=== PATIENT | female | born 1950 | race Caucasian/White ===

== ENCOUNTER 2020-02-12 11:54 | Outpatient (REF) | payer OTHER, SELFPAY ==
--- NOTE | 2020-02-12 12:09 | MM_ITS ---
EXAMINATION: MM SCREENING DIGITAL BREAST TOMOSYNTHESIS, BILATERAL CLINICAL INFORMATION: Screening. Asymptomatic. The lifetime risk of breast cancer based on the Tyrer-Cuzick Model is 5%. COMPARISON: Mammography: 10/12/2018, 05/28/2017 TECHNIQUE: Digital breast tomosynthesis is performed in both the craniocaudal and mediolateral oblique views along with computer-aided detection (CAD). Synthesized 2D images are generated from the tomosynthesis. FINDINGS: There are scattered areas of fibroglandular density (ACR BI-RADS breast composition Category b). There are no significant masses, abnormal calcifications, or other abnormalities. There are bilateral vascular calcifications again. There are some prominent veins again seen, greater on right. MM/MM tomosynthesis screening BI IMPRESSION: No significant changes from prior studies. ASSESSMENT: BI-RADS 2: Benign RECOMMENDATION: Routine annual mammography screening. This patient's information was entered into a reminder system with a target due date for their next mammogram.
== END 2020-02-12 11:55 | disposition home or self-care (01) ==
LOC: HO.MAMMO 11:54
PROVIDERS: Visit Provider Internal Medicine
DX: Z12.31 Encounter for screening mammogram for malignant neoplasm of breast (principal)
CPT/HCPCS: 77063; 77067

== ENCOUNTER → 2020-03-30 09:59 | Outpatient (BNVA) | payer OTHER, SELFPAY | PROVIDERS: PCP Internal Medicine; Referring Provider Internal Medicine; Visit Provider Internal Medicine Endocrinology, Diabetes & Metabolism | DX: Z13.89 Encounter for screening for other disorder (principal) | CPT/HCPCS: Q3014 ==

== ENCOUNTER 2020-05-28 10:36 | Outpatient (REF) | payer OTHER, SELFPAY ==
[2020-05-28 14:26] LABS: Alanine Aminotransferase 25 U/L (0-31); Albumin Level 4.2 g/dL (3.5-5.0); Alkaline Phosphatase 50 U/L (39-117); Anion Gap 16 (12-20); Aspartate Amino Transferase 24 U/L (5-31); Bilirubin Total 0.4 mg/dL (0.0-1.0); Blood Urea Nitrogen 31 mg/dL (9-16); Calcium 10.1 mg/dL (8.4-10.2); Carbon Dioxide 23 mmol/L (22-29); Chloride 105 mmol/L (96-108); Estimated Glomerular Filt Rate 44; Glucose Fasting 184 mg/dL (60-99); Potassium 4.7 mmol/L (3.3-5.1); Sodium 139 mmol/L (135-145); Total Protein 7.2 g/dL (6.5-8.0)
[2020-05-28 14:29] LABS: Estimated Average Glucose 180 mg/dL; Hemoglobin A1c % 7.9 %
[2020-06-02 07:22] LABS: N-Telopeptide 8 (see note); NTXCreaRU 59 mg/dL (20-275)
== END 2020-05-28 10:37 | disposition home or self-care (01) ==
LOC: HO.10HDL 10:36
PROVIDERS: Visit Provider Internal Medicine Endocrinology, Diabetes & Metabolism
DX: M81.0 Age-related osteoporosis without current pathological fracture (principal); E11.65 Type 2 diabetes mellitus with hyperglycemia
CPT/HCPCS: 36415; 80053; 82523; 83036

== ENCOUNTER → 2020-06-21 07:56 | Outpatient (BNVA) | payer OTHER, SELFPAY | PROVIDERS: PCP Internal Medicine; Visit Provider Internal Medicine Endocrinology, Diabetes & Metabolism | DX: E11.65 Type 2 diabetes mellitus with hyperglycemia (principal); E11.21 Type 2 diabetes mellitus with diabetic nephropathy; E11.319 Type 2 diabetes mellitus with unspecified diabetic retinopathy without macular edema; Z79.4 Long term (current) use of insulin; E78.5 Hyperlipidemia, unspecified; I10 Essential (primary) hypertension; M81.0 Age-related osteoporosis without current pathological fracture | CPT/HCPCS: 82947; 96402; 99212; J0897 ==

== ENCOUNTER 2020-07-22 10:28 | Outpatient (REF) | payer OTHER, SELFPAY ==
--- NOTE | ~2020-07-22 | XR_ITS ---
EXAMINATION: XR THORACIC SPINE CLINICAL INFORMATION: Pain COMPARISON: Previous thoracic spine x-ray July 2016 TECHNIQUE: 3 views of the thoracic spine were obtained. FINDINGS: There is mild curvature of the lower thoracic spine to the right. Bone alignment is otherwise normal. No fracture or dislocation is seen. There is multilevel degenerative spondylosis and degenerative disc disease of the mid and lower thoracic spine. Paraspinal soft tissues are unremarkable. XR/XR thoracic spine 3V IMPRESSION: Mild scoliosis and degenerative changes.
[2020-07-22 12:45] LABS: Albumin Level 4.1 g/dL (3.5-5.0); Calcium 10.2 mg/dL (8.4-10.2)
== END 2020-07-22 10:29 | disposition home or self-care (01) ==
LOC: HO.XRAY 10:28
PROVIDERS: Absent Provider Internal Medicine; PCP Internal Medicine; Visit Provider Internal Medicine Endocrinology, Diabetes & Metabolism
DX: M54.9 Dorsalgia, unspecified (principal); M81.0 Age-related osteoporosis without current pathological fracture
CPT/HCPCS: 36415; 72072; 82040; 82310

== ENCOUNTER → 2020-10-01 09:23 | Outpatient (BNVA) | payer OTHER, SELFPAY | PROVIDERS: PCP Internal Medicine; Visit Provider Internal Medicine Endocrinology, Diabetes & Metabolism | DX: E11.65 Type 2 diabetes mellitus with hyperglycemia (principal); E11.21 Type 2 diabetes mellitus with diabetic nephropathy; E11.319 Type 2 diabetes mellitus with unspecified diabetic retinopathy without macular edema; E78.5 Hyperlipidemia, unspecified; I10 Essential (primary) hypertension; M81.0 Age-related osteoporosis without current pathological fracture; Z79.4 Long term (current) use of insulin | CPT/HCPCS: 82947; 99212 ==

== ENCOUNTER 2020-12-22 08:51 | Outpatient (REF) | payer OTHER, SELFPAY ==
[2020-12-22 10:26] LABS: Albumin Level 4.4 g/dL (3.5-5.0); Calcium 10.5 mg/dL (8.4-10.2)
[2020-12-22 10:53] LABS: Vitamin D 25-OH Total 25.5 ng/mL (>30)
[2020-12-27 16:41] LABS: N-Telopeptide 16 (see note); NTXCreaRU 89 mg/dL (20-275)
== END 2020-12-22 08:52 | disposition home or self-care (01) ==
LOC: HO.LAB 08:51
PROVIDERS: PCP Internal Medicine; Visit Provider Internal Medicine Endocrinology, Diabetes & Metabolism
DX: M81.0 Age-related osteoporosis without current pathological fracture (principal)
CPT/HCPCS: 36415; 82040; 82306; 82310; 82523

== ENCOUNTER 2021-01-17 10:17 | Outpatient (REF) | payer OTHER, SELFPAY ==
[2021-01-17 11:09] LABS: Alanine Aminotransferase 23 U/L (0-31); Albumin Level 4.2 g/dL (3.5-5.0); Alkaline Phosphatase 67 U/L (39-117); Anion Gap 12 (12-20); Aspartate Amino Transferase 26 U/L (5-31); Bilirubin Total 0.4 mg/dL (0.0-1.0); Blood Urea Nitrogen 33 mg/dL (9-16); Calcium 10.2 mg/dL (8.4-10.2); Carbon Dioxide 28 mmol/L (22-29); Chloride 103 mmol/L (96-108); Estimated Glomerular Filt Rate 37; Glucose Random 120 mg/dL (60-115); Phosphorus 3.1 mg/dL (2.7-4.5); Potassium 4.3 mmol/L (3.3-5.1); Sodium 139 mmol/L (135-145); Total Protein 7.4 g/dL (6.5-8.0)
[2021-01-17 11:38] LABS: Vitamin D 25-OH Total 26.2 ng/mL (>30)
[2021-01-18 14:31] LABS: Calcium (PTHI) 9.9 mg/dL (8.6-10.4); PTHI 158 pg/mL (14-64)
== END 2021-01-17 10:18 | disposition home or self-care (01) ==
LOC: HO.LAB 10:17
PROVIDERS: PCP Internal Medicine; Visit Provider Internal Medicine
DX: E55.9 Vitamin D deficiency, unspecified (principal); M81.0 Age-related osteoporosis without current pathological fracture
CPT/HCPCS: 36415; 80053; 82306; 83970; 84100

== ENCOUNTER 2021-01-21 10:39 | Outpatient (REF) | payer OTHER, SELFPAY ==
[2021-01-21 13:46] LABS: Anion Gap 12 (12-20); Blood Urea Nitrogen 35 mg/dL (9-16); Calcium 9.8 mg/dL (8.4-10.2); Carbon Dioxide 26 mmol/L (22-29); Chloride 104 mmol/L (96-108); Estimated Glomerular Filt Rate 39; Glucose Random 222 mg/dL (60-115); Potassium 5.1 mmol/L (3.3-5.1); Sodium 137 mmol/L (135-145)
== END 2021-01-21 10:40 | disposition home or self-care (01) ==
LOC: HO.10HDL 10:39
PROVIDERS: Visit Provider Internal Medicine
DX: M81.0 Age-related osteoporosis without current pathological fracture (principal)
CPT/HCPCS: 36415; 80048

== ENCOUNTER 2021-12-01 14:23 | Outpatient (REF) | payer OTHER, SELFPAY ==
--- NOTE | ~2021-12-01 | MM_ITS ---
EXAMINATION: BONE DENSITOMETRY CLINICAL INDICATION: Age-related osteoporosis without current pathological fracture. COMPARISON: Previous BD dated 10/07/2019 and baseline BD dated 10/02/2017. TECHNIQUE: Using a [employer] DXA System (software version: 13.1) manufactured by [employer], dual-energy x-ray absorptiometry was performed of the lumbar spine and left hip. The images are of good technical quality. Summary results are attached. FINDINGS: AP SPINE L1-L4: Current: BMD 0.821 g/cm2, Z-score -0.8, T-score -3.0, osteoporosis, 6.8% decrease from previous, 9.2% increase from baseline (<5% change is not significant). Prior: BMD 0.881 g/cm2. Baseline: BMD 0.752 g/cm2. LEFT FEMUR, NECK: Current: BMD 0.557 g/cm2, Z-score -1.4, T-score -3.5, osteoporosis. Prior: BMD 0.650 g/cm2. Baseline: BMD 0.619 g/cm2. LEFT FEMUR, TOTAL: Current: BMD 0.591 g/cm2, Z-score -1.4, T-score -3.3, osteoporosis, 12.6% decrease from previous, 10.6% decrease from baseline (<5% change is not significant). Prior: BMD 0.676 g/cm2. Baseline: BMD 0.661 g/cm2. IDENTIFIED RISK FACTORS: Renal, history of fracture (adult), osteoporosis, anticonvulsant. Early menopause, secondary osteoporosis, glucocorticoids (chronic). HISTORY OF FRACTURE: Ankle. MEDICATIONS: Vitamin D. MM/XR DEXA axial skeleton IMPRESSION: 1. DIAGNOSIS: Osteoporosis based on the lowest T-score value of -3.5 in the femoral neck applying World Health Organization criteria. 2. 10-YEAR FRACTURE RISK PREDICTION, FRAX: According to the guidelines, FRAX calculation should only be performed on patients in the osteopenia bone density category. Therefore, FRAX was not performed on this patient. 3. Treatment Recommendations: NOF guidelines recommend consideration for treatment in postmenopausal women and men age 50 and older presenting with the following: -A hip or vertebral (clinical or morphometric) fracture. -T-score less than or equal to -2.5 at the femoral neck or spine after appropriate evaluation to exclude secondary causes. -Low bone mass at the hip or spine and a 10-year fracture probability by FRAX of greater than or equal to 3% for hip fracture or greater than or equal to 20% for major osteoporotic fracture based on the [place] adapted WHO algorithm. 4. Other Recommendations: All treatment decisions require clinical judgment and consideration of individual patient factors, including patient preferences, comorbidities, previous drug use, risk factors not captured in the FRAX model (e.g. frailty, falls, vitamin D deficiency, increased bone turnover, interval significant decline in bone density) and possible under or overestimation of fracture risk by FRAX. Additional medical evaluation for secondary cause of low bone mineral density may be appropriate. FUTURE SCAN RECOMMENDATION: People with diagnosed cases of osteoporosis or at high risk for fracture should have regular bone mineral density tests. For patients eligible for Medicare, routine testing is allowed once every 2 years. The testing frequency can be increased to one year for patients who have rapidly progressing disease, those who are receiving or discontinuing medical therapy to restore bone mass, or have additional risk factors.
== END 2021-12-01 14:24 | disposition home or self-care (01) ==
LOC: HO.MAMMO 14:23
PROVIDERS: PCP Internal Medicine; Visit Provider Internal Medicine Endocrinology, Diabetes & Metabolism
DX: Z13.820 Encounter for screening for osteoporosis (principal); M81.0 Age-related osteoporosis without current pathological fracture; Z78.0 Asymptomatic menopausal state
CPT/HCPCS: 77080

== ENCOUNTER 2021-12-05 10:47 | Outpatient (REF) | payer OTHER, SELFPAY ==
[2021-12-05 15:55] LABS: Albumin Level 4.1 g/dL (3.5-5.0)
[2021-12-07 13:33] LABS: Calcium (PTHI) 10.4 mg/dL (8.6-10.4); PTHI 111 pg/mL (16-77)
== END 2021-12-05 10:48 | disposition home or self-care (01) ==
LOC: HO.10HDL 10:47
PROVIDERS: Visit Provider Internal Medicine Endocrinology, Diabetes & Metabolism
DX: E55.9 Vitamin D deficiency, unspecified (principal)
CPT/HCPCS: 36415; 82040; 82306; 83970

== ENCOUNTER → 2021-12-07 12:47 | Outpatient (BNVA) | payer OTHER, SELFPAY | PROVIDERS: PCP Internal Medicine; Visit Provider Internal Medicine Endocrinology, Diabetes & Metabolism | DX: M81.0 Age-related osteoporosis without current pathological fracture (principal); E11.65 Type 2 diabetes mellitus with hyperglycemia; E55.9 Vitamin D deficiency, unspecified; E11.319 Type 2 diabetes mellitus with unspecified diabetic retinopathy without macular edema; E11.22 Type 2 diabetes mellitus with diabetic chronic kidney disease; I12.0 Hypertensive chronic kidney disease with stage 5 chronic kidney disease or end stage renal disease; N18.6 End stage renal disease; Z79.4 Long term (current) use of insulin; Z94.0 Kidney transplant status | CPT/HCPCS: 82947; 83036; 96372; 99212; J0897 ==

== ENCOUNTER → 2021-12-30 10:51 | Outpatient (BNVA) | payer OTHER, SELFPAY | PROVIDERS: PCP Internal Medicine; Visit Provider Registered Nurse Diabetes Educator | DX: E11.319 Type 2 diabetes mellitus with unspecified diabetic retinopathy without macular edema (principal) | CPT/HCPCS: 99211; 99212 ==

== ENCOUNTER 2022-01-13 13:46 | Outpatient (REF) | payer OTHER, SELFPAY ==
[2022-01-13 14:58] LABS: Anion Gap 17 (12-20); Blood Urea Nitrogen 31 mg/dL (9-16); Calcium 10.1 mg/dL (8.4-10.2); Carbon Dioxide 24 mmol/L (22-29); Chloride 101 mmol/L (96-108); Cholesterol 160 mg/dL; Estimated Glomerular Filt Rate 49; Glucose Random 193 mg/dL (60-115); HDL Cholesterol 68 mg/dL; LDL Cholesterol Calculated 68 mg/dl; Potassium 4.5 mmol/L (3.3-5.1); Sodium 137 mmol/L (135-145); Triglycerides 122 mg/dL
[2022-01-13 15:16] LABS: Creatinine Urine 53.16 mg/dL; Microalbum/Creatinine Ratio Ur 82.7 ug/mg cr
[2022-01-13 15:20] LABS: Vitamin D 25-OH Total 24.7 ng/mL (>30)
== END 2022-01-13 13:47 | disposition home or self-care (01) ==
LOC: HO.LAB 13:46
PROVIDERS: PCP Internal Medicine; Visit Provider Internal Medicine Endocrinology, Diabetes & Metabolism
DX: E11.65 Type 2 diabetes mellitus with hyperglycemia (principal); E55.9 Vitamin D deficiency, unspecified
CPT/HCPCS: 36415; 80048; 80061; 82043; 82306; 99211

== ENCOUNTER → 2022-01-24 11:07 | Outpatient (BNVA) | payer OTHER, SELFPAY | PROVIDERS: PCP Internal Medicine; Visit Provider Dietitian, Registered | DX: E11.65 Type 2 diabetes mellitus with hyperglycemia (principal) | CPT/HCPCS: 97802 ==

== ENCOUNTER 2022-04-13 11:49 | Outpatient (REF) | payer OTHER, SELFPAY ==
[2022-04-13 14:07] LABS: Vitamin D 25-OH Total 31.6 ng/mL (>30)
== END 2022-04-13 11:50 | disposition home or self-care (01) ==
LOC: HO.LAB 11:49
PROVIDERS: PCP Internal Medicine; Visit Provider Internal Medicine Endocrinology, Diabetes & Metabolism
DX: E55.9 Vitamin D deficiency, unspecified (principal)
CPT/HCPCS: 36415; 82306

== ENCOUNTER → 2022-04-19 13:46 | Outpatient (BNVA) | payer OTHER, SELFPAY | PROVIDERS: PCP Internal Medicine; Visit Provider Internal Medicine Endocrinology, Diabetes & Metabolism | DX: E11.65 Type 2 diabetes mellitus with hyperglycemia (principal); M81.0 Age-related osteoporosis without current pathological fracture | CPT/HCPCS: 82947; 83036; 99212 ==

== ENCOUNTER → 2022-06-13 09:47 | Outpatient (BNVA) | payer OTHER, SELFPAY | PROVIDERS: PCP Internal Medicine; Visit Provider Internal Medicine Endocrinology, Diabetes & Metabolism | DX: M81.0 Age-related osteoporosis without current pathological fracture (principal); Z79.620 Long term (current) use of immunosuppressive biologic | CPT/HCPCS: 96372; J0897 ==

== ENCOUNTER → 2022-09-01 12:44 | Outpatient (BNVA) | payer OTHER, SELFPAY | PROVIDERS: PCP Internal Medicine; Visit Provider Internal Medicine | DX: Z01.818 Encounter for other preprocedural examination (principal); Z86.010 Personal history of colon polyps | CPT/HCPCS: 99202 ==

== ENCOUNTER 2022-10-24 09:59 | Outpatient (REF) | payer OTHER, SELFPAY ==
[2022-10-24 11:18] LABS: MANUAL DIFF FLAG NO
[2022-10-24 11:36] LABS: Basophils Absolute Auto 0.1 X10*3/uL (0.0-0.2); Basophils Percent Auto 0.5 % (0-2); Eosinophils Absolute Auto 0.5 X10*3/uL (0.0-0.4); Eosinophils Percent Auto 4.2 % (0-4); Hematocrit 36.7 % (37.0-47.0); Hemoglobin 11.7 g/dl (12.0-16.0); Imm Gran Abs Auto 0.06 X10*3/uL (0.00-0.03); Imm Gran Pct Auto 0.5 % (0.0-0.4); Lymphocytes Absolute Auto 2.4 X10*3/uL (1.2-4.9); Mean Corpuscular HGB Conc 31.9 g/dl (31.0-35.0); Mean Corpuscular Hemoglobin 30.2 pg (27.0-33.0); Mean Corpuscular Volume 94.8 fL (80.0-98.0); Mean Platelet Volume 12.3 fL (9.4-12.3); Monocytes Absolute Auto 0.8 X10*3/uL (0.1-1.2); Monocytes Percent Auto 6.5 % (2-11); Neutrophils Absolute Auto 7.8 x10*3/uL (2.0-8.3); Neutrophils Percent Auto 67.3 % (45-73); Platelet Count 294 X10*3/uL (160-400); Red Blood Count 3.87 X10*6/uL (4.20-5.50); Red Cell Distribution Width 18.2 % (11.0-16.0); White Blood Count 11.6 X10*3/uL (4.8-10.8)
[2022-10-24 12:58] LABS: Anion Gap 16 (12-20); Blood Urea Nitrogen 38 mg/dL (9-16); Calcium 9.7 mg/dL (8.4-10.2); Carbon Dioxide 17 mmol/L (22-29); Chloride 114 mmol/L (96-108); Cholesterol 125 mg/dL; Estimated Glomerular Filt Rate 50; HDL Cholesterol 47 mg/dL; Iron 156 mcg/dL (30-160); LDL Cholesterol Calculated 45 mg/dl; Percent Iron Saturation 56 % (15-50); Potassium 4.8 mmol/L (3.3-5.1); Sodium 142 mmol/L (135-145); Total Iron Binding Capacity 277 mcg/dL (228-428); Triglycerides 168 mg/dL; Unsaturated Iron Binding 121 ug/dL; Vitamin D 25-OH Total 33.4 ng/mL (>30)
[2022-10-24 13:23] LABS: Glucose Random 55 mg/dL (60-115)
== END 2022-10-24 10:00 | disposition home or self-care (01) ==
LOC: HO.HHCL 09:59
PROVIDERS: Visit Provider Internal Medicine
DX: E11.22 Type 2 diabetes mellitus with diabetic chronic kidney disease (principal); N18.30 Chronic kidney disease, stage 3 unspecified; R19.7 Diarrhea, unspecified; D50.0 Iron deficiency anemia secondary to blood loss (chronic); Z79.4 Long term (current) use of insulin
CPT/HCPCS: 36415; 80048; 80061; 82306; 83540; 85025

== ENCOUNTER 2022-10-25 14:26 | Outpatient (REF) | payer OTHER, SELFPAY ==
[2022-10-25 17:57] LABS: Leukocytes Stool Qualitative NEGATIVE (NEGATIVE)
[2022-10-26 07:25] LABS: Adenovirus F 40/41 Not Detected (Not Detect.); Astrovirus Not Detected (Not Detect.); Campylobacter Not Detected (Not Detect.); Cryptosporidium Not Detected (Not Detect.); Cyclospora cayetanensis Not Detected (Not Detect.); E. coli EAEC Not Detected (Not Detect.); E. coli EPEC Not Detected (Not Detect.); E. coli ETEC Not Detected (Not Detect.); E. coli STEC Not Detected (Not Detect.); Entamoeba histolytica Not Detected (Not Detect.); Giardia lamblia Not Detected (Not Detect.); Norovirus GI/GII Not Detected (Not Detect.); Plesiomonas shigelloides Not Detected (Not Detect.); Rotavirus A Not Detected (Not Detect.); Salmonella Not Detected (Not Detect.); Sapovirus Not Detected (Not Detect.); Shigella sp./EIEC Not Detected (Not Detect.); Vibrio Not Detected (Not Detect.); Vibrio Cholerae Not Detected (Not Detect.); Yersinia enterocolitica Not Detected (Not Detect.)
[2022-11-01 08:19] LABS: Fecal Fat Qualitative Abnormal (Normal)
== END 2022-10-25 14:27 | disposition home or self-care (01) ==
LOC: HO.HHCLNP 14:26
PROVIDERS: Internal Medicine Geriatric Medicine; Visit Provider Internal Medicine
DX: R19.7 Diarrhea, unspecified (principal)
CPT/HCPCS: 82705; 87329; 87493; 87507; 89055

== ENCOUNTER 2022-11-01 12:21 | Outpatient (AMB) | payer OTHER, SELFPAY ==
--- NOTE | 2022-11-01 12:29 | MHC.OFFVIS ---
Intake Vital Signs 11/01/22 12:33 Height 4 ft 9 in Weight 108 lb 7.479 oz BMI 23.5 BP 118/46 L Blood Pressure Location Rt brachial Position Sitting Pulse 82 Pulse Source Pulse Oximeter Intake Visit Reasons: Osteoporosis and DM Intake Note: Patient present today to follow up on Type 2 Diabetes Mellitus and Osteoporosis. Last Diabetic Eye exam: 04/2022 Last Podiatry Visit: None Random Glucose:79 mg/dl at 12:43 pm 104 mg/dl 1:14 pm HgA1C: 7.0% Property Management Coordinator Required: Yes Property Management Coordinator Language: Citizen Of [place] Accompanied by: Daughter Allergies diphenhydramine [From Benadryl] Adverse Reaction (Verified 11/01/22 12:37) Anxiety HPI HPI Comments History of Present Illness Details 71 yo female today for fup visit, she was seen for diabetes and osteoporosis management She is feeling well. She had the last Prolia shot on 06/13/2022. Her Prolia was withheld by previous provider She is currently on Lantus 10 units , Humalog 2-5 units premeals SGlucometerhe do shows she is checking wnloa her point cares twice a day. Ranges 84 to 50 with average 169 79% range with 21% hyperglycemia and no hypoglycemia 169 reports that no hypoglycemia . She has history of and left ankle fracture after falling in the bathroom 3 years ago treated with surgery. She was on alendronate while she was living on [place] for few years she does not remember how many. Risk factors for osteoporosis is chronic use of PPI. She does not have hyperthyroidism. Had history of secondary hyperparathyroidism due to CKD end-stage renal disease. She has DM type 2 diagnosed 1984. She has other PMH of ESRD s/p kidney transplant on 2011, on prednisone 5 mg daily, Sees Dr. Page of nephrology she had GERD, HTN, dyslipidemia. Osteoporosis. She has retinopathy s/p laser last time 1 year ago. Diabetic nephropathy, neuropathy. no Macrovascular disease. Last ophthalmology evaluation: 04/2022 , she has retinopathy. She has nocturia 1 time only, denies polydipsia, polyuria, + numbness, tingling. denies blurred vision. 10/08/2019 DEXA scan AP SPINE L1-L4: Current: BMD 0.881 g/cm2, Z-score -0.7, T-score -2.5, osteoporosis, 17.2% increase from baseline (<5% change is not significant). Baseline: BMD 0.752 g/cm2. LEFT FEMUR, NECK: Current: BMD 0.650 g/cm2, Z-score -1.0, T-score -2.8, osteoporosis. Baseline: BMD 0.619 g/cm2. LEFT FEMUR, TOTAL: Current: BMD 0.676 g/cm2, Z-score -1.1, T-score -2.6, osteoporosis, 2.3% increase from baseline (<5% change is not significant). Baseline: BMD 0.661 g/cm2. Laboratory Tests 05/15/19 05/15/19 05/20/19 12:00 12:00 09:00 Sodium Potassium Creatinine Estimated GFR Hemoglobin A1c % Calcium AST ALT Alkaline Phosphata se N-Telopeptide X-li nked 25-OH Vitamin D To brendon 54.7 Ur Random Microalb umin Ur 24 Hour Volume 2825 Ur Calcium 24 Hr 31 L Calcium/Creat 24 H r 37 Bone Specific Alk Phos 6.0 08/13/19 05/28/20 05/28/20 11:20 10:45 10:48 Sodium 139 Potassium 4.7 Creatinine 1.22 Estimated GFR 44 Hemoglobin A1c % Calcium AST 24 ALT 25 Alkaline Phosphata se 50 N-Telopeptide X-li nked 8 25-OH Vitamin D To brendon Ur Random Microalb umin 6.0 Ur 24 Hour Volume Ur Calcium 24 Hr Calcium/Creat 24 H r Bone Specific Alk Phos 05/28/20 07/22/20 10:48 11:41 Sodium Potassium Creatinine Estimated GFR Hemoglobin A1c % 7.9 Calcium 10.2 AST ALT Alkaline Phosphata se N-Telopeptide X-li nked 25-OH Vitamin D To brendon Ur Random Microalb umin Ur 24 Hour Volume Ur Calcium 24 Hr Calcium/Creat 24 H r Bone Specific Alk Phos Laboratory Tests 05/15/19 05/20/19 08/13/19 12:00 09:00 11:20 Sodium Potassium Creatinine Estimated GFR Fasting Glucose Hgb A1c Fingerstic k Hemoglobin A1c % Calcium AST ALT Albumin N-Telopeptide X-li nked 25-OH Vitamin D To brendon 54.7 Ur Creatinine 24 H our 0.84 Microalb/Creat Rat io 4.7 12/15/19 05/28/20 05/28/20 10:57 10:45 10:48 Sodium 139 Potassium 4.7 Creatinine 1.22 Estimated GFR 44 Fasting Glucose 184 H Hgb A1c Fingerstic k 8.2 Hemoglobin A1c % Calcium 10.1 AST 24 ALT 25 Albumin 4.2 N-Telopeptide X-li nked 8 25-OH Vitamin D To brendon Ur Creatinine 24 H our Microalb/Creat Rat io 05/28/20 10:48 Sodium Potassium Creatinine Estimated GFR Fasting Glucose Hgb A1c Fingerstic k Hemoglobin A1c % 7.9 Calcium AST ALT Albumin N-Telopeptide X-li nked 25-OH Vitamin D To brendon Ur Creatinine 24 H our Microalb/Creat Rat io [facility] Medical History (Updated 09/01/22 @ 13:15 by Leny Juarez MD) Diabetes type 2, uncontrolled Diabetic nephropathy associated with type 2 diabetes mellitus Diabetic retinopathy associated with type 2 diabetes mellitus Dyslipidemia Hypertension FCI (current) use of insulin Osteoporosis Vitamin D deficiency Surgical History History of esophagogastroduodenoscopy (EGD) History of renal transplant Hx of arteriovenostomy for renal dialysis Hx of section Hx of colonoscopy Hx of tonsillectomy Family History Father No problems noted. Mother No problems noted. Sister Breast cancer Diabetes Maternal Aunt Cancer Maternal Uncle Cancer Social History Household Members: Spouse Alcohol intake: never Patient Tobacco Use Status: Never used Tobacco service: No Current occupational status: retired Gender identity: Female Physical Exam Vital Signs: Last Vital Signs Pulse 82 11/01/22 12:33 BP 118/46 L 11/01/22 12:33 BMI result Body Mass Index 23.5 Absence of Cushingoid features. Absence of acromegalic features. Neck exam reveals nl size thyroid about 15 gms. No thyroid nodules palpable. No carotid bruits present. Lungs CTA. Heart S1 S2, Reg R/R. No M/R/ G. Skin exam reveals absence of vitiligo or acanthosis nigricans. Abdominal exam reveals Soft NT/ND with NA BS. No organomegaly present. Neck Other: . Extrem Other: Visual exam of foot performed. No ulcerations or open lesions. No onchomycosis, no callouses.Pulses 2 + distally Sensation intact to monofilament exam. Vibratory sensation sensed is decreased with 128 Hz tuning fork Results AMB Hemoglobin A1c AMB Hemoglobin A1c 7.0 % Last Edit by Angle Bowens on 11/01/22 13:03 Results Reviewed Results Reviewed: 11/01/22 12:43 Glucose, Whole Blood Routine 11/01/22 13:12 Glucose, Whole Blood Routine Laboratory Last Values Glucose (Clinic) 104 mg/dL (60-115) 11/01/22 13:12 Hgb A1c (Clinic) 7.0 % (4.0-6.0) H 11/01/22 12:51 Assessment & Plan Assessment & Plan (1) Diabetes type 2, uncontrolled: Code(s): E11.65 - Type 2 diabetes mellitus with hyperglycemia Plan: This 71-year-old female with a history of type 2 diabetes being treated with basal- bolus insulin with excellent glycemic control with microvascular complications of status post renal transplant with CKD stage 3 and diabetic retinopathy Plan is check her point cares pre and post meals. Will arrange for patient to get a Dexcom G7 to rule out any occult hypoglycemia. plan is to continue the current regimen. For now. (2) Osteoporosis: Code(s): M81.0 - Age-related osteoporosis without current pathological fracture Plan: Patient has severe osteoporosis as a very high risk for fracture. She has CKD-bone mineral disease. She was receiving Prolia but this was held for unknown reasons. Secondary workup was negative. The plan is that the patient follow-up with Nephrology for treatment of the CKD-bone mineral disease to be optimized. Otherwise, we will reinitiate Prolia. A dose of Prolia will be given today Orders: Orders AMB Hemoglobin A1c Today E11.65 - Type 2 diabetes mellitus with hyperglycemia Coding Level of Care Code Est Pt Level 4 (74552) Diagnoses Diabetes type 2, uncontrolled E11.65 Osteoporosis M81.0
[2022-11-01 12:33] VITALS: BP 118/46; PULSE 82; BMI 23.5
[2022-11-01 12:47] LABS: Glucose, Whole Blood 79 mg/dL (60-115)
[2022-11-01 13:16] LABS: Glucose, Whole Blood 104 mg/dL (60-115)
== END 2022-11-01 14:31 | disposition home or self-care (01) ==
PROVIDERS: PCP Internal Medicine; Referring Provider Internal Medicine; Visit Provider Internal Medicine Endocrinology, Diabetes & Metabolism
DX: E11.65 Type 2 diabetes mellitus with hyperglycemia (principal); M81.0 Age-related osteoporosis without current pathological fracture
CPT/HCPCS: 99214

== ENCOUNTER → 2022-11-01 12:21 | Outpatient (BNVA) | payer OTHER, SELFPAY | PROVIDERS: Visit Provider Internal Medicine Endocrinology, Diabetes & Metabolism | DX: M81.0 Age-related osteoporosis without current pathological fracture (principal); E11.65 Type 2 diabetes mellitus with hyperglycemia | CPT/HCPCS: 82947; 83036; 99212 ==

== ENCOUNTER 2022-12-19 10:17 | Outpatient (AMB) | payer OTHER, SELFPAY ==
--- NOTE | 2022-12-19 10:23 | AM.OFFVISNUR ---
Intake Intake Visit Reasons: Prolia Allergies diphenhydramine [From Benadryl] Adverse Reaction (Verified 11/01/22 12:37) Anxiety Office Meds Prolia 60 mg/mL subcutaneous syringe Performing Provider: Julius Pelletier MD [place] [facility] Administered by: Sanjay Bright RN on 12/19/22 10:23 Dose Route Admin Location Dispensed Lot Number Expiration Date [place] [employer] 60 mg subcut R arm 1 mL [id number] 11/23/24 [facility] Comments: Patient has a left sided fistula. Left arm contraindicated. Coding Assessment & Plan Assessment & Plan Orders: Orders AMB Denosumab Injection Practice Supplied Today M81.0 - Age-related osteoporosis without current pathological fracture
== END 2022-12-19 10:37 | disposition home or self-care (01) ==
PROVIDERS: PCP Internal Medicine; Visit Provider Internal Medicine Endocrinology, Diabetes & Metabolism
DX: M81.0 Age-related osteoporosis without current pathological fracture (principal)

== ENCOUNTER → 2022-12-19 10:17 | Outpatient (BNVA) | payer OTHER, SELFPAY | PROVIDERS: PCP Internal Medicine; Visit Provider Internal Medicine Endocrinology, Diabetes & Metabolism | DX: M81.0 Age-related osteoporosis without current pathological fracture (principal); Z79.620 Long term (current) use of immunosuppressive biologic | CPT/HCPCS: 96372; J0897 ==

== ENCOUNTER 2023-05-29 09:23 | Outpatient (AMB) | payer OTHER, SELFPAY ==
[2023-05-29 09:29] VITALS: BP 154/64; PULSE 68; BMI 22.9
--- NOTE | 2023-05-29 09:29 | A.OFFVIS_ITS ---
Intake Vital Signs 05/29/23 09:29 Height 4 ft 9 in Weight 106 lb 0.677 oz BMI 22.9 BP 154/64 H Blood Pressure Location Rt brachial Position Sitting Pulse 68 Pulse Source Pulse Oximeter Intake Visit Reasons: DM-confirmed Intake Note: Patient present today to follow up on Type 2 Diabetes Mellitus. Last Diabetic Eye exam: 06/2022 Last Podiatry Visit: Patient doesn't have one. Random Glucose: 82 mg/dl HgA1C: 7.6% Lookback Coordinator Required: Yes Lookback Coordinator Language: Single Spindle Screw Machine Operator Name: Emelina medical staff Information Interpreted: non-clinical & clinical Accompanied by: Daughter Allergies diphenhydramine [From Benadryl] Adverse Reaction (Verified 05/29/23 09:36) Anxiety Medication List - Last Reconciled 05/29/23 by Julius Pelletier MD acetaminophen 500 mg PO NEEDED PRN apixaban (Eliquis) 5 mg PO DAILY ascorbic acid (vitamin C) (Vitamin C) 500 mg PO QAM atorvastatin 80 mg PO BEDTIME blood sugar diagnostic (Segetis Verio test strips) 4 times in day blood-glucose meter (ShopmiumTouch Verio Flex Meter) As directed cholecalciferol (vitamin D3) (Vitamin D3) 50 mcg (2 x 25 mcg (1,000 unit)) PO QAM docusate sodium 100 mg PO BID empagliflozin (Jardiance) 25 mg PO QAM ferrous sulfate 325 mg PO BID fluticasone propionate 50 mcg/actuation 1 - 2 sprays intranasal DAILY PRN gabapentin 100 mg PO DAILY insulin glargine (Lantus Solostar U-100 Insulin) 10 units (0.1 mL) subcut QPM insulin lispro (Humalog KwikPen (U-100) Insulin) 2 - 5 units (0.02 - 0.05 mL) subcut TID insulin NPH and regular human 100 unit/mL (70-30) (Humulin 70/30 U-100 KwikPen) 10 units with breakfast and 5 units with dinner subcut daily; 30 days lancets (Pikanoteuch Delica Plus Lancet) TEST BLOOD SUGAR 4 TIMES A DAY lisinopril 2.5 mg PO QAM melatonin 5 mg PO BEDTIME mycophenolate sodium 180 mg PO BID pantoprazole 40 mg PO DAILY pen needle, diabetic (BD Florencia 2nd Gen Pen Needle) twice a day prednisone 5 mg PO DAILY tacrolimus 3 mg PO BID trazodone 200 mg PO BEDTIME PRN HPI HPI Comments 2 History of Present Illness Details 72 yo female today for fup visit, she was seen for diabetes and osteoporosis management She is feeling well. She had the last Prolia shot on 06/13/2022. Her Prolia was withheld by previous provider She is currently on Lantus 10 units , Humalog 2-5 units premeals SGlucometerhe do shows she is checking wnloa her point cares 3X a day. Ranges 53 to 321with average 173 55% range with 40% hyperglycemia and 5% hypoglycemia reports that no hypoglycemia . Very rare hypoglycemia She has history of and left ankle fracture after falling in the bathroom 3 years ago treated with surgery. She was on alendronate while she was living on [place] for few years she does not remember how many. Risk factors for osteoporosis is chronic use of PPI. She does not have hyperthyroidism. Had history of secondary hyperparathyroidism due to CKD end- stage renal disease. She has DM type 2 diagnosed 1984. She has other PMH of ESRD s/p kidney transplant on 2011, on prednisone 5 mg daily, Sees Dr. Page of nephrology she had GERD, HTN, dyslipidemia. Osteoporosis. She has retinopathy s/p laser last time 1 year ago. Diabetic nephropathy, neuropathy. no Macrovascular disease. Last ophthalmology evaluation: 06/2022 , she has retinopathy. She has nocturia 1 time only, denies polydipsia, polyuria, + numbness, tingling. denies blurred vision. 10/08/2019 DEXA scan AP SPINE L1-L4: Current: BMD 0.881 g/cm2, Z-score -0.7, T-score -2.5, osteoporosis, 17.2% increase from baseline (<5% change is not significant). Baseline: BMD 0.752 g/cm2. LEFT FEMUR, NECK: Current: BMD 0.650 g/cm2, Z-score -1.0, T-score -2.8, osteoporosis. Baseline: BMD 0.619 g/cm2. LEFT FEMUR, TOTAL: Current: BMD 0.676 g/cm2, Z-score -1.1, T-score -2.6, osteoporosis, 2.3% increase from baseline (<5% change is not significant). Baseline: BMD 0.661 g/cm2. Laboratory Tests 05/15/19 05/15/19 05/20/19 12:00 12:00 09:00 Sodium Potassium Creatinine Estimated GFR Hemoglobin A1c % Calcium AST ALT Alkaline Phosphata se N-Telopeptide X-li nked 25-OH Vitamin D To brendon 54.7 Ur Random Microalb umin Ur 24 Hour Volume 2825 Ur Calcium 24 Hr 31 L Calcium/Creat 24 H r 37 Bone Specific Alk Phos 6.0 08/13/19 05/28/20 05/28/20 11:20 10:45 10:48 Sodium 139 Potassium 4.7 Creatinine 1.22 Estimated GFR 44 Hemoglobin A1c % Calcium AST 24 ALT 25 Alkaline Phosphata se 50 N-Telopeptide X-li nked 8 25-OH Vitamin D To brendon Ur Random Microalb umin 6.0 Ur 24 Hour Volume Ur Calcium 24 Hr Calcium/Creat 24 H r Bone Specific Alk Phos 05/28/20 07/22/20 10:48 11:41 Sodium Potassium Creatinine Estimated GFR Hemoglobin A1c % 7.9 Calcium 10.2 AST ALT Alkaline Phosphata se N-Telopeptide X-li nked 25-OH Vitamin D To brendon Ur Random Microalb umin Ur 24 Hour Volume Ur Calcium 24 Hr Calcium/Creat 24 H r Bone Specific Alk Phos Laboratory Tests 05/15/19 05/20/19 08/13/19 12:00 09:00 11:20 Sodium Potassium Creatinine Estimated GFR Fasting Glucose Hgb A1c Fingerstic k Hemoglobin A1c % Calcium AST ALT Albumin N-Telopeptide X-li nked 25-OH Vitamin D To brendon 54.7 Ur Creatinine 24 H our 0.84 Microalb/Creat Rat io 4.7 12/15/19 05/28/20 05/28/20 10:57 10:45 10:48 Sodium 139 Potassium 4.7 Creatinine 1.22 Estimated GFR 44 Fasting Glucose 184 H Hgb A1c Fingerstic k 8.2 Hemoglobin A1c % Calcium 10.1 AST 24 ALT 25 Albumin 4.2 N-Telopeptide X-li nked 8 25-OH Vitamin D To brenodn Ur Creatinine 24 H our Microalb/Creat Rat io 05/28/20 10:48 Sodium Potassium Creatinine Estimated GFR Fasting Glucose Hgb A1c Fingerstic k Hemoglobin A1c % 7.9 Calcium AST ALT Albumin N-Telopeptide X-li nked 25-OH Vitamin D To brendon Ur Creatinine 24 H our Microalb/Creat Rat io on Prolia 60 mg q.6 months. 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 Mother No problems noted. Sister Breast cancer Diabetes Maternal Aunt Cancer Maternal Uncle Cancer Social History Household Members: Spouse Alcohol intake: never Patient Tobacco Use Status: Never used Tobacco service: No Current occupational status: retired Gender identity: Female Physical Exam Vital Signs: Last Vital Signs Pulse 68 05/29/23 09:29 BP 154/64 H 05/29/23 09:29 BMI result Body Mass Index 22.9 Absence of Cushingoid features. Absence of acromegalic features. Neck exam reveals nl size thyroid about 15 gms. No thyroid nodules palpable. No carotid bruits present. Lungs CTA. Heart S1 S2, Reg R/R. No M/R/ G. Skin exam reveals absence of vitiligo or acanthosis nigricans. Abdominal exam reveals Soft NT/ND with NA BS. No organomegaly present. Neck Other: . Extrem Other: Visual exam of foot performed. No ulcerations or open lesions. No onchomycosis, no callouses.Pulses 2 + distally Sensation intact to monofilament exam. Vibratory sensation sensed is decreased with 128 Hz tuning fork Results AMB Hemoglobin A1c AMB Hemoglobin A1c 7.6 % Last Edit by ARTI Lawler on 05/29/23 09:49 Results Reviewed Results Reviewed: Laboratory Last Values Glucose (Clinic) 82 mg/dL (60-115) 05/29/23 09:39 Hgb A1c (Clinic) 7.6 % (4.0-6.0) H 05/29/23 09:48 Assessment & Plan Assessment & Plan (1) Diabetes type 2, uncontrolled: Code(s): E11.65 - Type 2 diabetes mellitus with hyperglycemia Plan: This 71-year-old female with a history of type 2 diabetes being treated with basal- bolus insulin with excellent glycemic control with microvascular complications of status post renal transplant with CKD stage 3 and diabetic retinopathy Plan is check her point cares pre and post meals. Difficult to adjust regimen based on limited data. Will arrange for patient to get a Dexcom G7 to rule out any occult hypoglycemia. plan is to continue the current regimen. For now. (2) Osteoporosis: Code(s): M81.0 - Age-related osteoporosis without current pathological fracture Plan: Patient has severe osteoporosis as a very high risk for fracture. She has CKD- bone mineral disease. She was receiving Prolia but this was held for unknown reasons. Secondary workup was negative. The plan is that the patient follow-up with Nephrology for treatment of the CKD- bone mineral disease to be optimized. A dose of Prolia will be given a few weeks. Will check basic metabolic panel and calcium prior Orders: Orders Albumin Level 2 Weeks M81.0 - Age-related osteoporosis without current pathological fracture Basic Metabolic Panel 2 Weeks M81.0 - Age-related osteoporosis without current pathological fracture AMB Hemoglobin A1c Today E11.65 - Type 2 diabetes mellitus with hyperglycemia, Z13.9 - Encounter for screening, unspecified Calcium 2 Weeks M81.0 - Age-related osteoporosis without current pathological fracture Coding Level of Care Code Est Pt Level 4 (05541) Diagnoses Diabetes type 2, uncontrolled E11.65 Osteoporosis M81.0
[2023-05-29 09:43] LABS: Glucose, Whole Blood 82 mg/dL (60-115)
== END 2023-05-29 09:55 | disposition home or self-care (01) ==
PROVIDERS: PCP Internal Medicine; Visit Provider Internal Medicine Endocrinology, Diabetes & Metabolism
DX: Z13.9 Encounter for screening, unspecified (principal); E11.65 Type 2 diabetes mellitus with hyperglycemia; M81.0 Age-related osteoporosis without current pathological fracture
CPT/HCPCS: 99214

== ENCOUNTER → 2023-05-29 09:23 | Outpatient (BNVA) | payer OTHER, SELFPAY | PROVIDERS: PCP Internal Medicine; Visit Provider Internal Medicine Endocrinology, Diabetes & Metabolism | DX: E11.65 Type 2 diabetes mellitus with hyperglycemia (principal); M81.0 Age-related osteoporosis without current pathological fracture; Z79.4 Long term (current) use of insulin | CPT/HCPCS: 82947; 83036; 99211; 99212 ==

== ENCOUNTER 2023-05-29 09:55 | Outpatient (AMB) | payer OTHER, SELFPAY ==
--- NOTE | 2023-05-29 10:39 | A.OFFVIS_ITS ---
Intake Intake Visit Reasons: dm Legal Receptionist Required: Yes Legal Receptionist Language: Javascript Engineer Name: Serafin [facility] [place] Information Interpreted: non-clinical & clinical Accompanied by: Daughter Allergies diphenhydramine [From Benadryl] Adverse Reaction (Verified 05/29/23 09:36) Anxiety HPI Comprehensive Diabetes Asmnt Most Recent Diabetes Results: Cholesterol 125 mg/dL 10/24/22 HDL Cholesterol 47 mg/dL 10/24/22 Triglycerides 168 mg/dL 10/24/22 Creatinine 1.07 mg/dL (0.5-1.4) 10/24/22 Blood Urea Nitrogen 38 mg/dL (9-16) H 10/24/22 Sodium 142 mmol/L (135-145) 10/24/22 Potassium 4.8 mmol/L (3.3-5.1) 10/24/22 Chloride 114 mmol/L (96-108) H 10/24/22 Carbon Dioxide 17 mmol/L (22-29) L 10/24/22 Calcium 9.7 mg/dL (8.4-10.2) 10/24/22 AST 20 U/L (5-31) 07/31/22 ALT 19 U/L (0-31) 07/31/22 Total Protein 7.5 g/dL (6.5-8.0) 07/31/22 Albumin 4.3 g/dL (3.5-5.0) 07/31/22 [facility] Medical History (Updated 12/05/22 @ 11:23 by [employer]) Vitamin D deficiency Hypertension Osteoporosis Diabetic retinopathy associated with type 2 diabetes mellitus Diabetic nephropathy associated with type 2 diabetes mellitus USP (current) use of insulin Dyslipidemia Diabetes type 2, uncontrolled Surgical History History of esophagogastroduodenoscopy (EGD) History of renal transplant Hx of arteriovenostomy for renal dialysis Hx of section Hx of colonoscopy Hx of tonsillectomy Family History Father No problems noted. Mother No problems noted. 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 Patient's daughter stated she knows how to set up Dexcom G7 sensor DIABETES PROBLEMS HOMECARE INSTRUCTIONS Hypo instructions ? When first signs of insulin reaction occur, immediately drink orange juice or cola, or suck on a sugar cube, but only if the person is conscious. ? Person with diabetes should continue taking insulin when ill, unless he/she is not able to eat.? Regularly check blood sugar or urine for sugar and acetone during illness. ? Exercise regularly. ? Pay special attention to the feet.? Avoid cuts, sores, blisters, ill-fitting shoes, or going barefoot.? Promptly treat injuries to the feet. ? Take medications as directed by physician. ? Drink extra water or noncaffeinated, nonsugared drinks to prevented hydration. Signs and symptoms of low blood sugar (happen quickly) Each person's reaction to low blood sugar is different. Learn your own signs and symptoms of when your blood sugar is low. Taking time to write these symptoms down may help you learn your own symptoms of when your blood sugar is low. From milder, more common indicators to most severe, signs and symptoms of low blood sugar include: Feeling shaky Being nervous or anxious Sweating, chills and clamminess Irritability or impatience Confusion Fast heartbeat Feeling lightheaded or dizzy Hunger Nausea Color draining from the skin (pallor) Feeling Sleepy Feeling weak or having no energy Blurred/impaired vision Tingling or numbness in the lips, tongue, or cheeks Headaches Coordination problems, clumsiness Hypoglycemia or blood glucose under 73 use the rule of 15's: If you have your blood glucose meter test your blood glucose, if you do not have your meter still follow below instruction: Keep quick-sugar foods with you at all times.? Take 15 grams of fast acting carbohydrates. Examples are 4 ounces of fruit juice or regular soda pop, 8 ounces fat-free milk, 1 tablespoon of table sugar, honey or corn syrup, jam, one miniature box of raisins, 7-8 gumdrops or Life Savers candy, 4 glucose tablets, and glucose gel.? Retest blood glucose in 15 minutes, if blood glucose is still under 80,repeat rule of 15's. If blood glucose is under 50, take 30 grams of fast acting carbohydrates If you are having hypoglycemia, or insulin reaction, more that a few times a week, call MD or inclusion special educator F/U BG check Patient Instructions: Al paciente se le entreg? addie muestra del sensor Dexcom G7 El paciente reiniciar? el sensor Dexcom G7 en casa El paciente utilizar? la mildred de 15 para tratar cualquier evento de hipoglucemia por debajo de 73 mg/dL. El paciente diana? un seguimiento con un educador en diabetes en 10 d?as. Coding Level of Care Code Est Pt Level 1 (07577) Diagnoses Diabetes type 2, uncontrolled E11.65 Results AMB Hemoglobin A1c AMB Hemoglobin A1c 7.6 % Last Edit by ARTI Lawler on 05/29/23 09:49
== END 2023-05-29 10:58 | disposition home or self-care (01) ==
PROVIDERS: PCP Internal Medicine; Visit Provider Registered Nurse Diabetes Educator
DX: E11.65 Type 2 diabetes mellitus with hyperglycemia (principal)

== ENCOUNTER 2023-06-01 10:11 | Outpatient (REF) | payer OTHER, SELFPAY ==
[2023-06-01 12:37] LABS: Albumin Level 4.1 g/dL (3.5-5.0); Anion Gap 14 (12-20); Blood Urea Nitrogen 39 mg/dL (9-16); Calcium 9.5 mg/dL (8.4-10.2); Carbon Dioxide 26 mmol/L (22-29); Chloride 107 mmol/L (96-108); Estimated Glomerular Filt Rate 49; Glucose Random 148 mg/dL (60-115); Potassium 4.5 mmol/L (3.3-5.1); Sodium 142 mmol/L (135-145)
== END 2023-06-01 10:12 | disposition home or self-care (01) ==
LOC: HO.HHCL 10:11
PROVIDERS: Visit Provider Internal Medicine Endocrinology, Diabetes & Metabolism
DX: M81.0 Age-related osteoporosis without current pathological fracture (principal)
CPT/HCPCS: 36415; 80048; 82040

== ENCOUNTER 2023-06-12 10:16 | Outpatient (AMB) | payer OTHER, SELFPAY ==
--- NOTE | 2023-06-12 11:10 | A.OFFVIS_ITS ---
Intake Intake Visit Reasons: DM Asphalt Plant Operator Required: Yes Asphalt Plant Operator Language: Technical Cable Jointer Name: Ty Mitchell Information Interpreted: non-clinical & clinical Accompanied by: Daughter Allergies diphenhydramine [From Benadryl] Adverse Reaction (Verified 05/29/23 09:36) Anxiety HPI Comprehensive Diabetes Asmnt Most Recent Diabetes Results: Cholesterol 125 mg/dL 10/24/22 HDL Cholesterol 47 mg/dL 10/24/22 Triglycerides 168 mg/dL 10/24/22 Creatinine 1.10 mg/dL (0.5-1.4) 06/01/23 Blood Urea Nitrogen 39 mg/dL (9-16) H 06/01/23 Sodium 142 mmol/L (135-145) 06/01/23 Potassium 4.5 mmol/L (3.3-5.1) 06/01/23 Chloride 107 mmol/L (96-108) 06/01/23 Carbon Dioxide 26 mmol/L (22-29) 06/01/23 Calcium 9.5 mg/dL (8.4-10.2) 06/01/23 Albumin 4.1 g/dL (3.5-5.0) 06/01/23 [facility] Medical History (Updated 12/05/22 @ 11:23 by [employer] [place]) Vitamin D deficiency Hypertension Osteoporosis Diabetic retinopathy associated with type 2 diabetes mellitus Diabetic nephropathy associated with type 2 diabetes mellitus [facility] (current) use of insulin Dyslipidemia Diabetes type 2, uncontrolled Surgical History History of esophagogastroduodenoscopy (EGD) History of renal transplant Hx of arteriovenostomy for renal dialysis Hx of section Hx of colonoscopy Hx of tonsillectomy Family History Father No problems noted. Mother No problems noted. Sister Breast cancer Diabetes Maternal Aunt Cancer Maternal Uncle Cancer Social History Household Members: Spouse Alcohol intake: never Patient Tobacco Use Status: Never used Tobacco service: No Current occupational status: retired Gender identity: Female Assessment & Plan Assessment & Plan (1) Diabetic retinopathy associated with type 2 diabetes mellitus: Code(s): E11.319 - Type 2 diabetes mellitus with unspecified diabetic retinopathy without macular edema Plan: Personal Continuous Glucose Monitor: Patients CGM information reviewed Reviewed patient's sensor data: Hypoglycemia: ? 35% Hyperglycemia:? 64% Time in Range:? 1% Average glucose for the last 2 weeks? 166 mg/dL Patient is having some postprandial hypoglycemia Reports taking 5-7 units of Humalog before each meal Recommended to patient to reduce Humalog to 4 units before meals, unless it is a large high carbohydrate meal then take 5 units Showed patient and her daughter how to calibrate Dexcom G7 if fingerstick and sensor are more than 60 points apart with steady arrow Reviewed how to interpret trend arrows Reminded patient that to check finger sticks if symptoms do not match sensor reading. Discussed lag time between finger stick and sensor data.? Patient able to insert sensor independently at home without issue.? Patient Instructions: Lantus 10 unidades diarias Humalog 4 unidades antes de las comidas Para comidas copiosas ronen Humalog 5 shannan unidades Seguimiento en 1 mes Coding Level of Care Code Est Pt Level 1 (52764) Diagnoses Diabetic retinopathy associated with type 2 diabetes mellitus E11.319
== END 2023-06-12 11:13 | disposition home or self-care (01) ==
PROVIDERS: PCP Internal Medicine; Visit Provider Registered Nurse Diabetes Educator
DX: E11.319 Type 2 diabetes mellitus with unspecified diabetic retinopathy without macular edema (principal)

== ENCOUNTER → 2023-06-12 10:16 | Outpatient (BNVA) | payer OTHER, SELFPAY | PROVIDERS: PCP Internal Medicine; Visit Provider Registered Nurse Diabetes Educator | DX: E11.319 Type 2 diabetes mellitus with unspecified diabetic retinopathy without macular edema (principal); E11.21 Type 2 diabetes mellitus with diabetic nephropathy; Z79.4 Long term (current) use of insulin | CPT/HCPCS: 99211 ==

== ENCOUNTER 2023-06-19 09:49 | Outpatient (AMB) | payer OTHER, SELFPAY ==
--- NOTE | 2023-06-19 10:16 | AM.OFFVISNUR ---
Intake Intake Visit Reasons: Prolia inj Allergies diphenhydramine [From Benadryl] Adverse Reaction (Verified 05/29/23 09:36) Anxiety Office Meds Prolia 60 mg/mL subcutaneous syringe Performing Provider: Julius Pelletier MD Performing Location: [facility] [place] Endocrinology Administered by: Emelina Levy LPN on 06/19/23 10:16 Dose Route Admin Location Dispensed Lot Number Expiration Date NDC Flatwork Feeder 60 mg subcut Right upper arm 1 mL [id number] 08/23/25 [facility] Coding Assessment & Plan Assessment & Plan Orders: Orders AMB Denosumab Injection Practice Supplied Today M81.0 - Age-related osteoporosis without current pathological fracture
== END 2023-06-19 10:14 | disposition home or self-care (01) ==
PROVIDERS: PCP Internal Medicine
DX: M81.0 Age-related osteoporosis without current pathological fracture (principal)

== ENCOUNTER → 2023-06-19 09:49 | Outpatient (BNVA) | payer OTHER, SELFPAY | PROVIDERS: PCP Internal Medicine | DX: M81.0 Age-related osteoporosis without current pathological fracture (principal) | CPT/HCPCS: 96372; J0897 ==

== ENCOUNTER 2023-07-12 10:01 | Outpatient (AMB) | payer OTHER, SELFPAY ==
--- NOTE | 2023-07-12 10:31 | A.OFFVIS_ITS ---
Intake Intake Visit Reasons: DM 30 min Counselor At Law Required: Yes Counselor At Law Language: Lodge Sales Associate Name: [facility] [place] Accompanied by: Daughter Allergies diphenhydramine [From Benadryl] Adverse Reaction (Verified 05/29/23 09:36) Anxiety HPI Comprehensive Diabetes Asmnt Most Recent Diabetes Results: Microalb/Creat Ratio 82.7 ug/mg cr 01/13/22 Cholesterol 125 mg/dL 10/24/22 HDL Cholesterol 47 mg/dL 10/24/22 Triglycerides 168 mg/dL 10/24/22 Creatinine 1.10 mg/dL (0.5-1.4) 06/01/23 Blood Urea Nitrogen 39 mg/dL (9-16) H 06/01/23 Sodium 142 mmol/L (135-145) 06/01/23 Potassium 4.5 mmol/L (3.3-5.1) 06/01/23 Chloride 107 mmol/L (96-108) 06/01/23 Carbon Dioxide 26 mmol/L (22-29) 06/01/23 Calcium 9.5 mg/dL (8.4-10.2) 06/01/23 AST 20 U/L (5-31) 07/31/22 ALT 19 U/L (0-31) 07/31/22 Total Protein 7.5 g/dL (6.5-8.0) 07/31/22 Albumin 4.1 g/dL (3.5-5.0) 06/01/23 [facility] Medical History (Updated 12/05/22 @ 11:23 by [employer] [place]) Vitamin D deficiency Hypertension Osteoporosis Diabetic retinopathy associated with type 2 diabetes mellitus Diabetic nephropathy associated with type 2 diabetes mellitus halfway (current) use of insulin Dyslipidemia Diabetes type 2, uncontrolled Surgical History History of esophagogastroduodenoscopy (EGD) History of renal transplant Hx of arteriovenostomy for renal dialysis Hx of section Hx of colonoscopy Hx of tonsillectomy Family History Father No problems noted. Mother No problems noted. Sister Breast cancer Diabetes Maternal Aunt Cancer Maternal Uncle Cancer Social History Household Members: Spouse Alcohol intake: never Patient Tobacco Use Status: Never used Tobacco service: No Current occupational status: retired Gender identity: Female Assessment & Plan Assessment & Plan (1) Diabetic nephropathy associated with type 2 diabetes mellitus: Code(s): E11.21 - Type 2 diabetes mellitus with diabetic nephropathy Plan: Learning objectives: The patient was provided with verbal and written education on the following topics as outlined below. The patient met all learning objectives and was able to verbalize understanding and provide teach back of education topics discussed . The patient was provided with the opportunity to ask questions and all questions were answered. Patient Assessment Assess patient education level/literacy/barriers Patient questions/concerns, Patient having some morning hypoglycemia due to downward trend overnight. Reduce Lantus from 10 units to 8 units while patient at visit glucose level was 67 mg/dL trending downward, patient was given 4 oz regular yunier darrian, waited 15 minutes patient left visit with glucose at 76 mg/dL with arrow trending to the side. Instructed patient how to use rule of 15 to treat any hypoglycemic events, instructed patient that she should have meal or snack after treating low blood sugar at today's visit What is Diabetes? Pathophysiology How the body produces and uses insulin Identify type of DM Risk factors Signs of Diabetes Brief overview of Diabetes Management Monitoring blood sugar Following a meal plan Regular exercise Maintaining a healthy weight Taking medication as needed Members of the care team (PCP, RN, MA, RD, CDE, wire steward) Blood glucose monitoring When/how often to test Target blood sugar ranges Patient uses freestyle Nory 2 Patient's average glucose for the past 14 days 168 mg/dL Patient above target 36% Patient at target 63% Patient below target 1% Introduction to Nutrition Importance of healthy diet in managing DM Diet is personalized to individual preference Review patient?s regular diet/food preferences Who prepares meals/does food shopping/ Dining out?/ Barriers? How diet effects glucose Eating 3 balanced meals a day with small, healthy snacks between meals Review food groups Carbohydrates: What is a carbohydrate/Which food/food groups are considered carbohydrates Effect of carbohydrates on blood glucose Portion sizes Reading food labels Basic carb counting (if applicable per nursing assessment) Plate method Meal planning Recommendations: Follow plate method, consistent carbs and read nutritional labels. Smart Goal: Patient will treat episodes of hypoglycemia with rule of 15s Educational Materials: The patient was provided with the following written educational materials: Planning Healthy Meals, rule of 15s Handouts in Setsw[place] Patient Response to instructions: Comprehension of Instructions: Fair Readiness to make changes: Contemplation How confident they feel about making changes: Positive Patient Instructions: Lantus 8 unidades diarias Humalog 4 unidades antes de las comidas Para comidas copiosas ronen Humalog 5 shannan unidades Seguimiento en 3 mes Coding Level of Care Code Est Pt Level 1 (29367) Diagnoses Diabetic nephropathy associated with type 2 diabetes mellitus E11.21
== END 2023-07-12 10:44 | disposition home or self-care (01) ==
PROVIDERS: PCP Internal Medicine; Visit Provider Registered Nurse Diabetes Educator
DX: E11.21 Type 2 diabetes mellitus with diabetic nephropathy (principal)

== ENCOUNTER → 2023-07-12 10:01 | Outpatient (BNVA) | payer OTHER, SELFPAY | PROVIDERS: PCP Internal Medicine; Visit Provider Registered Nurse Diabetes Educator | DX: E11.21 Type 2 diabetes mellitus with diabetic nephropathy (principal); Z79.4 Long term (current) use of insulin | CPT/HCPCS: 99211 ==

== ENCOUNTER 2023-08-23 10:36 | Outpatient (REF) | payer OTHER, SELFPAY ==
--- NOTE | ~2023-08-23 | MM_ITS ---
EXAMINATION: MM SCREENING DIGITAL BREAST TOMOSYNTHESIS, BILATERAL CLINICAL INFORMATION: Screening. Asymptomatic. COMPARISON: Mammography: This study is compared with prior exams dating back to 2019. TECHNIQUE: Digital breast tomosynthesis is performed in both the craniocaudal and mediolateral oblique views along with computer-aided detection (CAD). Synthesized 2D images are generated from the tomosynthesis. FINDINGS: There are scattered areas of fibroglandular density (ACR BI-RADS breast composition Category b). There are no significant masses, abnormal calcifications, or other abnormalities. There are bilateral, benign calcifications. MM/MM tomosynthesis screening BI IMPRESSION: No mammographic evidence of malignancy. ASSESSMENT: BI-RADS BI-RADS 2 - Benign Findings RECOMMENDATION: Routine annual mammography screening. 1 year F/U This examination should not preclude the clinical evaluation of a suspicious palpable abnormality. This patient's information was entered into a reminder system with a target due date for their next mammogram.
== END 2023-08-23 10:37 | disposition home or self-care (01) ==
LOC: HO.MAMMO 10:36
PROVIDERS: PCP Internal Medicine; Visit Provider Internal Medicine
DX: Z12.31 Encounter for screening mammogram for malignant neoplasm of breast (principal)
CPT/HCPCS: 77063; 77067

== ENCOUNTER → 2023-08-23 11:00 | Outpatient (BNV) | payer OTHER, SELFPAY | PROVIDERS: PCP Internal Medicine; Visit Provider Radiology Diagnostic Radiology | DX: Z12.31 Encounter for screening mammogram for malignant neoplasm of breast (principal) | CPT/HCPCS: 77063; 77067 ==

== ENCOUNTER 2023-10-01 10:03 | Outpatient (AMB) | payer OTHER, SELFPAY ==
[2023-10-01 10:06] VITALS: BP 136/76; PULSE 72; BMI 23.7
--- NOTE | 2023-10-01 10:06 | MHC.OFFVIS ---
Vital Signs 10/01/23 10:06 Height 4 ft 9 in Weight 109 lb 5.588 oz BMI 23.7 BP 136/76 Blood Pressure Location Rt brachial Position Sitting Pulse 72 Pulse Source Pulse Oximeter Intake Visit Reasons: f/u Type 2 DM/osteoporosis Intake Note: Patient presents today to follow up on D2MT and Osteoporosis. Last Diabetic Eye exam: 06/2022 Last Podiatry Visit: Doesn't have one Random Glucose: 180 mg/dl HgA1c: 7.8% Quality Rn Required: Yes Quality Rn Language: Supervisor [employer] Name: Sun Information Interpreted: non-clinical & clinical Accompanied by: Daughter Allergies diphenhydramine [From Benadryl] Adverse Reaction (Verified 10/01/23 10:12) Anxiety Medication List - Last Reconciled 10/01/23 by Julius Pelletier MD acetaminophen 500 mg PO NEEDED PRN apixaban (Eliquis) 5 mg PO DAILY ascorbic acid (vitamin C) (Vitamin C) 500 mg PO QAM atorvastatin 80 mg PO BEDTIME blood sugar diagnostic ([employer] Verio test strips) 4 times in day blood-glucose meter (VeridTouch Verio Flex Meter) As directed cholecalciferol (vitamin D3) (Vitamin D3) 50 mcg (2 x 25 mcg (1,000 unit)) PO QAM docusate sodium 100 mg PO BID empagliflozin (Jardiance) 25 mg PO QAM ferrous sulfate 325 mg PO BID fluticasone propionate 50 mcg/actuation 1 - 2 sprays intranasal DAILY PRN gabapentin 100 mg PO DAILY insulin glargine (Lantus Solostar U-100 Insulin) 10 units (0.1 mL) subcut QPM insulin lispro (Humalog KwikPen (U-100) Insulin) 2 - 5 units (0.02 - 0.05 mL) subcut TID insulin NPH and regular human 100 unit/mL (70-30) (Humulin 70/30 U-100 KwikPen) 10 units with breakfast and 5 units with dinner subcut daily; 30 days lancets ([employer] Delica Plus Lancet) TEST BLOOD SUGAR 4 TIMES A DAY lisinopril 2.5 mg PO QAM melatonin 5 mg PO BEDTIME mycophenolate sodium 180 mg PO BID pantoprazole 40 mg PO DAILY pen needle, diabetic (BD Florencia 2nd Gen Pen Needle) twice a day prednisone 5 mg PO DAILY tacrolimus 3 mg PO BID trazodone 200 mg PO BEDTIME PRN HPI Comments Details: 73 yo female today for fup visit, she was seen for diabetes and osteoporosis management She is feeling well. She had the last Prolia shot on 06/13/2022. Her Prolia was withheld by previous provider She is currently on Lantus 10 units , Humalog 2-5 units premeals, Jardiance 25 mg QD Dexcom download shows average glucose to be 194 with standard deviation of 70. 49% range with 50% hyperglycemia and less than 1% hypoglycemic. Pen shows hypoglycemia occurring after breakfast and continuing throughout the day Eating animal crackers with [place] for breakfast Very rare hypoglycemia recently She has history of and left ankle fracture after falling in the bathroom 3 years ago treated with surgery. She was on alendronate while she was living on [place] for few years she does not remember how many. Risk factors for osteoporosis is chronic use of PPI. She does not have hyperthyroidism. Had history of secondary hyperparathyroidism due to CKD end-stage renal disease. She has DM type 2 diagnosed 1984. She has other PMH of ESRD s/p kidney transplant on 2011, on prednisone 5 mg daily, Sees Dr. Page of nephrology she had GERD, HTN, dyslipidemia. Osteoporosis. She has retinopathy s/p laser last time 1 year ago. Diabetic nephropathy, neuropathy. no Macrovascular disease. Last ophthalmology evaluation: 06/2022 . needs to make appt , she has retinopathy. She has nocturia 1 time only, denies polydipsia, polyuria, + numbness, tingling. denies blurred vision. 10/08/2019 DEXA scan AP SPINE L1-L4: Current: BMD 0.881 g/cm2, Z-score -0.7, T-score -2.5, osteoporosis, 17.2% increase from baseline (<5% change is not significant). Baseline: BMD 0.752 g/cm2. LEFT FEMUR, NECK: Current: BMD 0.650 g/cm2, Z-score -1.0, T-score -2.8, osteoporosis. Baseline: BMD 0.619 g/cm2. LEFT FEMUR, TOTAL: Current: BMD 0.676 g/cm2, Z-score -1.1, T-score -2.6, osteoporosis, 2.3% increase from baseline (<5% change is not significant). Baseline: BMD 0.661 g/cm2. Laboratory Tests 05/15/19 05/15/19 05/20/19 12:00 12:00 09:00 Sodium Potassium Creatinine Estimated GFR Hemoglobin A1c % Calcium AST ALT Alkaline Phosphatase N-Telopeptide X-linked 25-OH Vitamin D Total 54.7 Ur Random Microalbumin Ur 24 Hour Volume 2825 Ur Calcium 24 Hr 31 L Calcium/Creat 24 Hr 37 Bone Specific Alk Phos 6.0 08/13/19 05/28/20 05/28/20 11:20 10:45 10:48 Sodium 139 Potassium 4.7 Creatinine 1.22 Estimated GFR 44 Hemoglobin A1c % Calcium AST 24 ALT 25 Alkaline Phosphatase 50 N-Telopeptide X-linked 8 25-OH Vitamin D Total Ur Random Microalbumin 6.0 Ur 24 Hour Volume Ur Calcium 24 Hr Calcium/Creat 24 Hr Bone Specific Alk Phos 05/28/20 07/22/20 10:48 11:41 Sodium Potassium Creatinine Estimated GFR Hemoglobin A1c % 7.9 Calcium 10.2 AST ALT Alkaline Phosphatase N-Telopeptide X-linked 25-OH Vitamin D Total Ur Random Microalbumin Ur 24 Hour Volume Ur Calcium 24 Hr Calcium/Creat 24 Hr Bone Specific Alk Phos Laboratory Tests 05/15/19 05/20/19 08/13/19 12:00 09:00 11:20 Sodium Potassium Creatinine Estimated GFR Fasting Glucose Hgb A1c Fingerstick Hemoglobin A1c % Calcium AST ALT Albumin N-Telopeptide X-linked 25-OH Vitamin D Total 54.7 Ur Creatinine 24 Hour 0.84 Microalb/Creat Ratio 4.7 12/15/19 05/28/20 05/28/20 10:57 10:45 10:48 Sodium 139 Potassium 4.7 Creatinine 1.22 Estimated GFR 44 Fasting Glucose 184 H Hgb A1c Fingerstick 8.2 Hemoglobin A1c % Calcium 10.1 AST 24 ALT 25 Albumin 4.2 N-Telopeptide X-linked 8 25-OH Vitamin D Total Ur Creatinine 24 Hour Microalb/Creat Ratio 05/28/20 10:48 Sodium Potassium Creatinine Estimated GFR Fasting Glucose Hgb A1c Fingerstick Hemoglobin A1c % 7.9 Calcium AST ALT Albumin N-Telopeptide X-linked 25-OH Vitamin D Total Ur Creatinine 24 Hour Microalb/Creat Ratio on Prolia 60 mg q.6 months. Had Prolia injection 05/2023. Went to ER for toe infection. Tolerating Prolia well. No fx since last visit [facility] Medical History (Updated 12/05/22 @ 11:23 by [employer] [place]) Vitamin D deficiency Hypertension Osteoporosis Diabetic retinopathy associated with type 2 diabetes mellitus Diabetic nephropathy associated with type 2 diabetes mellitus correction (current) use of insulin Dyslipidemia Diabetes type 2, uncontrolled Surgical History History of esophagogastroduodenoscopy (EGD) History of renal transplant Hx of arteriovenostomy for renal dialysis Hx of section Hx of colonoscopy Hx of tonsillectomy Family History Father No problems noted. Mother No problems noted. Sister Breast cancer Diabetes Maternal Aunt Cancer Maternal Uncle Cancer Social History Household Members: Spouse Alcohol intake: never Patient Tobacco Use Status: Never used Tobacco service: No Current occupational status: retired Gender identity: Female Physical Exam Vital Signs: Last Vital Signs Pulse 72 10/01/23 10:06 BP 136/76 10/01/23 10:06 BMI result Body Mass Index 23.7 Absence of Cushingoid features. Absence of acromegalic features. Neck exam reveals nl size thyroid about 15 gms. No thyroid nodules palpable. No carotid bruits present. Lungs CTA. Heart S1 S2, Reg R/R. No M/R/ G. Skin exam reveals absence of vitiligo or acanthosis nigricans. Abdominal exam reveals Soft NT/ND with NA BS. No organomegaly present. Neck Other: . Extrem Other: Visual exam of foot performed. No ulcerations or open lesions.Right first toenail with healing infection No onchomycosis, no callouses.Pulses 2 + distally Sensation intact to monofilament exam. Vibratory sensation sensed is decreased with 128 Hz tuning fork Results AMB Hemoglobin A1c AMB Hemoglobin A1c 7.8 % Last Edit by ARTI Lawler on 10/01/23 10:24 Results Reviewed Results Reviewed: Laboratory Last Values Hgb A1c (Clinic) 7.8 % (4.0-6.0) H 10/01/23 10:18 Assessment & Plan Assessment & Plan (1) Diabetes type 2, uncontrolled: Code(s): E11.65 - Type 2 diabetes mellitus with hyperglycemia Category: Medical Plan: This 71-year-old female with a history of type 2 diabetes being treated with basal- bolus insulin with fair glycemic control with microvascular complications of status post renal transplant with CKD stage 3 and diabetic retinopathy Plan is modify the carbohydrates and breakfast. If she still continues to experience a post-breakfast hyperglycemia, she will increase the Humalog before breakfast to 4-6 units and by 2 to increments to stop post-prandial hyperglycemia. She will follow up with the primary care diabetes team here. I also referred her to aerospace medicine physician to follow-up her nail bed infection (2) Osteoporosis: Code(s): M81.0 - Age-related osteoporosis without current pathological fracture Category: Medical Plan: Patient has severe osteoporosis as a very high risk for fracture. She has CKD-bone mineral disease. She was receiving Prolia but this was held for unknown reasons. Secondary workup was negative. The plan is continue the Prolia. Patient will follow-up with Nephrology for treatment of the CKD-bone mineral disease to be optimized. Orders: Orders AMB Hemoglobin A1c Today E11.65 - Type 2 diabetes mellitus with hyperglycemia, Z13.9 - Encounter for screening, unspecified Referrals Podiatry Referral E11.65 - Type 2 diabetes mellitus with hyperglycemia Medications: Discontinued insulin NPH and regular human 100 unit/mL (70-30) (Humulin 70/30 U-100 KwikPen) Discontinued Reason: Doctor's Order 10 units with breakfast and 5 units with dinner subcut daily; 30 days 15 mL 6RF E11.65 - Type 2 diabetes mellitus with hyperglycemia Coding Level of Care Code Est Pt Level 4 (96396) Complex EM visit Add On G2211 Diagnoses Diabetes type 2, uncontrolled E11.65 Osteoporosis M81.0
[2023-10-01 10:54] LABS: Glucose, Whole Blood 180 mg/dL (60-115)
== END 2023-10-01 10:44 | disposition home or self-care (01) ==
PROVIDERS: PCP Internal Medicine; Visit Provider Internal Medicine Endocrinology, Diabetes & Metabolism
DX: Z13.9 Encounter for screening, unspecified (principal); E11.65 Type 2 diabetes mellitus with hyperglycemia; M81.0 Age-related osteoporosis without current pathological fracture
CPT/HCPCS: 99214; G2211

== ENCOUNTER → 2023-10-01 10:03 | Outpatient (BNVA) | payer OTHER, SELFPAY | PROVIDERS: PCP Internal Medicine; Visit Provider Internal Medicine Endocrinology, Diabetes & Metabolism | DX: E11.65 Type 2 diabetes mellitus with hyperglycemia (principal); E11.22 Type 2 diabetes mellitus with diabetic chronic kidney disease; N18.30 Chronic kidney disease, stage 3 unspecified; E11.319 Type 2 diabetes mellitus with unspecified diabetic retinopathy without macular edema; M81.0 Age-related osteoporosis without current pathological fracture; Z79.4 Long term (current) use of insulin; Z94.0 Kidney transplant status | CPT/HCPCS: 82947; 83036; 99212 ==

== ENCOUNTER 2023-10-11 10:27 | Outpatient (AMB) | payer OTHER, SELFPAY ==
--- NOTE | 2023-10-11 10:52 | MHC.AMDMED ---
Intake Intake Visit Reasons: DM Geospatial Program Management Officer Required: Yes Geospatial Program Management Officer Language: Railway Traction Line Worker Name: Ralph [facility] Pharmaceutical Worker: Pharmaceutical Worker offered & declined Accompanied by: Daughter Allergies diphenhydramine [From Benadryl] Adverse Reaction (Verified 10/01/23 10:12) Anxiety HPI Comprehensive Diabetes Asmnt Most Recent Diabetes Results: Creatinine 1.10 mg/dL (0.5-1.4) 06/01/23 Blood Urea Nitrogen 39 mg/dL (9-16) H 06/01/23 Sodium 142 mmol/L (135-145) 06/01/23 Potassium 4.5 mmol/L (3.3-5.1) 06/01/23 Chloride 107 mmol/L (96-108) 06/01/23 Carbon Dioxide 26 mmol/L (22-29) 06/01/23 Calcium 9.5 mg/dL (8.4-10.2) 06/01/23 Albumin 4.1 g/dL (3.5-5.0) 06/01/23 [facility] Medical History (Updated 12/05/22 @ 11:23 by [employer]) Vitamin D deficiency Hypertension Osteoporosis Diabetic retinopathy associated with type 2 diabetes mellitus Diabetic nephropathy associated with type 2 diabetes mellitus FPC (current) use of insulin Dyslipidemia Diabetes type 2, uncontrolled Surgical History History of esophagogastroduodenoscopy (EGD) Hx of colonoscopy Hx of section Hx of tonsillectomy Hx of arteriovenostomy for renal dialysis History of renal transplant Family History Father No problems noted. Mother No problems noted. Sister Breast cancer Diabetes Maternal Aunt Cancer Maternal Uncle Cancer Social History Household Members: Spouse Alcohol intake: never Patient Tobacco Use Status: Never used Tobacco service: No Current occupational status: retired Gender identity: Female Assessment & Plan Assessment & Plan (1) Diabetic nephropathy associated with type 2 diabetes mellitus: Code(s): E11.21 - Type 2 diabetes mellitus with diabetic nephropathy Plan: Patient at visit for follow-up blood glucose check, and diabetes education Patient has not received sensors from [employer], message sent to [place] to see status of patient's PA Instructed patient's daughter if she receives call from [employer] she must return the call in order for sensors to be delivered Patient checking glucose 2 to 3 times a day pre meals with glucometer Fasting numbers slightly above target range, numbers before lunch and supper tend to be above target Patient is taking Humalog 5 units before meals Lantus 10 units once a day Patient's last A1c on 10/01/2023 7.8% Patient reports blood sugars below: Date Breakfast/Fasting Pre-Lunch Pre-Supper Bedtime Notes 10/04 174 222 10/05 146 249 156 10/06 159 311 10/07 172 358 122 10/08 168 208 226 10/09 133 199 163 10/10 215 Patient instructed to increase Humalog to 6 units 15 minutes prior to meal Reviewed with patient how to treat low blood glucose with rule of 15s Instructed patient if hypoglycemic events happen post meal to return to Humalog 5 units prior to meals Contact certified adapted physical educator with questions or concerns Portions of this note were created using voice recognition software, please excuse any words or phrases that may have been misinterpreted. Patient Instructions: Humalog 6 unidades antes de las comidas Trate cualquier nivel de glucosa por debajo de 80 mg/dL con 4 oz de jugo o refresco regular. seguimiento con enfermera de educaci?n sobre diabetes en 1 mes Coding Level of Care Code Est Pt Level 1 (53858) Diagnoses Diabetic nephropathy associated with type 2 diabetes mellitus E11.21
== END 2023-10-11 11:08 | disposition home or self-care (01) ==
PROVIDERS: PCP Internal Medicine; Visit Provider Registered Nurse Diabetes Educator
DX: E11.21 Type 2 diabetes mellitus with diabetic nephropathy (principal)

== ENCOUNTER → 2023-10-11 10:27 | Outpatient (BNVA) | payer OTHER, SELFPAY | PROVIDERS: PCP Internal Medicine; Visit Provider Registered Nurse Diabetes Educator | DX: E11.21 Type 2 diabetes mellitus with diabetic nephropathy (principal) | CPT/HCPCS: 99211 ==

== ENCOUNTER → 2023-12-18 10:00 | Outpatient (BNVA) | payer OTHER, SELFPAY | PROVIDERS: PCP Internal Medicine | DX: Z13.89 Encounter for screening for other disorder (principal) ==

== ENCOUNTER 2023-12-24 10:46 | Outpatient (REF) | payer OTHER, SELFPAY ==
[2023-12-24 12:39] LABS: Calcium 9.9 mg/dL (8.4-10.2)
== END 2023-12-24 10:47 | disposition home or self-care (01) ==
LOC: HO.LAB 10:46
PROVIDERS: Internal Medicine Endocrinology, Diabetes & Metabolism; PCP Internal Medicine; Visit Provider Student in an Organized Health Care Education/Training Program
DX: M81.0 Age-related osteoporosis without current pathological fracture (principal)
CPT/HCPCS: 36415; 82310

== ENCOUNTER 2024-01-01 10:36 | Outpatient (REF) | payer OTHER, SELFPAY ==
[2024-01-01 11:36] LABS: MANUAL DIFF FLAG NO
[2024-01-01 11:45] LABS: Basophils Absolute Auto 0.1 X10*3/uL (0.0-0.2); Basophils Percent Auto 0.6 % (0-2); Eosinophils Absolute Auto 0.1 X10*3/uL (0.0-0.4); Eosinophils Percent Auto 1.2 % (0-4); Hematocrit 42.1 % (37.0-47.0); Hemoglobin 13.8 g/dl (12.0-16.0); Imm Gran Abs Auto 0.03 X10*3/uL (0.00-0.03); Imm Gran Pct Auto 0.4 % (0.0-0.4); Lymphocytes Absolute Auto 2.1 X10*3/uL (1.2-4.9); Mean Corpuscular HGB Conc 32.8 g/dl (31.0-35.0); Mean Corpuscular Hemoglobin 30.9 pg (27.0-33.0); Mean Corpuscular Volume 94.4 fL (80.0-98.0); Monocytes Percent Auto 11.8 % (2-11); Neutrophils Absolute Auto 5.2 x10*3/uL (2.0-8.3); Platelet Count 220 X10*3/uL (160-400); Red Blood Count 4.46 X10*6/uL (4.20-5.50); White Blood Count 8.6 X10*3/uL (4.8-10.8)
[2024-01-01 12:09] LABS: Anion Gap 12 (12-20); Blood Urea Nitrogen 35 mg/dL (9-16); Calcium 9.5 mg/dL (8.4-10.2); Carbon Dioxide 26 mmol/L (22-29); Chloride 106 mmol/L (96-108); Cholesterol 138 mg/dL (<200); Estimated Glomerular Filt Rate 50; Glucose Random 156 mg/dL (60-115); HDL Cholesterol 58 mg/dL (>40); LDL Cholesterol Calculated 61 mg/dL (<100); Potassium 4.6 mmol/L (3.3-5.1); Sodium 139 mmol/L (135-145); Triglycerides 97 mg/dL (<150)
[2024-01-01 12:29] LABS: Ferritin 188 ng/mL (10-250); Vitamin D 25-OH Total 37.7 ng/mL (>30)
[2024-01-01 13:37] LABS: Reflex LDLD? No
== END 2024-01-01 10:37 | disposition home or self-care (01) ==
LOC: HO.HHCL 10:36
PROVIDERS: Visit Provider Internal Medicine
DX: E11.22 Type 2 diabetes mellitus with diabetic chronic kidney disease (principal); N18.30 Chronic kidney disease, stage 3 unspecified; Z79.4 Long term (current) use of insulin; K55.9 Vascular disorder of intestine, unspecified; M81.0 Age-related osteoporosis without current pathological fracture
CPT/HCPCS: 36415; 80048; 80061; 82306; 82728; 85025

== ENCOUNTER 2024-01-02 10:53 | Outpatient (AMB) | payer OTHER, SELFPAY ==
[2024-01-02 10:54] VITALS: BP 140/50; PULSE 77; BMI 23.2
--- NOTE | 2024-01-02 10:54 | A.OFFVIS_ITS ---
Vital Signs 01/02/24 10:54 Height 4 ft 9 in Weight 107 lb 2.314 oz BMI 23.2 BP 140/50 H Blood Pressure Location Rt brachial Position Sitting Pulse 77 Pulse Source Pulse Oximeter Intake Visit Reasons: f/u Type 2 DM/osteoporosis/prolia injection Intake Note: Patient presents today for D2MT and Osteoporosis/Prolia injection. Last Diabetic Eye exam: 06/2022 Last Podiatry Visit: Doesn't have one Random Glucose: 119 mg/dl HgA1c: 7.2% Rhic Systems Safety Engineer Required: Yes Rhic Systems Safety Engineer Language: Analyst [employer] Intelligence Name: colin [email or web address] Accompanied by: Daughter Allergies diphenhydramine [From Benadryl] Adverse Reaction (Verified 01/02/24 11:01) Anxiety HPI Comments Details: 73 yo female today for fup visit, she was seen for diabetes and osteoporosis management She is feeling well. She had the last Prolia shot on 06/19/2023. She is due for a shot today She is currently on Lantus 10 units , Humalog 2-5 units premeals, Jardiance 25 mg QD Dexcom download shows average glucose to be 186 with standard deviation of 65. 52% range with 48% hyperglycemia and less than 1% hypoglycemic. Pattern shows hyperglycemia occurring after lunch and continuing throughout the day Eating animal crackers with [place] for breakfast No hypoglycemia recently She has history of and left ankle fracture after falling in the bathroom 3 years ago treated with surgery. She was on alendronate while she was living on [place] for few years she does not remember how many. Risk factors for osteoporosis is chronic use of PPI. She does not have hyperthyroidism. Had history of secondary hyperparathyroidism due to CKD end- stage renal disease. She has DM type 2 diagnosed 1984. She has other PMH of ESRD s/p kidney transplant on 2011, on prednisone 5 mg daily, Sees Dr. Page of nephrology she had GERD, HTN, dyslipidemia. Osteoporosis. She has retinopathy s/p laser last time 1 year ago. Diabetic nephropathy, neuropathy. no Macrovascular disease. Last ophthalmology evaluation: 06/2022 - needs to make appt , she has retinopathy. She has nocturia 1 time only, denies polydipsia, polyuria, + numbness, tingling. denies blurred vision. 10/08/2019 DEXA scan AP SPINE L1-L4: Current: BMD 0.881 g/cm2, Z-score -0.7, T-score -2.5, osteoporosis, 17.2% increase from baseline (<5% change is not significant). Baseline: BMD 0.752 g/cm2. LEFT FEMUR, NECK: Current: BMD 0.650 g/cm2, Z-score -1.0, T-score -2.8, osteoporosis. Baseline: BMD 0.619 g/cm2. LEFT FEMUR, TOTAL: Current: BMD 0.676 g/cm2, Z-score -1.1, T-score -2.6, osteoporosis, 2.3% increase from baseline (<5% change is not significant). Baseline: BMD 0.661 g/cm2. Laboratory Tests 05/15/19 05/15/19 05/20/19 12:00 12:00 09:00 Sodium Potassium Creatinine Estimated GFR Hemoglobin A1c % Calcium AST ALT Alkaline Phosphatase N-Telopeptide X-linked 25-OH Vitamin D Total 54.7 Ur Random Microalbumin Ur 24 Hour Volume 2825 Ur Calcium 24 Hr 31 L Calcium/Creat 24 Hr 37 Bone Specific Alk Phos 6.0 08/13/19 05/28/20 05/28/20 11:20 10:45 10:48 Sodium 139 Potassium 4.7 Creatinine 1.22 Estimated GFR 44 Hemoglobin A1c % Calcium AST 24 ALT 25 Alkaline Phosphatase 50 N-Telopeptide X-linked 8 25-OH Vitamin D Total Ur Random Microalbumin 6.0 Ur 24 Hour Volume Ur Calcium 24 Hr Calcium/Creat 24 Hr Bone Specific Alk Phos 05/28/20 07/22/20 10:48 11:41 Sodium Potassium Creatinine Estimated GFR Hemoglobin A1c % 7.9 Calcium 10.2 AST ALT Alkaline Phosphatase N-Telopeptide X-linked 25-OH Vitamin D Total Ur Random Microalbumin Ur 24 Hour Volume Ur Calcium 24 Hr Calcium/Creat 24 Hr Bone Specific Alk Phos Laboratory Tests 05/15/19 05/20/19 08/13/19 12:00 09:00 11:20 Sodium Potassium Creatinine Estimated GFR Fasting Glucose Hgb A1c Fingerstick Hemoglobin A1c % Calcium AST ALT Albumin N-Telopeptide X-linked 25-OH Vitamin D Total 54.7 Ur Creatinine 24 Hour 0.84 Microalb/Creat Ratio 4.7 09/21/20 03/05/21 03/05/21 10:57 10:45 10:48 Sodium 139 Potassium 4.7 Creatinine 1.22 Estimated GFR 44 Fasting Glucose 184 H Hgb A1c Fingerstick 8.2 Hemoglobin A1c % Calcium 10.1 AST 24 ALT 25 Albumin 4.2 N-Telopeptide X-linked 8 25-OH Vitamin D Total Ur Creatinine 24 Hour Microalb/Creat Ratio 05/28/20 10:48 Sodium Potassium Creatinine Estimated GFR Fasting Glucose Hgb A1c Fingerstick Hemoglobin A1c % 7.9 Calcium AST ALT Albumin N-Telopeptide X-linked 25-OH Vitamin D Total Ur Creatinine 24 Hour Microalb/Creat Ratio on Prolia 60 mg q.6 months. . Tolerating Prolia well. No fx since last visit. To receive Prolia injection today. Not on calcium supplementation [facility] Medical History (Updated 12/05/22 @ 11:23 by [employer] [place]) Vitamin D deficiency Hypertension Osteoporosis Diabetic retinopathy associated with type 2 diabetes mellitus Diabetic nephropathy associated with type 2 diabetes mellitus watermaster (current) use of insulin Dyslipidemia Diabetes type 2, uncontrolled Surgical History History of esophagogastroduodenoscopy (EGD) Hx of colonoscopy Hx of section Hx of tonsillectomy Hx of arteriovenostomy for renal dialysis History of renal transplant Family History Father No problems noted. Mother No problems noted. Sister Breast cancer Diabetes Maternal Aunt Cancer Maternal Uncle Cancer Social History Household Members: Spouse Alcohol intake: never Patient Tobacco Use Status: Never used Tobacco service: No Current occupational status: retired Gender identity: Female Physical Exam Vital Signs: Last Vital Signs Pulse 77 01/02/24 10:54 BP 140/50 H 01/02/24 10:54 BMI result Body Mass Index 23.2 Absence of Cushingoid features. Absence of acromegalic features. Neck exam reveals nl size thyroid about 15 gms. No thyroid nodules palpable. No carotid bruits present. Lungs CTA. Heart S1 S2, Reg R/R. No M/R/ G. Skin exam reveals absence of vitiligo or acanthosis nigricans. Abdominal exam reveals Soft NT/ND with NA BS. No organomegaly present. Neck Other: . Extrem Other: Visual exam of foot performed. No ulcerations or open lesions.Right first toenail with healing infection No onchomycosis, no callouses.Pulses 2 + distally Sensation intact to monofilament exam. Vibratory sensation sensed is decreased with 128 Hz tuning fork Results AMB Hemoglobin A1c AMB Hemoglobin A1c 7.2 % Last Edit by ARTI Lawler on 01/02/24 11:20 Results Reviewed Results Reviewed: Laboratory Last Values Glucose (Clinic) 119 mg/dL (60-115) H 01/02/24 11:08 Hgb A1c (Clinic) 7.2 % (4.0-6.0) H 01/02/24 11:19 Assessment & Plan Assessment & Plan (1) Diabetes type 2, uncontrolled: Code(s): E11.65 - Type 2 diabetes mellitus with hyperglycemia Category: Medical Plan: This 73-year-old female with a history of type 2 diabetes being treated with basal- bolus insulin and Jardiance with fair glycemic control with microvascular complications of status post renal transplant with CKD stage 3 and diabetic retinopathy Plan is increase the Humalog before lunch to 4-8 units and by 2 to increments to stop post-prandial hyperglycemia. She will follow up with the primary care diabetes team here. (2) Osteoporosis: Code(s): M81.0 - Age-related osteoporosis without current pathological fracture Category: Medical Plan: Patient has severe osteoporosis as a very high risk for fracture. She has CKD- bone mineral disease. Secondary workup was negative. In the past, 24 hour urine for calcium was low The plan is continue the Prolia. Patient will follow-up with Nephrology for treatment of the CKD-bone mineral disease to be optimized. Patient will get a Prolia injection today. Will recheck 24 hour urine for calcium and creatinine as well as PTH, calcium, 25 hydroxy vitamin-D adjust calcium supplementation according Orders: Orders Calcium, 24 Hr Ur Today M81.0 - Age-related osteoporosis without current pathological fracture Creatinine, 24 Hr Group Today M81.0 - Age-related osteoporosis without current pathological fracture AMB Hemoglobin A1c Today E11.65 - Type 2 diabetes mellitus with hyperglycemia, Z13.9 - Encounter for screening, unspecified Vitamin D 25-OH Total Today M81.0 - Age-related osteoporosis without current pathological fracture Parathyroid Hormone Intact Today M81.0 - Age-related osteoporosis without current pathological fracture Coding Level of Care Code Est Pt Level 3 (04203) Diagnoses Diabetes type 2, uncontrolled E11.65 Osteoporosis M81.0
[2024-01-02 11:13] LABS: Glucose, Whole Blood 119 mg/dL (60-115)
== END 2024-01-02 11:44 | disposition home or self-care (01) ==
PROVIDERS: PCP Internal Medicine; Visit Provider Internal Medicine Endocrinology, Diabetes & Metabolism
DX: Z13.9 Encounter for screening, unspecified (principal); E11.65 Type 2 diabetes mellitus with hyperglycemia; M81.0 Age-related osteoporosis without current pathological fracture
CPT/HCPCS: 99213

== ENCOUNTER → 2024-01-02 10:53 | Outpatient (BNVA) | payer OTHER, SELFPAY | PROVIDERS: PCP Internal Medicine; Visit Provider Internal Medicine Endocrinology, Diabetes & Metabolism | DX: E11.65 Type 2 diabetes mellitus with hyperglycemia (principal); M81.0 Age-related osteoporosis without current pathological fracture; Z51.81 Encounter for therapeutic drug level monitoring; Z91.81 History of falling; Z79.899 Other long term (current) drug therapy | CPT/HCPCS: 82947; 83036; 96372; 99212; J0897 ==

== ENCOUNTER 2024-01-10 10:25 | Outpatient (REF) | payer OTHER, SELFPAY ==
--- NOTE | ~2024-01-10 | XR_ITS ---
EXAMINATION: XR FOOT, LEFT CLINICAL INFORMATION: Left heel pain. Underlying osteoporosis. History of left ankle fracture with hardware fixation in 2017 COMPARISON: None available. TECHNIQUE: AP, lateral, and oblique views of the left foot. FINDINGS: Degenerative changes are seen at the interphalangeal joints. There is been healing of the previously seen fracture through the base of the proximal phalanx of the fifth digit the distal aspect of the fibular plate and screw is seen along with a smaller plate overlying the distal tibia posteriorly. No acute fractures are seen. Extensive vascular calcification is noted. XR/XR foot LT min 3V IMPRESSION: No acute finding. Degenerative changes as described above. Electronically signed by: Lucas Shi MD 01/10/2024 12:06 PM EDT
== END 2024-01-10 10:26 | disposition home or self-care (01) ==
LOC: HO.HHCX 10:25
PROVIDERS: Visit Provider Family Medicine
DX: M79.672 Pain in left foot (principal)
CPT/HCPCS: 73630

== ENCOUNTER 2024-01-12 15:09 | Outpatient (REF) | payer OTHER, SELFPAY | END 2024-01-12 15:10 | disposition home or self-care (01) | LOC: HO.LNP 15:09 | PROVIDERS: Visit Provider Family Medicine | DX: L03.012 Cellulitis of left finger (principal) | CPT/HCPCS: 87070; 87077; 87186; 87205 ==

== ENCOUNTER 2024-02-01 10:47 | Outpatient (AMB) | payer OTHER, SELFPAY ==
[2024-02-01 10:49] VITALS: BP 152/58; PULSE 78; BMI 23.3
--- NOTE | 2024-02-01 10:49 | MHC.OFFVIS ---
Vital Signs 02/01/24 10:49 Height 4 ft 9 in Weight 107 lb 12.897 oz BMI 23.3 BP 152/58 H Blood Pressure Location Rt brachial Position Sitting Pulse 78 Pulse Source Pulse Oximeter Intake Visit Reasons: T2DM/CONFIRMED Intake Note: Patient presents today for [facility] follow up visit. Last Diabetic Eye exam: Over 1 year ago Last Podiatry Visit: Doesn't have one Random Glucose: 140 mg/dl HgA1c: 7.2% 13/12/23 Welding Production Supervisor Required: Yes Welding Production Supervisor Language: Supervisor Water Softener Service Services: Welding Production Supervisor Present Welding Production Supervisor Name: aJvon Information Interpreted: non-clinical & clinical Accompanied by: Daughter Allergies diphenhydramine [From Benadryl] Adverse Reaction (Verified 02/01/24 10:55) Anxiety Medication List - Last Reconciled 02/01/24 by Bela Jackson PA-C acetaminophen 500 mg PO NEEDED PRN apixaban (Eliquis) 5 mg PO DAILY ascorbic acid (vitamin C) (Vitamin C) 500 mg PO QAM atorvastatin 80 mg PO BEDTIME blood sugar diagnostic (Aspect[employer] Verio test strips) 4 times in day blood-glucose meter ([email or web address] Verio Flex Meter) As directed cholecalciferol (vitamin D3) (Vitamin D3) 50 mcg (2 x 25 mcg (1,000 unit)) PO QAM docusate sodium 100 mg PO BID empagliflozin (Jardiance) 25 mg PO QAM ferrous sulfate 325 mg PO BID fluticasone propionate 50 mcg/actuation 1 - 2 sprays intranasal DAILY PRN gabapentin 100 mg PO DAILY insulin glargine (Lantus Solostar U-100 Insulin) 12 units subcut QPM insulin lispro (Humalog KwikPen (U-100) Insulin) 2 - 5 units (0.02 - 0.05 mL) subcut TID lancets ([email or web address] Delica Plus Lancet) TEST BLOOD SUGAR 4 TIMES A DAY lisinopril 2.5 mg PO QAM melatonin 5 mg PO BEDTIME molnupiravir (Lagevrio) mg PO mycophenolate sodium 180 mg PO BID pantoprazole 40 mg PO DAILY pen needle, diabetic (BD Florencia 2nd Gen Pen Needle) twice a day prednisone 5 mg PO DAILY tacrolimus 3 mg PO BID trazodone 200 mg PO BEDTIME PRN HPI HPI T2DM/CONFIRMED: Details: Patient is a 73-year-old female with a significant past medical history of diabetes, history of end-stage renal disease, s/p renal transplant, hypertension, hyperlipidemia, chronic anticoagulation, osteoporosis presenting today for a follow up regarding her diabetes. Epic Radiant Analyst from hospital present today to help with translation. Patient is also accompanied by her daughter who is a caregiver. Dm-She was seen last month by Dr. Pelletier. Her last A1c was 7.2. She is currently on Jardiance 25 mg daily, Lantus 12 units nightly, Humalog 4-5 units 3 times a day cgm-Dexcom download shows usage 86%. Over the last 14 days 12% very hyperglycemic, hyperglycemic 24%, in range 62%, hypoglycemic 2%, very hypoglycemic 1%. -improved from her visit last month Hypoglycemia seems to be occurring around 3 AM. She believes this happens on days that she does not eat much food at dinner. She will still give herself the Humalog with meals even if she barely eats. Correct low blood sugars with orange juice or glucose tabs. Her appetite has been somewhat reduced in the last month because her just got diagnosed with stage IV lung cancer. This came as a shock to the family as he has never smoked before. Hyperglycemia seems to be occurring around late afternoon and in the evening around 18:00-21:00. Requests a referral to Podiatry. At times gets left heel pain and did see urgent care who thought she maybe had plantar fasciitis. 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 On an GEORGETTE inhibitor Nephro: History of end-stage renal disease, s/p renal transplant 2011. Follows with Dr. Parr. CV: Blood pressure today in the office is 152/58. She is on lisinopril 2.5 mg. Cholesterol controlled with 80 mg of atorvastatin. 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 Mother No problems noted. Sister Breast cancer Diabetes Maternal Aunt Cancer Maternal Uncle Cancer Social History Household Members: Spouse Alcohol intake: never Patient Tobacco Use Status: Never used Tobacco service: No Current occupational status: retired Gender identity: Female Results Reviewed Results Reviewed: Laboratory Tests 01/01/24 01/02/24 02/01/24 10:37 11:19 10:57 Glucose (Clinic) 140 H Hgb A1c (Clinic) 7.2 H Triglycerides 97 Cholesterol 138 LDL Cholesterol, Calc 61 HDL Cholesterol 58 Assessment & Plan Assessment & Plan (1) Diabetic retinopathy associated with type 2 diabetes mellitus: Code(s): E11.319 - Type 2 diabetes mellitus with unspecified diabetic retinopathy without macular edema Category: Medical Plan: We reviewed a Humalog sliding scale and advised to avoid giving herself insulin if she is not eating the meal. We also reviewed eating a small snack prior to bed to see if that helps. She will try this. We reviewed rule of 15. They will let me know if she still continues with any episodes of hypoglycemia. We discussed the importance of trying to eat regularly while on these medications. Continue Lantus 12 units Continue Jardiance Follow up in 3 months. Labs prior to appointment. Patient understands and agrees with this plan. (2) Hypertension: Code(s): I10 - Essential (primary) hypertension Category: Medical Plan: States blood pressures are. We will check and let us or nephrology or PCP know. Orders: Orders Hemoglobin A1c Today E11.319 - Type 2 diabetes mellitus with unspecified diabetic retinopathy without macular edema, I10 - Essential (primary) hypertension Referrals Podiatry Referral E11.319 - Type 2 diabetes mellitus with unspecified diabetic retinopathy without macular edema, M79.672 - Pain in left foot Coding Level of Care Code Est Pt Level 4 (86261) Diagnoses Diabetic retinopathy associated with type 2 diabetes mellitus E11.319 Hypertension I10
[2024-02-01 11:01] LABS: Glucose, Whole Blood 140 mg/dL (60-115)
== END 2024-02-01 11:28 | disposition home or self-care (01) ==
PROVIDERS: PCP Internal Medicine; Visit Provider Physician Assistant
DX: E11.319 Type 2 diabetes mellitus with unspecified diabetic retinopathy without macular edema (principal); I10 Essential (primary) hypertension

== ENCOUNTER → 2024-02-01 10:47 | Outpatient (BNVA) | payer OTHER, SELFPAY | PROVIDERS: PCP Internal Medicine; Visit Provider Physician Assistant | DX: E11.319 Type 2 diabetes mellitus with unspecified diabetic retinopathy without macular edema (principal); I10 Essential (primary) hypertension | CPT/HCPCS: 82947; 99212 ==

== ENCOUNTER 2024-04-02 10:54 | Outpatient (REF) | payer OTHER, SELFPAY ==
--- OUTSIDE RECORDS SUMMARY | 2024-04-02 11:16 | XMS_ITS ---
Author Name [facility] Organization Unknown Problems Problem Status Onset Date Problem Type Date of Resoluti on Source Complication of transplanted kidney, unspecified complication active EncounterDiagnosisAct [facility]
[2024-04-02 11:53] LABS: Estimated Average Glucose 169 mg/dL; Hemoglobin A1c % 7.5 % (<6.0)
[2024-04-02 12:10] LABS: Anion Gap 12 (12-20); Blood Urea Nitrogen 27 mg/dL (9-16); Calcium 9.5 mg/dL (8.4-10.2); Carbon Dioxide 28 mmol/L (22-29); Chloride 105 mmol/L (96-108); Estimated Glomerular Filt Rate 57; Glucose Random 119 mg/dL (60-115); Potassium 4.7 mmol/L (3.3-5.1); Sodium 140 mmol/L (135-145)
[2024-04-02 12:13] LABS: Parathyroid Hormone Intact 137.5 pg/mL (8.7-77.1)
[2024-04-02 12:27] LABS: Vitamin D 25-OH Total 36.8 ng/mL (>30)
== END 2024-04-02 10:55 | disposition home or self-care (01) ==
LOC: HO.LAB 10:54
PROVIDERS: Absent Provider Physician Assistant; PCP Internal Medicine; Visit Provider Internal Medicine Endocrinology, Diabetes & Metabolism
DX: M81.0 Age-related osteoporosis without current pathological fracture (principal); E11.319 Type 2 diabetes mellitus with unspecified diabetic retinopathy without macular edema; I10 Essential (primary) hypertension
CPT/HCPCS: 36415; 80048; 82306; 83036; 83970

== ENCOUNTER 2024-04-04 14:03 | Outpatient (REF) | payer OTHER, SELFPAY ==
[2024-04-04 14:36] LABS: Creatinine, mg/dL 25.25
[2024-04-04 14:39] LABS: Creatinine, 24Hr Urine 0.7 G/Day (1.0-2.0); Total Volume 24 Hour Urine 2900 mL
[2024-04-05 18:03] LABS: Calcium, 24 Hr Urine 23 mg/24 h; Calcium/Creatinine Ratio 30 mg/g creat (30-275); Creatinine 24Hr Urine 0.78 g/24 h (0.50-2.15)
== END 2024-04-04 14:04 | disposition home or self-care (01) ==
LOC: HO.LNP 14:03
PROVIDERS: Visit Provider Internal Medicine Endocrinology, Diabetes & Metabolism
DX: M81.0 Age-related osteoporosis without current pathological fracture (principal)
CPT/HCPCS: 82340; 82570

== ENCOUNTER 2024-04-10 11:16 | Outpatient (AMB) | payer OTHER, SELFPAY ==
--- NOTE | 2024-04-10 11:25 | MHC.OFFVIS ---
Vital Signs 04/10/24 11:28 Height 4 ft 9.44 in Weight 110 lb 3.698 oz BMI 23.5 BP 156/60 H Blood Pressure Location Rt brachial Position Sitting Pulse 71 Pulse Source Pulse Oximeter Intake Visit Reasons: Osteoporosis Intake Note: Patient present today for Osteoporosis follow up. Developmental Services Worker Required: Yes Developmental Services Worker Language: Metal Cut Off Saw Tender Services: Developmental Services Worker Present Developmental Services Worker Name: Ijeoma JACKSON Information Interpreted: non-clinical & clinical Accompanied by: Daughter Allergies diphenhydramine [From Benadryl] Adverse Reaction (Verified 04/10/24 11:29) Anxiety HPI Comments Details: 73 yo female today for fup visit, she was seen for diabetes and osteoporosis management She is feeling well. She had the last Prolia shot on 06/19/2023. She is due for a shot today She is currently on Lantus 10 units , Humalog 2-5 units premeals, Jardiance 25 mg QD Dexcom download shows average glucose to be 186 with standard deviation of 65. 52% range with 48% hyperglycemia and less than 1% hypoglycemic. Pattern shows hyperglycemia occurring after lunch and continuing throughout the day Eating animal crackers with [place] for breakfast No hypoglycemia recently She has history of and left ankle fracture after falling in the bathroom 3 years ago treated with surgery. She was on alendronate while she was living on [place] for few years she does not remember how many. Risk factors for osteoporosis is chronic use of PPI. She does not have hyperthyroidism. Had history of secondary hyperparathyroidism due to CKD end-stage renal disease. She has DM type 2 diagnosed 1984. She has other PMH of ESRD s/p kidney transplant on 2011, on prednisone 5 mg daily, Sees Dr. Page of nephrology she had GERD, HTN, dyslipidemia. Osteoporosis. She has retinopathy s/p laser last time 1 year ago. Diabetic nephropathy, neuropathy. no Macrovascular disease. Last ophthalmology evaluation: 06/2022 - needs to make appt , she has retinopathy. She has nocturia 1 time only, denies polydipsia, polyuria, + numbness, tingling. denies blurred vision. 10/08/2019 DEXA scan AP SPINE L1-L4: Current: BMD 0.881 g/cm2, Z-score -0.7, T-score -2.5, osteoporosis, 17.2% increase from baseline (<5% change is not significant). Baseline: BMD 0.752 g/cm2. LEFT FEMUR, NECK: Current: BMD 0.650 g/cm2, Z-score -1.0, T-score -2.8, osteoporosis. Baseline: BMD 0.619 g/cm2. LEFT FEMUR, TOTAL: Current: BMD 0.676 g/cm2, Z-score -1.1, T-score -2.6, osteoporosis, 2.3% increase from baseline (<5% change is not significant). Baseline: BMD 0.661 g/cm2. Laboratory Tests 05/15/19 05/15/19 05/20/19 12:00 12:00 09:00 Sodium Potassium Creatinine Estimated GFR Hemoglobin A1c % Calcium AST ALT Alkaline Phosphatase N-Telopeptide X-linked 25-OH Vitamin D Total 54.7 Ur Random Microalbumin Ur 24 Hour Volume 2825 Ur Calcium 24 Hr 31 L Calcium/Creat 24 Hr 37 Bone Specific Alk Phos 6.0 08/13/19 05/28/20 05/28/20 11:20 10:45 10:48 Sodium 139 Potassium 4.7 Creatinine 1.22 Estimated GFR 44 Hemoglobin A1c % Calcium AST 24 ALT 25 Alkaline Phosphatase 50 N-Telopeptide X-linked 8 25-OH Vitamin D Total Ur Random Microalbumin 6.0 Ur 24 Hour Volume Ur Calcium 24 Hr Calcium/Creat 24 Hr Bone Specific Alk Phos 05/28/20 07/22/20 10:48 11:41 Sodium Potassium Creatinine Estimated GFR Hemoglobin A1c % 7.9 Calcium 10.2 AST ALT Alkaline Phosphatase N-Telopeptide X-linked 25-OH Vitamin D Total Ur Random Microalbumin Ur 24 Hour Volume Ur Calcium 24 Hr Calcium/Creat 24 Hr Bone Specific Alk Phos Laboratory Tests 05/15/19 05/20/19 08/13/19 12:00 09:00 11:20 Sodium Potassium Creatinine Estimated GFR Fasting Glucose Hgb A1c Fingerstick Hemoglobin A1c % Calcium AST ALT Albumin N-Telopeptide X-linked 25-OH Vitamin D Total 54.7 Ur Creatinine 24 Hour 0.84 Microalb/Creat Ratio 4.7 12/15/19 05/28/20 05/28/20 10:57 10:45 10:48 Sodium 139 Potassium 4.7 Creatinine 1.22 Estimated GFR 44 Fasting Glucose 184 H Hgb A1c Fingerstick 8.2 Hemoglobin A1c % Calcium 10.1 AST 24 ALT 25 Albumin 4.2 N-Telopeptide X-linked 8 25-OH Vitamin D Total Ur Creatinine 24 Hour Microalb/Creat Ratio 05/28/20 10:48 Sodium Potassium Creatinine Estimated GFR Fasting Glucose Hgb A1c Fingerstick Hemoglobin A1c % 7.9 Calcium AST ALT Albumin N-Telopeptide X-linked 25-OH Vitamin D Total Ur Creatinine 24 Hour Microalb/Creat Ratio on Prolia 60 mg q.6 months. . Tolerating Prolia well. No fx since last visit. To receive Prolia injection today. Not on calcium supplementation . 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 Mother No problems noted. Sister Breast cancer Diabetes Maternal Aunt Cancer Maternal Uncle Cancer Social History Household Members: Spouse Alcohol intake: never Patient Tobacco Use Status: Never used Tobacco service: No Current occupational status: retired Gender identity: Female Physical Exam Vital Signs: BMI result Body Mass Index 23.5 Assessment & Plan Assessment & Plan (1) Osteoporosis: Code(s): M81.0 - Age-related osteoporosis without current pathological fracture Category: Medical Plan: Patient has severe osteoporosis as a very high risk for fracture. She has CKD-bone mineral disease. Secondary workup was negative. In the past, 24 hour urine for calcium was low The plan is continue the Prolia. Patient will follow-up with Nephrology for treatment of the CKD-bone mineral disease to be optimized. Patient will get a Prolia injection today. Will have patient start sugar free calcium citrate in the form of Viactiv 500 mg t.i.d. Will recheck 24 hour urine for calcium and creatinine as well as PTH, calcium, 25 hydroxy vitamin-D in 2 months and adjust calcium supplementation according Orders: Orders Vitamin D 25-OH Total 8 Weeks M81.0 - Age-related osteoporosis without current pathological fracture Parathyroid Hormone Intact 8 Weeks M81.0 - Age-related osteoporosis without current pathological fracture Albumin Level 8 Weeks M81.0 - Age-related osteoporosis without current pathological fracture Calcium, 24 Hr Ur 8 Weeks M81.0 - Age-related osteoporosis without current pathological fracture Creatinine, 24 Hr Group 8 Weeks M81.0 - Age-related osteoporosis without current pathological fracture Calcium 8 Weeks M81.0 - Age-related osteoporosis without current pathological fracture Coding Level of Care Code Est Pt Level 3 (21646) Diagnoses Osteoporosis M81.0
[2024-04-10 11:28] VITALS: BP 156/60; PULSE 71; BMI 23.5
== END 2024-04-10 11:46 | disposition home or self-care (01) ==
PROVIDERS: PCP Internal Medicine; Visit Provider Internal Medicine Endocrinology, Diabetes & Metabolism
DX: M81.0 Age-related osteoporosis without current pathological fracture (principal)
CPT/HCPCS: 99213

== ENCOUNTER → 2024-04-10 11:16 | Outpatient (BNVA) | payer OTHER, SELFPAY | PROVIDERS: PCP Internal Medicine; Visit Provider Internal Medicine Endocrinology, Diabetes & Metabolism | DX: M81.0 Age-related osteoporosis without current pathological fracture (principal) | CPT/HCPCS: 99212 ==

== ENCOUNTER 2024-04-23 13:58 | Outpatient (REF) | payer OTHER, SELFPAY ==
[2024-04-23 14:32] LABS: Creatinine, mg/dL 32.51
[2024-04-23 14:41] LABS: Creatinine, 24Hr Urine 0.7 G/Day (1.0-2.0); Total Volume 24 Hour Urine 2300 mL
--- OUTSIDE RECORDS SUMMARY | 2024-04-23 16:19 | XMS_ITS | Clinical Summary ---
Author Organization [facility] Address [address] [place] [phone] Phone Care Team Providers Care Manager Transition Name Role Phone Ana María Bryan MD Primary Care Provider [phone] Allergies Active Allergy Reactions Criticality Noted Date Comments Diphenhydramine Other (see comments) 05/11/2020 Medications atorvastatin (LIPITOR) 80 MG tablet Take 80 mg by mouth at bed time 04/13/2020 Active HumuLIN 70/30 KWIKPEN (70-30) 100 UNIT/ML injection Inject 5 units 04/26/2020 Active Melatonin 5 MG tablet Take 1 tablet by mouth at bed time 04/13/2020 Active pantoprazole (PROTONIX) 40 MG EC tablet Take 1 tablet by mouth 1 (one) time each day Active OneTouch Ultra test strip TEST BLOOD SUGAR FIVE TIMES DAILY 07/28/2020 Active UltiGuard SafePack Pen Needle 32G X 4 MM misc 10/19/2020 Active Lancets (OneTouch Delica Plus [id number]) misc TEST BLOOD SUGAR 4 TIMES A DAY 08/25/2020 Active Vitamin D High Potency 25 MCG (1000 UT) capsule 2 capsules a day 01/14/2021 Active Acetaminophen Extra Strength 500 MG tablet TAKE 1 TO 2 TABLETS BY MOUTH EVERY MORNING THEN TAKE 1 TABLET BY MOUTH EVERY 8 HOURS NEEDED FOR PAIN OR FOR FEVER 08/26/2021 Active Ascorbic Acid (vitamin C) 500 MG tablet Take 500 mg by mouth 2022 Active fluticasone (FLONASE) 50 MCG/ACT nasal spray USE 1-2 SPRAYS IN EACH NOSTRIL EVERY DAY NEEDED 02/13/2023 Active Docusate Sodium (DSS) 100 MG capsule Take 1 capsule by mouth 2 (two) times a day if needed 02/24/2022 Active gabapentin (NEURONTIN) 100 MG capsule Take 1 capsule by mouth at bed time 06/22/2017 Active traZODone (DESYREL) 100 MG tablet 03/12/2023 Active apixaban (ELIQUIS) 5 MG tablet Take 5 mg by mouth 1 (one) time 1 tab in the morning 1 tab in the evening 03/17/2022 Active predniSONE 5 MG tablet Take 1 tablet (5 mg total) by mouth 1 (one) time each day 30 tablet 11 07/08/2023 Active Empagliflozin (Jardiance) 25 MG tabletIndicatio ns:Proteinuria, not otherwise specified Take 25 mg by mouth 1 (one) time each day in the morning 90 tablet 3 07/12/2023 07/12/19 25 Active ferrous sulfate 325 (65 Fe) MG EC tabletIndicatio ns:Iron deficiency anemia, not otherwise specified Take 1 tablet (325 mg total) by mouth in the morning and 1 tablet (325 mg total) in the evening. Do not crush, chew, or split.. 180 tablet 3 10/01/2023 09/26/19 25 Active mycophenolate (MYFORTIC) 180 MG EC tablet Take 1 tablet (180 mg total) by mouth every morning and evening 60 tablet 11 10/22/2023 Active amLODIPine (Norvasc) 2.5 MG tablet Take 1 tablet (2.5 mg total) by mouth at bed time 30 tablet 11 02/28/2024 02/28/20 25 Active lisinopril 2.5 MG tablet Take 2.5 mg by mouth 1 (one) time each day Active tacrolimus (PROGRAF) 1 MG capsuleIndicati ons:Kidney replaced by transplant Take 3 capsules (3 mg total) by mouth 1 (one) time each day in the morning AND 2 capsules (2 mg total) 1 (one) time each day in the evening. 150 capsule 11 03/11/2024 03/11/20 25 Active Active Problems Problem Noted Date Diagnosed Date Pyuria 03/14/2023 Gastrointestinal hemorrhage 04/19/2022 Chronic iron deficiency anemia secondary to bloo d loss 03/24/2022 Overview (12/21/2023): Last Assessment & Plan: s/p ischemic colitis 02/2022 continue iron supplementation for now order labs and fu with me in 2 weeks. Bacterial urinary infection 03/24/2022 Overview (12/21/2023): Last Assessment & Plan: Resolved with Bactrim Reconsult prn Anemia 03/24/2022 Overview (12/21/2023): Last Assessment & Plan: Significantly improving with iron supplementation, doesn't seem to have recurrent GI bleeding Continue iron supplementation to complete 3 months (next month). Refer to GI to Dr. Cohen, information given to pt to fu with them. Chronic kidney disease stage 3 03/17/2022 Overview (12/21/2023): Last Assessment & Plan: History of renal transplant Creatinine is at baseline, avoid nephrotoxic medications, BUN is slightly elevated Continue patient's tacrolimus and prednisone Mycophenolate was not listed last admission but patient and her family tell me she is taking this twice a day, this has been added to her med list and ordered Last Assessment & Plan: History of renal transplant Creatinine is at baseline, avoid nephrotoxic medications, BUN is slightly elevated Continue patient's tacrolimus and prednisone Mycophenolate was not listed last admission but patient and her family tell me she is taking this twice a day, this has been added to her med list and ordered Last Assessment & Plan: Sp renal transplant, doing well on meds. It seems to be stable sp IVF and UTI rx Continue off lisinopril until BP iis a bit higher Check K prior to next appt w me FU with renal Continue meds for renal transplant. Diabetes mellitus 03/13/2022 Overview (12/21/2023): Last Assessment & Plan: Patient normally takes a home regimen with combination oral agents and insulin. At home uses Humalog 3 times daily, 6 units before meals. Also takes Lantus at bedtime 8 units. In addition she takes Jardiance 25 mg daily. Jardiance held at admission. -Monitor [id number] glucose with meals and nightly, and every 6 hours when n.p.o. -Insulin sliding scale with meals and nightly -Lantus given just 5 units at bedtime -Uptitrate insulin after diet is advanced Last Assessment & Plan: Controlled. A1c is at goal. Continue on Lantus 10 units she will lower to 8 units only if she has persistent blood sugar below 70. Counseled re more frequent low calorie/carb meals. Check fgstk 3x daily Encouraged physical activity as tolerated. FU in 3 months. F/u with roller stainer Type 2 diabetes mellitus without complication Overview (12/21/2023): Last Assessment & Plan: Continue insulin, will be n.p.o. after midnight we will give conservative dose along with sliding scale Renal failure syndrome 03/13/2022 Overview (12/21/2023): Last Assessment & Plan: History of transplant, well-functioning transplant in the right lower quadrant. Immunosuppressants continued, steroids continued. Weight loss 09/19/2021 Osteoporosis 07/18/2021 Essential hypertension 05/11/2020 Kidney transplant status 05/11/2020 Hyperkalemia 05/11/2020 Renal disorder due to type 2 diabetes mellitus 0 05/11/2020 Resolved Problems Problem Noted Date Diagnosed Date Resolved Date Long-term drug therapy 04/20/202104/19 Osteoporosis 05/11/2020 07/12/2021 Hypertensive heart and renal disease with (congestive) heart failure 05/11/2020 07/12/2021 Encounters Date Type Department Care Team Description 03/21/2024 Orders Only [facility] [address] [phone] Bruce Galarza MD Kidney transplant status; Essential hypertension 03/11/2024 2:45 PM EST Office Visit [facility] [address] [phone] Bruce Galarza MD Kidney replaced by transplant 03/04/2024 Orders [facility] [address] [phone] Bruce Galarza MD 02/28/2024 Refill [facility] [address] [phone] Sloane Bonner MA from Last 3 Months Immunizations Name Administration Dates Next Due Hepatitis B 04/04/2022 Influenza Split High Dose Pr eservative Free IM 02/27/2019,02/23/2018,12/21/2017 Influenza, Quadrivalent, With Preservative 01/17 Pfizer SARS-COV-2 12/24/2020,06/07/2020,05/17/19 21 Pneumococcal Conjugate 13-Valent 05/07/2018 Pneumococcal Polysaccharide 03/09/2017 Shingrix 07/15/2018,05/07/2018 Tdap 03/09/2017 Family History Medical History Relation Comments Hypertension Mother Diabetes Sibling sister Relation Status Comments Father Mother Sibling Social History Tobacco Use Types Packs/Day Years Used Date Smoking Tobacco: Never Smokeless Tobacco: Never Tobacco Cessation:Counseling Given: Not Answered Alcohol Use Standard Drinks/Week Comments No 0 (1 standard drink = 0.6 oz pur e alcohol) Comments Unknown Sex and Gender Information Value Date Recorded Sex Assigned at Not on file Legal Sex Female 4:49 PM EST Gender Identity Not on file Sexual Orientation Not on file Last Filed Vital Signs Vital Sign Reading Time Taken Comments Blood Pressure 139/65 03/11/2024 2:34 PM EST Pulse 65 03/11/2024 2:34 PM EST Temperature - - Respiratory Rate 16 12/13/2022 11:32 AM EDT Oxygen Saturation 96% 03/11/2024 2:34 PM EST Inhaled Oxygen Concentration - - Weight 47.9 kg (105 lb 9.6 oz) 03/11/2024 2:34 P M EST Height 144.8 cm (4' 9 ) 08/29/2022 10:15 AM EDT Body Mass Index 22.85 08/29/2022 10:15 AM EDT Plan of Treatment Upcoming Encounters Date Type Department Care Team (Late st Contact Info) Description 06/20/2024 10:45 AM EDT Office Visit [facility] [address] [phone] Bruce Galarza MD [address] [phone] Health Maintenance Due Date Last Done Comments Breast Cancer Screening 1950 Diabetes: Ophthalmology Exam 04/26/2020 Diabetes: Pedal Pulse Checked 04/26/2020 Diabetes: Sensory Foot Exam 04/26/2020 Diabetes: Visual Foot Exam 04/26/2020 Colonoscopy (Post-Transplant Patient) 05/11/2020 Mammogram (Post-Transplant Patient) 05/11/2020 Pelvic Exam (Post-Transplant Patient) 05/11/2020 Diabetes: Hemoglobin A1C 11/15/2023 024, 10/23/2022, 07/11/2022, Additional history exists Influenza Vaccine (#1) 2023 9, 02/23/2018, 12/21/2017, Additional history exists Pneumococcal Vaccine: 65+ Years Completed 05/07/2018, 03/09/2017 Hepatitis B Vaccine Aged Out 04/04/2022 No longe r eligible based on patient's age to complete this topic Procedures Procedure Name Priority Date/Time Associated Diagnosis Comments TACROLIMUS, HIGHLY SENSITIVE, LC/MS/MS Routine 03/04/2024 10:25 AM EST CBC Routine 03/04/2024 10:18 AM EST RENAL FUNCTION PANEL Routine 03/04/2024 10:18 AM EST HEMOGLOBIN A1C Routine 05/31/2022 10:19 AM EST 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) Iron deficiency anemia, not otherwise specified from Last 3 Months or Most Recently Relevant to Health Maintenance Results * (ABNORMAL) Tacrolimus, Highly Sensitive, LC/MS/MS (03/04/2024 10:25 AM EST) Tacrolimus by Immunoassay 3.8(L) 5 - 20 NG/ML [facility] Comment: Tacrolimus Renal transplant patients (C0-trough level*): 0 - 3 months, 10 - 15 ng/mL: >3 - 12 months, 5 - 15 ng/mL: >12 months: 5 - 10 ng/mL (assuming no induction, mTOR inhibitor or IL-2 receptor antibody therapy) *Disclaimer: The target therapeutic ranges given here are a general guide and exact ranges may differ according to therapeutic indication. Please refer appropriate professional body guidance documents and references cited below. Da T, Alfredo C, Torey N, et al Randomized trial of tacrolimus + mycophenolate mofetil or azathioprine versus cyclosporine + mycophenolate mofetil after cadaveric kidney transplantation: Results at three years Transplantation. 2003,75:2048-53. Nehal Y, van Nay ELKE, Lex ELKE, et al Minimization of immunosuppressive therapy after renal transplantation: Results of a randomized controlled trial Am J Transplant. 2005,5:87-95. Musa FG, Helga H, Gilberto ELKE, et al. Comparison of low versus high tacrolimus levels in kidney transplantation: Assessment of efficacy by protocol biopsies Transplantation. 2007,83:411-6. Margarette P, Mila VW, John M, et al Opportunities to optimize tacrolimus therapy in solid organ transplantation: Report of the consensus conference Ther Drug Monit. 2009,31:139-52. Love Leiva, Jeronimo Leiva., Abbie, T.L.H. et al. Higher tacrolimus trough levels and time in the therapeutic range are associated with the risk of acute rejection in the first month after renal transplantation. [facility] Nephrol 2022,24, 131. 03/04/2024 10:2 5 AM EST 03/04/2024 us Bruce Galarza MD LAB BLOOD ORDERABLES Final Re sult [facility] [address] [place] [phone] * CBC (03/04/2024 10:18 AM EST) WBC 6.9 3.4 - 10.8 x10E3/uL [facility] RBC 4.73 3.77 - 5.28 x10E6/uL [facility] Hemoglobin 14.5 11.1 - 15.9 g/dL [facility] Hematocrit 46.0 34.0 - 46.6 % [facility] MCV 97 79 - 97 fL [facility] MCH 30.7 26.6 - 33.0 pg [facility] MCHC 31.5 31.5 - 35.7 g/dL [facility] RDW 14.5 11.7 - 15.4 % [facility] Platelets 237 150 - 450 x10E3/uL [facility] 03/04/2024 10:1 8 AM EST 03/04/2024 us Bruce Galarza MD LAB BLOOD ORDERABLES Final Re sult [facility] [address] [place] [phone] * (ABNORMAL) Renal Function Panel (03/04/2024 10:18 AM EST) Glucose 148(H) 70 - 99 mg/dL [facility] BUN 26 8 - 27 mg/dL [facility] Creatinine 1.06(H) 0.57 - 1.00 mg/dL [facility] eGFR CKD-EPI CR 2020 55(L) >59 mL/min/1.7 3 [facility] BUN/Creatinine Ratio 25 12 - 28 [facility] Sodium 138 134 - 144 mmol/L [facility] Potassium 4.7 3.5 - 5.2 mmol/L [facility] Chloride 101 96 - 106 mmol/L [facility] Bicarbonate (CO2) 21 20 - 29 mmol/L [facility] Calcium 9.5 8.7 - 10.3 mg/dL [facility] Albumin 4.0 3.8 - 4.8 g/dL [facility] Phosphorus 3.3 3.0 - 4.3 mg/dL [facility] 03/04/2024 10:1 8 AM EST 03/04/2024 us Bruce Galarza MD LAB BLOOD ORDERABLES Final Re sult [facility] [address] [place] [phone] * (ABNORMAL) Hemoglobin A1c (05/31/2022 10:19 AM EST) Hemoglobin A1C 6.8(H) (4.0-5.6) % [facility] Comment: MONITORING: In known diabetic patients, hemoglobin A1c targets should be discussed with health care provider. DIAGNOSTIC USE: ??The [place] Diabetes Association (ADA) and the World Health Organization (WHO) recommend the use of HbA1c to diagnose diabetes using a threshold of 6.5%. Patients who have an HbA1c between 5.7% and 6.4% are considered at increased risk for developing diabetes in the future. CAUTION: Falsely low HbA1c results may be observed in patients with hemolytic anemia, homozygous forms of abnormal hemoglobin (e.g. SS, CC, SC), , recent blood loss or hemoglobin F greater than 7%. Fructosamine may be used as an alternate test in these cases. REFERENCE: ADA: Standards of Medical Care in Diabetes 2020, The Journal of Clinical and Applied Research and Education Volume 43, Supplement 1 Testing performed or reported by [facility], a Service of [facility], [address] [place] [id number] Carlene Prasad MD, Paper Control Clerk [facility]# [id number] Blood (Blood, Venous) 05/31/2022 10:19 AM EST 05/31/2022 10:20 AM EST us Olivia Trujillo MD LAB BLOOD ORDERABLES Final Resu lt [facility] from Last 3 Months or Most Recently Relevant to Health Maintenance Insurance [employer] ([id number]) ALEJANDRA ALVAREZ [id number] [place] [employer] ([id number]) Care Teams Manager Transition Relationship Specialty Start Date End Date Ana María Bryan MD [address] [place] [phone] PCP - General 04/05/20
--- OUTSIDE RECORDS SUMMARY | 2024-04-23 16:19 | XMS_ITS | Encounter Summary ---
Author Organization [facility] Address [address] [phone] Phone Care Team Providers Care Vice President Global Digital Marketing Name Role Phone Ana María Bryan MD Primary Care Provider Encounter Details Date Type Department Care Team (Late Contact Info) Description 03/21/2024 Orders Only [facility] [address] [place] [phone] Bruce Galarza MD [facility] [phone] Kidney transplant status; Essential hypertension Social History Tobacco Use Types Packs/Day Years Used Date Smoking Tobacco: Never Smokeless Tobacco: Never Alcohol Use Standard Drinks/Week Comments No 0 (1 standard drink = 0.6 oz pur e alcohol) Comments Unknown Sex and Gender Information Value Date Recorded Sex Assigned at Not on file Legal Sex Female 4:49 PM EST Gender Identity Not on file Sexual Orientation Not on file documented as of this encounter Plan of Treatment Upcoming Encounters Date Type Department Care Team (Late st Contact Info) Description 06/20/2024 10:45 AM EDT Office Visit [facility] [address] [phone] Bruce Galarza MD [address] [phone] documented as of this encounter Procedures Procedure Name Priority Date/Time Associated Diagnosis Comments CBC Routine 03/04/2024 10:18 AM EST RENAL FUNCTION PANEL Routine 03/04/2024 10:18 AM EST documented in this encounter Results * CBC (03/04/2024 10:18 AM EST) WBC 6.9 3.4 - 10.8 x10E3/uL [facility] RBC 4.73 3.77 - 5.28 x10E6/uL [facility] Hemoglobin 14.5 11.1 - 15.9 g/dL [facility] Hematocrit 46.0 34.0 - 46.6 % [facility] MCV 97 79 - 97 fL [facility] MCH 30.7 26.6 - 33.0 pg [facility] MCHC 31.5 31.5 - 35.7 g/dL [facility] RDW 14.5 11.7 - 15.4 % [facility] Platelets 237 150 - 450 x10E3/uL [facility] 03/04/2024 10:1 8 AM EST 03/04/2024 us Bruce Galarza MD LAB BLOOD ORDERABLES Final Re sult [facility] [address] [place] [phone] * (ABNORMAL) Renal Function Panel (03/04/2024 10:18 AM EST) Glucose 148(H) 70 - 99 mg/dL [facility] BUN 26 8 - 27 mg/dL [facility] Creatinine 1.06(H) 0.57 - 1.00 mg/dL [facility] eGFR CKD-EPI CR 2020 55(L) >59 mL/min/1.7 3 [facility] BUN/Creatinine Ratio 25 12 - 28 [facility] Sodium 138 134 - 144 mmol/L [facility] Potassium 4.7 3.5 - 5.2 mmol/L [facility] Chloride 101 96 - 106 mmol/L [facility] Bicarbonate (CO2) 21 20 - 29 mmol/L [facility] Calcium 9.5 8.7 - 10.3 mg/dL [facility] Albumin 4.0 3.8 - 4.8 g/dL [facility] Phosphorus 3.3 3.0 - 4.3 mg/dL [facility] 03/04/2024 10:1 8 AM EST 03/04/2024 us Bruce Galarza MD LAB BLOOD ORDERABLES Final Re sult [facility] [address] [place] [phone] documented in this encounter Visit Diagnoses Diagnosis Kidney transplant status Essential hypertension documented in this encounter Care Teams Vice President Global Digital Marketing Relationship Specialty Start Date End Date Ana María Bryan MD [address] [place] [phone] PCP - General 04/05/20 documented as of this encounter
--- OUTSIDE RECORDS SUMMARY | 2024-04-23 16:19 | XMS_ITS | Clinical Summary ---
Author Organization [employer] Address [address] [facility] [address] [place] [address] Care Team Providers Care Plate Shear Operator Name Role Phone Ana María Bryan MD Primary Care Provider + Allergies Active Allergy Reactions Criticality Noted Date Comments Diphenhydramine Unknown 08/18/2016 Other reaction(s): Other (see comments) feeling of panic Medications Acetaminophen Extra Strength 500 MG tablet TAKE 1 TO 2 TABLETS BY MOUTH EVERY MORNING THEN TAKE 1 TABLET BY MOUTH EVERY 8 HOURS NEEDED FOR PAIN OR FOR FEVER Active Aspirin Low Dose 81 MG EC tablet TAKE 1 TABLET BY MOUTH EVERY MORNING Active Blood Glucose Monitoring Suppl (ONE TOUCH ULTRA 2) w/Device kit USE DIRECTED Active Vitamin D High Potency 25 MCG (1000 UT) capsule TAKE 2 CAPSULES BY MOUTH ONCE DAILY IN THE MORNING Active denosumab (Prolia) 60 MG/ML solution prefilled syringe inject 1 milliliter by subcutaneous route every 6 months in the upper arm, upper thigh or abdomen Active Jardiance 25 MG TAKE 1 TABLET BY MOUTH EVERY MORNING Active Lantus SoloStar 100 UNIT/ML pen INJECT 10 UNITS SUBCUTANEOUSLY EVERY EVENING Active HumaLOG KWIKPEN 100 UNIT/ML injection INJECT 2-5 UNITS SUBCUTANEOUSLY THREE TIMES DAILY BEFORE MEALS DIRECTED Active Lancets (OneTouch Delica Plus [id number]) [facility] [place] B[place] 4 TIMES A DAY 12/02/2 022 Active mycophenolate (Myfortic) 180 MG EC tablet TAKE 1 TABLET BY MOUTH TWICE DAILY IN THE MORNING AND IN THE EVENING Active Veltassa 8.4 g pack MIX 1 PACKAGE IN WATER AND TAKE DAILY DIRECTED Active predniSONE (Deltasone) 5 MG tablet TAKE 1 TABLET BY MOUTH EVERY MORNING Active tacrolimus (Prograf) 1 MG capsule TAKE 2 CAPSULES BY MOUTH TWICE DAILY IN THE MORNING AND EVENING Active polyethylene glycol, PEG, 3350 (MiraLax Mix-In [place]) 17 g packetIndications: Slow transit constipation Take 1 packet by mouth every day mixed with 8 oz water, juice, soda, coffee, or tea. 30 packet 023 Active glucose (Glutose) 40 % gel oral gelIndications:Typ e 2 diabetes mellitus with stage 3 chronic kidney disease, with long-term current use of insulin, unspecified whether stage 3a or 3b CKD (CMS/[facility]) TAKE 1/2 TUBE BY MOUTH NEEDED HYPOGLYCEMIA DIRECTED 30 g 5 023 Active lisinopril 2.5 MG tablet TAKE 1 TABLET BY MOUTH EVERY MORNING 90 tablet 1 023 Active fluticasone (Flonase) 50 MCG/ACT nasal sprayIndications:S easonal allergic rhinitis due to other allergic trigger USE 1-2 SPRAYS IN EACH NOSTRIL EVERY DAY NEEDED 48 g 023 Active OneTouch Ultra Test test stripIndications:T ype 2 diabetes mellitus with stage 3 chronic kidney disease, with long-term current use of insulin, unspecified whether stage 3a or 3b CKD ([facility]/HCC) TEST BLOOD SUGAR FOUR TIMES DAILY 100 strip 11 024 Active Molnupiravir 200 MG capsule Take 800 mg by mouth 2 times daily. Take 4 tabs (800 mg) po bid for 5 days. Upper Sorbian label 40 capsule Active gabapentin (Neurontin) 100 MG capsule TAKE 1 CAPSULE BY MOUTH AT BEDTIME 90 capsule 1 024 Active pantoprazole (ProtoNix) 40 MG EC tabletIndications: Upper gastrointestinal bleeding TAKE 1 TABLET BY MOUTH TWICE DAILY IN THE MORNING AND IN THE EVENING 180 tablet 024 Active pantoprazole (ProtoNix) 40 MG EC tabletIndications: Upper gastrointestinal bleeding Take 1 tablet (40 mg) by mouth before breakfast. Do not crush, chew, or split. 180 tablet Active docusate sodium (Colace) 100 MG capsule TAKE 1 CAPSULE BY MOUTH TWICE DAILY NEEDED 180 capsule 1 Active atorvastatin (Lipitor) 80 MG tabletIndications: Hyperlipidemia, unspecified hyperlipidemia type TAKE 1 TABLET BY MOUTH EVERY EVENING 90 tablet 1 Active Ascorbic Acid (vitamin C) 500 MG tabletIndications: Iron deficiency anemia due to chronic blood loss TAKE 1 TABLET BY MOUTH EVERY MORNING 90 tablet 1 024 Active Pentips Generic Pen Graettinger 32G X 4 MM misc USE FOUR TIMES DAILY DIRECTED 100 each 5 Active traZODone (Desyrel) 100 MG tablet TAKE 1 TABLET BY MOUTH TWICE DAILY IN THE MORNING AND AT BEDTIME AFTER MEALS 60 tablet 3 Active melatonin 5 MG tabletIndications: Primary insomnia TAKE 1 TABLET BY MOUTH AT BEDTIME 90 tablet 025 Active traZODone (Desyrel) 100 MG tablet TAKE 1 TABLET BY MOUTH TWICE DAILY IN THE MORNING AND AT BEDTIME AFTER MEALS 60 tablet 3 024 04/23 Discontinued melatonin 5 MG tabletIndications: Primary insomnia TAKE 1 TABLET BY MOUTH AT BEDTIME 90 tablet 024 04/23 Discontinued Active Problems Problem Noted Date Diagnosed Date COVID-19 12/04/2023 Assessment & Plan (12/04/2023 4:58 PM EDT): -COVID-19 positive, symptoms mild to moderate -no evidence of respiratory distress -currently day 4 of symptoms. Pt is on Tacrolimus which has significant reaction with Paxlovid and IV remdisivir. After discussion with nephrology and ID, will prescribe molnupiravir. Spoke with multiple pharmacies in the area -supportive care with fluids, rest and OTC analgesics -isolation discussed -seek medical attention for worsening symptoms Postprandial abdominal pain in left upper quadra nt 11/06/2022 Diarrhea 10/23/2022 Assessment & Plan (10/23/2022 5:09 PM EDT): Most likely food intolerance, she has history of ischemic colitis. counseled regarding propr hydartion, avoid complex carbohydrates and proteinloaded meals order labs GI note appreciated, next colonoscopy on 2027 Epigastric pain 05/18/2022 Assessment & Plan (05/18/2022 11:04 AM EST): Most likely related to iron pills vs gastroparesis. r/o PUD. Refer to GI, [facility] does not accept patient's insurance. Will refer to [facility]. Counseled to drink herbal tea prior to taking medications in the morning. FU with me in 2 months. Iron deficiency anemia due to chronic blood loss 03/24/2022 Assessment & Plan (10/23/2022 5:08 PM EDT): s/p ischemic colitis 02/2022 continue iron supplementation for now order labs and fu with me in 2 weeks. Assessment & Plan (05/18/2022 11:03 AM EST): Significantly improving, last hemoglobin 05/12/22 was 11. Continue iron + vitamin C once per day to complete 3 months (May 2022) Assessment & Plan (03/24/2022 2:54 PM EST): Worsening, likely related to persistent bleeding, on the setting of anticoagulation. Patient sent to ED, see HPI above. Fu w me upon discharge. Ischemic colitis 03/24/2022 Assessment & Plan (08/15/2023 1:01 PM EDT): -resolved, she does not need further f/u by Gral surgery - colonoscopy due 2024 Assessment & Plan (08/04/2022 12:13 PM EDT): Seems to have completely recovered, hemoglobin is back to normal and she does not have abdominal pain. Appointemnt with GI on September 02 discussed with pt regarding warning signs of GI bleeding, diet as tolerated. Assessment & Plan (07/11/2022 10:07 AM EDT): Resolved, tolerated PO properly and hemoglobin is stable FU with GI for now Attempt tighter control of htn and DM Assessment & Plan (05/18/2022 11:01 AM EST): Improved, no evidence of GI bleeding at this time and pt tolerates PO. s/p colonoscopy 03/13/22 with TAs. Reconsult PRN. Assessment & Plan (03/24/2022 2:50 PM EST): It seems to be resolved, patient's abd pain is improved and tolerates PO. Will discuss with cardiology re need for further fu once patient is released form ED. Continue Off BP meds, encouraged PO fluids Hyperplastic colonic polyp 03/24/2022 Overview (08/15/2023): Colonoscopy at [facility] on 03/15/22 (admitted due to rectal bleeding/ischemic colitis) Assessment & Plan (03/24/2022 2:50 PM EST): Resected. FU colonoscopy in 10y UTI (urinary tract infection), bacterial 022 Assessment & Plan (03/24/2022 2:52 PM EST): Resolved with Bactrim Reconsult prn Deep vein thrombosis (DVT) o f brachial vein of right upper extremity 03/24/2022 Overview (12/04/2023): On Eliquis 5mg bid. Patient sent to ED today due to GIB/anemia. Will fu upon discharge to determine if she's to continue on anticoagulation. Last Assessment & Plan: Recently diagnosed with right upper extremity DVT, brachial. Placed on Eliquis and also takes aspirin and Plavix which were given to her post transplant. We will hold Eliquis as above defer to GI Patient has not taken Eliquis since yesterday morning Assessment & Plan (08/04/2022 12:14 PM EDT): Seems to be doing fine and she is ambulatory now. Continue eliquis at least until august and FU with meter maintenance person. We discussed avoid prolonged rest, ambulation with cane if needed and warning signs of bleeding including black stools, abdominal pain, gum bleeding. Assessment & Plan (05/18/2022 11:02 AM EST): Currently on Eliquis 5 mg BID, tolerates well/no bleeding. Complete anticoagulation until June 2022. FU with hematology to complete hypercoagulability workup. Assessment & Plan (04/13/2022 10:56 AM EST): Continue Eliquis and FU in 3 months, consider DC'ing meds. -Hematology referral pending. Symptomatic anemia 03/24/2022 Assessment & Plan (07/11/2022 10:08 AM EDT): Significantly improving with iron supplementation, doesn't seem to have recurrent GI bleeding Continue iron supplementation to complete 3 months (next month). Refer to GI to Dr. Cohen, information given to pt to fu with them. Assessment & Plan (04/13/2022 10:56 AM EST): Hemoglobin has been stable s/p RBC transfusion 3 weeks ago. -Restart iron supplementation once per day with vitamin C. -FU hemoglobin in 4-5 weeks with me. -Needs to follow up with GI for further evaluation for intestinal ischemia. Assessment & Plan (04/11/2022 3:58 PM EST): -Check labs -Difficulty given recent GI bleeding as well as DVT -Referral to Heme/Onc for further assistance with management -Referral to GI for follow up -POC Hbg today 9.4, which is improved/stable compared to post transfusion in ED -May restart aspirin -Reviewed ED precautions Follow up with PCP in 3 weeks, sooner as needed. Acute thoracic back pain 03/17/2022 Chronic kidney disease (CKD) stage G3a/A2, moderately decreased glomerular filtration rate (GFR) between 45-59 mL/min/1.73 square meter and albuminuria creatinine ratio between 30-299 mg/g 03/17/2022 Overview (12/04/2023): Last Assessment & Plan: History of renal transplant Creatinine is at baseline, avoid nephrotoxic medications, BUN is slightly elevated Continue patient's tacrolimus and prednisone Mycophenolate was not listed last admission but patient and her family tell me she is taking this twice a day, this has been added to her med list and ordered Assessment & Plan (03/24/2022 2:52 PM EST): Sp renal transplant, doing well on meds. It seems to be stable sp IVF and UTI rx Continue off lisinopril until BP iis a bit higher Check K prior to next appt w me FU with renal Continue meds for renal transplant. Foot pain 03/17/2022 Multiple nodules of lung 03/17/2022 Neck pain 03/17/2022 Tubular adenoma of colon 03/17/2022 Gastrointestinal hemorrhage 03/17/2022 Diabetes mellitus 03/13/2022 Overview (03/17/2022): Last Assessment & Plan: Patient normally takes a home regimen with combination oral agents and insulin. At home uses Humalog 3 times daily, 6 units before meals. Also takes Lantus at bedtime 8 units. In addition she takes Jardiance 25 mg daily. Jardiance held at admission. -Monitor rgmns-lb-dghd glucose with meals and nightly, and every 6 hours when n.p.o. -Insulin sliding scale with meals and nightly -Lantus given just 5 units at bedtime -Uptitrate insulin after diet is advanced Assessment & Plan (08/15/2023 11:55 AM EDT): Controlled. A1c is at goal. Continue on Lantus 10 units she will lower to 8 units only if she has persistent blood sugar below 70. Counseled re more frequent low calorie/carb meals. Check fgstk 3x daily Encouraged physical activity as tolerated. FU in 3 months. F/u with agricultural researcher Assessment & Plan (10/23/2022 5:09 PM EDT): A1C slightly high, will fu with labs in 2 weeks. Assessment & Plan (08/04/2022 12:15 PM EDT): It seems to be slowly improving, I will not make any medication changes at this time encouraged pt to have small in fraction low-calorie meals continue lantus 10 units + jardiance 25 + humalog BID AC meals and FU with me in 4 weeks. Assessment & Plan (04/13/2022 10:51 AM EST): A1C is at goal. -She has follow up with [employer] next month. -Continue humalog sliding scale + jardiance 25 mg + lantus 10 units qhs -influenza and Covid iz are up to date. High cholesterol 03/13/2022 Neuropathy 03/13/2022 Overview (03/17/2022): Last Assessment & Plan: Gabapentin continued nightly. 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 Pelletier for a prescription for CGM receptors Prescription for DM shoes Assessment & Plan (03/24/2022 2:53 PM EST): BS seems to have stabilized. Continue Jardiance and Humalog tid ac meals FU with endcorinology And with me in 2m Essential hypertension 05/11/2020 Overview (03/17/2022): Last Assessment & Plan: Patient relatively hypotensive, with soft blood pressures prior to endoscopy. -Antihypertensives held including carvedilol, amlodipine and lisinopril. -Lisinopril also held due to hyperkalemia. -Monitor vital signs closely per unit protocol Assessment & Plan (07/11/2022 10:06 AM EDT): Overall uncontrolled. 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 Start Valtasa Counseled re low salt diet/increase moderate physical activity. Check home BP BIW and prn CP/TRAVIS/TALAMANTES Non smoking patient. Assessment & Plan (04/13/2022 10:52 AM EST): BP is at goal. -Continue off Lisinopril for now and fu in 1 month. -Encouraged to increase physical activity and limit sodium intake. Kidney transplant status 05/11/2020 Overview (12/04/2023): Last Assessment & Plan: Patient takes tacrolimus and mycophenolate, confirm these doses with me and these meds will continue She also states that she was put on Plavix at the time of her transplant, she states she has never had an [place]/stents or stroke and has never had any type of vascular procedures, she does have a left upper extremity shunt I will hold aspirin and Plavix for the present time, defer to GI when to restart Cough 04/29/2018 Primary insomnia 12/21/2017 Osteoporosis 09/21/2017 Backache 07/31/2017 Hyperkalemia 07/06/2017 Overview (12/04/2023): Last Assessment & Plan: Potassium 6.0 on arrival. ED management included insulin and IV fluids, with subsequent potassium down to 4.9 prior to admission. Lisinopril discontinued. Since 03/14, hyperkalemia resolved. Potassium now stable 4.5-4.6. Will monitor closely with Bactrim use. Herpes labialis 03/09/2017 Herpesvirus infection 02/08/2017 Encounters Date Type Department Care Team Description 04/23/2024 Refill [facility] [address] [place] [address] Ana María Bryan MD Primary insomnia 04/02/2024 Orders Only GENERIC EXTERNAL DATA DEPARTMENT Provider, Generic External Data 02/18/2024 Refill [facility] [address] [place] [address] Ana María Bryan MD 02/14/2024 Refill [facility] [address] [place] [address] Dary Nuno MD Hyperlipidemia, unspecified hyperlipidemia type; Iron deficiency anemia due to chronic blood loss 02/01/2024 Orders Only GENERIC EXTERNAL DATA DEPARTMENT Provider, Generic External Data 01/31/2024 Refill [facility] [address] [place] [address] Dary Nuno MD Primary insomnia from Last 3 Months Immunizations Name Administration Dates Next Due Hep B, adult 04/04/2022 Influenza High-dose Quadriva lent Preservative Free 12/15/2022,12/23/2021,01/28/2021,02/02 Influenza injectable quadriv alent IIV4 with preservative 01/17/2017 Influenza, High Dose Seasona l, Preservative Free 02/27/2019,02/23/2018,12/21/2017 Pfizer Covid-19 Vaccine 12+ 12/29/2022,1 ,06/07/2020,05/17 Pfizer Covid-19 Vaccine 12+ Bivalent 01/03/2022 Pfizer Covid-19 Vaccine 12+ ingrid-sucrose (Diaz Cap) 07/07/2021 Pneumococcal Conjugate PCV 13 05/07/2018 Pneumococcal Polysaccharide PPSV23 03/09/2017 Tdap 03/09/2017 Zoster, Recombinant 07/15/2018,05/07/2018 Social History Tobacco Use Types Packs/Day Years Used Date Smoking Tobacco: Never Passive Smoke Exposure: Never Smokeless Tobacco: Never Tobacco Cessation:Counseling Given: Not Answered Alcohol Use Standard Drinks/Week Comments Never 0 (1 standard drink = 0.6 oz pur e alcohol) Depression Answer Date Recorded Patient Health Questionnaire-9 Score 1 04/13/2022 Housing Stability Answer Date Recorded What is your housing situation today? I have dominick wilkerson 08/06/[address] you li ve. Do you have problems with any of the following? None of the above 08/06/2023 Food Insecurity Answer Date Recorded Within the past 12 months, y ou worried that your food would run out before you got money to buy more: Never True 08/06/2023 Within the past 12 months,th e food you bought just didn't last and you didn't have enough money to get more: Never True Transportation Answer Date Recorded In the past 12 months, has l ack of transportation kept you from medical appts, meetings, work or from getting things needed for daily living? No 08/06/2023 Utilities Answer Date Recorded In the past 12 months, has t he electric, gas, oil or water company threatened to shut off services in your home? No 08/06/2023 Depression Answer Date Recorded Patient Health Questionnaire-2 Score 0 08/15/2023 Comments No Sex and Gender Information Value Date Recorded Sex Assigned at Female 01/23/2022 10:31 AM EDT Legal Sex Female 10:31 AM EDT Gender Identity Female 01/23/2022 10:31 AM EDT Sexual Orientation Straight 05/24/2022 11 :08 AM EST Last Filed Vital Signs Vital Sign Reading Time Taken Comments Blood Pressure 164/74 01/12/2024 11:02 AM EDT Pulse 79 01/12/2024 11:02 AM EDT Temperature 36.4 ??C (97.6 ??F) 01/12/2024 11:02 AM E DT Respiratory Rate 19 01/12/2024 11:02 AM EDT Oxygen Saturation 96% 01/10/2024 9:56 AM EDT Inhaled Oxygen Concentration - - Weight 47.9 kg (105 lb 8 oz) 01/12/2024 11:02 AM EDT Height 144.8 cm (4' 9 ) 01/12/2024 11:02 AM EDT Body Mass Index 22.83 01/12/2024 11:02 AM EDT Plan of Treatment Health Maintenance Due Date Last Done Comments CT Colonography 1949 FIT DNA/Cologuard 1949 FIT 1949 FOBT 1950 Sigmoidoscopy 1949 Alcohol/Substance Use Screening 1961 Hepatitis C Screening 06/28/1967 RSV Patients and Patients Aged 60 years or older (1 - Risk 60-74 years 1-dose series) 2009 Hepatitis B Vaccines (2 of 3 - 19+ 3-dose series) 05/02/2022 04/04/2022 Eye Exam 06/23/2022 06/23/2021 Colonoscopy 09/15/2022 09/16/2019 Colorectal Cancer Screening 09/15/2022 COVID-19 Vaccine ( season) 2023 12/29/2022, 01/03/2022, 07/07/2021, Additional history exists Influenza Vaccine (#1) 2023 3, 12/23/2021, 01/28/2021, Additional history exists Diabetes: Hemoglobin A1C 07/01/2024 025, 08/15/2023, 10/23/2022, Additional history exists SDOH Screening 08/05/2024 08/06/2023 Depression Screening 08/14/2024 08/15/2023, 04/13/19 23 Diabetes: Foot Exam 08/14/2024 08/15/2023, 08/15/2023, 08/15/2023, Additional history exists Mammogram 08/22/2024 08/23/2023, 01/24, 02/12/2020, Additional history exists Lipid Panel 12/31/2024 01/01/2024, 10/24/2022 Tobacco Screening 01/09/2025 01/10/2024 DTaP/Tdap/Td Vaccines (2 - Td or Tdap) 03/09/2027 03/09/2017 Pneumococcal Vaccine: 50+ Years Completed 05/07/2018, 03/09/2017 Zoster Vaccines Completed 07/15/2018, 05/07/2018 HIB Vaccines Aged Out No longer eligi ble based on patient's age to complete this topic HPV Vaccines Aged Out No longer eligi ble based on patient's age to complete this topic Hepatitis A Vaccines Aged Out No long er eligible based on patient's age to complete this topic IPV Vaccines Aged Out No longer eligi ble based on patient's age to complete this topic Meningococcal Vaccine Aged Out No johann adan eligible based on patient's age to complete this topic RSV under 20 months Aged Out No longe r eligible based on patient's age to complete this topic Rotavirus Vaccines Aged Out No longer eligible based on patient's age to complete this topic Procedures Procedure Name Priority Date/Time Associated Diagnosis Comments VITAMIN D,25-OH,TOTAL,IA Routine 04/02/2024 11:35 AM EST PTH, INTACT WITHOUT CALCIUM Routine 04/02/2024 11:35 AM EST BASIC METABOLIC PANEL Routine 04/02/2024 11:35 AM EST HEMOGLOBIN A1C Routine 04/02/2024 11:35 AM EST GLUCOSE, WHOLE BLOOD Routine 02/01/2024 10:57 AM EST LIPID PANEL WITH REFLEX TO DIRECT LDL Routine 01/01/2024 10:37 AM EDT Type 2 diabetes mellitus with stage 3 chronic kidney disease, with long-term current use of insulin, unspecified whether stage 3a or 3b CKD (CMS/HCC) BI MAMMOGRAM SCREENING TOMOSYNTHESIS BILATERAL Routine 08/23/2023 11:08 AM EDT Screening mammogram for breast cancer HM COLONOSCOPY Routine 09/16/2019 3:11 PM EDT from Last 3 Months or Most Recently Relevant to Health Maintenance Results * Vitamin D, 25-Hydroxy, Total, Immunoassay (04/02/2024 11:35 AM EST) Vitamin D 25-OH Total 36.8 >30 ng/mL [facility] Comment:Health Based Referen ce Values*< 20 ng/mL Bnvtgodih80-10 ng/mL Insufficient> 30 ng/mL Sufficient*Carlos Manuel BERRY. N Engl J Med. 2007;357:266-280Care must be taken in interpreting Vitamin D results fromdifferent laboratories and methodologies. Published datademonstrated that results from patients undergoinghemodialysis may show a negative bias when tested withvarious automated 25-OH vitamin D assays when compared toLC-MS/MS.When testing samples from patients whose predominant form ofVitamin D is Vitamin D2, such as patients receiving VitaminD2 supplementation, results that are subtherapeutic shouldbe confirmed with another method such as LC-MS/MS. 04/02/2024 11:3 5 AM EST 04/02/2024 11:35 AM EST us Generic External Data Provider LAB BLOOD ORDERAB LES Final Result Performing Organization Address [facility] Co de Phone Number [facility] [address] [place] [phone] * (ABNORMAL) PTH, Intact Without Calcium (04/02/2024 11:35 AM EST) Parathyroid Hormone, Intact 137.5(H) 8.7 - 77.1 pg/mL [facility] 04/02/2024 11:3 5 AM EST 04/02/2024 11:35 AM EST us Generic External Data Provider LAB BLOOD ORDERAB LES Final Result Performing Organization Address [facility] Number [facility] [address] [place] [phone] * (ABNORMAL) Hemoglobin A1c (04/02/2024 11:35 AM EST) Hemoglobin A1c 7.5(H) <6.0 % [facility] Comment:Hemoglobin A1C Refer ence Range Adults: 4.8 - 6.0 % Non diabetic: < 6.0 % Goal: < 7.0 %Additional Action Suggested: > 8.0 %Note: Hemoglobin A1c results are invalid for patients with abnormal amounts of HbF. Blood transfusions may impact the HbA1c concentration in the patient sample. Estimated Average Glucose 169 mg/dL [facility] Comment:eAG = Estimated ave rage glucose which is %A1C expressed asaverage glucose, using the formula of the X0O-FiwscyyEbdmjdn Glucose study (ADAG), Diabetes Care, Vol.31,#8,2007 04/02/2024 11:3 5 AM EST 04/02/2024 11:35 AM EST Generic External Data Provider LAB BLOOD ORDERAB LES Final Result Performing Organization Address [facility] Co de Phone Number [facility] [address] [place] [phone] * (ABNORMAL) Basic Metabolic Panel (04/02/2024 11:35 AM EST) Sodium 140 135 - 145 mmol/L [facility] Potassium 4.7 3.3 - 5.1 mmol/L [facility] Chloride 105 96 - 108 mmol/L [facility] [facility] Carbon Dioxide 28 22 - 29 mmol/L [facility] Anion Gap 12 12 - 20 [facility] Urea Nitrogen (BUN) 27(H) 9 - 16 mg/dL [facility] Creatinine, Serum 0.96 0.5 - 1.4 mg/dL [facility] Estimated Glomerular Filt Rate 57 [facility] Comment:Chronic Kidney Disea se: Estimated GFR < 60 mL/min/1.14o3Twuztz Kidney Disease: Estimated GFR < 15 mL/min/1.73m2 Glucose 119(H) 60 - 115 mg/dL [facility] Calcium 9.5 8.4 - 10.2 mg/dL [facility] 04/02/2024 11:3 5 AM EST 04/02/2024 11:35 AM EST us Generic External Data Provider LAB BLOOD ORDERAB LES Final Result Performing Organization Address [facility] Co de Phone Number [facility] [address] [place] [phone] * (ABNORMAL) Glucose, Whole Blood (02/01/2024 10:57 AM EST) Glucose, Whole Blood 140(H) 60 - 115 mg/dL [facility] Comment:METER #: [id number] Testing performed in the Endocrinology Department [address] , [address], [facility]. 02/01/2024 10:5 7 AM EST 02/01/2024 11:00 AM EST us Generic External Data Provider LAB BLOOD ORDERAB LES Final Result [facility] [address] [place] [address] [phone] * Lipid Panel with Reflex to Direct LDL (01/01/2024 10:37 AM EDT) Triglycerides 97 <150 mg/dL [facility] Comment:Desirable Triglyceri de: less than 150 mg/dLBorderline High Triglyceride 150-199 mg/dLHigh Triglyceride: 200-499 mg/dLVery High Triglyceride: greater than or equal to 5OO mg/dL Cholesterol 138 <200 mg/dL [facility] Comment:Desirable Cholestero l: less than 200 mg/dLBorderline High Cholesterol: 200-239 mg/dLHigh Cholesterol: greater than 239 mg/dL LDL Cholesterol Calculated 61 <100 mg/dL [facility] Comment:Desirable LDL: less than 100 mg/dLNear Optimal/Above Optimal LDL: 110- 129 mg/dLBorderline High LDL: 130-159 mg/dLHigh LDL: 160-189 mg/dLVery High LDL: greater than or equal to 190 mg/dL HDL Cholesterol 58 >40 mg/dL [facility] Comment:Desirable HDL: great er than 40 mg/dL Note: This HDL assay may give artificially low results in patients with liver disease. Blood 01/01/2024 10:3 7 AM EDT 01/01/2024 11:26 AM EDT Ana María Bryan MD LAB BLOOD ORDERABLES Fin al Result [facility] [address] [place] [address] [phone] * BI Mammogram Screening Tomosynthesis Bilateral (08/23/2023 11:08 AM EDT) Anatomical Region Laterality Modality Breast Bilateral Mammography 08/23/2023 11:0 8 AM EDT Narrative 09/17/2023 3:58 AM EDT ? [facility] ? [address] ?[place] [address] ? Mammography Report ? Signed ? Patient: Jose Gallegos,Sofiya N ?MR#: [id number] ?? [id number] ? : 1950 ?Acct:[id number] ? Age/Sex: 73 / F ?ADM Date: 08/23/23 ? Loc: HO.MAMMO ? Attending Dr: Ana María Bryan MD ? Ordering Physician: Ana María Bryan MD ?Results: 2Be ?? nign Findings ? Date of Service: 08/23/23 ?Follow Up: 1 Year From Orig ?? inal Mammogram ? Procedure(s): MM tomosynthesis screening BI ?? Accession Number(s): [id number] ? cc: Ana María Bryan MD ? EXAMINATION: ?? MM SCREENING DIGITAL BREAST TOMOSYNTHESIS, BILATERAL ? CLINICAL INFORMATION: ? Screening. Asymptomatic. ? COMPARISON: ?? Mammography: This study is compared with prior exams dating back to ?? 2020. ? TECHNIQUE: ?? Digital breast tomosynthesis is performed in both the craniocaudal and ?? mediolateral oblique views along with computer-aided detection (CAD). ?? Synthesized 2D images are generated from the tomosynthesis. ? FINDINGS: ?? There are scattered areas of fibroglandular density (ACR BI-RADS breast ?? composition Category b). ? There are no significant masses, abnormal calcifications, or other ?? abnormalities. ? There are bilateral, benign calcifications. ? MM/MM tomosynthesis screening BI ?? IMPRESSION: ?? No mammographic evidence of malignancy. ? ASSESSMENT: ? BI-RADS BI-RADS 2 - Benign Findings ? RECOMMENDATION: ?? Routine annual mammography screening. ? 1 year F/U ? This examination should not preclude the clinical evaluation of a ?? suspicious palpable abnormality. ? This patient's information was entered into a reminder system with a ?? target due date for their next mammogram. ? Dictated By: ?Jerrica Noyola MD ? Signed By: ?<Electronically signed by Jerrica Noyola MD in OV> ? 09/17/23 0354 ? DD/ 1108 ? TD/TT: ? Plastic Surgery Coordinator: ? Procedure Note Bassemtrealfonsodevon, Image - 09/17/2023 [facility] [address] [place] [address] Mammography Report Signed Patient: Sofiya Julian NMR#: [id number] : 1950Acct:[id number] Age/Sex: 73 / FADM Date: 08/23/23 Loc: HO.MAMMO Attending Dr: Ana María Bryan MD Ordering Physician: Ana María Bryan MDResults: 2Be nign Findings Date of Service: 08/23/23Follow Up: 1 Year From Orig inal Mammogram Procedure(s): MM tomosynthesis screening BI Accession Number(s): [id number] cc: Ana María Bryan MD EXAMINATION: MM SCREENING DIGITAL BREAST TOMOSYNTHESIS, BILATERAL CLINICAL INFORMATION: Screening. Asymptomatic. COMPARISON: Mammography: This study is compared with prior exams dating back to 2019. TECHNIQUE: Digital breast tomosynthesis is performed in both the craniocaudal and mediolateral oblique views along with computer-aided detection (CAD). Synthesized 2D images are generated from the tomosynthesis. FINDINGS: There are scattered areas of fibroglandular density (ACR BI-RADS breast composition Category b). There are no significant masses, abnormal calcifications, or other abnormalities. There are bilateral, benign calcifications. MM/MM tomosynthesis screening BI IMPRESSION: No mammographic evidence of malignancy. ASSESSMENT: BI-RADS BI-RADS 2 - Benign Findings RECOMMENDATION: Routine annual mammography screening. 1 year F/U This examination should not preclude the clinical evaluation of a suspicious palpable abnormality. This patient's information was entered into a reminder system with a target due date for their next mammogram. Dictated By: Jerrica Noyola MD Signed By: <Electronically signed by Jerrica Noyola MD in OV> 09/17/23 0354 DD/ 1108 TD/TT: Plastic Surgery Coordinator: Ana María Bryan MD IMG BI PROCEDURES Final Result * Hm Colonoscopy (09/16/2019 3:11 PM EDT) Colonoscopy Normal Normal Narrative Bea Mix - 09/16/2019 3:11 PM EDT Recommended 3 year follow up Historical Provider HEALTH MAINTENANCE Edited Result - Final from Last 3 Months or Most Recently Relevant to Health Maintenance Insurance [facility] Care Teams Plate Shear Operator Relationship Specialty Start Date End Date Ana María Bryan MD [address] [place] [phone] PCP - General Family Medicine 03/26/18
--- OUTSIDE RECORDS SUMMARY | 2024-04-23 16:19 | XMS_ITS | Encounter Summary ---
Author Organization [employer] Address [address] [facility] 7t [place] [address] Care Team Providers Care Hyster Driver Name Role Phone Ana María Bryan MD Primary Care Provider + Reason for Visit * Reason Comments Med Refill Encounter Details Date Type Department Care Team ([facility] st Contact Info) Description 10/29/2023 Refill [facility] MED & PEDS [address] [place] [address] Ana María Bryan MD [address] [place] [address] Primary insomnia Social History Tobacco Use Types Packs/Day Years Used Date Smoking Tobacco: Never Passive Smoke Exposure: Never Smokeless Tobacco: Never Alcohol Use Standard Drinks/Week Comments Never 0 (1 standard drink = 0.6 oz pur e alcohol) Depression Answer Date Recorded Patient Health Questionnaire-9 Score 1 04/13/2022 Housing Stability Answer Date Recorded What is your housing situation today? I have dominickbashir wilkerson 08/06/[address] you [...] Orientation Straight 05/24/2022 11 :08 AM EST documented as of this encounter Plan of Treatment Not on file documented as of this encounter Visit Diagnoses Diagnosis Primary insomnia Persistent disorder of initiating or maintaining sleep documented in this encounter Additional Health Concerns Assessment Noted Time PHQ-9 Depression Total Score: 1 04/13/19 23 10:26 AM EST documented as of this encounter Care Teams Hyster Driver Relationship Specialty Start Date End Date Ana María Bryan MD [address] [place] [address] PCP - General Family Medicine 03/26/18 documented as of this encounter
--- OUTSIDE RECORDS SUMMARY | 2024-04-23 16:19 | XMS_ITS | Encounter Summary ---
Author Organization [employer] Address [address] [facility] 7t [place] [address] Care Team Providers Care Tire Regrooving Machine Operator Name Role Phone Ana María Bryan MD Primary Care Provider + Encounter Details Date Type Department Care Team (Latest Contact Info) Description 05/25/2021 Abstract [facility] Dental, Provider, DDS Social History Tobacco Use Types Packs/Day Years Used Date Smoking Tobacco: Never Assessed Comments Unknown Sex and Gender Information Value Date Recorded Sex Assigned at Female 01/23/2022 10:31 AM EDT Legal Sex Female 10:31 AM EDT Gender Identity Female 01/23/2022 10:31 AM EDT Sexual Orientation Straight 05/24/2022 11 :08 AM EST documented as of this encounter Plan of Treatment Not on file documented as of this encounter Visit Diagnoses Not on filedocumented in this encounter Care Teams Tire Regrooving Machine Operator Relationship Specialty Start Date End Date Ana María Bryan MD [address] [place] [address] PCP - General Family Medicine 03/26/18 documented as of this encounter
--- OUTSIDE RECORDS SUMMARY | 2024-04-23 16:19 | XMS_ITS | Encounter Summary ---
Author Organization [employer] Address [address] [facility] 7t [place] [address] Care Team Providers Care Impregnator And Drier Name Role Phone Ana María Bryan MD Primary Care Provider + Encounter Details Date Type Department Care Team (Latest Contact Info) Description 01/29/2019 Abstract [facility] Dental, Provider, DDS Social History Tobacco [...] on filedocumented in this encounter Care Teams Impregnator And Drier Relationship Specialty Start Date End Date Ana María Bryan MD [address] [place] [address] PCP - General Family Medicine 03/26/18 documented as of this encounter
--- OUTSIDE RECORDS SUMMARY | 2024-04-23 16:19 | XMS_ITS | Encounter Summary ---
Author Organization [employer] Address [address] [facility] 7t [place] [address] Care Team Providers Care Urban Planner Name Role Phone Ana María Bryan MD Primary Care Provider + Reason for Visit * Reason Comments Med Refill Encounter Details Date Type Department Care Team ([facility] st Contact Info) Description 11/18/2023 Refill [facility] [address] [place] [address] Ana María Bryan MD [address] [place], [place] [phone] Acute deep vein thrombosis (DVT) of proximal vein of right lower extremity (CMS/HCC) Social History Tobacco Use Types Packs/Day Years Used Date Smoking Tobacco: Never Passive Smoke Exposure: Never Smokeless Tobacco: Never Alcohol Use Standard Drinks/Week Comments Never 0 (1 standard drink = 0.6 oz pur e alcohol) Depression Answer Date Recorded Patient Health Questionnaire-9 Score 1 04/13/2022 Housing Stability Answer Date Recorded What is your housing situation today? I have dominick rock 08/06/[address] you li [...] as of this encounter Visit Diagnoses Diagnosis Acute deep vein thrombosis (DVT) of proximal vein of right lower extremity (CMS/HCC) documented in this encounter Additional Health Concerns Assessment Noted Time PHQ-9 Depression Total Score: 1 04/13/19 23 10:26 AM EST documented as of this encounter Care Teams Urban Planner Relationship Specialty Start Date End Date Ana María Bryan MD [address] [place] [phone] PCP - General Family Medicine 03/26/18 documented as of this encounter
--- OUTSIDE RECORDS SUMMARY | 2024-04-23 16:20 | XMS_ITS | Clinical Summary ---
Author Organization [facility] Address [address] [place] [address] Care Team Providers Care Entry Level Civil Engineer Name Role Phone Pcp, No Primary Care Provider Unavailabl e Social History Tobacco Use Types Packs/Day Years Used Date Smoking Tobacco: Never Assessed Sex and Gender Information Value Date Recorded Sex Assigned at Not on file Gender Identity Not on file Sexual Orientation Not on file Plan of Treatment Health Maintenance Due Date Last Done Comments Hepatitis C Virus Screening 1950 DTaP/Tdap/Td Vaccines (1 - Tdap) 1968 Mammogram 1989 Colonoscopy 1994 Pneumococcal Vaccines 50+ (1 of 1 - PCV) 06/28/1999 Zoster (Shingles) Vaccine (1 of 2) 06/28/1999 DXA Bone Density (Females,Ag es 65 and older) 2014 Influenza Vaccine 10/25/2023 COVID-19 Vaccine ( - 2023-2 5 season) 2023 RSV Vaccine 60 years and old er and Patients (1 - 1-dose 75+ series) 2024 Hepatitis B Vaccines Aged Out No long er eligible based on patient's age to complete this topic Care Teams Entry Level Civil Engineer Relationship Specialty Start Date End Date Pcp, No [address] [place] [address] PCP - General 12/17/19
--- OUTSIDE RECORDS SUMMARY | 2024-04-23 16:20 | XMS_ITS | Clinical Summary ---
Author Organization [address] [facility] Address [address] [place] [address] Phone Care Team Providers Care Disposition Clerk Name Role Phone Ana María Bryan MD Primary Care Provider Social History Tobacco Use Types Packs/Day Years Used Date Smoking Tobacco: Never Assessed Sex and Gender Information Value Date Recorded Sex Assigned at Not on file Gender Identity Not on file Sexual Orientation Not on file Plan of Treatment Upcoming Encounters Date Type Department Care Team ([facility] st Contact Info) Description 05/20/2024 10:30 AM EST Office Visit Orthopedic Surgery - [place] [phone] [phone] Chris Urrutia, DPDanika [address] [address] Health Maintenance Due Date Last Done Comments Breast Cancer Screening 1950 DTaP,Tdap,and Td Vaccines (1 - Tdap) 1968 Zoster Vaccines (1 of 2) 06/28/1999 Pneumococcal Vaccine: 65+ Ye ars (1 of 1 - PCV) 2014 COVID-19 Vaccine ( - 2023-2 5 season) 2023 Influenza Vaccine (#1) 2023 Colorectal Cancer Screening: Colonoscopy 02/06/2024 Depression Screening 02/06/2024 Falls Risk Assessment 02/06/2024 Hepatitis C Screening 02/06/2024 Medicare Annual Wellness Visit 02/06/2024 Osteoporosis Screening (Bone Density Screening) 02/06/2024 Social Influencers of Health Screening 02/06/2024 RSV Immunization Patients 60 + Years Old (1 - 1-dose 75+ series) 2024 HIB Vaccines Aged Out No longer eligi ble based on patient's age to complete this topic HPV Vaccines Aged Out No longer eligi ble based on patient's age to complete this topic Hepatitis A Vaccines Aged Out No long er eligible based on patient's age to complete this topic Hepatitis B Vaccines Aged Out No long er eligible based on patient's age to complete this topic IPV Vaccines Aged Out No longer eligi ble based on patient's age to complete this topic MMR Vaccines Aged Out No longer eligi ble based on patient's age to complete this topic Meningococcal ACWY Vaccine Aged Out N o longer eligible based on patient's age to complete this topic RSV Immunization Patients Un paula 20 months Aged Out No longer eligible b ased on patient's age to complete this topic Varicella Vaccines Aged Out No longer eligible based on patient's age to complete this topic Care Teams Disposition Clerk Relationship Specialty Start Date End Date Ana María Bryan MD [address] [place] [phone] PCP - General Internal Medicine 02/06/24
--- OUTSIDE RECORDS SUMMARY | 2024-04-23 16:20 | XMS_ITS | Encounter Summary ---
Author Organization [employer] Address [address] [facility] 7t [place] [address] Care Team Providers Care Football Coach Name Role Phone Ana María Bryan MD Primary Care Provider + Encounter Details Date Type Department Care Team ([facility] st Contact Info) Description 05/08/2022 [facility] Information Management [address] [place] [address] Ana María Bryan MD [address] [place] [address] Social History Tobacco Use Types Packs/Day Years Used Date Smoking Tobacco: Never Smokeless Tobacco: Never Alcohol Use Standard Drinks/Week Comments Never 0 (1 standard drink = 0.6 oz pur e alcohol) Depression Answer Date Recorded Patient Health Questionnaire-9 Score 1 04/13/2022 Comments No Sex and Gender Information Value Date Recorded Sex Assigned at Female 01/23/2022 10:31 AM EDT Legal Sex Female 10:31 AM EDT Gender Identity Female 01/23/2022 10:31 AM EDT Sexual Orientation Straight 05/24/2022 11 :08 AM EST COVID-19 Exposure Response Date Recorded In the last 10 days, have yo u been in contact with someone who was confirmed or suspected to have Coronavirus/COVID-19? No / Unsure 04/13/2022 10:03 AM EST documented as of this encounter Plan of Treatment Not on file documented as of this encounter Visit Diagnoses Not on filedocumented in this encounter Additional Health Concerns Assessment Noted Time PHQ-9 Depression Total Score: 1 04/13/19 23 10:26 AM EST documented as of this encounter Care Teams Football Coach Relationship Specialty Start Date End Date Ana María Bryan MD [address] [place] [phone] PCP - General Family Medicine 03/26/18 documented as of this encounter
--- OUTSIDE RECORDS SUMMARY | 2024-04-23 16:20 | XMS_ITS | Encounter Summary ---
Author Organization [employer] Address [address] [facility] 7t [place] [address] Care Team Providers Care Radio Announcer Name Role Phone Ana María Bryan MD Primary Care Provider + Encounter Details Date Type Department Care Team (Late st Contact Info) Description 03/17/2022 Orders Only [facility] MEDICINE [address] [place] [address] Dary Nuno MD [address] [place] [address] Acute deep vein thrombosis (DVT) of proximal vein of right lower extremity (CMS/HCC) (Primary Dx) Social History Tobacco Use Types Packs/Day Years [...] of proximal vein of right lower extremity (CMS/HCC)- Primary documented in this encounter Care Teams Radio Announcer Relationship Specialty Start Date End Date Ana María Bryan MD [address] [place] [address] PCP - General Family Medicine 03/26/18 documented as of this encounter
--- OUTSIDE RECORDS SUMMARY | 2024-04-23 16:20 | XMS_ITS | Encounter Summary ---
Author Organization [employer] Address [address] [facility] 7t [place] [address] Care Team Providers Care Barrel Filler Name Role Phone Ana María Bryan MD Primary Care Provider + Encounter Details Date Type Department Care Team (Late st Contact Info) Description 09/12/2022 Abstract [facility]INE [address] [place] [address] Ana María Bryan MD [address] [place] [address] Social History Tobacco Use Types Packs/Day Years Used Date Smoking Tobacco: Never Smokeless Tobacco: Never Alcohol Use Standard Drinks/Week Comments Never 0 (1 standard drink = 0.6 oz pur e alcohol) Depression Answer Date Recorded Patient Health Questionnaire-9 Score 1 04/13/2022 Depression Answer Date Recorded Patient Health Questionnaire-2 Score 0 05/18/2022 Comments No Sex and Gender Information Value Date Recorded Sex Assigned at Female 01/23/2022 10:31 AM EDT Legal Sex Female 10:31 AM EDT Gender Identity Female 01/23/2022 10:31 AM EDT Sexual Orientation Straight 05/24/2022 11 :08 AM EST documented as of this encounter Plan of Treatment Not on file documented as of this encounter Procedures Procedure Name Priority Date/Time Associated Diagnosis Comments COLONOSCOPY Routine 09/16/2019 3:11 PM EDT documented in this encounter Results * Hm Colonoscopy (09/16/2019 3:11 PM EDT) Colonoscopy Normal Normal Narrative Bea Mix - 09/16/2019 3:11 PM EDT Recommended 3 year follow up us Historical Provider HEALTH MAINTENANCE Edited Result - Final documented in this encounter Visit Diagnoses Not on filedocumented in this encounter Additional Health Concerns Assessment Noted Time PHQ-9 Depression Total Score: 1 04/13/19 23 10:26 AM EST documented as of this encounter Care Teams Barrel Filler Relationship Specialty Start Date End Date Ana María Bryan MD [address] [place] [address] PCP - General Family Medicine 03/26/18 documented as of this encounter
--- OUTSIDE RECORDS SUMMARY | 2024-04-23 16:20 | XMS_ITS | Encounter Summary ---
Author Organization [employer] Address [address] [facility] 7t [place] [address] Care Team Providers Care Sack Department Supervisor Name Role Phone Ana María Bryan MD Primary Care Provider + Reason for Visit * Reason Comments Med Refill Encounter Details Date Type Department Care Team ([facility] st Contact Info) Description 04/23/2024 Refill [facility] MEDICINE [address] [place], [place] [phone] Ana María Bryan MD [address] [place], [place] [phone] Primary insomnia Social History Tobacco Use Types [...] enough money to get more: Never True 05/ Transportation Answer Date Recorded In the past [...] documented as of this encounter Care Teams Sack Department Supervisor Relationship Specialty Start Date End Date Ana María Bryan MD [address] [place] [address] PCP - General Family Medicine 03/26/18 documented as of this encounter
--- OUTSIDE RECORDS SUMMARY | 2024-04-23 16:20 | XMS_ITS | Encounter Summary ---
Author Organization [employer] Address [address] [facility] 7t [place] [address] Care Team Providers Care Polymer Specialist Name Role Phone Ana María Bryan MD Primary Care Provider + Reason for Visit * Reason Comments Med Refill Encounter Details Date Type Department Care Team ([facility] st Contact Info) Description 11/21/2022 Refill [facility] MEDICINE [address] [place], [place] [phone] Ana María Bryan MD [address] [place], [place] [phone] Type 2 diabetes mellitus with stage 3 chronic kidney disease, with long-term current use of insulin, unspecified whether stage 3a or 3b CKD (CMS/HCC) Social History Tobacco Use Types Packs/Day [...] as of this encounter Visit Diagnoses Diagnosis Type 2 diabetes mellitus with stage 3 chronic kidney disease, with long-term current use of insulin, unspecified whether stage 3a or 3b CKD (CMS/HCC) documented in this encounter Additional Health Concerns Assessment Noted Time PHQ-9 Depression Total Score: 1 04/13/19 23 10:26 AM EST documented as of this encounter Care Teams Polymer Specialist Relationship Specialty Start Date End Date Ana María Bryan MD [address] [place] [phone] PCP - General Family Medicine 03/26/18 documented as of this encounter
--- OUTSIDE RECORDS SUMMARY | 2024-04-23 16:20 | XMS_ITS | Encounter Summary ---
Author Organization [employer] Address [address] [facility] [address]t [place] [address] Care Team Providers Care Client Experience Manager Name Role Phone Ana María Bryan MD Primary Care Provider + Encounter Details Date Type Department Care Team (Late st Contact Info) Description 04/02/2024 Orders Only GENERIC EXTERNAL DATA DEPARTMENT Provider, Generic External Data Social History Tobacco Use Types Packs/Day Years [...] t he electric, gas, oil or water [employer] threatened to shut off services in your [...] WITHOUT CALCIUM Routine 04/02/2024 11:35 AM EST HEMOGLOBIN A1C Routine 04/02/2024 11:35 AM EST BASIC METABOLIC PANEL Routine 04/02/2024 11:35 AM EST documented in this encounter Results * Vitamin D, 25-Hydroxy, Total, Immunoassay (04/02/2024 11:35 AM EST) Vitamin D 25-OH Total 36.8 >30 ng/mL [facility] Comment:Health Based Referen ce Values*< 20 ng/mL Vbqnlxhei10-23 ng/mL Insufficient> 30 ng/mL Sufficient*Carlos Manuel BERRY. [...] ORDERAB LES Final Result Performing Organization Address City/[facility] Co de Phone Number [facility] [address] [place] [phone] * (ABNORMAL) PTH, Intact Without Calcium (04/02/2024 11:35 AM EST) Parathyroid Hormone, Intact 137.5(H) 8.7 - 77.1 pg/mL [facility] 04/02/2024 11:3 5 AM EST 04/02/2024 11:35 AM EST Generic External Data Provider LAB BLOOD ORDERAB LES Final Result Performing Organization Address [facility] Co de Phone Number [facility] [address] [place] [phone] * (ABNORMAL) Basic Metabolic Panel (04/02/2024 11:35 AM EST) Sodium 140 135 - 145 mmol/L [facility] Potassium 4.7 3.3 - 5.1 mmol/L [facility] Chloride 105 96 - 108 mmol/L [facility] Carbon Dioxide 28 22 - 29 mmol/L [facility] Anion Gap 12 12 - 20 [facility] Urea Nitrogen (BUN) 27(H) 9 - 16 mg/dL [facility] Creatinine, Serum 0.96 0.5 - 1.4 mg/dL [facility] Estimated Glomerular Filt Rate 57 [facility] Comment:Chronic Kidney Disea se: Estimated GFR < 60 mL/min/1.71a3Cqxosy Kidney Disease: Estimated GFR < 15 mL/min/1.73m2 Glucose 119(H) 60 - 115 mg/dL [facility] Calcium 9.5 8.4 - 10.2 mg/dL [facility] 04/02/2024 11:3 5 AM EST 04/02/2024 11:35 AM EST Generic External Data Provider LAB BLOOD ORDERAB LES Final Result Performing Organization Address [facility] Co de Phone Number [facility] [address] [place] [phone] * (ABNORMAL) Hemoglobin A1c (04/02/2024 11:35 AM EST) Hemoglobin A1c 7.5(H) <6.0 % [facility] Comment:Hemoglobin A1C Refer ence Range Adults: 4.8 - 6.0 % Non diabetic: < 6.0 % Goal: < 7.0 %Additional Action Suggested: > 8.0 %Note: Hemoglobin A1c results are invalid for patients with abnormal amounts of HbF. Blood transfusions may impact the HbA1c concentration in the patient sample. Estimated Average Glucose 169 mg/dL [facility] Comment:eAG = Estimated ave rage glucose which is %A1C expressed asaverage glucose, using the formula of the E3U-VwxqhyxZxubmrd Glucose study (ADAG), Diabetes Care, Vol.31,#8,Oct. 2007 04/02/2024 11:3 5 AM EST 04/02/2024 11:35 AM EST us Generic External Data Provider LAB BLOOD ORDERAB LES Final Result Performing Organization Address [facility] Co de Phone Number [facility] [address] [place] [phone] documented in this encounter Visit Diagnoses Not on filedocumented in this encounter Additional Health Concerns Assessment Noted Time PHQ-9 Depression Total Score: 1 04/13/19 23 10:26 AM EST documented as of this encounter Care Teams Client Experience Manager Relationship Specialty Start Date End Date Ana María Bryan MD [address] [place] [phone] PCP - General Family Medicine 03/26/18 documented as of this encounter
--- OUTSIDE RECORDS SUMMARY | 2024-04-23 16:20 | XMS_ITS | Encounter Summary ---
Author Organization [employer] Address [address] [facility] 7t [place] [address] Care Team Providers Care Biomedical Equipment Tech Name Role Phone Ana María Bryan MD Primary Care Provider + Encounter Details Date Type Department Care Team (Late st Contact Info) Description 05/11/2022 Orders Only [facility] [address] [place] [address] Vandana Ledesma DO [address] [place], [place] [phone] Social History Tobacco Use Types Packs/Day Years [...] documented as of this encounter Care Teams Biomedical Equipment Tech Relationship Specialty Start Date End Date Ana María Bryan MD [address] [place] [phone] PCP - General Family Medicine 03/26/18 documented as of this encounter
[2024-04-24 15:43] LABS: Calcium, 24 Hr Urine 37 mg/24 h; Calcium/Creatinine Ratio 52 mg/g creat (30-275); Creatinine 24Hr Urine 0.71 g/24 h (0.50-2.15)
== END 2024-04-23 13:59 | disposition home or self-care (01) ==
LOC: HO.LNP 13:58
PROVIDERS: Visit Provider Internal Medicine Endocrinology, Diabetes & Metabolism
DX: M81.0 Age-related osteoporosis without current pathological fracture (principal)
CPT/HCPCS: 82340; 82570

== ENCOUNTER → 2024-05-02 10:10 | Outpatient (BNVA) | payer OTHER, SELFPAY | PROVIDERS: PCP Internal Medicine; Visit Provider Physician Assistant | DX: E11.65 Type 2 diabetes mellitus with hyperglycemia (principal); E11.21 Type 2 diabetes mellitus with diabetic nephropathy | CPT/HCPCS: 82947; 99212 ==

== ENCOUNTER → 2024-05-02 10:10 | Outpatient (AMB) | payer OTHER, SELFPAY ==
[2024-05-02 10:26] LABS: Glucose, Whole Blood 138 mg/dL (60-115)
== END | disposition home or self-care (01) ==
PROVIDERS: PCP Internal Medicine; Visit Provider Physician Assistant

== ENCOUNTER 2024-06-30 13:09 | Outpatient (AMB) | payer OTHER, SELFPAY ==
--- NOTE | 2024-06-30 13:30 | A.OFFVIS_ITS ---
Vital Signs 06/30/24 13:31 Height 4 ft 9 in Weight 105 lb 13.15 oz BMI 22.9 BP 134/62 Blood Pressure Location Rt brachial Position Sitting Pulse 76 Pulse Source Pulse Oximeter Pulse Oximetry (%) 98 Oxygen Delivery Method Room Air Intake Visit Reasons: T2DM Intake Note: Patient presents today for a follow-up on Type 2 Diabetes Mellitus: Last Diabetic eye exam was on: June 2023 Last Podiatry exam was on: Patient does not see a Material Mover Most recent HbA1c: 8.2%, 06/30/2024 Random Glucose- 97 mg/dL, Today Top Lift Compresser Required: Yes Top Lift Compresser Language: Fountain Brush Assembler Name: ARTI Grimaldo/LYNNE CHAHAL Information Interpreted: non-clinical & clinical Accompanied by: Daughter Allergies diphenhydramine [From Benadryl] Adverse Reaction (Verified 06/30/24 13:34) Anxiety Medication List - Last Reconciled 06/30/24 by Bela Jackson PA-C acetaminophen 500 mg PO NEEDED PRN apixaban (Eliquis) 5 mg PO DAILY ascorbic acid (vitamin C) (Vitamin C) 500 mg PO QAM atorvastatin 80 mg PO BEDTIME blood sugar diagnostic (OneTouch Verio test strips) 4 times in day blood-glucose meter (OneTouch Verio Flex Meter) As directed blood-glucose sensor (DexTixie ([employer] G7 Sensor device) Use daily As directed to monitor glucose. change q 10 days cholecalciferol (vitamin D3) (Vitamin D3) 50 mcg (2 x 25 mcg (1,000 unit)) PO QAM docusate sodium 100 mg PO BID ferrous sulfate 325 mg PO BID fluticasone propionate 50 mcg/actuation 1 - 2 sprays intranasal DAILY PRN gabapentin 100 mg PO DAILY insulin glargine (Lantus Solostar U-100 Insulin) 15 units (0.15 mL) subcut QPM insulin lispro (Humalog KwikPen (U-100) Insulin) 2 - 5 units (0.02 - 0.05 mL) subcut TID lancets (OneTouch Delica Plus Lancet) TEST BLOOD SUGAR 4 TIMES A DAY lisinopril 2.5 mg PO QAM melatonin 5 mg PO BEDTIME molnupiravir (Lagevrio) mg PO mycophenolate sodium 180 mg PO BID pantoprazole 40 mg PO DAILY pen needle, diabetic (BD Florencia 2nd Gen Pen Needle) twice a day prednisone 5 mg PO DAILY tacrolimus 3 mg PO BID trazodone 200 mg PO BEDTIME PRN HPI HPI T2DM: Details: Patient is a 73-year-old female with a significant past medical history of diabetes, history of end-stage renal disease, s/p renal transplant, hypertension, hyperlipidemia, chronic anticoagulation, osteoporosis presenting today for a follow up regarding her diabetes. Fitness Worker Sangita. Patient is also accompanied by her daughter who is a caregiver. Dm-She was seen recently by myself and provided it Dexcom. Her A1c today is 8.2. She is currently on Lantus 15 units nightly, Humalog 4-5 units 3 times a day -She was getting utis with the jardiance and this was recently d/c'd by her head counselor. cgm-has been unable to get this. Needs it to go through reliable. She states that she is rarely ever hypoglycemic and this only ever happens if she does not eat something because of the stress. She has not had any hypoglycemia in the last week. On an GEORGETTE inhibitor Nephro: History of end-stage renal disease, s/p renal transplant 2011. Follows with Dr. Parr. CV: Blood pressure today in the office is 134/62. She is on lisinopril 2.5 mg. Cholesterol controlled with 80 mg of atorvastatin. 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 Mother No problems noted. Sister Breast cancer Diabetes Maternal Aunt Cancer Maternal Uncle Cancer Social History Household Members: Spouse Alcohol intake: never Patient Tobacco Use Status: Never used Tobacco service: No Current occupational status: retired Gender identity: Female Physical Exam Vital Signs: Last Vital Signs Pulse 76 06/30/24 13:31 BP 134/62 06/30/24 13:31 Pulse Ox 98 06/30/24 13:31 Oxygen Delivery Method Room Air 06/30/24 13:31 BMI result Body Mass Index 22.9 Const Orientation/consciousness: patient oriented x3 HEENT Ears: hearing grossly normal bilaterally Neck Thyroid: Thyroid normal Lymphatic: no lymphadenopathy noted Resp Auscultation: clear to auscultation bilaterally Cardio Rate: regular rate Rhythm: regular rhythm Heart sounds: S1 normal heart sound present and S2 normal heart sound present Skin General skin exam: no rashes or lesions noted Neuro General: patient oriented x3, gait normal and no focal motor deficits Results AMB Hemoglobin A1c AMB Hemoglobin A1c 8.2 % Last Edit by ARTI Grimaldo on 06/30/24 13:55 Results Reviewed Results Reviewed: Laboratory Last Values Glucose (Clinic) 97 mg/dL (60-115) 06/30/24 13:37 Laboratory Tests 04/02/24 05/02/24 11:35 10:22 Creatinine 0.96 Estimated GFR 57 Glucose (Clinic) 138 H Random Glucose 119 H Hemoglobin A1c % 7.5 H Assessment & Plan Assessment & Plan (1) Diabetic nephropathy associated with type 2 diabetes mellitus: Code(s): E11.21 - Type 2 diabetes mellitus with diabetic nephropathy Category: Medical Plan: Continue with the Lantus 15 units and Humalog 2-5 units t.i.d.. Advised to stay off of the Jardiance. So far blood sugars appear to be controlled with just the insulin. She has been checking her blood sugars 4 times a day with a fingerstick. Two sensors were provided today and I did reorder the Dexcom sensors. We will do a follow up in 4-6 weeks to make sure that her blood sugars are adequately controlled with just see insulin regimen. (2) Hypertension: Code(s): I10 - Essential (primary) hypertension Category: Medical Plan: WNL. Continue current regimen Medications: Refilled blood-glucose sensor (Dexcom G7 Sensor device) Use daily As directed to monitor glucose. change q 10 days 3 ea 5RF E11.65 - Type 2 diabetes mellitus with hyperglycemia, Z79.4 - radio mechanic helper (current) use of insulin blood-glucose sensor (Dexcom G7 Sensor device) Use daily As directed to monitor glucose. change q 10 days 3 ea 5RF E11.65 - Type 2 diabetes mellitus with hyperglycemia, Z79.4 - radio mechanic helper (current) use of insulin Coding Level of Care Code Est Pt Level 4 (35433) Complex EM visit Add On G2211 Diagnoses Diabetic nephropathy associated with type 2 diabetes mellitus E11.21 Hypertension I10
[2024-06-30 13:31] VITALS: BP 134/62; PULSE 76; O2SAT 98; BMI 22.9
[2024-06-30 13:40] LABS: Glucose, Whole Blood 97 mg/dL (60-115)
--- OUTSIDE RECORDS SUMMARY | 2024-06-30 15:40 | XMS_ITS | Encounter Summary ---
Author Organization [employer] Address [address] [facility] 7t [place] [address] Care Team Providers Care Head Chef Name Role Phone Ana María Brayn MD Primary Care Provider + Encounter Details Date Type Department Care Team (Late st Contact Info) Description 03/17/2022 Orders Only [facility] [address] [place] [phone] Dary Nuno MD [address] [place] [phone] Acute deep vein thrombosis (DVT) of proximal [...] Care Team (Late st Contact Info) Description 07/04/2024 11:30 AM EDT Office Visit [facility] [address] [place] [phone] Ana María Bryan MD [address] [place] [address] documented as of this encounter Visit Diagnoses Diagnosis Acute deep vein thrombosis (DVT) of proximal vein of right lower extremity (CMS/HCC)- Primary documented in this encounter Care Teams Head Chef Relationship Specialty Start Date End Date Ana María Bryan MD [address] [place] [phone] PCP - General Family Medicine 03/26/18 documented as of this encounter
--- OUTSIDE RECORDS SUMMARY | 2024-06-30 15:40 | XMS_ITS | Encounter Summary ---
Author Organization [employer] Address [address] [facility] 7t [place] [address] Care Team Providers Care Reel Blade Bender Furnace Tender Name Role Phone Ana María Bryan MD Primary Care Provider + Reason for Visit * Reason Comments Med Refill Encounter Details Date Type Department Care Team ([facility] st Contact Info) Description 11/18/2023 Refill [facility] [address] [place] [address] Ana María Bryan MD [address] [place], [place] [phone] Acute deep vein thrombosis (DVT) of proximal [...] Description 07/04/2024 11:30 AM EDT Office Visit [facility] [address] [place] [address] Ana María Bryan MD [address] [place] [address] documented as of this encounter Visit Diagnoses Diagnosis Acute deep vein thrombosis (DVT) of proximal vein of right lower extremity (CMS/HCC) documented in this encounter Additional Health Concerns Assessment Noted Time PHQ-9 Depression Total Score: 1 04/13/19 23 10:26 AM EST documented as of this encounter Care Teams Reel Blade Bender Furnace Tender Relationship Specialty Start Date End Date Ana María Bryan MD [address] [place] [address] PCP - General Family Medicine 03/26/18 documented as of this encounter
--- OUTSIDE RECORDS SUMMARY | 2024-06-30 15:40 | XMS_ITS | Encounter Summary ---
Author Organization [employer] Address [address] [facility] [address] [place] [address] Care Team Providers Care Retail Parts Professional Name Role Phone Ana María Bryan MD Primary Care Provider + Reason for Visit * Reason Comments Med Refill Encounter Details Date Type Department Care Team ([facility] st Contact Info) Description 10/29/2023 Refill [facility] [address] [place] [address] Ana María Bryan MD [address] [place] [address] Primary insomnia Social History Tobacco Use Types [...] Description 07/04/2024 11:30 AM EDT Office Visit [facility] [address] [place] [address] Ana María Bryan MD [address] [place] [address] documented as of this encounter Visit Diagnoses Diagnosis Primary insomnia Persistent disorder of initiating or maintaining sleep documented in this encounter Additional Health Concerns Assessment Noted Time PHQ-9 Depression Total Score: 1 04/13/19 23 10:26 AM EST documented as of this encounter Care Teams Retail Parts Professional Relationship Specialty Start Date End Date Ana María Bryan MD [address] [place] [phone] PCP - General Family Medicine 03/26/18 documented as of this encounter
--- OUTSIDE RECORDS SUMMARY | 2024-06-30 15:40 | XMS_ITS | Clinical Summary ---
Author Organization [employer] Address [address] [facility] 7t [place] [address] Care Team Providers Care Eye Surgeon Name Role Phone Ana María Bryan MD [...] MEALS DIRECTED Active Lancets (OneTouch Delica Plus [id number]) [facility] [place] BLOOD SUGAR 4 TIMES A DAY [...] Active polyethylene glycol, PEG, 3350 (MiraLax Mix-In [place]) 17 g packetIndications: Slow transit constipation Take 1 packet by mouth every day mixed with 8 oz water, juice, soda, coffee, or tea. 30 packet 023 Active glucose (Glutose) 40 % gel oral gelIndications:Typ e 2 diabetes mellitus with stage 3 chronic kidney disease, with long-term current use of insulin, unspecified whether stage 3a or 3b CKD (CMS/FORMERLY [facility]) TAKE 1/2 TUBE BY MOUTH NEEDED HYPOGLYCEMIA [...] unspecified whether stage 3a or 3b CKD ([facility]/HCC) TEST BLOOD SUGAR FOUR TIMES DAILY 100 strip 11 024 Active Molnupiravir 200 MG capsule Take 800 mg by mouth 2 times daily. Take 4 tabs (800 mg) po bid for 5 days. Citizen Of [place] label 40 capsule Active docusate sodium (Colace) 100 MG capsule TAKE 1 CAPSULE BY MOUTH TWICE DAILY NEEDED 180 capsule 1 024 Active atorvastatin (Lipitor) 80 MG tabletIndications: Hyperlipidemia, unspecified hyperlipidemia type TAKE 1 TABLET BY MOUTH EVERY EVENING 90 tablet 1 024 Active Ascorbic Acid (vitamin C) 500 MG tabletIndications: Iron deficiency anemia due to chronic blood loss TAKE 1 TABLET BY MOUTH EVERY MORNING 90 tablet 1 Active Pentips Generic Pen [place] 32G X 4 MM misc USE FOUR TIMES DAILY DIRECTED 100 each 5 Active traZODone (Desyrel) 100 MG tablet TAKE 1 TABLET BY MOUTH TWICE DAILY IN THE MORNING AND AT BEDTIME AFTER MEALS 60 tablet 3 Active melatonin 5 MG tabletIndications: Primary insomnia TAKE 1 TABLET BY MOUTH AT BEDTIME 90 tablet Active gabapentin (Neurontin) 100 MG capsule TAKE 1 CAPSULE BY MOUTH AT BEDTIME 90 capsule 1 Active pantoprazole (ProtoNix) 40 MG EC tabletIndications: Upper gastrointestinal bleeding TAKE 1 TABLET BY MOUTH TWICE DAILY IN THE MORNING AND IN THE EVENING 180 tablet Active gabapentin (Neurontin) 100 MG capsule TAKE 1 CAPSULE BY MOUTH AT BEDTIME 90 capsule 1 024 06/23 Discontinued pantoprazole (ProtoNix) 40 MG EC tabletIndications: Upper gastrointestinal bleeding TAKE 1 TABLET BY MOUTH TWICE DAILY IN THE MORNING AND IN THE EVENING 180 tablet 06/23 Discontinued pantoprazole (ProtoNix) 40 MG EC tabletIndications: Upper gastrointestinal bleeding Take 1 tablet (40 mg) by mouth before breakfast. Do not crush, chew, or split. 180 tablet 024 06/23 Discontinued( Duplicate order (will not trigger notification to Pharmacy)) Active Problems Problem Noted Date Diagnosed Date [...] vs gastroparesis. r/o PUD. Refer to GI, [facility] does not accept patient's insurance. Will refer to [facility]. Counseled to drink herbal tea prior to [...] colonic polyp 03/24/2022 Overview (08/15/2023): Colonoscopy at [facility] on 03/15/22 (admitted due to rectal bleeding/ischemic [...] at least until august and FU with production control clerk. We discussed avoid prolonged rest, ambulation with [...] mg daily. Jardiance held at admission. -Monitor biwgn-pm-hvmg glucose with meals and nightly, and every [...] tolerated. FU in 3 months. F/u with contract coordinator Assessment & Plan (10/23/2022 5:09 PM EDT): [...] at goal. -She has follow up with Director Asset next month. 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 [...] she states she has never had an PR/stents or stroke and has never had any [...] Encounters Date Type Department Care Team Description 06/30/2024 Orders Only GENERIC EXTERNAL DATA DEPARTMENT Provider, Generic External Data 06/25/2024 Patient Outreach [facility] MED[facility]INE [address] [place] [phone] Ijeoma Kaiser Pre-visit Planning 06/22/[address] [facility] [address] [place] [address] Ana María Bryan MD Upper gastrointestinal bleeding 05/02/2024 Orders Only GENERIC EXTERNAL DATA DEPARTMENT Provider, Generic External Data 04/23/[address] [facility] [address] [facility] [place] [address] Ana María Bryan MD Primary insomnia 04/02/2024 Orders Only GENERIC EXTERNAL DATA DEPARTMENT Provider, Generic External Data from Last 3 Months Immunizations Name Administration [...] Recorded Patient Health Questionnaire-2 Score 0 08/15/2023 Internet Access Answer Date Recorded Internet Access Q1 Yes 06/25/2024 Internet Access Q2 Not on file 06/25/2024 Comments No Sex and Gender Information Value [...] 01/12/2024 11:02 AM EDT Plan of Treatment Upcoming Encounters Date Type Department Care Team (Late st Contact Info) Description 07/04/2024 11:30 AM EDT Office Visit [facility] MED[facility]INE [address] [place] [address] Ana María Bryan MD [address] [place] [address] Health Maintenance Due Date Last Done Comments CT Colonography 1949 FIT DNA/Cologuard 1949 FIT 1949 FOBT 1950 Sigmoidoscopy 1949 Alcohol/Substance Use Screening 1961 Hepatitis C Screening 06/28/1967 Hepatitis B Vaccines (2 of 3 - 19+ 3-dose series) 05/02/2022 04/04/2022 Eye Exam 06/23/2022 06/23/2021 Colonoscopy 09/15/2022 09/16/2019 Colorectal Cancer Screening 09/15/2022 COVID-19 Vaccine ( season) 2023 12/29/2022, 01/03/2022, 07/07/2021, Additional history exists Influenza Vaccine (#1) 2023 , 12/23/2021, 01/28/2021, Additional history exists RSV Patients and Patients Aged 60 years or older (1 - 1-dose 75+ series) 2024 Diabetes: Hemoglobin A1C 07/01/2024 025, 08/15/2023, 10/23/2022, Additional history exists Depression Screening 08/14/2024 08/15/2023, 04/13/19 Diabetes: Foot Exam 08/14/2024 08/15/2023, 08/15/2023, 08/15/2023, Additional history exists Lipid Panel 12/31/2024 01/01/2024, 10/24/2022 Tobacco Screening 01/09/2025 01/10/2024 SDOH Screening 06/25/2025 06/25/2024 DTaP/Tdap/Td Vaccines (2 - Td or Tdap) [...] Procedure Name Priority Date/Time Associated Diagnosis Comments GLUCOSE, WHOLE BLOOD Routine 06/30/2024 1:37 PM EDT GLUCOSE, WHOLE BLOOD Routine 05/02/2024 10:22 AM EST VITAMIN D,25-OH,TOTAL,IA Routine 04/02/2024 11:35 AM EST PTH, INTACT WITHOUT CALCIUM Routine 04/02/2024 11:35 AM EST BASIC METABOLIC PANEL Routine 04/02/2024 11:35 AM EST HEMOGLOBIN A1C Routine 04/02/2024 11:35 AM EST LIPID PANEL WITH REFLEX TO DIRECT LDL Routine 01/01/2024 10:37 AM EDT Type 2 diabetes mellitus with stage 3 chronic kidney disease, with long-term current use of insulin, unspecified whether stage 3a or 3b CKD (CMS/[facility]) HM COLONOSCOPY Routine 09/16/2019 3:11 PM EDT from Last 3 Months or Most Recently Relevant to Health Maintenance Results * Glucose, Whole Blood (06/30/2024 1:37 PM EDT) Only the most recent of2 resultswithin the time period is included. Glucose, Whole Blood 97 60 - 115 mg/dL [facility] Comment:METER #: [id number] Testing performed in the Endocrinology Department [address] , [address], [place]. 06/30/2024 1:37 PM EDT 06/30/2024 1:40 PM EDT us Generic External Data Provider LAB BLOOD ORDERAB LES Final Result [facility] [address] [place] [phone] * Vitamin D, 25-Hydroxy, Total, Immunoassay (04/02/2024 11:35 AM EST) Vitamin D 25-OH Total 36.8 >30 ng/mL [facility] Comment:Health Based Referen ce Values*< 20 ng/mL [id number] ng/mL Insufficient> 30 ng/mL Sufficient*Carlos Manuel BERRY. [...] ORDERAB LES Final Result Performing Organization Address City/[facility]/ZIP Co de Phone Number [facility] [address] [place] [phone] * (ABNORMAL) PTH, Intact Without Calcium (04/02/2024 11:35 AM EST) Parathyroid Hormone, Intact 137.5(H) 8.7 - 77.1 pg/mL [facility] 04/02/2024 11:3 5 AM EST 04/02/2024 11:35 AM EST us Generic External Data Provider LAB BLOOD ORDERAB LES Final Result [facility] [address] [place] [phone] * (ABNORMAL) Hemoglobin A1c (04/02/2024 11:35 AM EST) Hemoglobin A1c 7.5(H) <6.0 % [facility] Comment:Hemoglobin A1C Refer ence Range Adults: 4.8 - 6.0 % Non diabetic: < 6.0 % Goal: < 7.0 %Additional Action Suggested: > 8.0 %Note: Hemoglobin A1c results are invalid for patients with abnormal amounts of HbF. Blood transfusions may impact the HbA1c concentration in the patient sample. Estimated Average Glucose 169 mg/dL [facility] Comment:eAG = Estimated ave rage glucose which is %A1C expressed asaverage glucose, using the formula of the C7O-KyynfqeHfjouib Glucose study (ADAG), Diabetes Care, Vol.31,#8,2007 04/02/2024 11:3 5 AM EST 04/02/2024 11:35 AM EST us Generic External Data Provider LAB BLOOD ORDERAB LES Final Result Performing Organization Address City/State/[facility] Co de Phone Number [facility] [address] [place] [phone] * (ABNORMAL) Basic Metabolic Panel (04/02/2024 11:35 AM EST) Sodium 140 135 - 145 mmol/L [facility] Potassium 4.7 3.3 - 5.1 mmol/L [facility] Chloride 105 96 - 108 mmol/L [facility] Carbon Dioxide 28 22 - 29 mmol/L [facility] Anion Gap 12 12 - 20 [facility] Urea Nitrogen (BUN) 27(H) 9 - 16 mg/dL [facility] Creatinine, Serum 0.96 0.5 - 1.4 mg/dL [facility] Estimated Glomerular Filt Rate 57 [facility] Comment:Chronic Kidney Disea se: Estimated GFR < 60 mL/min/1.42q0Feyhxm Kidney Disease: Estimated GFR < 15 mL/min/1.73m2 Glucose 119(H) 60 - 115 mg/dL [facility] Calcium 9.5 8.4 - 10.2 mg/dL [facility] 04/02/2024 11:3 5 AM EST 04/02/2024 11:35 AM EST us Generic External Data Provider LAB BLOOD ORDERAB LES Final Result Performing Organization Address [facility] Co de Phone Number [facility] [address] [place] [phone] * Lipid Panel with Reflex to Direct LDL (01/01/2024 10:37 AM EDT) Triglycerides 97 <150 mg/dL [facility] Comment:Desirable Triglyceri de: less than 150 mg/dLBorderline High Triglyceride 150-199 mg/dLHigh Triglyceride: 200-499 mg/dLVery High Triglyceride: greater than or equal to 5OO mg/dL Cholesterol 138 <200 mg/dL [facility] Comment:Desirable Cholestero l: less than 200 mg/dLBorderline High Cholesterol: 200-239 mg/dLHigh Cholesterol: greater than 239 mg/dL LDL Cholesterol Calculated 61 <100 mg/dL [facility] Comment:Desirable LDL: less than 100 mg/dLNear Optimal/Above Optimal LDL: 110- 129 mg/dLBorderline High LDL: 130-159 mg/dLHigh LDL: 160-189 mg/dLVery High LDL: greater than or equal to 190 mg/dL HDL Cholesterol 58 >40 mg/dL [facility] Comment:Desirable HDL: great er than 40 mg/dL Note: This HDL assay may give artificially low results in patients with liver disease. Blood 01/01/2024 10:3 7 AM EDT 01/01/2024 11:26 AM EDT us Ana María Bryan MD LAB BLOOD ORDERABLES Fin al Result Performing Organization Address [facility]/ZIP Co de Phone Number [facility] [address] [place] [phone] * Hm Colonoscopy (09/16/2019 3:11 PM EDT) Colonoscopy Normal Normal Narrative Bea Mix - 09/16/2019 3:11 PM EDT Recommended 3 year follow up us Historical Provider HEALTH MAINTENANCE Edited Result - Final from Last 3 Months or Most Recently Relevant to Health Maintenance Insurance [facility] C3 Member Subscriber Plan / Payer (Ef fective 2022-Present) Name:Jose GallegosSofiya Relation to Subscriber:Self Name:Jose Gallegos Sofiya Payer ID:Not on file Group ID:Not on file Type:Medicaid [address] Care Teams Eye Surgeon Relationship Specialty Start Date End Date Ana María Bryan MD [address] [place] [address], [place] [address] PCP - General Family Medicine 03/26/18
--- OUTSIDE RECORDS SUMMARY | 2024-06-30 15:40 | XMS_ITS | Encounter Summary ---
Author Organization [employer] Address [address] [facility] 7t [place] [address] Care Team Providers Care Stiff Leg Derrick Operator Name Role Phone Ana María Bryan MD Primary Care Provider + Reason for Visit * Reason Comments Pre-visit Planning Encounter Details Date Type Department Care Team ([facility] st Contact Info) Description 06/25/2024 Patient Outreach [facility]INE [address] [place] [address] Ijeoma Kaiser Pre-visit Planning Social History Tobacco Use Types Packs/Day Years [...] AM EST documented as of this encounter Progress Notes * Ijeoma Awilda - 06/25/2024 10:21 AM EDT CC Ijeoma placed successful outbound call to patient for pre-visit planning. Patient name and confirmed. Patient confirms appt date and time, and has transportation. Biggest concern for appointment at this time is none Patient advised to bring to appointment a photo id and insurance card. Appropriate screenings completed in anticipation of appointment. documented in this encounter Plan of Treatment Upcoming Encounters Date Type Department Care Team (Late st Contact Info) Description 07/04/2024 11:30 AM EDT Office Visit [facility] MEDICINE [address] [place] [phone] Ana María Bryan MD [address] [place] [phone] documented as of this encounter Visit Diagnoses Not on filedocumented in this encounter Additional Health Concerns Assessment Noted Time PHQ-9 Depression Total Score: 1 04/13/19 23 10:26 AM EST documented as of this encounter Care Teams Stiff Leg Derrick Operator Relationship Specialty Start Date End Date Ana María Bryan MD [address] [place] [phone] PCP - General Family Medicine 03/26/18 documented as of this encounter
--- OUTSIDE RECORDS SUMMARY | 2024-06-30 15:40 | XMS_ITS | Clinical Summary ---
Author Organization [facility] Address [address] [place] [address] Care Team Providers Care Advertising Strategist Name Role Phone Pcp, No Primary Care [...] age to complete this topic Care Teams Advertising Strategist Relationship Specialty Start Date End Date Pcp, No [address] [place] [address] PCP - General 12/17/19
--- OUTSIDE RECORDS SUMMARY | 2024-06-30 15:40 | XMS_ITS | Encounter Summary ---
Author Organization [employer] Address [address] [facility] [address]t [place] [address] Care Team Providers Care Rail Signal Mechanic Name Role Phone Ana María Bryan MD Primary Care Provider + Encounter Details Date Type Department Care Team (Late st Contact Info) Description 06/30/2024 Orders Only GENERIC EXTERNAL DATA [...] t he electric, gas, oil or water Parental Health threatened to shut off services in your [...] Description 07/04/2024 11:30 AM EDT Office Visit [facility] MEDICINE [address] [place] [address] Ana María Bryan MD [address] [place] [address] documented as of this encounter Procedures Procedure Name Priority Date/Time Associated Diagnosis Comments GLUCOSE, WHOLE BLOOD Routine 06/30/2024 1:37 PM EDT documented in this encounter Results * Glucose, Whole Blood (06/30/2024 1:37 PM EDT) Glucose, Whole Blood 97 60 - 115 mg/dL [facility] Comment:METER #: [id number] Testing performed in the Endocrinology Department [address] , [address], [facility]. 06/30/2024 1:37 PM EDT 06/30/2024 1:40 PM EDT us Generic External Data Provider LAB BLOOD ORDERAB LES Final Result [facility] [address] [place] [phone] documented in this encounter Visit Diagnoses Not on filedocumented in this encounter Additional Health Concerns Assessment Noted Time PHQ-9 Depression Total Score: 1 04/13/19 23 10:26 AM EST documented as of this encounter Care Teams Rail Signal Mechanic Relationship Specialty Start Date End Date Ana María Bryan MD [address] [place] [address] PCP - General Family Medicine 03/26/18 documented as of this encounter
--- OUTSIDE RECORDS SUMMARY | 2024-06-30 15:40 | XMS_ITS | Encounter Summary ---
Author Organization [employer] Address [address] [facility] 7t [place] [address] Care Team Providers Care Trapeze Artist Name Role Phone Ana María Bryan MD Primary Care Provider + Encounter Details Date Type Department Care Team (Late st Contact Info) Description 05/11/2022 Orders Only [facility] [address] [place] [address] Vandana Ledemsa DO [address] [place], [place] [phone] Social History Tobacco Use Types Packs/Day Years [...] Description 07/04/2024 11:30 AM EDT Office Visit [facility] [address] [place] [address] Ana María Bryan MD [address] [place] [address] documented as of this encounter Visit Diagnoses Not on filedocumented in this encounter Additional Health Concerns Assessment Noted Time PHQ-9 Depression Total Score: 1 04/13/19 23 10:26 AM EST documented as of this encounter Care Teams Trapeze Artist Relationship Specialty Start Date End Date Ana María Bryan MD [address] [place] [address] PCP - General Family Medicine 03/26/18 documented as of this encounter
--- OUTSIDE RECORDS SUMMARY | 2024-06-30 15:40 | XMS_ITS | Encounter Summary ---
Author Organization [employer] Address [address] [facility] 7t [place] [address] Care Team Providers Care Audiovisual Technician Name Role Phone Ana María Bryan MD Primary Care Provider + Encounter Details Date Type Department Care Team (Late Contact Info) Description 09/12/2022 Abstract [facility] MEDICINE [address] [place] [phone] Ana María Bryan MD [address] [place] [address] Social History Tobacco Use Types Packs/Day Years [...] Encounters Date Type Department Care Team (Late Contact Info) Description 07/04/2024 11:30 AM EDT Office Visit [facility] MEDICINE [address] [place] [phone] Ana María Bryan MD [address] [place] [address] documented as of this encounter Procedures Procedure Name Priority Date/Time Associated Diagnosis Comments HM COLONOSCOPY Routine 09/16/2019 3:11 PM EDT documented [...] documented as of this encounter Care Teams Audiovisual Technician Relationship Specialty Start Date End Date Ana María Bryan MD [address] [place] [address] PCP - General Family Medicine 03/26/18 documented as of this encounter
--- OUTSIDE RECORDS SUMMARY | 2024-06-30 15:40 | XMS_ITS | Clinical Summary ---
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); Arthritis of both feet; Left foot pain; Hammertoes of both feet; Dermatophytosis, nail from Last 3 Months Social History Tobacco Use Types Packs/Day Years Used Date Smoking Tobacco: Never Assessed Comments Unknown Sex and Gender Information Value Date Recorded Sex Assigned at Not on file Legal Sex Female 2:31 PM EST Gender Identity Not on file Sexual Orientation Not on file Plan of Treatment Upcoming Encounters Date Type Department Care Team ([facility] st Contact Info) Description 07/22/2024 10:15 AM EDT Office Visit Orthopedic [facility] [address] [phone] Chris Urrutia DPM [address] [address] Health Maintenance Due Date Last Done Comments Breast Cancer Screening 1950 Diabetes: Annual Foot Exam 06/28/1959 Diabetes: Annual Retina Eye Exam 06/28/1959 RSV Immunization Adult Patients (1 - Risk 60-74 years 1-dose series) 2009 Hepatitis B Vaccines (2 of 3 - 19+ 3-dose series) 05/02/2022 04/04/2022 COVID-19 Vaccine ( season) 2023 12/29/2022, 01/03/2022, 07/07/2021, Additional history exists Influenza Vaccine (#1) 2023 , 12/23/2021, 01/28/2021, Additional history exists Cholesterol Screening (Lipid Panel) 02/06/2024 Colorectal Cancer Screening: Colonoscopy 02/06/2024 Depression Screening 02/06/2024 04/13/2022 Falls Risk Assessment 02/06/2024 Hepatitis C Screening 02/06/2024 Medicare Annual Wellness Visit 02/06/2024 Osteoporosis Screening (Bone Density Screening) 02/06/2024 Social Influencers of Health Screening 02/06/2024 Diabetes: Annual Urine Albumin-Creatinine Ratio (uACR) 05/20/2024 Diabetes: Blood Sugar Control Test (HGBA1C) 09/30/2024 04/02/2024, 05/31/2022 Diabetes: Annual GFR (Glomerular Filtration Rate) 04/02/2025 04/02/2024, 03/25/2022 Hypertension/CHF/CAD Annual BMP Blood Test 04/02/2025 04/02/2024, 03/25/2022 DTaP,Tdap,and Td Vaccines (2 - Td or Tdap) 03/09/2027 [...] patient's age to complete this topic Meningococcal B Vaccine Aged Out No l onger eligible based on patient's age to complete this topic RSV Immunization Patients Under 20 months Aged Out No longer eligible based on patient's age to complete this topic Varicella Vaccines Aged Out No longer eligible based on patient's age to complete this topic Procedures Procedure Name Priority Date/Time Associated Diagnosis Comments XR FOOT 3+ VIEWS LEFT Routine 05/20/2024 10:42 AM EST Left foot pain from Last 3 Months Results * XR Foot 3+ Views Left (05/20/2024 10:42 AM EST) Anatomical Region Laterality Modality Lower Extremities, Foot Left Computed Radiography Narrative 06/02/2024 6:14 PM EDT Left foot 3 views weightbearing: Osteopenia throughout the foot. ??Previous hardware from ankle fracture of the fibula with syndesmotic tight rope construction. ??Severe calcifications throughout the vessels of the left foot. ??No fractures or dislocations. ??Rectus alignment of the forefoot with joint space narrowing to the tarsal and metatarsal midfoot joints us Chris Urrutia DPM IMG XR PROCEDURES Final Res ult from Last 3 Months Insurance [address] [place] [address] [facility] [employer] Care Teams Veterinary Practice Manager Relationship Specialty Start Date End Date Ana María Bryan MD [address] [place] [phone] PCP - General Internal Medicine 02/06/24
--- OUTSIDE RECORDS SUMMARY | 2024-06-30 15:40 | XMS_ITS | Encounter Summary ---
Author Organization [employer] Address [address] [facility] 7t [place] [address] Care Team Providers Care Victims Advocate Clerk/Specialist Name Role Phone Ana María Bryan MD Primary Care Provider + Encounter Details Date Type Department Care Team (Latest Contact Info) Description 01/29/2019 Abstract [facility] Dental, Provider, DDS Social History Tobacco [...] Upcoming Encounters Date Type Department Care Team ( st Contact Info) Description 07/04/2024 11:30 AM EDT Office Visit [facility] [address] [place] [address] Ana María Bryan MD [address] [place] [address] documented as of this encounter Visit Diagnoses Not on filedocumented in this encounter Care Teams Victims Advocate Clerk/Specialist Relationship Specialty Start Date End Date Ana María Bryan MD [address] [place] [address] PCP - General Family Medicine 03/26/18 documented as of this encounter
--- OUTSIDE RECORDS SUMMARY | 2024-06-30 15:40 | XMS_ITS | Clinical Summary ---
Author Organization [facility] Address [address] [place] [phone] Phone Care Team Providers Care Research Methods Instructor Name Role Phone Ana María Bryan MD Primary Care Provider [phone] Allergies Active Allergy Reactions Criticality Noted Date Comments Diphenhydramine Other (see comments) 05/11/2020 Medications atorvastatin (LIPITOR) 80 MG tablet Take 80 mg by mouth at bed time 1 Active HumuLIN 70/30 KWIKPEN (70-30) 100 UNIT/ML injection Inject 5 units 1 Active Melatonin 5 MG tablet Take 1 tablet by mouth at bed time 1 Active pantoprazole (PROTONIX) 40 MG EC tablet Take 1 tablet by mouth 1 (one) time each day Active OneTouch Ultra test strip TEST BLOOD SUGAR FIVE TIMES DAILY 1 Active UltiGuard SafePack Pen Needle 32G X 4 MM misc 1 Active Lancets (OneTouch Delica Plus [id number]) misc TEST BLOOD SUGAR 4 TIMES A DAY 1 Active Vitamin D High Potency 25 MCG (1000 UT) capsule 2 capsules a day 1 Active Acetaminophen Extra Strength 500 MG tablet TAKE 1 TO 2 TABLETS BY MOUTH EVERY MORNING THEN TAKE 1 TABLET BY MOUTH EVERY 8 HOURS NEEDED FOR PAIN OR FOR FEVER 2 Active Ascorbic Acid (vitamin C) 500 MG tablet Take 500 mg by mouth 3 Active fluticasone (FLONASE) 50 MCG/ACT nasal spray USE 1-2 SPRAYS IN EACH NOSTRIL EVERY DAY NEEDED 3 Active Docusate Sodium (DSS) 100 MG capsule Take 1 capsule by mouth 2 (two) times a day if needed 2 Active gabapentin (NEURONTIN) 100 MG capsule Take 1 capsule by mouth at bed time 8 Active traZODone (DESYREL) 100 MG tablet 3 Active apixaban (ELIQUIS) 5 MG tablet Take 5 mg by mouth 1 (one) time 1 tab in the morning 1 tab in the evening 2 Active predniSONE 5 MG tablet Take 1 tablet (5 mg total) by mouth 1 (one) time each day 30 tablet 11 4 Active ferrous sulfate 325 (65 Fe) MG EC tabletIndicatio ns:Iron deficiency anemia, not otherwise specified Take 1 tablet (325 mg total) by mouth in the morning and 1 tablet (325 mg total) in the evening. Do not crush, chew, or split.. 180 tablet 3 4 09/26/19 25 Active mycophenolate (MYFORTIC) 180 MG EC tablet Take 1 tablet (180 mg total) by mouth every morning and evening 60 tablet 11 4 Active amLODIPine (Norvasc) 2.5 MG tablet Take 1 tablet (2.5 mg total) by mouth at bed time 30 tablet 11 4 02/28/20 25 Active lisinopril 2.5 MG tablet Take 2.5 mg by mouth 1 (one) time each day Active tacrolimus (PROGRAF) 1 MG capsuleIndicati ons:Kidney replaced by transplant Take 3 capsules (3 mg total) by mouth 1 (one) time each day in the morning AND 2 capsules (2 mg total) 1 (one) time each day in the evening. 150 capsule 11 4 03/11/20 25 Active Empagliflozin (Jardiance) 25 MG tabletIndicatio ns:Proteinuria, not otherwise specified Take 25 mg by mouth 1 (one) time each day in the morning 90 tablet 3 5 06/24/19 26 Active Empagliflozin (Jardiance) 25 MG tabletIndicatio ns:Proteinuria, not otherwise specified Take 25 mg by mouth 1 (one) time each day in the morning 90 tablet 3 4 06/24/19 25 Discontinu ed(Reorder (does not appear on AVS)) Active Problems Problem Noted Date Diagnosed Date [...] mg daily. Jardiance held at admission. -Monitor nnvug-vm-[id number] glucose with meals and nightly, and every [...] tolerated. FU in 3 months. 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 Type 2 diabetes mellitus without complication Overview [...] Encounters Date Type Department Care Team Description 06/24/2024 Orders Only [facility] [address] [facility] [address] [place] [phone] Bruce Galarza MD Kidney transplant status; Renal disorder due to type 2 diabetes mellitus <Other diabetic kidney complication> (HCC) 06/23/2024 Refill [facility] [address] [place] [phone] Sloane Bonner [place] Proteinuria, not otherwise specified 06/20/2024 10:45 AM EDT Office Visit [facility] [place] [phone] [phone] Bruce Galarza MD Kidney transplant status (Primary Dx); Renal disorder due to type 2 diabetes mellitus <Other diabetic kidney complication> (HCC) from Last 3 Months Immunizations Name Administration [...] Sign Reading Time Taken Comments Blood Pressure 124/60 06/20/2024 10:37 AM EDT Pulse 66 06/20/2024 10:37 AM EDT Temperature - - Respiratory Rate 16 12/13/2022 11:32 AM EDT Oxygen Saturation 98% 06/20/2024 10:37 AM EDT Inhaled Oxygen Concentration - - Weight 48.8 kg (107 lb 9.6 oz) 06/20/2024 10:37 AM EDT Height 144.8 cm (4' 9 ) 08/29/2022 10:15 AM EDT Body Mass Index 23.28 08/29/2022 10:15 AM EDT Plan of Treatment Upcoming Encounters Date Type Department Care Team (Late st Contact Info) Description 09/16/2024 2:30 PM EDT Office Visit [facility] [address] [phone] Bruce Galarza MD [address] [phone] Health Maintenance Due Date Last Done Comments Breast Cancer Screening 1950 Diabetes: Ophthalmology Exam 04/26/2020 Diabetes: Pedal Pulse Checked 04/26/2020 Diabetes: Sensory Foot Exam 04/26/2020 Diabetes: Visual Foot Exam 04/26/2020 Colonoscopy (Post-Transplant Patient) 05/11/2020 Mammogram (Post-Transplant Patient) 05/11/2020 Pelvic Exam (Post-Transplant Patient) 05/11/2020 Diabetes: Hemoglobin A1C 07/01/2024 025, 08/15/2023, 10/23/2022, Additional history exists Influenza Vaccine (Season Ended) 2024 02/27/2019, 02/23/2018, 12/21/2017, Additional history exists Pneumococcal Vaccine: 65+ Years Completed 05/07/2018, 03/09/2017 Hepatitis B Vaccine Aged Out 04/04/2022 No longe r eligible based on patient's age to complete this topic Procedures Procedure Name Priority Date/Time Associated Diagnosis Comments TACROLIMUS LEVEL Routine 06/10/2024 10:4 5 AM EDT URINE ALBUMIN / CREATININE RATIO Routine 06/10/2024 10:45 AM EDT PROTEIN / CREATININE RATIO, URINE Routine 06/10/2024 10:45 AM EDT RENAL FUNCTION PANEL Routine 06/10/2024 10:45 AM EDT URINALYSIS WITH MICROSCOPIC Routine 06/10/2024 10:45 AM EDT MICROSCOPIC EXAMINATION - DO NOT USE Routine 06/10/2024 10:45 AM EDT HEMOGLOBIN A1C Routine 05/31/2022 10:19 AM EST 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) Iron deficiency anemia, not otherwise specified from Last 3 Months or Most Recently Relevant to Health Maintenance Results * (ABNORMAL) Microscopic Examination (06/10/2024 10:45 AM EDT) WBC, Urine >30(A) 0 - 5 /hpf [facility] RBC, Urine None seen 0 - 2 /hpf [facility] Squamous Epithelial, Urine 0-10 0 - 10 /hpf [facility] Casts None seen None seen /lpf [facility] Bacteria, Urine Many(A) None seen/Few [facility] 06/10/2024 10:4 5 AM EDT 06/10/2024 us Bruce Galarza MD LAB MICROBIOLOGY - GENERAL OR DERABLES Final Result [facility] [address] [place] [address] * Tacrolimus level (06/10/2024 10:45 AM EDT) Tacrolimus Lvl 7.3 5.0 - 20.0 ng/mL [facility] Comment: Target steady state trough concentration for Tacrolimus varies based on type of organ transplant immunosuppressive protocol and other patient specific factors. ??Tacrolimus trough concentrations should be interpreted in conjunction with clinical assessments of rejection and tolerability. ??Values obtained with different assay methods cannot be used interchangeably due to differences in assay methods and cross-reactivty with metabolites, nor should correction factors be applied. ??Therefore, consistent use of one assay for individual patients is recommended. Detection Limit = 0.5 ng/mL Performed by LC-MS/MS technology ?Please note reference interval change 06/10/2024 10:4 5 AM EDT 06/10/2024 Narrative [facility] - 06/12/2024 7:05 PM EDT Test(s) [id number] ([id number]), Blood was developed and its performance characteristics determined by [facility]. It has not been cleared or approved by the Food and Drug Administration. Bruce Galarza MD LAB BLOOD ORDERABLES Final Re sult Performing Organization Address City/[facility]/ZIP Co de Phone Number [facility] [address] [place] [address] * (ABNORMAL) Protein, Total, Random Urine w/Creatinine (Protein/Creat Ratio) (06/10/2024 10:45 AM EDT) Creatinine, Ur 73.9 Not Estab. mg/dL [facility] Protein, Ur 17.6 Not Estab. mg/dL [facility] U[facility] Protein/Creati nine Ratio 238(H) 0 - 200 mg/g creat [facility] 06/10/2024 10:4 5 AM EDT 06/10/2024 Bruce Galarza MD LAB URINE ORDERABLES Final Re sult Performing Organization Address City/[facility]/ZIP Co de Phone Number [facility] [address] [place] [address] * (ABNORMAL) Urine Albumin / Creatinine Ratio (06/10/2024 10:45 AM EDT) Pathologist [facility] Albumin, Urine 35.6 Not Estab. ug/mL [facility] Albumin/Creatin ine Ratio 48(H) 0 - 29 mg/g creat [facility] Comment: ? Normal: ?0 - ??29 ? Moderately increased: 30 - 300 ? Severely increased: ? >300 06/10/2024 10:4 5 AM EDT 06/10/2024 us Bruce Galarza MD LAB URINE ORDERABLES Final Re sult [facility] [address] [place] [address] * (ABNORMAL) Urinalysis with microscopic (06/10/2024 10:45 AM EDT) Pathologist [facility] Specific [place], Urine 1.023 1.005 - 1.030 [facility] pH Urine 5.5 5.0 - 7.5 [facility] Color, Urine Yellow Yellow [facility] Appearance Urine Clear Clear [facility] WBC Esterase Urine 2+(A) Negative [facility] Protein, Ur Trace Negative/Tr mindy [facility] Glucose, Ur 3+(A) Negative [facility] [phone] Ketones, Urine Negative Negative [facility] [phone] Blood Urine Negative Negative [facility] Bilirubin Urine Negative Negative [facility] Urobilinogen Urine 0.2 0.2 - 1.0 mg/dL [facility] Nitrite, Urine Positive(A) Negative [facility] Microscopic Examination See below: [facility] Comment:Microscopic was rachell cated and was performed. 06/10/2024 10:4 5 AM EDT 06/10/2024 us Bruce Galarza MD LAB URINE ORDERABLES Final Re sult [facility] [address] [place] [address] * (ABNORMAL) Renal Function Panel (06/10/2024 10:45 AM EDT) Glucose 95 70 - 99 mg/dL [facility] BUN 40(H) 8 - 27 mg/dL [facility] Creatinine 1.20(H) 0.57 - 1.00 mg/dL [facility] eGFR CKD-EPI CR 2020 47(L) >59 mL/min/1.7 3 [facility] BUN/Creatinine Ratio 33(H) 12 - 28 [facility] Sodium 142 134 - 144 mmol/L [facility] Potassium 4.4 3.5 - 5.2 mmol/L [facility] Chloride 102 96 - 106 mmol/L [facility] Bicarbonate (CO2) 24 20 - 29 mmol/L [facility] Calcium 10.3 8.7 - 10.3 mg/dL [facility] Albumin 4.3 3.8 - 4.8 g/dL [facility] Phosphorus 4.2 3.0 - 4.3 mg/dL [facility] 06/10/2024 10:4 5 AM EDT 06/10/2024 Bruce Galarza MD LAB BLOOD ORDERABLES Final Re sult Performing Organization Address City/[facility]/ZIP Co de Phone Number [facility] [address] [place] [address] * (ABNORMAL) Hemoglobin A1c (05/31/2022 10:19 AM EST) Hemoglobin A1C 6.8(H) (4.0-5.6) % [facility] Comment: MONITORING: In known diabetic patients, hemoglobin A1c targets should be discussed with health care provider. DIAGNOSTIC USE: ??The [place] Diabetes Association (ADA) and the World Health [...] Supplement 1 Testing performed or reported by [facility], a Service of [facility], [address] [place] [id number] Carlene Prasad MD, Harmonica Maker [facility]# [id number] Blood (Blood, Venous) 05/31/2022 10:19 AM EST 05/31/2022 10:20 AM EST Olivia Trujillo MD LAB BLOOD ORDERABLES Final Resu lt Performing Organization Address City/[facility]/ZIP Co de Phone Number [facility] from Last 3 Months or Most Recently Relevant to Health Maintenance Insurance DUAL MCR/PAUL ([id number]) SPOUT SPRING DUAL MCR/PAUL ([id number]) Care Teams Research Methods Instructor Relationship Specialty Start Date End Date Ana María Bryan MD [address] [place] [phone] PCP - General 04/05/20
--- OUTSIDE RECORDS SUMMARY | 2024-06-30 15:40 | XMS_ITS | Encounter Summary ---
Author Organization [employer] Address [address] 7t [place] [address] Care Team Providers Care Expeller Operator Name Role Phone Ana María Bryan MD Primary Care Provider + Encounter Details Date Type Department Care Team (Late Contact Info) Description 05/08/2022 [facility] Information Management [address] [place] [address] Ana María Bryan MD [address] [place] [address] Social History Tobacco Use Types Packs/Day Years [...] Description 07/04/2024 11:30 AM EDT Office Visit [facility] MEDICINE [address] [place] [address] Ana María Bryan MD [address] [place] [address] documented as of this encounter Visit Diagnoses Not on filedocumented in this encounter Additional Health Concerns Assessment Noted Time PHQ-9 Depression Total Score: 1 04/13/19 23 10:26 AM EST documented as of this encounter Care Teams Expeller Operator Relationship Specialty Start Date End Date Ana María Bryan MD [address] [place] [address] PCP - General Family Medicine 03/26/18 documented as of this encounter
--- OUTSIDE RECORDS SUMMARY | 2024-06-30 15:40 | XMS_ITS | Encounter Summary ---
Author Organization [employer] Address [address] [facility] 7t [place] [address] Care Team Providers Care Patcher Wood Welder Name Role Phone Ana María Bryan MD Primary Care Provider + Encounter Details Date Type Department Care Team (Latest Contact Info) Description 05/25/[address] [facility] CONVERSIONS Dental, Provider, DDS Social History Tobacco [...] AM EDT Office Visit [facility] MEDICINE [address] [place] [address] Ana María Bryan MD [address] [place] [address] documented as of this encounter Visit Diagnoses Not on filedocumented in this encounter Care Teams Patcher Wood Welder Relationship Specialty Start Date End Date Ana María Bryan MD [address] [place] [address] PCP - General Family Medicine 03/26/18 documented as of this encounter
--- OUTSIDE RECORDS SUMMARY | 2024-06-30 15:41 | XMS_ITS | Encounter Summary ---
Author Organization [employer] Address [address] [facility] 7t [place] [address] Care Team Providers Care Dining Services Director Name Role Phone Ana María Bryan MD Primary Care Provider + Reason for Visit * Reason Comments Med Refill Encounter Details Date Type Department Care Team (Late st Contact Info) Description 11/21/2022 Refill [facility] MEDICINE [address] [place] [address] Ana María Bryan MD [address] [place], [place] [phone] Type 2 diabetes mellitus with stage 3 [...] Description 07/04/2024 11:30 AM EDT Office Visit [facility] MEDICINE [address] [place] [address] Ana María Bryan MD [address] [place] [address] documented as of this encounter Visit Diagnoses Diagnosis Type 2 diabetes 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
--- OUTSIDE RECORDS SUMMARY | 2024-06-30 15:41 | XMS_ITS | Encounter Summary ---
Author Organization [facility] Address [address] [phone] Phone Care Team Providers Care Rice Drier Operator Name Role Phone Ana María Bryan MD Primary Care Provider Encounter Details Date Type Department Care Team (Late Contact Info) Description 06/24/2024 Orders Only [facility] [address] [phone] Bruce Galarza MD [facility] [phone] Kidney transplant status; Renal disorder due to type 2 diabetes mellitus <Other diabetic kidney complication> (HCC) Social History Tobacco Use Types Packs/Day Years [...] Office Visit [facility] [address] [phone] Bruce Galarza MD [address] [phone] documented as of this encounter Visit Diagnoses Diagnosis Kidney transplant status Renal disorder due to type 2 diabetes mellitus <Other diabetic kidney complication> (HCC) documented in this encounter Care Teams Rice Drier Operator Relationship Specialty Start Date End Date Ana María Bryan MD [address] [place] [phone] PCP - General 04/05/20 documented as of this encounter
== END 2024-06-30 13:56 | disposition home or self-care (01) ==
LOC: HO.ENCR 13:10
PROVIDERS: PCP Internal Medicine; Visit Provider Physician Assistant
DX: E11.21 Type 2 diabetes mellitus with diabetic nephropathy (principal); I10 Essential (primary) hypertension

== ENCOUNTER → 2024-06-30 13:09 | Outpatient (BNVA) | payer OTHER, SELFPAY | PROVIDERS: PCP Internal Medicine; Visit Provider Physician Assistant | DX: E11.21 Type 2 diabetes mellitus with diabetic nephropathy (principal); E11.65 Type 2 diabetes mellitus with hyperglycemia; I10 Essential (primary) hypertension; E78.5 Hyperlipidemia, unspecified; Z79.01 Long term (current) use of anticoagulants; Z94.0 Kidney transplant status | CPT/HCPCS: 82947; 83036; 99212 ==

== ENCOUNTER 2024-07-02 09:35 | Outpatient (REF) | payer OTHER, SELFPAY ==
--- OUTSIDE RECORDS SUMMARY | 2024-07-02 10:24 | XMS_ITS | Encounter Summary ---
Author Organization [employer] Address [address] [facility] 7t [place] [address] Care Team Providers Care Public Address Technician Name Role Phone Ana María Bryan MD Primary Care Provider + Reason for Visit * Reason Comments Med Refill Encounter Details Date Type Department Care Team ([facility] st Contact Info) Description 10/29/2023 Refill [facility] MED & PEDS [address] [place] [address] Ana María Bryan MD [address] [place] [address] Primary insomnia Social History Tobacco Use Types [...] Description 07/04/2024 11:30 AM EDT Office Visit [facility] MEDICINE [address] [place] [address] Ana María Bryan MD [address] [place] [address] documented as of this encounter Visit Diagnoses Diagnosis Primary insomnia Persistent disorder of initiating or maintaining sleep documented in this encounter Additional Health Concerns Assessment Noted Time PHQ-9 Depression Total Score: 1 04/13/19 23 10:26 AM EST documented as of this encounter Care Teams Public Address Technician Relationship Specialty Start Date End Date Ana María Bryan MD [address] [place] [phone] PCP - General Family Medicine 03/26/18 documented as of this encounter
--- OUTSIDE RECORDS SUMMARY | 2024-07-02 10:24 | XMS_ITS | Encounter Summary ---
Author Organization [employer] Address [address] [facility] 7t [place] [address] Care Team Providers Care Brush Painter Name Role Phone Ana María Bryan MD Primary Care Provider + Reason for Visit * Reason Comments Med Refill Encounter Details Date Type Department Care Team ([facility] st Contact Info) Description 11/18/2023 Refill [facility] MEDICINE [address] [place] [address] Ana María Bryan MD [address] [place], [place] [phone] Acute deep vein thrombosis (DVT) of proximal [...] Description 07/04/2024 11:30 AM EDT Office Visit [facility] MEDICINE [address] [place] [address] Ana María Bryan MD [address] [place] [address] documented as of this encounter Visit Diagnoses Diagnosis Acute deep vein thrombosis (DVT) of proximal vein of right lower extremity (CMS/HCC) documented in this encounter Additional Health Concerns Assessment Noted Time PHQ-9 Depression Total Score: 1 04/13/19 23 10:26 AM EST documented as of this encounter Care Teams Brush Painter Relationship Specialty Start Date End Date Ana María Bryan MD [address] [place] [address] PCP - General Family Medicine 03/26/18 documented as of this encounter
--- OUTSIDE RECORDS SUMMARY | 2024-07-02 10:25 | XMS_ITS | Encounter Summary ---
Author Organization [email or web address] Address [address] [facility] 7t [place] [address] Care Team Providers Care Wedding Consultant Name Role Phone Ana María Bryan MD Primary Care Provider + Encounter Details Date Type Department Care Team (Latest Contact Info) Description 05/25/2021 Abstract [facility] CONVERSIONS Dental, Provider, DDS Social History [...] Description 07/04/2024 11:30 AM EDT Office Visit [facility] MEDICINE [address] [place] [address] Ana María Bryan MD [address] [place] [address] documented as of this encounter Visit Diagnoses Not on filedocumented in this encounter Care Teams Wedding Consultant Relationship Specialty Start Date End Date Ana María Bryan MD [address] [place] [address] PCP - General Family Medicine 03/26/18 documented as of this encounter
--- OUTSIDE RECORDS SUMMARY | 2024-07-02 10:25 | XMS_ITS | Clinical Summary ---
Author Organization [address] [facility] [place] Address [address] [place] [address] Phone Care Team Providers Care Multimedia Manager Name Role Phone Ana María Bryan MD Primary Care Provider [phone] Encounters Date Type Department Care Team Description 05/20/2024 10:30 AM EST Office Visit [facility] [place] [phone] [phone] Chris Urrutia DPM Controlled type 2 diabetes [...] Upcoming Encounters Date Type Department Care Team ([facility] st Contact Info) Description 07/22/2024 10:15 AM EDT Office Visit [facility] [place] [address] [phone] Chris Urrutia DPM [address] [address] Health Maintenance Due Date Last Done Comments Diabetes: Annual Foot Exam 06/28/1960 Diabetes: Annual Retina Eye Exam 06/28/1960 Hepatitis B Vaccines (2 of 3 - 19+ 3-dose series) 05/02/2022 04/04/2022 COVID-19 Vaccine ( season) 2023 12/29/2022, 01/03/2022, 07/07/2021, Additional history exists Cholesterol Screening (Lipid Panel) 02/06/2024 Colorectal Cancer Screening: Colonoscopy 02/06/2024 Depression Screening 02/06/2024 04/13/2022 Falls Risk Assessment 02/06/2024 Hepatitis C Screening 02/06/2024 Medicare Annual Wellness Visit 02/06/2024 Osteoporosis Screening (Bone Density Screening) 02/06/2024 Social Influencers of Health Screening 02/06/2024 Diabetes: Annual Urine Albumin-Creatinine Ratio (uACR) 05/20/2024 RSV Immunization Adult Patients (1 - 1-dose 75+ series) 2024 Diabetes: Blood Sugar Control Test (HGBA1C) 09/30/2024 04/02/2024, 05/31/2022 Influenza Vaccine (Season Ended) 2024 12/15/2022, 12/23/2021, 01/28/2021, Additional history exists Diabetes: Annual GFR (Glomerular Filtration Rate) 04/02/2025 [...] Res ult from Last 3 Months Insurance [employer] Care Teams Multimedia Manager Relationship Specialty Start Date End Date Ana María Bryan MD [address] [place] [phone] PCP - General Internal Medicine 02/06/24
--- OUTSIDE RECORDS SUMMARY | 2024-07-02 10:25 | XMS_ITS | Encounter Summary ---
Author Organization [employer] Address [address] [facility] 7t [place] [address] Care Team Providers Care Distribution Estimator Name Role Phone Ana María Bryan MD Primary Care Provider + Encounter Details Date Type Department Care Team (Latest Contact Info) Description 01/29/2019 Abstract [facility] CONVERSIONS Dental, Provider, DDS Social History [...] Description 07/04/2024 11:30 AM EDT Office Visit [facility] MEDICINE [address] [place] [address] Ana María Bryan MD [address] [place] [address] documented as of this encounter Visit Diagnoses Not on filedocumented in this encounter Care Teams Distribution Estimator Relationship Specialty Start Date End Date Ana María Bryan MD [address] [place] [address] PCP - General Family Medicine 03/26/18 documented as of this encounter
--- OUTSIDE RECORDS SUMMARY | 2024-07-02 10:25 | XMS_ITS | Encounter Summary ---
Author Organization [employer] Address 75 [facility] 7t [place] [address] Care Team Providers Care Fitness Professional Name Role Phone Ana María Bryan MD Primary Care Provider + Encounter Details Date Type Department Care Team (Late st Contact Info) Description 03/17/2022 Orders Only [facility] [address] [place] [address] Dary Nuno MD [address] [place] [address] Acute deep vein thrombosis (DVT) of proximal [...] Description 07/04/2024 11:30 AM EDT Office Visit [facility] [address] [place] [address] Ana María Bryan MD [address] [place] [address] documented as of this encounter Visit Diagnoses Diagnosis Acute deep vein thrombosis (DVT) of proximal vein of right lower extremity (CMS/HCC)- Primary documented in this encounter Care Teams Fitness Professional Relationship Specialty Start Date End Date Ana María Bryan MD [address] [place] [address] PCP - General Family Medicine 03/26/18 documented as of this encounter
--- OUTSIDE RECORDS SUMMARY | 2024-07-02 10:25 | XMS_ITS | Clinical Summary ---
Author Organization [employer] Address [address] [facility] 7t [place] [address] Care Team Providers Care Air Defence Officer Name Role Phone Ana María Bryan MD [...] MEALS DIRECTED Active Lancets (OneTouch Delica Plus Geazef16K) [facility] TEST BLOOD SUGAR 4 TIMES A DAY [...] Active polyethylene glycol, PEG, 3350 (MiraLax Mix-In Bon Wier) 17 g packetIndications: Slow transit constipation Take 1 packet by mouth every day mixed with 8 oz water, juice, soda, coffee, or tea. 30 packet 023 Active glucose (Glutose) 40 % gel oral gelIndications:Typ e 2 diabetes mellitus with stage 3 chronic kidney disease, with long-term current use of insulin, unspecified whether stage 3a or 3b CKD (CMS/[facility]) TAKE 1/2 TUBE BY MOUTH NEEDED [...] unspecified whether stage 3a or 3b CKD ([facility]/HCC) TEST BLOOD SUGAR FOUR TIMES DAILY 100 strip 11 024 Active Molnupiravir 200 MG capsule Take 800 mg by mouth 2 times daily. Take 4 tabs (800 mg) po bid for 5 days. Kosovan label 40 capsule Active docusate sodium (Colace) [...] 90 tablet 1 Active Pentips Generic Pen [place] 32G X 4 MM misc USE FOUR [...] vs gastroparesis. r/o PUD. Refer to GI, [facility] does not accept patient's insurance. Will refer to [facility]. Counseled to drink herbal tea prior to [...] colonic polyp 03/24/2022 Overview (08/15/2023): Colonoscopy at [facility] on 03/15/22 (admitted due to rectal [...] at least until august and FU with poured concrete wall technician. We discussed avoid prolonged rest, ambulation with [...] mg daily. Jardiance held at admission. -Monitor tlxlr-yz-lwgx glucose with meals and nightly, and every [...] tolerated. FU in 3 months. F/u with lollypop machine operator Assessment & Plan (10/23/2022 5:09 PM EDT): [...] at goal. -She has follow up with Head Of Research & Insights next month. -Continue humalog sliding scale + [...] status post renal transplant - fu with azure architect - continue on Prograf + Mycophenolate Assessment [...] low dose lisinopril and fu with me solid waste facility supervisor in 3 weeks Check potassium next week. [...] she states she has never had an TX/stents or stroke and has never had any [...] Provider, Generic External Data 06/25/2024 Patient Outreach [facility] [address] [place] [address] Ijeoma Kaiser Pre-visit Planning 06/22/2024 Refill [facility] [address] [facility] [place] [address] Ana María Bryan MD Upper gastrointestinal bleeding 05/02/2024 Orders Only GENERIC EXTERNAL DATA DEPARTMENT Provider, Generic External Data 04/23/2024 Refill [facility] [address] [facility] [place] [address] Ana María Bryan MD Primary insomnia from Last 3 Months [...] your housing situation today? I have dominick sing 08/06/[address] you li [...] Description 07/04/2024 11:30 AM EDT Office Visit [facility] [address] [place] [address] Ana María Bryan MD [address] [place] [address] Health Maintenance Due Date Last Done Comments [...] WHOLE BLOOD Routine 05/02/2024 10:22 AM EST HEMOGLOBIN A1C Routine 04/02/2024 11:35 AM EST LIPID PANEL WITH REFLEX TO DIRECT LDL Routine 01/01/2024 10:37 AM EDT Type 2 diabetes mellitus with stage 3 chronic kidney disease, with long-term current use of insulin, unspecified whether stage 3a or 3b CKD ([facility]) HM COLONOSCOPY Routine 09/16/2019 3:11 PM EDT from Last 3 Months or Most Recently Relevant to Health Maintenance Results * Glucose, Whole Blood (06/30/2024 1:37 PM EDT) Only the most recent of2 resultswithin the time period is included. Glucose, Whole Blood 97 60 - 115 mg/dL [facility] Comment:METER #: [id number] Testing performed in the Endocrinology Department [address] , [address], [facility]. 06/30/2024 1:37 PM EDT 06/30/2024 1:40 PM EDT us Generic External Data Provider LAB BLOOD ORDERAB LES Final Result [facility] [address] [place], [place] [phone] * (ABNORMAL) Hemoglobin A1c (04/02/2024 11:35 AM EST) Hemoglobin A1c 7.5(H) <6.0 % [facility] Comment:Hemoglobin A1C Refer ence Range Adults: 4.8 - 6.0 % Non diabetic: < 6.0 % Goal: < 7.0 %Additional Action Suggested: > 8.0 %Note: Hemoglobin A1c results are invalid for patients with abnormal amounts of HbF. Blood transfusions may impact the HbA1c concentration in the patient sample. Estimated Average Glucose 169 mg/dL [facility] Comment:eAG = Estimated ave rage glucose which is %A1C expressed asaverage glucose, using the formula of the X7E-MclgvajXluahfo Glucose study (ADAG), Diabetes Care, Vol.31,#8,Oct. 2007 04/02/2024 11:3 5 AM EST 04/02/2024 11:35 AM EST us Generic External Data Provider LAB BLOOD ORDERAB LES Final Result [facility] [address] [place] [phone] * Lipid Panel with Reflex to Direct LDL (01/01/2024 10:37 AM EDT) Triglycerides 97 <150 mg/dL [facility] Comment:Desirable Triglyceri de: less than 150 mg/dLBorderline High Triglyceride 150-199 mg/dLHigh Triglyceride: 200-499 mg/dLVery High Triglyceride: greater than or equal to 5OO mg/dL Cholesterol 138 <200 mg/dL [facility] Comment:Desirable Cholestero l: less than 200 mg/dLBorderline High Cholesterol: 200-239 mg/dLHigh Cholesterol: greater than 239 mg/dL LDL Cholesterol Calculated 61 <100 mg/dL [facility] Comment:Desirable LDL: less than 100 mg/dLNear Optimal/Above Optimal LDL: 110- 129 mg/dLBorderline High LDL: 130-159 mg/dLHigh LDL: 160-189 mg/dLVery High LDL: greater than or equal to 190 mg/dL HDL Cholesterol 58 >40 mg/dL [facility] Comment:Desirable HDL: great er than 40 mg/dL Note: This HDL assay may give artificially low results in patients with liver disease. Blood 01/01/2024 10:3 7 AM EDT 01/01/2024 11:26 AM EDT Ana María Bryan MD LAB BLOOD ORDERABLES Fin al Result [facility] [address] [place] [phone] [phone] * Hm Colonoscopy (09/16/2019 3:11 PM EDT) Colonoscopy Normal Normal Narrative Bea Mix - 09/16/2019 3:11 PM EDT Recommended 3 year follow up Historical Provider HEALTH MAINTENANCE Edited Result - Final from Last 3 Months or Most Recently Relevant to Health Maintenance Insurance [facility] C3 Member Subscriber Plan / Payer (Ef fective 2022-Present) Name:Sofiya Julian Relation to Subscriber:Self Name:Sofiya Julian Payer ID:Not on file Group ID:Not on file Type:Medicaid Address: [facility] [id number] [place] [id number] [place], [place] [address] Care Teams Air Defence Officer Relationship Specialty Start Date End Date Ana María Bryan MD [address] [place] [address] PCP - General Family Medicine 03/26/18
--- OUTSIDE RECORDS SUMMARY | 2024-07-02 10:25 | XMS_ITS | Encounter Summary ---
Author Organization [employer] Address 75 [facility] 7t [place] [address] Care Team Providers Care Medical Detail Representative Name Role Phone Ana María Bryan MD Primary Care Provider + Encounter Details Date Type Department Care Team (Late Contact Info) Description 09/12/2022 Abstract [facility] MEDICINE [address] [place] [phone] Ana María Bryan MD [address] [place] [address] Social History Tobacco Use Types Packs/Day Years [...] Description 07/04/2024 11:30 AM EDT Office Visit [facility] [address] [place] [address] Ana María Bryan MD [address] [place] [address] documented as of this encounter Procedures Procedure [...] documented as of this encounter Care Teams Medical Detail Representative Relationship Specialty Start Date End Date Ana María Bryan MD [address] [place] [address] PCP - General Family Medicine 03/26/18 documented as of this encounter
--- OUTSIDE RECORDS SUMMARY | 2024-07-02 10:25 | XMS_ITS | Encounter Summary ---
Author Organization [employer] Address 75 [facility] 7t [place] [address] Care Team Providers Care Station Master Name Role Phone Ana María Bryan MD Primary Care Provider + Reason for Visit * Reason Comments Med Refill Encounter Details Date Type Department Care Team (Late st Contact Info) Description 11/21/2022 Refill [facility] [address] [place] [address] Ana María Bryan MD [address] [place], [place] [phone] Type 2 diabetes mellitus with stage 3 [...] Description 07/04/2024 11:30 AM EDT Office Visit [facility] [address] [place] [address] Ana María Bryan MD [address] [place] [address] documented as of this encounter Visit Diagnoses Diagnosis Type 2 diabetes mellitus with stage 3 chronic kidney disease, with long-term current use of insulin, unspecified whether stage 3a or 3b CKD (CMS/HCC) documented in this encounter Additional Health Concerns Assessment Noted Time PHQ-9 Depression Total Score: 1 04/13/19 23 10:26 AM EST documented as of this encounter Care Teams Station Master Relationship Specialty Start Date End Date Ana María Bryan MD [address] [place] [address] PCP - General Family Medicine 03/26/18 documented as of this encounter
--- OUTSIDE RECORDS SUMMARY | 2024-07-02 10:25 | XMS_ITS | Encounter Summary ---
Author Organization [facility] Address [address] [address] Phone Care Team Providers Care Center Hole Reamer Name Role Phone Ana María Bryan MD Primary Care Provider Encounter Details Date Type Department Care Team (Late Contact Info) Description 06/24/2024 Orders Only [facility] [address] [phone] Bruce Galarza MD [facility] [address] Kidney transplant status; Renal disorder [...] Office Visit [facility] [address] [address] Bruce Galarza MD [address] [address] documented as of this encounter Visit Diagnoses Diagnosis Kidney transplant status Renal disorder due to type 2 diabetes mellitus <Other diabetic kidney complication> (HCC) documented in this encounter Care Teams Center Hole Reamer Relationship Specialty Start Date End Date Ana María Bryan MD [address] [place] [phone] PCP - General 04/05/20 documented as of this encounter
--- OUTSIDE RECORDS SUMMARY | 2024-07-02 10:25 | XMS_ITS | Clinical Summary ---
Author Organization [facility] Address [address] [place] [phone] Phone Care Team Providers Care Sales Activity Manager Name Role Phone Ana María Bryan MD Primary Care Provider [phone] Allergies Active Allergy Reactions Criticality Noted Date [...] misc 1 Active Lancets (OneTouch Delica Plus [id number]) misc TEST BLOOD SUGAR 4 TIMES A [...] mg daily. Jardiance held at admission. -Monitor xocwq-ug-rcae glucose with meals and nightly, and every [...] tolerated. FU in 3 months. F/u with oxygen tank filler Type 2 diabetes mellitus without complication Overview [...] 06/24/2024 Orders Only [facility] [address] [facility] [address] [place] [phone] Bruce Galarza MD Kidney transplant status; Renal disorder due to type 2 diabetes mellitus <Other diabetic kidney complication> (HCC) 06/23/2024 Refill [facility] [address] [place] [phone] Sloane Bonner [place] Proteinuria, not otherwise specified 06/20/2024 10:45 AM EDT Office Visit [facility] [place] [phone] [phone] Bruce Galarza MD Kidney transplant status (Primary [...] Office Visit [facility] [address]. [address] [address] Bruce Galarza MD [address] [address] Health Maintenance Due Date Last [...] Urine >30(A) 0 - 5 /hpf [facility] RBC, Urine None seen 0 - 2 /hpf [facility] Squamous Epithelial, Urine 0-10 0 - 10 /hpf [facility] Casts None seen None seen /lpf [facility] Bacteria, Urine Many(A) None seen/Few [facility] 06/10/2024 10:4 5 AM EDT 06/10/2024 us Bruce Galarza MD LAB MICROBIOLOGY - GENERAL OR DERABLES Final Result [facility] [address] [place] [address] * Tacrolimus level (06/10/2024 10:45 AM EDT) Tacrolimus Lvl 7.3 5.0 - 20.0 ng/mL [facility] Comment: Target steady state trough concentration for [...] [facility] - 06/12/2024 7:05 PM EDT Test(s) 771594-[id number] (FK506), Blood was developed and its performance characteristics determined by [employer]. It has not been cleared or approved by the Food and Drug Administration. Bruce Galarza MD LAB BLOOD ORDERABLES Final Re sult Performing Organization Address City/[facility]/ZIP Co de Phone Number [facility] [address] [place] [address] * (ABNORMAL) Protein, Total, Random Urine w/Creatinine (Protein/Creat Ratio) (06/10/2024 10:45 AM EDT) Creatinine, Ur 73.9 Not Estab. mg/dL [facility] Protein, Ur 17.6 Not Estab. mg/dL [facility] Protein/Creati nine Ratio 238(H) 0 - 200 mg/g creat [facility] 06/10/2024 10:4 5 AM EDT 06/10/2024 Bruce Galarza MD LAB URINE ORDERABLES Final Re sult Performing Organization Address City/[facility]/ZIP Co de Phone Number [facility] [address] [place] [address] * (ABNORMAL) Urine Albumin / Creatinine Ratio (06/10/2024 10:45 AM EDT) Pathologist [facility] Albumin, Urine 35.6 Not Estab. ug/mL [facility] Albumin/Creatin ine Ratio 48(H) 0 - 29 mg/g creat [facility] Comment: ? Normal: ?0 - ??29 ? Moderately increased: 30 - 300 ? Severely increased: ? >300 06/10/2024 10:4 5 AM EDT 06/10/2024 us Bruce Galarza MD LAB URINE ORDERABLES Final Re sult [facility] [address] [place] [address] * (ABNORMAL) Urinalysis with microscopic (06/10/2024 10:45 AM EDT) Pathologist [facility] Specific [place], Urine 1.023 1.005 - 1.030 [facility] pH Urine 5.5 5.0 - 7.5 [facility] Color, Urine Yellow Yellow [facility] Appearance Urine Clear Clear [facility] WBC Esterase Urine 2+(A) Negative [facility] Protein, Ur Trace Negative/Tr mindy [facility] [phone] Glucose, Ur 3+(A) Negative [facility] Ketones, Urine Negative Negative [facility] [phone] Blood Urine Negative Negative [facility] Bilirubin Urine Negative Negative [facility] Urobilinogen Urine 0.2 0.2 - 1.0 mg/dL [facility] Nitrite, Urine Positive(A) Negative [facility] Microscopic Examination See below: [facility] [phone] Comment:Microscopic was rachell cated and was performed. 06/10/2024 10:4 5 AM EDT 06/10/2024 us Bruce Galarza MD LAB URINE ORDERABLES Final Re sult [facility] [address] [place] [address] * (ABNORMAL) Renal Function Panel (06/10/2024 10:45 AM EDT) Glucose 95 70 - 99 mg/dL [facility] BUN 40(H) 8 - 27 mg/dL [facility] Creatinine 1.20(H) 0.57 - 1.00 mg/dL [facility] eGFR CKD-EPI CR 2020 47(L) >59 mL/min/1.7 3 [facility] BUN/Creatinine Ratio 33(H) 12 - 28 [facility] Sodium 142 134 - 144 mmol/L [facility] Potassium 4.4 3.5 - 5.2 mmol/L [facility] Chloride 102 96 - 106 mmol/L [facility] Bicarbonate (CO2) 24 20 - 29 mmol/L [facility] Calcium 10.3 8.7 - 10.3 mg/dL [facility] Albumin 4.3 3.8 - 4.8 g/dL [facility] Phosphorus 4.2 3.0 - 4.3 mg/dL [facility] 06/10/2024 10:4 5 AM EDT 06/10/2024 Bruce Galarza MD LAB BLOOD ORDERABLES Final Re sult Performing Organization Address City/[facility]/ZIP Co de Phone Number [facility] [address] [place] [address] * (ABNORMAL) Hemoglobin A1c (05/31/2022 10:19 AM EST) Hemoglobin A1C 6.8(H) (4.0-5.6) % [facility] Comment: MONITORING: In known diabetic patients, hemoglobin A1c targets should be discussed with health care provider. DIAGNOSTIC USE: ??The [place] Diabetes Association (ADA) and the World Health [...] Supplement 1 Testing performed or reported by [facility], a Service of [facility], [address] [place] [address] Carlene Prasad MD, Education Adviser [facility]# [id number] Blood (Blood, Venous) 05/31/2022 10:19 AM EST 05/31/2022 10:20 AM EST Olivia Trujillo MD LAB BLOOD ORDERABLES Final Resu lt Performing Organization Address City/[facility]/ZIP Co de Phone Number [facility] from Last 3 Months or Most Recently Relevant to Health Maintenance Insurance DUAL MCR/PAUL ([id number]) [place] DUAL MCR/PAUL ([id number]) Care Teams Sales Activity Manager Relationship Specialty Start Date End Date Ana María Bryan MD [address] [place] [address] PCP - General 04/05/20
--- OUTSIDE RECORDS SUMMARY | 2024-07-02 10:25 | XMS_ITS | Clinical Summary ---
Author Organization [facility] Address [address] [place] [address] Care Team Providers Care Admission Discharge Rn Name Role Phone Pcp, No Primary Care [...] age to complete this topic Care Teams Admission Discharge Rn Relationship Specialty Start Date End Date Pcp, No [address] [place] [address] PCP - General 12/17/19
--- OUTSIDE RECORDS SUMMARY | 2024-07-02 10:25 | XMS_ITS | Encounter Summary ---
Author Organization [employer] Address 75 [facility] 7t [place] [address] Care Team Providers Care Search Advertising Strategist Name Role Phone Ana María Bryan MD [...] t he electric, gas, oil or water [employer] threatened to shut off services in your [...] Description 07/04/2024 11:30 AM EDT Office Visit [facility] [address] [place] [address] Ana María Bryan MD [address] [place] [address] documented as of this encounter Procedures Procedure Name Priority Date/Time Associated Diagnosis Comments GLUCOSE, WHOLE BLOOD Routine 06/30/2024 1:37 PM EDT documented in this encounter Results * Glucose, Whole Blood (06/30/2024 1:37 PM EDT) Glucose, Whole Blood 97 60 - 115 mg/dL [facility] Comment:METER #: [id number] Testing performed in the Endocrinology Department [address] , [address], [facility]. 06/30/2024 1:37 PM EDT 06/30/2024 1:40 PM EDT us Generic External Data Provider LAB BLOOD ORDERAB LES Final Result [facility] [address] [place] [address] [phone] documented in this encounter Visit Diagnoses Not on filedocumented in this encounter Additional Health Concerns Assessment Noted Time PHQ-9 Depression Total Score: 1 04/13/19 23 10:26 AM EST documented as of this encounter Care Teams Search Advertising Strategist Relationship Specialty Start Date End Date Ana María Bryan MD [address] [place] [address] PCP - General Family Medicine 03/26/18 documented as of this encounter
--- OUTSIDE RECORDS SUMMARY | 2024-07-02 10:25 | XMS_ITS | Encounter Summary ---
Author Organization [employer] Address 75 [facility] 7t [place] [address] Care Team Providers Care Cable Tester Name Role Phone Ana María Bryan MD Primary Care Provider + Encounter Details Date Type Department Care Team (Late Contact Info) Description 05/08/2022 [facility] Management [address] [place] [address] Ana María Bryan MD [address] [place] [address] Social History Tobacco Use Types Packs/Day Years [...] Description 07/04/2024 11:30 [address] EDT [address] [facility] [address] [place] [address] Ana María Bryan MD [address] [place] [address] documented as of this encounter Visit Diagnoses Not on filedocumented in this encounter Additional Health Concerns Assessment Noted Time PHQ-9 Depression Total Score: 1 04/13/19 23 10:26 AM EST documented as of this encounter Care Teams Cable Tester Relationship Specialty Start Date End Date Ana María [place] MD [address] [place] [address] PCP - General Family Medicine 03/26/18 documented as of this encounter
--- OUTSIDE RECORDS SUMMARY | 2024-07-02 10:25 | XMS_ITS | Encounter Summary ---
Author Organization [employer] Address [address] [facility] 7t [place] [address] Care Team Providers Care Pin Attacher Name Role Phone Ana María Bryan MD Primary Care Provider + Encounter Details Date Type Department Care Team (Late st Contact Info) Description 05/11/2022 Orders Only [facility] [address] [place] [address] Vandana Ledesma DO [address] [place], [place] [phone] Social History Tobacco Use Types Packs/Day Years [...] Description 07/04/2024 11:30 AM EDT Office Visit [facility] [address] [place] [address] Ana María Bryan MD [address] [place] [address] documented as of this encounter Visit Diagnoses Not on filedocumented in this encounter Additional Health Concerns Assessment Noted Time PHQ-9 Depression Total Score: 1 04/13/19 23 10:26 AM EST documented as of this encounter Care Teams Pin Attacher Relationship Specialty Start Date End Date Ana María Bryan MD [address] [place] [address] PCP - General Family Medicine 03/26/18 documented as of this encounter
[2024-07-02 10:52] LABS: Estimated Average Glucose 177 mg/dL; Hemoglobin A1C 241.4499 umol/L; Hemoglobin A1c % 7.8 % (<6.0); Total Hemoglobin (HGBA1C) 3937.8023 umol/L
[2024-07-02 11:18] LABS: Parathyroid Hormone Intact 176.6 pg/mL (8.7-77.1)
[2024-07-02 11:19] LABS: Anion Gap 14 (12-20); Blood Urea Nitrogen 33 mg/dL (9-16); Calcium 9.7 mg/dL (8.4-10.2); Carbon Dioxide 24 mmol/L (22-29); Chloride 106 mmol/L (96-108); Estimated Glomerular Filt Rate 55; Glucose Random 77 mg/dL (60-115); Potassium 4.1 mmol/L (3.3-5.1); Sodium 140 mmol/L (135-145)
[2024-07-02 11:39] LABS: Vitamin D 25-OH Total 44.8 ng/mL (>30)
== END 2024-07-02 09:36 | disposition home or self-care (01) ==
LOC: HO.LAB 09:35
PROVIDERS: Internal Medicine Endocrinology, Diabetes & Metabolism; PCP Internal Medicine; Visit Provider Physician Assistant
DX: M81.0 Age-related osteoporosis without current pathological fracture (principal); R73.01 Impaired fasting glucose; E11.65 Type 2 diabetes mellitus with hyperglycemia; E11.21 Type 2 diabetes mellitus with diabetic nephropathy
CPT/HCPCS: 36415; 80048; 82040; 82306; 83036; 83970

== ENCOUNTER 2024-07-04 11:29 | Outpatient (REF) | payer OTHER, SELFPAY ==
[2024-07-04 11:54] LABS: Total Volume 24 Hour Urine 2425 mL
[2024-07-04 12:23] LABS: Creatinine, 24Hr Urine 0.7 G/Day (1.0-2.0); Creatinine, mg/dL 30.49
--- OUTSIDE RECORDS SUMMARY | 2024-07-04 12:31 | XMS_ITS | Encounter Summary ---
Author Organization [employer] Address 75 [facility] 7t [place] [address] Care Team Providers Care Assembler Plastic Boat Name Role Phone Ana María Bryan MD Primary Care Provider + Encounter Details Date Type Department Care Team (Latest Contact Info) Description 05/25/2021 Abstract [facility] CONVERSIONS Dental, Provider, DDS Social History Tobacco [...] on filedocumented in this encounter Care Teams Assembler Plastic Boat Relationship Specialty Start Date End Date Ana María Bryan MD [address] [place] [address] PCP - General Family Medicine 03/26/18 documented as of this encounter
--- OUTSIDE RECORDS SUMMARY | 2024-07-04 12:31 | XMS_ITS | Clinical Summary ---
Author Organization [facility] Address [address] [place] [phone] Phone Care Team Providers Care Thermoforming Machine Operator Name Role Phone Ana María Bryan MD Primary Care Provider Allergies Active Allergy Reactions Criticality Noted Date [...] misc 1 Active Lancets (OneTouch Delica Plus [id number]) misc TEST BLOOD SUGAR 4 TIMES A [...] mg daily. Jardiance held at admission. -Monitor gbwxx-md-cmui glucose with meals and nightly, and every [...] tolerated. FU in 3 months. 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) 06/23/2024 Refill [facility] [address] [place] [phone] Sloane Bonner MA Proteinuria, not otherwise specified 06/20/2024 10:45 AM EDT Office Visit [facility] [place] [phone] [phone] Bruce Galarza MD Kidney transplant status (Primary Dx); 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 [address] [phone] Bruce Galarza MD [address] [phone] Health Maintenance Due Date Last [...] 02/23/2018, 12/21/2017, Additional history exists Pneumococcal Vaccine: 50+ Years Completed 05/07/2018, 03/09/2017 Hepatitis B Vaccine [...] Urine >30(A) 0 - 5 /hpf [facility] RBC, Urine None seen 0 - 2 /hpf [facility] Squamous Epithelial, Urine 0-10 0 - 10 /hpf [facility] Casts None seen None seen /lpf [facility] Bacteria, Urine Many(A) None seen/Few [facility] 06/10/2024 10:4 5 AM EDT 06/10/2024 us Bruce Galarza MD LAB MICROBIOLOGY - GENERAL OR DERABLES Final Result [facility] [address] [place] [phone] * Tacrolimus level (06/10/2024 10:45 AM EDT) Tacrolimus Lvl 7.3 5.0 - 20.0 ng/mL [facility] Comment: Target steady state trough concentration for [...] [facility] - 06/12/2024 7:05 PM EDT Test(s) [id number] (FK506), Blood was developed and its performance characteristics determined by [employer]. It has not been cleared or approved by the Food and Drug Administration. Bruce Galarza MD LAB BLOOD ORDERABLES Final Re sult Performing Organization Address City/[facility]/ZIP Co de Phone Number [facility] [address] [place] [address] * (ABNORMAL) Protein, Total, Random Urine w/Creatinine (Protein/Creat Ratio) (06/10/2024 10:45 AM EDT) Creatinine, Ur 73.9 Not Estab. mg/dL [facility] Protein, Ur 17.6 Not Estab. mg/dL [facility] U[facility] Protein/Creati nine Ratio 238(H) 0 - 200 mg/g creat [facility] [place] 06/10/2024 10:4 5 AM EDT 06/10/2024 Bruce Galarza MD LAB URINE ORDERABLES Final Re sult Performing Organization Address City/[facility]/ZIP Co de Phone Number [facility] [address] [place] [address] * (ABNORMAL) Urine Albumin / Creatinine Ratio (06/10/2024 10:45 AM EDT) Pathologist [facility] Albumin, Urine 35.6 Not Estab. ug/mL [facility] Albumin/Creatin ine Ratio 48(H) 0 - 29 mg/g creat [facility] Comment: ? Normal: ?0 - ??29 ? Moderately increased: 30 - 300 ? Severely increased: ? >300 06/10/2024 10:4 5 AM EDT 06/10/2024 us Bruce Galarza MD LAB URINE ORDERABLES Final Re sult [facility] [address] [place] [address] * (ABNORMAL) Urinalysis with microscopic (06/10/2024 10:45 AM EDT) Pathologist [facility] Specific [place], Urine 1.023 1.005 - 1.030 [facility] [phone] pH Urine 5.5 5.0 - 7.5 [facility] Color, Urine Yellow Yellow [facility] Appearance Urine Clear Clear [facility] [place] WBC Esterase Urine 2+(A) Negative [facility] Protein, Ur Trace Negative/Tr mindy [facility] Glucose, Ur 3+(A) Negative [facility] Ketones, Urine Negative Negative [facility] [place] [phone] Blood Urine Negative Negative [facility] [phone] Bilirubin Urine Negative Negative [facility] [place] Urobilinogen Urine 0.2 0.2 - 1.0 mg/dL [facility] Nitrite, Urine Positive(A) Negative [facility] [place] Microscopic Examination See below: [facility] [phone] Comment:Microscopic was rachell cated and was performed. 06/10/2024 10:4 5 AM EDT 06/10/2024 us Bruce Galarza MD LAB URINE ORDERABLES Final Re sult [facility] [address] [place] [address] * (ABNORMAL) Renal Function Panel (06/10/2024 10:45 AM EDT) Glucose 95 70 - 99 mg/dL [facility] BUN 40(H) 8 - 27 mg/dL [facility] Creatinine 1.20(H) 0.57 - 1.00 mg/dL [facility] eGFR CKD-EPI CR 2020 47(L) >59 mL/min/1.7 3 [facility] BUN/Creatinine Ratio 33(H) 12 - 28 [facility] Sodium 142 134 - 144 mmol/L [facility] Potassium 4.4 3.5 - 5.2 mmol/L [facility] Chloride 102 96 - 106 mmol/L [facility] Bicarbonate (CO2) 24 20 - 29 mmol/L [facility] Calcium 10.3 8.7 - 10.3 mg/dL [facility] Albumin 4.3 3.8 - 4.8 g/dL [facility] Phosphorus 4.2 3.0 - 4.3 mg/dL [facility] 06/10/2024 10:4 5 AM EDT 06/10/2024 Bruce Galarza MD LAB BLOOD ORDERABLES Final Re sult Performing Organization Address City/[facility]/ZIP Co de Phone Number [facility] [address] [place] [phone] * (ABNORMAL) Hemoglobin A1c (05/31/2022 10:19 AM EST) Hemoglobin A1C 6.8(H) (4.0-5.6) % [facility] Comment: MONITORING: In known diabetic patients, hemoglobin A1c targets should be discussed with health care provider. DIAGNOSTIC USE: ??The [place] Diabetes Association (ADA) and the World Health [...] Supplement 1 Testing performed or reported by [facility], a Service of [facility], [address] [place] [address] Carlene Prasad MD, Urgent Care Technician [facility]# [id number] Blood (Blood, Venous) 05/31/2022 10:19 AM EST 05/31/2022 10:20 AM EST Olivia Trujillo MD LAB BLOOD ORDERABLES Final Resu lt Performing Organization Address City/[facility]/ZIP Co de Phone Number [facility] from Last 3 Months or Most Recently Relevant to Health Maintenance Insurance Dual MCR/PAUL ([id number]) [employer] Dual MCR/PAUL ([id number]) Care Teams Thermoforming Machine Operator Relationship Specialty Start Date End Date Ana María Bryan MD [address] [place] [phone] PCP - General 04/05/20
--- OUTSIDE RECORDS SUMMARY | 2024-07-04 12:31 | XMS_ITS | Encounter Summary ---
Author Organization [employer] Address [address] [facility] [address]t [place] [address] Care Team Providers Care Director Of Outpatient Services Name Role Phone Ana María Bryan MD [...] t he electric, gas, oil or water [employer] threatened to shut off services in your [...] Whole Blood 97 60 - 115 mg/dL [facility] Comment:METER #: [id number] Testing performed in the Endocrinology Department [address], [address], [facility]. 06/30/2024 1:37 PM EDT 06/30/2024 1:40 PM EDT us Generic External Data Provider LAB BLOOD ORDERAB LES Final Result [facility] [address] [place] [phone] documented in this encounter Visit Diagnoses Not on filedocumented in this encounter Additional Health Concerns Assessment Noted Time PHQ-9 Depression Total Score: 1 04/13/19 23 10:26 AM EST documented as of this encounter Care Teams Director Of Outpatient Services Relationship Specialty Start Date End Date Ana María Bryan MD [address] [place] [phone] PCP - General Family Medicine 03/26/18 documented as of this encounter
--- OUTSIDE RECORDS SUMMARY | 2024-07-04 12:31 | XMS_ITS | Encounter Summary ---
Author Organization [employer] Address [address] [facility] [address]t [place] [address] Care Team Providers Care Building Principal Name Role Phone Ana María Bryan MD Primary Care Provider + Encounter Details Date Type Department Care Team (Latest Contact Info) Description 01/29/2019 Abstract [facility] CONVERSIONS Dental, Provider, DDS Social History [...] on filedocumented in this encounter Care Teams Building Principal Relationship Specialty Start Date End Date Ana María Bryan MD [address] [place] [address] PCP - General Family Medicine 03/26/18 documented as of this encounter
--- OUTSIDE RECORDS SUMMARY | 2024-07-04 12:31 | XMS_ITS | Encounter Summary ---
Author Organization [employer] Address [address] [facility] [address]t [place] [address] Care Team Providers Care Veneer Jointer Returner Name Role Phone Ana María Bryan MD Primary Care Provider + Reason for Visit * Reason Onset Date Comments Chart prep 07/02/2024 Encounter Details Date Type Department Care Team ([facility] st Contact Info) Description 07/02/2024 Telephone [facility] [address] [place] [address] Ana María Bryan MD [address] [place] [address] Chart prep Social History Tobacco Use Types Packs/Day Years [...] AM EST documented as of this encounter Miscellaneous Notes * Telephone Encounter - Bisi Nelson MA - 07/02/2024 10:57 AM EDT Chart Prep Labs: done Images: done Vaccines due: yes Referrals: appointment pending Screenings: colonoscopy Overdue care gaps: Glucose documented in this encounter Plan of Treatment Not on file documented as of this encounter Visit Diagnoses Not on filedocumented in this encounter Additional Health Concerns Assessment Noted Time PHQ-9 Depression Total Score: 1 04/13/19 23 10:26 AM EST documented as of this encounter Care Teams Veneer Jointer Returner Relationship Specialty Start Date End Date Ana María Bryan MD [address] [place] [phone] PCP - General Family Medicine 03/26/18 documented as of this encounter
--- OUTSIDE RECORDS SUMMARY | 2024-07-04 12:31 | XMS_ITS | Clinical Summary ---
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, CMS/HCC V28) (Primary Dx); Arthritis of both feet; Left [...] Care Team (Late st Contact Info) Description 07/22/2024 10:15 AM EDT Office Visit Orthopedic [place] [phone] [phone] Chris Urrutia DPM [address] [phone] Health Maintenance Due Date Last Done Comments [...] to the tarsal and metatarsal midfoot joints Chris Urrutia DPM IMG XR PROCEDURES Final Res ult from Last 3 Months Insurance [address] [place] [address] [facility] Care Teams Nickel Operator Relationship Specialty Start Date End Date Ana María Bryan MD [address] [place] [phone] PCP - General Internal Medicine 02/06/24
--- OUTSIDE RECORDS SUMMARY | 2024-07-04 12:31 | XMS_ITS | Encounter Summary ---
Author Organization [employer] Address [address] [facility] [address] [place] [address] Care Team Providers Care Sanitizer Name Role Phone Ana María Bryan MD Primary Care Provider + Reason for Visit * Reason Comments Med Refill Encounter Details Date Type Department Care Team ([facility] st Contact Info) Description 11/21/2022 Refill [facility] [address] [place], [place] [phone] Ana María Bryan MD [address] [place], [place] [phone] Type 2 diabetes mellitus with stage 3 [...] documented as of this encounter Care Teams Sanitizer Relationship Specialty Start Date End Date Ana María Bryan MD [address] [place] [phone] PCP - General Family Medicine 03/26/18 documented as of this encounter
--- OUTSIDE RECORDS SUMMARY | 2024-07-04 12:31 | XMS_ITS | Clinical Summary ---
Author Organization [employer] Address [address] [facility] 7t [place] [address] Care Team Providers Care Secondary Special Education Teacher Name Role Phone Ana María Bryan MD Primary Care Provider + Allergies Active Allergy Reactions Criticality Noted Date Comments Diphenhydramine Unknown 08/18/2016 Other reaction(s): Other (see comments) feeling of panic Medications Aspirin Low Dose 81 MG EC tablet [...] upper arm, upper thigh or abdomen Active Lantus SoloStar 100 UNIT/ML pen INJECT 10 UNITS SUBCUTANEOUSLY EVERY EVENING Active HumaLOG KWIKPEN 100 UNIT/ML injection INJECT 2-5 UNITS SUBCUTANEOUSLY THREE TIMES DAILY BEFORE MEALS DIRECTED Active Lancets (OneTouch Delica Plus [id number]) [facility] TEST BLOOD SUGAR 4 TIMES A DAY Active mycophenolate (Myfortic) 180 MG EC tablet [...] Active polyethylene glycol, PEG, 3350 (MiraLax Mix-In [place]) 17 g packetIndications: Slow transit constipation Take 1 packet by mouth every day mixed with 8 oz water, juice, soda, coffee, or tea. 30 packet 023 Active glucose (Glutose) 40 % gel oral gelIndications:Typ e 2 diabetes mellitus with stage 3 chronic kidney disease, with long-term current use of insulin, unspecified whether stage 3a or 3b CKD (CMS/[facility]) TAKE 1/2 TUBE BY MOUTH NEEDED HYPOGLYCEMIA DIRECTED 30 g 5 023 Active lisinopril 2.5 MG tablet TAKE 1 TABLET BY MOUTH EVERY MORNING 90 tablet 1 023 Active OneTouch Ultra Test test stripIndications:T ype 2 diabetes mellitus with stage 3 chronic kidney disease, with long-term current use of insulin, unspecified whether stage 3a or 3b CKD (CMS/[facility]) TEST BLOOD SUGAR FOUR TIMES DAILY 100 strip 11 024 Active Molnupiravir 200 MG capsule Take 800 mg by mouth 2 times daily. Take 4 tabs (800 mg) po bid for 5 days. Bengali label 40 capsule 024 Active docusate sodium (Colace) 100 MG capsule [...] tablet 1 024 Active Pentips Generic Pen [place] 32G X 4 MM misc USE FOUR TIMES DAILY DIRECTED 100 each 5 024 Active traZODone (Desyrel) 100 MG tablet TAKE 1 TABLET BY MOUTH TWICE DAILY IN THE MORNING AND AT BEDTIME AFTER MEALS 60 tablet 3 025 Active melatonin 5 MG tabletIndications: Primary insomnia TAKE 1 TABLET BY MOUTH AT BEDTIME 90 tablet 025 Active gabapentin (Neurontin) 100 MG capsule TAKE 1 CAPSULE BY MOUTH AT BEDTIME 90 capsule 1 025 Active pantoprazole (ProtoNix) 40 MG EC tabletIndications: Upper gastrointestinal bleeding TAKE 1 TABLET BY MOUTH TWICE DAILY IN THE MORNING AND IN THE EVENING 180 tablet 025 Active Acetaminophen Extra Strength 500 MG tablet 1 tab po tid prn pain/fever/TRAVIS 60 tablet 025 Active fluticasone (Flonase) 50 MCG/ACT nasal sprayIndications:S easonal allergic rhinitis due to other allergic trigger Use 1-2 sprays in each nostril every day as needed 48 g 025 Active Acetaminophen Extra Strength 500 MG tablet TAKE 1 TO 2 TABLETS BY MOUTH EVERY MORNING THEN TAKE 1 TABLET BY MOUTH EVERY 8 HOURS NEEDED FOR PAIN OR FOR FEVER 022 07/04 Discontinued( Reorder (will not trigger notification to Pharmacy)) Jardiance 25 MG TAKE 1 TABLET BY MOUTH EVERY MORNING 022 07/04 Discontinued( Side effects) fluticasone (Flonase) 50 MCG/ACT nasal sprayIndications:S easonal allergic rhinitis due to other allergic trigger USE 1-2 SPRAYS IN EACH NOSTRIL EVERY DAY NEEDED 48 g 023 07/04 Discontinued( Reorder (will not trigger notification to Pharmacy)) gabapentin (Neurontin) 100 MG capsule TAKE 1 CAPSULE BY MOUTH AT BEDTIME 90 capsule 1 024 06/23 Discontinued pantoprazole (ProtoNix) 40 MG EC tabletIndications: Upper gastrointestinal bleeding TAKE 1 TABLET BY MOUTH TWICE DAILY IN THE MORNING AND IN THE EVENING 180 tablet 024 06/23 Discontinued pantoprazole (ProtoNix) 40 MG [...] vs gastroparesis. r/o PUD. Refer to GI, [facility] does not accept patient's insurance. Will refer to [facility]. Counseled to drink herbal tea prior to [...] colonic polyp 03/24/2022 Overview (08/15/2023): Colonoscopy at 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 We discussed avoid prolonged rest, ambulation with [...] mg daily. Jardiance held at admission. -Monitor [id number] glucose with meals and nightly, and every [...] tolerated. FU in 3 months. 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 -She has follow up with Assistant Administrator next month. 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 [...] she states she has never had an PA/stents or stroke and has never had any [...] Encounters Date Type Department Care Team Description 07/04/2024 11:30 AM EDT Office Visit [facility] MEDICINE [address] [place] [phone] Ana María Bryan MD Type 2 diabetes mellitus with stage 3 chronic kidney disease, with long-term current use of insulin, unspecified whether stage 3a or 3b CKD ([facility]); Flu-like symptoms; Seasonal allergic rhinitis due to other allergic trigger 07/04/2024 Travel 07/02/[address] [address] Ana María Bryan MD Chart prep 07/02/2024 Orders Only GENERIC EXTERNAL DATA DEPARTMENT Provider, Generic External Data 06/30/2024 Orders Only GENERIC EXTERNAL DATA DEPARTMENT Provider, Generic External Data 06/25/2024 Patient Outreach [address] [address] Ijeoma Kaiser Pre-visit Planning 06/22/[address] [address] Ana María Bryan MD Upper gastrointestinal bleeding 05/02/2024 Orders Only GENERIC EXTERNAL DATA DEPARTMENT Provider, Generic External Data 04/23/[address] [address] Ana María Bryan MD Primary insomnia from [...] Sign Reading Time Taken Comments Blood Pressure 140/80 07/04/2024 11:41 AM EDT Pulse 77 07/04/2024 11:12 AM EDT Temperature 37 ??C (98.6 ??F) 07/04/2024 11:12 AM EDT Respiratory Rate 18 07/04/2024 11:12 AM EDT Oxygen Saturation 96% 01/10/2024 9:56 AM EDT Inhaled Oxygen Concentration - - Weight 48 kg (105 lb 12.8 oz) 07/04/2024 11:12 A M EDT Height 144.8 cm (4' 9 ) 07/04/2024 11:12 AM EDT Body Mass Index 22.89 07/04/2024 11:12 AM EDT Plan of Treatment Health Maintenance [...] older (1 - 1-dose 75+ series) 2024 Depression Screening 08/14/2024 08/15/2023, 04/13/19 23 Diabetes: Foot Exam 08/14/2024 08/15/2023, 08/15/2023, 08/15/2023, Additional history exists Diabetes: Hemoglobin A1C 10/01/2024 025, 04/02/2024, 08/15/2023, Additional history exists Lipid Panel 12/31/2024 01/01/2024, 10/24/2022 SDOH Screening 06/25/2025 06/25/2024 Tobacco Screening 07/04/2025 07/04/2024 DTaP/Tdap/Td Vaccines (2 - Td or Tdap) [...] Procedure Name Priority Date/Time Associated Diagnosis Comments POCT RAPID COVID ANTIGEN Routine 07/04/2024 11:35 AM EDT Flu-like symptoms POCT INFLUENZA B Routine 07/04/2024 11:3 5 AM EDT Flu-like symptoms POCT INFLUENZA A Routine 07/04/2024 11:3 5 AM EDT Flu-like symptoms POCT GLUCOSE Routine 07/04/2024 11:13 AM EDT Type 2 diabetes mellitus with stage 3 chronic kidney disease, with long-term current use of insulin, unspecified whether stage 3a or 3b CKD ([facility]) VITAMIN D,25-OH,TOTAL,IA Routine 07/02/2024 9:45 AM EDT ALBUMIN Routine 07/02/2024 9:45 AM EDT BASIC METABOLIC PANEL Routine 07/02/2024 9:45 AM EDT PTH, INTACT WITHOUT CALCIUM Routine 07/02/2024 9:45 AM EDT HEMOGLOBIN A1C Routine 07/02/2024 9:45 AM EDT GLUCOSE, WHOLE BLOOD Routine 06/30/2024 1:37 PM EDT GLUCOSE, WHOLE BLOOD Routine 05/02/2024 10:22 AM EST LIPID PANEL WITH REFLEX TO DIRECT LDL Routine 01/01/2024 10:37 AM EDT Type 2 diabetes mellitus with stage 3 chronic kidney disease, with long-term current use of insulin, unspecified whether stage 3a or 3b CKD (CMS/[facility]) HM COLONOSCOPY Routine 09/16/2019 3:11 PM EDT from Last 3 Months or Most Recently Relevant to Health Maintenance Results * POCT Rapid Covid-19 BinaxNOW (07/04/2024 11:35 AM EDT) [facility] Rapid COVID Ag Negative QC Media Lot # [id number] Lot# Expiration Date 63,026 Swab 07/04/2024 11:3 5 AM EDT Ana María Bryan MD POINT OF CARE TEST ENTER /EDIT ORDERABLES Final Result * POCT Rapid Influenza B OSOM (07/04/2024 11:35 AM EDT) [facility] Rapid Influenza B Ag Negative Negative, Indeterminate QC Media Lot # [id number] Lot# Expiration Date 53,125 Swab 07/04/2024 11:3 5 AM EDT Ana María Bryan MD POINT OF CARE TEST ENTER /EDIT ORDERABLES Final Result * POCT Rapid Influenza A OSOM (07/04/2024 11:35 AM EDT) [facility] Rapid Influenza A Ag Negative Negative, Indeterminate QC Media Lot # [id number] Lot# Expiration Date 53,125 Swab Nasopharyngeal structure / Unknown 07/04/2024 11:35 AM EDT Ana María Bryan MD POINT OF CARE TEST ENTER /EDIT ORDERABLES Final Result * POCT Glucose (07/04/2024 11:13 AM EDT) Glucose Blood, POC 96 60 - 200 mg/dL QC Media Lot # [id number] Lot# Expiration Date Blood Capillary blood specimen / Unknown 07/04/2024 11:13 AM EDT Ana María Bryan MD POINT OF CARE TEST ENTER /EDIT ORDERABLES Final Result * Vitamin D, 25-Hydroxy, Total, Immunoassay (07/02/2024 9:45 AM EDT) Vitamin D 25-OH Total 44.8 >30 ng/mL [facility] Comment: Health Based Reference Values*< 20 ??ng/mL ??Fcjhichqo49-24 ng/mL ??Insufficient> 30 ??ng/mL ??Sufficient*Carlos Manuel BERRY. N Engl J Med. 2007;357:266-280There is no well-established upper level of normal vitamin Dlevels. Some laboratories use 50 ng/mL as an upper limit ofnormal. However, toxicity is patient-dependent and may occurat any level. Careful correlation with the patient'spresentation is necessary and, if there is concern forvitamin D toxicity, treatment should be consideredirrespective of the serum level.Care must be taken in interpreting Vitamin D results fromdifferent laboratories and methodologies. ??Published datademonstrated that results from patients undergoinghemodialysis may show a negative bias when tested withvarious automated 25-OH vitamin D assays when compared toLC- MS/MS.When testing samples from patients whose predominant form ofVitamin D is Vitamin D2, such as patients receiving VitaminD2 supplementation, results that are subtherapeutic shouldbe confirmed with another method such as LC-MS/MS. 07/02/2024 9:45 AM EDT 07/02/2024 9:45 AM EDT us Generic External Data Provider LAB BLOOD ORDERAB LES Final Result Performing Organization Address [facility]/ZIP Co de Phone Number [facility] [address] [place] [phone] * (ABNORMAL) PTH, Intact Without Calcium (07/02/2024 9:45 AM EDT) Parathyroid Hormone, Intact 176.6(H) 8.7 - 77.1 pg/mL [facility] 07/02/2024 9:45 AM EDT 07/02/2024 9:45 AM EDT us Generic External Data Provider LAB BLOOD ORDERAB LES Final Result Performing Organization Address [facility] de Phone Number [facility] [address] [place] [phone] * (ABNORMAL) Hemoglobin A1c (07/02/2024 9:45 AM EDT) Hemoglobin A1c 7.8(H) <6.0 % [facility] Comment:Hemoglobin A1C Refer ence Range Adults: 4.8 - 6.0 % Non diabetic: < 6.0 % Goal: < 7.0 %Additional Action Suggested: > 8.0 %Note: Hemoglobin A1c results are invalid for patients with abnormal amounts of HbF. Blood transfusions may impact the HbA1c concentration in the patient sample. Estimated Average Glucose 177 mg/dL [facility] Comment:eAG = Estimated ave rage glucose which is %A1C expressed asaverage glucose, using the formula of the B2E-FeazkiaZnvptmi Glucose study (ADAG), Diabetes Care, Vol.31,#8,2007 07/02/2024 9:45 AM EDT 07/02/2024 9:45 AM EDT Generic External Data Provider LAB BLOOD ORDERAB LES Final Result Performing Organization Address [facility]/ZIP Co de Phone Number [facility] [address] [place] [phone] * Albumin (07/02/2024 9:45 AM EDT) Albumin Level 4.0 3.5 - 5.0 g/dL [facility] 07/02/2024 9:4 5 AM EDT 07/02/2024 9:45 AM EDT Generic External Data Provider LAB BLOOD ORDERAB LES Final Result Performing Organization Address [facility] de Phone Number [facility] [address] [place] [phone] [phone] * (ABNORMAL) Basic Metabolic Panel (07/02/2024 9:45 AM EDT) Sodium 140 135 - 145 mmol/L [facility] Potassium 4.1 3.3 - 5.1 mmol/L [facility] Chloride 106 96 - 108 mmol/L [facility] Carbon Dioxide 24 22 - 29 mmol/L [facility] Anion Gap 14 12 - 20 [facility] Urea Nitrogen (BUN) 33(H) 9 - 16 mg/dL [facility] Creatinine, Serum 0.99 0.5 - 1.4 mg/dL [facility] Estimated Glomerular Filt Rate 55 [facility] Comment:Chronic Kidney Disea se: Estimated GFR < 60 mL/min/1.49o0Gxsorr Kidney Disease: Estimated GFR < 15 mL/min/1.73m2 Glucose 77 60 - 115 mg/dL [facility] Calcium 9.7 8.4 - 10.2 mg/dL [facility] 07/02/2024 9:45 AM EDT 07/02/2024 9:45 AM EDT us Generic External Data Provider LAB BLOOD ORDERAB LES Final Result Performing Organization Address [facility] de Phone Number [facility] [address] [place] [phone] [phone] * Glucose, Whole Blood (06/30/2024 1:37 PM EDT) Only the most recent of2 resultswithin the time period is included. Glucose, Whole Blood 97 60 - 115 mg/dL [facility] Comment:METER #: [id number] Testing performed in the Endocrinology Department [address] , [address], [facility]. 06/30/2024 1:37 PM EDT 06/30/2024 1:40 PM EDT us Generic External Data Provider LAB BLOOD ORDERAB LES Final Result Performing Organization Address [facility]/State/ZIP Co de Phone Number [facility] [address] [place], [place] [phone] * Lipid Panel with Reflex to Direct LDL (01/01/2024 10:37 AM EDT) Triglycerides 97 <150 mg/dL [facility] Comment:Desirable Triglyceri de: less than 150 mg/dLBorderline High Triglyceride 150-199 mg/dLHigh Triglyceride: 200-499 mg/dLVery High Triglyceride: greater than or equal to 5OO mg/dL Cholesterol 138 <200 mg/dL [facility] Comment:Desirable Cholestero l: less than 200 mg/dLBorderline High Cholesterol: 200-239 mg/dLHigh Cholesterol: greater than 239 mg/dL LDL Cholesterol Calculated 61 <100 mg/dL [facility] Comment:Desirable LDL: less than 100 mg/dLNear Optimal/Above Optimal LDL: 110- 129 mg/dLBorderline High LDL: 130-159 mg/dLHigh LDL: 160-189 mg/dLVery High LDL: greater than or equal to 190 mg/dL HDL Cholesterol 58 >40 mg/dL [facility] Comment:Desirable HDL: great er than 40 mg/dL Note: This HDL assay may give artificially low results in patients with liver disease. Blood 01/01/2024 10:3 7 AM EDT 01/01/2024 11:26 AM EDT us Ana María Bryan MD LAB BLOOD ORDERABLES Fin al Result [facility] [address] [place] [phone] [phone] * Hm Colonoscopy (09/16/2019 3:11 PM EDT) Colonoscopy Normal Normal Narrative Bea Mix - 09/16/2019 3:11 PM EDT Recommended 3 year follow up us Historical Provider HEALTH MAINTENANCE Edited Result - Final from Last 3 Months or Most Recently Relevant to Health Maintenance Insurance [employer] C3 Member Subscriber Plan / Payer (Ef fective 2022-Present) Name:Sofiya Julian Relation to Subscriber:Self Name:Sofiya Julian Payer ID:Not on file Group ID:Not on file Type:Medicaid Address: [facility] [id number] [place] [id number] [place] [address] Care Teams Secondary Special Education Teacher Relationship Specialty Start Date End Date Ana María Bryan MD [address] [place] [phone] PCP - General Family Medicine 03/26/18
--- OUTSIDE RECORDS SUMMARY | 2024-07-04 12:31 | XMS_ITS | Encounter Summary ---
Author Organization [employer] Address [address] [facility] 7t [place] [address] Care Team Providers Care Hair Boiler Operator Name Role Phone Ana María Bryan MD Primary Care Provider + Reason for Referral * Consultation (Routine) - Pending Review Specialty Diagnoses / Procedures Referred By Caro teran Referred To Contact Ophthalmology Diagnoses Type 2 diabetes mellitus with stage 3 chronic kidney disease, with long-term current use of insulin, unspecified whether stage 3a or 3b CKD (CMS/HCC) Ana María Bryan MD [address] [place] [phone] Phone: tel: fax: Referral ID Status Reason Start Date Expiration Date Visits Requested Visits Authorized [id number] Pending Review Specialty Services Required 07/04/2024 07/04/2025 1 1 Encounter Details Date Type Department Care Team (Late st Contact Info) Description 07/04/2024 11:30 AM EDT Office Visit [facility] MEDICINE [address] [place] [phone] Ana María Bryan MD [address] [place], [place] [phone] Type 2 diabetes mellitus with stage 3 chronic kidney disease, with long-term current use of insulin, unspecified whether stage 3a or 3b CKD (CMS/HCC); Flu-like symptoms; Seasonal allergic rhinitis due to other allergic trigger Social History Tobacco Use Types Packs/Day Years [...] AM EST documented as of this encounter Last Filed Vital Signs Vital Sign Reading Time Taken Comments Blood Pressure 140/80 07/04/2024 11:41 AM EDT Pulse 77 07/04/2024 11:12 AM EDT Temperature 37 ??C (98.6 ??F) 07/04/2024 11:12 AM EDT Respiratory Rate 18 07/04/2024 11:12 AM EDT Oxygen Saturation - - Inhaled Oxygen Concentration - - Weight 48 kg (105 lb 12.8 oz) 07/04/2024 11:12 A M EDT Height 144.8 cm (4' 9 ) 07/04/2024 11:12 AM EDT Body Mass Index 22.89 07/04/2024 11:12 AM EDT documented in this encounter Plan of Treatment Scheduled Referrals Name Type Priority Associated Diagnoses Order Schedule Referral to Ophthalmology Outpatient Referral Routine Type 2 diabetes mellitus with stage 3 chronic kidney disease, with long-term current use of insulin, unspecified whether stage 3a or 3b CKD (CMS/HCC) Expected: 07/04/2024 (Approximate), Expires: 07/04/2025 documented as of this encounter Procedures Procedure [...] 3b CKD (CMS/HCC) documented in this encounter Results * POCT Rapid Covid-19 BinaxNOW (07/04/2024 11:35 AM EDT) Rapid COVID Ag Negative QC Media Lot # [id number] Lot# Expiration Date 63,026 Swab 07/04/2024 11:3 5 AM EDT Ana María Bryan MD POINT OF CARE TEST ENTER /EDIT ORDERABLES Final Result * POCT Rapid Influenza B OSOM (07/04/2024 11:35 AM EDT) Rapid Influenza B Ag Negative Negative, Indeterminate QC Media Lot # [id number] Lot# Expiration Date 53,125 Swab 07/04/2024 11:3 5 AM EDT Ana María Bryan MD POINT OF CARE TEST ENTER /EDIT ORDERABLES Final Result * POCT Rapid Influenza A OSOM (07/04/2024 11:35 AM EDT) Rapid Influenza A Ag Negative Negative, Indeterminate [...] CARE TEST ENTER /EDIT ORDERABLES Final Result documented in this encounter Visit Diagnoses Diagnosis Type 2 diabetes mellitus with stage 3 chronic kidney disease, with long-term current use of insulin, unspecified whether stage 3a or 3b CKD ([facility]) Flu-like symptoms Seasonal allergic rhinitis due to other allergic trigger documented in this encounter Additional Health Concerns Assessment Noted Time PHQ-9 Depression Total Score: 1 04/13/19 23 10:26 AM EST documented as of this encounter Care Teams Hair Boiler Operator Relationship Specialty Start Date End Date Ana María Bryan MD [address] [place] [phone] PCP - General Family Medicine 03/26/18 documented as of this encounter
--- OUTSIDE RECORDS SUMMARY | 2024-07-04 12:31 | XMS_ITS | Clinical Summary ---
Author Organization [facility] Address [address] [place] [address] Care Team Providers Care Coffee Supervisor Name Role Phone Pcp, No Primary Care [...] age to complete this topic Care Teams Coffee Supervisor Relationship Specialty Start Date End Date Pcp, No [address] [place] [address] PCP - General 12/17/19
--- OUTSIDE RECORDS SUMMARY | 2024-07-04 12:31 | XMS_ITS | Encounter Summary ---
Author Organization [employer] Address [address] [facility] 7[address] [place] [address] Care Team Providers Care Overhead Crane Inspector Name Role Phone Ana María Bryan MD Primary Care Provider + Encounter Details Date Type Department Care Team (Late st Contact Info) Description 03/17/2022 Orders Only [facility] MEDICINE [address] [place] [address] Dary Nuno MD [address] [place] [address] Acute deep vein thrombosis (DVT) of proximal [...] Primary documented in this encounter Care Teams Overhead Crane Inspector Relationship Specialty Start Date End Date Ana María Bryan MD [address] [place] [phone] PCP - General Family Medicine 03/26/18 documented as of this encounter
--- OUTSIDE RECORDS SUMMARY | 2024-07-04 12:31 | XMS_ITS | Encounter Summary ---
Author Organization [employer] Address [address] [facility] 7t [place] [address] Care Team Providers Care Diamond Sawer Name Role Phone Ana María Bryan MD Primary Care Provider + Reason for Visit * Reason Comments Med Refill Encounter Details Date Type Department Care Team ([facility] st Contact Info) Description 11/18/2023 Refill [facility] [address] [place] [address] Ana María Bryan MD [address] [place], [place] [phone] Acute deep vein thrombosis (DVT) of proximal [...] your housing situation today? I have dominick rokc 08/06/[address] you li [...] documented as of this encounter Care Teams Diamond Sawer Relationship Specialty Start Date End Date Ana María Bryan MD [address] [place] [phone] PCP - General Family Medicine 03/26/18 documented as of this encounter
--- OUTSIDE RECORDS SUMMARY | 2024-07-04 12:31 | XMS_ITS | Encounter Summary ---
Author Organization [employer] Address [address] [facility] 7t [place] [address] Care Team Providers Care Child Day Care Center Worker Name Role Phone Ana María Bryan MD Primary Care Provider + Reason for Visit * Reason Comments Med Refill Encounter Details Date Type Department Care Team ([facility] st Contact Info) Description 10/29/2023 Refill [facility] [address] [place] [address] Ana María Bryan MD [address] [place] [address] Primary insomnia Social History Tobacco Use Types [...] documented as of this encounter Care Teams Child Day Care Center Worker Relationship Specialty Start Date End Date Ana María Bryan MD [address] [place] [address] PCP - General Family Medicine 03/26/18 documented as of this encounter
--- OUTSIDE RECORDS SUMMARY | 2024-07-04 12:31 | XMS_ITS | Encounter Summary ---
Author Organization [employer] Address [address] [facility] 7t [place] [address] Care Team Providers Care Marketing Professional Name Role Phone Ana María Bryan MD Primary Care Provider + Encounter Details Date Type Department Care Team (Latest Contact Info) Description 07/04/2024 Travel Social History Tobacco Use Types Packs/Day Years [...] documented as of this encounter Care Teams Marketing Professional Relationship Specialty Start Date End Date Ana María Bryan MD [address] [place] [phone] PCP - General Family Medicine 03/26/18 documented as of this encounter
--- OUTSIDE RECORDS SUMMARY | 2024-07-04 12:31 | XMS_ITS | Encounter Summary ---
Author Organization [employer] Address 75 [facility] 7t [place] [address] Care Team Providers Care Head Refrigerating Engineer Name Role Phone Ana María Bryan MD Primary Care Provider + Encounter Details Date Type Department Care Team (Late st Contact Info) Description 09/12/2022 Abstract [facility] MEDICINE [address] [place] [address] Ana María Bryan MD [address] [place] [address] Social History Tobacco Use Types Packs/Day Years [...] documented as of this encounter Care Teams Head Refrigerating Engineer Relationship Specialty Start Date End Date Ana María Bryan MD [address] [place] [address] PCP - General Family Medicine 03/26/18 documented as of this encounter
--- OUTSIDE RECORDS SUMMARY | 2024-07-04 12:31 | XMS_ITS | Encounter Summary ---
Author Organization [employer] Address 75 [facility] 7t [place] [address] Care Team Providers Care Prison Librarian Name Role Phone Ana María Bryan MD Primary Care Provider + Encounter Details Date Type Department Care Team ([facility] st Contact Info) Description 05/08/2022 [facility] Information Management [address] [place] [address] Ana María Bryan MD [address] [place] [address] Social History Tobacco Use Types Packs/Day Years [...] documented as of this encounter Care Teams Prison Librarian Relationship Specialty Start Date End Date Ana María Bryan MD [address] [place] [phone] PCP - General Family Medicine 03/26/18 documented as of this encounter
--- OUTSIDE RECORDS SUMMARY | 2024-07-04 12:31 | XMS_ITS | Encounter Summary ---
Author Organization [employer] Address [address] [facility] 7t [place] [address] Care Team Providers Care Assembler Name Role Phone Ana María Bryan MD Primary Care Provider + Encounter Details Date Type Department Care Team (Late st Contact Info) Description 05/11/2022 Orders Only [facility] MEDICINE [address] [place] [address] Vandana Ledesma DO [address] [place], [place] [phone] Social History Tobacco Use Types Packs/Day Years [...] documented as of this encounter Care Teams Assembler Relationship Specialty Start Date End Date Ana María Bryan MD [address] [place] [phone] PCP - General Family Medicine 03/26/18 documented as of this encounter
--- OUTSIDE RECORDS SUMMARY | 2024-07-04 12:31 | XMS_ITS | Encounter Summary ---
Author Organization [employer] Address [address] [facility] 7t [place] [address] Care Team Providers Care Sign Maintenance Name Role Phone Ana María Bryan MD Primary Care Provider + Encounter Details Date Type Department Care Team (Late st Contact Info) Description 07/02/2024 Orders Only GENERIC EXTERNAL DATA DEPARTMENT [...] t he electric, gas, oil or water [employer] threatened to shut off services in your [...] Date/Time Associated Diagnosis Comments VITAMIN D,25-OH,TOTAL,IA Routine 07/02/2024 9:45 AM EDT PTH, INTACT WITHOUT CALCIUM Routine 07/02/2024 9:45 AM EDT HEMOGLOBIN A1C Routine 07/02/2024 9:45 AM EDT ALBUMIN Routine 07/02/2024 9:45 AM EDT BASIC METABOLIC PANEL Routine 07/02/2024 9:45 AM EDT documented in this encounter Results * Vitamin D, 25-Hydroxy, Total, Immunoassay (07/02/2024 9:45 AM EDT) Vitamin D 25-OH Total 44.8 >30 ng/mL [facility] Comment: Health Based Reference Values*< 20 ??ng/mL ??Sxzjwluxp25-13 ng/mL ??Insufficient> 30 ??ng/mL ??Sufficient*Carlos Manuel BERRY. [...] ORDERAB LES Final Result Performing Organization Address [facility]/ZIP Co de Phone Number [facility] [address] [place] [phone] * Albumin (07/02/2024 9:45 AM EDT) Albumin Level 4.0 3.5 - 5.0 g/dL [facility] 07/02/2024 9:45 AM EDT 07/02/2024 9:45 AM EDT Generic External Data Provider LAB BLOOD ORDERAB LES Final Result Performing Organization Address [facility]/ZIP Co de Phone Number [facility] [address] [place] [phone] * (ABNORMAL) Basic Metabolic Panel (07/02/2024 9:45 AM EDT) Sodium 140 135 - 145 mmol/L [facility] Potassium 4.1 3.3 - 5.1 mmol/L [facility] Chloride 106 96 - 108 mmol/L [facility] Carbon Dioxide 24 22 - 29 mmol/L [facility] Anion Gap 14 12 - 20 [facility] Urea Nitrogen (BUN) 33(H) 9 - 16 mg/dL [facility] Creatinine, Serum 0.99 0.5 - 1.4 mg/dL [facility] Estimated Glomerular Filt Rate 55 [facility] Comment:Chronic Kidney Disea se: Estimated GFR < 60 mL/min/[id number] Kidney Disease: Estimated GFR < 15 mL/min/1.73m2 Glucose 77 60 - 115 mg/dL [facility] Calcium 9.7 8.4 - 10.2 mg/dL [facility] 07/02/2024 9:45 AM EDT 07/02/2024 9:45 AM EDT Generic External Data Provider LAB BLOOD ORDERAB LES Final Result Performing Organization Address City/[facility]/ZIP Co de Phone Number [facility] [address] [place] [phone] * (ABNORMAL) PTH, Intact Without Calcium (07/02/2024 9:45 AM EDT) Parathyroid Hormone, Intact 176.6(H) 8.7 - 77.1 pg/mL [facility] 07/02/2024 9:45 AM EDT 07/02/2024 9:45 AM EDT Generic External Data Provider LAB BLOOD ORDERAB LES Final Result Performing Organization Address City/[facility]/ZIP Co de Phone Number [facility] [address] [place] [phone] * (ABNORMAL) Hemoglobin A1c (07/02/2024 9:45 AM EDT) Hemoglobin A1c 7.8(H) <6.0 % [facility] Comment:Hemoglobin A1C Refer ence Range Adults: 4.8 - 6.0 % Non diabetic: < 6.0 % Goal: < 7.0 %Additional Action Suggested: > 8.0 %Note: Hemoglobin A1c results are invalid for patients with abnormal amounts of HbF. Blood transfusions may impact the HbA1c concentration in the patient sample. Estimated Average Glucose 177 mg/dL [facility] Comment:eAG = Estimated ave rage glucose which is %A1C expressed asaverage glucose, using the formula of the [id number] Glucose study (ADAG), Diabetes Care, Vol.31,#8,2007 07/02/2024 9:45 AM EDT 07/02/2024 9:45 AM EDT us Generic External Data Provider LAB BLOOD ORDERAB LES Final Result [facility] [address] [place] [phone] documented in this encounter Visit Diagnoses Not on filedocumented in this encounter Additional Health Concerns Assessment Noted Time PHQ-9 Depression Total Score: 1 04/13/19 23 10:26 AM EST documented as of this encounter Care Teams Sign Maintenance Relationship Specialty Start Date End Date Ana María Bryan MD [address] [place] [phone] PCP - General Family Medicine 03/26/18 documented as of this encounter
[2024-07-06 22:13] LABS: Calcium, 24 Hr Urine 12 mg/24 h; Calcium/Creatinine Ratio 16 mg/g creat (30-275); Creatinine 24Hr Urine 0.75 g/24 h (0.50-2.15)
== END 2024-07-04 11:30 | disposition home or self-care (01) ==
LOC: HO.LNP 11:29
PROVIDERS: Visit Provider Internal Medicine Endocrinology, Diabetes & Metabolism
DX: M81.0 Age-related osteoporosis without current pathological fracture (principal)
CPT/HCPCS: 82340; 82570

== ENCOUNTER 2024-07-06 19:36 | Emergency (ER) | payer OTHER, SELFPAY ==
--- NOTE | ~2024-07-06 | XR_ITS ---
CLINICAL HISTORY: right upper posterior rib pain after hitting in BR 4 view, chest and bilateral ribs Comparison: None Findings: Deformities of the right posterior 6th 7th 8th 9th and 10th ribs likely represent age indeterminate fractures some of which demonstrate features of chronic non healed fractures. The lungs are unremarkable. IMPRESSION: Deformities of the right posterior 6th 7th 8th 9th and 10th ribs likely represent age indeterminate fractures (Likely chronic). This document has been electronically signed by: Jalil Rivers MD on 07/06/2024 20:41:08
--- NOTE | ~2024-07-06 | CT_ITS ---
CLINICAL HISTORY: r lower rib pain CT chest without contrast Comparison: CR - XR RIBS BI MIN 4V W CXR1V - 07/06/24 20:20 EDT Findings: The heart is normal size. Moderate atherosclerotic disease of the aortic arch, origins of the great vessels, and thoracic aorta. Severe atherosclerotic calcification of the coronary arteries. The visualized thyroid and mediastinum are unremarkable. Moderate-sized hiatal hernia. Lobulated partially calcified lesion within the left upper lobe measuring 1.9 cm adjacent to a lung cyst. The visualized upper abdomen is unremarkable. 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 No evidence of acute fractures. IMPRESSION: 1. 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 No evidence of acute fractures. 2. Left upper lobe 1.9 cm partially calcified lobulated lesion adjacent to a lung cyst may represent a hematoma or granulomatosis. 3. Moderate sized hiatal hernia. 4. Moderate atherosclerotic disease of the aortic arch, origins of the great vessels and thoracic aorta and severe atherosclerotic calcification of the coronary arteries. This document has been electronically signed by: Jalil Rivers MD on 07/06/2024 22:24:59
--- NOTE | 2024-07-06 19:58 | ED_ITS ---
HPI - General Adult General Chief complaint: Back Pain/Injury Stated complaint: lower back pain Time Seen by Provider: 07/06/24 21:16 Source: patient and family Mode of arrival: ambulatory Limitations: no limitations History of Present Illness ED Provider: HPI narrative: Patient's history of right lower ribs fracture about 8 9 years ago comes here as felt dizzy 3 days ago and fell on the grab bar in the bathroom complaining of pain in the right lower ribs which increases on deep breaths no shortness a breath no nausea no vomiting no other injuries patient denies any urinary co mplaints no fever no chills Related Data Home Medications ?Medication ?Instructions ?Recorded ?Confirmed docusate sodium 100 mg capsule 100 mg PO BID 03/30/20 06/30/24 mycophenolate sodium 180 mg 180 mg PO BID 03/30/20 06/30/24 tablet,delayed release pantoprazole 40 mg tablet,delayed 40 mg PO DAILY 03/30/20 06/30/24 release prednisone 5 mg tablet 5 mg PO DAILY 03/30/20 06/30/24 tacrolimus 1 mg capsule, 3 mg PO BID 03/30/20 06/30/24 immediate-release gabapentin 100 mg capsule 100 mg PO DAILY 06/21/20 06/30/24 acetaminophen 500 mg tablet 500 mg PO NEEDED PRN Pain 10/01/20 06/30/24 fluticasone propionate 50 1 - 2 spray intranasal DAILY PRN 12/07/21 06/30/24 mcg/actuation nasal Allergy Symptoms spray,suspension apixaban 5 mg tablet (Eliquis) 5 mg PO DAILY 04/19/22 06/30/24 ascorbic acid (vitamin C) 500 mg 500 mg PO QAM 04/19/22 06/30/24 tablet (Vitamin C) lisinopril 2.5 mg tablet 2.5 mg PO QAM 07/31/22 06/30/24 ferrous sulfate 325 mg (65 mg 325 mg PO BID 09/01/22 06/30/24 iron) tablet,delayed release melatonin 5 mg tablet 5 mg PO BEDTIME 09/01/22 06/30/24 trazodone 100 mg tablet 200 mg PO BEDTIME PRN 09/01/22 06/30/24 molnupiravir 200 mg capsule (EUA) mg PO 01/02/24 06/30/24 (Lagevrio) Previous Rx's ?Medication ?Instructions ?Recorded blood sugar diagnostic (OneTouch #150 ea 10/01/20 Verio test strips) pen needle, diabetic 32 gauge x #100 ea 10/01/20 (BD Florencia 2nd Gen Pen Needle) atorvastatin 80 mg tablet 80 mg PO BEDTIME #90 tabs 12/10/20 blood-glucose meter (OneTouch #1 ea 12/07/21 Verio Flex Meter) lancets 33 gauge (OneTouch Delica ##100 07/12/22 Plus Lancet) cholecalciferol (vitamin D3) 25 50 mcg (2 x 25 mcg (1,000 unit)) 11/19/23 mcg (1,000 unit) capsule (Vitamin PO QAM #60 caps D3) insulin lispro 100 unit/mL 2 - 5 unit (0.02 - 0.05 mL) subcut 03/31/24 subcutaneous pen (Humalog KwikPen TID #15 mL (U-100) Insulin) insulin glargine 100 unit/mL (3 15 unit (0.15 mL) subcut QPM #15 mL 05/02/24 mL) subcutaneous pen (Lantus Solostar U-100 Insulin) blood-glucose sensor (Dexcom G7 #3 ea 06/30/24 Sensor device) cefuroxime axetil 500 mg tablet 500 mg PO BID 7 days #14 tabs 07/06/24 oxycodone 5 mg tablet 5 mg PO Q6H PRN pain #20 tabs 07/06/24 Allergies Allergy/AdvReac Type Severity Reaction Status Date / Time diphenhydramine AdvReac Anxiety Verified 07/06/24 20:01 [From Benadryl] Review of Systems Review of Systems: Yes all other systems are reviewed and are negative [facility] Past Medical History Medical History Vitamin D deficiency Hypertension Osteoporosis Diabetic retinopathy associated with type 2 diabetes mellitus Diabetic nephropathy associated with type 2 diabetes mellitus jail (current) use of insulin Dyslipidemia Diabetes type 2, uncontrolled Surgical History History of esophagogastroduodenoscopy (EGD) Hx of colonoscopy Hx of section Hx of tonsillectomy Hx of arteriovenostomy for renal dialysis History of renal transplant Family History Family History Father No problems noted. Mother No problems noted. Sister Breast cancer Diabetes Maternal Aunt Cancer Maternal Uncle Cancer Social History Social History Household Members: Spouse Alcohol intake: never Patient Tobacco Use Status: Never used Tobacco Smoked in Last 30 Days: No Use of substances other than those prescribed or required for medical reasons: No Advance Directives: No Advance Directives Information Provided: No Do you have a plan to hurt others: No Plan service: No Current occupational status: retired Gender identity: Female Physical Exam ED Vital Signs: Vital Signs - 24 hr 07/06/24 20:00 07/06/24 23:14 07/06/24 23:20 Temperature 97.9 F 97.7 F 97.7 F Pulse Rate 74 75 75 Respiratory Rate 18 14 14 Blood Pressure 106/78 175/75 H 175/75 H Pulse Oximetry 98 94 94 Oxygen Delivery Method Room Air Room Air Room Air BMI result Body Mass Index 22.0 Appearance: Alert. Oriented X3. No acute distress. Eyes: No pallor or icterus ENT: Pharynx normal. Oral Mucosa moist Neck: Normal inspection. Neck supple. CVS: Normal heart rate and rhythm. Pulses normal. Respiratory: No respiratory distress. Equal air entry bilateral, no wheezing/rales/rhonchi Abdomen: Soft and nontender. Bowel sounds are present, no mass palpable, tenderness right lower ribs no crepitation Skin: Skin warm and dry. Normal skin color. Normal skin turgor. Extremities: No lower extremity edema. No calf tenderness Neuro: Oriented X 3. No motor deficit. No sensory deficit.No cerebellar signs , cranial nerves II-XII intact Course Course Course Narrative: This is a rapid medical exam performed by Liberty Connelly NP: Additional HPI, ROS, PE not included below will be deferred to primary provider. Patient is a 74-year-old [place] speaking female with history of renal transplant, T2DM, diabetic nephropathy, dyslipidemia, HTN presenting to the ED with complaint of right sided back pain. States she was in the bathroom, became dizzy, and hit her back against the grab bar in the bathroom 2-3 days ago. Did not fall to floor or strike head. Difficulty sleeping due to pain. Did not notify family of symptoms until today. Tenderness to palpation of right upper posterior ribs. Plan: Rib xray Medications Administered Discontinued Medications Generic Name Dose Route Start Last Admin Trade Name Siomara PRN Reason Stop Dose Admin Cefuroxime Axetil 500 mg 07/06/24 23:08 07/06/24 23:16 Cefuroxime Axetil 500 Mg Tablet PO 07/06/24 23:09 500 mg ONCE ONE Administration Oxycodone HCl 5 mg 07/06/24 21:43 07/06/24 21:59 Oxycodone Hcl Immed Release 5 Mg Tablet PO 07/06/24 21:44 5 mg ONCE ONE Administration Medical Decision Making Medical Decision Making [facility] Narrative: Patient with right lower rib pain after mild injury with history old rib fracture about [address] scan same no new fracture seen no lung damage or any organ damage. Will discharge patient home on oxycodone Differential Diagnosis Differential Diagnoses: The differential diagnosis associated with the presentation includes Lab Data MDM Lab Attestation statement: I reviewed the patient's lab results. Labs: Lab Results 07/06/24 Range/Units 21:13 Urine Color Yellow Urine Appearance Turbid Urine pH 5.5 (5.0-9.0) Ur Specific [place] 1.010 (1.005-1.025) Urine Protein Trace (Neg-Trace) mg/dL Urine Glucose (UA) >=1000 H (Negative) mg/dL Urine Ketones Negative (Negative) mg/dL Urine Blood Small (1+) H (Negative) Urine Nitrite Negative (Negative) Ur Leukocyte Esterase Large (3+) H (Negative) Urine RBC 3-5 H (0-2) /HPF Urine WBC >50 H (0-5) /HPF Urine WBC Clumps Present Ur Squamous Epith Cells 3-5 (0-2) /HPF Urine Bacteria 3+ (None Seen) Hyaline Casts 0-2 (0-2) /LPF Independent Interpretation I performed an independent interpretation of an: CT Scan Radiology Impression Discussion of test interpretation with radiology: I have reviewed the radiologist's reading. Radiologist Impression: IMPRESSION: 1. 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 No evidence of acute fractures. 2. Left upper lobe 1.9 cm partially calcified lobulated lesion adjacent to a lung cyst may represent a hematoma or granulomatosis. 3. Moderate sized hiatal hernia. 4. Moderate atherosclerotic disease of the aortic arch, origins of the great vessels and thoracic aorta and severe atherosclerotic calcification of the coronary arteries. This document has been electronically signed by: Jalil Rivers MD on 07/06/2024 22:24:59 Discharge Plan Discharge Clinical Impression: Ribs, multiple fractures, Infected skin lesion, UTI (urinary tract infection) Patient Disposition: Home, Self-Care Instructions: Urinary Tract Infection in Women (DC), Rib Fracture (ED), Acute Wounds (ED) Additional Instructions: Your pain in the right upper back is from the old rib fracture Take pain medication as prescribed Report to the ER if worsening of the pain Take antibiotic as prescribed Drink plenty of fluids Prescriptions: New oxycodone 5 mg tablet 5 mg PO Q6H PRN (Reason: pain) Qty: 20 0RF Rx Instructions: Partial Fill upon patient request. cefuroxime axetil 500 mg tablet 500 mg PO BID 7 Days Qty: 14 0RF No Action atorvastatin 80 mg tablet 80 mg PO BEDTIME Qty: 90 1RF (DME) lancets [OneTouch Delica Plus Lancet] 33 gauge misc See Rx Instructions .ROUTE .COMPLEX Qty: 100 8RF Dose Instruction: TEST BLOOD SUGAR 4 TIMES A DAY Rx Instructions: TEST BLOOD SUGAR 4 TIMES A DAY cholecalciferol (vitamin D3) [Vitamin D3] 25 mcg (1,000 unit) capsule 50 mcg PO QAM Qty: 60 11RF insulin lispro [Humalog KwikPen Insulin] 100 unit/mL insulin pen 2 - 5 unit subcut TID Qty: 15 5RF lisinopril 2.5 mg tablet 2.5 mg PO QAM mycophenolate sodium 180 mg tablet,delayed release (DR/EC) 180 mg PO BID tacrolimus 1 mg capsule 3 mg PO BID docusate sodium 100 mg capsule 100 mg PO BID pantoprazole 40 mg tablet,delayed release (DR/EC) 40 mg PO DAILY prednisone 5 mg tablet 5 mg PO DAILY gabapentin 100 mg capsule 100 mg PO DAILY acetaminophen 500 mg tablet 500 mg PO NEEDED PRN (Reason: Pain) (DME) OneTouch Verio test strips Strip See Rx Instructions .MEDSUPPLY Qty: 150 4RF Rx Instructions: 4 times in day (DME) pen needle, diabetic [BD Florencia 2nd Gen Pen Needle] 32 gauge x 5/32 needle See Rx Instructions .MEDSUPPLY Qty: 100 4RF Rx Instructions: twice a day fluticasone propionate 50 mcg/actuation spray,suspension 1 - 2 spray intranasal DAILY PRN (Reason: Allergy Symptoms) (DME) blood-glucose meter [OneTouch Verio Flex meter] [facility] See Rx Instructions .Route Qty: 1 0RF Rx Instructions: As directed Eliquis 5 mg tablet 5 mg PO DAILY ascorbic acid (vitamin C) [Vitamin C] 500 mg tablet 500 mg PO QAM Lagevrio (EUA) 200 mg capsule PO insulin glargine [Lantus Solostar U-100 Insulin] 100 unit/mL (3 mL) insulin pen 15 unit subcut QPM Qty: 15 5RF ferrous sulfate 325 mg (65 mg iron) tablet,delayed release (DR/EC) 325 mg PO BID melatonin 5 mg tablet 5 mg PO BEDTIME trazodone 100 mg tablet 200 mg PO BEDTIME PRN (DME) Dexcom G7 Sensor Device See Rx Instructions .ROUTE .MEDSUPPLY Qty: 3 5RF Rx Instructions: Use daily As directed to monitor glucose. change q 10 days Interventions: ED Discharge Assessment Last Done: 07/06/24 23:20 Discharge Date/Time: 07/06/24 23:21 Print Language: [place]
[2024-07-06 20:00] VITALS: BP 106/78; PULSE 74; RESP 18; TEMP 36.6; O2SAT 98; BMI 22.0
--- OUTSIDE RECORDS SUMMARY | 2024-07-06 21:11 | XMS_ITS | Encounter Summary ---
Author Organization [employer] Address 75 [facility] 7t [place] [address] Care Team Providers Care Advisory Application Developer Name Role Phone Ana María Bryan MD Primary Care Provider + Reason for Visit * Reason Comments Med Refill Encounter Details Date Type Department Care Team ([facility] st Contact Info) Description 10/29/2023 Refill [facility] [address] [place] [address] Ana María Bryan MD [address] [place] [address] Primary insomnia Social History Tobacco Use Types Packs/Day Years Used Date Smoking Tobacco: Never Passive Smoke Exposure: Never Smokeless Tobacco: Never Alcohol Use Standard Drinks/Week Comments Never 0 (1 standard drink = 0.6 oz pur e alcohol) Depression Answer Date Recorded Patient Health Questionnaire-9 Score 1 04/13/2022 Housing Stability Answer Date Recorded What is your housing situation today? I have odminickbashir wilkerson 08/06/[address] you [...] Care Team (Late st Contact Info) Description 10/03/2024 11:30 AM EDT Office Visit [facility] MEDICINE [address] [place] [address] Ana María Bryan MD [address] [place] [address] documented as of this encounter Visit Diagnoses Diagnosis Primary insomnia Persistent disorder of initiating or maintaining sleep documented in this encounter Additional Health Concerns Assessment Noted Time PHQ-9 Depression Total Score: 1 04/13/19 23 10:26 AM EST documented as of this encounter Care Teams Advisory Application Developer Relationship Specialty Start Date End Date Ana María Bryan MD [address] [place] [phone] PCP - General Family Medicine 03/26/18 documented as of this encounter
--- OUTSIDE RECORDS SUMMARY | 2024-07-06 21:11 | XMS_ITS | Encounter Summary ---
Author Organization [employer] Address 75 [facility] 7t [place] [address] Care Team Providers Care Pocket Flap Creasing Machine Operator Name Role Phone Ana María Bryan MD Primary Care Provider + Reason for Visit * Reason Comments Med Refill Encounter Details Date Type Department Care Team ([facility] st Contact Info) Description 11/18/2023 Refill [facility] MED[facility] [address] [place] [address] Ana María Bryan MD [address] [place], [place] [phone] Acute deep vein thrombosis (DVT) of proximal [...] Description 10/03/2024 11:30 AM EDT Office Visit [facility] [address] [place] [address] Ana María Bryan MD [address] [place] [address] documented as of this encounter Visit Diagnoses Diagnosis Acute deep vein thrombosis (DVT) of proximal vein of right lower extremity (CMS/HCC) documented in this encounter Additional Health Concerns Assessment Noted Time PHQ-9 Depression Total Score: 1 04/13/19 23 10:26 AM EST documented as of this encounter Care Teams Pocket Flap Creasing Machine Operator Relationship Specialty Start Date End Date Ana María Bryan MD [address] [place] [address] PCP - General Family Medicine 03/26/18 documented as of this encounter
--- OUTSIDE RECORDS SUMMARY | 2024-07-06 21:12 | XMS_ITS | Encounter Summary ---
Author Organization [employer] Address 75 [facility] 7t [place] [address] Care Team Providers Care Electrolysis Operator Name Role Phone Ana María Bryan MD Primary Care Provider + Encounter Details Date Type Department Care Team (Latest Contact Info) Description 05/25/2021 Abstract [facility] CONVERSIONS Dental, Provider, DDS Social History [...] Care Team ( st Contact Info) Description 10/03/2024 11:30 AM EDT Office Visit [facility] MEDICINE [address] [place] [address] Ana María Bryan MD [address] [place] [address] documented as of this encounter Visit Diagnoses Not on filedocumented in this encounter Care Teams Electrolysis Operator Relationship Specialty Start Date End Date Ana María Bryan MD [address] [place] [address] PCP - General Family Medicine 03/26/18 documented as of this encounter
--- OUTSIDE RECORDS SUMMARY | 2024-07-06 21:12 | XMS_ITS | Clinical Summary ---
Author Organization [facility] Address [address] [place] [address] Care Team Providers Care Uniform Cap Operator Name Role Phone Pcp, No Primary Care [...] age to complete this topic Care Teams Uniform Cap Operator Relationship Specialty Start Date End Date Pcp, No [address] [place] [address] PCP - General 12/17/19
--- OUTSIDE RECORDS SUMMARY | 2024-07-06 21:12 | XMS_ITS | Encounter Summary ---
Author Organization [employer] Address [address] [facility] 7t [place] [address] Care Team Providers Care Multilith Operator Name Role Phone Ana María Bryan MD Primary Care Provider + Reason for Visit * Reason Comments Med Refill Encounter Details Date Type Department Care Team (Late st Contact Info) Description 11/21/[address] [facility] MEDICINE [address] [place] [address] Ana María Bryan MD [address] [place], [place] [phone] Type 2 diabetes mellitus with stage 3 [...] Description 10/03/2024 11:30 AM EDT Office Visit [facility] MEDICINE [address] [place] [address] Ana María Bryan MD [address] [place] [address] documented as of this encounter Visit Diagnoses Diagnosis Type 2 diabetes mellitus with stage 3 chronic kidney disease, with long-term current use of insulin, unspecified whether stage 3a or 3b CKD (CMS/HCC) documented in this encounter Additional Health Concerns Assessment Noted Time PHQ-9 Depression Total Score: 1 04/13/19 23 10:26 AM EST documented as of this encounter Care Teams Multilith Operator Relationship Specialty Start Date End Date Ana María Bryan MD [address] [place] [address] PCP - General Family Medicine 03/26/18 documented as of this encounter
--- OUTSIDE RECORDS SUMMARY | 2024-07-06 21:12 | XMS_ITS | Encounter Summary ---
Author Organization [employer] Address [address] [facility] 7t [place] [address] Care Team Providers Care Global Marketing Intern Name Role Phone Ana María Bryan MD Primary Care Provider + Encounter Details Date Type Department Care Team (Late Contact Info) Description 09/12/2022 Abstract [facility] MEDICINE [address] [place] [id number] Ana María Bryan MD [address] [place] [address] Social History Tobacco Use Types Packs/Day Years [...] Department Care Team (Late Contact Info) Description 10/03/2024 11:30 AM EDT Office Visit [facility] [address] [place] [phone] Ana María Bryan MD [address] [place] [address] documented as of this encounter Procedures Procedure [...] documented as of this encounter Care Teams Global Marketing Intern Relationship Specialty Start Date End Date Ana María Bryan MD [address] [place] [address] PCP - General Family Medicine 03/26/18 documented as of this encounter
--- OUTSIDE RECORDS SUMMARY | 2024-07-06 21:12 | XMS_ITS | Encounter Summary ---
Author Organization [employer] Address [address] [facility] 7[address] [place] [address] Care Team Providers Care Lime Burner Name Role Phone Ana María Bryan MD Primary Care Provider + Reason for Referral * Consultation (Routine) - Pending Review Specialty Diagnoses / Procedures Referred By Caro teran Referred To Contact Ophthalmology Diagnoses Type 2 diabetes mellitus with stage 3 chronic kidney disease, with long-term current use of insulin, unspecified whether stage 3a or 3b CKD (CMS/HCC) Ana María Bryan MD [address] [place] [phone] Phone: tel: fax: Referral ID Status Reason Start Date Expiration Date Visits Requested Visits Authorized [id number] Pending Review Specialty Services Required 07/04/2024 07/04/2025 1 1 Encounter Details Date Type Department Care Team (Late st Contact Info) Description 07/04/2024 11:30 AM EDT Office Visit [facility] MED[facility]INE [address] [place] [address] [phone] Ana María Bryan MD [address] [place], [place] [phone] Type 2 diabetes mellitus with stage 3 [...] 11:12 AM EDT documented in this encounter Progress Notes * Ana María Bryan MD - 07/04/2024 11:30 AM EDT SUBJECTIVE: Sofiya Gallegos is a 74 y.o. year old female who presents for follow up DM. Denies recent illness,injury, or hospitalization. Labs on 07/02/2024 showed an A1c of 7.8, hyperparathyroidism with normal calcium and phosphorus and aGFR of 55, her vitamin D levels were within normal limits. Last lipids on 01/13/2024 were within normal limits. Her blood sugar at home averages 183 over the past month, going anywhere between 70 and 400, mostlyhypoglycemia about 200s after lunchtime. She is off Jardiance due to recurrent UTIs. She is taking Lantus 12 units plus Humalog 3 times daily AC meals, but she is not very consistent with mealtime and portions, mainly due to high demand from her who is sick with a terminal condition she often cannot have meals at specific times. Acute Concerns: She has nasal congestion and sore throat on and off for approximately 2 to 3 weeks. She does not have any fever ,chills, headache or shortness of breath Social History Social History Narrative Not on file Patient Active Problem List Diagnosis Acute thoracic back pain Backache Chronic kidney disease (CKD) stage G3a/A2, moderately decreased glomerular filtration rate (GFR) between 45-59 mL/min/1.73 square meter and albuminuria creatinine ratio between 30-299 mg/g (CMS/HCC) Cough Diabetes mellitus (CMS/HCC) Diabetic nephropathy associated with type 2 diabetes mellitus (CMS/HCC) Essential hypertension Foot pain Herpes labialis Herpesvirus infection High cholesterol Hyperkalemia Multiple nodules of lung Neck pain Neuropathy Osteoporosis Primary insomnia Tubular adenoma of colon Gastrointestinal hemorrhage Iron deficiency anemia due to chronic blood loss Ischemic colitis (CMS/HCC) Hyperplastic colonic polyp UTI (urinary tract infection), bacterial Deep vein thrombosis (DVT) of brachial vein of right upper extremity (CMS/HCC) Symptomatic anemia Epigastric pain Diarrhea Postprandial abdominal pain in left upper quadrant Kidney transplant status COVID-19 Flu-like symptoms No family history on file. Review of Systems Constitutional: Negative for chills, fatigue and fever. HENT: Positive for congestion, rhinorrhea and sore throat. Negative for ear pain, nosebleeds, sinuspressure and trouble swallowing. Eyes: Negative for pain and discharge. Respiratory: Negative for cough, chest tightness and shortness of breath. Cardiovascular: Negative for chest pain, palpitations and leg swelling. Gastrointestinal: Negative for abdominal pain, blood in stool, constipation, diarrhea and nausea. Endocrine: Negative for polydipsia and polyuria. Genitourinary: Negative for dysuria, frequency, genital sores, pelvic pain and vaginal discharge. Musculoskeletal: Negative for back pain and neck pain. Skin: Negative for rash. Allergic/Immunologic: Negative for environmental allergies. Neurological: Negative for dizziness, seizures, weakness, light-headedness and headaches. Hematological: Negative for adenopathy. Psychiatric/Behavioral: Negative for agitation, behavioral problems, self-injury and suicidal ideas. OBJECTIVE: Vitals: 07/04/24 1112 07/04/24 1141 BP: (!) 174/81 (!) 140/80 BP Location: Left arm Right arm Patient Position: Sitting BP Cuff Size: Adult Pulse: 77 Resp: 18 Temp: 98.6 ??F (37 ??C) TempSrc: Oral Weight: 105 lb 12.8 oz (48 kg) Height: 4' 9 (1.448 m) Physical Exam HENT: Right Ear: Tympanic membrane and ear canal normal. Left Ear: Tympanic membrane and ear canal normal. Nose: Mucosal edema, congestion and rhinorrhea present. Rhinorrhea is clear. Right Turbinates: Swollen. Left Turbinates: Swollen. Mouth/Throat: Mouth: Mucous membranes are moist. Pharynx: Posterior oropharyngeal erythema present. No oropharyngeal exudate. Eyes: Pupils: Pupils are equal, round, and reactive to light. Cardiovascular: Rate and Rhythm: Regular rhythm. Pulses: Normal pulses. Heart sounds: Normal heart sounds. No murmur heard. Pulmonary: Breath sounds: Normal breath sounds. Abdominal: General: Bowel sounds are normal. Palpations: Abdomen is soft. Tenderness: There is no abdominal tenderness. Musculoskeletal: General: Normal range of motion. Cervical back: Neck supple. Skin: General: Skin is warm. Neurological: General: No focal deficit present. Mental Status: She is alert and oriented to person, place, and time. Psychiatric: Mood and Affect: Mood normal. Behavior: Behavior normal. Office Visit on 07/04/2024 Component Date Value Ref Range Status Glucose Blood, POC 07/04/2024 96 60 - 200 mg/dL Final QC Media Lot # 07/04/2024 [id number] Final Lot# Expiration Date 07/04/2024 10,[id number] Final Rapid Influenza A Ag 07/04/2024 Negative Negative, Indeterminate Final QC Media Lot # 07/04/2024 [id number] Final Lot# Expiration Date 07/04/2024 53,125 Final Rapid Influenza B Ag 07/04/2024 Negative Negative, Indeterminate Final QC Media Lot # 07/04/2024 [id number] Final Lot# Expiration Date 07/04/2024 53,125 Final Rapid COVID Ag 07/04/2024 Negative Final QC Media Lot # 07/04/2024 [id number] Final Lot# Expiration Date 07/04/2024 63,026 Final Problem List Items Addressed This Visit Diabetes mellitus (CMS/HCC) Uncontrolled, likely needs Humalog adjusted for carb load. Continue Lantus 12 units and follow-up with quotation clerk, she is off Jardiance due to side effects. Discussed importance of having small and fractioned meals I will follow-up in 3 to 4 months Referral to ophthalmology to [place] [facility] ([facility]) She has been referred to slate cutter operator for toenail trimming Relevant Orders POCT Glucose (Completed) Referral to Ophthalmology Flu-like symptoms Rapid viral test are negative today Take Tylenol as needed for sore throat and Flonase for nasal congestion + nasal saline. Take herbal teas and gargles as needed for sore throat Relevant Orders POCT Rapid Influenza A OSOM (Completed) POCT Rapid Influenza B OSOM (Completed) POCT Rapid Covid-19 BinaxNOW (Completed) Other Visit Diagnoses Seasonal allergic rhinitis due to other allergic trigger Relevant Medications fluticasone (Flonase) 50 MCG/ACT nasal spray Follow Up: Current Outpatient Medications on File Prior to Visit Medication Sig Dispense Refill Ascorbic Acid (vitamin C) 500 MG tablet TAKE 1 TABLET BY MOUTH EVERY MORNING 90 tablet 1 Aspirin Low Dose 81 MG EC tablet TAKE 1 TABLET BY MOUTH EVERY MORNING atorvastatin (Lipitor) 80 MG tablet TAKE 1 TABLET BY MOUTH EVERY EVENING 90 tablet 1 Blood Glucose Monitoring Suppl (ONE TOUCH ULTRA 2) w/Device kit USE DIRECTED denosumab (Prolia) 60 MG/ML solution prefilled syringe inject 1 milliliter by subcutaneous route every 6 months in the upper arm, upper thigh or abdomen docusate sodium (Colace) 100 MG capsule TAKE 1 CAPSULE BY MOUTH TWICE DAILY NEEDED 180 capsule 1 gabapentin (Neurontin) 100 MG capsule TAKE 1 CAPSULE BY MOUTH AT BEDTIME 90 capsule 1 glucose (Glutose) 40 % gel oral gel TAKE 1/2 TUBE BY MOUTH NEEDED HYPOGLYCEMIA DIRECTED 30 g 5 HumaLOG KWIKPEN 100 UNIT/ML injection INJECT 2-5 UNITS SUBCUTANEOUSLY THREE TIMES DAILY BEFORE MEALS DIRECTED Lancets (OneTouch Delica Plus [id number]) misc TEST BLOOD SUGAR 4 TIMES A DAY Lantus SoloStar 100 UNIT/ML pen INJECT 10 UNITS SUBCUTANEOUSLY EVERY EVENING lisinopril 2.5 MG tablet TAKE 1 TABLET BY MOUTH EVERY MORNING 90 tablet 1 melatonin 5 MG tablet TAKE 1 TABLET BY MOUTH AT BEDTIME 90 tablet 0 Molnupiravir 200 MG capsule Take 800 mg by mouth 2 times daily. Take 4 tabs (800 mg) po bid for 5 days. Nauruan label 40 capsule 0 mycophenolate (Myfortic) 180 MG EC tablet TAKE 1 TABLET BY MOUTH TWICE DAILY IN THE MORNING AND IN THE EVENING OneTouch Ultra Test test strip TEST BLOOD SUGAR FOUR TIMES DAILY 100 strip 11 pantoprazole (ProtoNix) 40 MG EC tablet TAKE 1 TABLET BY MOUTH TWICE DAILY IN THE MORNING AND IN THE EVENING 180 tablet 0 Pentips Generic Pen [place] 32G X 4 MM misc USE FOUR TIMES DAILY DIRECTED 100 each 5 polyethylene glycol, PEG, 3350 (MiraLax Mix-In [place]) 17 g packet Take 1 packet by mouth every day mixed with 8 oz water, juice, soda, coffee, or tea. 30 packet 0 predniSONE (Deltasone) 5 MG tablet TAKE 1 TABLET BY MOUTH EVERY MORNING tacrolimus (Prograf) 1 MG capsule TAKE 2 CAPSULES BY MOUTH TWICE DAILY IN THE MORNING AND EVENING traZODone (Desyrel) 100 MG tablet TAKE 1 TABLET BY MOUTH TWICE DAILY IN THE MORNING AND AT BEDTIME AFTER MEALS 60 tablet 3 Veltassa 8.4 g pack MIX 1 PACKAGE IN WATER AND TAKE DAILY DIRECTED Vitamin D High Potency 25 MCG (1000 UT) capsule TAKE 2 CAPSULES BY MOUTH ONCE DAILY IN THE MORNING [DISCONTINUED] Acetaminophen Extra Strength 500 MG tablet TAKE 1 TO 2 TABLETS BY MOUTH EVERY MORNING THEN TAKE 1 TABLET BY MOUTH EVERY 8 HOURS NEEDED FOR PAIN OR FOR FEVER [DISCONTINUED] fluticasone (Flonase) 50 MCG/ACT nasal spray USE 1-2 SPRAYS IN EACH NOSTRIL EVERY DAY NEEDED 48 g 0 [DISCONTINUED] Jardiance 25 MG TAKE 1 TABLET BY MOUTH EVERY MORNING No current facility-administered medications on file prior to visit. documented in this encounter Miscellaneous Notes * Assessment & Plan Note - Ana María Bryan MD - 07/04/2024 3:50 PM EDT Associated Problem(s): Flu-like symptoms Rapid viral test are negative today Take Tylenol as needed for sore throat and Flonase for nasal congestion + nasal saline. Take herbal teas and gargles as needed for sore throat * Assessment & Plan Note - Ana María Bryan MD - 07/04/2024 3:48 PM EDT Associated Problem(s): Diabetes mellitus ([facility]) Uncontrolled, likely needs Humalog adjusted for carb load. Continue Lantus 12 units and follow-up with quotation clerk, she is off Jardiance due to side effects. Discussed importance of having small and fractioned meals I will follow-up in 3 to 4 months Referral to ophthalmology to [place] [facility] ([facility]) She has been referred to slate cutter operator for toenail trimming documented in this encounter Plan of Treatment Upcoming Encounters Date Type Department Care Team (Late st Contact Info) Description 10/03/2024 11:30 AM EDT Office Visit [facility] [address] [place] [address] Ana María Bryan MD [address] [place] [address] Scheduled Referrals Name Type Priority Associated Diagnoses [...] unspecified whether stage 3a or 3b CKD (CMS/[facility]) documented in this encounter Results * POCT Rapid Covid-19 BinaxNOW (07/04/2024 11:35 AM EDT) Rapid COVID Ag Negative QC Media Lot # [id number] Lot# Expiration Date 63,026 Swab 07/04/2024 11:3 [...] Media Lot # [id number] Lot# Expiration Date ,025 Blood Capillary blood specimen / Unknown 07/04/2024 11:13 AM EDT Ana María Bryan MD POINT OF CARE TEST ENTER /EDIT ORDERABLES Final Result documented in this encounter Visit Diagnoses Diagnosis Type 2 diabetes mellitus with stage 3 chronic kidney disease, with long-term current use of insulin, unspecified whether stage 3a or 3b CKD (CMS/[facility]) Flu-like symptoms Seasonal allergic rhinitis due to other allergic trigger documented in this encounter Additional Health Concerns Assessment Noted Time PHQ-9 Depression Total Score: 1 04/13/19 23 10:26 AM EST documented as of this encounter Care Teams Lime Burner Relationship Specialty Start Date End Date Ana María Bryan MD [address] [place] [phone] PCP - General Family Medicine 03/26/18 documented as of this encounter
--- OUTSIDE RECORDS SUMMARY | 2024-07-06 21:12 | XMS_ITS | Encounter Summary ---
Author Organization [employer] Address [address] [facility] 7[address] [place] [address] Care Team Providers Care Assistant Merchandiser Name Role Phone Ana María Bryan MD Primary Care Provider + Encounter Details Date Type Department Care Team (Late Contact Info) Description 05/08/2022 [facility] [employer] [address] [place] [address] Ana María Bryan MD [address] [place] [address] Social History Tobacco Use Types Packs/Day Years [...] Description 10/03/2024 11:30 AM EDT Office Visit [facility] MEDICINE [address] [place] [address] Ana María Bryan MD [address] [place] [address] documented as of this encounter Visit Diagnoses Not on filedocumented in this encounter Additional Health Concerns Assessment Noted Time PHQ-9 Depression Total Score: 1 04/13/19 23 10:26 AM EST documented as of this encounter Care Teams Assistant Merchandiser Relationship Specialty Start Date End Date Ana María Bryan MD [address] [place] [address] PCP - General Family Medicine 03/26/18 documented as of this encounter
--- OUTSIDE RECORDS SUMMARY | 2024-07-06 21:12 | XMS_ITS | Encounter Summary ---
Author Organization [employer] Address [address] [facility] 7t [place] [address] Care Team Providers Care Behavioral Health Worker Name Role Phone Ana María Bryan [...] AM EDT Office Visit [facility] MEDICINE [address] [place] [address] Ana María Bryan MD [address] [place] [phone] documented as of this encounter Visit Diagnoses Not on filedocumented in this encounter Additional Health Concerns Assessment Noted Time PHQ-9 Depression Total Score: 1 04/13/19 23 10:26 AM EST documented as of this encounter Care Teams Behavioral Health Worker Relationship Specialty Start Date End Date Ana María Bryan MD [address] [place] [phone] PCP - General Family Medicine 03/26/18 documented as of this encounter
--- OUTSIDE RECORDS SUMMARY | 2024-07-06 21:12 | XMS_ITS | Encounter Summary ---
Author Organization [employer] Address [address] [facility] [address] [place] [address] Care Team Providers Care Principal Statistical Scientist Name Role Phone Ana María Bryan MD Primary Care Provider + Encounter Details Date Type Department Care Team (Latest Contact Info) Description 01/29/2019 Abstract [facility] CONVERSIONS Dental, Provider, DDS Social History Tobacco [...] Description 10/03/2024 11:30 AM EDT Office Visit [facility] MEDICINE [address] [place] [address] Ana María Bryan MD [address] [place] [address] documented as of this encounter Visit Diagnoses Not on filedocumented in this encounter Care Teams Principal Statistical Scientist Relationship Specialty Start Date End Date Ana María Bryan MD [address] [place] [address] PCP - General Family Medicine 03/26/18 documented as of this encounter
--- OUTSIDE RECORDS SUMMARY | 2024-07-06 21:12 | XMS_ITS | Clinical Summary ---
Author Organization [employer] Address [address] [facility] 7t [place] [address] Care Team Providers Care Transportation Program Director Name Role Phone Ana María Bryan [...] MEALS DIRECTED Active Lancets (OneTouch Delica Plus [id number]) [facility] TEST BLOOD SUGAR 4 TIMES A DAY [...] Active polyethylene glycol, PEG, 3350 (MiraLax Mix-In Newcomb) 17 g packetIndications: Slow transit constipation Take 1 packet by mouth every day mixed with 8 oz water, juice, soda, coffee, or tea. 30 packet 023 Active glucose (Glutose) 40 % gel oral gelIndications:Typ e 2 diabetes mellitus with stage 3 chronic kidney disease, with long-term current use of insulin, unspecified whether stage 3a or 3b CKD (CMS/[facility]) TAKE 1/2 TUBE BY MOUTH NEEDED HYPOGLYCEMIA DIRECTED 30 g 5 023 Active lisinopril 2.5 MG tablet TAKE 1 TABLET BY MOUTH EVERY MORNING 90 tablet 1 023 Active OneTouch Ultra Test test stripIndications:T ype 2 diabetes mellitus with stage 3 chronic kidney disease, with long-term current use of insulin, unspecified whether stage 3a or 3b CKD (CMS/[facility]) TEST BLOOD SUGAR FOUR TIMES DAILY 100 strip 11 024 Active Molnupiravir 200 MG capsule Take 800 mg by mouth 2 times daily. Take 4 tabs (800 mg) po bid for 5 days. Thai label 40 capsule 024 Active docusate sodium [...] tablet 1 024 Active Pentips Generic Pen [place] 32G X 4 MM misc USE FOUR [...] Active Problems Problem Noted Date Diagnosed Date Flu-like symptoms 07/04/2024 Assessment & Plan (07/04/2024 3:50 PM EDT): Rapid viral test are negative today Take Tylenol as needed for sore throat and Flonase for nasal congestion + nasal saline. Take herbal teas and gargles as needed for sore throat COVID-19 12/04/2023 Assessment & Plan (12/04/2023 4:58 [...] vs gastroparesis. r/o PUD. Refer to GI, [facility] does not accept patient's insurance. Will refer to [facility]. Counseled to drink herbal tea prior to [...] colonic polyp 03/24/2022 Overview (08/15/2023): Colonoscopy at [facility] on 03/15/22 (admitted due to rectal bleeding/ischemic [...] at least until august and FU with human resources coordinator. We discussed avoid prolonged rest, ambulation with [...] mg daily. Jardiance held at admission. -Monitor [id number] glucose with meals and nightly, and every 6 hours when n.p.o. -Insulin sliding scale with meals and nightly -Lantus given just 5 units at bedtime -Uptitrate insulin after diet is advanced Assessment & Plan (07/04/2024 3:48 PM EDT): Uncontrolled, likely needs Humalog adjusted for carb load. Continue Lantus 12 units and follow-up with b2b sales consultant, she is off Jardiance due to side effects. Discussed importance of having small and fractioned meals I will follow-up in 3 to 4 months Referral to ophthalmology to [facility] ([facility]) She has been referred to email production specialist for toenail trimming Assessment & Plan (08/15/2023 11:55 AM EDT): Controlled. A1c is at goal. Continue on Lantus 10 units she will lower to 8 units only if she has persistent blood sugar below 70. Counseled re more frequent low calorie/carb meals. Check fgstk 3x daily Encouraged physical activity as tolerated. FU in 3 months. F/u with b2b sales consultant Assessment & Plan (10/23/2022 5:09 PM EDT): [...] at goal. -She has follow up with Clinic Mgr next month. -Continue humalog sliding scale + [...] status post renal transplant - fu with hematology specialist - continue on Prograf + Mycophenolate Assessment [...] low dose lisinopril and fu with me traffic workforce representative in 3 weeks Check potassium next week. [...] she states she has never had an ND/stents or stroke and has never had any [...] Encounters Date Type Department Care Team Description 07/06/2024 Orders Only [facility] External Provider, [facility] 07/04/2024 11:30 AM EDT Office Visit [facility] [address] [place] [phone] Ana María Bryan MD Type 2 diabetes mellitus with stage 3 chronic kidney disease, with long-term current use of insulin, unspecified whether stage 3a or 3b CKD ([facility]); Flu-like symptoms; Seasonal allergic rhinitis due to other allergic trigger 07/04/2024 Abstract [facility] [address] [place] [address] Ana María Bryan MD 07/04/[address] [address] Ana María Bryan MD Results 07/04/2024 Travel 07/02/[address] [address] Ana María Bryan MD Chart prep 07/02/2024 Orders Only GENERIC EXTERNAL DATA DEPARTMENT Provider, Generic External Data 06/30/2024 Orders Only GENERIC EXTERNAL DATA DEPARTMENT Provider, Generic External Data 06/25/2024 Patient Outreach [facility] [address] [place] [address] Awilda Ijeoma Pre-visit Planning 06/22/2024 Refill [facility] [address] [place] [address] Ana María Bryan MD Upper gastrointestinal bleeding 05/02/2024 Orders Only GENERIC EXTERNAL DATA DEPARTMENT Provider, Generic External Data 04/23/2024 Refill [facility] [address] [place] [address] Ana María Bryan MD Primary insomnia from [...] 07/04/2024 11:12 AM EDT Plan of Treatment Upcoming Encounters Date Type Department Care Team (Late st Contact Info) Description 10/03/2024 11:30 AM EDT Office Visit [facility] [address] [place] [address] Ana María Bryan MD [address] [place] [address] Health Maintenance Due Date Last Done Comments CT Colonography 1950 FIT DNA/Cologuard 1950 FIT 1950 FOBT 1950 Sigmoidoscopy 1950 Alcohol/Substance Use Screening 1961 Hepatitis C Screening 06/28/1967 Hepatitis B Vaccines (2 of 3 - 19+ 3-dose series) 05/02/2022 04/04/2022 Eye Exam 06/23/2022 06/23/2021 COVID-19 Vaccine ( season) 2023 12/29/2022, 01/03/2022, [...] (2 - Td or Tdap) 03/09/2027 03/09/2017 Colonoscopy 03/15/2027 03/15/2022, 09/16/2019 Colorectal Cancer Screening 03/15/2027 Pneumococcal Vaccine: 50+ Years Completed 05/07/2018, 03/09/2017 [...] Name Priority Date/Time Associated Diagnosis Comments XR RIBS BILATERAL 4+ VW W PA CHEST Routine 07/06/2024 8:41 PM EDT POCT RAPID COVID ANTIGEN Routine 07/04/2024 11:35 AM EDT Flu-like symptoms POCT INFLUENZA B Routine 07/04/2024 11:3 5 AM EDT Flu-like symptoms POCT INFLUENZA A Routine 07/04/2024 11:3 5 AM EDT Flu-like symptoms POCT GLUCOSE Routine 07/04/2024 11:13 AM EDT Type 2 diabetes mellitus with stage 3 chronic kidney disease, with long-term current use of insulin, unspecified whether stage 3a or 3b CKD ([facility]) VITAMIN D,25-OH,TOTAL,IA Routine 07/02/2024 9:45 AM EDT [...] whether stage 3a or 3b CKD (CMS/HCC) HM COLONOSCOPY Routine 03/15/2022 from Last 3 Months or Most Recently Relevant to Health Maintenance Results * XR RIBS BILATERAL 4+ VW W PA CHEST (07/06/2024 8:41 PM EDT) Anatomical Region Laterality Modality Rib, Abdomen Bilateral Radiographic Madison ging 07/06/2024 8:41 PM EDT Narrative 07/06/2024 8:43 PM EDT ? [facility] ?[address] ?[place] [address] ?XRay Report ? Signed ? Patient: Sofiya Julian ?MR#: [id number] ?? [id number] ? : 1950 ?Acct:[id number] ? Age/Sex: 74 / F ?ADM Date: 07/06/24 ? Loc: HO.ED ? Attending Dr: ? Ordering Physician: Trini Connelly NP ?? Date of Service: 07/06/24 ?? Procedure(s): XR ribs BI min 4V w CXR1V ?? Accession Number(s): [id number] ? cc: Ana María Bryan MD; Trini Connelly NP ? CLINICAL HISTORY: right upper posterior rib pain after hitting in BR ? 4 view, chest and bilateral ribs ? Comparison: None ? Findings: ?? Deformities of the right posterior 6th 7th 8th 9th and 10th ribs likely ?? represent age indeterminate fractures some of which demonstrate features ?? of chronic non healed fractures. ?? The lungs are unremarkable. ? IMPRESSION: ?? Deformities of the right posterior 6th 7th 8th 9th and 10th ribs likely ?? represent age indeterminate fractures (Likely chronic). ? This document has been electronically signed by: Jalil Rivers MD on ?? 07/06/2024 20:41:08 ? Dictated By: ?Jalil Rivers MD ? Signed By: ?<Electronically signed by Jalil Rivers MD in OV> ?07/06/242041 ? DD/ 40 ? TD/TT: 07/06/242040 ? Mental Retardation Aide: ? Procedure Note Donotuseinterpreter, Image - 07/06/[address] [address] XRay Report Signed Patient: Sofiya Julian NMR#: [id number] : 1950Acct:[id number] Age/Sex: 74 / FADM Date: 07/06/24 Loc: HO.ED Attending Dr: Ordering Physician: Trini Connelly NP Date of Service: 07/06/24 Procedure(s): XR ribs BI min 4V w CXR1V Accession Number(s): [id number] cc: Ana María Bryan MD; Trini Connelly GUEST RELATIONS AGENT CLINICAL HISTORY: right upper posterior rib pain after hitting in BR 4 view, chest and bilateral ribs Comparison: None Findings: Deformities of the right posterior 6th 7th 8th 9th and 10th ribs likely represent age indeterminate fractures some of which demonstrate features of chronic non healed fractures. The lungs are unremarkable. IMPRESSION: Deformities of the right posterior 6th 7th 8th 9th and 10th ribs likely represent age indeterminate fractures (Likely chronic). This document has been electronically signed by: Jalil Rivers MD on 07/06/2024 20:41:08 Dictated By: Jalil Rivers MD Signed By: <Electronically signed by Jalil Rivers MD in OV> 07/06/242041 DD/ 40 TD/TT: 07/06/242040 Mental Retardation Aide: [facility] External Provider IMG XR PROCEDURES Edited Result - Final * POCT Rapid Covid-19 BinaxNOW (07/04/2024 11:35 AM EDT) Rapid COVID Ag Negative QC Media Lot # [id number] Lot# Expiration Date 63,026 Swab 07/04/2024 11:3 [...] * POCT Glucose (07/04/2024 11:13 AM EDT) Pathologist [facility] Glucose Blood, POC 96 60 - 200 mg/dL QC Media Lot # [id number] Lot# Expiration Date Blood Capillary blood specimen / Unknown 07/04/2024 11:13 AM EDT Ana María Bryan MD POINT OF CARE TEST ENTER /EDIT ORDERABLES Final Result * Vitamin D, 25-Hydroxy, Total, Immunoassay (07/02/2024 9:45 AM EDT) Pathologist [facility] Vitamin D 25-OH Total 44.8 >30 ng/mL [facility] Comment: Health Based Reference Values*< 20 ??ng/mL ??Pdxoctcec84-10 ng/mL ??Insufficient> 30 ??ng/mL ??Sufficient*Carlos Manuel BERRY. [...] ORDERAB LES Final Result Performing Organization Address City/[facility]/ZIP Co de Phone Number [facility] [address] [place] [phone] * (ABNORMAL) PTH, Intact Without Calcium (07/02/2024 9:45 AM EDT) Parathyroid Hormone, Intact 176.6(H) 8.7 - 77.1 pg/mL [facility] 07/02/2024 9:45 AM EDT 07/02/2024 9:45 AM EDT Generic External Data Provider LAB BLOOD ORDERAB LES Final Result Performing Organization Address City/[facility]/ZIP Co de Phone Number [facility] [address] [place] [phone] * (ABNORMAL) Hemoglobin A1c (07/02/2024 9:45 AM EDT) Hemoglobin A1c 7.8(H) <6.0 % [facility] Comment:Hemoglobin A1C Refer ence Range Adults: 4.8 - 6.0 % Non diabetic: < 6.0 % Goal: < 7.0 %Additional Action Suggested: > 8.0 %Note: Hemoglobin A1c results are invalid for patients with abnormal amounts of HbF. Blood transfusions may impact the HbA1c concentration in the patient sample. Estimated Average Glucose 177 mg/dL [facility] Comment:eAG = Estimated ave rage glucose which is %A1C expressed asaverage glucose, using the formula of the W0G-XkruwjhUjajwpq Glucose study (ADAG), Diabetes Care, Vol.31,#8,Oct. 2007 07/02/2024 9:45 AM EDT 07/02/2024 9:45 AM EDT Generic External Data Provider LAB BLOOD ORDERAB LES Final Result Performing Organization Address [facility]/ZIP Co de Phone Number [facility] [address] [place] [phone] * Albumin (07/02/2024 9:45 AM EDT) Albumin Level 4.0 3.5 - 5.0 g/dL [facility] 07/02/2024 9:45 AM EDT 07/02/2024 9:45 AM EDT Generic External Data Provider LAB BLOOD ORDERAB LES Final Result Performing Organization Address [facility] Co de Phone Number [facility] [address] [place] [phone] * (ABNORMAL) Basic Metabolic Panel (07/02/2024 9:45 AM EDT) Sodium 140 135 - 145 mmol/L [facility] Potassium 4.1 3.3 - 5.1 mmol/L [facility] Chloride 106 96 - 108 mmol/L [facility] Carbon Dioxide 24 22 - 29 mmol/L [facility] Anion Gap 14 12 - 20 [facility] Urea Nitrogen (BUN) 33(H) 9 - 16 mg/dL [facility] Creatinine, Serum 0.99 0.5 - 1.4 mg/dL [facility] Estimated Glomerular Filt Rate 55 [facility] Comment:Chronic Kidney Disea se: Estimated GFR < 60 mL/min/1.41a8Ojuejs Kidney Disease: Estimated GFR < 15 mL/min/1.73m2 Glucose 77 60 - 115 mg/dL [facility] Calcium 9.7 8.4 - 10.2 mg/dL [facility] 07/02/2024 9:45 AM EDT 07/02/2024 9:45 AM EDT us Generic External Data Provider LAB BLOOD ORDERAB LES Final Result Performing Organization Address City/[facility]/ZIP Co de Phone Number [facility] [address] [place] [phone] * Glucose, Whole Blood (06/30/2024 1:37 PM EDT) Only the most recent of2 resultswithin the time period is included. Glucose, Whole Blood 97 60 - 115 mg/dL [facility] Comment:METER #: [id number] Testing performed in the Endocrinology Department [address] , [address], [facility]. 06/30/2024 1:37 PM EDT 06/30/2024 1:40 PM EDT Generic External Data Provider LAB BLOOD ORDERAB LES Final Result Performing Organization Address City/[facility]/ZIP Co de Phone Number [facility] [address] [place] [phone] * Lipid Panel with Reflex to Direct LDL (01/01/2024 10:37 AM EDT) Triglycerides 97 <150 mg/dL [facility] Comment:Desirable Triglyceri de: less than 150 mg/dLBorderline High Triglyceride 150-199 mg/dLHigh Triglyceride: 200-499 mg/dLVery High Triglyceride: greater than or equal to 5OO mg/dL Cholesterol 138 <200 mg/dL [facility] Comment:Desirable Cholestero l: less than 200 mg/dLBorderline High Cholesterol: 200-239 mg/dLHigh Cholesterol: greater than 239 mg/dL LDL Cholesterol Calculated 61 <100 mg/dL [facility] Comment:Desirable LDL: less than 100 mg/dLNear Optimal/Above Optimal LDL: 110- 129 mg/dLBorderline High LDL: 130-159 mg/dLHigh LDL: 160-189 mg/dLVery High LDL: greater than or equal to 190 mg/dL HDL Cholesterol 58 >40 mg/dL [facility] Comment:Desirable HDL: great er than 40 mg/dL Note: This HDL assay may give artificially low results in patients with liver disease. Blood 01/01/2024 10:3 7 AM EDT 01/01/2024 11:26 AM EDT us Ana María Bryan MD LAB BLOOD ORDERABLES Fin al Result [facility] [address] [place] [phone] * Colonoscopy (03/15/2022) Colonoscopy Normal Normal us Ana María Bryan MD HEALTH MAINTENANCE Final Result from Last 3 Months or Most Recently Relevant to Health Maintenance Insurance [facility] Care Teams Transportation Program Director Relationship Specialty Start Date End Date Ana María Bryan MD [address] [place] [phone] PCP - General Family Medicine 03/26/18
--- OUTSIDE RECORDS SUMMARY | 2024-07-06 21:12 | XMS_ITS | Encounter Summary ---
Author Organization [employer] Address [address] [facility] 7t [place] [address] Care Team Providers Care Xerox Machine Assembler Name Role Phone Ana María Bryan MD Primary Care Provider + Encounter Details Date Type Department Care Team (Late st Contact Info) Description 07/06/2024 Orders Only [place] [facility] External Provider, [facility] Social History Tobacco Use Types Packs/Day Years [...] Description 10/03/2024 11:30 AM EDT Office Visit [facility] [address] [place] [address] Ana María Bryan MD [address] [place] [address] documented as of this encounter Procedures Procedure Name Priority Date/Time Associated Diagnosis Comments XR RIBS BILATERAL 4+ VW W PA CHEST Routine 07/06/2024 8:41 PM EDT documented in this encounter Results * XR RIBS BILATERAL 4+ VW W PA CHEST (07/06/2024 8:41 PM EDT) Anatomical Region Laterality Modality Rib, Abdomen Bilateral Radiographic Madison ging 07/06/2024 8:41 PM EDT Narrative 07/06/2024 8:43 PM EDT ? [facility] ?[address] ?[place] [address] ?XRay Report ? Signed ? Patient: Jose Gallegos,Sofiya N ?MR#: [id number] ?? [id number] ? : 1950 ?Acct:[id number] ? Age/Sex: 74 / F ?ADM Date: 04/13/25 ? Loc: HO.ED ? Attending Dr: ? Ordering Physician: Trini Connelly NP ?? Date of Service: 07/06/24 ?? Procedure(s): XR ribs BI min 4V w CXR1V ?? Accession Number(s): [id number] ? cc: Ana María Bryan MD; Trini [...] ? DD/ 40 ? TD/TT: 07/06/242040 ? Louver Mortiser Operator: ? Procedure Note Suad Newsome - 07/06/[address] [address] XRay Report Signed Patient: Sofiya Julian NMR#: [id number] : 1950Acct:[id number] Age/Sex: 74 / FADM Date: 07/06/24 Loc: HO.ED Attending Dr: Ordering Physician: Trini Connelly NP Date of Service: 07/06/24 Procedure(s): XR ribs BI min 4V w CXR1V Accession Number(s): [id number] cc: Ana María Bryan MD; Trini Connelly NP CLINICAL HISTORY: right upper posterior rib pain [...] in OV> 07/06/242041 DD/ 40 TD/TT: 07/06/242040 Louver Mortiser Operator: [facility] External Provider IMG XR PROCEDURES Edited Result - Final documented in this encounter Visit Diagnoses Not on filedocumented in this encounter Additional Health Concerns Assessment Noted Time PHQ-9 Depression Total Score: 1 04/13/19 23 10:26 AM EST documented as of this encounter Care Teams Xerox Machine Assembler Relationship Specialty Start Date End Date Ana María Bryan MD [address] [place] [phone] PCP - General Family Medicine 03/26/18 documented as of this encounter
--- OUTSIDE RECORDS SUMMARY | 2024-07-06 21:12 | XMS_ITS | Clinical Summary ---
Author Organization [facility] Address [address] [place] [phone] Phone Care Team Providers Care State Epidemiologist Name Role Phone Ana María Bryan MD Primary Care Provider [phone] Allergies Active Allergy Reactions Criticality Noted Date [...] misc 1 Active Lancets (OneTouch Delica Plus Kpvnqk30C) misc TEST BLOOD SUGAR 4 TIMES A [...] mg daily. Jardiance held at admission. -Monitor syait-wf-twib glucose with meals and nightly, and every [...] tolerated. FU in 3 months. F/u with mess cook Type 2 diabetes mellitus without complication Overview [...] 06/24/2024 Orders Only [facility] [address] [phone] Bruce Galarza MD Kidney transplant status; Renal disorder due to type 2 diabetes mellitus <Other diabetic kidney complication> (HCC) 06/23/2024 Refill [facility] [address] [place] [phone] Sloane Bonner MA Proteinuria, not otherwise specified 06/20/2024 10:45 AM EDT Office Visit [facility] [place] [id number] [phone] Bruce Galarza MD Kidney transplant status (Primary [...] Office Visit [facility] [address] [phone] Bruce Galarza MD [address] [phone] Health Maintenance Due Date Last [...] Pneumococcal Vaccine: 50+ Years Completed 05/07/2018, 03/09/2017 Pneumococcal Vaccine: Peds (0 to 5 Years) and At-Risk Patients (6 to 49 Years) Discontinued 05/07/2018, 03/09/2017 Hepatitis B Vaccine Aged Out [...] Urine >30(A) 0 - 5 /hpf [facility] RBC, Urine None seen 0 - 2 /hpf [facility] Squamous Epithelial, Urine 0-10 0 - 10 /hpf [facility] Casts None seen None seen /lpf [facility] Bacteria, Urine Many(A) None seen/Few [facility] 06/10/2024 10:4 5 AM EDT 06/10/2024 us Bruce Galarza MD LAB MICROBIOLOGY - GENERAL OR DERABLES Final Result [facility] [address] [place] [phone] * Tacrolimus level (06/10/2024 10:45 AM EDT) Tacrolimus Lvl 7.3 5.0 - 20.0 ng/mL [facility] Comment: Target steady state trough concentration for [...] 06/10/2024 10:4 5 AM EDT 06/10/2024 Narrative [facility] - 06/12/2024 7:05 PM EDT Test(s) [id number] (FK506), Blood was developed and its performance characteristics determined by [employer]. It has not been cleared or approved by the Food and Drug Administration. Bruce Galarza MD LAB BLOOD ORDERABLES Final Re sult Performing Organization Address City/[facility]/ZIP Co de Phone Number [facility] [place] [address] * (ABNORMAL) Protein, Total, Random Urine w/Creatinine (Protein/Creat Ratio) (06/10/2024 10:45 AM EDT) Creatinine, Ur 73.9 Not Estab. mg/dL [facility] Protein, Ur 17.6 Not Estab. mg/dL [facility] Urine Protein/Creati nine Ratio 238(H) 0 - 200 mg/g creat [facility] 06/10/2024 10:4 5 AM EDT 06/10/2024 Bruce Galarza MD LAB URINE ORDERABLES Final Re sult Performing Organization Address City/[facility]/ZIP Co de Phone Number [facility] [address] [place] [address] * (ABNORMAL) Urine Albumin / Creatinine Ratio (06/10/2024 10:45 AM EDT) [facility] Albumin, Urine 35.6 Not Estab. ug/mL [facility] Albumin/Creatin ine Ratio 48(H) 0 - 29 mg/g creat [facility] Comment: ? Normal: ?0 - ??29 ? Moderately increased: 30 - 300 ? Severely increased: ? >300 06/10/2024 10:4 5 AM EDT 06/10/2024 us Bruce Galarza MD LAB URINE ORDERABLES Final Re sult [facility] [address] [place] [phone] * (ABNORMAL) Urinalysis with microscopic (06/10/2024 10:45 AM EDT) [facility] Specific [place], Urine 1.023 1.005 - 1.030 [facility] pH Urine 5.5 5.0 - 7.5 [facility] [phone] Color, Urine Yellow Yellow [facility] Appearance Urine Clear Clear [facility] [place] WBC Esterase Urine 2+(A) Negative [facility] Protein, Ur Trace Negative/Tr mindy [facility] Glucose, Ur 3+(A) Negative [facility] Ketones, Urine Negative Negative [facility] [place] Blood Urine Negative Negative [facility] Bilirubin Urine Negative Negative [facility] [place] [phone] Urobilinogen Urine 0.2 0.2 - 1.0 mg/dL [facility] Nitrite, Urine Positive(A) Negative [facility] [place] [phone] Microscopic Examination See below: [facility] Comment:Microscopic was rachell cated and was performed. 06/10/2024 10:4 5 AM EDT 06/10/2024 us Bruce Galarza MD LAB URINE ORDERABLES Final Re sult [facility] [address] [place] [address] * (ABNORMAL) Renal Function Panel (06/10/2024 10:45 AM EDT) Glucose 95 70 - 99 mg/dL [facility] BUN 40(H) 8 - 27 mg/dL [facility] Creatinine 1.20(H) 0.57 - 1.00 mg/dL [facility] eGFR CKD-EPI CR 2020 47(L) >59 mL/min/1.7 3 [facility] BUN/Creatinine Ratio 33(H) 12 - 28 [facility] Sodium 142 134 - 144 mmol/L [facility] Potassium 4.4 3.5 - 5.2 mmol/L [facility] Chloride 102 96 - 106 mmol/L [facility] Bicarbonate (CO2) 24 20 - 29 mmol/L [facility] Calcium 10.3 8.7 - 10.3 mg/dL [facility] Albumin 4.3 3.8 - 4.8 g/dL [facility] Phosphorus 4.2 3.0 - 4.3 mg/dL [facility] 06/10/2024 10:4 5 AM EDT 06/10/2024 Bruce Galarza MD LAB BLOOD ORDERABLES Final Re sult [facility] [address] [place] [address] * (ABNORMAL) Hemoglobin A1c (05/31/2022 10:19 AM EST) Hemoglobin A1C 6.8(H) (4.0-5.6) % [facility] Comment: MONITORING: In known diabetic patients, hemoglobin A1c targets should be discussed with health care provider. DIAGNOSTIC USE: ??The [place] Diabetes Association (ADA) and the World Health [...] Supplement 1 Testing performed or reported by [facility], a Service of [facility], [address] [place] [address] Carlene Prasad MD, Recycle Worker [facility]# [id number] Blood (Blood, Venous) 05/31/2022 10:19 AM EST 05/31/2022 10:20 AM EST Olivia Trujillo MD LAB BLOOD ORDERABLES Final Resu lt [facility] from Last 3 Months or Most Recently Relevant to Health Maintenance Insurance [employer] Dual MCR/PAUL ([id number]) [employer] Dual MCR/PAUL ([id number]) Care Teams State Epidemiologist Relationship Specialty Start Date End Date Ana María Bryan MD [address] [place] [phone] PCP - General 04/05/20
--- OUTSIDE RECORDS SUMMARY | 2024-07-06 21:12 | XMS_ITS | Encounter Summary ---
Author Organization [employer] Address [address] [facility] 7t [place] [address] Care Team Providers Care Welding Process Engineer Name Role Phone Ana María Bryan MD Primary Care Provider + Encounter Details Date Type Department Care Team (Late st Contact Info) Description 03/17/2022 Orders Only [facility] MEDICINE [address] [place] [phone] Dary Nuno MD [address] [place] [address] Acute deep vein thrombosis (DVT) of proximal [...] 10/03/2024 11:30 AM EDT Office Visit [facility] [address] [place] [phone] Ana María Bryan MD [address] [place] [address] documented as of this encounter Visit Diagnoses Diagnosis Acute deep vein thrombosis (DVT) of proximal vein of right lower extremity (CMS/HCC)- Primary documented in this encounter Care Teams Welding Process Engineer Relationship Specialty Start Date End Date Ana María Bryan MD [address] [place] [phone] PCP - General Family Medicine 03/26/18 documented as of this encounter
--- OUTSIDE RECORDS SUMMARY | 2024-07-06 21:12 | XMS_ITS | Encounter Summary ---
Author Organization [employer] Address 75 [facility] 7t [place] [address] Care Team Providers Care Turning Sander Tender Name Role Phone Ana María Bryan MD Primary Care Provider + Reason for Visit * Reason Onset Date Comments Results 07/04/2024 Encounter Details Date Type Department Care Team ([facility] st Contact Info) Description 07/04/2024 Telephone [facility] MEDICINE [address] [place] [address] Ana María Bryan MD [address] [place] [address] Results Social History Tobacco Use Types Packs/Day Years [...] Telephone Encounter - Bisi Nelson MA - 07/04/2024 4:18 PM EDT [employer] updated. * Telephone Encounter - Bisi Nelson MA - 07/04/2024 4:15 PM EDT ----- Message from Ana María Bryan MD sent at 07/04/2024 3:45 PM EDT ----- Please update 03/15/2022 colonoscopy at [facility] next 1 due on 02/2027 documented in this encounter Plan of Treatment Upcoming Encounters Date Type Department Care Team (Late st Contact Info) Description 10/03/2024 11:30 AM EDT Office Visit [facility] [address] [place] [address] Ana María Bryan MD [address] [place] [address] documented as of this encounter Visit Diagnoses Not on filedocumented in this encounter Additional Health Concerns Assessment Noted Time PHQ-9 Depression Total Score: 1 04/13/19 23 10:26 AM EST documented as of this encounter Care Teams Turning Sander Tender Relationship Specialty Start Date End Date Ana María Bryan MD [address] [place] [address] PCP - General Family Medicine 03/26/18 documented as of this encounter
--- OUTSIDE RECORDS SUMMARY | 2024-07-06 21:12 | XMS_ITS | Encounter Summary ---
Author Organization [employer] Address 75 [facility] 7t [place] [address] Care Team Providers Care Manager Program Name Role Phone Ana María Bryan MD Primary Care Provider + Encounter Details Date Type Department Care Team (Late st Contact Info) Description 07/04/[address] [facility] MEDICINE [address] [place] [address] Ana María Bryan MD [address] [place] [address] Social History Tobacco Use Types Packs/Day Years [...] [facility] MEDICINE [address] [place] [phone] Ana María Bryan MD [address] [place] [address] documented as of this encounter Procedures Procedure Name Priority Date/Time Associated Diagnosis Comments COLONOSCOPY Routine 03/15/2022 documented in this encounter Results * Colonoscopy (03/15/2022) Colonoscopy Normal Normal Ana María Bryan MD HEALTH MAINTENANCE Final Result documented in this encounter Visit Diagnoses Not on filedocumented in this encounter Additional Health Concerns Assessment Noted Time PHQ-9 Depression Total Score: 1 04/13/19 23 10:26 AM EST documented as of this encounter Care Teams Manager Program Relationship Specialty Start Date End Date Ana María Bryan MD [address] [place] [phone] PCP - General Family Medicine 03/26/18 documented as of this encounter
--- OUTSIDE RECORDS SUMMARY | 2024-07-06 21:12 | XMS_ITS | Encounter Summary ---
Author Organization [employer] Address 75 [facility] 7t [place] [address] Care Team Providers Care Mouthpiece Maker Name Role Phone Ana María Bryan MD Primary Care Provider + Reason for Visit * Reason Onset Date Comments Chart prep 07/02/2024 Encounter Details Date Type Department Care Team ([facility] st Contact Info) Description 07/02/2024 Telephone [facility] [address] [place] [address] Ana María Bryan MD [address] [place] [address] Chart prep Social History Tobacco Use Types [...] Description 10/03/2024 11:30 AM EDT Office Visit [facility] [address] [place] [address] Ana María Bryan MD [address] [place] [address] documented as of this encounter Visit Diagnoses Not on filedocumented in this encounter Additional Health Concerns Assessment Noted Time PHQ-9 Depression Total Score: 1 04/13/19 23 10:26 AM EST documented as of this encounter Care Teams Mouthpiece Maker Relationship Specialty Start Date End Date Ana María Bryan MD [address] [place] [phone] PCP - General Family Medicine 03/26/18 documented as of this encounter
--- OUTSIDE RECORDS SUMMARY | 2024-07-06 21:12 | XMS_ITS | Encounter Summary ---
Author Organization [employer] Address 75 [facility] 7t [place] [address] Care Team Providers Care Legal Aid Name Role Phone Ana María Bryan MD Primary Care Provider + Encounter Details Date Type Department Care Team (Late st Contact Info) Description 05/11/2022 Orders Only [facility] MEDICINE [address] [place] [address] Vandana Ledesma DO [address] [place], [place] [phone] Social History Tobacco Use Types Packs/Day Years [...] Description 10/03/2024 11:30 AM EDT Office Visit [facility] MED[facility] [address] [place] [address] Ana María Bryan MD [address] [place] [address] documented as of this encounter Visit Diagnoses Not on filedocumented in this encounter Additional Health Concerns Assessment Noted Time PHQ-9 Depression Total Score: 1 04/13/19 23 10:26 AM EST documented as of this encounter Care Teams Legal Aid Relationship Specialty Start Date End Date Ana María Bryan MD [address] [place] [address] PCP - General Family Medicine 03/26/18 documented as of this encounter
--- OUTSIDE RECORDS SUMMARY | 2024-07-06 21:12 | XMS_ITS | Encounter Summary ---
Author Organization [employer] Address 75 [facility] 7t [place] [address] Care Team Providers Care Professor Of Violin Name Role Phone Ana María Bryan MD [...] t he electric, gas, oil or water [employer] threatened to shut off services in your [...] 11:30 AM EDT Office Visit [facility] MEDICINE [address] [place], [place] [phone] Ana María Bryan MD [address] [place] [address] documented as of this encounter Procedures Procedure [...] Vitamin D 25-OH Total 44.8 >30 ng/mL [facility] Comment: Health Based Reference Values*< 20 ??ng/mL ??Nyidcrtgm19-58 ng/mL ??Insufficient> 30 ??ng/mL ??Sufficient*Carlos Manuel BERRY. [...] ORDERAB LES Final Result Performing Organization Address [facility]/ZIP Co de Phone Number [facility] [address] [place] [phone] * Albumin (07/02/2024 9:45 AM EDT) Albumin Level 4.0 3.5 - 5.0 g/dL [facility] 07/02/2024 9:45 AM EDT 07/02/2024 9:45 AM EDT us Generic External Data Provider LAB BLOOD ORDERAB LES Final Result Performing Organization Address [facility]/ZIP Co de Phone Number [facility] [address] [place] [phone] * (ABNORMAL) Basic Metabolic Panel (07/02/2024 9:45 AM EDT) Sodium 140 135 - 145 mmol/L [facility] Potassium 4.1 3.3 - 5.1 mmol/L [facility] Chloride 106 96 - 108 mmol/L [facility] Carbon Dioxide 24 22 - 29 mmol/L [facility] Anion Gap 14 12 - 20 [facility] Urea Nitrogen (BUN) 33(H) 9 - 16 mg/dL [facility] Creatinine, Serum 0.99 0.5 - 1.4 mg/dL [facility] Estimated Glomerular Filt Rate 55 [facility] Comment:Chronic Kidney Disea se: Estimated GFR < 60 mL/min/1.23b8Vnjlqk Kidney Disease: Estimated GFR < 15 mL/min/1.73m2 Glucose 77 60 - 115 mg/dL [facility] Calcium 9.7 8.4 - 10.2 mg/dL [facility] 07/02/2024 9:45 AM EDT 07/02/2024 9:45 AM EDT Generic External Data Provider LAB BLOOD ORDERAB LES Final Result Performing Organization Address City/[facility]/ZIP Co de Phone Number [facility] [address] [place] [phone] * (ABNORMAL) PTH, Intact Without Calcium (07/02/2024 9:45 AM EDT) Parathyroid Hormone, Intact 176.6(H) 8.7 - 77.1 pg/mL [facility] 07/02/2024 9:45 AM EDT 07/02/2024 9:45 AM EDT us Generic External Data Provider LAB BLOOD ORDERAB LES Final Result Performing Organization Address City/[facility]/ZIP Co de Phone Number [facility] [address] [place] [phone] * (ABNORMAL) Hemoglobin A1c (07/02/2024 9:45 AM EDT) Hemoglobin A1c 7.8(H) <6.0 % [facility] Comment:Hemoglobin A1C Refer ence Range Adults: 4.8 - 6.0 % Non diabetic: < 6.0 % Goal: < 7.0 %Additional Action Suggested: > 8.0 %Note: Hemoglobin A1c results are invalid for patients with abnormal amounts of HbF. Blood transfusions may impact the HbA1c concentration in the patient sample. Estimated Average Glucose 177 mg/dL [facility] Comment:eAG = Estimated ave rage glucose which is %A1C expressed asaverage glucose, using the formula of the K3L-AvkxtxoJfwrnlq Glucose study (ADAG), Diabetes Care, Vol.31,#8,Oct. 2007 07/02/2024 9:45 AM EDT 07/02/2024 9:45 AM EDT us Generic External Data Provider LAB BLOOD ORDERAB LES Final Result [facility] [address] [place] [phone] documented in this encounter Visit Diagnoses Not on filedocumented in this encounter Additional Health Concerns Assessment Noted Time PHQ-9 Depression Total Score: 1 04/13/19 23 10:26 AM EST documented as of this encounter Care Teams Professor Of Violin Relationship Specialty Start Date End Date Ana María Bryan MD [address] [place] [phone] PCP - General Family Medicine 03/26/18 documented as of this encounter
--- OUTSIDE RECORDS SUMMARY | 2024-07-06 21:12 | XMS_ITS | Clinical Summary ---
Author Organization [address] [facility] Address [address] [place] [address] Phone Care Team Providers Care Occupational Health Manager Name Role Phone Ana María Bryan MD Primary Care Provider [phone] Encounters Date Type Department Care Team Description 05/20/2024 10:30 AM EST Office Visit [facility] [place] [phone] [phone] Chris Urrutia DPM Controlled type 2 diabetes [...] 07/22/2024 10:15 AM EDT Office Visit Orthopedic [place] [phone] [phone] Chris Urrutia DPM [address] [address] Health Maintenance Due Date Last Done Comments [...] from Last 3 Months Insurance [address] [place] [address] [employer] Care Teams Occupational Health Manager Relationship Specialty Start Date End Date Ana María Bryan MD [address] [place] [phone] PCP - General Internal Medicine 02/06/24
[2024-07-06 21:42] LABS: Appearance Urine Turbid; Color Urine Yellow; Glucose Urine UA >=1000 mg/dL (Negative); Leukocyte Esterase Urine Large (3+) (Negative); Nitrite Urine Negative (Negative); PH 5.5 (5.0-9.0); UMIC TRIGGER UACC YES; Urine Blood Small (1+) (Negative); Urine Ketones Negative (Negative); Urine Protein Trace mg/dL (Neg-Trace)
[2024-07-06 21:58] LABS: Bacteria Urine 3+ (None Seen); Hyaline Casts Urine 0-2 /LPF (0-2); UACC Culture Trigger YES; WBC Clumps Urine Present; WBC Urine >50 /HPF (0-5)
[2024-07-06] MEDS: oxyCODONE HCl Immed Release 5 MG TABLET PO (21:59)
[2024-07-06 23:14] VITALS: BP 175/75; PULSE 75; RESP 14; TEMP 36.5; O2SAT 94
[2024-07-06] MEDS: cefuroxime axetiL 500 MG TABLET PO (23:16)
[2024-07-06 23:20] VITALS: BP 175/75; PULSE 75; RESP 14; TEMP 36.5; O2SAT 94
== END 2024-07-06 23:21 | disposition home or self-care (01) ==
PROVIDERS: Emergency Provider Internal Medicine; PCP Internal Medicine
DX: N39.0 Urinary tract infection, site not specified (principal); L08.9 Local infection of the skin and subcutaneous tissue, unspecified; M84.48XA Pathological fracture, other site, initial encounter for fracture; R42 Dizziness and giddiness; R07.81 Pleurodynia; I10 Essential (primary) hypertension; E11.9 Type 2 diabetes mellitus without complications; M54.9 Dorsalgia, unspecified; Z79.4 Long term (current) use of insulin; Z79.899 Other long term (current) drug therapy
CPT/HCPCS: 71111; 71250; 81001; 87086; 87088; 87186; 99284

== ENCOUNTER → 2024-07-06 20:06 | Outpatient (BNV) | payer OTHER, SELFPAY | PROVIDERS: PCP Internal Medicine; Visit Provider Student in an Organized Health Care Education/Training Program | DX: S22.41XA Multiple fractures of ribs, right side, initial encounter for closed fracture (principal); R91.1 Solitary pulmonary nodule; K44.9 Diaphragmatic hernia without obstruction or gangrene; I70.0 Atherosclerosis of aorta | CPT/HCPCS: 71111; 71250 ==

== ENCOUNTER 2024-07-08 10:16 | Outpatient (AMB) | payer OTHER, SELFPAY ==
--- NOTE | 2024-07-08 10:17 | MHC.OFFVIS ---
Vital Signs 07/08/24 10:19 Height 4 ft 9.36 in Weight 106 lb 7.732 oz BMI 22.8 BP 132/50 L Blood Pressure Location Rt brachial Position Sitting Pulse 77 Pulse Source Pulse Oximeter Pulse Oximetry (%) 98 Oxygen Delivery Method Room Air Intake Visit Reasons: Osteoporosis/prolia injection Intake Note: Patient present today for Osteoporosis follow up. Surveillance System Monitor Name: [id number] rhett Information Interpreted: non-clinical & clinical Accompanied by: Daughter tony Clark diphenhydramine [From Benadryl] Adverse Reaction (Verified 07/08/24 10:23) Anxiety Medication List - Last Reconciled 07/08/24 by Julius Pelletier MD acetaminophen 500 mg PO NEEDED PRN apixaban (Eliquis) 5 mg PO DAILY ascorbic acid (vitamin C) (Vitamin C) 500 mg PO QAM atorvastatin 80 mg PO BEDTIME blood sugar diagnostic ([employer] Verio test strips) 4 times in day blood-glucose meter ([employer] Verio Flex Meter) As directed blood-glucose sensor ([employer] G7 Sensor device) Use daily As directed to monitor glucose. change q 10 days cefuroxime axetil 500 mg PO BID 7 days cholecalciferol (vitamin D3) (Vitamin D3) 50 mcg (2 x 25 mcg (1,000 unit)) PO QAM docusate sodium 100 mg PO BID ferrous sulfate 325 mg PO BID fluticasone propionate 50 mcg/actuation 1 - 2 sprays intranasal DAILY PRN gabapentin 100 mg PO DAILY insulin glargine (Lantus Solostar U-100 Insulin) 15 units (0.15 mL) subcut QPM insulin lispro (Humalog KwikPen (U-100) Insulin) 2 - 5 units (0.02 - 0.05 mL) subcut TID lancets (Microinoxuch Delica Plus Lancet) TEST BLOOD SUGAR 4 TIMES A DAY lisinopril 2.5 mg PO QAM melatonin 5 mg PO BEDTIME molnupiravir (Lagevrio) mg PO mycophenolate sodium 180 mg PO BID oxycodone 5 mg PO Q6H PRN pantoprazole 40 mg PO DAILY pen needle, diabetic (BD Florencia 2nd Gen Pen Needle) twice a day prednisone 5 mg PO DAILY tacrolimus 3 mg PO BID trazodone 200 mg PO BEDTIME PRN HPI Comments Details: 74 yo female today for fup visit, she was seen for diabetes and osteoporosis management She is feeling well. She had the last Prolia shot on 06/19/2023. She is due for a shot today She has other PMH of ESRD s/p kidney transplant on 2011, on prednisone 5 mg daily, Sees Dr. Page of nephrology she had GERD, HTN, dyslipidemia. Osteoporosis. She has retinopathy s/p laser last time 1 year ago. Diabetic nephropathy, neuropathy. no Macrovascular disease. Last ophthalmology evaluation: 06/2022 - needs to make appt , she has retinopathy. She has nocturia 1 time only, denies polydipsia, polyuria, + numbness, tingling. denies blurred vision. 10/08/2019 DEXA scan AP SPINE L1-L4: Current: BMD 0.881 g/cm2, Z-score -0.7, T-score -2.5, osteoporosis, 17.2% increase from baseline (<5% change is not significant). Baseline: BMD 0.752 g/cm2. LEFT FEMUR, NECK: Current: BMD 0.650 g/cm2, Z-score -1.0, T-score -2.8, osteoporosis. Baseline: BMD 0.619 g/cm2. LEFT FEMUR, TOTAL: Current: BMD 0.676 g/cm2, Z-score -1.1, T-score -2.6, osteoporosis, 2.3% increase from baseline (<5% change is not significant). Baseline: BMD 0.661 g/cm2. Laboratory Tests 05/15/19 05/15/19 05/20/19 12:00 12:00 09:00 Sodium Potassium Creatinine Estimated GFR Hemoglobin A1c % Calcium AST ALT Alkaline Phosphatase N-Telopeptide X-linked 25-OH Vitamin D Total 54.7 Ur Random Microalbumin Ur 24 Hour Volume 2825 Ur Calcium 24 Hr 31 L Calcium/Creat 24 Hr 37 Bone Specific Alk Phos 6.0 08/13/19 05/28/20 05/28/20 11:20 10:45 10:48 Sodium 139 Potassium 4.7 Creatinine 1.22 Estimated GFR 44 Hemoglobin A1c % Calcium AST 24 ALT 25 Alkaline Phosphatase 50 N-Telopeptide X-linked 8 25-OH Vitamin D Total Ur Random Microalbumin 6.0 Ur 24 Hour Volume Ur Calcium 24 Hr Calcium/Creat 24 Hr Bone Specific Alk Phos 05/28/20 07/22/20 10:48 11:41 Sodium Potassium Creatinine Estimated GFR Hemoglobin A1c % 7.9 Calcium 10.2 AST ALT Alkaline Phosphatase N-Telopeptide X-linked 25-OH Vitamin D Total Ur Random Microalbumin Ur 24 Hour Volume Ur Calcium 24 Hr Calcium/Creat 24 Hr Bone Specific Alk Phos Laboratory Tests 05/15/19 05/20/19 08/13/19 12:00 09:00 11:20 Sodium Potassium Creatinine Estimated GFR Fasting Glucose Hgb A1c Fingerstick Hemoglobin A1c % Calcium AST ALT Albumin N-Telopeptide X-linked 25-OH Vitamin D Total 54.7 Ur Creatinine 24 Hour 0.84 Microalb/Creat Ratio 4.7 12/15/19 05/28/20 05/28/20 10:57 10:45 10:48 Sodium 139 Potassium 4.7 Creatinine 1.22 Estimated GFR 44 Fasting Glucose 184 H Hgb A1c Fingerstick 8.2 Hemoglobin A1c % Calcium 10.1 AST 24 ALT 25 Albumin 4.2 N-Telopeptide X-linked 8 25-OH Vitamin D Total Ur Creatinine 24 Hour Microalb/Creat Ratio 05/28/20 10:48 Sodium Potassium Creatinine Estimated GFR Fasting Glucose Hgb A1c Fingerstick Hemoglobin A1c % 7.9 Calcium AST ALT Albumin N-Telopeptide X-linked 25-OH Vitamin D Total Ur Creatinine 24 Hour Microalb/Creat Ratio on Prolia 60 mg q.6 months. . Tolerating Prolia well. No fx since last visit. To receive Prolia injection today. on calcium supplementation [id number] in AM 650 mg with lunch and 650 mg in dinner . 24 hour urine calcium was low with elevated PTH The patient is a 74-year-old female presenting with follow-up concerns regarding both osteoporosis and type 2 diabetes mellitus. She has experienced hypocalciuria and has been prescribed calcium supplementation using Viactive. The dosing has been variable, with possible inconsistencies in daily intake, leading to concerns about insufficient calcium for optimal bone health. Her osteoporosis management needs to be reassessed, considering the introduced regimen might not be entirely followed. Moreover, she has stopped using Jardiance for her diabetes following a lawnmower repair mechanic?s recommendation, which necessitated significant modifications to her diabetes management plan. She continues taking insulin yet struggles with stable glucose levels as evidenced by rising sugars and resulted in a urinary tract infection recently treated with antibiotics. The need for a harmonious approach to her diabetes controls, such as monitoring glucose fluctuations and adjusting insulin regimens, stands crucial in light of the recent developments. [facility] Medical History Vitamin D deficiency Hypertension Osteoporosis Diabetic retinopathy associated with type 2 diabetes mellitus Diabetic nephropathy associated with type 2 diabetes mellitus USP (current) use of insulin Dyslipidemia Diabetes type 2, uncontrolled Surgical History History of esophagogastroduodenoscopy (EGD) Hx of colonoscopy Hx of section Hx of tonsillectomy Hx of arteriovenostomy for renal dialysis History of renal transplant Family History Father No problems noted. Mother No problems noted. Sister Breast cancer Diabetes Maternal Aunt Cancer Maternal Uncle Cancer Social History Household Members: Spouse Alcohol intake: never Patient Tobacco Use Status: Never used Tobacco service: No Current occupational status: retired Gender identity: Female Physical Exam Vital Signs: Last Vital Signs Pulse 77 07/08/24 10:19 BP 132/50 L 07/08/24 10:19 Pulse Ox 98 07/08/24 10:19 Oxygen Delivery Method Room Air 07/08/24 10:19 BMI result Body Mass Index 22.8 Assessment & Plan Assessment & Plan (1) Osteoporosis: Code(s): M81.0 - Age-related osteoporosis without current pathological fracture Category: Medical Plan: Patient has severe osteoporosis as a very high risk for fracture. She has CKD-bone mineral disease. Secondary workup was negative. , 24 hour urine for calcium was low suggesting insufficient calcium intake and secondary hyperparathyroidism component The plan is continue the Prolia. Patient will follow-up with Nephrology for treatment of the CKD-bone mineral disease to be optimized. Patient will get a Prolia injection today. Will have patient start sugar free calcium citrate in the form of Viactiv 1300 mg in AM and lunch and 650 mg in PM . Will recheck 24 hour urine for calcium and creatinine as well as PTH, calcium, 25 hydroxy vitamin-D in 3 months and adjust calcium supplementation according Orders: Orders XR DEXA axial skeleton Today M81.0 - Age-related osteoporosis without current pathological fracture Creatinine, 24 Hr Group 3 Months M81.0 - Age-related osteoporosis without current pathological fracture Calcium, 24 Hr Ur 3 Months M81.0 - Age-related osteoporosis without current pathological fracture Calcium 3 Months M81.0 - Age-related osteoporosis without current pathological fracture Vitamin D 25-OH Total Today M81.0 - Age-related osteoporosis without current pathological fracture Parathyroid Hormone Intact Today M81.0 - Age-related osteoporosis without current pathological fracture Coding Level of Care Code Est Pt Level 3 (09198) Diagnoses Osteoporosis M81.0
[2024-07-08 10:19] VITALS: BP 132/50; PULSE 77; O2SAT 98; BMI 22.8
--- OUTSIDE RECORDS SUMMARY | 2024-07-08 12:12 | XMS_ITS | Clinical Summary ---
Author Organization [facility] Address [address] [place] [phone] Phone Care Team Providers Care Assistant Professor Of Criminal Justice Name Role Phone Ana María Bryan MD Primary Care Provider [phone] Allergies Active Allergy Reactions Criticality Noted Date [...] misc 1 Active Lancets (OneTouch Delica Plus [id number]) misc TEST BLOOD SUGAR 4 TIMES A [...] mg daily. Jardiance held at admission. -Monitor [id number] glucose with meals and nightly, and every [...] tolerated. FU in 3 months. 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 [address] [phone] Bruce Galarza MD [address] [phone] Health Maintenance Due Date Last Done Comments Breast Cancer Screening 1950 Diabetes: Ophthalmology Exam 04/26/2020 Diabetes: Pedal Pulse Checked 04/26/2020 Diabetes: Sensory Foot Exam 04/26/2020 Diabetes: Visual Foot Exam 04/26/2020 Colonoscopy (Post-Transplant Patient) 05/11/2020 Mammogram (Post-Transplant Patient) 05/11/2020 Pelvic Exam (Post-Transplant Patient) 05/11/2020 Diabetes: Hemoglobin A1C 07/01/2024 025, 04/02/2024, 08/15/2023, Additional history exists Influenza Vaccine (Season Ended) [...] Urine >30(A) 0 - 5 /hpf [facility] RBC, Urine None seen 0 - 2 /hpf [facility] Squamous Epithelial, Urine 0-10 0 - 10 /hpf [facility] Casts None seen None seen /lpf [facility] Bacteria, Urine Many(A) None seen/Few [facility] 06/10/2024 10:4 5 AM EDT 06/10/2024 us Bruce Galarza MD LAB MICROBIOLOGY - GENERAL OR DERABLES Final Result [facility] [address] [place] [phone] * Tacrolimus level (06/10/2024 10:45 AM EDT) Tacrolimus Lvl 7.3 5.0 - 20.0 ng/mL [facility] Comment: Target steady state trough concentration for [...] [facility] - 06/12/2024 7:05 PM EDT Test(s) [id number] (FK506), Blood was developed and its performance characteristics determined by [facility]. It has not been cleared or approved by the Food and Drug Administration. Bruce Galarza MD LAB BLOOD ORDERABLES Final Re sult [facility] [place] [address] * (ABNORMAL) Protein, Total, Random Urine w/Creatinine (Protein/Creat Ratio) (06/10/2024 10:45 AM EDT) Creatinine, Ur 73.9 Not Estab. mg/dL [facility] Protein, Ur 17.6 Not Estab. mg/dL [facility] Urine Protein/Creati nine Ratio 238(H) 0 - 200 mg/g creat [facility] [place] 06/10/2024 10:4 5 AM EDT 06/10/2024 Bruce Galarza MD LAB URINE ORDERABLES Final Re sult Performing Organization Address [facility] Co de Phone Number [facility] [address] [place] [phone] * (ABNORMAL) Urine Albumin / Creatinine Ratio (06/10/2024 10:45 AM EDT) Albumin, Urine 35.6 Not Estab. ug/mL [facility] Albumin/Creatin ine Ratio 48(H) 0 - 29 mg/g creat [facility] Comment: ? Normal: ?0 - ??29 ? Moderately increased: 30 - 300 ? Severely increased: ? >300 06/10/2024 10:4 5 AM EDT 06/10/2024 Bruce Galarza MD LAB URINE ORDERABLES Final Re sult Performing Organization Address [facility] de Phone Number [facility] [address] [place] [phone] * (ABNORMAL) Urinalysis with microscopic (06/10/2024 10:45 AM EDT) Specific [place], Urine 1.023 1.005 - 1.030 [facility] pH Urine 5.5 5.0 - 7.5 [facility] [phone] Color, Urine Yellow Yellow [facility] Appearance Urine Clear Clear [facility] [place] WBC Esterase Urine 2+(A) Negative [facility] Protein, Ur Trace Negative/Tr mindy [facility] Glucose, Ur 3+(A) Negative [facility] Ketones, Urine Negative Negative [facility] [place] Blood Urine Negative Negative [facility] Bilirubin Urine Negative Negative [facility] [place] Urobilinogen Urine 0.2 0.2 - 1.0 mg/dL [facility] Nitrite, Urine Positive(A) Negative [facility] [place] Microscopic Examination See below: [facility] [phone] Comment:Microscopic was rachell cated and was performed. 06/10/2024 10:4 5 AM EDT 06/10/2024 us Bruce Galarza MD LAB URINE ORDERABLES Final Re sult [facility] [address] [place] [phone] * (ABNORMAL) Renal Function Panel (06/10/2024 10:45 AM EDT) Glucose 95 70 - 99 mg/dL [facility] BUN 40(H) 8 - 27 mg/dL [facility] Creatinine 1.20(H) 0.57 - 1.00 mg/dL [facility] eGFR CKD-EPI CR 2020 47(L) >59 mL/min/1.7 3 [facility] BUN/Creatinine Ratio 33(H) 12 - 28 [facility] Sodium 142 134 - 144 mmol/L [facility] Potassium 4.4 3.5 - 5.2 mmol/L [facility] Chloride 102 96 - 106 mmol/L [facility] Bicarbonate (CO2) 24 20 - 29 mmol/L [facility] Calcium 10.3 8.7 - 10.3 mg/dL [facility] Albumin 4.3 3.8 - 4.8 g/dL [facility] Phosphorus 4.2 3.0 - 4.3 mg/dL [facility] 06/10/2024 10:4 5 AM EDT 06/10/2024 us Bruce Galarza MD LAB BLOOD ORDERABLES Final Re sult [facility] [place] [address] [place] [phone] * (ABNORMAL) Hemoglobin A1c (05/31/2022 10:19 AM EST) Hemoglobin A1C 6.8(H) (4.0-5.6) % [facility] Comment: MONITORING: In known diabetic patients, hemoglobin A1c targets should be discussed with health care provider. DIAGNOSTIC USE: ??The [place] Diabetes Association (ADA) and the World Health [...] Supplement 1 Testing performed or reported by [facility], a Service of [facility], [address] [place] [id number] Carlene Prasad MD, Putty And Patch Worker [facility]# [id number] Blood (Blood, Venous) 05/31/2022 10:19 AM EST 05/31/2022 10:20 AM EST us Olivia Trujillo MD LAB BLOOD ORDERABLES Final Resu lt KALIE from Last 3 Months or Most Recently Relevant to Health Maintenance [place] [address] FlexScore MCR/PAUL ([id number]) Joyce FlexScore MCR/PAUL (SX072) Care Teams Assistant Professor Of Criminal Justice Relationship Specialty Start Date End Date Ana María Bryan MD [address] [place] [address] [phone] PCP - General 04/05/20
--- OUTSIDE RECORDS SUMMARY | 2024-07-08 12:12 | XMS_ITS | Encounter Summary ---
Author Organization [facility] Address [address] [facility] [address] [place] [phone] Phone Care Team Providers Care Concrete Mason Name Role Phone Ana María Bryan MD Primary Care Provider Reason for Visit * Reason Onset Date Comments Med Refill 07/07/2024 Encounter Details Date Type Department Care Team (Late Contact Info) Description 07/07/2024 Refill [facility] [address] [facility] [address] [place] [phone] [place] [address] [place] [phone] Social History Tobacco Use Types Packs/Day Years [...] Department Care Team (Late Contact Info) Description 09/16/2024 2:30 PM EDT Office Visit [facility] [address] [facility] [address] [place] [phone] Bruce Galarza MD [address] [facility] [address] [place] [phone] documented as of this encounter Visit Diagnoses Not on filedocumented in this encounter Care Teams Concrete Mason Relationship Specialty Start Date End Date Ana María Bryan MD [address] [place] [phone] PCP - General 04/05/20 documented as of this encounter
--- OUTSIDE RECORDS SUMMARY | 2024-07-08 12:12 | XMS_ITS | Encounter Summary ---
Author Organization [employer] Address [address] [facility] 7t [place] [address] Care Team Providers Care Rubber Boots And Shoes Repairer Name Role Phone Ana María Bryan MD Primary Care Provider + Reason for Visit * Reason Comments Med Refill Encounter Details Date Type Department Care Team ([facility] st Contact Info) Description 10/29/2023 Refill [facility] [address] [place] [address] Ana María Bryan MD [address] [place] [address] Primary insomnia Social History Tobacco Use Types [...] Description 10/03/2024 11:30 AM EDT Office Visit [facility] [address] [place] [address] Ana María Bryan MD [address] [place] [address] documented as of this encounter Visit Diagnoses Diagnosis Primary insomnia Persistent disorder of initiating or maintaining sleep documented in this encounter Additional Health Concerns Assessment Noted Time PHQ-9 Depression Total Score: 1 04/13/19 23 10:26 AM EST documented as of this encounter Care Teams Rubber Boots And Shoes Repairer Relationship Specialty Start Date End Date Ana María Bryan MD [address] [place] [phone] PCP - General Family Medicine 03/26/18 documented as of this encounter
--- OUTSIDE RECORDS SUMMARY | 2024-07-08 12:12 | XMS_ITS | Encounter Summary ---
Author Organization [employer] Address [address] [facility] 7t [place] [address] Care Team Providers Care Garage Construction Equipment Mechanic Name Role Phone Ana María Bryan MD Primary Care Provider + Reason for Visit * Reason Comments Med Refill Encounter Details Date Type Department Care Team ([facility] st Contact Info) Description 11/18/2023 Refill [facility] [address] [place] [address] Ana María Bryan MD [address] [place], [place] [phone] Acute deep vein thrombosis (DVT) of proximal [...] is your housing situation today? I have [place] rock 08/06/[address] you [...] Description 10/03/2024 11:30 AM EDT Office Visit [facility] [address] [place] [address] Ana María Bryan MD [address] [place] [address] documented as of this encounter Visit Diagnoses Diagnosis Acute deep vein thrombosis (DVT) of proximal vein of right lower extremity (CMS/HCC) documented in this encounter Additional Health Concerns Assessment Noted Time PHQ-9 Depression Total Score: 1 04/13/19 23 10:26 AM EST documented as of this encounter Care Teams Garage Construction Equipment Mechanic Relationship Specialty Start Date End Date Ana María Bryan MD [address] [place] [address] PCP - General Family Medicine 03/26/18 documented as of this encounter
--- OUTSIDE RECORDS SUMMARY | 2024-07-08 12:13 | XMS_ITS | Encounter Summary ---
Author Organization [email or web address] Address [address] [facility] 7t [place] [address] Care Team Providers Care Dope Firer Name Role Phone Ana María Bryan MD Primary Care Provider + Encounter Details Date Type Department Care Team (Late st Contact Info) Description 07/04/2024 Abstract [facility] [address] [place] [address] Ana María Bryan MD [address] [place] [address] Social History Tobacco Use Types Packs/Day Years [...] Description 10/03/2024 11:30 AM EDT Office Visit [facility] [address] [place] [phone] Ana María Bryan MD [address] [place] [address] documented as of this encounter Procedures Procedure [...] documented as of this encounter Care Teams Dope Firer Relationship Specialty Start Date End Date Ana María Bryan MD [address] [place] [phone] PCP - General Family Medicine 03/26/18 documented as of this encounter
--- OUTSIDE RECORDS SUMMARY | 2024-07-08 12:13 | XMS_ITS | Encounter Summary ---
Author Organization [employer] Address [address] [facility] 7t [place] [address] Care Team Providers Care Manager Software Name Role Phone Ana María Bryan MD Primary Care Provider + Encounter Details Date Type Department Care Team (Late st Contact Info) Description 05/11/2022 Orders Only [facility] [address] [place] [address] Vandana Ledesma DO [address] [place], [place] [phone] Social History Tobacco Use Types Packs/Day Years [...] Description 10/03/2024 11:30 AM EDT Office Visit [facility] [address] [place] [address] Ana María Bryan MD [address] [place] [address] documented as of this encounter Visit Diagnoses Not on filedocumented in this encounter Additional Health Concerns Assessment Noted Time PHQ-9 Depression Total Score: 1 04/13/19 23 10:26 AM EST documented as of this encounter Care Teams Manager Software Relationship Specialty Start Date End Date Ana María Bryan MD [address] [place] [address] PCP - General Family Medicine 03/26/18 documented as of this encounter
--- OUTSIDE RECORDS SUMMARY | 2024-07-08 12:13 | XMS_ITS | Clinical Summary ---
Author Organization [employer] Address [address] [facility] [address] [place] [address] Care Team Providers Care Ice Resurfacing Machine Operators Name Role Phone Ana María Bryan MD [...] MEALS DIRECTED Active Lancets (OneTouch Delica Plus [id number]) [facility] [place] TEST BLOOD SUGAR 4 TIMES A DAY [...] Active polyethylene glycol, PEG, 3350 (MiraLax Mix-In [place]) 17 g packetIndications: Slow transit constipation Take 1 packet by mouth every day mixed with 8 oz water, juice, soda, coffee, or tea. 30 packet 023 Active glucose (Glutose) 40 % gel oral gelIndications:Typ e 2 diabetes mellitus with stage 3 chronic kidney disease, with long-term current use of insulin, unspecified whether stage 3a or 3b CKD (CMS/[facility]) TAKE 1/2 TUBE BY MOUTH NEEDED HYPOGLYCEMIA DIRECTED 30 g 5 023 Active lisinopril 2.5 MG tablet TAKE 1 TABLET BY MOUTH EVERY MORNING 90 tablet 1 023 Active OneTouch Ultra Test test stripIndications:T ype 2 diabetes mellitus with stage 3 chronic kidney disease, with long-term current use of insulin, unspecified whether stage 3a or 3b CKD (CMS/[facility]) TEST BLOOD SUGAR FOUR TIMES DAILY 100 strip 11 024 Active Molnupiravir 200 MG capsule Take 800 mg by mouth 2 times daily. Take 4 tabs (800 mg) po bid for 5 days. Khmer label 40 capsule 024 Active docusate sodium [...] tablet 1 024 Active Pentips Generic Pen [place] 32G X 4 MM misc USE FOUR [...] vs gastroparesis. r/o PUD. Refer to GI, [facility] does not accept patient's insurance. [place] [facility] Counseled to drink herbal tea prior [...] colonic polyp 03/24/2022 Overview (08/15/2023): Colonoscopy at [facility] on 03/15/22 (admitted due to [...] at least until august and FU with hand shaper. We discussed avoid prolonged rest, ambulation with [...] mg daily. Jardiance held at admission. -Monitor [id number] glucose with meals and nightly, and every 6 hours when n.p.o. -Insulin sliding scale with meals and nightly -Lantus given just 5 units at bedtime -Uptitrate insulin after diet is advanced Assessment & Plan (07/04/2024 3:48 PM EDT): Uncontrolled, likely needs Humalog adjusted for carb load. Continue Lantus 12 units and follow-up with industrial accountant, she is off Jardiance due to side effects. Discussed importance of having small and fractioned meals I will follow-up in 3 to 4 months Referral to [facility] to [facility] ([facility]) She has been referred to child care center administrator for toenail trimming Assessment & Plan (08/15/2023 11:55 AM EDT): Controlled. A1c is at goal. Continue on Lantus 10 units she will lower to 8 units only if she has persistent blood sugar below 70. Counseled re more frequent low calorie/carb meals. Check fgstk 3x daily Encouraged physical activity as tolerated. FU in 3 months. F/u with industrial accountant Assessment & Plan (10/23/2022 5:09 PM EDT): [...] at goal. -She has follow up with Behavioral Therapist next month. -Continue humalog sliding scale + [...] status post renal transplant - fu with material mover - continue on Prograf + Mycophenolate Assessment [...] low dose lisinopril and fu with me boots and shoes supervisor in 3 weeks Check potassium next [...] she states she has never had an ID/stents or stroke and has never had any [...] Department Care Team Description 07/06/2024 Orders Only [facility] External Provider, [facility] 07/04/2024 11:30 AM EDT Office Visit [facility] [address] [place] [phone] Ana María Bryan MD Type 2 diabetes mellitus with stage 3 chronic kidney disease, with long-term current use of insulin, unspecified whether stage 3a or 3b CKD ([facility]); Flu-like symptoms; Seasonal allergic rhinitis due to other allergic trigger 07/04/2024 Abstract [facility] [address] [place] [address] Ana María Bryan MD 07/04/[address] [address] Ana María Bryan MD Results 07/04/2024 Travel 07/02/[address] [address] Ana María Bryan MD Chart prep 07/02/2024 Orders Only GENERIC EXTERNAL DATA DEPARTMENT Provider, Generic External Data 06/30/2024 Orders Only GENERIC EXTERNAL DATA DEPARTMENT Provider, Generic External Data 06/25/2024 Patient Outreach [facility] [address] [place] [address] Awilda Ijeoma Pre-visit Planning 06/22/2024 Refill [facility] [address] [place] [address] Ana María Bryan MD Upper gastrointestinal bleeding 05/02/2024 Orders Only GENERIC EXTERNAL DATA DEPARTMENT Provider, Generic External Data 04/23/2024 Refill [facility] [address] [place] [address] Ana María Bryan MD Primary insomnia from [...] Description 10/03/2024 11:30 AM EDT Office Visit [facility] [address] [place] [address] Ana María Bryan MD [address] [place] [address] Health Maintenance Due Date Last Done Comments [...] Procedure Name Priority Date/Time Associated Diagnosis Comments CT CHEST WO CONTRAST Routine 07/06/2024 10:24 PM EDT CULTURE, URINE, ROUTINE Routine 07/06/2024 10:00 PM EDT URINALYSIS, COMPLETE, WITH REFLEX TO CULTURE Routine 07/06/2024 9:13 PM EDT XR RIBS BILATERAL 4+ VW W PA [...] unspecified whether stage 3a or 3b CKD ([facility]) VITAMIN D,25-OH,TOTAL,IA Routine 07/02/2024 9:45 AM EDT [...] Recently Relevant to Health Maintenance Results * CT Chest w/o Contrast (07/06/2024 10:24 PM EDT) Anatomical Region Laterality Modality Body, Chest Computed Tomogra phy 07/06/2024 10:2 4 PM EDT Narrative 07/06/2024 10:27 PM EDT ? [facility] ?[address] ?[place] [address] ? CT Scan Report ? Signed ? Patient: Sofiya Julian ?MR#: [id number] ?? [id number] ? : 1950 ?Acct:[id number] ? Age/Sex: 74 / F ?ADM Date: 07/06/24 ? Loc: HO.ED ? Attending Dr: ? Ordering Physician: Kunal Gan MD ?? Date of Service: 07/06/24 ?? Procedure(s): CT chest wo IV con ?? Accession Number(s): [id number] ? cc: Ana María Bryan MD; Kunal Gan MD ? Report Number: ?? [id number]: Total DLP = ??162.00 mGy-cm ? CLINICAL HISTORY: r lower rib pain ? CT chest without contrast ? Comparison: CR - XR RIBS BI MIN 4V W CXR1V - 07/06/24 20:20 EDT ? Findings: ?? The heart is normal size. ?? Moderate atherosclerotic disease of the aortic arch, origins of the great ?? vessels, and thoracic aorta. Severe atherosclerotic calcification of the ?? coronary arteries. ?? The visualized thyroid and mediastinum are unremarkable. ? Moderate-sized hiatal hernia. Lobulated partially calcified lesion within ?? the left upper lobe measuring 1.9 cm adjacent to a lung cyst. ? The visualized upper abdomen is unremarkable. ?? 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 No evidence of acute fractures. ? IMPRESSION: ?? 1. 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 No evidence of acute fractures. ?? 2. Left upper lobe 1.9 cm partially calcified lobulated lesion adjacent to ?? a lung cyst may represent a hematoma or granulomatosis. ?? 3. Moderate sized hiatal hernia. ?? 4. Moderate atherosclerotic disease of the aortic arch, origins of the ?? great vessels and thoracic aorta and severe atherosclerotic calcification ?? of the coronary arteries. ? This document has been electronically signed by: Jalil Rivers MD on ?? 07/06/2024 22:24:59 ? Dictated By: ?Jalil Rivers MD ? Signed By: ?<Electronically signed by Jalil Rivers MD in OV> ?07/06/246 ? DD/ 23 ? TD/TT: 07/06/242223 ? [employer] Sales Representative: ? Procedure Note Suad Newsome - 07/06/[address] [place] [address] [address] Scan Report Signed Patient: Sofiya Jluian [facility]#: [id number] : 1950Acct:[id number] Age/Sex: 74 / FADM Date: 07/06/24 Loc: HO.ED Attending Dr: Ordering Physician: Kunal Gan MD Date of Service: 07/06/24 Procedure(s): CT chest wo IV con Accession Number(s): [id number] cc: Ana María Bryan MD; Kunal Gan MD Report Number: [id number]: Total DLP = 162.00 mGy-cm CLINICAL HISTORY: r lower rib pain CT chest without contrast Comparison: CR - XR RIBS BI MIN 4V W CXR1V - 07/06/24 20:20 EDT Findings: The heart is normal size. Moderate atherosclerotic disease of the aortic arch, origins of the great vessels, and thoracic aorta. Severe atherosclerotic calcification of the coronary arteries. The visualized thyroid and mediastinum are unremarkable. Moderate-sized hiatal hernia. Lobulated partially calcified lesion within the left upper lobe measuring 1.9 cm adjacent to a lung cyst. The visualized upper abdomen is unremarkable. 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 No evidence of acute fractures. IMPRESSION: 1. 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 No evidence of acute fractures. 2. Left upper lobe 1.9 cm partially calcified lobulated lesion adjacent to a lung cyst may represent a hematoma or granulomatosis. 3. Moderate sized hiatal hernia. 4. Moderate atherosclerotic disease of the aortic arch, origins of the great vessels and thoracic aorta and severe atherosclerotic calcification of the coronary arteries. This document has been electronically signed by: Jalil Rivers MD on 07/06/2024 22:24:59 Dictated By: Jalil Rivers MD Signed By: <Electronically signed by Jalil Rivers MD in OV> 07/06/242225 DD/ 23 TD/TT: 07/06/242223 [employer] Sales Representative: [facility] External Provider IMG CT PROCEDURES Edited Result - Final * (ABNORMAL) Urinalysis, Complete, with Reflex to Culture (07/06/2024 9:13 PM EDT) Color Urine Yellow [facility] Appearance Urine Turbid [facility] PH 5.5 5.0 - 9.0 [facility] Glucose Urine UA >=1000(A) Negative mg/dL [facility] Urine Blood Small (1+)(A) Negative [facility] Specific [place] - Urine 1.010 1.005 - 1.025 [facility] Urine Protein Trace Neg-Trace mg/dL [facility] Urine Ketones Negative Negative mg/dL [facility] Nitrite Urine Negative Negative [facility] Leukocyte Esterase Urine Large (3+)(A) Negative [facility] RBC Urine 3-5(A) 0 - 2 /HPF [facility] Urine WBC >50(A) 0 - 5 /HPF [facility] WBC CLUMPS, UR Present [facility] Urine Squamous Epithelial Cell 3-5 0 - 2 /HPF [facility] Urine Bacteria 3+ None Seen [facility] Hyaline Casts, Urine 0-2 0 - 2 /LPF [facility] 07/06/2024 9:13 PM EDT 07/06/2024 9:26 PM EDT Narrative [facility] - 07/06/2024 9:59 PM EDT Urine, Clean Catch us Generic External Data Provider LAB URINE ORDERAB LES Final Result [facility] [address] [place] [phone] * XR RIBS BILATERAL 4+ VW W PA CHEST (07/06/2024 8:41 PM EDT) Anatomical Region Laterality Modality Rib, Abdomen Bilateral Radiographic [place] ging 07/06/2024 8:41 PM EDT Narrative 07/06/2024 8:43 PM EDT ? [facility] ?[address] ?[place] [address] ?XRay Report ? Signed ? Patient: Sofiya Julian ?MR#: [id number] ?? [id number] ? : 1950 ?Acct:[id number] ? Age/Sex: 74 / F ?ADM Date: 04/13/25 ? Loc: HO.ED ? Attending Dr: ? Ordering Physician: Trini Connelly NP ?? Date of Service: 07/06/24 ?? Procedure(s): XR ribs BI min 4V w CXR1V ?? Accession Number(s): [id number] ? cc: Ana María Bryan MD; Trini [...] ? DD/ 40 ? TD/TT: 07/06/242040 ? [employer] Sales Representative: ? Procedure Note Suad Newsome - 07/06/[address] [address] XRay Report Signed Patient: Sofiya Julian [facility]#: [id number] : 1950Acct:[id number] Age/Sex: 74 / FADM Date: 07/06/24 Loc: HO.ED Attending Dr: Ordering Physician: Trini Connelly NP Date of Service: 07/06/24 Procedure(s): XR ribs BI min 4V w CXR1V Accession Number(s): [id number] cc: Ana María Bryan MD; Trini Connelly [...] MD in OV> 07/06/242041 DD/ 40 TD/TT: 04/13/25 2041 [employer] Sales Representative: Result [facility] External Provider IMG XR PROCEDURES Edited Result - Final * POCT Rapid Covid-19 BinaxNOW (07/04/2024 11:35 AM EDT) [facility] Rapid COVID Ag Negative QC Media Lot # [id number] Lot# Expiration Date 63,026 Swab 07/04/2024 11:3 5 AM EDT Result [facility] Ana María Bryan MD POINT OF CARE TEST ENTER /EDIT ORDERABLES Final Result * POCT Rapid Influenza B OSOM (07/04/2024 11:35 AM EDT) [facility] Rapid Influenza B Ag Negative Negative, Indeterminate QC Media Lot # [id number] Lot# Expiration Date 53,125 Swab 07/04/2024 11:3 5 AM EDT Result [facility] Ana María Bryan MD POINT OF CARE TEST ENTER /EDIT ORDERABLES Final Result * POCT Rapid Influenza A OSOM (07/04/2024 11:35 AM EDT) [facility] Rapid Influenza A Ag Negative Negative, Indeterminate QC Media Lot # [id number] Lot# Expiration Date 53,125 Swab Nasopharyngeal structure / Unknown 07/04/2024 11:35 AM EDT Result [facility] Ana María Bryan MD POINT OF CARE TEST ENTER /EDIT ORDERABLES Final Result * POCT Glucose (07/04/2024 11:13 AM EDT) [facility] Glucose Blood, POC 96 60 - 200 mg/dL QC Media Lot # [id number] Lot# Expiration Date Blood Capillary blood specimen / Unknown 07/04/2024 11:13 AM EDT Result [facility] Ana María Bryan MD POINT OF CARE TEST ENTER /EDIT ORDERABLES Final Result * Vitamin D, 25-Hydroxy, Total, Immunoassay (07/02/2024 9:45 AM EDT) Vitamin D 25-OH Total 44.8 >30 ng/mL [facility] Comment: Health Based Reference Values*< 20 ??ng/mL ??[id number] ng/mL ??Insufficient> 30 ??ng/mL ??Sufficient*Carlos Manuel BERRY. [...] Provider LAB BLOOD ORDERAB LES Final Result [facility] [address] [place] [phone] * (ABNORMAL) PTH, Intact Without Calcium (07/02/2024 9:45 AM EDT) Parathyroid Hormone, Intact 176.6(H) 8.7 - 77.1 pg/mL [facility] 07/02/2024 9:45 AM EDT 07/02/2024 9:45 AM EDT us Generic External Data Provider LAB BLOOD ORDERAB LES Final Result Performing Organization Address [facility] Co de Phone Number [facility] [address] [place] [phone] * (ABNORMAL) Hemoglobin A1c (07/02/2024 9:45 AM EDT) Hemoglobin A1c 7.8(H) <6.0 % [facility] Comment:Hemoglobin A1C Refer ence Range Adults: 4.8 - 6.0 % Non diabetic: < 6.0 % Goal: < 7.0 %Additional Action Suggested: > 8.0 %Note: Hemoglobin A1c results are invalid for patients with abnormal amounts of HbF. Blood transfusions may impact the HbA1c concentration in the patient sample. Estimated Average Glucose 177 mg/dL [facility] Comment:eAG = Estimated ave rage glucose which is %A1C expressed asaverage glucose, using the formula of the R8H-CorgzbdNqrjbxz Glucose study (ADAG), Diabetes Care, Vol.31,#8,Oct. 2007 07/02/2024 9:45 AM EDT 07/02/2024 9:45 AM EDT us Generic External Data Provider LAB BLOOD ORDERAB LES Final Result Performing Organization Address [facility] de Phone Number [facility] [address] [place] [phone] * Albumin (07/02/2024 9:45 AM EDT) Albumin Level 4.0 3.5 - 5.0 g/dL [facility] 07/02/2024 9:45 AM EDT 07/02/2024 9:45 AM EDT us Generic External Data Provider LAB BLOOD ORDERAB LES Final Result Performing Organization Address [facility] Co de Phone Number [facility] [address] [place] [phone] * (ABNORMAL) Basic Metabolic Panel (07/02/2024 9:45 AM EDT) Sodium 140 135 - 145 mmol/L [facility] Potassium 4.1 3.3 - 5.1 mmol/L [facility] Chloride 106 96 - 108 mmol/L [facility] Carbon Dioxide 24 22 - 29 mmol/L [facility] Anion Gap 14 12 - 20 [facility] Urea Nitrogen (BUN) 33(H) 9 - 16 mg/dL [facility] Creatinine, Serum 0.99 0.5 - 1.4 mg/dL [facility] Estimated Glomerular Filt Rate 55 [facility] Comment:Chronic Kidney Disea se: Estimated GFR < 60 mL/min/1.59d0Xnpnuy Kidney Disease: Estimated GFR < 15 mL/min/1.73m2 Glucose 77 60 - 115 mg/dL [facility] Calcium 9.7 8.4 - 10.2 mg/dL [facility] 07/02/2024 9:45 AM EDT 07/02/2024 9:45 AM EDT us Generic External Data Provider LAB BLOOD ORDERAB LES Final Result Performing Organization Address City/[facility]/ZIP Co de Phone Number [facility] [address] [place] [phone] * Glucose, Whole Blood (06/30/2024 1:37 PM EDT) Only the most recent of2 resultswithin the time period is included. Glucose, Whole Blood 97 60 - 115 mg/dL [facility] Comment:METER #: [id number] Testing performed in the Endocrinology Department [facility], [address] [place] [address] , [address], [facility]. 06/30/2024 1:37 PM EDT 06/30/2024 1:40 PM EDT us Generic External Data Provider LAB BLOOD ORDERAB LES Final Result Performing Organization Address City/[facility]/ZIP Co de Phone Number [facility] [address] [place] [phone] [phone] * Lipid Panel with Reflex to Direct LDL (01/01/2024 10:37 AM EDT) Triglycerides 97 <150 mg/dL [facility] Comment:Desirable Triglyceri de: less than 150 mg/dLBorderline High Triglyceride 150-199 mg/dLHigh Triglyceride: 200-499 mg/dLVery High Triglyceride: greater than or equal to 5OO mg/dL Cholesterol 138 <200 mg/dL [facility] Comment:Desirable Cholestero l: less than 200 mg/dLBorderline High Cholesterol: 200-239 mg/dLHigh Cholesterol: greater than 239 mg/dL LDL Cholesterol Calculated 61 <100 mg/dL [facility] Comment:Desirable LDL: less than 100 mg/dLNear Optimal/Above Optimal LDL: 110- 129 mg/dLBorderline High LDL: 130-159 mg/dLHigh LDL: 160-189 mg/dLVery High LDL: greater than or equal to 190 mg/dL HDL Cholesterol 58 >40 mg/dL [facility] Comment:Desirable HDL: great er than 40 mg/dL Note: This HDL assay may give artificially low results in patients with liver disease. Blood 01/01/2024 10:3 7 AM EDT 01/01/2024 11:26 AM EDT us Ana María Bryan MD LAB BLOOD ORDERABLES Fin al Result [facility] [address] [place] [phone] * Hm Colonoscopy (03/15/2022) Colonoscopy Normal Normal us Ana María Bryan MD HEALTH MAINTENANCE Final Result from Last 3 Months or Most Recently Relevant to Health Maintenance [facility] [employer] Care Teams Ice Resurfacing Machine Operators Relationship Specialty Start Date End Date Ana María Bryan MD [address] [place] [phone] PCP - General Family Medicine 03/26/18
--- OUTSIDE RECORDS SUMMARY | 2024-07-08 12:13 | XMS_ITS | Encounter Summary ---
Author Organization [employer] Address [address] [facility] 7t [place] [address] Care Team Providers Care Portrait Consultant Name Role Phone Ana María Bryan MD Primary Care Provider + Encounter Details Date Type Department Care Team (Late st Contact Info) Description 07/06/2024 Orders Only [facility] External Provider, [facility] Social History Tobacco Use Types Packs/Day [...] 11:30 AM EDT Office Visit [facility] [address] [place], [place] [phone] Ana María Bryan MD [address] [place], [place] [phone] Pending Results Name Type Priority Associated Diagnoses Date /Time Culture, Urine, Routine Microbiology Routine 07/06/2024 10:00 PM EDT documented as of this encounter Procedures Procedure Name Priority Date/Time Associated Diagnosis Comments CT CHEST WO CONTRAST Routine 07/06/2024 10:24 PM EDT CULTURE, URINE, ROUTINE Routine 07/06/2024 10:00 PM EDT URINALYSIS, COMPLETE, WITH REFLEX TO CULTURE Routine 07/06/2024 9:13 PM EDT XR RIBS BILATERAL 4+ VW W PA CHEST Routine 07/06/2024 8:41 PM EDT documented in this encounter Results * CT Chest w/o Contrast (07/06/2024 10:24 PM EDT) Anatomical Region Laterality Modality Body, Chest Computed Tomogra phy 07/06/2024 10:2 4 PM EDT Narrative 07/06/2024 10:27 PM EDT ? [facility] ?[address] ?[place] [address] ? CT Scan Report ? Signed ? Patient: Jose Gallegos,Sofiya N ?MR#: [id number] ?? [id number] ? : 1950 ?Acct:[id number] ? Age/Sex: 74 / F ?ADM Date: 07/06/24 ? Loc: HO.ED ? Attending Dr: ? Ordering Physician: Kunal Gan MD ?? Date of Service: 07/06/24 ?? Procedure(s): CT chest wo IV con ?? Accession Number(s): [id number] ? cc: Ana María Bryan MD; Kunal Gan MD ? Report Number: ?? [id number]: Total DLP = ??162.00 mGy-cm ? CLINICAL [...] MD ? Signed By: ?<Electronically signed by aJlil Rivers MD in OV> ?07/06/242225 ? DD/ 23 ? TD/TT: 07/06/242223 ? Assistant Clinical Director: ? Procedure Note Donotuseinterpreter, Image - 07/06/[address] [address] [address] Scan Report Signed Patient: Sofiya Julian [facility]#: [id number] : 1950Acct:[id number] Age/Sex: 74 / FADM Date: 07/06/24 Loc: HO.ED Attending Dr: Ordering Physician: Kunal Gan MD Date of Service: 07/06/24 Procedure(s): CT chest wo IV con Accession Number(s): [id number] cc: Ana María Bryan MD; Kunal Gan MD Report Number: [id number]: Total DLP = 162.00 mGy-cm CLINICAL HISTORY: [...] in OV> 07/06/242225 DD/ 23 TD/TT: 07/06/242223 Assistant Clinical Director: us [facility] External Provider IMG CT PROCEDURES Edited Result - Final * (ABNORMAL) Urinalysis, Complete, with Reflex to Culture (07/06/2024 9:13 PM EDT) Color Urine Yellow [facility] Appearance Urine Turbid [facility] PH 5.5 5.0 - 9.0 [facility] Glucose Urine UA >=1000(A) Negative mg/dL [facility] Urine Blood Small (1+)(A) Negative [facility] Specific Hayes - Urine 1.010 1.005 - 1.025 [facility] Urine Protein Trace Neg-Trace mg/dL [facility] Urine Ketones Negative Negative mg/dL [facility] Nitrite Urine Negative Negative [facility] Leukocyte Esterase Urine Large (3+)(A) Negative [facility] RBC Urine 3-5(A) 0 - 2 /HPF [facility] Urine WBC >50(A) 0 - 5 /HPF [facility] WBC CLUMPS, UR Present [facility] Urine Squamous Epithelial Cell 3-5 0 - 2 /HPF [facility] Urine Bacteria 3+ None Seen [facility] Hyaline Casts, Urine 0-2 0 - 2 /LPF [facility] 07/06/2024 9:13 PM EDT 07/06/2024 9:26 PM EDT Narrative [facility] - 07/06/2024 9:59 PM EDT Urine, Clean Catch Generic External Data Provider LAB URINE ORDERAB LES Final Result [facility] [address] [place], [place] [phone] * XR RIBS BILATERAL 4+ VW W PA CHEST (07/06/2024 8:41 PM EDT) Anatomical Region Laterality Modality Rib, Abdomen Bilateral Radiographic Madison ging 07/06/2024 8:41 PM EDT Narrative 07/06/2024 8:43 PM EDT ? [facility] ?[address] ?[place] [address] ?XRay Report ? Signed ? Patient: Jose Gallegos,Sofiya N ?MR#: [id number] ?? [id number] ? : 1950 ?Acct:[id number] ? Age/Sex: 74 / F ?ADM Date: 07/06/24 ? Loc: HO.ED ? Attending Dr: ? Ordering Physician: Trini Connelly NP ?? Date of Service: 07/06/24 ?? Procedure(s): XR ribs BI min 4V w CXR1V ?? Accession Number(s): [id number] ? cc: Ana María Bryan MD; Trini [...] ? DD/ 40 ? TD/TT: 07/06/242040 ? Assistant Clinical Director: ? Procedure Note Mercedez, Image - 07/06/[address] [address] XRay Report Signed Patient: Sofiya Julian [facility]#: [id number] : 1950Acct:[id number] Age/Sex: 74 / FADM Date: 07/06/24 Loc: HO.ED Attending Dr: Ordering Physician: Trini Connelly NP Date of Service: 07/06/24 Procedure(s): XR ribs BI min 4V w CXR1V Accession Number(s): [id number] cc: Ana María Bryan MD; Trini Connelly [...] in OV> 07/06/242041 DD/ 40 TD/TT: 07/06/242040 Assistant Clinical Director: [facility] External Provider IMG XR PROCEDURES Edited Result - Final documented in this encounter Visit Diagnoses Not on filedocumented in this encounter Additional Health Concerns Assessment Noted Time PHQ-9 Depression Total Score: 1 04/13/19 23 10:26 AM EST documented as of this encounter Care Teams Portrait Consultant Relationship Specialty Start Date End Date Ana María Bryan MD [address] [place] [address] PCP - General Family Medicine 03/26/18 documented as of this encounter
--- OUTSIDE RECORDS SUMMARY | 2024-07-08 12:13 | XMS_ITS | Clinical Summary ---
Author Organization [address] [facility] Address [address] [place] [address] Phone Care Team Providers Care Freelance Director Name Role Phone Ana María Bryan MD Primary Care Provider [phone] Encounters Date Type Department Care Team Description 05/20/2024 10:30 AM EST Office Visit Orthopedic [facility] [place] [address] [phone] Chris Urrutia DPM Controlled type 2 diabetes [...] 07/22/2024 10:15 AM EDT Office Visit Orthopedic [place] [address] [phone] Chris Urrutia DPM [address] [address] Health Maintenance Due Date Last Done Comments [...] from Last 3 Months Insurance [address] [place] [address] [employer] [facility] Care Teams Freelance Director Relationship Specialty Start Date End Date Ana María Bryan MD [address] [place] [phone] PCP - General Internal Medicine 02/06/24
--- OUTSIDE RECORDS SUMMARY | 2024-07-08 12:13 | XMS_ITS | Encounter Summary ---
Author Organization [employer] Address 75 [facility] 7t [place] [address] Care Team Providers Care Retail Field Supervisor Name Role Phone Ana María Bryan MD Primary Care Provider + Reason for Visit * Reason Onset Date Comments Results 07/04/2024 Encounter Details Date Type Department Care Team ([facility] st Contact Info) Description 07/04/2024 Telephone [facility] [address] [place] [address] Ana María Bryan MD [address] [place] [address] Results Social History Tobacco Use Types Packs/Day [...] EDT ----- Please update 03/15/2022 colonoscopy at [facility] next 1 due on 02/2027 documented in this encounter Plan of Treatment Upcoming Encounters Date Type Department Care Team (Late st Contact Info) Description 10/03/2024 11:30 AM EDT Office Visit [facility] [address] [place] [address] Ana María Bryan MD [address] [place] [address] documented as of this encounter Visit Diagnoses Not on filedocumented in this encounter Additional Health Concerns Assessment Noted Time PHQ-9 Depression Total Score: 1 04/13/19 23 10:26 AM EST documented as of this encounter Care Teams Retail Field Supervisor Relationship Specialty Start Date End Date Ana María Bryan MD [address] [place] [address] PCP - General Family Medicine 03/26/18 documented as of this encounter
--- OUTSIDE RECORDS SUMMARY | 2024-07-08 12:13 | XMS_ITS | Encounter Summary ---
Author Organization [employer] Address [address] [facility] 7t [place] [address] Care Team Providers Care Lokie Engineer Name Role Phone Ana María Bryan MD Primary Care Provider + Encounter Details Date Type Department Care Team (Latest Contact Info) Description 05/25/2021 Abstract [facility] CONVERSIONS Dental, Provider, DDS Social History [...] Description 10/03/2024 11:30 AM EDT Office Visit [facility] [address] [place] [address] Ana María Bryan MD [address] [place] [address] documented as of this encounter Visit Diagnoses Not on filedocumented in this encounter Care Teams Lokie Engineer Relationship Specialty Start Date End Date Ana María Bryan MD [address] [place] [address] PCP - General Family Medicine 03/26/18 documented as of this encounter
--- OUTSIDE RECORDS SUMMARY | 2024-07-08 12:13 | XMS_ITS | Encounter Summary ---
Author Organization [employer] Address [address] [facility] 7t [place] [address] Care Team Providers Care Account Management Specialist Name Role Phone Ana María Bryan [...] your housing situation today? I have doimnick wilkerson 08/06/[address] you [...] 10/03/2024 11:30 AM EDT Office Visit [facility] [address] [place] [address] Ana María Bryan MD [address] [place] [address] documented as of this encounter Visit Diagnoses Not on filedocumented in this encounter Additional Health Concerns Assessment Noted Time PHQ-9 Depression Total Score: 1 04/13/19 23 10:26 AM EST documented as of this encounter Care Teams Account Management Specialist Relationship Specialty Start Date End Date Ana María Bryan MD [address] [place] [address] PCP - General Family Medicine 03/26/18 documented as of this encounter
--- OUTSIDE RECORDS SUMMARY | 2024-07-08 12:13 | XMS_ITS | Encounter Summary ---
Author Organization [employer] Address [address] [facility] 7t [place] [address] Care Team Providers Care Banana Room Cutter Name Role Phone Ana María Bryan MD Primary Care Provider + Reason for Referral * Consultation (Routine) - Authorized Specialty Diagnoses / Procedures Referred By Caro teran Referred To Contact Ophthalmology Diagnoses Type 2 diabetes mellitus with stage 3 chronic kidney disease, with long-term current use of insulin, unspecified whether stage 3a or 3b CKD ([facility]) Ana María Bryan MD [address] [place] [address] Phone: tel: fax: [facility] - [address] [place] [address] Phone: tel: fax: Referral ID Status Reason Start Date Expiration Date Visits Requested Visits Authorized [id number] Authorized Specialty Services Required 07/04/2024 07/04/2025 1 1 Encounter Details Date Type Department Care Team ([facility] st Contact Info) Description 07/04/2024 11:30 AM EDT Office Visit [facility] [address] [place] [address] Ana María Bryan MD [address] [place] [address] Type 2 diabetes mellitus with stage 3 [...] Negative Final QC Media Lot # 07/04/2024 [id number] Final Lot# Expiration Date 07/04/2024 63,026 Final Problem List Items Addressed This Visit Diabetes mellitus (CMS/HCC) Uncontrolled, likely needs Humalog adjusted for carb load. Continue Lantus 12 units and follow-up with coagulating bath operator, she is off Jardiance due to side effects. Discussed importance of having small and fractioned meals I will follow-up in 3 to 4 months Referral to ophthalmology to [facility] ([facility]) She has been referred to neckties painter for toenail trimming Relevant Orders POCT Glucose [...] BEFORE MEALS DIRECTED Lancets (OneTouch Delica Plus Himtox11R) misc TEST BLOOD SUGAR 4 TIMES A [...] (800 mg) po bid for 5 days. Togolese label 40 capsule 0 mycophenolate (Myfortic) 180 [...] EVENING 180 tablet 0 Pentips Generic Pen Wesley 32G X 4 MM misc USE FOUR TIMES DAILY DIRECTED 100 each 5 polyethylene glycol, PEG, 3350 (MiraLax Mix-In [place]) 17 g packet Take 1 packet by [...] 3:48 PM EDT Associated Problem(s): Diabetes mellitus ([facility]) Uncontrolled, likely needs Humalog adjusted for carb load. Continue Lantus 12 units and follow-up with coagulating bath operator, she is off Jardiance due to side effects. Discussed importance of having small and fractioned meals I will follow-up in 3 to 4 months Referral to ophthalmology to [facility] ([facility]) She has been referred to neckties painter for toenail trimming documented in this encounter Plan of Treatment Upcoming Encounters Date Type Department Care Team (Late st Contact Info) Description 10/03/2024 11:30 AM EDT Office Visit [facility] [address] [place] [address] Ana María Bryan MD [address] [place] [address] Scheduled Referrals Name Type Priority Associated Diagnoses [...] COVID Ag Negative QC Media Lot # [id number] Lot# Expiration Date 63,026 Swab 07/04/2024 11:3 [...] whether stage 3a or 3b CKD (CMS/HCC) Flu-like symptoms Seasonal allergic rhinitis due to other allergic trigger documented in this encounter Additional Health Concerns Assessment Noted Time PHQ-9 Depression Total Score: 1 04/13/19 23 10:26 AM EST documented as of this encounter Care Teams Banana Room Cutter Relationship Specialty Start Date End Date Ana María Bryan MD [address] [place] [address] PCP - General Family Medicine 03/26/18 documented as of this encounter
--- OUTSIDE RECORDS SUMMARY | 2024-07-08 12:13 | XMS_ITS | Clinical Summary ---
Author Organization [facility] Address [address] [place] [address] Care Team Providers Care Phlebotomy Specialist Name Role Phone Pcp, No Primary Care [...] age to complete this topic Care Teams Phlebotomy Specialist Relationship Specialty Start Date End Date Pcp, No [address] [place] [address] PCP - General 12/17/19
--- OUTSIDE RECORDS SUMMARY | 2024-07-08 12:13 | XMS_ITS | Encounter Summary ---
Author Organization [employer] Address [address] [facility] 7t [place] [address] Care Team Providers Care Supervisor Carbon Electrodes Name Role Phone Ana María Bryan MD Primary Care Provider + Reason for Visit * Reason Comments Med Refill Encounter Details Date Type Department Care Team (Late st Contact Info) Description 11/21/2022 Refill [facility] [address] [place] [address] Ana María Bryan MD [address] [place], [place] [phone] Type 2 diabetes mellitus with stage 3 [...] Description 10/03/2024 11:30 AM EDT Office Visit [facility] [address] [place] [address] Ana María Bryan MD [address] [place] [address] documented as of this encounter Visit Diagnoses Diagnosis Type 2 diabetes mellitus with stage 3 chronic kidney disease, with long-term current use of insulin, unspecified whether stage 3a or 3b CKD (CMS/HCC) documented in this encounter Additional Health Concerns Assessment Noted Time PHQ-9 Depression Total Score: 1 04/13/19 23 10:26 AM EST documented as of this encounter Care Teams Supervisor Carbon Electrodes Relationship Specialty Start Date End Date Ana María Bryan MD [address] [place] [address] PCP - General Family Medicine 03/26/18 documented as of this encounter
--- OUTSIDE RECORDS SUMMARY | 2024-07-08 12:13 | XMS_ITS | Encounter Summary ---
Author Organization [employer] Address 75 [facility] 7t [place] [address] Care Team Providers Care Csr Name Role Phone Ana María Bryan MD Primary Care Provider + Encounter Details Date Type Department Care Team (Latest Contact Info) Description 01/29/2019 Abstract [facility] CONVERSIONS Dental, Provider, DDS Social [...] Description 10/03/2024 11:30 AM EDT Office Visit [facility] MEDICINE [address] [place] [address] Ana María Bryan MD [address] [place] [address] documented as of this encounter Visit Diagnoses Not on filedocumented in this encounter Care Teams Csr Relationship Specialty Start Date End Date Ana María Bryan MD [address] [place] [address] PCP - General Family Medicine 03/26/18 documented as of this encounter
--- OUTSIDE RECORDS SUMMARY | 2024-07-08 12:13 | XMS_ITS | Encounter Summary ---
Author Organization [employer] Address [address] [facility] 7t [place] [address] Care Team Providers Care Shell Maker Lockstitch Name Role Phone Ana María Bryan MD Primary Care Provider + Encounter Details Date Type Department Care Team (Late st Contact Info) Description 03/17/2022 Orders Only [facility] MED[facility]INE [address] [place] [address] Dary Nuno MD [address] [place] [address] Acute deep vein thrombosis (DVT) of proximal [...] 11:30 AM EDT Office Visit [facility] [address] [place] [address] Ana María Bryan MD [address] [place] [address] documented as of this encounter Visit Diagnoses Diagnosis Acute deep vein thrombosis (DVT) of proximal vein of right lower extremity (CMS/HCC)- Primary documented in this encounter Care Teams Shell Maker Lockstitch Relationship Specialty Start Date End Date Ana María Bryan MD [address] [place] [address] PCP - General Family Medicine 03/26/18 documented as of this encounter
--- OUTSIDE RECORDS SUMMARY | 2024-07-08 12:13 | XMS_ITS | Encounter Summary ---
Author Organization [employer] Address 75 [facility] 7t [place] [address] Care Team Providers Care Service Center Coordinator Name Role Phone Ana María Bryan MD Primary Care Provider + Encounter Details Date Type Department Care Team (Late Contact Info) Description 05/08/2022 [facility] [employer] [address] [place] [address] Ana María Bryan MD [address] [place] [address] Social History Tobacco Use Types Packs/Day Years [...] Description 10/03/2024 11:30 AM EDT Office Visit [facility] [address] [place] [address] Ana María Bryan MD [address] [place] [address] documented as of this encounter Visit Diagnoses Not on filedocumented in this encounter Additional Health Concerns Assessment Noted Time PHQ-9 Depression Total Score: 1 04/13/19 23 10:26 AM EST documented as of this encounter Care Teams Service Center Coordinator Relationship Specialty Start Date End Date Ana María Bryan MD [address] [place] [address] PCP - General Family Medicine 03/26/18 documented as of this encounter
--- OUTSIDE RECORDS SUMMARY | 2024-07-08 12:13 | XMS_ITS | Encounter Summary ---
Author Organization [employer] Address [address] [facility] 7t [place] [address] Care Team Providers Care Burlap Man Name Role Phone Ana María Bryan MD Primary Care Provider + Encounter Details Date Type Department Care Team (Late Contact Info) Description 09/12/2022 Abstract [facility] MEDICINE [address] [place] [address] Ana María Bryan MD [address] [place] [address] Social History Tobacco Use Types Packs/Day Years [...] 11:30 AM EDT Office Visit [facility] [address] [place] [address] Ana María Bryan MD [address] [place] [address] documented as of this encounter Procedures Procedure [...] documented as of this encounter Care Teams Burlap Man Relationship Specialty Start Date End Date Ana María Bryan MD [address] [place] [address] PCP - General Family Medicine 03/26/18 documented as of this encounter
== END 2024-07-08 10:53 | disposition home or self-care (01) ==
LOC: HO.ENCR 10:16
PROVIDERS: PCP Internal Medicine; Visit Provider Internal Medicine Endocrinology, Diabetes & Metabolism
DX: M81.0 Age-related osteoporosis without current pathological fracture (principal)
CPT/HCPCS: 99213

== ENCOUNTER → 2024-07-08 10:16 | Outpatient (BNVA) | payer OTHER, SELFPAY | PROVIDERS: PCP Internal Medicine; Visit Provider Internal Medicine Endocrinology, Diabetes & Metabolism | DX: M81.0 Age-related osteoporosis without current pathological fracture (principal) | CPT/HCPCS: 96372; 99212; J0897 ==

== ENCOUNTER 2024-08-04 10:02 | Outpatient (AMB) | payer OTHER, SELFPAY ==
[2024-08-04 10:08] VITALS: BP 160/68; PULSE 71; O2SAT 96; BMI 22.9
--- NOTE | 2024-08-04 10:08 | MHC.OFFVIS ---
Vital Signs 08/04/24 10:08 Height 4 ft 9.36 in Weight 107 lb 2.314 oz BMI 22.9 BP 160/68 H Blood Pressure Location Rt brachial Position Sitting Pulse 71 Pulse Source Pulse Oximeter Pulse Oximetry (%) 96 Oxygen Delivery Method Room Air Intake Visit Reasons: T2DM Intake Note: Patient present today for Type 2 Diabetes Mellitus Last Diabetic eye exam: Over a year ago Last Podiatry Visit: 05/2024 Random Glucose: 136 mg/dl HgA1C: 7.8% 07/02/24 Signs And Displays Sales Representative Required: Yes Signs And Displays Sales Representative Language: Human Services Worker Services: Signs And Displays Sales Representative Present Signs And Displays Sales Representative Name: Mya [id number] Information Interpreted: non-clinical & clinical Accompanied by: Daughter Allergies diphenhydramine [From Benadryl] Adverse Reaction (Verified 08/04/24 10:13) Anxiety Medication List - Last Reconciled 08/04/24 by Bela Jackson PA-C acetaminophen 500 mg PO NEEDED PRN apixaban (Eliquis) 5 mg PO DAILY ascorbic acid (vitamin C) (Vitamin C) 500 mg PO QAM atorvastatin 80 mg PO BEDTIME blood sugar diagnostic (StormWind Verio test strips) 4 times in day blood-glucose meter (StormWind Verio Flex Meter) As directed blood-glucose sensor (Tapdaq G7 Sensor device) Use daily As directed to monitor glucose. change q 10 days cefuroxime axetil 500 mg PO BID 7 days cholecalciferol (vitamin D3) (Vitamin D3) 50 mcg (2 x 25 mcg (1,000 unit)) PO QAM docusate sodium 100 mg PO BID ferrous sulfate 325 mg PO BID fluticasone propionate 50 mcg/actuation 1 - 2 sprays intranasal DAILY PRN gabapentin 100 mg PO DAILY insulin glargine (Lantus Solostar U-100 Insulin) 15 units (0.15 mL) subcut QPM insulin lispro (Humalog KwikPen (U-100) Insulin) 2 - 5 units (0.02 - 0.05 mL) subcut TID lancets (Solus BiosystemsTouch Delica Plus Lancet) TEST BLOOD SUGAR 4 TIMES A DAY lisinopril 2.5 mg PO QAM melatonin 5 mg PO BEDTIME molnupiravir (Lagevrio) mg PO mycophenolate sodium 180 mg PO BID oxycodone 5 mg PO Q6H PRN pantoprazole 40 mg PO DAILY pen needle, diabetic (BD Florencia 2nd Gen Pen Needle) twice a day prednisone 5 mg PO DAILY tacrolimus 3 mg PO BID trazodone 200 mg PO BEDTIME PRN HPI HPI T2DM: Details: Patient is a 74-year-old female with a significant past medical history of diabetes, history of end-stage renal disease, s/p renal transplant, hypertension, hyperlipidemia, chronic anticoagulation, osteoporosis presenting today for a follow up regarding her diabetes. Sports Broadcaster Mya. Patient is also accompanied by her daughter who is a caregiver. Dm-She was seen recently by myself and provided a Dexcom. She has not yet gotten them from the pharmacy. Her A1c was 7.8. She is currently on Lantus 12 units nightly, Humalog 4-8 units 3 times a day She reports having 3 low blood sugars in the late afternoon/barrel and receiver aligner. -She was getting utis with the jardiance and this was recently d/c'd by her bulk sealer operator. cgm-has been unable to get this. Needs it to go through [facility]. She states that she is rarely ever hypoglycemic and this only ever happens if she does not eat something because of the stress. She has not had any hypoglycemia in the last week. On an GEORGETTE inhibitor Nephro: History of end-stage renal disease, s/p renal transplant 2011. Follows with Dr. Parr. CV: Blood pressure today in the office is 132/50. She is on lisinopril 2.5 mg. Cholesterol controlled with 80 mg of atorvastatin. 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 Mother No problems noted. Sister Breast cancer Diabetes Maternal Aunt Cancer Maternal Uncle Cancer Social History Household Members: Spouse Alcohol intake: never Patient Tobacco Use Status: Never used Tobacco service: No Current occupational status: retired Gender identity: Female Physical Exam Vital Signs: Last Vital Signs Pulse 71 08/04/24 10:08 BP 160/68 H 08/04/24 10:08 Pulse Ox 96 08/04/24 10:08 Oxygen Delivery Method Room Air 08/04/24 10:08 BMI result Body Mass Index 22.9 Const Orientation/consciousness: patient oriented x3 HEENT Ears: hearing grossly normal bilaterally Neck Neck: Yes no lymphadenopathy Thyroid: Thyroid normal Carotids: no bruits Lymphatic: no lymphadenopathy noted Resp Auscultation: clear to auscultation bilaterally Cardio Rate: regular rate Rhythm: regular rhythm Heart sounds: S1 normal heart sound present and S2 normal heart sound present Peripheral pulses: dorsalis pedis present Skin General skin exam: no rashes or lesions noted Neuro General: patient oriented x3, gait normal and no focal motor deficits Extrem Other: Monofilament sensation intact bilaterally. Vibratory sensation intact bilaterally. Skin intact. General: Yes normal to inspection Results Reviewed Results Reviewed: Laboratory Tests 01/01/24 07/02/24 10:37 09:45 Sodium 140 Potassium 4.1 Chloride 106 Carbon Dioxide 24 Anion Gap 14 BUN 33 H Creatinine 0.99 Estimated GFR 55 Hemoglobin A1c % 7.8 H Triglycerides 97 Cholesterol 138 LDL Cholesterol, Calc 61 HDL Cholesterol 58 Assessment & Plan Assessment & Plan (1) Diabetic nephropathy associated with type 2 diabetes mellitus: Code(s): E11.21 - Type 2 diabetes mellitus with diabetic nephropathy Category: Medical Plan: reduce lantus to 10 units and sliding scale for humalog to 2-6 units sensors sent to [facility]. will let me know if any issues with this. Renal function stable. Follows closely with Nephrology. (2) Hypertension: Code(s): I10 - Essential (primary) hypertension Category: Medical Plan: WNL. Continue current regimen. (3) Dyslipidemia: Code(s): E78.5 - Hyperlipidemia, unspecified Category: Medical Plan: well-controlled with the atorvastatin last LDL 67 Medications: New glucose (Dex4 Glucose) until symptoms of low blood sugar are controlled 16 grams (4 x 4 gram) PO Q15M PRN 100 tabs 0RF hypoglycemia glucose (Dex4 Glucose) until symptoms of low blood sugar are controlled 16 grams (4 x 4 gram) PO Q15M PRN 100 tabs 0RF hypoglycemia Changed From insulin glargine (Lantus Solostar U-100 Insulin) 15 units (0.15 mL) subcut QPM 15 mL 5RF E11.65 - Type 2 diabetes mellitus with hyperglycemia To insulin glargine (Lantus Solostar U-100 Insulin) 10 units (0.1 mL) subcut QPM 15 mL 5RF E11.65 - Type 2 diabetes mellitus with hyperglycemia From insulin lispro (Humalog KwikPen (U-100) Insulin) 2 - 5 units (0.02 - 0.05 mL) subcut TID 15 mL 5RF E11.65 - Type 2 diabetes mellitus with hyperglycemia To insulin lispro (Humalog KwikPen (U-100) Insulin) 2 - 6 units (0.02 - 0.06 mL) subcut TID 15 mL 5RF E11.65 - Type 2 diabetes mellitus with hyperglycemia Refilled blood-glucose sensor (Tapdaq G7 Sensor device) Use daily As directed to monitor glucose. 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
[2024-08-04 10:19] LABS: Glucose, Whole Blood 136 mg/dL (60-115)
--- OUTSIDE RECORDS SUMMARY | 2024-08-04 10:27 | XMS_ITS | Encounter Summary ---
Author Organization [employer] Address [address] [facility] [address] [place] [address] Care Team Providers Care Physical Integration Practitioner Name Role Phone Ana María Bryan MD Primary Care Provider + Reason for Visit * Reason Comments Med Refill Encounter Details Date Type Department Care Team (Late st Contact Info) Description 11/18/2023 Refill [facility] [address] [place] [address] Ana María Bryan MD [address] [place] [address] Acute deep vein thrombosis (DVT) of proximal [...] 10/03/2024 11:30 AM EDT Office Visit [facility] [address] [place] [address] Ana María Bryan MD [address] [place] [address] documented as of this encounter Visit Diagnoses Diagnosis Acute deep vein thrombosis (DVT) of proximal vein of right lower extremity (CMS/HCC) documented in this encounter Additional Health Concerns Assessment Noted Time PHQ-9 Depression Total Score: 1 04/13/19 23 10:26 AM EST documented as of this encounter Care Teams Physical Integration Practitioner Relationship Specialty Start Date End Date Ana María Bryan MD [address] [place] [address] PCP - General Family Medicine 03/26/18 documented as of this encounter
--- OUTSIDE RECORDS SUMMARY | 2024-08-04 10:27 | XMS_ITS | Encounter Summary ---
Author Organization [employer] Address [address] [facility] [address] [place] [address] Care Team Providers Care Director Of Database Marketing Name Role Phone Ana María Bryan MD Primary Care Provider + Reason for Visit * Reason Comments Med Refill Encounter Details Date Type Department Care Team ([facility] st Contact Info) Description 10/29/2023 Refill [facility] [address] [place] [address] Ana María Bryan MD [address] [place] [address] Primary insomnia Social History Tobacco Use Types [...] Description 10/03/2024 11:30 AM EDT Office Visit [facility] [address] [place] [address] Ana María Bryan MD [address] [place] [address] documented as of this encounter Visit Diagnoses Diagnosis Primary insomnia Persistent disorder of initiating or maintaining sleep documented in this encounter Additional Health Concerns Assessment Noted Time PHQ-9 Depression Total Score: 1 04/13/19 23 10:26 AM EST documented as of this encounter Care Teams Director Of Database Marketing Relationship Specialty Start Date End Date Ana María Bryan MD [address] [place] [id number] PCP - General Family Medicine 03/26/18 documented as of this encounter
--- OUTSIDE RECORDS SUMMARY | 2024-08-04 10:28 | XMS_ITS | Encounter Summary ---
Author Organization [employer] Address [address] [facility] 7t [place] [address] Care Team Providers Care Kosher Butcher Name Role Phone Ana María Bryan MD Primary Care Provider + Encounter Details Date Type Department Care Team (Late st Contact Info) Description 09/12/2022 Abstract [facility] MEDICINE [address] [place] [id number] Ana María Bryan MD [address] [place] [address] Social History Tobacco Use Types Packs/Day Years [...] Description 10/03/2024 11:30 AM EDT Office Visit [facility] [address] [place] [address] Ana María Bryan MD [address] [place] [address] documented as of this encounter Procedures Procedure [...] documented as of this encounter Care Teams Kosher Butcher Relationship Specialty Start Date End Date Ana María Bryan MD [address] [place] [address] PCP - General Family Medicine 03/26/18 documented as of this encounter
--- OUTSIDE RECORDS SUMMARY | 2024-08-04 10:28 | XMS_ITS | Encounter Summary ---
Author Organization [employer] Address [address] [facility] [address]t [place] [address] Care Team Providers Care Wood Processing Worker Name Role Phone Ana María Bryan MD Primary Care Provider + Encounter Details Date Type Department Care Team (Late st Contact Info) Description 05/08/2022 [facility] [employer] [address] [place] [address] Ana María Bryan MD [address] [place] [address] Social History Tobacco Use Types Packs/Day Years [...] Description 10/03/2024 11:30 AM EDT Office Visit [facility] MEDICINE [address] [place] [address] Ana María Bryan MD [address] [place] [address] documented as of this encounter Visit Diagnoses Not on filedocumented in this encounter Additional Health Concerns Assessment Noted Time PHQ-9 Depression Total Score: 1 04/13/19 23 10:26 AM EST documented as of this encounter Care Teams Wood Processing Worker Relationship Specialty Start Date End Date Ana María Bryan MD [address] [place] [address] PCP - General Family Medicine 03/26/18 documented as of this encounter
--- OUTSIDE RECORDS SUMMARY | 2024-08-04 10:28 | XMS_ITS | Encounter Summary ---
Author Organization [employer] Address [address] [facility] 7t [place] [address] Care Team Providers Care Tread Tuber Machine Operator Name Role Phone Ana María Bryan MD Primary Care Provider + Encounter Details Date Type Department Care Team (Latest Contact Info) Description 01/29/2019 Abstract [facility] CONVERSIONS Dental, Provider, DDS Social [...] [facility] MEDICINE [address] [place] [address] Ana María Bryan MD [address] [place] [address] documented as of this encounter Visit Diagnoses Not on filedocumented in this encounter Care Teams Tread Tuber Machine Operator Relationship Specialty Start Date End Date Ana María Bryan MD [address] [place] [address] PCP - General Family Medicine 1/1/19 documented as of this encounter
--- OUTSIDE RECORDS SUMMARY | 2024-08-04 10:28 | XMS_ITS | Encounter Summary ---
Author Organization [employer] Address [address] [facility] [address] [place] [address] Care Team Providers Care Mooner Name Role Phone Ana María Bryan MD Primary Care Provider + Encounter Details Date Type Department Care Team (Late st Contact Info) Description 05/11/2022 Orders Only [facility] MEDICINE [address] [place] [address] Vandana Ledesma DO [address] [place] [address] Social History Tobacco Use Types Packs/Day Years [...] [facility] MEDICINE [address] [place] [address] Ana María Bryan MD [address] [place] [address] documented as of this encounter Visit Diagnoses Not on filedocumented in this encounter Additional Health Concerns Assessment Noted Time PHQ-9 Depression Total Score: 1 04/13/19 23 10:26 AM EST documented as of this encounter Care Teams Mooner Relationship Specialty Start Date End Date Ana María Bryan MD [address] [place] [address] PCP - General Family Medicine 03/26/18 documented as of this encounter
--- OUTSIDE RECORDS SUMMARY | 2024-08-04 10:28 | XMS_ITS | Clinical Summary ---
Author Organization [facility] Address [address] [place] [address] Care Team Providers Care Elevator Technician Name Role Phone Pcp, No Primary Care Provider Unavailabl e Social History Tobacco Use Types Packs/Day Years Used Date Smoking Tobacco: Never Assessed Comments Unknown Sex and Gender Information Value Date Recorded Sex Assigned at Not on file Legal Sex Female 11:48 AM EDT Gender Identity Not on file Sexual Orientation Not on file Plan of Treatment Health Maintenance Due Date Last Done Comments Hepatitis C Virus Screening 1950 DTaP/Tdap/Td Vaccines (1 - Tdap) 1968 Mammogram 1989 Colonoscopy 1994 Pneumococcal Vaccines 50+ (1 of 1 - PCV) 06/28/1999 Zoster (Shingles) Vaccine (1 of 2) 06/28/1999 DXA Bone Density (Females,Ag es 65 and older) 2014 COVID-19 Vaccine ( - 2023-2 5 season) 2023 RSV Vaccine 60 years and old er and Patients (1 - 1-dose 75+ series) 2024 Influenza Vaccine 10/24/2024 Hepatitis B Vaccines Aged Out No long er eligible based on patient's age to complete this topic Insurance [facility] MEDICARE MEDICAID OUT OF STATE [facility] Care Teams Elevator Technician Relationship Specialty Start Date End Date Pcp, No [address] [place] [address] PCP - General 12/17/19
--- OUTSIDE RECORDS SUMMARY | 2024-08-04 10:28 | XMS_ITS | Clinical Summary ---
Author Organization [employer] Address [address] [facility] [address] [place] [address] Care Team Providers Care Service Inspector Name Role Phone Ana María Bryan MD Primary Care Provider + Allergies Active Allergy Reactions Criticality Noted Date Comments Diphenhydramine Unknown 08/18/2016 Other reaction(s): Other (see comments) feeling of panic Medications Aspirin Low Dose 81 MG EC tablet TAKE 1 TABLET BY MOUTH EVERY MORNING 02/25/20 22 Active Blood Glucose Monitoring Suppl (ONE TOUCH ULTRA 2) w/Device kit USE DIRECTED 12/08/19 22 Active Vitamin D High Potency 25 MCG (1000 UT) capsule TAKE 2 CAPSULES BY MOUTH ONCE DAILY IN THE MORNING 02/25/20 22 Active denosumab (Prolia) 60 MG/ML solution prefilled syringe inject 1 milliliter by subcutaneous route every 6 months in the upper arm, upper thigh or abdomen Active Lantus SoloStar 100 UNIT/ML pen INJECT 10 UNITS SUBCUTANEOUSLY EVERY EVENING 12/31/19 22 Active HumaLOG KWIKPEN 100 UNIT/ML injection INJECT 2-5 UNITS SUBCUTANEOUSLY THREE TIMES DAILY BEFORE MEALS DIRECTED 12/31/19 22 Active Lancets (OneTouch Delica Plus [id number]) [facility] TEST BLOOD SUGAR 4 TIMES A DAY 02/25/20 22 Active mycophenolate (Myfortic) 180 MG EC tablet TAKE 1 TABLET BY MOUTH TWICE DAILY IN THE MORNING AND IN THE EVENING 02/25/20 22 Active Veltassa 8.4 g pack MIX 1 PACKAGE IN WATER AND TAKE DAILY DIRECTED 02/25/20 22 Active predniSONE (Deltasone) 5 MG tablet TAKE 1 TABLET BY MOUTH EVERY MORNING 02/25/20 22 Active tacrolimus (Prograf) 1 MG capsule TAKE 2 CAPSULES BY MOUTH TWICE DAILY IN THE MORNING AND EVENING 02/25/20 22 Active polyethylene glycol, PEG, 3350 (MiraLax Mix-In Sayner) 17 g packetIndications:S low transit constipation Take 1 packet by mouth every day mixed with 8 oz water, juice, soda, coffee, or tea. 30 packet 04/04/19 23 Active glucose (Glutose) 40 % gel oral gelIndications:Type 2 diabetes mellitus with stage 3 chronic kidney disease, with long-term current use of insulin, unspecified whether stage 3a or 3b CKD (CMS/HCC) TAKE 1/2 TUBE BY MOUTH NEEDED HYPOGLYCEMIA DIRECTED 30 g 5 11/22/19 23 Active lisinopril 2.5 MG tablet TAKE 1 TABLET BY MOUTH EVERY MORNING 90 tablet 1 02/10/20 23 Active OneTouch Ultra Test test stripIndications:Ty pe 2 diabetes mellitus with stage 3 chronic kidney disease, with long-term current use of insulin, unspecified whether stage 3a or 3b CKD (CMS/HCC) TEST BLOOD SUGAR FOUR TIMES DAILY 100 strip 11 09/28/19 24 Active Molnupiravir 200 MG capsule Take 800 mg by mouth 2 times daily. Take 4 tabs (800 mg) po bid for 5 days. 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 TAKE 1 TABLET BY MOUTH EVERY MORNING 90 tablet 1 02/14/20 24 Active Pentips Generic Pen [place] 32G X 4 MM misc USE FOUR TIMES DAILY DIRECTED 100 each 5 02/18/20 24 Active traZODone (Desyrel) 100 MG tablet TAKE 1 TABLET BY MOUTH TWICE DAILY IN THE MORNING AND AT BEDTIME AFTER MEALS 60 tablet 3 04/23/19 25 Active melatonin 5 MG tabletIndications:P rimary insomnia TAKE 1 TABLET BY MOUTH AT BEDTIME 90 tablet 04/23/19 25 Active gabapentin (Neurontin) 100 MG capsule TAKE 1 CAPSULE BY MOUTH AT BEDTIME 90 capsule 1 06/24/19 25 Active pantoprazole (ProtoNix) 40 MG EC tabletIndications:U pper gastrointestinal bleeding TAKE 1 TABLET BY MOUTH TWICE DAILY IN THE MORNING AND IN THE EVENING 180 tablet 06/24/19 25 Active Acetaminophen Extra Strength 500 MG tablet 1 tab po tid prn pain/fever/TRAVIS 60 tablet 07/05/19 25 Active fluticasone (Flonase) 50 MCG/ACT nasal sprayIndications:Se asonal allergic rhinitis due to other allergic trigger Use 1-2 sprays in each nostril every day as needed 48 g 07/05/19 25 Active Active Problems Problem Noted Date [...] vs gastroparesis. r/o PUD. Refer to GI, [facility] does not accept patient's insurance. Will refer to [facility]. Counseled to drink herbal tea prior to [...] colonic polyp 03/24/2022 Overview (08/15/2023): Colonoscopy at [facility] on 03/15/22 (admitted due to [...] at least until august and FU with profiling machine set up operator tool. We discussed avoid prolonged rest, ambulation with [...] mg daily. Jardiance held at admission. -Monitor jyazz-ec-nzty glucose with meals and nightly, and every 6 hours when n.p.o. -Insulin sliding scale with meals and nightly -Lantus given just 5 units at bedtime -Uptitrate insulin after diet is advanced Assessment & Plan (07/04/2024 3:48 PM EDT): Uncontrolled, likely needs Humalog adjusted for carb load. Continue Lantus 12 units and follow-up with air intercept controller, she is off Jardiance due to side effects. Discussed importance of having small and fractioned meals I will follow-up in 3 to 4 months Referral to [facility]mology [facility] ([facility]) She has been referred to religious leader for toenail trimming Assessment & Plan (08/15/2023 11:55 AM EDT): Controlled. A1c is at goal. Continue on Lantus 10 units she will lower to 8 units only if she has persistent blood sugar below 70. Counseled re more frequent low calorie/carb meals. Check fgstk 3x daily Encouraged physical activity as tolerated. FU in 3 months. F/u with air intercept controller Assessment & Plan (10/23/2022 5:09 PM EDT): [...] at goal. -She has follow up with Financial Reporting Analyst next month. -Continue humalog sliding scale + [...] status post renal transplant - fu with medical insurance collector - continue on Prograf + Mycophenolate Assessment [...] low dose lisinopril and fu with me board liner operator in 3 weeks Check potassium next week. [...] Encounters Date Type Department Care Team Description 08/04/2024 Orders Only GENERIC EXTERNAL DATA DEPARTMENT Provider, Generic External Data 07/06/2024 Orders Only [facility] 07/04/2024 11:30 AM EDT Office Visit [facility] MED[facility]INE [address] [place] [phone] Ana María Bryan MD Type 2 diabetes mellitus with stage 3 chronic kidney disease, with long-term current use of insulin, unspecified whether stage 3a or 3b CKD ([facility]); Flu-like symptoms; Seasonal allergic rhinitis due to other allergic trigger 07/04/2024 Abstract [facility] [address] [place] [phone] Ana María Bryan MD 07/04/[address] [address] Ana María Bryan MD Results 07/04/2024 Travel 07/02/[address] [address] Ana María Bryan MD Chart prep 07/02/2024 Orders Only GENERIC EXTERNAL DATA DEPARTMENT Provider, Generic External Data 06/30/2024 Orders Only GENERIC EXTERNAL DATA DEPARTMENT Provider, Generic External Data 06/25/2024 Patient Outreach [address] [address] Ijeoma Kaiser Pre-visit Planning 06/22/[address] [address] Ana María Bryan MD Upper gastrointestinal bleeding from Last 3 Months Immunizations Name Administration [...] Description 10/03/2024 11:30 AM EDT Office Visit [facility]ICINE [address] [place] [address] Ana María Bryan MD [address] [place] [address] Health Maintenance Due Date Last Done Comments [...] Associated Diagnosis Comments GLUCOSE, WHOLE BLOOD Routine 08/04/2024 10:[address] CHEST WO CONTRAST Routine 07/06/2024 10:24 [...] 3b CKD ([facility]) VITAMIN D,25-OH,TOTAL,IA Routine 07/02/2024 9:45 AM EDT ALBUMIN Routine 07/02/2024 9:45 AM EDT BASIC METABOLIC PANEL Routine 07/02/2024 9:45 AM EDT PTH, INTACT WITHOUT CALCIUM Routine 07/02/2024 9:45 AM EDT HEMOGLOBIN A1C Routine 07/02/2024 9:45 AM EDT GLUCOSE, WHOLE BLOOD Routine 06/30/2024 1:37 PM EDT LIPID PANEL WITH REFLEX TO DIRECT LDL Routine 01/01/2024 10:37 AM EDT Type 2 diabetes mellitus with stage 3 chronic kidney disease, with long-term current use of insulin, unspecified whether stage 3a or 3b CKD ([facility]) HM COLONOSCOPY Routine 03/15/2022 from Last 3 Months or Most Recently Relevant to Health Maintenance Results * (ABNORMAL) Glucose, Whole Blood (08/04/2024 10:15 AM EDT) Only the most recent of2 resultswithin the time period is included. Glucose, Whole Blood 136(H) 60 - 115 mg/dL [facility] Comment:METER #: [id number] Testing performed in the Endocrinology Department [address] , [address], [facility]. 08/04/2024 10:1 5 AM EDT 08/04/2024 10:19 AM EDT us Generic External Data Provider LAB BLOOD ORDERAB LES Final Result [facility] [address] [place] [phone] * CT Chest w/o Contrast (07/06/2024 10:24 PM EDT) Anatomical Region Laterality Modality Body, Chest Computed Tomogra phy 07/06/2024 10:2 4 PM EDT Narrative 07/06/2024 10:27 PM EDT ? [facility] ?[address] ?[place] [address] ? CT Scan Report ? Signed ? Patient: Sofiya Julian ?MR#: [id number] ?? [id number] ? : 1950 ?Acct:[id number] ? Age/Sex: 74 / F ?ADM Date: 07/06/24 ? Loc: HO.ED ? Attending Dr: ? Ordering Physician: Kunal Gan MD ?? Date of Service: 07/06/24 ?? Procedure(s): CT chest wo IV con ?? Accession Number(s): [id number] ? cc: Ana María Bryan MD; Kunal Gan MD ? Report Number: ?? [id number]: Total DLP = ??162.00 mGy-cm ? CLINICAL [...] ? DD/ 23 ? TD/TT: 07/06/242223 ? Bookkeeping Machine Operator: ? Procedure Note Lonnieter, Image - 07/06/[address] [place] [address] [address] Scan Report Signed Patient: Sofiya Julian [facility]#: [id number] : 1950Acct:[id number] Age/Sex: 74 / FADM Date: 07/06/24 Loc: HO.ED Attending Dr: Ordering Physician: Kunal Gan MD Date of Service: 07/06/24 Procedure(s): CT chest wo IV con Accession Number(s): [id number] cc: Ana María Bryan MD; Kunal Gan MD Report Number: [id number]: Total DLP = 162.00 mGy-cm CLINICAL HISTORY: [...] in OV> 07/06/242225 DD/ 23 TD/TT: 07/06/242223 Bookkeeping Machine Operator: [facility] External Provider IMG CT PROCEDURES Edited Result - Final * Culture, Urine, Routine (07/06/2024 10:00 PM EDT) Urine Urine specimen obtained by clean catch procedure / Unknown 07/06/2024 10:00 PM EDT 07/06/2024 10:00 PM EDT Comment:[facility] - 07/09/2024 7:51 AM EDT Citrobacter species Quant > 100,000 cfu/mL Citrobacter species: Cefazolin >=32(R) Citrobacter species: Cefepime <=0.12(S) Citrobacter species: Ceftriaxone 0.5(S) Citrobacter species: Ciprofloxacin 0.12(S) Citrobacter species: Gentamicin <=1(S) Citrobacter species: Nitrofurantoin 32(S) Citrobacter species: Trimethoprim/Sulfamethoxazole <=20(S) Specimen Source: Urine clean catch Generic External Data Provider LAB MICROBIOLOGY - GENERAL ORDERABLES Final Result [facility] [address] [place] [phone] * (ABNORMAL) Urinalysis, Complete, with Reflex to Culture (07/06/2024 9:13 PM EDT) Color Urine Yellow [facility] Appearance Urine Turbid [facility] PH 5.5 5.0 - 9.0 [facility] Glucose Urine UA >=1000(A) Negative mg/dL [facility] Urine Blood Small (1+)(A) Negative [facility] Specific [place] - Urine 1.010 1.005 - 1.025 [facility] Urine Protein Trace Neg-Trace mg/dL [facility] Urine Ketones Negative Negative mg/dL [facility] Nitrite Urine Negative Negative [facility] Leukocyte Esterase Urine Large (3+)(A) Negative [facility] RBC Urine 3-5(A) 0 - 2 /HPF [facility] Urine WBC >50(A) 0 - 5 /HPF [facility] WBC CLUMPS, UR Present [facility] Urine Squamous Epithelial Cell 3-5 0 - 2 /HPF [facility] Urine Bacteria 3+ None Seen [facility] Hyaline Casts, Urine 0-2 0 - 2 /LPF [facility] 07/06/2024 9:13 PM EDT 07/06/2024 9:26 PM EDT Narrative [facility] - 07/06/2024 9:59 PM EDT Urine, Clean Catch us Generic External Data Provider LAB URINE ORDERAB LES Final Result Performing Organization Address City/State/[facility] [[email or web address]] Co de Phone Number [facility] [address] [place] [address] [phone] * XR RIBS BILATERAL 4+ VW W PA CHEST (07/06/2024 8:41 PM EDT) Anatomical Region Laterality Modality Rib, Abdomen Bilateral Radiographic [place] ging 07/06/2024 8:41 PM EDT Narrative 07/06/2024 8:43 PM EDT ? [facility] ?[address] ?[place] [address] ?XRay Report ? Signed ? Patient: Jose Gallegos,Sofiya N ?MR#: [id number] ?? [id number] ? : 1950 ?Acct:[id number] ? Age/Sex: 74 / F ?ADM Date: 07/06/24 ? Loc: HO.ED ? Attending Dr: ? Ordering Physician: Trini Connelly NP ?? Date of Service: 07/06/24 ?? Procedure(s): XR ribs BI min 4V w CXR1V ?? Accession Number(s): [id number] ? cc: Ana María Bryan MD; Trini [...] ? DD/ 40 ? TD/TT: 07/06/242040 ? Bookkeeping Machine Operator: ? Procedure Note Suad Newsome - 07/06/2024 [place] [address] XRay Report Signed Patient: Sofiya Julian [facility]#: [id number] : 1950Acct:[id number] Age/Sex: 74 / FADM Date: 07/06/24 Loc: HO.ED Attending Dr: Ordering Physician: Trini Connelly NP Date of Service: 07/06/24 Procedure(s): XR ribs BI min 4V w CXR1V Accession Number(s): [id number] cc: Ana María Bryan MD; Trini Connelly [...] in OV> 07/06/242041 DD/ 40 TD/TT: 07/06/242040 Bookkeeping Machine Operator: Result [facility] External Provider IMG XR PROCEDURES Edited Result - Final * POCT Rapid Covid-19 BinaxNOW (07/04/2024 11:35 AM EDT) [facility] Rapid COVID Ag Negative QC Media Lot # [id number] Lot# Expiration Date 63,026 Swab 07/04/2024 11:3 5 AM EDT Result [facility] Ana María Bryan MD POINT OF CARE TEST ENTER /EDIT ORDERABLES Final Result * POCT Rapid Influenza B OSOM (07/04/2024 11:35 AM EDT) [facility] Rapid Influenza B Ag Negative Negative, Indeterminate QC Media Lot # [id number] Lot# Expiration Date 53,125 Swab 07/04/2024 11:3 5 AM EDT Result [facility] Ana María Bryan MD POINT OF CARE TEST ENTER /EDIT ORDERABLES Final Result * POCT Rapid Influenza A OSOM (07/04/2024 11:35 AM EDT) [facility] Rapid Influenza A Ag Negative Negative, Indeterminate QC Media Lot # [id number] Lot# Expiration Date 53,125 Swab Nasopharyngeal structure / Unknown 07/04/2024 11:35 AM EDT Result [facility] Ana María Bryan MD POINT OF [...] Total, Immunoassay (07/02/2024 9:45 AM EDT) Pathologist [facility] Vitamin D 25-OH Total 44.8 >30 ng/mL [facility] Comment: Health Based Reference Values*< 20 ??ng/mL ??Rcxqycyol56-88 ng/mL ??Insufficient> 30 ??ng/mL ??Sufficient*Carlos Manuel BERRY. [...] Provider LAB BLOOD ORDERAB LES Final Result [facility] [address] [place] [phone] * (ABNORMAL) PTH, Intact Without Calcium (07/02/2024 9:45 AM EDT) Parathyroid Hormone, Intact 176.6(H) 8.7 - 77.1 pg/mL [facility] 07/02/2024 9:45 AM EDT 07/02/2024 9:45 AM EDT Generic External Data Provider LAB BLOOD ORDERAB LES Final Result Performing Organization Address [facility] [[email or web address]] Co de Phone Number [facility] [address] [place] [phone] * (ABNORMAL) Hemoglobin A1c (07/02/2024 9:45 AM EDT) Hemoglobin A1c 7.8(H) <6.0 % [facility] Comment:Hemoglobin A1C Refer ence Range Adults: 4.8 - 6.0 % Non diabetic: < 6.0 % Goal: < 7.0 %Additional Action Suggested: > 8.0 %Note: Hemoglobin A1c results are invalid for patients with abnormal amounts of HbF. Blood transfusions may impact the HbA1c concentration in the patient sample. Estimated Average Glucose 177 mg/dL [facility] Comment:eAG = Estimated ave rage glucose which is %A1C expressed asaverage glucose, using the formula of the B4O-OagkoenItnkilz Glucose study (ADAG), Diabetes Care, Vol.31,#8,Oct. 2007 07/02/2024 9:45 AM EDT 07/02/2024 9:45 AM EDT Generic External Data Provider LAB BLOOD ORDERAB LES Final Result Performing Organization Address [facility] [[email or web address]] Co de Phone Number [facility] [address] [place] [address] [phone] * Albumin (07/02/2024 9:45 AM EDT) Albumin Level 4.0 3.5 - 5.0 g/dL [facility] 07/02/2024 9:45 AM EDT 07/02/2024 9:45 AM EDT us Generic External Data Provider LAB BLOOD ORDERAB LES Final Result Performing Organization Address [facility]/ZIP Co de Phone Number [facility] [address] [place] [phone] * (ABNORMAL) Basic Metabolic Panel (07/02/2024 9:45 AM EDT) Pathologist [facility] Sodium 140 135 - 145 mmol/L [facility] Potassium 4.1 3.3 - 5.1 mmol/L [facility] Chloride 106 96 - 108 mmol/L [facility] Carbon Dioxide 24 22 - 29 mmol/L [facility] Anion Gap 14 12 - 20 [facility] Urea Nitrogen (BUN) 33(H) 9 - 16 mg/dL [facility] Creatinine, Serum 0.99 0.5 - 1.4 mg/dL [facility] Estimated Glomerular Filt Rate 55 [facility] Comment:Chronic Kidney Disea se: Estimated GFR < 60 mL/min/1.34f7Pntoum Kidney Disease: Estimated GFR < 15 mL/min/1.73m2 Glucose 77 60 - 115 mg/dL [facility] Calcium 9.7 8.4 - 10.2 mg/dL [facility] 07/02/2024 9:45 AM EDT 07/02/2024 9:45 AM EDT us Generic External Data Provider LAB BLOOD ORDERAB LES Final Result Performing Organization Address [facility]/ZIP Co de Phone Number [facility] [address] [place] [phone] * Lipid Panel with Reflex to Direct LDL (01/01/2024 10:37 AM EDT) Triglycerides 97 <150 mg/dL [facility] Comment:Desirable Triglyceri de: less than 150 mg/dLBorderline High Triglyceride 150-199 mg/dLHigh Triglyceride: 200-499 mg/dLVery High Triglyceride: greater than or equal to 5OO mg/dL Cholesterol 138 <200 mg/dL [facility] Comment:Desirable Cholestero l: less than 200 mg/dLBorderline High Cholesterol: 200-239 mg/dLHigh Cholesterol: greater than 239 mg/dL LDL Cholesterol Calculated 61 <100 mg/dL [facility] Comment:Desirable LDL: less than 100 mg/dLNear Optimal/Above Optimal LDL: 110- 129 mg/dLBorderline High LDL: 130-159 mg/dLHigh LDL: 160-189 mg/dLVery High LDL: greater than or equal to 190 mg/dL HDL Cholesterol 58 >40 mg/dL [facility] Comment:Desirable HDL: great er than 40 mg/dL Note: This HDL assay may give artificially low results in patients with liver disease. Blood 01/01/2024 10:3 7 AM EDT 01/01/2024 11:26 AM EDT us Ana María Bryan MD LAB BLOOD ORDERABLES Fin al Result [facility] [address] [place] [phone] * Hm Colonoscopy (03/15/2022) Colonoscopy Normal Normal Ana María Bryan MD HEALTH MAINTENANCE Final Result from Last 3 Months or Most Recently Relevant to Health Maintenance Insurance [employer] Care Teams Service Inspector Relationship Specialty Start Date End Date Ana María Bryan MD [address] [place] [phone] PCP - General Family Medicine 03/26/18
--- OUTSIDE RECORDS SUMMARY | 2024-08-04 10:28 | XMS_ITS | Encounter Summary ---
Author Organization [employer] Address [address] [facility] [address] [place] [address] Care Team Providers Care Licensed Customs Broker Name Role Phone Ana María Bryan MD Primary Care Provider + Encounter Details Date Type Department Care Team (Late st Contact Info) Description 08/04/2024 Orders Only GENERIC EXTERNAL DATA [...] Description 10/03/2024 11:30 AM EDT Office Visit [facility]ICINE [address] [place] [address] Ana María Bryan MD [address] [place] [address] documented as of this encounter Procedures Procedure Name Priority Date/Time Associated Diagnosis Comments GLUCOSE, WHOLE BLOOD Routine 08/04/2024 10:15 AM EDT documented in this encounter Results * (ABNORMAL) Glucose, Whole Blood (08/04/2024 10:15 AM EDT) Glucose, Whole Blood 136(H) 60 - 115 mg/dL [facility] Comment:METER #: [id number] Testing performed in the Endocrinology Department [address] , [address], [facility]. 08/04/2024 10:1 5 AM EDT 08/04/2024 10:19 AM EDT us Generic External Data Provider LAB BLOOD ORDERAB LES Final Result [facility] [address] [place] [phone] [phone] documented in this encounter Visit Diagnoses Not on filedocumented in this encounter Additional Health Concerns Assessment Noted Time PHQ-9 Depression Total Score: 1 04/13/19 23 10:26 AM EST documented as of this encounter Care Teams Licensed Customs Broker Relationship Specialty Start Date End Date Ana María Bryan MD [address] [place] [phone] PCP - General Family Medicine 03/26/18 documented as of this encounter
--- OUTSIDE RECORDS SUMMARY | 2024-08-04 10:28 | XMS_ITS | Clinical Summary ---
Author Organization [facility] Address [address] [place] [phone] Phone Care Team Providers Care Medical Insurance Coding Specialist Name Role Phone Ana María Bryan [...] misc 1 Active Lancets (OneTouch Delica Plus [id number]) misc TEST BLOOD SUGAR 4 TIMES A [...] 1 tab in the evening 2 Active ferrous sulfate 325 (65 Fe) MG [...] 90 tablet 3 5 06/24/19 26 Active predniSONE 5 MG tablet Take 1 tablet (5 mg total) by mouth 1 (one) time each day 30 tablet 11 5 Active predniSONE 5 MG tablet Take 1 tablet (5 mg total) by mouth 1 (one) time each day 30 tablet 11 4 07/08/19 25 Discontinu ed(Reorder (does not appear on [...] mg daily. Jardiance held at admission. -Monitor ebkhm-rq-smug glucose with meals and nightly, and every [...] tolerated. FU in 3 months. F/u with features reporter Type 2 diabetes mellitus without complication Overview [...] Description 07/07/2024 Refill [facility] [address] [address] Sloane Bonner [place] 06/24/2024 Orders Only [facility] [address] [phone] Bruce Galarza MD Kidney transplant status; Renal disorder due to type 2 diabetes mellitus <Other diabetic kidney complication> (HCC) 06/23/2024 Refill [facility] [address] [address] Sloane Bon[place] Proteinuria, not otherwise specified 06/20/2024 10:45 AM EDT Office Visit [facility] [address] [address] Bruce Galarza MD Kidney transplant status (Primary [...] Office Visit [facility] [address] [phone] Bruce Galarza MD [address] [phone] Health Maintenance Due Date Last Done Comments Breast Cancer Screening 1950 Diabetes: Ophthalmology Exam 04/26/2020 Diabetes: Pedal Pulse Checked 04/26/2020 Diabetes: Sensory Foot Exam 04/26/2020 Diabetes: Visual Foot Exam 04/26/2020 Colonoscopy (Post-Transplant Patient) 05/11/2020 Mammogram (Post-Transplant Patient) 05/11/2020 Pelvic Exam (Post-Transplant Patient) 05/11/2020 Diabetes: Hemoglobin A1C 10/01/2024 04 025, 04/02/2024, 08/15/2023, Additional history exists Influenza [...] Urine >30(A) 0 - 5 /hpf [facility] RBC, Urine None seen 0 - 2 /hpf [facility] Squamous Epithelial, Urine 0-10 0 - 10 /hpf [facility] Casts None seen None seen /lpf [facility] Bacteria, Urine Many(A) None seen/Few [facility] 06/10/2024 10:4 5 AM EDT 06/10/2024 us Bruce Galarza MD LAB MICROBIOLOGY - GENERAL OR DERABLES Final Result [facility] [address] [place] [address] * Tacrolimus level (06/10/2024 10:45 AM EDT) Pathologist [facility] Tacrolimus Lvl 7.3 5.0 - 20.0 ng/mL [facility] Comment: Target steady state trough concentration for [...] HOSPITAL - 06/12/2024 7:05 PM EDT Test(s) 653012-[id number] (FK506), Blood was developed and its performance characteristics determined by [employer]. It has not been cleared or approved by the Food and Drug Administration. Bruce Galarza MD LAB BLOOD ORDERABLES Final Re sult [facility] [place] [address] * (ABNORMAL) Protein, Total, Random Urine w/Creatinine (Protein/Creat Ratio) (06/10/2024 10:45 AM EDT) Pathologist [facility] Creatinine, Ur 73.9 Not Estab. mg/dL [facility] Protein, Ur 17.6 Not Estab. mg/dL [facility] Urine Protein/Creati nine Ratio 238(H) 0 - 200 mg/g creat [facility] 06/10/2024 10:4 5 AM EDT 06/10/2024 Bruce Galarza MD LAB URINE ORDERABLES Final Re sult Performing Organization Address [facility] de Phone Number [employer] [facility] [address] [place] [address] * (ABNORMAL) Urine Albumin / Creatinine Ratio (06/10/2024 10:45 AM EDT) Pathologist [facility] Albumin, Urine 35.6 Not Estab. ug/mL [facility] Albumin/Creatin ine Ratio 48(H) 0 - 29 mg/g creat [facility] Comment: ? Normal: ?0 - ??29 ? Moderately increased: 30 - 300 ? Severely increased: ? >300 06/10/2024 10:4 5 AM EDT 06/10/2024 Bruce Galarza MD LAB URINE ORDERABLES Final Re sult Performing Organization Address [facility] de Phone Number [facility] [address] [place] [address] * (ABNORMAL) Urinalysis with microscopic (06/10/2024 10:45 AM EDT) Pathologist [facility] Specific [place], Urine 1.023 1.005 - 1.030 [facility] [phone] pH Urine 5.5 5.0 - 7.5 [facility] Color, Urine Yellow Yellow [facility] Appearance Urine Clear Clear [facility] [phone] WBC Esterase Urine 2+(A) Negative [facility] Protein, Ur Trace Negative/Tr mindy [facility] Glucose, Ur 3+(A) Negative [facility] Ketones, Urine Negative Negative [facility] Blood Urine Negative Negative [facility] Bilirubin Urine Negative Negative [facility] Urobilinogen Urine 0.2 0.2 - 1.0 mg/dL [facility] Nitrite, Urine Positive(A) Negative [facility] Microscopic Examination See below: [facility] Comment:Microscopic was rachell cated and was performed. 06/10/2024 10:4 5 AM EDT 06/10/2024 us Bruce Galarza MD LAB URINE ORDERABLES Final Re sult [facility] [address] [place] [address] * (ABNORMAL) Renal Function Panel (06/10/2024 10:45 AM EDT) Glucose 95 70 - 99 mg/dL [facility] BUN 40(H) 8 - 27 mg/dL [facility] Creatinine 1.20(H) 0.57 - 1.00 mg/dL [facility] eGFR CKD-EPI CR 2020 47(L) >59 mL/min/1.7 3 [facility] BUN/Creatinine Ratio 33(H) 12 - 28 [facility] Sodium 142 134 - 144 mmol/L [facility] Potassium 4.4 3.5 - 5.2 mmol/L [facility] Chloride 102 96 - 106 mmol/L [facility] Bicarbonate (CO2) 24 20 - 29 mmol/L [facility] Calcium 10.3 8.7 - 10.3 mg/dL [facility] Albumin 4.3 3.8 - 4.8 g/dL [facility] Phosphorus 4.2 3.0 - 4.3 mg/dL [facility] 06/10/2024 10:4 5 AM EDT 06/10/2024 us Bruce Galarza MD LAB BLOOD ORDERABLES Final Re sult [facility] [address] [place] [address] * (ABNORMAL) Hemoglobin A1c (05/31/2022 10:19 AM EST) Hemoglobin A1C 6.8(H) (4.0-5.6) % [facility] Comment: MONITORING: In known diabetic patients, hemoglobin A1c targets should be discussed with health care provider. DIAGNOSTIC USE: ??The [place] Diabetes Association (ADA) and the World Health [...] Supplement 1 Testing performed or reported by [facility], a Service of [facility], [address] [place] [id number] Carlene Prasad MD, Labor Relations Representative [facility]# [id number] Blood (Blood, Venous) 05/31/2022 10:19 AM EST 05/31/2022 10:20 AM EST us Olivia Trujillo MD LAB BLOOD ORDERABLES Final Resu lt [facility] from Last 3 Months or Most Recently Relevant to Health Maintenance Insurance Joyce Dual MCR/PAUL ([id number]) [place] Danger MCR/PAUL ([id number]) Care Teams Medical Insurance Coding Specialist Relationship Specialty Start Date End Date Ana María Bryan MD [address] [place] [address] PCP - General 04/05/20
--- OUTSIDE RECORDS SUMMARY | 2024-08-04 10:28 | XMS_ITS | Clinical Summary ---
Author Organization [facility] Address [address] [place] [address] Phone Care Team Providers Care Rrts Name Role Phone Ana María Bryan MD Primary Care Provider [phone] Medications ascorbic acid (VITAMIN C) 500 mg tablet Take 1 tablet (500 mg total) by mouth 1 (one) time each day in the morning. 4 Active melatonin 5 mg tablet Take 1 tablet (5 mg total) by mouth. 5 Active lisinopriL (PRINIVIL,ZEST RIL) 2.5 mg tablet Take 1 tablet (2.5 mg total) by mouth 1 (one) time each day. Active insulin lispro 100 unit/mL injection Inject 6 Units under the skin. Active Lantus Solostar U-100 Insulin 100 unit/mL (3 mL) injection pen INJECT 12 UNITS SUBCUTANEOUSLY EVERY EVENING 4 Active gabapentin (NEURONTIN) 100 mg capsule Take 1 capsule (100 mg total) by mouth. at bedtime Active fluticasone propionate (FLONASE) 50 mcg/actuation nasal spray Administer 1 spray into affected nostril(s). Active ferrous sulfate 325 mg (65 mg iron) EC tablet TAKE 1 TABLET BY MOUTH TWICE DAILY IN THE MORNING AND IN THE EVENING Active Jardiance 25 mg tablet Take 1 tablet (25 mg total) by mouth 1 (one) time each day in the morning. Active docusate sodium (COLACE) 100 mg capsule Take 1 capsule (100 mg total) by mouth 2 (two) times a day if needed. Active doxycycline hyclate (VIBRA-TABS) 100 mg tablet TAKE 1 TABLET BY MOUTH TWICE DAILY FOR 7 DAYS WITH A FULL GLASS OF WATER. Do not lie down for 30 minutes after taking. 4 Active diclofenac (VOLTAREN) 1 % topical gel APPLY 2 GRAM TOPICALLY TO AFFECTED AREA(S) (tacn) 4 TIMES A DAY IN THE MORNING, AT NOON, IN THE EVENING, AND AT BEDTIME FOR UP TO 10 DAYS 4 Active denosumab (Prolia) 60 mg/mL syringe syringe inject 1 milliliter by subcutaneous route every 6 months in the upper arm, upper thigh or abdomen Active Vitamin D3 25 mcg (1,000 unit) capsule Take 2 capsules (2,000 Units total) by mouth 1 (one) time each day in the morning. 5 Active cephalexin (KEFLEX) 500 mg capsule Take 1 capsule (500 mg total) by mouth 2 (two) times a day. for 7 days 4 Active OneTouch Ultra Test test strip 4 (four) times a day. 5 Active Active Problems Problem Noted Date Diagnosed Date COVID-19 12/04/2023 Postprandial abdominal pain in left upper quadra nt 11/06/2022 Diarrhea 10/23/2022 Epigastric pain 05/18/2022 Anemia 03/24/2022 Overview (07/21/2024): Last Assessment & Plan: Significantly improving with iron supplementation, doesn't seem to have recurrent GI bleeding Continue iron supplementation to complete 3 months (next month). Refer to GI to Dr. Cohen, information given to pt to fu with them. Deep vein thrombosis (DVT) o f brachial vein of right upper extremity ([facility] V24, CMS/[facility] V28) 03/24/2022 Overview (07/21/2024): On Eliquis 5mg bid. Patient sent to [...] has not taken Eliquis since yesterday morning Acute thoracic back pain 03/17/2022 Chronic kidney disease (CKD) stage G3a/A2, moderately decreased glomerular filtration rate (GFR) between 45-59 mL/min/1.73 square meter and albuminuria creatinine ratio bet* ([facility] V24, [facility] V28) 03/17/2022 Chronic kidney disease (CKD) stage G3a/A2, moderately decreased glomerular filtration rate (GFR) between 45-59 mL/min/1.73 square meter and albuminuria creatinine ratio bet* ([facility] V24, [facility] V28) 03/17/2022 Overview (07/21/2024): Last Assessment & Plan: History of renal transplant Creatinine is at baseline, avoid nephrotoxic medications, BUN is slightly elevated Continue patient's tacrolimus and prednisone Mycophenolate was not listed last admission but patient and her family tell me she is taking this twice a day, this has been added to her med list and ordered Stage 3 chronic kidney disease ([facility] V24, [facility] V28) 03/17/2022 Overview (07/21/2024): Last Assessment & Plan: History of renal [...] meds for renal transplant. Foot pain 03/17/2022 Gastrointestinal hemorrhage 03/17/2022 Diabetes mellitus ([facility] V24, [facility] V28) Overview (07/21/2024): Last Assessment & Plan: Patient normally takes a home regimen with combination oral agents and insulin. At home uses Humalog 3 times daily, 6 units before meals. Also takes Lantus at bedtime 8 units. In addition she takes Jardiance 25 mg daily. Jardiance held at admission. -Monitor nflyw-ov-zhcz glucose with meals and nightly, and every [...] tolerated. FU in 3 months. F/u with director web Type 2 diabetes mellitus wit hout complication ([facility] V24, [facility] V28) 03/13/2022 Overview (07/21/2024): Last Assessment & Plan: Continue insulin, will be n.p.o. 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 ([facility] V24, [facility] V28) 05/11/2020 Essential hypertension 05/11/2020 History of kidney transplant 05/11/2020 Overview (07/21/2024): Last Assessment & Plan: Patient takes tacrolimus [...] to GI when to restart Cough 04/29/2018 Backache 07/31/2017 Herpes labialis 03/09/2017 Herpesvirus infection 02/08/2017 Resolved Problems Problem Noted Date Diagnosed Date Resolved Date Essential hypertension 05/11/202007/21 Overview (07/21/2024): Last Assessment & Plan: Patient relatively hypotensive, with soft blood pressures prior to endoscopy. -Antihypertensives held including carvedilol, amlodipine and lisinopril. -Lisinopril also held due to hyperkalemia. -Monitor vital signs closely per unit protocol Encounters Date Type Department Care Team Description 05/20/2024 10:30 AM EST Office Visit [facility] - [place] [address] [address] Chris Urrutia DPM Controlled type 2 diabetes with neuropathy ([facility] V24, CMS/[facility] V28) (Primary Dx); Arthritis of both feet; [...] Insurance [employer] Care Teams Rrts Relationship Specialty Start Date End Date Ana María Bryan MD [address] [place] [phone] PCP - General Internal Medicine 02/06/24
--- OUTSIDE RECORDS SUMMARY | 2024-08-04 10:28 | XMS_ITS | Encounter Summary ---
Author Organization [employer] Address [address] [facility] 7t [place] [address] Care Team Providers Care Candy Feeder Name Role Phone Ana María Bryan MD Primary Care Provider + Reason for Visit * Reason Comments Med Refill Encounter Details Date Type Department Care Team (Late st Contact Info) Description 11/21/2022 Refill [facility] [address] [place] [address] Ana María Bryan MD [address] [place] [address] Type 2 diabetes mellitus with stage 3 [...] 11:30 AM EDT Office Visit [facility] [address] [place] [address] Ana María Bryan MD [address] [place] [address] documented as of this encounter Visit Diagnoses Diagnosis Type 2 diabetes mellitus with stage 3 chronic kidney disease, with long-term current use of insulin, unspecified whether stage 3a or 3b CKD (CMS/HCC) documented in this encounter Additional Health Concerns Assessment Noted Time PHQ-9 Depression Total Score: 1 04/13/19 23 10:26 AM EST documented as of this encounter Care Teams Candy Feeder Relationship Specialty Start Date End Date Ana María Bryan MD [address] [place] [phone] PCP - General Family Medicine 03/26/18 documented as of this encounter
--- OUTSIDE RECORDS SUMMARY | 2024-08-04 10:28 | XMS_ITS | Encounter Summary ---
Author Organization [employer] Address [address] [facility] 7t [place] [address] Care Team Providers Care Media Theorist And Author Of Name Role Phone Ana María Bryan MD Primary Care Provider + Encounter Details Date Type Department Care Team (Late st Contact Info) Description 03/17/2022 Orders Only [facility] [address] [place] [phone] Dary Nuno MD [address] [place] [phone] Acute deep vein thrombosis (DVT) of proximal [...] Description 10/03/2024 11:30 AM EDT Office Visit [facility] [address] [place], [place] [phone] Ana María Bryan MD [address] [place] [address] documented as of this encounter Visit Diagnoses Diagnosis Acute deep vein thrombosis (DVT) of proximal vein of right lower extremity (CMS/HCC)- Primary documented in this encounter Care Teams Media Theorist And Author Of Relationship Specialty Start Date End Date Ana María Bryan MD [address] [place] [phone] PCP - General Family Medicine 03/26/18 documented as of this encounter
--- OUTSIDE RECORDS SUMMARY | 2024-08-04 10:28 | XMS_ITS | Encounter Summary ---
Author Organization [email or web address] Address [address] [facility] 7t [place] [address] Care Team Providers Care Driver Recruiter Name Role Phone Ana María Bryan MD Primary Care Provider + Encounter Details Date Type Department Care Team (Latest Contact Info) Description 05/25/2021 Abstract [facility] Dental, Provider, DDS Social History [...] EDT Office Visit [facility] [address] [place] [address] Ana María Bryan MD [address] [place] [address] documented as of this encounter Visit Diagnoses Not on filedocumented in this encounter Care Teams Driver Recruiter Relationship Specialty Start Date End Date Ana María Bryan MD [address] [place] [address] PCP - General Family Medicine 03/26/18 documented as of this encounter
== END 2024-08-04 10:38 | disposition home or self-care (01) ==
PROVIDERS: PCP Internal Medicine; Visit Provider Physician Assistant
DX: E11.21 Type 2 diabetes mellitus with diabetic nephropathy (principal); I10 Essential (primary) hypertension; E78.5 Hyperlipidemia, unspecified

== ENCOUNTER → 2024-08-04 10:02 | Outpatient (BNVA) | payer OTHER, SELFPAY | PROVIDERS: PCP Internal Medicine; Visit Provider Physician Assistant | DX: E11.21 Type 2 diabetes mellitus with diabetic nephropathy (principal); I10 Essential (primary) hypertension; E78.5 Hyperlipidemia, unspecified; Z79.01 Long term (current) use of anticoagulants; Z94.0 Kidney transplant status | CPT/HCPCS: 82947; 99212 ==

== ENCOUNTER 2024-08-15 16:39 | Outpatient (REF) | payer OTHER, SELFPAY ==
--- OUTSIDE RECORDS SUMMARY | 2024-08-15 16:41 | XMS_ITS | Encounter Summary ---
Author Organization [employer] Address [address] [facility] 7t [place] [address] Care Team Providers Care Circulating Nurse Name Role Phone Ana María Brayn MD Primary Care Provider + Reason for Visit * Reason Comments Med Refill Encounter Details Date Type Department Care Team ([facility] st Contact Info) Description 10/29/2023 Refill [facility] & [facility]S [address] [place] [address] Ana María Bryan MD [address] [place] [address] Primary insomnia Social History Tobacco Use Types [...] Description 10/03/2024 11:30 AM EDT Office Visit [facility] [address] [place] [address] Ana María Bryan MD [address] [place] [address] documented as of this encounter Visit Diagnoses Diagnosis Primary insomnia Persistent disorder of initiating or maintaining sleep documented in this encounter Additional Health Concerns Assessment Noted Time PHQ-9 Depression Total Score: 1 04/13/19 23 10:26 AM EST documented as of this encounter Care Teams Circulating Nurse Relationship Specialty Start Date End Date Ana María Bryan MD [address] [place] [phone] PCP - General Family Medicine 03/26/18 documented as of this encounter
== END 2024-08-15 16:40 | disposition home or self-care (01) ==
LOC: HO.HHCLNP 16:39
PROVIDERS: Visit Provider Nurse Practitioner
DX: R82.90 Unspecified abnormal findings in urine (principal)
CPT/HCPCS: 87086; 87088; 87186

== ENCOUNTER 2024-08-28 10:16 | Outpatient (REF) | payer OTHER, SELFPAY ==
--- NOTE | ~2024-08-28 | MM_ITS ---
EXAMINATION: MM SCREENING DIGITAL BREAST TOMOSYNTHESIS, BILATERAL CLINICAL INFORMATION: Screening. Asymptomatic. COMPARISON: Mammography: Comparison is made with available priors TECHNIQUE: Digital breast mammography with tomosynthesis is performed in both the craniocaudal and mediolateral oblique views along with computer-aided detection (CAD). FINDINGS: There are scattered areas of fibroglandular density (ACR BI-RADS breast composition Category b). There are no significant masses, abnormal calcifications, or other abnormalities. MM/MM tomosynthesis screening BI IMPRESSION: No mammographic evidence of malignancy. ASSESSMENT: BI-RADS BI-RADS 1 - Negative RECOMMENDATION: Routine annual mammography screening. 1 year F/U This examination should not preclude the clinical evaluation of a suspicious palpable abnormality. This patient's information was entered into a reminder system with a target due date for their next mammogram. Electronically signed by: Toshia Cheng DO 08/31/2024 08:09 PM EDDarek
--- NOTE | ~2024-08-28 | MM_ITS ---
EXAMINATION: DXA BONE DENSITY AXIAL HISTORY: M81.0 - Age-related osteoporosis without current pathological fracture TECHNIQUE: [employer] Dual energy absorptiometry (DEXA) of the lumbar spine, total left hip, and femoral neck was performed. COMPARISON: Comparison is made with the prior examination dated 12/01/2021. FINDINGS: The bone mineral density of the lumbar spine is 0.732, corresponding to a T-score of -3.9, and a Z-score of -1.6. This is indicative of osteoporosis. This represents a BMD change of -10.6% compared to the prior exam. This is statistically significant. The bone mineral density of the left total hip is 0.666, corresponding to a T-score of -2.7, and a Z-score of -0.6. This is indicative of osteoporosis. This represents a BMD change of 12.7% compared to the prior exam. This is statistically significant. The bone mineral density of the left femoral neck is 0.652, corresponding to a T-score of -2.8, and a Z-score of -0.5. This is indicative of osteoporosis. This represents a BMD change of 5.3% compared to the prior exam. FRACTURE RISK: The FRAX index suggests a ten year probability of major osteoporotic fracture of 25.2%, and of hip fracture 9.7%. MM/XR DEXA axial skeleton IMPRESSION: Based on bone mineral density, and according to World Health Organization (WHO) criteria, the diagnosis is consistent with osteoporosis. All bone density values are in grams per centimeter squared (g/cm2). Statistically, 68% of repeat scans fall within 1 SD (+/- 0.010 g/cm2 for AP spine L1-L4) and 1 SD (+/- 0.012 g/cm2 for femur total) FRAX is a trademark of the [employer] Metabolic Bone Disease, a World Health Organization (WHO) Collaborating Center. Electronically signed by: Julius Wild MD 08/28/2024 11:15 AM EDT
--- OUTSIDE RECORDS SUMMARY | 2024-08-28 11:57 | XMS_ITS | Encounter Summary ---
Author Organization [employer] Address [address] [facility] 7t [place] [address] Care Team Providers Care Supervisor Cigar Making Hand Name Role Phone Ana María Bryan MD Primary Care Provider + Reason for Visit * Reason Comments Med Refill Encounter Details Date Type Department Care Team ([facility] st Contact Info) Description 10/29/2023 Refill [facility] MED & PEDS [address] [place] [address] Ana María Bryan MD [address] [place] [address] Primary insomnia Social History Tobacco Use Types [...] Care Team (Late st Contact Info) Description 08/28/2024 1:00 PM EDT Office Visit [facility] [address] [place] [phone] Arrived 10/03/2024 11:30 AM EDT Office Visit [facility] [address] [place] [address] Ana María Bryan MD [address] [place] [address] documented as of this encounter Visit Diagnoses Diagnosis Primary insomnia Persistent disorder of initiating or maintaining sleep documented in this encounter Additional Health Concerns Assessment Noted Time PHQ-9 Depression Total Score: 1 04/13/19 23 10:26 AM EST documented as of this encounter Care Teams Supervisor Cigar Making Hand Relationship Specialty Start Date End Date Ana María Bryan MD [address] [place] [phone] PCP - General Family Medicine 03/26/18 documented as of this encounter
== END 2024-08-28 10:17 | disposition home or self-care (01) ==
LOC: HO.MAMMO 10:16
PROVIDERS: PCP Internal Medicine; Visit Provider Internal Medicine Endocrinology, Diabetes & Metabolism
DX: Z12.31 Encounter for screening mammogram for malignant neoplasm of breast (principal); M81.0 Age-related osteoporosis without current pathological fracture; L03.039 Cellulitis of unspecified toe
CPT/HCPCS: 77063; 77067; 77080; 87070; 87077; 87186; 87205

== ENCOUNTER → 2024-08-28 10:30 | Outpatient (BNV) | payer OTHER, SELFPAY | PROVIDERS: PCP Internal Medicine; Visit Provider Radiology Diagnostic Radiology | DX: E28.39 Other primary ovarian failure (principal) | CPT/HCPCS: 77080 ==

== ENCOUNTER 2024-08-28 16:31 | Outpatient (REF) | payer OTHER, SELFPAY | END 2024-08-28 16:32 | disposition home or self-care (01) | LOC: HO.HHCLNP 16:31 | PROVIDERS: Visit Provider Family Medicine | DX: Z13.89 Encounter for screening for other disorder (principal) | CPT/HCPCS: 87070; 87205 ==

== ENCOUNTER 2024-09-23 11:53 | Outpatient (REF) | payer OTHER, SELFPAY ==
--- NOTE | ~2024-09-23 | XR_ITS ---
EXAMINATION: XR CHEST CLINICAL INFORMATION: perisitent cough, inmunocompromised patient COMPARISON: July 06, 2024 TECHNIQUE: 2 views of the chest were obtained. 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 Vascular calcifications present in the aortic arch. Pulmonary nodules and central calcifications are present, left greater than right. Somewhat linear basilar densities are present subsegmental atelectasis. There is a groundglass density in the mid right lung zone. There is trace fluid in the right major fissure and blunting of costophrenic angles on lateral x-ray. XR/XR chest 2V IMPRESSION: Possible right upper lobe lobe pneumonia and trace pleural effusions. Chronic posterior right sixth-ninth rib fractures. Electronically signed by: Les Mitchell MD 09/23/2024 12:31 PM EDT
--- OUTSIDE RECORDS SUMMARY | 2024-09-23 13:03 | XMS_ITS | Clinical Summary ---
Author Organization [facility] Address [address] [place] [phone] Phone Care Team Providers Care Video Technician Name Role Phone Ana María Bryan MD Primary Care Provider [phone] Allergies Active Allergy Reactions Criticality Noted Date [...] misc 10/19/2020 Active Lancets (OneTouch Delica Plus [id number]) misc TEST BLOOD SUGAR 4 TIMES A [...] 1 tab in the evening 03/17/2022 Active ferrous sulfate 325 (65 Fe) MG [...] 150 capsule 11 03/11/2024 03/11/20 25 Active Empagliflozin (Jardiance) 25 MG tabletIndicatio ns:Proteinuria, not otherwise specified Take 25 mg by mouth 1 (one) time each day in the morning 90 tablet 3 06/23/2024 06/24/19 26 Active predniSONE 5 MG tablet Take 1 tablet (5 mg total) by mouth 1 (one) time each day 30 tablet 11 07/09/2024 Active Active Problems Problem Noted Date Diagnosed [...] mg daily. Jardiance held at admission. -Monitor [id number] glucose with meals and nightly, and every [...] tolerated. FU in 3 months. F/u with steam setter Type 2 diabetes mellitus without complication Overview [...] Description 07/07/2024 Refill [facility] [address] [phone] Sloane Bonner [place] 06/24/2024 Orders Only [facility] [address] [phone] Bruce Galarza MD Kidney transplant status; Renal [...] Care Team (Late st Contact Info) Description 10/09/2024 10:30 AM EDT Office Visit [facility] [address] [phone] Bruce Galarza MD [address] [phone] Health Maintenance Due Date Last Done Comments Breast Cancer Screening 1950 Diabetes: Ophthalmology Exam 04/26/2020 Diabetes: Pedal Pulse Checked 04/26/2020 Diabetes: Sensory Foot Exam 04/26/2020 Diabetes: Visual Foot Exam 04/26/2020 Colonoscopy (Post-Transplant Patient) 05/11/2020 Mammogram (Post-Transplant Patient) 05/11/2020 Pelvic Exam (Post-Transplant Patient) 05/11/2020 Diabetes: Hemoglobin A1C 10/01/2024 025, 04/02/2024, 08/15/2023, Additional history exists Influenza [...] Procedure Name Priority Date/Time Associated Diagnosis Comments HEMOGLOBIN A1C Routine 05/31/2022 10:19 AM EST 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) Iron deficiency anemia, not otherwise specified from Last 3 Months or Most Recently Relevant to Health Maintenance Results * (ABNORMAL) Hemoglobin A1c (05/31/2022 10:19 AM EST) Hemoglobin A1C 6.8(H) (4.0-5.6) % [facility] Comment: MONITORING: In known diabetic patients, hemoglobin A1c targets should be discussed with health care provider. DIAGNOSTIC USE: The [place] Diabetes Association (ADA) and the World Health [...] Supplement 1 Testing performed or reported by [facility], a Service of [facility], [address] [place] [id number] Carlene Prasad MD, Precision Instrument And Tool Maker [facility]# [id number] Blood specimen (specimen) Venous blood / Unknown 05/31/2022 10:19 AM EST 05/31/2022 10:20 AM EST us Olivia Trujillo MD LAB BLOOD ORDERABLES Final Resu lt [facility] from Last 3 Months or Most Recently Relevant to Health Maintenance Insurance [employer] [facility] ([id number]) [employer] [facility] ([id number]) Care Teams Video Technician Relationship Specialty Start Date End Date Ana María Bryan MD [address] [place] [phone] PCP - General 04/05/20
--- OUTSIDE RECORDS SUMMARY | 2024-09-23 13:03 | XMS_ITS | Clinical Summary ---
Author Organization [facility] Address [address] [place] [address] Care Team Providers Care Funeral Car Chauffeur Name Role Phone Pcp, No Primary Care [...] patient's age to complete this topic Insurance [facility] MEDICARE MEDICAID OUT OF STATE [facility] Care Teams Funeral Car Chauffeur Relationship Specialty Start Date End Date Pcp, No [address] [place] [address] PCP - General 12/17/19
--- OUTSIDE RECORDS SUMMARY | 2024-09-23 13:03 | XMS_ITS ---
Author Name [facility] Organization Unknown Problems Problem Status Onset Date Problem Type Date of Resoluti on Source Complication of transplanted kidney, unspecified complication active EncounterDiagnosisAct CCT Encounters Encounter Type Encounter Reason Primary Diagnosis Location Date Ambulatory Unspecified complication of kidney transplant [facility] 03/06/2022 Ambulatory Chronic kidney disease, stage 2 (mild) [facility] 07/27/2021 Care Team Organization Name Specialty Phone Email Start Date End Da te [facility] PCP,No Primary Care 07/27/2021 [facility] NO PCP Primary Care 07/18/2021 02/21/2022
--- OUTSIDE RECORDS SUMMARY | 2024-09-23 13:04 | XMS_ITS | Clinical Summary ---
Author Organization [facility] Address [address] [place] [address] Phone Care Team Providers Care Miller Kiln Dried Salt Name Role Phone Ana María Bryan MD Primary Care Provider [phone] Medications ascorbic acid (VITAMIN C) 500 mg [...] f brachial vein of right upper extremity ([facility] V24, [facility] V28) 03/24/2022 Overview (07/21/2024): On Eliquis 5mg [...] square meter and albuminuria creatinine ratio bet* ([facility] [place]24, [facility] V28) 03/17/2022 Chronic kidney disease (CKD) stage G3a/A2, moderately decreased glomerular filtration rate (GFR) between 45-59 mL/min/1.73 square meter and albuminuria creatinine ratio bet* ([facility] V24, [facility] V28) 03/17/2022 Overview (07/21/2024): Last Assessment & Plan: History of renal transplant Creatinine is at baseline, avoid nephrotoxic medications, BUN is slightly elevated Continue patient's tacrolimus and prednisone Mycophenolate was not listed last admission but patient and her family tell me she is taking this twice a day, this has been added to her med list and ordered Stage 3 chronic kidney disease ([facility] V24, [facility] V28) 03/17/2022 Overview (07/21/2024): Last Assessment & [...] pain 03/17/2022 Gastrointestinal hemorrhage 03/17/2022 Diabetes mellitus ([facility] V24, [facility] V28) Overview (07/21/2024): Last Assessment & Plan: Patient normally takes a home regimen with combination oral agents and insulin. At home uses Humalog 3 times daily, 6 units before meals. Also takes Lantus at bedtime 8 units. In addition she takes Jardiance 25 mg daily. Jardiance held at admission. -Monitor [id number]-af-[id number] glucose with meals and nightly, and every [...] tolerated. FU in 3 months. F/u with chemistry account manager Type 2 diabetes mellitus wit hout complication ([facility] V24, [facility] V28) 03/13/2022 Overview (07/21/2024): Last Assessment & Plan: Continue insulin, will be n.p.o. 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 ([facility] V24, [facility] V28) 05/11/2020 Essential hypertension 05/11/2020 History of kidney transplant 05/11/2020 Overview (07/21/2024): Last Assessment & Plan: Patient takes tacrolimus and mycophenolate, confirm these doses with me and these meds will continue She also states that she was put on Plavix at the time of her transplant, she states she has never had an ME/stents or stroke and has never had any [...] -Monitor vital signs closely per unit protocol Social History Tobacco Use Types Packs/Day Years [...] 19+ 3-dose series) 05/02/2022 04/04/2022 COVID-19 Vaccine (2023- season) 2023 12/29/2022, 01/03/2022, 07/07/2021, Additional history [...] Test (HGBA1C) 09/30/2024 04/02/2024, 05/31/2022 Influenza Vaccine (#1) 2024 , 12/23/2021, 01/28/2021, Additional history exists Diabetes: Annual [...] patient's age to complete this topic Insurance [address] [place] [address] [facility] MEDICARE [employer]AGE Care Teams Miller Kiln Dried Salt Relationship Specialty Start Date End Date Ana María Bryan MD [address] [place] [phone] PCP - General Internal Medicine 02/06/24
== END 2024-09-23 11:54 | disposition home or self-care (01) ==
LOC: HO.HHCX 11:53
PROVIDERS: Visit Provider Internal Medicine
DX: R05.3 Chronic cough (principal)
CPT/HCPCS: 71046

== ENCOUNTER → 2024-09-23 11:53 | Outpatient (BNV) | payer OTHER, SELFPAY | PROVIDERS: Visit Provider Radiology Diagnostic Radiology | DX: J98.11 Atelectasis (principal) | CPT/HCPCS: 71046 ==

== ENCOUNTER 2024-10-29 10:33 | Outpatient (REF) | payer OTHER, SELFPAY ==
[2024-10-29 12:22] LABS: Albumin Level 4.0 g/dL (3.5-5.0); Calcium 9.3 mg/dL (8.4-10.2); Parathyroid Hormone Intact 119.3 pg/mL (8.7-77.1)
== END 2024-10-29 10:34 | disposition home or self-care (01) ==
LOC: HO.LAB 10:33
PROVIDERS: PCP Internal Medicine; Visit Provider Internal Medicine Endocrinology, Diabetes & Metabolism
DX: M81.0 Age-related osteoporosis without current pathological fracture (principal)
CPT/HCPCS: 36415; 82040; 82306; 82310; 83970

== ENCOUNTER 2024-10-31 12:03 | Outpatient (REF) | payer OTHER, SELFPAY ==
--- OUTSIDE RECORDS SUMMARY | 2024-10-31 12:05 | XMS_ITS | Clinical Summary ---
Author Organization [facility] Address [address] [place] [address] Care Team Providers Care Canal Superintendent Name Role Phone Pcp, No Primary Care [...] patient's age to complete this topic Insurance [facility] MEDICARE MEDICAID OUT OF STATE [facility] Care Teams Canal Superintendent Relationship Specialty Start Date End Date Pcp, No [address] [place] [address] PCP - General 12/17/19
--- OUTSIDE RECORDS SUMMARY | 2024-10-31 12:05 | XMS_ITS | Clinical Summary ---
Author Organization [facility] Address [address] [place] [phone] Phone Care Team Providers Care Ethylene Plant Helper Name Role Phone Ana María Bryan MD Primary Care Provider Allergies Active Allergy Reactions Criticality Noted Date Comments Diphenhydramine Other (see comments) 05/11/2020 Medications atorvastatin (LIPITOR) 80 MG tablet Take 80 mg by mouth at bed time 04/13/19 21 Active HumuLIN 70/30 KWIKPEN (70-30) 100 UNIT/ML injection Inject 5 units 04/26/19 21 Active Melatonin 5 MG tablet Take 1 tablet by mouth at bed time 04/13/19 21 Active pantoprazole (PROTONIX) 40 MG EC tablet Take 1 tablet by mouth 1 (one) time each day Active OneTouch Ultra test strip TEST BLOOD SUGAR FIVE TIMES DAILY 07/29/19 21 Active UltiGuard SafePack Pen Needle 32G X 4 MM misc 10/20/19 21 Active Lancets (OneTouch Delica Plus [id number]) misc TEST BLOOD SUGAR 4 TIMES A DAY 08/26/19 21 Active Vitamin D High Potency 25 MCG (1000 UT) capsule 2 capsules a day 01/15/20 21 Active Acetaminophen Extra Strength 500 MG tablet TAKE 1 TO 2 TABLETS BY MOUTH EVERY MORNING THEN TAKE 1 TABLET BY MOUTH EVERY 8 HOURS NEEDED FOR PAIN OR FOR FEVER 08/27/19 22 Active Ascorbic Acid (vitamin C) 500 MG tablet Take 500 mg by mouth 06/28/19 23 Active fluticasone (FLONASE) 50 MCG/ACT nasal spray USE 1-2 SPRAYS IN EACH NOSTRIL EVERY DAY NEEDED 02/14/20 23 Active Docusate Sodium (DSS) 100 MG capsule Take 1 capsule by mouth 2 (two) times a day if needed 02/25/20 22 Active gabapentin (NEURONTIN) 100 MG capsule Take 1 capsule by mouth at bed time 06/23/19 18 Active traZODone (DESYREL) 100 MG tablet 03/12/20 23 Active apixaban (ELIQUIS) 5 MG tablet Take 5 mg by mouth 1 (one) time 1 tab in the morning 1 tab in the evening 03/17/20 Active amLODIPine (Norvasc) 2.5 MG tablet Take 1 tablet (2.5 mg total) by mouth at bed time 30 tablet 11 02/28/20 24 Active tacrolimus (PROGRAF) 1 MG capsuleIndicat ions:Kidney replaced by transplant Take 3 capsules (3 mg total) by mouth 1 (one) time each day in the morning AND 2 capsules (2 mg total) 1 (one) time each day in the evening. 150 capsule 03/11/20 24 Active predniSONE 5 MG tablet Take 1 tablet (5 mg total) by mouth 1 (one) time each day 30 tablet 11 07/10/19 25 Active ferrous sulfate 325 (65 Fe) MG EC tabletIndicati ons:Iron deficiency anemia, not otherwise specified TAKE 1 TABLET BY MOUTH TWICE DAILY IN THE MORNING AND IN THE EVENING 180 tablet 3 10/01/19 25 Active lisinopril 5 MG tablet Take 1 tablet (5 mg total) by mouth 1 (one) time each day 90 tablet 10/10/19 25 025 Active mycophenolate (MYFORTIC) 180 MG EC tablet TAKE 1 TABLET BY MOUTH TWICE DAILY IN THE MORNING AND IN THE EVENING 60 tablet 11 10/31/19 25 Active mycophenolate (MYFORTIC) 180 MG EC tablet Take 1 tablet (180 mg total) by mouth every morning and evening 60 tablet 11 10/22/19 24 025 Discontinued lisinopril 5 MG tablet Take 5 mg by mouth 1 (one) time each day 025 Discontinued(Re order (does not appear on AVS)) Empagliflozin (Jardiance) 25 MG tabletIndicati ons:Proteinuri a, not otherwise specified Take 25 mg by mouth 1 (one) time each day in the morning 90 tablet 3 06/24/19 25 025 Discontinued(Si de effects) Active Problems Problem Noted Date Diagnosed Date Chronic iron deficiency anemia secondary to bloo d loss 03/24/2022 Overview (12/21/2023): Last Assessment & Plan: s/p ischemic colitis 02/2022 continue iron supplementation for now order labs and fu with me in 2 weeks. Chronic kidney disease stage 3 03/17/2022 Overview [...] mg daily. Jardiance held at admission. -Monitor [id number]-[id number] glucose with meals and nightly, and every [...] tolerated. FU in 3 months. F/u with money laundering investigator Type 2 diabetes mellitus without complication Overview (12/21/2023): Last Assessment & Plan: Continue insulin, will be n.p.o. after midnight we will give conservative dose along with sliding scale Renal failure syndrome 03/13/2022 Overview (12/21/2023): Last Assessment & Plan: History of transplant, well-functioning transplant in the right lower quadrant. Immunosuppressants continued, steroids continued. Essential hypertension 05/11/2020 Kidney transplant status 05/11/2020 Renal disorder due to type 2 diabetes mellitus 0 05/11/2020 Resolved Problems Problem Noted Date Diagnosed Date Resolved Date Pyuria 03/14/2023 10/08/2024 Gastrointestinal hemorrhage 04/19/2022 10/08/2024 Bacterial urinary infection 03/24/2022 10/08/2024 Overview (12/21/2023): Last Assessment & Plan: Resolved with Bactrim Reconsult prn Anemia 03/24/2022 10/08/2024 Overview (12/21/2023): Last Assessment & Plan: Significantly improving with iron supplementation, doesn't seem to have recurrent GI bleeding Continue iron supplementation to complete 3 months (next month). Refer to GI to Dr. Cohen, information given to pt to fu with them. Weight loss 09/19/2021 10/08/2024 Osteoporosis 07/18/2021 10/08/2024 Long-term drug therapy 04/20/202104/19 Hyperkalemia 05/11/2020 10/08/2024 Osteoporosis 05/11/2020 07/12/2021 Hypertensive heart and renal disease with (congestive) heart failure 05/11/2020 07/12/2021 Encounters Date Type Department Care Team Description 10/30/2024 Refill [facility] [address] [place] [address] Bruce Galarza MD 10/09/2024 10:30 AM EDT Office Visit [facility] [address] [place] [address] Bruce Galarza MD Kidney transplant status (Primary Dx) 09/28/2024 Refill [facility] [address] [place] [address] Bruce Galarza MD Iron deficiency anemia, not otherwise specified from Last 3 Months Immunizations Immunization Administration [...] Sign Reading Time Taken Comments Blood Pressure 191/82 10/09/2024 10:48 AM EDT Pulse 77 10/09/2024 10:48 AM EDT Temperature - - Respiratory Rate 16 12/13/2022 11:32 AM EDT Oxygen Saturation 97% 10/09/2024 10:48 AM EDT Inhaled Oxygen Concentration - - Weight 48 kg (105 lb 12.8 oz) 10/09/2024 10:48 A M EDT Height 144.8 cm (4' 9 ) 08/29/2022 10:15 AM EDT Body Mass Index 22.89 08/29/2022 10:15 AM EDT Plan of Treatment Upcoming Encounters Date Type Department Care Team (Late st Contact Info) Description 01/09/2025 11:30 AM EDT Office Visit [facility] [address] [phone] Bruce Galarza MD [address] [phone] Health Maintenance Due Date Last Done Comments Breast Cancer Screening 1950 Diabetes: Ophthalmology Exam 04/26/2020 Diabetes: Pedal Pulse Checked 04/26/2020 Diabetes: Sensory Foot Exam 04/26/2020 Diabetes: Visual Foot Exam 04/26/2020 Colonoscopy (Post-Transplant Patient) 05/11/2020 Mammogram (Post-Transplant Patient) 05/11/2020 Pelvic Exam (Post-Transplant Patient) 05/11/2020 Influenza Vaccine (#1) 2024 9, 02/23/2018, 12/21/2017, Additional history exists Diabetes: Hemoglobin A1C 01/03/20252 025, 07/02/2024, 04/02/2024, Additional history exists Pneumococcal Vaccine: 50+ Years Completed 05/07/2018, 03/09/2017 Pneumococcal Vaccine: Peds (0 to 5 Years) and At-Risk Patients (6 to 49 Years) Discontinued 05/07/2018, 03/09/2017 Hepatitis B Vaccine Aged Out 04/04/2022 No longe r eligible based on patient's age to complete this topic Procedures Procedure Name Priority Date/Time Associated Diagnosis Comments URINE CULTURE Routine 09/30/2024 10:25 AM EDT RENAL FUNCTION PANEL Routine 09/30/2024 10:25 AM EDT URINALYSIS WITH MICROSCOPIC Routine 09/30/2024 10:25 AM EDT RESULT Routine 09/30/2024 10:25 AM EDT MICROSCOPIC EXAMINATION - DO NOT USE Routine 09/30/2024 10:25 AM EDT HEMOGLOBIN A1C Routine 05/31/2022 10:19 AM EST 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) Iron deficiency anemia, not otherwise specified from Last 3 Months or Most Recently Relevant to Health Maintenance Results * Result (09/30/2024 10:25 AM EDT) Result Comment [facility] Comment: Culture shows less than 10,000 colony forming units of bacteria per milliliter of urine. This colony count is not generally considered to be clinically significant. 09/30/2024 10:2 5 AM EDT 09/30/2024 Bruce Galarza MD LAB MICROBIOLOGY - GENERAL OR DERABLES Final Result [facility] [address], [address] [place] [phone] * (ABNORMAL) Microscopic Examination (09/30/2024 10:25 AM EDT) WBC, Urine 6-10(A) 0 - 5 /hpf [facility] RBC, Urine None seen 0 - 2 /hpf [facility] Squamous Epithelial, Urine >10(A) 0 - 10 /hpf [facility] Casts None seen None seen /lpf [facility] Bacteria, Urine None seen None seen/Few [facility] 09/30/2024 10:2 5 AM EDT 09/30/2024 Bruce Galarza MD LAB MICROBIOLOGY - GENERAL OR DERABLES Final Result [facility] [address] [place] [address] * (ABNORMAL) Urinalysis with microscopic (09/30/2024 10:25 AM EDT) Specific [place], Urine 1.018 1.005 - 1.030 [facility] pH Urine 5.5 5.0 - 7.5 [facility] Color, Urine Yellow Yellow [facility] Appearance Urine Clear Clear [facility] WBC Esterase Urine Trace(A) Negative [facility] Protein, Ur 1+(A) Negative/Tra ce [facility] Glucose, Ur Negative Negative [facility] [phone] Ketones, Urine Negative Negative [facility] Blood Urine Negative Negative [facility] Bilirubin Urine Negative Negative [facility] Urobilinogen Urine 0.2 0.2 - 1.0 mg/dL [facility] Nitrite, Urine Negative Negative [facility] Microscopic Examination See below: [facility] Comment:Microscopic was rachell cated and was performed. 09/30/2024 10:2 5 AM EDT 09/30/2024 Bruce Galarza MD LAB URINE ORDERABLES Final Re sult [facility] [address] [place] [address] * Urine Culture (09/30/2024 10:25 AM EDT) Culture Result, Urine Final report [facility] 09/30/2024 10:2 5 AM EDT 09/30/2024 Comment:UC us Bruce Galarza MD LAB URINE ORDERABLES Final Re sult [facility] [address], [address] [place] [address] * (ABNORMAL) Renal Function Panel (09/30/2024 10:25 AM EDT) Glucose 218(H) 70 - 99 mg/dL [facility] BUN 28(H) 8 - 27 mg/dL [facility] Creatinine 1.00 0.57 - 1.00 mg/dL [facility] eGFR CKD-EPI CR 2020 59(L) >59 mL/min/1.7 3 [facility] BUN/Creatinine Ratio 28 12 - 28 [facility] Sodium 139 134 - 144 mmol/L [facility] Potassium 4.6 3.5 - 5.2 mmol/L [facility] Chloride 98 96 - 106 mmol/L [facility] Bicarbonate (CO2) 22 20 - 29 mmol/L [facility] Calcium 10.7(H) 8.7 - 10.3 mg/dL [facility] Comment:Verified by repeat analysis Albumin 4.1 3.8 - 4.8 g/dL [facility] Phosphorus 3.8 3.0 - 4.3 mg/dL [facility] 09/30/2024 10:2 5 AM EDT 09/30/2024 Comment: Bruce Galarza MD LAB BLOOD ORDERABLES Final Re sult Performing Organization Address City/[facility]/ZIP Co de Phone Number [facility] Phillip [address] [place] [phone] * (ABNORMAL) Hemoglobin A1c (05/31/2022 10:19 AM EST) Hemoglobin A1C 6.8(H) (4.0-5.6) % [facility] Comment: MONITORING: In known diabetic patients, hemoglobin A1c targets should be discussed with health care provider. DIAGNOSTIC USE: The [place] Diabetes Association (ADA) and the World Health [...] Supplement 1 Testing performed or reported by [facility], a Service of [facility], [address] [place] [id number] Carlene Prasad MD, Vehicle Refinisher [facility]# [id number] Blood specimen (specimen) Venous blood / Unknown 05/31/2022 10:19 AM EST 05/31/2022 10:20 AM EST Olivia Trujillo MD LAB BLOOD ORDERABLES Final Resu lt [facility] from Last 3 Months or Most Recently Relevant to Health Maintenance Insurance [employer] ([id number]) [place] [employer] [facility]/[facility]UL ([id number]) Care Teams Ethylene Plant Helper Relationship Specialty Start Date End Date Ana María Bryan MD [address] [place] [phone] PCP - General 04/05/20
--- OUTSIDE RECORDS SUMMARY | 2024-10-31 12:05 | XMS_ITS | Encounter Summary ---
Author Organization [facility] Address [address] [facility] [address] [place] [phone] Phone Care Team Providers Care Compliance Professional Name Role Phone Ana María Bryan MD Primary Care Provider + Encounter Details Date Type Department Care Team (Late st Contact Info) Description 03/15/2022 Procedure Pass [facility] Endoscopy Admitting Dept Virtual Department [address] [place] [address] Social History Tobacco Use Types Packs/Day Years Used Date Smoking Tobacco: Never Smokeless Tobacco: Never Alcohol Use Standard Drinks/Week Comments Not Currently 0 (1 standard drink = 0.6 oz pur e alcohol) Comments Unknown Sex and Gender Information Value Date Recorded Sex Assigned at Female 05/30/2020 1:19 PM EST Legal Sex Female 12:56 PM EST Gender Identity Female 05/30/2020 1:19 PM EST Sexual Orientation Straight 05/30/2020 1: 19 PM EST 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 It is not the complete legal health record.[facility]
--- OUTSIDE RECORDS SUMMARY | 2024-10-31 12:05 | XMS_ITS | Clinical Summary ---
Author Organization [facility] Address [address] [place] [address] Phone Care Team Providers Care Executive Officer Name Role Phone Ana María Bryan MD Primary Care Provider [phone] Medications ascorbic acid (VITAMIN C) 500 mg [...] f brachial vein of right upper extremity ([facility] V24, [facility] V28) 03/24/2022 Overview (07/21/2024): On Eliquis 5mg [...] square meter and albuminuria creatinine ratio bet* ([facility] V24, [facility] V28) 03/17/2022 Chronic kidney disease (CKD) stage G3a/A2, moderately decreased glomerular filtration rate (GFR) between 45-59 mL/min/1.73 square meter and albuminuria creatinine ratio bet* ([facility] V24, [facility] V28) 03/17/2022 Overview (07/21/2024): Last Assessment & Plan: History of renal transplant Creatinine is at baseline, avoid nephrotoxic medications, BUN is slightly elevated Continue patient's tacrolimus and prednisone Mycophenolate was not listed last admission but patient and her family tell me she is taking this twice a day, this has been added to her med list and ordered Stage 3 chronic kidney disease ([facility] V24, [facility] V28) 03/17/2022 Overview (07/21/2024): Last Assessment & [...] pain 03/17/2022 Gastrointestinal hemorrhage 03/17/2022 Diabetes mellitus ([facility] V24, [facility] V28) Overview (07/21/2024): Last Assessment & Plan: Patient normally takes a home regimen with combination oral agents and insulin. At home uses Humalog 3 times daily, 6 units before meals. Also takes Lantus at bedtime 8 units. In addition she takes Jardiance 25 mg daily. Jardiance held at admission. -Monitor hhdvj-ke-vnqv glucose with meals and nightly, and every [...] tolerated. FU in 3 months. F/u with speeder operator Type 2 diabetes mellitus wit hout complication ([facility] V24, [facility] V28) 03/13/2022 Overview (07/21/2024): Last Assessment & Plan: Continue insulin, will be n.p.o. 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 ([facility] V24, [facility] V28) 05/11/2020 Essential hypertension 05/11/2020 History of kidney transplant 05/11/2020 Overview (07/21/2024): Last Assessment & Plan: Patient takes tacrolimus and mycophenolate, confirm these doses with me and these meds will continue She also states that she was put on Plavix at the time of her transplant, she states she has never had an [place]/stents or stroke and has never had any [...] Panel) 02/06/2024 Colorectal Cancer Screening: Colonoscopy 02/06/2024 Falls Risk Assessment 02/06/2024 Hepatitis C Screening 02/06/2024 Medicare Annual Wellness Visit 02/06/2024 Osteoporosis Screening (Bone Density Screening) 02/06/2024 Social Influencers of Health Screening 02/06/2024 Depression Screening 03/26/2024 Diabetes: Annual Urine Albumin-Creatinine Ratio (uACR) 05/20/2024 [...] patient's age to complete this topic Insurance [address] [place], [place] [id number] [facility] [place] [id number] Care Teams Executive Officer Relationship Specialty Start Date End Date Ana María Bryan MD [address] [place] [phone] PCP - General Internal Medicine 02/06/24
[2024-10-31 13:33] LABS: Total Volume 24 Hour Urine 3040 mL
[2024-10-31 14:06] LABS: Creatinine, mg/dL 17.08
[2024-11-11 14:28] LABS: Calcium/Creatinine Ratio 25 mg/g creat (30-275); Creatinine 24Hr Urine 0.61 g/24 h (0.50-2.15)
== END 2024-10-31 12:04 | disposition home or self-care (01) ==
LOC: HO.LNP 12:03
PROVIDERS: Visit Provider Internal Medicine Endocrinology, Diabetes & Metabolism
DX: M81.0 Age-related osteoporosis without current pathological fracture (principal)
CPT/HCPCS: 82340; 82570

== ENCOUNTER 2024-11-04 10:35 | Outpatient (AMB) | payer OTHER, SELFPAY ==
[2024-11-04 10:37] VITALS: BP 134/54; PULSE 71; O2SAT 95; BMI 23.7
--- NOTE | 2024-11-04 10:37 | A.OFFVIS_ITS ---
Vital Signs 11/04/24 10:37 Height 4 ft 9.2 in Weight 110 lb 3.698 oz BMI 23.7 BP 134/54 L Blood Pressure Location Rt brachial Position Sitting Pulse 71 Pulse Source Pulse Oximeter Pulse Oximetry (%) 95 Oxygen Delivery Method Room Air Intake Visit Reasons: f/u osteoporosis/secondary hyperparathyroidism Intake Note: Patient present today for Osteoporosis/ Secondary Hyperparathyroidism follow up. Director Embalmer Required: No Director Embalmer Services: Director Embalmer Present Director Embalmer [facility]: [facility] Thompson/ Kallie Information Interpreted: non-clinical & clinical Accompanied by: Daughter Allergies diphenhydramine (From Benadryl) Adverse Reaction (Verified 11/04/24 10:49) Anxiety HPI Comments Details: 74 yo female today for fup visit, she was seen for diabetes and osteoporosis management She is feeling well. She had the last Prolia shot on 06/19/2023. She is due for a shot today She has other PMH of ESRD s/p kidney transplant on 2011, on prednisone 5 mg daily, Sees Dr. Page of nephrology she had GERD, HTN, dyslipidemia. Osteoporosis. She has retinopathy s/p laser last time 1 year ago. Diabetic nephropathy, neuropathy. no Macrovascular disease. Last ophthalmology evaluation: 06/2022 - needs to make appt , she has retinopathy. She has nocturia 1 time only, denies polydipsia, polyuria, + numbness, tingling. denies blurred vision. 10/08/2019 DEXA scan AP SPINE L1-L4: Current: BMD 0.881 g/cm2, Z-score -0.7, T-score -2.5, osteoporosis, 17.2% increase from baseline (<5% change is not significant). Baseline: BMD 0.752 g/cm2. LEFT FEMUR, NECK: Current: BMD 0.650 g/cm2, Z-score -1.0, T-score -2.8, osteoporosis. Baseline: BMD 0.619 g/cm2. LEFT FEMUR, TOTAL: Current: BMD 0.676 g/cm2, Z-score -1.1, T-score -2.6, osteoporosis, 2.3% increase from baseline (<5% change is not significant). Baseline: BMD 0.661 g/cm2. Laboratory Tests 05/15/19 05/15/19 05/20/19 12:00 12:00 09:00 Sodium Potassium Creatinine Estimated GFR Hemoglobin A1c % Calcium AST ALT Alkaline Phosphatase N-Telopeptide X-linked 25-OH Vitamin D Total 54.7 Ur Random Microalbumin Ur 24 Hour Volume 2825 Ur Calcium 24 Hr 31 L Calcium/Creat 24 Hr 37 Bone Specific Alk Phos 6.0 08/13/19 05/28/20 05/28/20 11:20 10:45 10:48 Sodium 139 Potassium 4.7 Creatinine 1.22 Estimated GFR 44 Hemoglobin A1c % Calcium AST 24 ALT 25 Alkaline Phosphatase 50 N-Telopeptide X-linked 8 25-OH Vitamin D Total Ur Random Microalbumin 6.0 Ur 24 Hour Volume Ur Calcium 24 Hr Calcium/Creat 24 Hr Bone Specific Alk Phos 05/28/20 07/22/20 10:48 11:41 Sodium Potassium Creatinine Estimated GFR Hemoglobin A1c % 7.9 Calcium 10.2 AST ALT Alkaline Phosphatase N-Telopeptide X-linked 25-OH Vitamin D Total Ur Random Microalbumin Ur 24 Hour Volume Ur Calcium 24 Hr Calcium/Creat 24 Hr Bone Specific Alk Phos Laboratory Tests 05/15/19 05/20/19 08/13/19 12:00 09:00 11:20 Sodium Potassium Creatinine Estimated GFR Fasting Glucose Hgb A1c Fingerstick Hemoglobin A1c % Calcium AST ALT Albumin N-Telopeptide X-linked 25-OH Vitamin D Total 54.7 Ur Creatinine 24 Hour 0.84 Microalb/Creat Ratio 4.7 12/15/19 05/28/20 05/28/20 10:57 10:45 10:48 Sodium 139 Potassium 4.7 Creatinine 1.22 Estimated GFR 44 Fasting Glucose 184 H Hgb A1c Fingerstick 8.2 Hemoglobin A1c % Calcium 10.1 AST 24 ALT 25 Albumin 4.2 N-Telopeptide X-linked 8 25-OH Vitamin D Total Ur Creatinine 24 Hour Microalb/Creat Ratio 05/28/20 10:48 Sodium Potassium Creatinine Estimated GFR Fasting Glucose Hgb A1c Fingerstick Hemoglobin A1c % 7.9 Calcium AST ALT Albumin N-Telopeptide X-linked 25-OH Vitamin D Total Ur Creatinine 24 Hour Microalb/Creat Ratio on Prolia 60 mg q.6 months. . Tolerating Prolia well. No fx since last visit. To receive Prolia injection today. on calcium supplementation [id number] in AM 650 mg with lunch and 650 mg in dinner . 24 hour urine calcium was low with elevated PTH The patient is a 74-year-old female presenting with follow-up concerns regarding both osteoporosis and type 2 diabetes mellitus. She has experienced hypocalciuria and has been prescribed calcium supplementation using Viactive. The dosing has been variable, with possible inconsistencies in daily intake, leading to concerns about insufficient calcium for optimal bone health. Her osteoporosis management needs to be reassessed, considering the introduced regimen might not be entirely followed. 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 Mother No problems noted. Sister Breast cancer Diabetes Maternal Aunt Cancer Maternal Uncle Cancer Social History Household Members: Spouse Alcohol intake: never Patient Tobacco Use Status: Never used Tobacco service: No Current occupational status: retired Gender identity: Female Physical Exam Vital Signs: Last Vital Signs Pulse 71 11/04/24 10:37 BP 134/54 L 11/04/24 10:37 Pulse Ox 95 11/04/24 10:37 Oxygen Delivery Method Room Air 11/04/24 10:37 BMI result Body Mass Index 23.7 Assessment & Plan Assessment & Plan (1) Osteoporosis: Code(s): M81.0 - Age-related osteoporosis without current pathological fracture Category: Medical Plan: Patient has severe osteoporosis as a very high risk for fracture. She has CKD- bone mineral disease. Secondary workup was negative. , 24 hour urine for calcium was low suggesting insufficient calcium intake and secondary hyperparathyroidism component The plan is continue the Prolia. Patient will follow-up with Nephrology for treatment of the CKD-bone mineral disease to be optimized. Patient's next Prolia injection is due December 2024 Will have patient start sugar free calcium citrate in the form of Viactiv 1300 mg in AM and lunch and 650 mg in PM . Will recheck 24 hour urine for calcium and creatinine which is still pending to adjust the calcium supplementation Coding Level of Care Code Est Pt Level 3 (59664) Diagnoses Osteoporosis M81.0
--- OUTSIDE RECORDS SUMMARY | 2024-11-04 11:40 | XMS_ITS | Encounter Summary ---
Author Organization [facility] Address [address] [facility] [address] [place] [phone] Phone Care Team Providers Care Parks And Recreation Worker Name Role Phone Ana María Bryan MD Primary Care Provider + Encounter Details Date Type Department Care Team (Late st Contact Info) Description 03/15/2022 Procedure Pass [facility] Endoscopy Admitting Dept Virtual Department [address] [place] [address] Social History Tobacco Use Types Packs/Day Years [...] on filedocumented in this encounter Care Teams Parks And Recreation Worker Relationship Specialty Start Date End Date Ana María Bryan MD [address] [place] [address] [place] [phone] PCP - General Internal Medicine 03/13/22 documented as of this encounter Additional Source Comments The information contained in this document represents components of the legal health record. It is not the complete legal health record.[facility]
--- OUTSIDE RECORDS SUMMARY | 2024-11-04 11:40 | XMS_ITS | Clinical Summary ---
Author Organization [address] [facility] Address [address] [place] [address] Phone Care Team Providers Care Contact Finger Assembler Name Role Phone Ana María Bryan MD Primary Care Provider [phone] Medications ascorbic acid (VITAMIN C) 500 mg [...] f brachial vein of right upper extremity ([facility] V24, [facility] V28) 03/24/2022 Overview (07/21/2024): On [...] square meter and albuminuria creatinine ratio bet* ([facility] V24, [facility] V28) 03/17/2022 Chronic kidney disease (CKD) stage G3a/A2, moderately decreased glomerular filtration rate (GFR) between 45-59 mL/min/1.73 square meter and albuminuria creatinine ratio bet* ([facility] V24, [facility] V28) 03/17/2022 Overview (07/21/2024): Last Assessment & Plan: History of renal transplant Creatinine is at baseline, avoid nephrotoxic medications, BUN is slightly elevated Continue patient's tacrolimus and prednisone Mycophenolate was not listed last admission but patient and her family tell me she is taking this twice a day, this has been added to her med list and ordered Stage 3 chronic kidney disease ([facility] V24, [facility] V28) 03/17/2022 Overview (07/21/2024): Last [...] pain 03/17/2022 Gastrointestinal hemorrhage 03/17/2022 Diabetes mellitus ([facility] V24, [facility] V28) Overview (07/21/2024): Last Assessment & Plan: Patient normally takes a home regimen with combination oral agents and insulin. At home uses Humalog 3 times daily, 6 units before meals. Also takes Lantus at bedtime 8 units. In addition she takes Jardiance 25 mg daily. Jardiance held at admission. -Monitor eywjl-mi-kyxo glucose with meals and nightly, and every [...] tolerated. FU in 3 months. F/u with glazing department supervisor Type 2 diabetes mellitus wit hout complication ([facility] V24, [facility] V28) 03/13/2022 Overview (07/21/2024): Last Assessment & Plan: Continue insulin, will be n.p.o. 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 ([facility] V24, [facility] V28) 05/11/2020 Essential hypertension 05/11/2020 History of kidney transplant 05/11/2020 Overview (07/21/2024): Last Assessment & Plan: Patient takes tacrolimus and mycophenolate, confirm these doses with me and these meds will continue She also states that she was put on Plavix at the time of her transplant, she states she has never had an [place]/stents or stroke and has never had any [...] age to complete this topic Insurance [address] [place], [place] [id number] [facility] [place] [id number] Care Teams Contact Finger Assembler Relationship Specialty Start Date End Date Ana María Bryan MD [address] [place] [phone] PCP - General Internal Medicine 02/06/24
--- OUTSIDE RECORDS SUMMARY | 2024-11-04 11:40 | XMS_ITS | Encounter Summary ---
Author Organization [employer] Address [address] [facility] [address] [place] [address] Care Team Providers Care Optical Laboratory Mechanic Name Role Phone Ana María Bryan MD Primary Care Provider + Reason for Visit * Reason Comments Med Refill Encounter Details Date Type Department Care Team ([facility] st Contact Info) Description 10/29/2023 Refill [facility] [address] [place] [address] Ana María Bryan MD [address] [place] [address] Primary insomnia Social History Tobacco Use Types [...] documented as of this encounter Care Teams Optical Laboratory Mechanic Relationship Specialty Start Date End Date Ana María Bryan MD [address] [place] [address] PCP - General Family Medicine 03/26/18 documented as of this encounter
--- OUTSIDE RECORDS SUMMARY | 2024-11-04 11:40 | XMS_ITS | Clinical Summary ---
Author Organization [facility] Address [address] [place] [address] Care Team Providers Care Stockfeed Miller Name Role Phone Pcp, No Primary Care [...] patient's age to complete this topic Insurance [facility] MEDICARE MEDICAID OUT OF STATE [facility] Care Teams Stockfeed Miller Relationship Specialty Start Date End Date Pcp, No [address] [place] [address] PCP - General 12/17/19
--- OUTSIDE RECORDS SUMMARY | 2024-11-04 11:40 | XMS_ITS | Clinical Summary ---
Author Organization [facility] Address [address] [place] [phone] Phone Care Team Providers Care Case Operator Name Role Phone Ana María Bryan MD Primary Care Provider [phone] Allergies Active Allergy Reactions Criticality Noted Date [...] 10/20/19 21 Active Lancets (OneTouch Delica Plus [id number]) misc TEST BLOOD SUGAR 4 TIMES A [...] mg daily. Jardiance held at admission. -Monitor eefis-ad-ivlq glucose with meals and nightly, and every [...] tolerated. FU in 3 months. F/u with center customer service associate Type 2 diabetes mellitus without complication Overview [...] Of [place] [address] [place] [address] Bruce Galarza MD 10/09/2024 10:30 AM EDT Office Visit [facility] [address] [place] [address] Bruce Galarza MD Kidney transplant status (Primary Dx) 09/28/2024 Refill [facility] [place] [address] [place] [address] Bruce Galarza MD Iron deficiency anemia, not [...] Office Visit [facility] [address] [phone] Bruce Galarza MD [address] [phone] Health Maintenance Due Date Last [...] [facility] [address], [address] [place] [phone] * (ABNORMAL) Microscopic Examination (09/30/2024 10:25 AM EDT) WBC, Urine 6-10(A) 0 - 5 /hpf [facility] RBC, Urine None seen 0 - 2 /hpf [facility] Squamous Epithelial, Urine >10(A) 0 - 10 /hpf [facility] Casts None seen None seen /lpf [facility] Bacteria, Urine None seen None seen/Few [facility] 09/30/2024 10:2 5 AM EDT 09/30/2024 Bruce Galarza MD LAB MICROBIOLOGY - GENERAL OR DERABLES Final Result [facility] [place] [address] [place] [address] * (ABNORMAL) Urinalysis with microscopic (09/30/2024 10:25 AM EDT) Specific Jarrell, Urine 1.018 1.005 - 1.030 [facility] [phone] pH Urine 5.5 5.0 - 7.5 [facility] Color, Urine Yellow Yellow [facility] Appearance Urine Clear [facility] [place] [phone] WBC Esterase Urine Trace(A) Negative [facility] Protein, Ur 1+(A) Negative/Tra ce [facility] Glucose, Ur Negative Negative [facility] Ketones, Urine Negative Negative [facility] [place] Blood Urine Negative Negative [facility] Bilirubin Urine Negative Negative [facility] [place] Urobilinogen Urine 0.2 0.2 - 1.0 mg/dL [facility] Nitrite, Urine Negative Negative [facility] [place] Microscopic Examination See below: [facility] Comment:Microscopic was rachell cated and was performed. 09/30/2024 10:2 5 AM EDT 09/30/2024 Bruce Galarza MD LAB URINE ORDERABLES Final Re sult [facility] [address] [place] [address] * Urine Culture (09/30/2024 10:25 AM EDT) Culture Result, Urine Final report [facility] 09/30/2024 10:2 5 AM EDT 09/30/2024 Comment:UC us Bruce Galarza MD LAB URINE ORDERABLES Final Re sult [facility] [address], [address] [place] [address] * (ABNORMAL) Renal Function Panel (09/30/2024 10:25 AM EDT) Glucose 218(H) 70 - 99 mg/dL [facility] BUN 28(H) 8 - 27 mg/dL [facility] Creatinine 1.00 0.57 - 1.00 mg/dL [facility] eGFR CKD-EPI CR 2020 59(L) >59 mL/min/1.7 3 [facility] BUN/Creatinine Ratio 28 12 - 28 [facility] Sodium 139 134 - 144 mmol/L [facility] Potassium 4.6 3.5 - 5.2 mmol/L [facility] Chloride 98 96 - 106 mmol/L [facility] Bicarbonate (CO2) 22 20 - 29 mmol/L [facility] Calcium 10.7(H) 8.7 - 10.3 mg/dL [facility] Comment:Verified by repeat analysis Albumin 4.1 3.8 - 4.8 g/dL [facility] Phosphorus 3.8 3.0 - 4.3 mg/dL [facility] 09/30/2024 10:2 5 AM EDT 09/30/2024 Comment: Bruce Galarza MD LAB BLOOD ORDERABLES Final Re sult Performing Organization Address City/[facility]/ZIP Co de Phone Number [facility] Phillip [address] [place] [phone] * (ABNORMAL) Hemoglobin A1c (05/31/2022 10:19 AM EST) Hemoglobin A1C 6.8(H) (4.0-5.6) % [facility] Comment: MONITORING: In known diabetic patients, hemoglobin A1c targets should be discussed with health care provider. DIAGNOSTIC USE: The [place] Diabetes Association (ADA) and the World Health [...] Supplement 1 Testing performed or reported by [facility], a Service of [facility], [address] [place] [id number] Carlene Prasad MD, Gl Accountant [facility]# [id number] Blood specimen (specimen) Venous blood / Unknown 05/31/2022 10:19 AM EST 05/31/2022 10:20 AM EST Olivia Trujillo MD LAB BLOOD ORDERABLES Final Resu lt [facility] from Last 3 Months or Most Recently Relevant to Health Maintenance Insurance Dual MCR/[facility] ([id number]) [place] Dual MCR/[facility] ([id number]) Care Teams Case Operator Relationship Specialty Start Date End Date Ana María Bryan MD [address] [place] [phone] PCP - General 04/05/20
== END 2024-11-04 11:23 | disposition home or self-care (01) ==
LOC: HO.ENCR 10:36
PROVIDERS: PCP Internal Medicine; Visit Provider Internal Medicine Endocrinology, Diabetes & Metabolism
DX: M81.0 Age-related osteoporosis without current pathological fracture (principal)
CPT/HCPCS: 99213

== ENCOUNTER → 2024-11-04 10:35 | Outpatient (BNVA) | payer OTHER, SELFPAY | PROVIDERS: PCP Internal Medicine; Visit Provider Internal Medicine Endocrinology, Diabetes & Metabolism | DX: M81.0 Age-related osteoporosis without current pathological fracture (principal) | CPT/HCPCS: 99212 ==

== ENCOUNTER 2024-12-01 10:44 | Outpatient (AMB) | payer OTHER, SELFPAY ==
[2024-12-01 11:01] VITALS: BP 136/48; PULSE 74; O2SAT 99; BMI 23.0
--- NOTE | 2024-12-01 11:01 | MHC.OFFVIS ---
Vital Signs 12/01/24 11:01 Height 4 ft 9.36 in Weight 107 lb 9.369 oz BMI 23.0 BP 136/48 L Blood Pressure Location Rt brachial Position Sitting Pulse 74 Pulse Source Pulse Oximeter Pulse Oximetry (%) 99 Oxygen Delivery Method Room Air Intake Visit Reasons: T2DM Intake Note: Patient present today for Type 2 Diabetes Mellitus Last Diabetic eye exam: Patient had test done 2 weeks ago Last Podiatry Visit: 05/2024 Random Glucose: 109 mg/dl HgA1C: 8.2% Metal Mine Inspector Required: Yes Metal Mine Inspector Language: Security Officer Supervisor Services: Metal Mine Inspector Present Metal Mine Inspector Name: [place] Information Interpreted: non-clinical & clinical Accompanied by: Daughter Allergies diphenhydramine (From Benadryl) Adverse Reaction (Verified 12/01/24 11:05) Anxiety HPI HPI T2DM: Details: Patient is a 74-year-old female with a significant past medical history of diabetes, history of end-stage renal disease, s/p renal transplant, hypertension, hyperlipidemia, chronic anticoagulation, osteoporosis presenting today for a follow up regarding her diabetes. [place] [id number]. Patient is also accompanied by her daughter who is a caregiver. Dm- Her A1c is 8.2. She is currently on Lantus 10 units nightly, Humalog 2-6 units 3 times a day -She was getting utis with the jardiance and this was recently d/c'd by her payable processor. cgm-usage 88%, G mi 8.2%, average glucose 204. Very hyperglycemic 20%, hyperglycemic 41%, in range 39%, hypoglycemic 0%. She denies any recent hypoglycemia On an GEORGETTE inhibitor Nephro: History of end-stage renal disease, s/p renal transplant 2011. Follows with Dr. Parr. CV: Blood pressure today in the office is 134/54. She is on lisinopril 2.5 mg. Cholesterol controlled with 80 mg of atorvastatin. 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 Mother No problems noted. Sister Breast cancer Diabetes Maternal Aunt Cancer Maternal Uncle Cancer Social History Household Members: Spouse Alcohol intake: never Patient Tobacco Use Status: Never used Tobacco service: No Current occupational status: retired Gender identity: Female Physical Exam Vital Signs: Last Vital Signs Pulse 74 12/01/24 11:01 BP 136/48 L 12/01/24 11:01 Pulse Ox 99 12/01/24 11:01 Oxygen Delivery Method Room Air 12/01/24 11:01 BMI result Body Mass Index 23.0 Const Orientation/consciousness: patient oriented x3 HEENT Ears: hearing grossly normal bilaterally Neck Thyroid: Thyroid normal Lymphatic: no lymphadenopathy noted Resp Auscultation: clear to auscultation bilaterally Cardio Rate: regular rate Rhythm: regular rhythm Heart sounds: S1 normal heart sound present and S2 normal heart sound present Skin General skin exam: no rashes or lesions noted Neuro General: patient oriented x3, gait normal and no focal motor deficits Results AMB Hemoglobin A1c AMB Hemoglobin A1c 8.2 % Last Edit by ARTI Lawler on 12/01/24 11:28 Results Reviewed Results Reviewed: Laboratory Last Values Glucose (Clinic) 109 mg/dL (60-115) 12/01/24 11:07 Hgb A1c (Clinic) 8.2 % (4.0-6.0) H 12/01/24 11:09 Laboratory Tests 07/02/24 08/04/24 09:45 10:15 Creatinine 0.99 Estimated GFR 55 Glucose (Clinic) 136 H Hemoglobin A1c % 7.8 H Assessment & Plan Assessment & Plan (1) Diabetic nephropathy associated with type 2 diabetes mellitus: Code(s): E11.21 - Type 2 diabetes mellitus with diabetic nephropathy Category: Medical Plan: increase lantus to 14 units continue humalog 2-6 units follow up in 2-3 months or sooner pn (2) Hypertension: Code(s): I10 - Essential (primary) hypertension Category: Medical Plan: wnl continue current plan Orders: Orders AMB Hemoglobin A1c Today E11.65 - Type 2 diabetes mellitus with hyperglycemia, Z13.9 - Encounter for screening, unspecified Coding Level of Care Code Est Pt Level 4 (98741) Complex EM visit Add On G2211 Diagnoses Diabetic nephropathy associated with type 2 diabetes mellitus E11.21 Hypertension I10
[2024-12-01 11:10] LABS: Glucose, Whole Blood 109 mg/dL (60-115)
--- OUTSIDE RECORDS SUMMARY | 2024-12-01 13:05 | XMS_ITS | Encounter Summary ---
Author Organization [employer] Address [address] [facility] 7t [place] [address] Care Team Providers Care Litigation Legal Assistant Name Role Phone Ana María Bryan MD Primary Care Provider + Reason for Visit * Reason Comments Med Refill Encounter Details Date Type Department Care Team (Late st Contact Info) Description 11/18/2023 Refill [facility] MEDICINE [address] [place] [address] Ana María Bryan MD [address] [place], [place] [phone] Acute deep vein thrombosis (DVT) of proximal [...] documented as of this encounter Care Teams Litigation Legal Assistant Relationship Specialty Start Date End Date Ana María Bryan MD [address] [place] [phone] PCP - General Family Medicine 03/26/18 documented as of this encounter
--- OUTSIDE RECORDS SUMMARY | 2024-12-01 13:05 | XMS_ITS | Encounter Summary ---
Author Organization [employer] Address [address] [facility] 7t [place] [address] Care Team Providers Care Paint Preparer Name Role Phone Ana María Bryan MD Primary Care Provider + Encounter Details Date Type Department Care Team ([facility] st Contact Info) Description 05/08/2022 [facility] Information Management [address] [place] [address] Ana María Bryan MD [address] [place] [address] Social History Tobacco Use Types Packs/Day Years [...] documented as of this encounter Care Teams Paint Preparer Relationship Specialty Start Date End Date Ana María Bryan MD [address] [place] [id number] PCP - General Family Medicine 03/26/18 documented as of this encounter
--- OUTSIDE RECORDS SUMMARY | 2024-12-01 13:05 | XMS_ITS | Clinical Summary ---
Author Organization [facility] Address [address] [place] [address] Care Team Providers Care Drawbridge Operator Name Role Phone Pcp, No Primary [...] Health Maintenance Due Date Last Done Comments Advance Care Planning 1950 Hepatitis C Virus Screening 1950 DTaP/Tdap/Td Vaccines [...] patient's age to complete this topic Insurance [facility] MEDICARE MEDICAID OUT OF STATE [facility] [place] Care Teams Drawbridge Operator Relationship Specialty Start Date End Date Pcp, No [address] [place] [address] PCP - General 12/17/19
--- OUTSIDE RECORDS SUMMARY | 2024-12-01 13:05 | XMS_ITS | Encounter Summary ---
Author Organization [employer] Address [address] [facility] 7t [place] [address] Care Team Providers Care Eyedotter Name Role Phone Ana María Bryan MD Primary Care Provider + Encounter Details Date Type Department Care Team (Latest Contact Info) Description 01/29/2019 Abstract [facility] CONVERSIONS Dental, Provider, DDS Social History [...] on filedocumented in this encounter Care Teams Eyedotter Relationship Specialty Start Date End Date Ana María Bryan MD [address] [place] [phone] PCP - General Family Medicine 03/26/18 documented as of this encounter
--- OUTSIDE RECORDS SUMMARY | 2024-12-01 13:05 | XMS_ITS | Encounter Summary ---
Author Organization [employer] Address [address] [facility] 7t [place] [address] Care Team Providers Care Aging Room Operator Name Role Phone Ana María Bryan MD Primary Care Provider + Reason for Visit * Reason Comments Med Refill Encounter Details Date Type Department Care Team (Late st Contact Info) Description 11/21/2022 Refill [facility] MEDICINE [address] [place] [address] Ana María Bryan MD [address] [place], [place] [phone] Type 2 diabetes mellitus with stage 3 [...] documented as of this encounter Care Teams Aging Room Operator Relationship Specialty Start Date End Date Ana María Bryan MD [address] [place] [phone] PCP - General Family Medicine 03/26/18 documented as of this encounter
--- OUTSIDE RECORDS SUMMARY | 2024-12-01 13:05 | XMS_ITS | Encounter Summary ---
Author Organization [employer] Address [address] [facility] 7t [place] [address] Care Team Providers Care Linoleum Tile Layer Name Role Phone Ana María Bryan MD Primary Care Provider + Encounter Details Date Type Department Care Team (Late st Contact Info) Description 09/12/2022 Abstract [facility] MEDICINE [address] [place] [address] Ana María Bryan MD [address] [place] [address] Social History Tobacco Use Types Packs/Day Years [...] documented as of this encounter Care Teams Linoleum Tile Layer Relationship Specialty Start Date End Date Ana María Bryan MD [address] [place] [phone] PCP - General Family Medicine 03/26/18 documented as of this encounter
--- OUTSIDE RECORDS SUMMARY | 2024-12-01 13:05 | XMS_ITS | Encounter Summary ---
Author Organization [employer] Address [address] [facility] 7t [place] [address] Care Team Providers Care Chief Of Safety And Protection Name Role Phone Ana María Bryan MD Primary Care Provider + Encounter Details Date Type Department Care Team (Late st Contact Info) Description 12/01/2024 Orders Only GENERIC EXTERNAL DATA DEPARTMENT Provider, Generic External Data Social History Tobacco Use Types Packs/Day Years Used Date Smoking Tobacco: Never Passive Smoke Exposure: Never Smokeless Tobacco: Never Alcohol Use Standard Drinks/Week Comments Never 0 (1 standard drink = 0.6 oz pur e alcohol) Depression Answer Date Recorded Patient Health Questionnaire-9 Score 0 10/03/2024 Patient Health Questionnaire-9 Score 0 10/03/2024 Last PHQ-9: Questionnaire Data Not on file 0 10/03/2024 Housing Stability Answer Date Recorded What is [...] Date Recorded Patient Health Questionnaire-2 Score 0 10/03/2024 Internet Access Answer Date Recorded Internet Access [...] Associated Diagnosis Comments GLUCOSE, WHOLE BLOOD Routine 12/01/2024 11:07 AM EDT documented in this encounter Results * Glucose, Whole Blood (12/01/2024 11:07 AM EDT) Glucose, Whole Blood 109 60 - 115 mg/dL [facility] Comment:METER #: [id number] 0Testing performed in the Endocrinology Department [address] , [address], [facility]. 12/01/2024 11:0 7 AM EDT 12/01/2024 11:10 AM EDT us Generic External Data Provider LAB BLOOD ORDERAB LES Final Result [facility] [address] [place] [address] [phone] documented in this encounter Visit Diagnoses Not on filedocumented in this encounter Additional Health Concerns Assessment Noted Time PHQ-9 Depression Total Score: 0 10/04/19 25 11:18 AM EDT documented as of this encounter Care Teams Chief Of Safety And Protection Relationship Specialty Start Date End Date Ana María Bryan MD [address] [place] [phone] PCP - General Family Medicine 03/26/18 documented as of this encounter
--- OUTSIDE RECORDS SUMMARY | 2024-12-01 13:05 | XMS_ITS | Encounter Summary ---
Author Organization [employer] Address [address] [facility] 7t [place] [address] Care Team Providers Care Concrete Finisher Apprentice Name Role Phone Ana María Bryan MD Primary Care Provider + Encounter Details Date Type Department Care Team (Late st Contact Info) Description 05/11/2022 Orders Only [facility] MEDICINE [address] [place] [address] Vandana Ledesma DO [address] [place], [place] [phone] Social History Tobacco Use Types Packs/Day Years [...] documented as of this encounter Care Teams Concrete Finisher Apprentice Relationship Specialty Start Date End Date Ana María Bryan MD [address] [place] [phone] PCP - General Family Medicine 03/26/18 documented as of this encounter
--- OUTSIDE RECORDS SUMMARY | 2024-12-01 13:05 | XMS_ITS | Clinical Summary ---
Author Organization [employer] Address [address] [place] [address] Care Team Providers Care Lubrication Supervisor Name Role Phone Ana María Bryan MD Primary Care Provider + Allergies Active Allergy Reactions Criticality Noted Date Comments Diphenhydramine Unknown 08/18/2016 Other reaction(s): Other (see comments) feeling of panic Medications Blood Glucose Monitoring Suppl (ONE TOUCH ULTRA [...] MEALS DIRECTED Active Lancets (OneTouch Delica Plus [id number]) [facility] TEST BLOOD SUGAR 4 TIMES A DAY Active mycophenolate (Myfortic) 180 MG EC tablet TAKE 1 TABLET BY MOUTH TWICE DAILY IN THE MORNING AND IN THE EVENING Active Veltassa 8.4 g pack MIX 1 PACKAGE IN WATER AND TAKE DAILY DIRECTED Active predniSONE (Deltasone) 5 MG tablet TAKE 1 TABLET BY MOUTH EVERY MORNING 022 Active tacrolimus (Prograf) 1 MG capsule TAKE 2 CAPSULES BY MOUTH TWICE DAILY IN THE MORNING AND EVENING 022 Active glucose (Glutose) 40 % gel oral gelIndications:Typ e 2 diabetes mellitus with stage 3 chronic kidney disease, with long-term current use of insulin, unspecified whether stage 3a or 3b CKD (CMS/HCC) TAKE 1/2 TUBE BY MOUTH NEEDED HYPOGLYCEMIA DIRECTED 30 g 5 023 Active lisinopril 2.5 MG tablet TAKE 1 TABLET BY MOUTH EVERY MORNING 90 tablet 1 023 Active Molnupiravir 200 MG capsule Take 800 mg by mouth 2 times daily. Take 4 tabs (800 mg) po bid for 5 days. Georgian label 40 capsule 024 Active gabapentin (Neurontin) 100 MG capsule TAKE 1 CAPSULE BY MOUTH AT BEDTIME 90 capsule 1 025 Active fluticasone (Flonase) 50 MCG/ACT nasal sprayIndications:S easonal allergic rhinitis due to other allergic trigger Use 1-2 sprays in each nostril every day as needed 48 g 025 Active senna-docusate sodium (Senokot-S) 8.6-50 MG tabletIndications: Constipation, unspecified constipation type Take 2 tablets once, then 1 tablet daily 30 tablet 1 025 Active polyethylene glycol, PEG, 3350 (MiraLax) 17 GM/SCOOP powderIndications: Constipation, unspecified constipation type Mix 1 capful in 8 in 8 oz water and drink daily 527 g 2 025 Active Pentips Generic Pen [place] 32G X 4 MM misc USE FOUR TIMES DAILY 100 each 5 025 Active Acetaminophen Extra Strength 500 MG tablet 1 tab po tid prn pain/fever/TRAVIS 60 tablet 2 025 Active atorvastatin (Lipitor) 80 MG tabletIndications: Hyperlipidemia, unspecified hyperlipidemia type TAKE 1 TABLET BY MOUTH EVERY EVENING 90 tablet 1 025 Active Ascorbic Acid (vitamin C) 500 MG tabletIndications: Iron deficiency anemia due to chronic blood loss TAKE 1 TABLET BY MOUTH EVERY MORNING 90 tablet 1 025 Active [employer] Ultra Test test stripIndications:T ype 2 diabetes mellitus with stage 3 chronic kidney disease, with long-term current use of insulin, unspecified whether stage 3a or 3b CKD ([facility]) TEST BLOOD SUGAR FOUR TIMES DAILY 100 strip 11 025 Active fluticasone (Flonase) 50 MCG/ACT nasal sprayIndications:A cute maxillary sinusitis, recurrence not specified Administer 1 spray into each nostril Once per day. Shake gently. Before first use, prime pump. After use, clean tip and replace cap. 16 g 025 09/23 Active traZODone (Desyrel) 100 MG tablet TAKE 1 TABLET BY MOUTH TWICE DAILY IN THE MORNING AND AT BEDTIME AFTER MEALS 60 tablet 3 025 Active pantoprazole (ProtoNix) 40 MG EC tabletIndications: Upper gastrointestinal bleeding TAKE 1 TABLET BY MOUTH TWICE DAILY IN THE MORNING AND IN THE EVENING 180 tablet 025 Active pantoprazole (ProtoNix) 40 MG EC tabletIndications: Upper gastrointestinal bleeding Take 1 tablet (40 mg) by mouth with breakfast and with evening meal. Do not crush, chew, or split. 180 tablet 025 Active docusate sodium (Colace) 100 MG capsule TAKE 1 CAPSULE BY MOUTH TWICE DAILY NEEDED 180 capsule 1 025 Active melatonin 5 MG tabletIndications: Primary insomnia TAKE 1 TABLET BY MOUTH AT BEDTIME 90 tablet 025 Active melatonin 5 MG tabletIndications: Primary insomnia TAKE 1 TABLET BY MOUTH AT BEDTIME 90 tablet 025 11/03 Discontinued Diclofenac Sodium 1 % gel Apply 1 inch topically if needed in the morning and at bedtime (pain). 60 g 025 11/02 Saccharomyces boulardii (probiotic) 250 MG capsule Take 1 capsule (250 mg) by mouth with breakfast and with evening meal. 60 capsule 025 11/02 ibuprofen 200 MG tabletIndications: Right hand pain Take 1 tablet (200 mg) by mouth 3 times daily for 14 days. 42 tablet 025 11/07 Active Problems Problem Noted Date Diagnosed Date Closed fracture of multiple ribs of left side with delayed healing 10/03/2024 Assessment & Plan (10/03/2024 1:56 PM EDT): Fairly asymptomatic, take Tylenol or diclofenac gel as needed pain We discussed the patient the importance of pain management and treatment of URIs, to avoid atelectasis Acute maxillary sinusitis 09/23/2024 Assessment & Plan (09/23/2024 12:30 PM EDT): Drink plenty of fluids and rest Persistent cough 09/23/2024 Assessment & Plan (09/23/2024 12:31 PM EDT): In light of patient's immunocompromised state (she is s/p renal transplant) I decided to order CXR, she will be contacted with results Flu-like symptoms 07/04/2024 Assessment & Plan (07/04/2024 3:50 PM EDT): Rapid viral test are negative today Take Tylenol as needed for sore throat and Flonase for nasal congestion + nasal saline. Take herbal teas and gargles as needed for sore throat Postprandial abdominal pain in left upper quadra nt 11/06/2022 Epigastric pain 05/18/2022 Assessment & Plan (05/18/2022 11:04 AM EST): Most likely related to iron pills vs gastroparesis. r/o PUD. Refer to GI, [facility] does not accept patient's insurance. Will refer to [facility]. Counseled to drink [...] colonic polyp 03/24/2022 Overview (08/15/2023): Colonoscopy at [facility] on 03/15/22 (admitted due to rectal bleeding/ischemic colitis) Assessment & Plan (03/24/2022 2:50 PM EST): Resected. FU colonoscopy in 10y Deep vein thrombosis (DVT) o f brachial [...] at least until august and FU with escrow closer. We discussed avoid prolonged rest, ambulation with [...] mg daily. Jardiance held at admission. -Monitor [id number] glucose with meals and nightly, and every 6 hours when n.p.o. -Insulin sliding scale with meals and nightly -Lantus given just 5 units at bedtime -Uptitrate insulin after diet is advanced Assessment & Plan (10/03/2024 1:56 PM EDT): Uncontrolled, I will hold off on making medication adjustments that she will see endocrinology provider in 2 weeks. Advised to use Lantus and Humalog as prescribed Patient to follow-up with eye and LASIK clinic for routine ophthalmology evaluation Advised to have hepatitis B and RSV vaccines at earliest convenience Assessment & Plan (07/04/2024 3:48 PM EDT): Uncontrolled, likely needs Humalog adjusted for carb load. Continue Lantus 12 units and follow-up with ironworker, she is off Jardiance due to side effects. Discussed importance of having small and fractioned meals I will follow-up in 3 to 4 months Referral to [facility] ([facility]) She has been referred to order analyst for toenail trimming Assessment & Plan (08/15/2023 11:55 AM EDT): Controlled. A1c is at goal. Continue on Lantus 10 units she will lower to 8 units only if she has persistent blood sugar below 70. Counseled re more frequent low calorie/carb meals. Check fgstk 3x daily Encouraged physical activity as tolerated. FU in 3 months. F/u with ironworker Assessment & Plan (10/23/2022 5:09 PM EDT): [...] at goal. -She has follow up with Flight Engineer Inspector next month. -Continue humalog sliding scale + [...] status post renal transplant - fu with theater education teacher - continue on Prograf + Mycophenolate Assessment [...] low dose lisinopril and fu with me order processing clerk in 3 weeks Check potassium next week. 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 Continue Prolia every 6 months at endocrinology office We discussed with patient regarding risk of falls Backache 07/31/2017 Herpes labialis 03/09/2017 Herpesvirus infection 02/08/2017 Resolved Problems Problem Noted Date Diagnosed Date Resolved Date Pneumonia of right upper lob e due to infectious organism 10/03/2024 10/03/2024 Assessment & Plan (10/03/2024 1:56 PM EDT): Resolved COVID-19 12/04/2023 08/28/2024 Assessment & Plan (12/04/2023 4:58 PM EDT): [...] discussed -seek medical attention for worsening symptoms Diarrhea 10/23/2022 08/28/2024 Assessment & Plan (10/23/2022 5:09 PM EDT): Most likely food intolerance, she has history of ischemic colitis. counseled regarding propr hydartion, avoid complex carbohydrates and proteinloaded meals order labs GI note appreciated, next colonoscopy on 2027 UTI (urinary tract infection), bacterial 03/24/2022 10/03/2024 Assessment & Plan (03/24/2022 2:52 PM EST): Resolved with Bactrim Reconsult prn Cough 04/29/2018 10/03/2024 Hyperkalemia 07/06/2017 10/03/2024 Overview (12/04/2023): Last Assessment & Plan: Potassium 6.0 on arrival. ED management included insulin and IV fluids, with subsequent potassium down to 4.9 prior to admission. Lisinopril discontinued. Since 03/14, hyperkalemia resolved. Potassium now stable 4.5-4.6. Will monitor closely with Bactrim use. Encounters Date Type Department Care Team Description 12/01/2024 Orders Only GENERIC EXTERNAL DATA DEPARTMENT Provider, Generic External Data 11/03/2024 Refill [facility] [address] [place] [address] Ana María Bryan MD Primary insomnia 10/29/2024 Orders Only GENERIC EXTERNAL DATA DEPARTMENT Provider, Generic External Data 10/28/2024 Refill [facility] [address] [place] [address] Ana María Bryan MD 10/24/2024 11:20 AM EDT Office Visit [facility] [address] [place] [address] Kelly Conner NP Right hand pain (Primary Dx); Right shoulder pain, unspecified chronicity 10/24/2024 Travel 10/09/2024 Refill [facility] [address] [place], [place] [phone] Ana María Bryan MD Upper gastrointestinal bleeding 10/07/2024 Refill [facility] [address] [place] [address] Ana María Bryan MD Upper gastrointestinal bleeding 10/03/2024 11:30 AM EDT Office Visit [facility] [address] [place] [address] Ana María Bryan MD Type 2 diabetes mellitus with stage 3 chronic kidney disease, with long-term current use of insulin, unspecified whether stage 3a or 3b CKD ([facility]/HCC) (Primary Dx); Age-related osteoporosis with current pathological fracture, sequela; Closed fracture of multiple ribs of left side with delayed healing; Pneumonia of right upper lobe due to infectious organism; Bacteriuria 10/03/2024 Travel 09/26/2024 Refill [facility] [address] [place] [phone] Ana María Bryan MD 09/24/2024 Patient Outreach [facility] [address] [place] [address] Ana María Bryan MD Pre-visit Planning ([facility] screening completed on 06/25/2024) 09/23/2024 11:20 AM EDT Office Visit [facility] [address] [place] [address] Tracy Deng MD Cough in adult patient; Acute maxillary sinusitis, recurrence not specified; Persistent cough 09/23/2024 Results Follow-Up [facility] [address] [place] [address] Tracy Deng MD XR Chest 2 Views 09/21/2024 Refill [facility] [address] [place] [address] Ana María Bryan MD Type 2 diabetes mellitus with stage 3 chronic kidney disease, with long-term current use of insulin, unspecified whether stage 3a or 3b CKD ([facility]/HCC) 09/02/2024 Results Follow-Up [facility] [address] [place] [phone] Ana María Bryan MD BD DEXA Axial 08/31/2024 Refill [facility] [address] [place], [place] [phone] Ana María Bryan MD Hyperlipidemia, unspecified hyperlipidemia type; Iron deficiency anemia due to chronic blood loss from Last 3 Months Immunizations Immunization Administration Dates Next Due Hep B, adult [...] Sign Reading Time Taken Comments Blood Pressure 149/73 10/24/2024 11:23 AM EDT Pulse 70 10/24/2024 11:23 AM EDT Temperature 36.7 C (98.1 F) 10/24/2024 11:23 AM EDT Respiratory Rate 16 10/24/2024 11:23 AM EDT Oxygen Saturation 97% 10/24/2024 11:23 AM EDT Inhaled Oxygen Concentration - - Weight 49.4 kg (109 lb) 10/24/2024 11:23 AM EDT Height 144.8 cm (4' 9 ) 10/03/2024 11:16 AM EDT Body Mass Index 23.59 10/03/2024 11:16 AM EDT Plan of Treatment Health Maintenance Due Date Last Done Comments CT Colonography 1950 FIT DNA/Cologuard 1950 FIT 1950 FOBT 1950 Sigmoidoscopy 1950 Hepatitis C Screening 06/28/1967 Hepatitis B Vaccines (2 of 3 - 19+ 3-dose series) 05/02/2022 04/04/2022 RSV Patients and Patients Aged 60 years or older (1 - 1-dose 75+ series) 2024 COVID-19 Vaccine (2024- season) 2024 12/29/2022, 01/03/2022, 07/07/2021, Additional history exists Influenza Vaccine (#1) 2024 , 12/23/2021, 01/28/2021, Additional history exists Lipid Panel 12/31/2024 01/01/2024, 10/24/2022 Diabetes: Hemoglobin A1C 01/03/20252 025, 07/02/2024, 04/02/2024, Additional history exists SDOH Screening 06/25/2025 06/25/2024 Alcohol/Substance Use Screening 10/03/2025 10/03/2024 Depression Screening 10/03/2025 10/03/2024, 10/04/19 Diabetes: Foot Exam 10/03/2025 10/03/2024, 10/03/2024, 10/03/2024, Additional history exists Tobacco Screening 10/24/2025 10/24/2024 Eye Exam 11/20/2025 11/20/2024, 06/23/2021 DTaP/Tdap/Td Vaccines (2 - Td or Tdap) [...] WHOLE BLOOD Routine 12/01/2024 11:07 AM EDT AMB REFERRAL TO OPHTHALMOLOGY Routine 11/20/2024 Type 2 diabetes mellitus with stage 3 chronic kidney disease, with long-term current use of insulin, unspecified whether stage 3a or 3b CKD ([facility]) VITAMIN D,25-OH,TOTAL,IA Routine 10/29/2024 11:16 AM EDT ALBUMIN Routine 10/29/2024 11:16 AM EDT CALCIUM Routine 10/29/2024 11:16 AM EDT PTH, INTACT WITHOUT CALCIUM Routine 10/29/2024 11:16 AM EDT POCT GLYCATED HEMOGLOBIN, TOTAL Routine 10/03/2024 11:19 AM EDT Type 2 diabetes mellitus with stage 3 chronic kidney disease, with long-term current use of insulin, unspecified whether stage 3a or 3b CKD (CMS/HCC) POCT GLUCOSE Routine 10/03/2024 11:19 AM EDT Type 2 diabetes mellitus with stage 3 chronic kidney disease, with long-term current use of insulin, unspecified whether stage 3a or 3b CKD (CMS/HCC) POCT INFLUENZA B (ID NOW RAPID MOLECULAR) Routine 09/23/2024 11:44 AM EDT Cough in adult patient POCT INFLUENZA A (ID NOW RAPID MOLECULAR) Routine 09/23/2024 11:43 AM EDT Cough in adult patient POCT RAPID COVID ANTIGEN Routine 09/23/2024 11:32 AM EDT Cough in adult patient XR CHEST 2 VIEWS Routine 09/23/2024 11:1 6 AM EDT Persistent cough LIPID PANEL WITH REFLEX TO DIRECT LDL Routine 01/01/2024 10:37 AM EDT Type 2 diabetes mellitus with stage 3 chronic kidney disease, with long-term current use of insulin, unspecified whether stage 3a or 3b CKD (CMS/HCC) HM COLONOSCOPY Routine 03/15/2022 from Last 3 Months or Most Recently Relevant to Health Maintenance Results * Glucose, Whole Blood (12/01/2024 11:07 AM EDT) Glucose, Whole Blood 109 60 - 115 mg/dL [facility] Comment:METER #: [id number] 0Testing performed in the Endocrinology Department [address] , [address], [place]. 12/01/2024 11:0 7 AM EDT 12/01/2024 11:10 AM EDT us Generic External Data Provider LAB BLOOD ORDERAB LES Final Result [facility] [address] [place] [phone] * Vitamin D, 25-Hydroxy, Total, Immunoassay (10/29/2024 11:16 AM EDT) Vitamin D 25-OH Total 37.9 >30 ng/mL [facility] Comment: Health Based Reference Values*< 20 ng/mL [id number] ng/mL Insufficient> 30 ng/mL Sufficient*Carlos Manuel BERRY. N Engl J Med. 2007;357:266-280There [...] confirmed with another method such as LC-MS/MS. 10/29/2024 11:1 6 AM EDT 10/29/2024 11:16 AM EDT us Generic External Data Provider LAB BLOOD ORDERAB LES Final Result [facility] [address] [place] [phone] * (ABNORMAL) PTH, Intact Without Calcium (10/29/2024 11:16 AM EDT) Parathyroid Hormone, Intact 119.3(H) 8.7 - 77.1 pg/mL [facility] 10/29/2024 11:1 6 AM EDT 10/29/2024 11:16 AM EDT us Generic External Data Provider LAB BLOOD ORDERAB LES Final Result Performing Organization Address City/[facility] Co de Phone Number [facility] [address] [place] [phone] * Calcium (10/29/2024 11:16 AM EDT) Calcium 9.3 8.4 - 10.2 mg/dL [facility] 10/29/2024 11:1 6 AM EDT 10/29/2024 11:16 AM EDT us Generic External Data Provider LAB BLOOD ORDERAB LES Final Result Performing Organization Address [facility] Co de Phone Number [facility] [address] [place] [phone] * Albumin (10/29/2024 11:16 AM EDT) Albumin Level 4.0 3.5 - 5.0 g/dL [facility] 10/29/2024 11:1 6 AM EDT 10/29/2024 11:16 AM EDT Generic External Data Provider LAB BLOOD ORDERAB LES Final Result Performing Organization Address [facility] Co de Phone Number [facility] [address] [place] [phone] * (ABNORMAL) POCT HGB A1C (10/03/2024 11:19 AM EDT) Hemoglobin A1C 8.0(A) 4.0 - 5.7 % QC Media Lot # [id number] Lot# Expiration Date Blood 10/03/2024 11:1 9 AM EDT Ana María Bryan MD POINT OF CARE TEST ENTER /EDIT ORDERABLES Final Result * POCT Glucose (10/03/2024 11:19 AM EDT) Glucose Blood, POC 153 60 - 200 mg/dL Comment:Random QC Media Lot # [id number] Lot# Expiration Date Blood Capillary blood specimen / Unknown 10/03/2024 11:19 AM EDT Ana María Bryan MD POINT OF CARE TEST ENTER /EDIT ORDERABLES Final Result * Influenza B (ID NOW Rapid Molecular) (09/23/2024 11:44 AM EDT) Pathologist [facility] Influenza B Negative Negative, Indeterminate [facility] Swab 09/23/2024 11:4 4 AM EDT Tracy Mccarthy MD POINT OF CARE TEST EN TER/EDIT ORDERABLES Final Result Performing Organization Address [facility]/ZIP Co de Phone Number [facility] [address] [place] [phone] * Influenza A (ID NOW Rapid Molecular) (09/23/2024 11:43 AM EDT) Pathologist [facility] Influenza A Negative Negative, Indeterminate [facility] Swab 09/23/2024 11:4 3 AM EDT Tracy Mccarthy MD POINT OF CARE TEST EN TER/EDIT ORDERABLES Final Result Performing Organization Address [facility]/ZIP Co de Phone Number [facility] [address] [place] [phone] * POCT Rapid COVID Ag (09/23/2024 11:32 AM EDT) Rapid COVID Ag Negative Swab 09/23/2024 11:3 2 AM EDT Tracy Mccarthy MD POINT OF CARE TEST EN TER/EDIT ORDERABLES Final Result * XR Chest 2 Views (09/23/2024 11:16 AM EDT) Anatomical Region Laterality Modality Chest Radiographic [place] ging 09/23/2024 11:1 6 AM EDT Narrative 09/23/2024 12:34 PM EDT [address] [address] XRay Report Signed Patient: Sofiya Julian MR#: [id number] : 1950 Acct:[id number] Age/Sex: 74 / F ADM Date: 09/23/24 Loc: HO.HHCX Attending Dr: Tracy Mccarthy MD Ordering Physician: Tracy Degn MD Date of Service: 09/23/24 Procedure(s): XR chest 2V Accession Number(s): [id number] cc: Tracy Deng MD EXAMINATION: XR CHEST CLINICAL INFORMATION: perisitent cough, inmunocompromised patient COMPARISON: July 06, 2024 TECHNIQUE: 2 views of the chest were obtained. 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 Vascular calcifications present in the aortic arch. Pulmonary nodules and central calcifications are present, left greater than right. Somewhat linear basilar densities are present subsegmental atelectasis. There is a groundglass density in the mid right lung zone. There is trace fluid in the right major fissure and blunting of costophrenic angles on lateral x-ray. XR/XR chest 2V IMPRESSION: Possible right upper lobe lobe pneumonia and trace pleural effusions. Chronic posterior right sixth-ninth rib fractures. Electronically signed by: Les Mitchell MD 09/23/2024 12:31 PM EDT RP Dictated By: Les Mitchell MD Signed By: <Electronically signed by Les Mitchell MD in OV> 09/23/24 1231 DD/ 1116 TD/TT: 09/23/24 1200 Engine Maintenance Mechanic: Procedure Note Donotuseinterpreter, Image - 09/23/[address] [address] XRay Report Signed Patient: Sofiya Julian [facility]#: [id number] : 1950Acct:[id number] Age/Sex: 74 / FADM Date: 09/23/24 Loc: HO.HHCX Attending Dr: Tracy Mccarthy MD Ordering Physician: Tracy Deng MD Date of Service: 09/23/24 Procedure(s): XR chest 2V Accession Number(s): [id number] cc: Tracy Deng MD EXAMINATION: XR CHEST CLINICAL INFORMATION: perisitent cough, inmunocompromised patient COMPARISON: July 06, 2024 TECHNIQUE: 2 views of the chest were obtained. 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 Vascular calcifications present in the aortic arch. Pulmonary nodules and central calcifications are present, left greater than right. Somewhat linear basilar densities are present subsegmental atelectasis. There is a groundglass density in the mid right lung zone. There is trace fluid in the right major fissure and blunting of costophrenic angles on lateral x-ray. XR/XR chest 2V IMPRESSION: Possible right upper lobe lobe pneumonia and trace pleural effusions. Chronic posterior right sixth-ninth rib fractures. Electronically signed by: Les Mitchell MD 09/23/2024 12:31 PM EDT RP Dictated By: Les Mitchell MD Signed By: <Electronically signed by Les Mitchell MD in OV> 09/23/24 1231 DD/ 1116 TD/TT: 09/23/24 1200 Engine Maintenance Mechanic: us Tracy Mccarthy MD IMG XR PROCEDURES Fin al Result * Lipid Panel with Reflex to Direct LDL (01/01/2024 10:37 AM EDT) Triglycerides 97 <150 mg/dL [facility] Comment:Desirable Triglyceri de: less than 150 mg/dLBorderline High Triglyceride 150-199 mg/dLHigh Triglyceride: 200-499 mg/dLVery High Triglyceride: greater than or equal to 5OO mg/dL Cholesterol 138 <200 mg/dL [facility] Comment:Desirable Cholestero l: less than 200 mg/dLBorderline High Cholesterol: 200-239 mg/dLHigh Cholesterol: greater than 239 mg/dL LDL Cholesterol Calculated 61 <100 mg/dL [facility] Comment:Desirable LDL: less than 100 mg/dLNear Optimal/Above Optimal LDL: 110- 129 mg/dLBorderline High LDL: 130-159 mg/dLHigh LDL: 160-189 mg/dLVery High LDL: greater than or equal to 190 mg/dL HDL Cholesterol 58 >40 mg/dL [facility] Comment:Desirable HDL: great er than 40 mg/dL Note: This HDL assay may give artificially low results in patients with liver disease. Blood 01/01/2024 10:3 7 AM EDT 01/01/2024 11:26 AM EDT Ana María Bryan MD LAB BLOOD ORDERABLES Fin al Result [facility] [address] [place] [phone] * Hm Colonoscopy (03/15/2022) Colonoscopy Normal Normal Ana María Bryan MD HEALTH MAINTENANCE Final Result from Last 3 Months or Most Recently Relevant to Health Maintenance Insurance [facility] C3 [employer]UR[employer] ARIZA [facility] Care Teams Lubrication Supervisor Relationship Specialty Start Date End Date Ana María Bryan MD [address] [place] [phone] PCP - General Family Medicine 03/26/18
--- OUTSIDE RECORDS SUMMARY | 2024-12-01 13:05 | XMS_ITS | Encounter Summary ---
Author Organization [employer] Address [address] [facility] 7t [place] [address] Care Team Providers Care Security Operations Center Operator Name Role Phone Ana María Bryan MD Primary Care Provider + Encounter Details Date Type Department Care Team (Latest Contact Info) Description 05/25/2021 Abstract [facility] CONVERSIONS Dental, Provider, DDS Social History [...] on filedocumented in this encounter Care Teams Security Operations Center Operator Relationship Specialty Start Date End Date Ana María Bryan MD [address] [place] [address] PCP - General Family Medicine 03/26/18 documented as of this encounter
--- OUTSIDE RECORDS SUMMARY | 2024-12-01 13:05 | XMS_ITS | Encounter Summary ---
Author Organization [employer] Address [address] [facility] 7t [place] [address] Care Team Providers Care Diet Kitchen Cook Name Role Phone Ana María Bryan MD Primary Care Provider + Encounter Details Date Type Department Care Team (Late st Contact Info) Description 03/17/2022 Orders Only [facility] MEDICINE [address] [place] [address] Dary Nuno MD [address] [place] [address] Acute deep vein thrombosis (DVT) of proximal [...] Primary documented in this encounter Care Teams Diet Kitchen Cook Relationship Specialty Start Date End Date Ana María Bryan MD [address] [place] [address] PCP - General Family Medicine 03/26/18 documented as of this encounter
--- OUTSIDE RECORDS SUMMARY | 2024-12-01 13:05 | XMS_ITS | Clinical Summary ---
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 ([facility] V24, [facility] V28) 03/24/2022 Overview (07/21/2024): On Eliquis 5mg [...] meter and albuminuria creatinine ratio bet* ([facility], [facility] V28) 03/17/2022 Chronic kidney disease (CKD) stage G3a/A2, moderately decreased glomerular filtration rate (GFR) between 45-59 mL/min/1.73 square meter and albuminuria creatinine ratio bet* ([facility] V[facility], [facility] V28) 03/17/2022 Overview (07/21/2024): Last Assessment & [...] ordered Stage 3 chronic kidney disease ([facility] V24, [facility] V28) 03/17/2022 Overview (07/21/2024): Last Assessment [...] 03/17/2022 Gastrointestinal hemorrhage 03/17/2022 Diabetes mellitus ([facility] V[facility], [facility] V28) Overview (07/21/2024): Last Assessment & Plan: Patient normally takes a home regimen with combination oral agents and insulin. At home uses Humalog 3 times daily, 6 units before meals. Also takes Lantus at bedtime 8 units. In addition she takes Jardiance 25 mg daily. Jardiance held at admission. -Monitor dtgmc-qm-[id number] glucose with meals and nightly, and every [...] tolerated. FU in 3 months. 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 ([facility] V24, [facility] V28) 05/11/2020 Essential hypertension 05/11/2020 History of kidney transplant 05/11/2020 Overview (07/21/2024): Last Assessment & Plan: Patient takes tacrolimus and mycophenolate, confirm these doses with me and these meds will continue She also states that she was put on Plavix at the time of her transplant, she states she has never had an NH/stents or stroke and has never had any [...] 3 - 19+ 3-dose series) 05/02/2022 04/04/2022 Cholesterol Screening (Lipid Panel) 02/06/2024 Colorectal Cancer [...] Sugar Control Test (HGBA1C) 09/30/2024 04/02/2024, 05/31/2022 COVID-19 Vaccine ( season) 2024 12/29/2022, 01/03/2022, 07/07/2021, Additional history [...] age to complete this topic Insurance [address] [place], [place] [id number] [facility] [place] [id number] Care Teams Business Insurance Agent Relationship Specialty Start Date End Date Ana María Bryan MD [address] [place] [phone] PCP - General Internal Medicine 02/06/24
--- OUTSIDE RECORDS SUMMARY | 2024-12-01 13:05 | XMS_ITS | Encounter Summary ---
Author Organization [facility] Address [address] [facility] [address] [place] [phone] Phone Care Team Providers Care House Furnishings Supervisor Name Role Phone Ana María Bryan MD Primary Care Provider + Encounter Details Date Type Department Care Team (Late st Contact Info) Description 03/15/2022 Procedure Pass [facility] Admitting Dept Virtual Department [address] [place] [address] Social History Tobacco Use Types Packs/Day Years [...] on filedocumented in this encounter Care Teams House Furnishings Supervisor Relationship Specialty Start Date End Date Ana María Bryan MD [address] [place] [address] [place] [phone] PCP - General Internal Medicine 03/13/22 documented as of this encounter Additional Source Comments The information contained in this document represents components of the legal health record. It is not the complete legal health record.[facility]
--- OUTSIDE RECORDS SUMMARY | 2024-12-01 13:05 | XMS_ITS | Clinical Summary ---
Author Organization [facility] Address [address] [place] [phone] Phone Care Team Providers Care Chimney Builder Brick Name Role Phone Ana María Bryan MD Primary Care Provider [phone] Allergies Active Allergy Reactions Criticality Noted Date [...] misc 10/19/2020 Active Lancets (OneTouch Delica Plus [id number]) misc TEST BLOOD SUGAR 4 TIMES A [...] 1 tab in the evening 03/17/2022 Active amLODIPine (Norvasc) 2.5 MG tablet Take 1 tablet (2.5 mg total) by mouth at bed time 30 tablet 11 02/28/2024 02/28/20 25 Active tacrolimus (PROGRAF) 1 MG capsuleIndicati ons:Kidney replaced by transplant Take 3 capsules (3 mg total) by mouth 1 (one) time each day in the morning AND 2 capsules (2 mg total) 1 (one) time each day in the evening. 150 capsule 11 03/11/2024 03/11/20 25 Active predniSONE 5 MG tablet Take 1 tablet (5 mg total) by mouth 1 (one) time each day 30 tablet 11 07/09/2024 Active ferrous sulfate 325 (65 Fe) MG EC tabletIndicatio ns:Iron deficiency anemia, not otherwise specified TAKE 1 TABLET BY MOUTH TWICE DAILY IN THE MORNING AND IN THE EVENING 180 tablet 3 09/30/2024 Active lisinopril 5 MG tablet Take 1 tablet (5 mg total) by mouth 1 (one) time each day 90 tablet 10/09/2024 01/08/20 25 Active mycophenolate (MYFORTIC) 180 MG EC tablet TAKE 1 TABLET BY MOUTH TWICE DAILY IN THE MORNING AND IN THE EVENING 60 tablet 11 10/30/2024 Active Active Problems Problem Noted Date Diagnosed [...] mg daily. Jardiance held at admission. -Monitor uckkc-dh-qbvz glucose with meals and nightly, and every [...] tolerated. FU in 3 months. 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 [address] [facility] [address] [place] [address] Sloane Bonner [place] 10/30/2024 Refill [facility] [address] [place] [address] Bruce Galarza MD 10/09/2024 10:30 AM EDT Office Visit [facility] [address] [facility] [address] [place] [phone] Bruce Galarza MD Kidney transplant status (Primary Dx) 09/28/2024 Refill [facility] [address] [facility] [address] [place] [phone] Bruce Galarza MD Iron deficiency anemia, not [...] Office Visit [facility] [address] [facility] [address] [place] [address] Bruce Galarza MD [address] [facility] [address] [place] [address] Health Maintenance Due Date Last Done Comments Breast Cancer Screening 1950 Diabetes: Ophthalmology Exam 04/26/2020 Diabetes: Pedal Pulse Checked 04/26/2020 Diabetes: Sensory Foot Exam 04/26/2020 Diabetes: Visual Foot Exam 04/26/2020 Colonoscopy (Post-Transplant Patient) 05/11/2020 Mammogram (Post-Transplant Patient) 05/11/2020 Pelvic Exam (Post-Transplant Patient) 05/11/2020 Influenza Vaccine (#1) 2024 9, 02/23/2018, 12/21/2017, Additional history exists Diabetes: Hemoglobin A1C 01/03/2025 025, 07/02/2024, 04/02/2024, Additional history exists Pneumococcal [...] (09/30/2024 10:25 AM EDT) Result Comment [facility] Comment: Culture shows less than 10,000 colony forming units of bacteria per milliliter of urine. This colony count is not generally considered to be clinically significant. 09/30/2024 10:2 5 AM EDT 09/30/2024 us Bruce Galarza MD LAB MICROBIOLOGY - GENERAL OR DERABLES Final Result [facility] [address] [place] [address] * (ABNORMAL) Microscopic Examination (09/30/2024 10:25 AM EDT) WBC, Urine 6-10(A) 0 - 5 /hpf [facility] RBC, Urine None seen 0 - 2 /hpf [facility] Squamous Epithelial, Urine >10(A) 0 - 10 /hpf [facility] Casts None seen None seen /lpf [facility] Bacteria, Urine None seen None seen/Few [facility] 09/30/2024 10:2 5 AM EDT 09/30/2024 us Bruce Galarza MD LAB MICROBIOLOGY - GENERAL OR DERABLES Final Result [facility] [address] [place] [address] * (ABNORMAL) Urinalysis with microscopic (09/30/2024 10:25 AM EDT) Specific [place], Urine 1.018 1.005 - 1.030 [facility] [phone] pH Urine 5.5 5.0 - 7.5 [facility] Color, Urine Yellow Yellow [facility] Appearance Urine Clear Clear [facility] [phone] WBC Esterase Urine Trace(A) Negative [facility] Protein, Ur 1+(A) Negative/Tra ce [facility] Glucose, Ur Negative Negative [facility] Ketones, Urine Negative Negative [facility] Blood Urine Negative Negative [facility] Bilirubin Urine Negative Negative [facility] Urobilinogen Urine 0.2 0.2 - 1.0 mg/dL [facility] [phone] Nitrite, Urine Negative Negative [facility] [phone] Microscopic Examination See below: [facility] Comment:Microscopic was rachell cated and was performed. 09/30/2024 10:2 5 AM EDT 09/30/2024 us Bruce Galarza MD LAB URINE ORDERABLES Final Re sult [facility] [address] [place] [address] * Urine Culture (09/30/2024 10:25 AM EDT) Culture Result, Urine Final report [facility] 09/30/2024 10:2 5 AM EDT 09/30/2024 Comment:UC Bruce Galarza MD LAB URINE ORDERABLES Final Re sult [facility] [place] [address] [place] [address] * (ABNORMAL) Renal Function Panel (09/30/2024 10:25 AM EDT) Glucose 218(H) 70 - 99 mg/dL [facility] BUN 28(H) 8 - 27 mg/dL [facility] Creatinine 1.00 0.57 - 1.00 mg/dL [facility] eGFR CKD-EPI CR 2020 59(L) >59 mL/min/1.7 3 [facility] BUN/Creatinine Ratio 28 12 - 28 [facility] Sodium 139 134 - 144 mmol/L [facility] Potassium 4.6 3.5 - 5.2 mmol/L [facility] Chloride 98 96 - 106 mmol/L [facility] Bicarbonate (CO2) 22 20 - 29 mmol/L [facility] Calcium 10.7(H) 8.7 - 10.3 mg/dL [facility] Comment:Verified by repeat analysis Albumin 4.1 3.8 - 4.8 g/dL [facility] Phosphorus 3.8 3.0 - 4.3 mg/dL [facility] 09/30/2024 10:2 5 AM EDT 09/30/2024 Comment:UC Bruce Galarza MD LAB BLOOD ORDERABLES Final Re sult [facility] [address] [place] [address] * (ABNORMAL) Hemoglobin A1c (05/31/2022 10:19 AM EST) Hemoglobin A1C 6.8(H) (4.0-5.6) % [facility] Comment: MONITORING: In known diabetic patients, hemoglobin A1c targets should be discussed with health care provider. DIAGNOSTIC USE: The [place] Diabetes Association (ADA) and the World Health [...] Supplement 1 Testing performed or reported by [facility], a Service of [facility], [address] [place] [address] Carlene Prasad MD, Flat Hammerer [facility]# [id number] Blood specimen (specimen) Venous blood / Unknown 05/31/2022 10:19 AM EST 05/31/2022 10:20 AM EST us Olivia Trujillo MD LAB BLOOD ORDERABLES Final Resu lt [facility] from Last 3 Months or Most Recently Relevant to Health Maintenance Insurance [facility] ([id number]) [place] [address]/[facility] ([id number]) Care Teams Chimney Builder Brick Relationship Specialty Start Date End Date Ana María Bryan MD [address] [place] [phone] PCP - General 04/05/20
--- OUTSIDE RECORDS SUMMARY | 2024-12-01 13:05 | XMS_ITS | Encounter Summary ---
Author Organization [facility] Address [address] [facility] [address] [place] [phone] Phone Care Team Providers Care Airborne Missions Systems Name Role Phone Ana María Bryan MD Primary Care Provider + Encounter Details Date Type Department Care Team (Late st Contact Info) Description 03/13/2022 Procedure Pass [facility], Ct Scan - [address] [address] Social History Tobacco Use Types Packs/Day Years [...] on file documented as of this encounter Functional Status * Calculated C-SSRS Risk Score (Lifetime/Recent) Answer Date of Assessment Author No Risk Indicated 03/13/2022 11:08 AM Susannah Flores RN * [place] Suicide Severity Rating Scale (Screener/Recent Self-Report) Question Answer Date of Assessment Author 1. Wish to be (Past 1 Month) No 03/13/2022 11:08 AM Lilian Albright RN 2. Non-Specific Active Suicidal Thoughts (Past 1 Month) No 03/13/2022 11:08 AM Lilian Albright RN 6. Suicidal Behavior (Lifetime) No 03/13/2022 11:08 AM Lilian Albright RN documented as of this encounter Plan of Treatment Not on file documented as of this encounter Visit Diagnoses Not on filedocumented in this encounter Additional Health Concerns Infection Onset Date Last Indicated Resolved Time CoV-Risk Comment:Neg covid 03/13/2022 03/13/2022 03/14/2022 6:[address] documented as of this encounter Care Teams Airborne Missions Systems Relationship Specialty Start Date End Date Ana María Bryan MD [address] [place] [phone] PCP - General Internal Medicine 03/13/22 documented as of this encounter Additional Source Comments The information contained in this document represents components of the legal health record. It is not the complete legal health record.[facility]
--- OUTSIDE RECORDS SUMMARY | 2024-12-01 13:05 | XMS_ITS | Encounter Summary ---
Author Organization [employer] Address [address] [facility] 7t [place] [address] Care Team Providers Care Sap Technical Architect Name Role Phone Ana María Bryan MD Primary Care Provider + Reason for Visit * Reason Comments Med Refill Encounter Details Date Type Department Care Team ([facility] st Contact Info) Description 10/29/2023 Refill [facility] [address] [place] [address] Ana María Bryan MD [address] [place] [address] Primary insomnia Social History Tobacco Use Types [...] documented as of this encounter Care Teams Sap Technical Architect Relationship Specialty Start Date End Date Ana María Bryan MD [address] [place] [address] PCP - General Family Medicine 03/26/18 documented as of this encounter
--- OUTSIDE RECORDS SUMMARY | 2024-12-01 13:06 | XMS_ITS | Clinical Summary ---
Author Organization [facility] Address [address] [facility] [address] [place] [phone] Phone Care Team Providers Care Outplacement Consultant Name Role Phone Ana María Bryan MD Primary Care Provider + Allergies Active Allergy Reactions Criticality Noted Date Comments Diphenhydramine 05/11/2020 Other reaction(s): Other (see comments) Medications atorvastatin (LIPITOR) 80 MG tablet Take 80 mg by mouth daily. 1 Active gabapentin (NEURONTIN) 100 MG capsule Take 1 capsule by mouth nightly at bedtime. Active melatonin 5 mg Tab Take 5 mg by mouth nightly at bedtime. 1 Active tacrolimus (PROGRAF) 1 MG capsule Take 2 mg by mouth 2 (two) times a day. 1 Active aspirin 81 MG EC tablet Take 81 mg by mouth daily. Active empagliflozin (JARDIANCE) 25 mg tablet Take 25 mg by mouth every morning. Active insulin lispro (ADMELOG, HUMALOG) 100 unit/mL injection vial Inject 6 Units under the skin 3 (three) times a day before meals. Active cholecalciferol (VITAMIN D3) 25 MCG (1,000 unit) tablet Take 2,000 Units by mouth every morning. Active insulin glargine (LANTUS) 100 unit/mL injection vial Inject 8 Units under the skin nightly at bedtime. Active bisacodyl (DULCOLAX) 5 mg EC tablet Take 5 mg by mouth 2 (two) times a day. Active fluticasone propionate (FLONASE) 50 mcg/actuation nasal spray 1 spray by Nasal route daily as needed for rhinitis (cough). Active apixaban (ELIQUIS) 5 mg tabletIndicatio ns:deep venous thrombosis Take 2 tablets (10 mg total) by mouth 2 (two) times a day for 6 doses. Indications: blood clot in a deep vein of the extremities 12 tablet 2 Active mycophenolate sodium (MYFORTIC) [address] tablet Take 180 mg by mouth 2 (two) times a day. Active pantoprazole (PROTONIX) 40 MG tablet Take 1 tablet (40 mg total) by mouth 2 (two) times a day. 60 tablet 2 Active predniSONE (DELTASONE) 5 MG tablet Take 1 tablet (5 mg total) by mouth daily. 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 Placed on Eliquis and also takes aspirin and Plavix which were given to her post transplant. We will hold Eliquis as above defer to GI Patient has not taken Eliquis since yesterday morning History of renal transplant 03/24/2022 Assessment & Plan (03/24/2022 4:15 PM EST): Patient takes tacrolimus and mycophenolate, confirm these doses with me and these meds will continue She also states that she was put on Plavix at the time of her transplant, she states she has never had an MT/stents or stroke and has never had any type of vascular procedures, she does have a left upper extremity shunt I will hold aspirin and Plavix for the present time, defer to GI when to restart Symptomatic anemia 03/24/2022 Chronic kidney disease (CKD) stage G3a/A2, moderately decreased glomerular filtration rate (GFR) between 45-59 mL/min/1.73 square meter and albuminuria creatinine ratio between 30-299 mg/g 03/17/2022 Assessment & Plan (03/24/2022 4:23 PM EST): History of renal transplant Creatinine is at baseline, avoid nephrotoxic medications, BUN is slightly elevated Continue patient's tacrolimus and prednisone Mycophenolate was not listed last admission but patient and her family tell me she is taking this twice a day, this has been added to her med list and ordered Type 2 diabetes mellitus wit hout complication, with long-term current use of insulin 03/13/2022 Assessment & Plan (03/24/2022 4:20 PM EST): Continue insulin, will be n.p.o. after midnight we will give conservative dose along with sliding scale Assessment & Plan (03/15/2022 12:33 PM EST): Patient normally takes a home regimen with combination oral agents and insulin. At home uses Humalog 3 times daily, 6 units before meals. Also takes Lantus at bedtime 8 units. In addition she takes Jardiance 25 mg daily. Jardiance held at admission. -Monitor zeyld-ve-ctxx glucose with meals and nightly, and every 6 hours when n.p.o. -Insulin sliding scale with meals and nightly -Lantus given just 5 units at bedtime -Uptitrate insulin after diet is advanced Hypertensive disorder 03/13/2022 Assessment & Plan (03/15/2022 12:34 PM EST): Patient relatively hypotensive, with soft blood pressures prior to endoscopy. -Antihypertensives held including carvedilol, amlodipine and lisinopril. -Lisinopril also held due to hyperkalemia. -Monitor vital signs closely per unit protocol Neuropathy 03/13/2022 Assessment & Plan (03/14/2022 10:37 AM EST): Gabapentin continued nightly. Renal failure 03/13/2022 Assessment & Plan (03/14/2022 10:38 AM EST): History of transplant, well-functioning transplant in the right lower quadrant. Immunosuppressants continued, steroids continued. High cholesterol 03/13/2022 Rectal bleeding 03/13/2022 Assessment & Plan (03/24/2022 4:19 PM EST): Patient was diagnosed with ischemic colitis around 15 March, colonoscopy done on the showed scant clotted blood throughout the entire colon, localized area of moderately eroded friable and ulcerated mucosa found in ascending colon and cecum. Biopsy showed acute colitis ulceration and granulation tissue. Her hemoglobin stabilized in the hospital, patient states that she did have some bleeding after she was discharged and no bowel movement over the last few days. She was at a follow-up appointment and had labs done that showed a low hemoglobin. She has been having fatigue and some dyspnea on exertion She denies any abdominal pain or fever no leukocytosis today Plan is for serial CBCs, she is currently being transfused, continue PPI, GI consult, clear liquids now and n.p.o. after midnight. Hold aspirin Plavix and Eliquis Assessment & Plan (03/15/2022 12:30 PM EST): Patient presented with 1 episode of bright red blood per rectum. Now status post endoscopy with Dr. Gardner. Findings consistent with ischemic colitis, to be biopsy confirmed. Suspicion for infection with urine culture positive, likely contributing to hypotension and subsequent ischemic colitis. -Continue rehydration with normal saline 100 cc/h -Diet advanced to low fiber diet -Treat underlying infection -Aspirin and Plavix held until bleeding resolves -Serial CBC monitoring -Stool studies requested, negative with culture and C. difficile testing -PPI ordered IV BID -PT/OT when appropriate Leukocytosis 03/13/2022 Assessment & Plan (03/15/2022 12:32 PM EST): Now suspected to be due to possible UTI. Patient had no concerning symptoms on arrival but urine culture is positive and that seems to be the most likely source of infection. Hypotensive prior to arrival. Urine culture reviewed as above, positive for Klebsiella pneumonia infection. Sensitivities reviewed with the pharmacist to confirm appropriate antibiotic choice in the setting of prior renal transplant. Will treat with Bactrim twice daily with close monitoring of her potassium. Lisinopril has been discontinued. Additional potential sources of infection: -Minimal respiratory symptoms but patient does have a dry cough, chest x-ray requested for thoroughness -COVID and influenza swabs negative -CT abdomen pelvis clear, no abscess or source of infection identified -No skin source evident, no rashes -Continued CBC monitoring to watch leukocytosis Hyperkalemia 03/13/2022 Assessment & Plan (03/15/2022 12:32 PM EST): Potassium 6.0 on arrival. ED management included insulin and IV fluids, with subsequent potassium down to 4.9 prior to admission. Lisinopril discontinued. Since 03/14, hyperkalemia resolved. Potassium now stable 4.5-4.6. Will monitor closely with Bactrim use. Family History Medical History Relation Comments Hypertension Mother Diabetes Sister Relation Status Comments Mother Sister Social History Tobacco Use Types Packs/Day Years Used Date Smoking Tobacco: Never Smokeless Tobacco: Never Alcohol Use Standard Drinks/Week Comments Not Currently 0 (1 standard drink = 0.6 oz pur e alcohol) Education Answer Date Recorded Are you interested in more education? Not on otilio e 07/21/2022 Are you concerned about learning? Not on file 07/21/2022 No 07/21/2022 No 07/21/2022 Digital Access Answer Date Recorded No 08/22/2022 No 08/22/2022 Reliable internet access at home? Not on file 08/22/2022 Device with a working camera? Not on file Intimate Partner Violence Answer Date R ecorded Are you denied basic needs s uch as food, clothing, or medical care? No 03/24/2022 In the past 12 months have y ou been in a relationship with a person who hurts, threatens, or tries to control you? No 03/24/2022 Are you denied basic needs s uch as food, clothing, or medical care? No 03/24/2022 In the past 12 months have y ou been in a relationship with a person who hurts, threatens, or tries to control you? 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 Not on file Not on file Not on file Last Filed Vital Signs Vital Sign Reading Time Taken Comments Blood Pressure 169/69 03/25/2022 2:00 PM EST Pulse 80 03/25/2022 2:00 PM EST Temperature 36.5 C (97.7 F) 03/25/2022 2:00 PM EST Respiratory Rate 18 03/25/2022 2:00 PM EST Oxygen Saturation 98% 03/25/2022 2:00 PM EST Inhaled Oxygen Concentration - - Weight 53.9 kg (118 lb 13.3 oz) 03/25/2022 6:21 AM EST Height 144.8 cm (4' 9 ) 03/24/2022 1:33 PM EST Body Mass Index 25.71 03/24/2022 1:33 PM EST Plan of Treatment Health Maintenance Due Date Last Done Comments BLOOD PRESSURE 1950 DEPRESSION SCREENING 1961 HEPATITIS C SCREENING 06/28/1967 COLOGUARD 1994 FIT TEST 1994 FOBT 1994 SIGMOIDOSCOPY 1994 VIRTUAL COLONOSCOPY 1994 OSTEOPOROSIS SCREENING INITIAL (ONE-TIME) 2014 DIABETIC EYE EXAM 03/13/2022 HEMOGLOBIN A1C 08/21/2022 02/21/2022 RSV VACCINE (1 - 1-dose 75+ series) 2024 INFLUENZA VACCINE (#1) 2024 , 01/28/2021, 02/03/2020, Additional history exists COVID-19 VACCINE ( season) 2024 01/03/2022, 07/07/2021, 12/24/2020, Additional history exists Adult Td,Tdap Booster 03/09/2027 03/09/2017 COLONOSCOPY 03/15/2032 03/15/2022 COLORECTAL CANCER SCREENING 03/15/2032 PNEUMOCOCCAL VACCINES (50+ years) Completed 05/07/2018, 03/09/2017 ZOSTER VACCINES Completed 07/15/2018, 05/07/2018 SMOKING STATUS SCREENING (Once After 26 Yrs) Completed 03/13/2022 HEPATITIS A VACCINES Aged Out No long er eligible based on patient's age to complete this topic HIB VACCINES Aged Out No longer eligi ble based on patient's age to complete this topic MENINGOCOCCAL VACCINES (ACWY) Aged Out No longer eligible based on patient's age to complete this topic MENINGOCOCCAL VACCINES (B) Aged Out N o longer eligible based on patient's age to complete this topic Medical Devices Implanted Type Area Freight Coordinator Device Identifier Shelf Expiration Date Model / Serial / Lot Left Ankle Procedures Procedure Name Priority Date/Time Associated Diagnosis Comments ENDOSCOPY, COLON 03/15/2022 7:17 AM EST from Last 3 Months or Most Recently Relevant to Health Maintenance Results * ENDOSCOPY, COLON (03/15/2022 7:17 AM EST) Narrative Transcriptions Geovanni Gardner MD - 03/15/2022 7:17 AM EST Patient Name: Sofiya Regan Attending MD:: GEOVANNI GARDNER MD Procedure Date: 03/15/2022 7:17 AM Date of : 1950 Age: 71 Admit Type: Inpatient Gender: Female Room: [place] [address] Referring MD: Ana María Bryan MD Exam Type: Colonoscopy Indications: Hematochezia Medications: Monitored Anesthesia Care Procedure: Informed consent was obtained from the patientafter discussion of the indications, limitations, alternatives, benefits, and risks of the procedure. Risks specifically discussed include but are not limited to medication reactions, missed lesions, bleeding, perforation, or the need for emergent surgery. Throughout the procedure, the patient's blood pressure, pulse, end-tidal CO2, and oxygensaturations were monitored continuously. The Olympus adult variable colonoscope CF-[id number] #4 was introduced through the anus and advanced to the terminal ileum, with identification of theappendiceal orifice and IC valve. The colonoscopy was performed without difficulty. The patient tolerated the procedure well. The quality of the bowelpreparation was good. The terminal ileum, ileocecal valve, appendiceal orifice, and rectum werephotographed. Complications: No immediate complications. Estimated blood loss:None. Findings: The terminal ileum appeared normal. no significant blood in the ileum, just one tiny [place] right atthe inside of the valve, but deeper exploration of the ileum was clearly negative for blood. scant Clotted blood was found in the entirecolon. A localized area of moderately eroded, friable(with contact bleeding) and ulcerated mucosa was found in the ascending colon and in the cecum mostly alongthe anti-mesenteric aspect. This was biopsied with acold forceps for histology. A 3 mm polyp was found in the hepatic flexure. The polyp was sessile. The polyp was removed with acold snare. Resection and retrieval were complete. The exam was otherwise without abnormality. Impression: - The examined portion of the ileum was normal. - Eroded, friable (with contact bleeding) and ulcerated mucosa in the ascending colon and in the cecum. Biopsied. - One 3 mm polyp at the hepatic flexure, removedwith a cold snare. Resected and retrieved. - The examination was otherwise normal. Findings compatible with and most suggestive ofmild, right-sided, ischemic colitis, which should be confirmed with biopsies. Recommendation: - Await pathology results. - [facility] patient to [facility]. Continue supportive care. No specific therapy forthe ischemic colitis is required and spontaneous hemostasis is expected. continue investigation and management forunderlying cause of hypotension (r/o sepsis, etc) as ischemic colitis was more likely the consequence ofhypotension. Geovanni Gardner GEOVANNI GARDNER MD 03/15/2022 8:51:29 AM This report has been signed electronically. Number of Addenda: 0 Note Initiated On: 03/15/2022 7:17 AM Procedure Date: 03/15/2022 7:17:58 AM [address] [place] [address] us Ana María Bryan MD GI PROCEDURE ORDERABLES Final Result from Last 3 Months or Most Recently Relevant to Health Maintenance Insurance [facility] MEDICARE REPLACEMENT [place] [id number] [facility] MEDICARE REPLACEMENT [facility] MEDICARE REPLACEMENT [facility] MEDICARE REPLACEMENT [facility] MEDICARE REPLACEMENT [facility] MEDICARE REPLACEMENT [facility] MEDICARE REPLACEMENT [facility] MEDICARE REPLACEMENT [facility] MEDICARE REPLACEMENT Advance Directives For more information, please contact: [phone] (9AM - 5PM [facility], Sunday-Sunday) Documents on File Type Date Recorded Patient Online Banking Specialist Expl anation MOLST 03/22/2022 1:22 PM * Full Code (Latest Code Status on File) Date Activated Date Inactivated Comments 03/24/2022 5:08 PM Question Answer Comments Code Status Confirmed With: Patient * Full Code Date Activated Date Inactivated Comments 03/13/2022 5:52 PM 03/24/2022 5:08 PM Question Answer Comments Code Status Confirmed With: PatientFamily Care Teams Outplacement Consultant Relationship Specialty Start Date End Date Ana María Bryan MD [address] [place] [phone] PCP - General Internal Medicine 03/13/22 Additional Source Comments The information contained in this document represents components of the legal health record. It is not the complete legal health record.[facility]
== END 2024-12-01 11:38 | disposition home or self-care (01) ==
LOC: HO.ENCR 10:44
PROVIDERS: PCP Internal Medicine; Visit Provider Physician Assistant
DX: Z13.9 Encounter for screening, unspecified (principal); E11.65 Type 2 diabetes mellitus with hyperglycemia; E11.21 Type 2 diabetes mellitus with diabetic nephropathy; I10 Essential (primary) hypertension

== ENCOUNTER → 2024-12-01 10:44 | Outpatient (BNVA) | payer OTHER, SELFPAY | PROVIDERS: PCP Internal Medicine; Visit Provider Physician Assistant | DX: E11.21 Type 2 diabetes mellitus with diabetic nephropathy (principal); E11.65 Type 2 diabetes mellitus with hyperglycemia; I10 Essential (primary) hypertension; E78.5 Hyperlipidemia, unspecified; Z79.01 Long term (current) use of anticoagulants; Z94.0 Kidney transplant status; Z79.4 Long term (current) use of insulin; Z79.899 Other long term (current) drug therapy | CPT/HCPCS: 82947; 83036; 99212 ==

== ENCOUNTER 2024-12-31 12:13 | Outpatient (REF) | payer OTHER, SELFPAY ==
[2024-12-31 14:35] LABS: Anion Gap 11 (12-20); Blood Urea Nitrogen 30 mg/dL (9-16); Calcium 9.5 mg/dL (8.4-10.2); Carbon Dioxide 29 mmol/L (22-29); Chloride 105 mmol/L (96-108); Estimated Glomerular Filt Rate > 60; Potassium 4.6 mmol/L (3.3-5.1); Sodium 140 mmol/L (135-145)
== END 2024-12-31 12:14 | disposition home or self-care (01) ==
LOC: HO.LAB 12:13
PROVIDERS: PCP Internal Medicine; Visit Provider Internal Medicine Endocrinology, Diabetes & Metabolism
DX: M81.0 Age-related osteoporosis without current pathological fracture (principal)
CPT/HCPCS: 36415; 80048

== ENCOUNTER 2025-01-06 10:47 | Outpatient (AMB) | payer OTHER, SELFPAY ==
--- NOTE | 2025-01-06 11:53 | AM.OFFVISNUR ---
Intake Visit Reasons: Prolia Allergies diphenhydramine (From Benadryl) Adverse Reaction (Verified 12/01/24 11:05) Anxiety Office Meds Prolia 60 mg/mL subcutaneous syringe Performing Provider: Julius Pelletier [place] [facility] [place] Administered by: Machelle Phillips RN on 01/06/25 11:53 Dose Route Admin Location Dispensed Lot Number Expiration Date NDC Portable Machine Sander 60 mg subcut right upper arm 1 mL [id number] 11/23/26 74777-607-98 [facility] Total Dispensed Waste 1 mL 0 % Comments: Pt was accompanied by daughter who interpreted visit. Pt declined buggy operator. No adverse reactions reported from previous injection. Pt tolerated injection well. Pt scheduled in 6 months for next injection appt. No further questions at this time. Assessment & Plan Assessment & Plan Orders: Orders AMB Denosumab Injection Practice Supplied Today M81.0 - Age-related osteoporosis without current pathological fracture Coding
== END 2025-01-06 11:52 | disposition home or self-care (01) ==
LOC: HO.ENCR 10:47
PROVIDERS: PCP Internal Medicine; Visit Provider Internal Medicine Endocrinology, Diabetes & Metabolism
DX: M81.0 Age-related osteoporosis without current pathological fracture (principal)

== ENCOUNTER → 2025-01-06 10:47 | Outpatient (BNVA) | payer OTHER, SELFPAY | PROVIDERS: PCP Internal Medicine; Visit Provider Internal Medicine Endocrinology, Diabetes & Metabolism | DX: M81.0 Age-related osteoporosis without current pathological fracture (principal) | CPT/HCPCS: 96372; J0897 ==

== ENCOUNTER 2025-01-20 13:15 | Emergency (ER) | payer OTHER, SELFPAY ==
--- OUTSIDE RECORDS SUMMARY | 2025-01-19 14:00 | XMS_ITS | Encounter Summary ---
Author Organization [employer] Address [address] [facility] [address] [place] [address] Care Team Providers Care Supervisor Plating And Point Assembly Name Role Phone Ana María Bryan MD Primary Care Provider + Reason for Visit * Reason Comments Foot Pain Encounter Details Date Type Department Care Team (Late st Contact Info) Description 01/19/2025 2:00 PM EDT Office Visit [facility] [address] [place] [address] Candida Benites FNP [address] [place] [address] Social History Tobacco Use Types Packs/Day Years [...] Sign Reading Time Taken Comments Blood Pressure 142/68 01/19/2025 1:20 PM EDT Pulse 82 01/19/2025 1:20 PM EDT Temperature 36.6 C (97.9 F) 01/19/2025 1:20 PM EDT Respiratory Rate 17 01/19/2025 1:20 PM EDT Oxygen Saturation - - Inhaled Oxygen Concentration - - Weight 50.3 kg (111 lb) 01/19/2025 1:20 PM EDT Height 144.8 cm (4' 9 ) 01/19/2025 1:20 PM EDT Body Mass Index 24.02 01/19/2025 1:20 PM EDT documented in this encounter Plan of Treatment Upcoming Encounters Date Type Department Care Team (Late st Contact Info) Description 01/23/2025 11:00 AM EDT Immunization [facility] [address] [place] [phone] 04/01/2025 10:15 AM EST Office Visit [facility] [address] [place] [phone] Ana María Bryan MD [address] [place] [address] documented as of this encounter Visit Diagnoses Not on filedocumented in this encounter Additional Health Concerns Assessment Noted Time PHQ-9 Depression Total Score: 0 10/04/19 25 11:18 AM EDT documented as of this encounter Care Teams Supervisor Plating And Point Assembly Relationship Specialty Start Date End Date Ana María Bryan MD [address] [place] [address] PCP - General Family Medicine 03/26/18 documented as of this encounter
--- NOTE | ~2025-01-20 | XR_ITS ---
EXAMINATION: XR CALCANEUS 2 VIEWS BILATERAL HISTORY: R > L tender atraumatic calcanei COMPARISON: Previous x-ray of the right foot from earlier the same day and left foot December 2023 FINDINGS: Right: No x-ray evidence of osteomyelitis. Osteopenia. Bone alignment is normal. No fracture or dislocation. Calcaneal spurs. Severe soft tissue arterial calcification. No abnormal air in the soft tissues or foreign body. Left: No x-ray evidence of osteomyelitis. Osteopenia. Partially visualized surgical hardware in the distal tibia and fibula. Bone alignment is normal. No fracture or dislocation. Calcaneal spurs. Severe soft tissue arterial calcification. No abnormal air in the soft tissues or soft tissue foreign body. XR/XR Calcaneus Chavo min 2V IMPRESSION: No x-ray evidence of osteomyelitis. Electronically signed by: Roxana Fallon MD 01/20/2025 03:45 PM EDT
--- NOTE | ~2025-01-20 | XR_ITS ---
EXAMINATION: XR FOOT, RIGHT CLINICAL INFORMATION: gangrene ulcers. osteo? COMPARISON: None available. TECHNIQUE: AP, lateral, and oblique views of the right foot. FINDINGS: Osteopenia. Bone alignment is normal. No fracture or dislocation. Small erosion along the ulnar side of the proximal phalanx of the fifth toe at the PIP joint. Question degenerative versus osteomyelitis. Mild degenerative changes at the first MTP and MTT joint.s Calcaneal spurs. Severe soft tissue arterial calcification. No foreign body or air in the soft tissues. XR/XR foot RT min 3V IMPRESSION: Erosive changes of the proximal phalanx of the fifth toe at the PIP joint. Question early osteomyelitis. Clinical correlation recommended. While degenerative changes. Large calcaneal spurs. Severe atherosclerotic disease. Electronically signed by: Roxana Fallon MD 01/20/2025 03:41 PM EDT
[2025-01-20 13:43] VITALS: BP 173/71; PULSE 80; RESP 18; TEMP 36.1; O2SAT 97; BMI 24.0
--- NOTE | 2025-01-20 13:50 | ED.GENADULT ---
HPI - General Adult General Chief complaint: Extremity Problem Stated complaint: Discoloration in toes Time Seen by Provider: 01/20/25 14:30 History of Present Illness ED Provider: Vasyl Alarcon MD HPI narrative: This is pleasant 74-year-old female with diabetes, end-stage renal disease status post renal transplant follow up by [facility] renal transplant Nephrology. She has about 2 months of scabbing pain in the distal right big toe after cutting her nail and describing what is sounds like a ingrown toenail she was taking topical antibiotics and oral antibiotics months ago for this and that improved and dried out. About 2 weeks ago she cut the toenail on the 4th digit and has had pain and worsening swelling pain and scabbing since that time. Patient also complains of atraumatic heel pain right greater than left without traumatic injuries. No redness or streaking up the leg. Related Data Home Medications ?Medication ?Instructions ?Recorded ?Confirmed docusate sodium 100 mg capsule 100 mg PO BID 03/30/20 08/04/24 mycophenolate sodium 180 mg 180 mg PO BID 03/30/20 08/04/24 tablet,delayed release pantoprazole 40 mg tablet,delayed 40 mg PO DAILY 03/30/20 08/04/24 release prednisone 5 mg tablet 5 mg PO DAILY 03/30/20 08/04/24 tacrolimus 1 mg capsule, 3 mg PO BID 03/30/20 08/04/24 immediate-release gabapentin 100 mg capsule 100 mg PO DAILY 06/21/20 08/04/24 acetaminophen 500 mg tablet 500 mg PO NEEDED PRN Pain 10/01/20 08/04/24 fluticasone propionate 50 1 - 2 spray intranasal DAILY PRN 12/07/21 08/04/24 mcg/actuation nasal Allergy Symptoms spray,suspension apixaban 5 mg tablet (Eliquis) 5 mg PO DAILY 04/19/22 08/04/24 ascorbic acid (vitamin C) 500 mg 500 mg PO QAM 04/19/22 08/04/24 tablet (Vitamin C) lisinopril 2.5 mg tablet 2.5 mg PO QAM 07/31/22 08/04/24 ferrous sulfate 325 mg (65 mg 325 mg PO BID 09/01/22 08/04/24 iron) tablet,delayed release melatonin 5 mg tablet 5 mg PO BEDTIME 09/01/22 08/04/24 trazodone 100 mg tablet 200 mg PO BEDTIME PRN 09/01/22 08/04/24 molnupiravir 200 mg capsule (EUA) mg PO 01/02/24 08/04/24 (Lagevrio) Previous Rx's ?Medication ?Instructions ?Recorded blood sugar diagnostic (OneTouch #150 ea 10/01/20 Verio test strips) pen needle, diabetic 32 gauge x #100 ea 10/01/20 (BD Florencia 2nd Gen Pen Needle) atorvastatin 80 mg tablet 80 mg PO BEDTIME #90 tabs 12/10/20 blood-glucose meter (OneTouch #1 ea 12/07/21 Verio Flex Meter) lancets 33 gauge (OneTouch Delica ##100 07/12/22 Plus Lancet) cefuroxime axetil 500 mg tablet 500 mg PO BID 7 days #14 tabs 07/06/24 oxycodone 5 mg tablet 5 mg PO Q6H PRN pain #20 tabs 07/06/24 blood-glucose sensor (Dexcom G7 #3 ea 08/04/24 Sensor device) glucose 4 gram chewable tablet 16 g (4 x 4 gram) PO Q15M PRN 08/04/24 (Dex4 Glucose) hypoglycemia #100 tabs insulin glargine 100 unit/mL (3 10 unit (0.1 mL) subcut QPM #15 mL 08/04/24 mL) subcutaneous pen (Lantus Solostar U-100 Insulin) insulin lispro 100 unit/mL 2 - 6 unit (0.02 - 0.06 mL) subcut 08/04/24 subcutaneous pen (Humalog KwikPen TID #15 mL (U-100) Insulin) cholecalciferol (vitamin D3) 25 50 mcg (2 x 25 mcg (1,000 unit)) 11/26/24 mcg (1,000 unit) capsule (Vitamin PO QAM #60 caps D3) amoxicillin 875 mg-potassium 1 tab PO BID 7 days #14 tabs 01/20/25 clavulanate 125 mg tablet mupirocin 2 % topical ointment 1 appl topical BID #15 grams 01/20/25 Allergies Allergy/AdvReac Type Severity Reaction Status Date / Time diphenhydramine (From AdvReac Anxiety Verified 01/20/25 13:48 Benadryl) [facility] Past Medical History Medical History Vitamin D deficiency Hypertension Osteoporosis Diabetic retinopathy associated with type 2 diabetes mellitus Diabetic nephropathy associated with type 2 diabetes mellitus MCC (current) use of insulin Dyslipidemia Diabetes type 2, uncontrolled Surgical History History of esophagogastroduodenoscopy (EGD) Hx of colonoscopy Hx of section Hx of tonsillectomy Hx of arteriovenostomy for renal dialysis History of renal transplant Family History Family History Father No problems noted. Mother No problems noted. Sister Breast cancer Diabetes Maternal Aunt Cancer Maternal Uncle Cancer Social History Social History Household Members: Spouse Alcohol intake: never Patient Tobacco Use Status: Never used Tobacco Advance Directives: No Advance Directives Information Provided: Yes service: No Current occupational status: retired Gender identity: Female Physical Exam ED Exam Exam: EXAM: Gen: Alert, awake, well appearing, well hydrated. Frail, Swedish speaking daughter at the bedside Head: Atraumatic Eyes: Anicteric, Normal conjunctiva. ENT: Moist mucosa, no pallor. ? Neck: Supple. Skin: ?No observable rash or bruising on exposed or examined skin Respiratory: Breathing comfortably, No distress.Clear to auscultation bilaterally, symmetric chest expansion, No wheeze, rales, ronchi. Cardiovascular: Regular rate and rhythm. No murmurs or rub. Well perfused periphery, warm extremities. No edema. ? Abdominal: No focal tenderness. Soft, no objective distension. No palpable masses or obvious organomegaly. ?No guarding, no rebound tenderness or other peritoneal findings. : No flank tenderness. Neuro: Alert. Gross movement of all extremities intact. ? Psych: Calm. Cooperative. MSK: No grossly visible deformity. Chronic appearing scabbed lesions at the distal aspect of the 1st and 4th toe. Fourth toe has some tenderness and perhaps very minimal erythema looks like there maybe some subcutaneous purulence but I am unable to express any Vital signs: See flowsheet Vital Signs: Vital Signs - 24 hr 01/20/25 13:43 01/20/25 14:54 01/20/25 15:32 Temperature 97 F 98.6 F Pulse Rate 80 72 72 Respiratory Rate 18 14 14 Blood Pressure 173/71 H 170/61 H 148/66 H Pulse Oximetry 97 98 97 Oxygen Delivery Method Room Air Room Air Room Air 01/20/25 17:16 Temperature 98.6 F Pulse Rate 72 Respiratory Rate 14 Blood Pressure 148/66 H Pulse Oximetry 97 Oxygen Delivery Method Room Air BMI result Body Mass Index 24.0 Course Course Course Narrative: 74 yold female with pmh of DM and kidney transplant presents tot he ED for right 1st and 3rd toe dry gangrene wounds with erythema. positive for pedal pulses right lower extremity. Warm to touch. labs and xrays ordered. Medications Administered Discontinued Medications Generic Name Dose Route Start Last Admin Trade Name Freq PRN Reason Stop Dose Admin Amoxicillin/Clavulanate Potassium 875 mg 01/20/25 16:38 01/20/25 17:03 Amoxicillin/Potassium Clav 875 Mg Tablet PO 01/20/25 16:39 875 mg ONCE ONE Administration Medical Decision Making Medical Decision Making MDM Narrative: Medical Decision Makin-year-old female with several weeks of scabbing lesions to the 1st and 4th toe distally. Well-perfused foot no streaking or lymphangitis up the leg. Patient unable to walk mainly because of bilateral calcaneal pain unclear what this is from or whether this is new. No distinct or described injury. No calcaneal fractures there are bone spurs on each of these which maybe bothering her could be plantar fasciitis as well no clinical suggestion of deep space foot infection. These do not look like ischemic lesions these are secondary to clipping her nails and likely developing ingrown toenail which may have been subsequently infected. No signs of osteomyelitis at the areas of these told lesions. X-ray likely over reading found an area of the 4th proximal digit that may have erosions but she has no symptoms there doubt this is osteomyelitis Preliminary Favored Differential Diagnosis: Scabbing, cellulitis, diabetic foot lesions, less likely osteomyelitis among additional considered etiologies Testing Interpreted Independently: ?X-ray no gas no fracture of the calcaneus Radiology or Lab testing Results Reviewed: ?See below for details Consults: ?See below for details Independent Historians/External Chart Reviews: ?See below for details Social Determinants of Health Impacting MDM/Planning: ?See below for details Lab Data 01/20/25 14:10 01/20/25 14:10 Labs: Lab Results 01/20/25 Range/Units 14:10 WBC 12.1 H (4.8-10.8) X10*3/uL RBC 3.99 L (4.20-5.50) X10*6/uL Hgb 12.2 (12.0-16.0) g/dl Hct 37.8 (37.0-47.0) % MCV 94.7 (80.0-98.0) fL MCH 30.6 (27.0-33.0) pg MCHC 32.3 (31.0-35.0) g/dl RDW 16.9 H (11.0-16.0) % Plt Count 234 (160-400) X10*3/uL MPV 11.9 (9.4-12.3) fL Immature Gran % (Auto) 0.5 H (0.0-0.4) % Neut % (Auto) 85.6 H (45-73) % Lymph % (Auto) 9.5 L (20-40) % Millard % (Auto) 3.8 (2-11) % Eos % (Auto) 0.3 (0-4) % Baso % (Auto) 0.3 (0-2) % Lymph # (Auto) 1.2 (1.2-4.9) X10*3/uL Millard # (Auto) 0.5 (0.1-1.2) X10*3/uL Eos # (Auto) 0.0 (0.0-0.4) X10*3/uL Baso # (Auto) 0.0 (0.0-0.2) X10*3/uL Abs Immat Gran (auto) 0.06 H (0.00-0.03) X10*3/uL Absolute Neuts (auto) 10.3 H (2.0-8.3) x10*3/uL Absolute Nucleated RBC 0.000 (0.0-0.012) X10*3/uL Nucleated RBC % (auto) 0.0 (0.0-0.2) /100WBC ESR 17 (0-20) MM/HR Sodium 140 (135-145) mmol/L Potassium 4.7 (3.3-5.1) mmol/L Chloride 110 H (96-108) mmol/L Carbon Dioxide 23 (22-29) mmol/L Anion Gap 12 (12-20) BUN 40 H (9-16) mg/dL Creatinine 1.08 (0.5-1.4) mg/dL Estim Creat Clear Calc 30.7 Estimated GFR 49 Random Glucose 137 H (60-115) mg/dL Lactic Acid 1.4 (0.5-2.0) mmol/L Calcium 9.3 (8.4-10.2) mg/dL Total Bilirubin 0.5 (0.0-1.0) mg/dL AST 32 H (5-31) U/L ALT 24 (0-31) U/L Alkaline Phosphatase 56 (39-117) U/L C-Reactive Protein 0.41 (< or = 0.50) mg/dL Total Protein 7.5 (6.5-8.0) g/dL Albumin 4.1 (3.5-5.0) g/dL Discharge Plan Discharge Clinical Impression: Infection of toe, Calcaneal spur Patient Disposition: Home, Self-Care Instructions: Wound Infection (DC), Heel Spur (ED) Additional Instructions: DISCHARGE DIAGNOSES: Infection of the 4th distal toe in the right foot Heel spur HISTORY OF PRESENTATION: ?Scabbing and crusting and pain of the foot as well as pain in the heel region of both feet EMERGENCY DEPARTMENT COURSE,TESTS, TREATMENTS: While in the ED today you had x-rays of the heels of both feet with signs of arthritis and bone spurs which are chronic bone changes No severe sign of severe or systemic infection was identified DISCHARGE MEDICATIONS: ?[We have made no changes to your regular medication regimen] we have prescribed an antibiotic ointment to be applied to the 1st and 4th digit on the right foot over the areas of infection twice per day and and new oral antibiotic FOLLOW-UP: ?Call your primary or general physician soon as possible to discuss your symptoms, your ED visit and to discuss follow up plans Call your primary doctor your feet should be reassessed in several days INSTRUCTIONS ?& RETURN PRECAUTIONS: If any symptoms change first call your primary physician, if it is after-hours your primary doctors office should have a provider communications scientist you can speak with. If the symptoms are severe or very concerning to you then call 911 or return to the ED. [07] Vasyl Alarcon MD Emergency Physician [facility] Prescriptions: New amoxicillin-pot clavulanate 875-125 mg tablet 1 tab PO BID 7 Days Qty: 14 0RF mupirocin 2 % ointment 1 appl topical BID Qty: 15 0RF No Action atorvastatin 80 mg tablet 80 mg PO BEDTIME Qty: 90 1RF (DME) lancets [OneTouch Delica Plus Lancet] 33 gauge misc See Rx Instructions .ROUTE .COMPLEX Qty: 100 8RF Dose Instruction: TEST BLOOD SUGAR 4 TIMES A DAY Rx Instructions: TEST BLOOD SUGAR 4 TIMES A DAY cholecalciferol (vitamin D3) [Vitamin D3] 25 mcg (1,000 unit) capsule 50 mcg PO QAM Qty: 60 11RF lisinopril 2.5 mg tablet 2.5 mg PO QAM oxycodone 5 mg tablet 5 mg PO Q6H PRN (Reason: pain) Qty: 20 0RF Rx Instructions: Partial Fill upon patient request. cefuroxime axetil 500 mg tablet 500 mg PO BID 7 Days Qty: 14 0RF mycophenolate sodium 180 mg tablet,delayed release (DR/EC) 180 mg PO BID tacrolimus 1 mg capsule 3 mg PO BID docusate sodium 100 mg capsule 100 mg PO BID pantoprazole 40 mg tablet,delayed release (DR/EC) 40 mg PO DAILY prednisone 5 mg tablet 5 mg PO DAILY gabapentin 100 mg capsule 100 mg PO DAILY acetaminophen 500 mg tablet 500 mg PO NEEDED PRN (Reason: Pain) (DME) OneTouch Verio test strips Strip See Rx Instructions .MEDSUPPLY Qty: 150 4RF Rx Instructions: 4 times in day (DME) pen needle, diabetic [BD Florencia 2nd Gen Pen Needle] 32 gauge x 5/32 needle See Rx Instructions .MEDSUPPLY Qty: 100 4RF Rx Instructions: twice a day fluticasone propionate 50 mcg/actuation spray,suspension 1 - 2 spray intranasal DAILY PRN (Reason: Allergy Symptoms) (DME) blood-glucose meter [OneTouch Verio Flex meter] Misc See Rx Instructions .Route Qty: 1 0RF Rx Instructions: As directed Eliquis 5 mg tablet 5 mg PO DAILY ascorbic acid (vitamin C) [Vitamin C] 500 mg tablet 500 mg PO QAM Lagevrio (EUA) 200 mg capsule PO ferrous sulfate 325 mg (65 mg iron) tablet,delayed release (DR/EC) 325 mg PO BID melatonin 5 mg tablet 5 mg PO BEDTIME trazodone 100 mg tablet 200 mg PO BEDTIME PRN (DME) Dexcom G7 Sensor Device See Rx Instructions .ROUTE .MEDSUPPLY Qty: 3 5RF Rx Instructions: Use daily As directed to monitor glucose. change q 10 days insulin lispro [Humalog KwikPen Insulin] 100 unit/mL insulin pen 2 - 6 unit subcut TID Qty: 15 5RF insulin glargine [Lantus Solostar U-100 Insulin] 100 unit/mL (3 mL) insulin pen 10 unit subcut QPM Qty: 15 5RF glucose [Dex4 Glucose] 4 gram tablet,chewable 16 g PO Q15M PRN (Reason: hypoglycemia) Qty: 100 0RF Rx Instructions: until symptoms of low blood sugar are controlled Interventions: ED Discharge Assessment Last Done: 01/20/25 17:16 Discharge Date/Time: 01/20/25 17:17 Print Language: Swedish
[2025-01-20 14:20] LABS: MANUAL DIFF FLAG NO
[2025-01-20 14:24] LABS: Hematocrit 37.8 % (37.0-47.0); Hemoglobin 12.2 g/dl (12.0-16.0); Imm Gran Abs Auto 0.06 X10*3/uL (0.00-0.03); Imm Gran Pct Auto 0.5 % (0.0-0.4); Lymphocytes Absolute Auto 1.2 X10*3/uL (1.2-4.9); Mean Corpuscular HGB Conc 32.3 g/dl (31.0-35.0); Mean Corpuscular Hemoglobin 30.6 pg (27.0-33.0); Mean Corpuscular Volume 94.7 fL (80.0-98.0); NRBC Abs Auto 0.000 X10*3/uL (0.0-0.012); NRBC Pct Auto 0.0 /100WBC (0.0-0.2); Platelet Count 234 X10*3/uL (160-400); Red Blood Count 3.99 X10*6/uL (4.20-5.50); White Blood Count 12.1 X10*3/uL (4.8-10.8)
[2025-01-20 14:36] LABS: Alanine Aminotransferase 24 U/L (0-31); Albumin Level 4.1 g/dL (3.5-5.0); Alkaline Phosphatase 56 U/L (39-117); Anion Gap 12 (12-20); Aspartate Amino Transferase 32 U/L (5-31); Blood Urea Nitrogen 40 mg/dL (9-16); Calcium 9.3 mg/dL (8.4-10.2); Carbon Dioxide 23 mmol/L (22-29); Chloride 110 mmol/L (96-108); Creatinine Clr Calc Pharmacy 30.7; Estimated Glomerular Filt Rate 49; Potassium 4.7 mmol/L (3.3-5.1); Sodium 140 mmol/L (135-145); Total Protein 7.5 g/dL (6.5-8.0)
--- NOTE | 2025-01-20 14:50 | PC.NURSE ---
Provider in to eval pt Pt states for two months right great toe has been in pain with a sore present on tip, right 4th toe has been painful X2 weeks and is red. Pt is mostly c/o pain in bilat heels right worse than left. Bilat feet warm with pos palp pulses. both elevated on pillow to help relieve heel pain. Pt in NAD other jimenez. Connected to 1/2 monitor at this time. Pt has left arm av fistula that she states she no longer uses because she nova shad a successful renal transplant. Family at bedside.
[2025-01-20 14:54] VITALS: BP 170/61; PULSE 72; RESP 14; O2SAT 98
[2025-01-20 15:11] LABS: Erythrocyte Sedimentation Rate 17 MM/HR (0-20)
[2025-01-20 15:32] VITALS: BP 148/66; PULSE 72; RESP 14; TEMP 37; O2SAT 97
--- NOTE | 2025-01-20 16:06 | PC.NURSE ---
dry scabbed wounds right great and 4th toes. tender heels beatriz R>L otherwise no complaints
[2025-01-20 17:16] VITALS: BP 148/66; PULSE 72; RESP 14; TEMP 37; O2SAT 97
--- OUTSIDE RECORDS SUMMARY | 2025-01-20 19:04 | XMS_ITS | Encounter Summary ---
Author Organization [employer] Address [address] [facility] [address] [place] [address] Care Team Providers Care Income Tax Analyst Name Role Phone Ana María Bryan MD Primary Care Provider + Reason for Visit * Reason Comments Med Refill Encounter Details Date Type Department Care Team ([facility] st Contact Info) Description 10/29/2023 Refill [facility] [address] [place] [address] Ana María Bryan MD [address] [place] [address] Primary insomnia Social History Tobacco Use Types [...] Info) Description 01/23/2025 11:00 AM EDT Immunization [address] [id number] 04/01/2025 10:15 AM EST Office Visit [address] [address] Ana María Bryan MD [address] [place] [phone] documented as of this encounter Visit Diagnoses Diagnosis Primary insomnia Persistent disorder of initiating or maintaining sleep documented in this encounter Additional Health Concerns Assessment Noted Time PHQ-9 Depression Total Score: 1 04/13/19 23 10:26 AM EST documented as of this encounter Care Teams Income Tax Analyst Relationship Specialty Start Date End Date Ana María Bryan MD [address] [place] [phone] PCP - General Family Medicine 03/26/18 documented as of this encounter
--- OUTSIDE RECORDS SUMMARY | 2025-01-20 19:04 | XMS_ITS | Encounter Summary ---
Author Organization [employer] Address [address] [facility] [address] [place] [address] Care Team Providers Care Supervisor Polishing Name Role Phone Ana María Bryan MD Primary Care Provider + Encounter Details Date Type Department Care Team (Latest Contact Info) Description 05/25/2021 Abstract [facility] CONVERSIONS Dental, Provider, DDS Social History Tobacco [...] Care Team ( st Contact Info) Description 01/23/2025 11:00 AM EDT Immunization [facility] [address] [place] [phone] 04/01/2025 10:15 AM EST Office Visit [facility] [address] [place] [phone] Ana María Bryan MD [address] [place] [phone] documented as of this encounter Visit Diagnoses Not on filedocumented in this encounter Care Teams Supervisor Polishing Relationship Specialty Start Date End Date Ana María Bryan MD [address] [place] [address] PCP - General Family Medicine 03/26/18 documented as of this encounter
--- OUTSIDE RECORDS SUMMARY | 2025-01-20 19:04 | XMS_ITS | Encounter Summary ---
Author Organization [employer] Address [address] [facility] [address] [place] [address] Care Team Providers Care Argon Tester Name Role Phone Ana María Bryan MD Primary Care Provider + Encounter Details Date Type Department Care Team (Late st Contact Info) Description 09/12/2022 Abstract [facility] [address] [place] [phone] Ana María Bryan MD [address] [place] [address] Social History Tobacco Use Types Packs/Day Years [...] Info) Description 01/23/2025 11:00 AM EDT Immunization [facility] [address] [place] [phone] 04/01/2025 10:15 AM EST Office Visit [facility] [address] [place] [address] Ana María Bryan MD [address] [place] [address] documented as of this encounter Procedures Procedure [...] Time PHQ-9 Depression Total Score: 1 04/13/19 10:26 AM EST documented as of this encounter Care Teams Argon Tester Relationship Specialty Start Date End Date Ana María Bryan MD [address] [place] [address] PCP - General Family Medicine 03/26/18 documented as of this encounter
--- OUTSIDE RECORDS SUMMARY | 2025-01-20 19:04 | XMS_ITS | Encounter Summary ---
Author Organization [employer] Address [address] [facility] [address] [place] [address] Care Team Providers Care Professional Security Officer Name Role Phone Ana María Bryan MD Primary Care Provider + Encounter Details Date Type Department Care Team (Late st Contact Info) Description 05/11/[address] [facility] [address] [place] [address] Vandana Ledesma DO [address] [place] [address] Social History Tobacco Use Types Packs/Day Years [...] Info) Description 01/23/2025 11:[address] [facility] [address] [place] [phone] 04/01/2025 10:15 AM EST Office Visit [facility] [address] [place] [phone] Ana María Bryan MD [address] [place] [phone] documented as of this encounter Visit Diagnoses Not on filedocumented in this encounter Additional Health Concerns Assessment Noted Time PHQ-9 Depression Total Score: 1 04/13/19 23 10:26 AM EST documented as of this encounter Care Teams Professional Security Officer Relationship Specialty Start Date End Date Ana María Bryan MD [address] [place] [phone] PCP - General Family Medicine 03/26/18 documented as of this encounter
--- OUTSIDE RECORDS SUMMARY | 2025-01-20 19:04 | XMS_ITS | Clinical Summary ---
Author Organization [facility] Address [address] [place] [phone] Phone Care Team Providers Care Laboratory Technology Teacher Name Role Phone Ana María Bryan [...] misc 1 Active Lancets (OneTouch Delica Plus Tytgro23I) misc TEST BLOOD SUGAR 4 TIMES A [...] 1 tab in the evening 2 Active amLODIPine (Norvasc) 2.5 MG tablet Take 1 tablet (2.5 mg total) by mouth at bed time 30 tablet 11 4 025 Active tacrolimus (PROGRAF) 1 MG capsuleIndicat ions:Kidney replaced by transplant Take 3 capsules (3 mg total) by mouth 1 (one) time each day in the morning AND 2 capsules (2 mg total) 1 (one) time each day in the evening. 150 capsule 11 4 025 Active predniSONE 5 MG tablet Take 1 tablet (5 mg total) by mouth 1 (one) time each day 30 tablet 11 5 Active ferrous sulfate 325 (65 Fe) MG EC tabletIndicati ons:Iron deficiency anemia, not otherwise specified TAKE 1 TABLET BY MOUTH TWICE DAILY IN THE MORNING AND IN THE EVENING 180 tablet 3 5 Active mycophenolate (MYFORTIC) 180 MG EC tablet TAKE 1 TABLET BY MOUTH TWICE DAILY IN THE MORNING AND IN THE EVENING 60 tablet 11 5 Active lisinopril 5 MG tablet TAKE 1 TABLET BY MOUTH EVERY MORNING 90 tablet 5 Active lisinopril 5 MG tablet Take 1 tablet (5 mg total) by mouth 1 (one) time each day 90 tablet 5 025 Discontinued Active Problems Problem Noted Date Diagnosed [...] mg daily. Jardiance held at admission. -Monitor [id number] glucose with meals and nightly, and every [...] tolerated. FU in 3 months. F/u with education director Type 2 diabetes mellitus without complication Overview [...] to pt to fu with them. Weight decreased 09/19/2021 10/08/2024 Osteoporosis 07/18/2021 10/08/2024 Long-term drug therapy 04/20/202104/19 Hyperkalemia 05/11/2020 10/08/2024 Osteoporosis 05/11/2020 07/12/2021 Hypertensive heart and renal disease with (congestive) heart failure 05/11/2020 07/12/2021 Encounters Date Type Department Care Team Description 01/09/2025 11:30 AM EDT Office Visit [facility] [address] [place] [phone] Bruce Galarza MD Kidney transplant status (Primary Dx) 01/09/2025 Refill [facility] [address] [facility] [address] [place] [address] Bruce Galarza MD 11/04/2024 Refill [facility] [address] [facility] [address] [place] [address] Sloane Bonner [place] 10/30/2024 Refill [facility] [address] [facility] [address] [place] [address] Bruce Galarza MD from Last 3 Months Immunizations Immunization Administration [...] Reading Time Taken Comments Blood Pressure 124/60 01/09/2025 10:55 AM EDT Pulse 71 01/09/2025 10:55 AM EDT Temperature - - Respiratory Rate 16 12/13/2022 11:32 AM EDT Oxygen Saturation 98% 01/09/2025 10:55 AM EDT Inhaled Oxygen Concentration - - Weight 49.4 kg (109 lb) 01/09/2025 10:55 AM EDT Height 144.8 cm (4' 9 ) 08/29/2022 10:15 AM EDT Body Mass Index 23.59 08/29/2022 10:15 AM EDT Plan of Treatment Upcoming Encounters Date Type Department Care Team (Late st Contact Info) Description 04/03/2025 10:45 AM EST Office Visit [facility] [address] [phone] Bruce Galarza MD [phone] [address] Health Maintenance Due Date Last Done Comments Breast Cancer Screening 1950 Diabetes: Pedal Pulse Checked 04/26/2020 Diabetes: Sensory Foot Exam 04/26/2020 Diabetes: Visual Foot Exam 04/26/2020 Colonoscopy (Post-Transplant Patient) 05/11/2020 Mammogram (Post-Transplant Patient) 05/11/2020 Pelvic Exam (Post-Transplant Patient) 05/11/2020 Influenza Vaccine (#1) 2024 9, 02/23/2018, 12/21/2017, Additional history exists Diabetes: Hemoglobin A1C 01/03/2025 025, 07/02/2024, 04/02/2024, Additional history exists Diabetes: Ophthalmology Exam 11/20/2025 11/20/2024 Pneumococcal Vaccine: 50+ Years Completed 05/07/2018, 03/09/2017 Pneumococcal Vaccine: Peds (0 to 5 Years) and At-Risk Patients (6 to 49 Years) Discontinued 05/07/2018, 03/09/2017 Hepatitis B Vaccine Aged Out 04/04/2022 No longe r eligible based on patient's age to complete this topic Procedures Procedure Name Priority Date/Time Associated Diagnosis Comments TACROLIMUS LEVEL Routine 12/31/2024 11:1 3 AM EDT Kidney transplant status CBC AND DIFFERENTIAL Routine 12/31/2024 11:13 AM EDT Kidney transplant status PROTEIN / CREATININE RATIO, URINE Routine 12/31/2024 11:13 AM EDT Kidney transplant status URINE ALBUMIN / CREATININE RATIO Routine 12/31/2024 11:13 AM EDT Kidney transplant status URINALYSIS WITH MICROSCOPIC Routine 12/31/2024 11:13 AM EDT Kidney transplant status RENAL FUNCTION PANEL Routine 12/31/2024 11:13 AM EDT Kidney transplant status MICROSCOPIC EXAMINATION - DO NOT USE Routine 12/31/2024 11:13 AM EDT HEMOGLOBIN A1C Routine 05/31/2022 10:19 AM EST 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) Iron deficiency anemia, not otherwise specified from Last 3 Months or Most Recently Relevant to Health Maintenance Results * (ABNORMAL) Microscopic Examination (12/31/2024 11:13 AM EDT) WBC, Urine 6-10(A) 0 - 5 /hpf [facility] RBC, Urine None seen 0 - 2 /hpf [facility] Squamous Epithelial, Urine >10(A) 0 - 10 /hpf [facility] Casts None seen None seen /lpf [facility] Bacteria, Urine None seen None seen/Few [facility] 12/31/2024 11:1 3 AM EDT 12/31/2024 us Bruce Galarza MD LAB MICROBIOLOGY - GENERAL OR DERABLES Final Result [facility] [address] [place] [address] * Tacrolimus level (12/31/2024 11:13 AM EDT) Tacrolimus Lvl 5.3 5.0 - 20.0 ng/mL [facility] Comment: Target steady state trough concentration for Tacrolimus varies based on type of organ transplant immunosuppressive protocol and other patient specific factors. Tacrolimus trough concentrations should be interpreted in conjunction with clinical assessments of rejection and tolerability. Values obtained with different assay methods cannot be used interchangeably due to differences in assay methods and cross-reactivty with metabolites, nor should correction factors be applied. Therefore, consistent use of one assay for individual patients is recommended. Detection Limit = 0.5 ng/mL Performed by LC-MS/MS technology. Blood Venous blood / Unknown 12/31/2024 11:13 AM EDT 12/31/2024 Narrative [facility] - 01/02/2025 7:05 PM EDT Test(s) [id number] (FK506), Blood was developed and its performance characteristics determined by [facility]. It has not been cleared or approved by the Food and Drug Administration. Bruce Galarza MD LAB BLOOD ORDERABLES Final Re sult Performing Organization Address City/[facility]/ZIP Co de Phone Number [facility] [place] [address] * (ABNORMAL) Protein, Total, Random Urine w/Creatinine (Protein/Creat Ratio) (12/31/2024 11:13 AM EDT) Creatinine, Ur 57.3 Not Estab. mg/dL [facility] Protein, Ur 15.5 Not Estab. mg/dL [facility] Urine Protein/Creati nine Ratio 271(H) 0 - 200 mg/g creat [facility] Urine Urine specimen obtained by clean catch procedure / Unknown 12/31/2024 11:13 AM EDT 12/31/2024 Bruce Galarza MD LAB URINE ORDERABLES Final Re sult [facility] [address] [place] [address] * (ABNORMAL) Urine Albumin / Creatinine Ratio (12/31/2024 11:13 AM EDT) Albumin, Urine 47.9 Not Estab. ug/mL [facility] Albumin/Creatin ine Ratio 84(H) 0 - 29 mg/g creat [facility] Comment: Normal: 0 - 29 Moderately increased: 30 - 300 Severely increased: >300 Urine Urine specimen obtained by clean catch procedure / Unknown 12/31/2024 11:13 AM EDT 12/31/2024 us Bruce Galarza MD LAB URINE ORDERABLES Final Re sult [facility] [address] [place] [address] * (ABNORMAL) Urinalysis with microscopic (12/31/2024 11:13 AM EDT) Pathologist [facility] Specific [place], Urine 1.012 1.005 - 1.030 [facility] pH Urine 6.0 5.0 - 7.5 [facility] Color, Urine Yellow Yellow [facility] [phone] Appearance Urine Clear Clear [facility] WBC Esterase Urine Trace(A) Negative [facility] Protein, Ur Trace Negative/Tra ce [facility] Glucose, Ur Negative Negative [facility] [phone] Ketones, Urine Negative Negative [facility] Blood Urine Negative Negative [facility] Bilirubin Urine Negative Negative [facility] Urobilinogen Urine 0.2 0.2 - 1.0 mg/dL [facility] Nitrite, Urine Negative Negative [facility] Microscopic Examination See below: [facility] Comment:Microscopic was rachell cated and was performed. Urine Urine specimen obtained by clean catch procedure / Unknown 12/31/2024 11:13 AM EDT 12/31/2024 us Bruce Galarza MD LAB URINE ORDERABLES Final Re sult [facility] [address] [place] [address] * (ABNORMAL) CBC and differential (12/31/2024 11:13 AM EDT) WBC 11.9(H) 3.4 - 10.8 x10E3/uL [facility] RBC 4.16 3.77 - 5.28 x10E6/uL [facility] Hemoglobin 12.9 11.1 - 15.9 g/dL [facility] Hematocrit 39.7 34.0 - 46.6 % [facility] MCV 95 79 - 97 fL [facility] MCH 31.0 26.6 - 33.0 pg [facility] MCHC 32.5 31.5 - 35.7 g/dL [facility] RDW 14.8 11.7 - 15.4 % [facility] Platelets 239 150 - 450 x10E3/uL [facility] Neutrophils Relative 64 Not Estab. % [facility] Lymphocytes Relative 18 Not Estab. % [facility] Monocytes 12 Not Estab. % [facility] Eosinophils Relative 5 Not Estab. % [facility] Basophils Relative 1 Not Estab. % [facility] Neutrophils Absolute 7.6(H) 1.4 - 7.0 x10E3/uL [facility] Lymphocytes Absolute 2.2 0.7 - 3.1 x10E3/uL [facility] Monocytes Absolute 1.4(H) 0.1 - 0.9 x10E3/uL [facility] Eosinophils Absolute 0.6(H) 0.0 - 0.4 x10E3/uL [facility] Basophils Absolute 0.1 0.0 - 0.2 x10E3/uL [facility] Immature Granulocytes 0 Not Estab. % [facility] Immature Grans (Absolute) 0.0 0.0 - 0.1 x10E3/uL [facility] Blood Venous blood / Unknown 12/31/2024 11:13 AM EDT 12/31/2024 us Bruce Galarza MD LAB BLOOD ORDERABLES Final Re sult [facility] [address] [place] [address] * (ABNORMAL) Renal Function Panel (12/31/2024 11:13 AM EDT) Glucose 152(H) 70 - 99 mg/dL [facility] BUN 29(H) 8 - 27 mg/dL [facility] Creatinine 0.95 0.57 - 1.00 mg/dL [facility] eGFR CKD-EPI CR 2020 62 >59 mL/min/1.7 3 [facility] BUN/Creatinine Ratio 31(H) 12 - 28 [facility] Sodium 135 134 - 144 mmol/L [facility] Potassium 4.3 3.5 - 5.2 mmol/L [facility] Chloride 99 96 - 106 mmol/L [facility] Bicarbonate (CO2) 21 20 - 29 mmol/L [facility] Calcium 9.1 8.7 - 10.3 mg/dL [facility] Albumin 4.2 3.8 - 4.8 g/dL [facility] Phosphorus 2.5(L) 3.0 - 4.3 mg/dL [facility] Blood Venous blood / Unknown 12/31/2024 11:13 AM EDT 12/31/2024 us Bruce Galarza MD LAB BLOOD ORDERABLES Final Re [facility] [address] [place] [address] * (ABNORMAL) Hemoglobin A1c (05/31/2022 10:19 AM EST) Hemoglobin A1C 6.8(H) (4.0-5.6) % [facility] Comment: MONITORING: In known diabetic patients, hemoglobin A1c targets should be discussed with health care provider. DIAGNOSTIC USE: The [place] Diabetes Association (ADA) and the World Health [...] Supplement 1 Testing performed or reported by [facility], a Service of [facility], [address] [place] [phone] Carlene Prasad MD, Customer Support Consultant [facility]# [id number] Blood specimen (specimen) Venous blood / Unknown 05/31/2022 10:19 AM EST 05/31/2022 10:20 AM EST Olivia Trujillo MD LAB BLOOD ORDERABLES Final Resu lt [facility] from Last 3 Months or Most Recently Relevant to Health Maintenance Insurance [employer] M[employer]/PAUL ([id number]) [employer]/PAUL ([id number]) Care Teams Laboratory Technology Teacher Relationship Specialty Start Date End Date Ana María Bryan MD [address] [place] [phone] PCP - General 04/05/20
--- OUTSIDE RECORDS SUMMARY | 2025-01-20 19:04 | XMS_ITS | Encounter Summary ---
Author Organization [employer] Address [address] [facility] [address] [place] [address] Care Team Providers Care Meat Market Manager Name Role Phone Ana María Bryan MD Primary Care Provider + Encounter Details Date Type Department Care Team (Latest Contact Info) Description 01/29/2019 Abstract [facility] CONVERSIONS Dental, Provider, DDS Social History Tobacco [...] Info) Description 01/23/2025 11:00 AM EDT Immunization [facility] MEDICINE [address] [place] [phone] 04/01/2025 10:15 AM EST Office Visit [facility] [address] [place] [phone] Ana María Bryan MD [address] [place] [address] documented as of this encounter Visit Diagnoses Not on filedocumented in this encounter Care Teams Meat Market Manager Relationship Specialty Start Date End Date Ana María Bryan MD [address] [place] [phone] PCP - General Family Medicine 03/26/18 documented as of this encounter
--- OUTSIDE RECORDS SUMMARY | 2025-01-20 19:04 | XMS_ITS | Encounter Summary ---
Author Organization [employer] Address [address] [facility] 7t [place] [address] Care Team Providers Care Machinery Rigger Name Role Phone Ana María Bryan MD Primary Care Provider + Encounter Details Date Type Department Care Team (Late st Contact Info) Description 01/20/2025 Orders Only GENERIC EXTERNAL DATA DEPARTMENT Provider, [...] Encounters Date Type Department Care Team ([facility] st Contact Info) Description 01/23/2025 11:00 AM EDT Immunization [facility] [address] [place] [phone] 04/01/2025 10:15 AM EST Office Visit [facility] [address] [place] [phone] Ana María Bryan MD [address] [place] [phone] documented as of this encounter Procedures Procedure Name Priority Date/Time Associated Diagnosis Comments XR CALCANEUS 2 VIEWS BILATERAL Routine 01/20/2025 3:14 PM EDT XR FOOT 3+ VIEWS RIGHT Routine 3:00 PM EDT CBC WITH AUTO DIFFERENTIAL Routine 01/20/2025 2:10 PM EDT SED RATE BY MODIFIED WESTERGREN Routine 01/20/2025 2:10 PM EDT C-REACTIVE PROTEIN Routine 01/20/2025 2: 10 PM EDT LACTIC ACID Routine 01/20/2025 2:10 PM EDT COMPREHENSIVE METABOLIC PANEL Routine 01/20/2025 2:10 PM EDT documented in this encounter Results * XR Calcaneus 2 Views Bilateral (01/20/2025 3:14 PM EDT) Anatomical Region Laterality Modality Lower Extremities, Calcaneus Bilateral Rad iographic Imaging 01/20/2025 3:14 PM EDT Narrative 01/20/2025 3:47 PM EDT [place] [address] XRay Report Signed Patient: Sofiya Julian MR#: [id number] : 1950 Acct:[id number] Age/Sex: 74 / F ADM Date: 01/20/25 Loc: HO.ED Attending Dr: Ordering Physician: Vasyl Alarcon MD Date of Service: 01/20/25 Procedure(s): XR Calcaneus Chavo min 2V Accession Number(s): [id number] cc: Ana María Bryan MD; Vasyl Alarcon MD Reason for Exam: R > L tender atraumatic calcanei EXAMINATION: XR CALCANEUS 2 VIEWS BILATERAL HISTORY: R > L tender atraumatic calcanei COMPARISON: Previous x-ray of the right foot from earlier the same day and left foot December 2023 FINDINGS: Right: No x-ray evidence of osteomyelitis. Osteopenia. Bone alignment is normal. No fracture or dislocation. Calcaneal spurs. Severe soft tissue arterial calcification. No abnormal air in the soft tissues or foreign body. Left: No x-ray evidence of osteomyelitis. Osteopenia. Partially visualized surgical hardware in the distal tibia and fibula. Bone alignment is normal. No fracture or dislocation. Calcaneal spurs. Severe soft tissue arterial calcification. No abnormal air in the soft tissues or soft tissue foreign body. XR/XR Calcaneus Chavo min 2V IMPRESSION: No x-ray evidence of osteomyelitis. Electronically signed by: Roxana Fallon MD 01/20/2025 03:45 PM EDT Dictated By: Roxana Fallon MD Signed By: <Electronically signed by Roxana Fallon MD in OV> 01/20/25 1545 DD/ 1514 TD/TT: 01/20/251514 A Auxiliary: JESSICA Procedure Note Donotuseinterpreter, Image - 01/20/[address] [address] XRay Report Signed Patient: Sofiya Julian NMR#: [id number] : 1950Acct:[id number] Age/Sex: 74 / FADM Date: 01/20/25 Loc: HO.ED Attending Dr: Ordering Physician: Vasyl Alarcon MD Date of Service: 01/20/25 Procedure(s): XR Calcaneus Chavo min 2V Accession Number(s): [id number] cc: Ana María Bryan MD; Vasyl Alarcon MD Reason for Exam: R > L tender atraumatic calcanei EXAMINATION: XR CALCANEUS 2 VIEWS BILATERAL HISTORY: R > L tender atraumatic calcanei COMPARISON: Previous x-ray of the right foot from earlier the same day and left foot December 2023 FINDINGS: Right: No x-ray evidence of osteomyelitis. Osteopenia. Bone alignment is normal. No fracture or dislocation. Calcaneal spurs. Severe soft tissue arterial calcification. No abnormal air in the soft tissues or foreign body. Left: No x-ray evidence of osteomyelitis. Osteopenia. Partially visualized surgical hardware in the distal tibia and fibula. Bone alignment is normal. No fracture or dislocation. Calcaneal spurs. Severe soft tissue arterial calcification. No abnormal air in the soft tissues or soft tissue foreign body. XR/XR Calcaneus Chavo min 2V IMPRESSION: No x-ray evidence of osteomyelitis. Electronically signed by: Roxana Fallon MD 01/20/2025 03:45 PM EDT RP Dictated By: Roxana Fallon MD Signed By: <Electronically signed by Roxana Fallon MD in OV> 01/20/25 1545 DD/ 13 TD/TT: 01/20/251514 A Auxiliary: [facility]ESS[facility] External Provider IMG XR PROCEDURES Final Result * XR Foot 3+ Views Right (01/20/2025 3:00 PM EDT) Anatomical Region Laterality Modality Lower Extremities, Foot Right Radiogra phic Imaging 01/20/2025 3:00 PM EDT Narrative 01/20/2025 3:44 PM EDT [address] [address] XRay Report Signed Patient: Sofiya Julian MR#: [id number] : 1950 Acct:[id number] Age/Sex: 74 / F ADM Date: 01/20/25 Loc: HO.ED Attending Dr: Ordering Physician: Eros Palm Date of Service: 01/20/25 Procedure(s): XR foot RT min 3V Accession Number(s): [id number] cc: Eros Palm; Ana María Bryan MD Reason for Exam: gangrene ulcers. osteo? EXAMINATION: XR FOOT, RIGHT CLINICAL INFORMATION: gangrene ulcers. osteo? COMPARISON: None available. TECHNIQUE: AP, lateral, and oblique views of the right foot. FINDINGS: Osteopenia. Bone alignment is normal. No fracture or dislocation. Small erosion along the ulnar side of the proximal phalanx of the fifth toe at the PIP joint. Question degenerative versus osteomyelitis. Mild degenerative changes at the first MTP and MTT joint.s Calcaneal spurs. Severe soft tissue arterial calcification. No foreign body or air in the soft tissues. XR/XR foot RT min 3V IMPRESSION: Erosive changes of the proximal phalanx of the fifth toe at the PIP joint. Question early osteomyelitis. Clinical correlation recommended. While degenerative changes. Large calcaneal spurs. Severe atherosclerotic disease. Electronically signed by: Roxana Fallon MD 01/20/2025 03:41 PM EDT Dictated By: Roxana Fallon MD Signed By: <Electronically signed by Roxana Fallon MD in OV> 01/20/25 1541 DD/ 1500 TD/TT: 01/20/25 1512 A Auxiliary: JESSICA Procedure Note Donotuseinterpreter, Image - 01/20/[address] [address] XRay Report Signed Patient: Sofiya Julian [facility]#: [id number] : 1950Acct:[id number] Age/Sex: 74 / FADM Date: 01/20/25 Loc: HO.ED Attending Dr: Ordering Physician: Eros Palm Date of Service: 01/20/25 Procedure(s): XR foot RT min 3V Accession Number(s): [id number] cc: Eros Palm; Ana María Bryan MD Reason for Exam: gangrene ulcers. osteo? EXAMINATION: XR FOOT, RIGHT CLINICAL INFORMATION: gangrene ulcers. osteo? COMPARISON: None available. TECHNIQUE: AP, lateral, and oblique views of the right foot. FINDINGS: Osteopenia. Bone alignment is normal. No fracture or dislocation. Small erosion along the ulnar side of the proximal phalanx of the fifth toe at the PIP joint. Question degenerative versus osteomyelitis. Mild degenerative changes at the first MTP and MTT joint.s Calcaneal spurs. Severe soft tissue arterial calcification. No foreign body or air in the soft tissues. XR/XR foot RT min 3V IMPRESSION: Erosive changes of the proximal phalanx of the fifth toe at the PIP joint. Question early osteomyelitis. Clinical correlation recommended. While degenerative changes. Large calcaneal spurs. Severe atherosclerotic disease. Electronically signed by: Roxana Fallon MD 01/20/2025 03:41 PM EDT Dictated By: Roxana Fallon MD Signed By: <Electronically signed by Roxana Fallon MD in OV> 01/20/25 1541 DD/ 1500 TD/TT: 01/20/25 1512 A Auxiliary: [facility] External Provider IMG XR PROCEDURES Final Result * Sed Rate by Modified Carmella (01/20/2025 2:10 PM EDT) Erythrocyte Sedimentation Rate 17 0 - 20 MM/HR [facility] Comment:Patients with polycy themia and many hemoglobin abnormalitiesmay have depressed sed rates whereas patients with anemiamay have elevated sed rates. 01/20/2025 2:10 PM EDT 01/20/2025 2:19 PM EDT Generic External Data Provider LAB BLOOD ORDERAB LES Final Result Performing Organization Address [facility] de Phone Number [facility] [address] [place] [phone] * Lactic Acid (01/20/2025 2:10 PM EDT) Pathologist [facility] Lactic Acid 1.4 0.5 - 2.0 mmol/L [facility] 01/20/2025 2:10 PM EDT 01/20/2025 2:19 PM EDT Generic External Data Provider LAB BLOOD ORDERAB LES Final Result Performing Organization Address [facility] de Phone Number [facility] [address] [place] [phone] * C-reactive Protein (01/20/2025 2:10 PM EDT) Pathologist [facility] C Reactive Protein 0.41 < or = 0.50 mg/dL [facility] 01/20/2025 2:10 PM EDT 01/20/2025 2:19 PM EDT Generic External Data Provider LAB BLOOD ORDERAB LES Final Result Performing Organization Address [facility] de Phone Number [facility] [address] [place] [phone] * (ABNORMAL) Comprehensive Metabolic Panel (01/20/2025 2:10 PM EDT) Pathologist [facility] Sodium 140 135 - 145 mmol/L [facility] Potassium 4.7 3.3 - 5.1 mmol/L [facility] Chloride 110(H) 96 - 108 mmol/L [facility] Carbon Dioxide 23 22 - 29 mmol/L [facility] Anion Gap 12 12 - 20 [facility] Urea Nitrogen (BUN) 40(H) 9 - 16 mg/dL [facility] Creatinine, Serum 1.08 0.5 - 1.4 mg/dL [facility] Creatinine Clr Calc Pharmacy 30.7 [facility] Comment:Provided height and weight: 144.78 cm,50.349 kg.eGFR (calculated from the MDRD study equation) and eCrCl(calculated from the Cockcroft-Gault equation) are based ondifferent parameters and may not yield comparable results.If eCrCl result is absurd, please check patient'sheight/weight. Estimated Glomerular Filt Rate 49 [facility] Comment:Chronic Kidney Disea se: Estimated GFR < 60 mL/min/1.47o1Uoqyqm Kidney Disease: Estimated GFR < 15 mL/min/1.73m2 Glucose 137(H) 60 - 115 mg/dL [facility] Calcium 9.3 8.4 - 10.2 mg/dL [facility] Bilirubin, Total 0.5 0.0 - 1.0 mg/dL [facility] Aspartate Amino Transferase 32(H) 5 - 31 U/L [facility] Alanine Aminotransferase 24 0 - 31 U/L [facility] Total Protein 7.5 6.5 - 8.0 g/dL [facility] Albumin Level 4.1 3.5 - 5.0 g/dL [facility] Alkaline Phosphatase 56 39 - 117 U/L [facility] 01/20/2025 2:10 PM EDT 01/20/2025 2:19 PM EDT us Generic External Data Provider LAB BLOOD ORDERAB LES Final Result [facility] [address] [place] [phone] * (ABNORMAL) CBC auto differential (01/20/2025 2:10 PM EDT) White Blood Count 12.1(H) 4.8 - 10.8 X10*3/uL [facility] Red Blood Count 3.99(L) 4.20 - 5.50 X10*6/uL [facility] Hemoglobin 12.2 12.0 - 16.0 g/dl [facility] Hematocrit 37.8 37.0 - 47.0 % [facility] Mean Corpuscular Volume 94.7 80.0 - 98.0 fL [facility] Mean Corpuscular Hemoglobin 30.6 27.0 - 33.0 pg [facility] Mean Corpuscular HGB Conc 32.3 31.0 - 35.0 g/dl [facility] Red Cell Distribution Width 16.9(H) 11.0 - 16.0 % [facility] Platelet Count 234 160 - 400 X10*3/uL [facility] Mean Platelet Volume 11.9 9.4 - 12.3 fL [facility] Neutrophils Percent Auto 85.6(H) 45 - 73 % [facility] Imm Gran Pct Auto 0.5(H) 0.0 - 0.4 % [facility] Lymphocytes Percent Auto 9.5(L) 20 - 40 % [facility] Monocytes Percent Auto 3.8 2 - 11 % [facility] Eosinophils Percent Auto 0.3 0 - 4 % [facility] Basophils Percent Auto 0.3 0 - 2 % [facility] NRBC Pct Auto 0.0 0.0 - 0.2 /100WBC [facility] Neutrophils Absolute Auto 10.3(H) 2.0 - 8.3 x10*3/uL [facility] Imm Gran Abs Auto 0.06(H) 0.00 - 0.03 X10*3/uL [facility] Lymphocytes Absolute Auto 1.2 1.2 - 4.9 X10*3/uL [facility] Monocytes Absolute Auto 0.5 0.1 - 1.2 X10*3/uL [facility] Eosinophils Absolute Auto 0.0 0.0 - 0.4 X10*3/uL [facility] Basophils Absolute Auto 0.0 0.0 - 0.2 X10*3/uL [facility] NRBC Abs Auto 0.000 0.0 - 0.012 X10*3/uL [facility] 01/20/2025 2:10 PM EDT 01/20/2025 2:19 PM EDT us Generic External Data Provider LAB BLOOD ORDERAB LES Final Result [facility] [address] [place] [phone] documented in this encounter Visit Diagnoses Not on filedocumented in this encounter Additional Health Concerns Assessment Noted Time PHQ-9 Depression Total Score: 0 10/04/19 25 11:18 AM EDT documented as of this encounter Care Teams Machinery Rigger Relationship Specialty Start Date End Date Ana María Bryan MD [address] [place] [address] PCP - General Family Medicine 03/26/18 documented as of this encounter
--- OUTSIDE RECORDS SUMMARY | 2025-01-20 19:04 | XMS_ITS | Encounter Summary ---
Author Organization [employer] Address [address] [facility] 7t [place] [address] Care Team Providers Care Broke Beater Machine Operator Name Role Phone Ana María Bryan MD Primary Care Provider + Encounter Details Date Type Department Care Team (Latest Contact Info) Description 01/19/2025 Travel Social History Tobacco Use Types Packs/Day [...] Info) Description 01/23/2025 11:00 AM EDT Immunization [facility] [address] [place] [phone] 04/01/2025 10:15 AM EST Office Visit [facility] [address] [place] [phone] Ana María Bryan MD [address] [place] [phone] documented as of this encounter Visit Diagnoses Not on filedocumented in this encounter Additional Health Concerns Assessment Noted Time PHQ-9 Depression Total Score: 0 10/04/19 25 11:18 AM EDT documented as of this encounter Care Teams Broke Beater Machine Operator Relationship Specialty Start Date End Date Ana María Bryan MD [address] [place] [phone] PCP - General Family Medicine 03/26/18 documented as of this encounter
--- OUTSIDE RECORDS SUMMARY | 2025-01-20 19:04 | XMS_ITS | Encounter Summary ---
Author Organization [employer] Address 75 [facility] 7t [place] [address] Care Team Providers Care Automated Weaver Name Role Phone Ana María Bryan MD Primary Care Provider + Reason for Visit * Reason Comments Med Refill Encounter Details Date Type Department Care Team (Late st Contact Info) Description 11/21/2022 Refill [facility] [address] [place] [address] Ana María Bryan MD [address] [place], [place] [phone] Type 2 diabetes mellitus with stage 3 [...] Info) Description 01/23/2025 11:00 AM EDT Immunization [facility] [address] [place] [phone] 04/01/2025 10:15 AM EST Office Visit [facility] [address] [place] [phone] Ana María Bryan MD [address] [place] [phone] documented as of this encounter Visit Diagnoses Diagnosis Type 2 diabetes mellitus with stage 3 chronic kidney disease, with long-term current use of insulin, unspecified whether stage 3a or 3b CKD (HCC) documented in this encounter Additional Health Concerns Assessment Noted Time PHQ-9 Depression Total Score: 1 04/13/19 23 10:26 AM EST documented as of this encounter Care Teams Automated Weaver Relationship Specialty Start Date End Date Ana María Bryan MD [address] [place] [phone] PCP - General Family Medicine 03/26/18 documented as of this encounter
--- OUTSIDE RECORDS SUMMARY | 2025-01-20 19:04 | XMS_ITS | Encounter Summary ---
Author Organization [employer] Address [address] [facility] 7t [place] [address] Care Team Providers Care Director Counseling Bureau Name Role Phone Ana María Bryan MD Primary Care Provider + Encounter Details Date Type Department Care Team (Late st Contact Info) Description 03/17/2022 Orders Only [facility] [address] [place] [phone] Dary Nuno MD [address] [place] [address] [phone] Acute deep vein thrombosis (DVT) of proximal [...] Info) Description 01/23/2025 11:00 AM EDT Immunization [address] [phone] 04/01/2025 10:15 AM EST Office Visit [address] [phone] Ana María Bryan MD [address] [place] [phone] documented as of this encounter Visit Diagnoses Diagnosis Acute deep vein thrombosis (DVT) of proximal vein of right lower extremity (HCC)- Primary documented in this encounter Care Teams Director Counseling Bureau Relationship Specialty Start Date End Date Ana María Bryan MD [address] [place] [address] PCP - General Family Medicine 03/26/18 documented as of this encounter
--- OUTSIDE RECORDS SUMMARY | 2025-01-20 19:04 | XMS_ITS | Clinical Summary ---
Author Organization [address] [facility] Address [address] [place] [address] Phone Care Team Providers Care Book Salesman Name Role Phone Ana María Bryan MD Primary Care Provider [phone] Medications ascorbic acid (VITAMIN C) 500 mg [...] f brachial vein of right upper extremity ([facility] V24, [facility] V28) 03/24/2022 Overview (07/21/2024): On [...] square meter and albuminuria creatinine ratio bet* ([facility] V24, [facility] V28) 03/17/2022 Chronic kidney disease (CKD) stage G3a/A2, moderately decreased glomerular filtration rate (GFR) between 45-59 mL/min/1.73 square meter and albuminuria creatinine ratio bet* ([facility] V24, [facility] V28) 03/17/2022 Overview (07/21/2024): Last Assessment & Plan: History of renal transplant Creatinine is at baseline, avoid nephrotoxic medications, BUN is slightly elevated Continue patient's tacrolimus and prednisone Mycophenolate was not listed last admission but patient and her family tell me she is taking this twice a day, this has been added to her med list and ordered Stage 3 chronic kidney disease ([facility] V24, [facility] V28) 03/17/2022 Overview (07/21/2024): Last Assessment & [...] pain 03/17/2022 Gastrointestinal hemorrhage 03/17/2022 Diabetes mellitus ([facility] V24, [facility] V28) Overview (07/21/2024): Last Assessment & Plan: Patient normally takes a home regimen with combination oral agents and insulin. At home uses Humalog 3 times daily, 6 units before meals. Also takes Lantus at bedtime 8 units. In addition she takes Jardiance 25 mg daily. Jardiance held at admission. -Monitor kylid-qr-nscw glucose with meals and nightly, and every [...] tolerated. FU in 3 months. F/u with chicken cutter Type 2 diabetes mellitus without complication Overview (12/24/2024): Last Assessment & Plan: Continue insulin, will be n.p.o. 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 ([facility] V24, [facility] V28) 05/11/2020 Essential hypertension 05/11/2020 History of kidney transplant 05/11/2020 Overview (07/21/2024): Last Assessment & Plan: Patient takes tacrolimus and mycophenolate, confirm these doses with me and these meds will continue She also states that she was put on Plavix at the time of her transplant, she states she has never had an OR/stents or stroke and has never had any [...] Health Maintenance Due Date Last Done Comments Colorectal Cancer Screening: Colonoscopy 1950 Diabetes: Annual Foot Exam 06/28/1959 Diabetes: Annual Retina Eye Exam 06/28/1959 Hepatitis B Vaccines (2 of 3 - 19+ 3-dose series) 05/02/2022 04/04/2022 Cholesterol Screening (Lipid Panel) 02/06/2024 Falls Risk Assessment 02/06/2024 Hepatitis C [...] patient's age to complete this topic Insurance [employer] Care Teams Book Salesman Relationship Specialty Start Date End Date Ana María Bryan MD [address] [place] [phone] PCP - General Internal Medicine 02/06/24
--- OUTSIDE RECORDS SUMMARY | 2025-01-20 19:04 | XMS_ITS | Clinical Summary ---
Author Organization [employer] Address [address] [facility] [address] [place] [address] Care Team Providers Care Miller Apprentice Name Role Phone Ana María Bryan [...] MEALS DIRECTED Active Lancets (OneTouch Delica Plus [id number]) [facility] TEST BLOOD SUGAR 4 TIMES A DAY [...] whether stage 3a or 3b CKD (HCC) TAKE 1/2 TUBE BY MOUTH NEEDED HYPOGLYCEMIA DIRECTED 30 g 5 023 Active lisinopril 2.5 MG tablet TAKE 1 TABLET BY MOUTH EVERY MORNING 90 tablet 1 023 Active Molnupiravir 200 MG capsule Take 800 mg by mouth 2 times daily. Take 4 tabs (800 mg) po bid for 5 days. Slovak label 40 capsule 024 Active fluticasone (Flonase) 50 MCG/ACT nasal sprayIndications:S easonal allergic rhinitis due to other allergic trigger Use 1-2 sprays in each nostril every day as needed 48 g 025 Active polyethylene glycol, PEG, 3350 (MiraLax) 17 GM/SCOOP powderIndications: Constipation, unspecified constipation type Mix 1 capful in 8 in 8 oz water and drink daily 527 g 2 025 Active Pentips Generic Pen [place] 32G X 4 MM misc USE FOUR [...] EVERY MORNING 90 tablet 1 025 Active OneTouch Ultra Test test stripIndications:T ype 2 diabetes mellitus with stage 3 chronic kidney disease, with long-term current use of insulin, unspecified whether stage 3a or 3b CKD (HCC) TEST BLOOD SUGAR FOUR TIMES DAILY 100 [...] BEDTIME AFTER MEALS 60 tablet 3 Active docusate sodium (Colace) 100 MG capsule TAKE 1 CAPSULE BY MOUTH TWICE DAILY NEEDED 180 capsule 1 Active melatonin 5 MG tabletIndications: Primary insomnia TAKE 1 TABLET BY MOUTH AT BEDTIME 90 tablet 025 Active FT Stool Softener 50-8.6 MG tabletIndications: Constipation, unspecified constipation type TAKE 2 TABLETS BY MOUTH TODAY THEN 1 TABLET ONCE DAILY 30 tablet 1 Active gabapentin (Neurontin) 100 MG capsule TAKE 1 CAPSULE BY MOUTH AT BEDTIME 90 capsule 1 Active pantoprazole (ProtoNix) 40 MG EC tabletIndications: Upper gastrointestinal bleeding TAKE 1 TABLET BY MOUTH TWICE DAILY IN THE MORNING AND IN THE EVENING 180 tablet Active amoxicillin-clavul anate (Augmentin) 875-125 MG tablet Take 1 tablet by mouth 2 times daily for 7 days. 14 tablet 025 01/26 Active gabapentin (Neurontin) 100 MG capsule TAKE 1 CAPSULE BY MOUTH AT BEDTIME 90 capsule 1 025 12/30 Discontinued senna-docusate sodium (Senokot-S) 8.6-50 MG tabletIndications: Constipation, unspecified constipation type Take 2 tablets once, then 1 tablet daily 30 tablet 1 025 12/25 Discontinued pantoprazole (ProtoNix) 40 MG EC tabletIndications: Upper gastrointestinal bleeding TAKE 1 TABLET BY MOUTH TWICE DAILY IN THE MORNING AND IN THE EVENING 180 tablet 025 01/09 Discontinued pantoprazole (ProtoNix) 40 MG EC tabletIndications: Upper gastrointestinal bleeding Take 1 tablet (40 mg) by mouth with breakfast and with evening meal. Do not crush, chew, or split. 180 tablet 025 01/09 Discontinued( Duplicate order (will not trigger notification [...] vs gastroparesis. r/o PUD. Refer to GI, [facility] does not accept patient's insurance. Will refer to [facility] [place] [place]. Counseled to drink herbal tea prior to [...] colonic polyp 03/24/2022 Overview (08/15/2023): Colonoscopy at [facility] on 03/15/22 (admitted due to rectal [...] at least until august and FU with boring machine operator production. We discussed avoid prolonged rest, ambulation with [...] mg daily. Jardiance held at admission. -Monitor [id number] glucose with meals and nightly, and every [...] Continue Lantus 12 units and follow-up with plant cytologist, she is off Jardiance due to side effects. Discussed importance of having small and fractioned meals I will follow-up in 3 to 4 months Referral to [facility] to [facility] ([facility]) She has been referred to hoisting machine operator for toenail trimming Assessment & Plan (08/15/2023 11:55 AM EDT): Controlled. A1c is at goal. Continue on Lantus 10 units she will lower to 8 units only if she has persistent blood sugar below 70. Counseled re more frequent low calorie/carb meals. Check fgstk 3x daily Encouraged physical activity as tolerated. FU in 3 months. F/u with plant cytologist Assessment & Plan (10/23/2022 5:09 PM EDT): [...] at goal. -She has follow up with Brick Machine Operator next month. -Continue humalog sliding scale + [...] status post renal transplant - fu with drug clerk - continue on Prograf + Mycophenolate Assessment [...] low dose lisinopril and fu with me blow torch burner in 3 weeks Check potassium next week. [...] she states she has never had an VT/stents or stroke and has never had any [...] Encounters Date Type Department Care Team Description 01/20/2025 Orders Only GENERIC EXTERNAL DATA DEPARTMENT Provider, Generic External Data 01/19/2025 2:00 PM EDT Office Visit [facility] [address] [place] [phone] Candida Benites FNP 01/19/2025 Travel 01/09/[address] [facility] [address] [place] [address] Ana María Bryan MD Upper gastrointestinal bleeding 12/31/2024 Orders Only GENERIC EXTERNAL DATA DEPARTMENT Provider, Generic External Data 12/29/[address] [facility] [address] [place] [address] Ana María Bryan MD 12/25/[address] [facility] [address] [place] [address] Kelly Conner NP Constipation, unspecified constipation type 12/01/2024 Orders Only GENERIC EXTERNAL DATA DEPARTMENT Provider, Generic External Data 11/03/[address] [facility] [address] [place] [address] Ana María Bryan MD Primary insomnia 10/29/2024 Orders Only GENERIC EXTERNAL DATA DEPARTMENT Provider, Generic External Data 10/28/[address] [facility] [address] [place] [address] Ana María Bryan MD 10/24/2024 11:20 AM EDT Office Visit [facility] [address] [place] [address] Kelly Conner NP Right hand pain (Primary Dx); Right shoulder pain, unspecified chronicity 10/24/2024 Travel from Last 3 Months Immunizations Immunization Administration [...] the past 12 months, has t he [employer], gas, oil or water company threatened to [...] 17 01/19/2025 1:20 PM EDT Oxygen Saturation 97% 10/24/2024 11:23 AM EDT Inhaled Oxygen Concentration - - Weight 50.3 kg (111 lb) 01/19/2025 1:20 PM EDT Height 144.8 cm (4' 9 ) 01/19/2025 1:20 PM EDT Body Mass Index 24.02 01/19/2025 1:20 PM EDT Plan of Treatment Upcoming Encounters Date Type Department Care Team (Late st Contact Info) Description 01/23/2025 11:00 AM EDT Immunization [facility] [address] [place] [phone] 04/01/2025 10:15 AM EST Office Visit [facility] [address] [place] [phone] Ana María Bryan MD [address] [place] [address] Health Maintenance Due Date Last Done Comments CT Colonography 1950 FIT DNA/Cologuard 1950 FIT 1950 FOBT 1950 Sigmoidoscopy 1950 Hepatitis C Screening 06/28/1967 Hepatitis B Vaccines (2 of 3 - 19+ 3-dose series) 05/02/2022 04/04/2022 RSV Patients and Patients Aged 60 years or older (1 - 1-dose 75+ series) 2024 COVID-19 Vaccine ( season) 2024 12/29/2022, 01/03/2022, 07/07/2021, Additional history exists Influenza Vaccine (#1) 2024 , 12/23/2021, 01/28/2021, Additional history exists Lipid Panel 12/31/2024 01/01/2024, 10/24/2022 Diabetes: Hemoglobin A1C 01/03/2025 025, 07/02/2024, 04/02/2024, Additional history exists SDOH Screening 06/25/2025 06/25/2024 Alcohol/Substance Use Screening 10/03/2025 10/03/2024 Depression Screening 10/03/2025 10/03/2024, 10/04/19 25 Diabetes: Foot Exam 10/03/2025 10/03/2024, 10/03/2024, 10/03/2024, Additional history exists Eye Exam 11/20/2025 11/20/2024, 06/23/2021 Tobacco Screening 01/19/2026 01/19/2025 DTaP/Tdap/Td Vaccines (2 - Td or Tdap) [...] 3+ VIEWS RIGHT Routine 3:00 PM EDT SED RATE BY MODIFIED WESTERGREN Routine 01/20/2025 2:10 PM EDT LACTIC ACID Routine 01/20/2025 2:10 PM EDT C-REACTIVE PROTEIN Routine 01/20/2025 2: 10 PM EDT COMPREHENSIVE METABOLIC PANEL Routine 01/20/2025 2:10 PM EDT CBC WITH AUTO DIFFERENTIAL Routine 01/20/2025 2:10 PM EDT BASIC METABOLIC PANEL Routine 12/31/2024 12:25 PM EDT GLUCOSE, WHOLE BLOOD Routine 12/01/2024 11:07 AM EDT AMB REFERRAL TO OPHTHALMOLOGY Routine 11/20/2024 Type 2 diabetes mellitus with stage 3 chronic kidney disease, with long-term current use of insulin, unspecified whether stage 3a or 3b CKD ([facility]) VITAMIN D,25-OH,TOTAL,IA Routine 10/29/2024 11:16 AM EDT ALBUMIN Routine 10/29/2024 11:16 AM EDT CALCIUM Routine 10/29/2024 11:16 AM EDT PTH, INTACT WITHOUT CALCIUM Routine 10/29/2024 11:16 AM EDT POCT GLYCATED HEMOGLOBIN, TOTAL Routine 10/03/2024 11:19 AM EDT Type 2 diabetes mellitus with stage 3 chronic kidney disease, with long-term current use of insulin, unspecified whether stage 3a or 3b CKD (CMS/HCC) LIPID PANEL WITH REFLEX TO DIRECT LDL Routine 01/01/2024 10:37 AM EDT Type 2 diabetes mellitus with stage 3 chronic kidney disease, with long-term current use of insulin, unspecified whether stage 3a or 3b CKD (CMS/HCC) HM COLONOSCOPY Routine 03/15/2022 from Last 3 Months or Most Recently Relevant to Health Maintenance Results * XR Calcaneus 2 Views Bilateral (01/20/2025 3:14 PM EDT) Anatomical Region Laterality Modality Lower Extremities, Calcaneus Bilateral Rad iographic Imaging 01/20/2025 3:14 PM EDT Narrative 01/20/2025 3:47 PM EDT [place] [address] XRay Report Signed Patient: Sofiya Julian MR#: [id number] : 1950 Acct:[id number] Age/Sex: 74 / F ADM Date: 01/20/25 Loc: HO.ED Attending Dr: Ordering Physician: Vasyl Alarcon MD Date of Service: 01/20/25 Procedure(s): XR Calcaneus Chavo min 2V Accession Number(s): [id number] cc: Ana María Bryan MD; Vasyl Alarcon [...] OV> 01/20/25 1545 DD/ 13 TD/TT: 01/20/251514 Examining Officer: JESSICA Procedure Note Donotuseinterpreter, Image - 01/20/2025 [place] [address] XRay Report Signed Patient: Sofiya Julian [facility]#: [id number] : 1950Acct:[id number] Age/Sex: 74 / FADM Date: 01/20/25 Loc: HO.ED Attending Dr: Ordering Physician: Vasyl Alarcon MD Date of Service: 01/20/25 Procedure(s): XR Calcaneus Chavo min 2V Accession Number(s): [id number] cc: Ana María Bryan MD; Vasyl Alarcon [...] Fallon MD in OV> 01/20/25 1545 DD/ TD/TT: 01/20/251514 Examining Officer: JESSICA [facility] External Provider IMG XR PROCEDURES Final Result * XR Foot 3+ Views Right (01/20/2025 3:00 PM EDT) Anatomical Region Laterality Modality Lower Extremities, Foot Right Radiogra phic Imaging 01/20/2025 3:00 PM EDT Narrative 01/20/2025 3:44 PM EDT [place] [address] XRay Report Signed Patient: Sofiya Julian MR#: [id number] : 1950 Acct:[id number] Age/Sex: 74 / F ADM Date: 01/20/25 Loc: HO.ED Attending Dr: Ordering Physician: Eros Palm Date of Service: 01/20/25 Procedure(s): XR foot RT min 3V Accession Number(s): [id number] cc: Eros Palm; Ana María Bryan MD [...] Roxana Fallon MD 01/20/2025 03:41 PM EDT RP Dictated By: Roxana Fallon MD Signed By: <Electronically signed by Roxana Fallon MD in OV> 01/20/25 1541 DD/ 1500 TD/TT: 01/20/25 1512 Examining Officer: JESSICA Procedure Note Donotuseinterpreter, Image - 01/20/2025 [place] [address] XRay Report Signed Patient: Sofiya Julian [facility]#: [id number] : 1950Acct:[id number] Age/Sex: 74 / FADM Date: 01/20/25 Loc: .ED Attending Dr: Ordering Physician: Eros Palm Date of Service: 01/20/25 Procedure(s): XR foot RT min 3V Accession Number(s): [id number] cc: Eros Palm; Ana María Bryan MD [...] Roxana Fallon MD 01/20/2025 03:41 PM EDT RP Dictated By: Roxana Fallon MD Signed By: <Electronically signed by Roxana Fallon MD in OV> 01/20/25 1541 DD/ 1500 TD/TT: 01/20/25 1512 Examining Officer: JESSICA [facility] External Provider IMG XR PROCEDURES Final Result * (ABNORMAL) CBC auto differential (01/20/2025 2:10 PM EDT) White Blood Count 12.1(H) 4.8 - 10.8 X10*3/uL [facility] Red Blood Count 3.99(L) 4.20 - 5.50 X10*6/uL [facility] Hemoglobin 12.2 12.0 - 16.0 g/dl [facility] Hematocrit 37.8 37.0 - 47.0 % [facility] Mean Corpuscular Volume 94.7 80.0 - 98.0 fL [facility] Mean Corpuscular Hemoglobin 30.6 27.0 - 33.0 pg [facility] Mean Corpuscular HGB Conc 32.3 31.0 - 35.0 g/dl [facility] Red Cell Distribution Width 16.9(H) 11.0 - 16.0 % [facility] Platelet Count 234 160 - 400 X10*3/uL [facility] Mean Platelet Volume 11.9 9.4 - 12.3 fL [facility] Neutrophils Percent Auto 85.6(H) 45 - 73 % [facility] Imm Gran Pct Auto 0.5(H) 0.0 - 0.4 % [facility] Lymphocytes Percent Auto 9.5(L) 20 - 40 % [facility] Monocytes Percent Auto 3.8 2 - 11 % [facility] Eosinophils Percent Auto 0.3 0 - 4 % [facility] Basophils Percent Auto 0.3 0 - 2 % [facility] NRBC Pct Auto 0.0 0.0 - 0.2 /100WBC [facility] Neutrophils Absolute Auto 10.3(H) 2.0 - 8.3 x10*3/uL [facility] Imm Gran Abs Auto 0.06(H) 0.00 - 0.03 X10*3/uL [facility] Lymphocytes Absolute Auto 1.2 1.2 - 4.9 X10*3/uL [facility] Monocytes Absolute Auto 0.5 0.1 - 1.2 X10*3/uL [facility] Eosinophils Absolute Auto 0.0 0.0 - 0.4 X10*3/uL [facility] Basophils Absolute Auto 0.0 0.0 - 0.2 X10*3/uL [facility] NRBC Abs Auto 0.000 0.0 - 0.012 X10*3/uL [facility] 01/20/2025 2:10 PM EDT 01/20/2025 2:19 PM EDT us Generic External Data Provider LAB BLOOD ORDERAB LES Final Result Performing Organization Address [facility] Co de Phone Number [facility] [address] [place] [phone] * Sed Rate by Modified Deshawnren (01/20/2025 2:10 PM EDT) Erythrocyte Sedimentation Rate 17 0 - 20 MM/HR [facility] Comment:Patients with polycy themia and many hemoglobin abnormalitiesmay have depressed sed rates whereas patients with anemiamay have elevated sed rates. 01/20/2025 2:10 PM EDT 01/20/2025 2:19 PM EDT Generic External Data Provider LAB BLOOD ORDERAB LES Final Result Performing Organization Address [facility]/ZIP Co de Phone Number [facility] [address] [place] [phone] * C-reactive Protein (01/20/2025 2:10 PM EDT) Pathologist [facility] C Reactive Protein 0.41 < or = 0.50 mg/dL [facility] 01/20/2025 2:10 PM EDT 01/20/2025 2:19 PM EDT Generic External Data Provider LAB BLOOD ORDERAB LES Final Result Performing Organization Address [facility]/ZIP Co de Phone Number [facility] [address] [place] [phone] * Lactic Acid (01/20/2025 2:10 PM EDT) [facility] Lactic Acid 1.4 0.5 - 2.0 mmol/L [facility] 01/20/2025 2:10 PM EDT 01/20/2025 2:19 PM EDT Generic External Data Provider LAB BLOOD ORDERAB LES Final Result Performing Organization Address [facility] Co de Phone Number [facility] [address] [place] [phone] * (ABNORMAL) Comprehensive Metabolic Panel (01/20/2025 2:10 PM EDT) Pathologist [facility] Sodium 140 135 - 145 mmol/L [facility] Potassium 4.7 3.3 - 5.1 mmol/L [facility] Chloride 110(H) 96 - 108 mmol/L [facility] Carbon Dioxide 23 22 - 29 mmol/L [facility] Anion Gap 12 12 - 20 [facility] Urea Nitrogen (BUN) 40(H) 9 - 16 mg/dL [facility] Creatinine, Serum 1.08 0.5 - 1.4 mg/dL [facility] Creatinine Clr Calc Pharmacy 30.7 [facility] Comment:Provided height and weight: 144.78 cm,50.349 kg.eGFR (calculated from the MDRD study equation) and eCrCl(calculated from the Cockcroft-Gault equation) are based ondifferent parameters and may not yield comparable results.If eCrCl result is absurd, please check patient'sheight/weight. Estimated Glomerular Filt Rate 49 [facility] Comment:Chronic Kidney Disea se: Estimated GFR < 60 mL/min/1.30f4Ukesmb Kidney Disease: Estimated GFR < 15 mL/min/1.73m2 Glucose 137(H) 60 - 115 mg/dL [facility] Calcium 9.3 8.4 - 10.2 mg/dL [facility] Bilirubin, Total 0.5 0.0 - 1.0 mg/dL [facility] Aspartate Amino Transferase 32(H) 5 - 31 U/L [facility] Alanine Aminotransferase 24 0 - 31 U/L [facility] Total Protein 7.5 6.5 - 8.0 g/dL [facility] Albumin Level 4.1 3.5 - 5.0 g/dL [facility] Alkaline Phosphatase 56 39 - 117 U/L [facility] 01/20/2025 2:10 PM EDT 01/20/2025 2:19 PM EDT us Generic External Data Provider LAB BLOOD ORDERAB LES Final Result [facility] [address] [place] [phone] * (ABNORMAL) Basic Metabolic Panel (12/31/2024 12:25 PM EDT) Sodium 140 135 - 145 mmol/L [facility] Potassium 4.6 3.3 - 5.1 mmol/L [facility] Chloride 105 96 - 108 mmol/L [facility] Carbon Dioxide 29 22 - 29 mmol/L [facility] Anion Gap 11(L) 12 - 20 [facility] Urea Nitrogen (BUN) 30(H) 9 - 16 mg/dL [facility] Creatinine, Serum 0.89 0.5 - 1.4 mg/dL [facility] Estimated Glomerular Filt Rate >60 [facility] Comment:Chronic Kidney Disea se: Estimated GFR < 60 mL/min/1.09p7Lpmxct Kidney Disease: Estimated GFR < 15 mL/min/1.73m2 Glucose 218(H) 60 - 115 mg/dL [facility] Calcium 9.5 8.4 - 10.2 mg/dL [facility] 12/31/2024 12:2 5 PM EDT 12/31/2024 12:25 PM EDT Generic External Data Provider LAB BLOOD ORDERAB LES Final Result Performing Organization Address City/[facility]/ZIP Co de Phone Number [facility] [address] [place] [phone] * Glucose, Whole Blood (12/01/2024 11:07 AM EDT) Glucose, Whole Blood 109 60 - 115 mg/dL [facility] Comment:METER #: [id number] 0Testing performed in the Endocrinology Department [address], [address], [facility]. 12/01/2024 11:0 7 AM EDT 12/01/2024 11:10 AM EDT Generic External Data Provider LAB BLOOD ORDERAB LES Final Result Performing Organization Address City/[facility]/ZIP Co de Phone Number [facility] [address] [place] [phone] * Vitamin D, 25-Hydroxy, Total, Immunoassay (10/29/2024 11:16 AM EDT) Vitamin D 25-OH Total 37.9 >30 ng/mL [facility] Comment: Health Based Reference Values*< 20 ng/mL [id number] ng/mL Insufficient> 30 ng/mL Sufficient*Carlos Manuel BERRY. [...] ORDERAB LES Final Result Performing Organization Address City/[facility]/ZIP Co de Phone Number [facility] [address] [place] [phone] * (ABNORMAL) PTH, Intact Without Calcium (10/29/2024 11:16 AM EDT) Parathyroid Hormone, Intact 119.3(H) 8.7 - 77.1 pg/mL [facility] 10/29/2024 11:1 6 AM EDT 10/29/2024 11:16 AM EDT Generic External Data Provider LAB BLOOD ORDERAB LES Final Result Performing Organization Address City/[facility]/ZIP Co de Phone Number [facility] [address] [place] [phone] * Calcium (10/29/2024 11:16 AM EDT) Calcium 9.3 8.4 - 10.2 mg/dL [facility] 10/29/2024 11:1 6 AM EDT 10/29/2024 11:16 AM EDT us Generic External Data Provider LAB BLOOD ORDERAB LES Final Result Performing Organization Address City/[facility]/ZIP Co de Phone Number [facility] [address] [place] [phone] * Albumin (10/29/2024 11:16 AM EDT) Albumin Level 4.0 3.5 - 5.0 g/dL [facility] 10/29/2024 11:1 6 AM EDT 10/29/2024 11:16 AM EDT us Generic External Data Provider LAB BLOOD ORDERAB LES Final Result Performing Organization Address [facility] Co de Phone Number [facility] [address] [place] [phone] * (ABNORMAL) POCT HGB A1C (10/03/2024 11:19 AM EDT) Hemoglobin A1C 8.0(A) 4.0 - 5.7 % QC Media Lot # [id number] Lot# Expiration Date Blood 10/03/2024 11:1 9 AM EDT us Ana María Bryan MD POINT OF CARE TEST ENTER /EDIT ORDERABLES Final Result * Lipid Panel with Reflex to Direct LDL (01/01/2024 10:37 AM EDT) Triglycerides 97 <150 mg/dL [facility] Comment:Desirable Triglyceri de: less than 150 mg/dLBorderline High Triglyceride 150-199 mg/dLHigh Triglyceride: 200-499 mg/dLVery High Triglyceride: greater than or equal to 5OO mg/dL Cholesterol 138 <200 mg/dL [facility] Comment:Desirable Cholestero l: less than 200 mg/dLBorderline High Cholesterol: 200-239 mg/dLHigh Cholesterol: greater than 239 mg/dL LDL Cholesterol Calculated 61 <100 mg/dL [facility] Comment:Desirable LDL: less than 100 mg/dLNear Optimal/Above Optimal LDL: 110- 129 mg/dLBorderline High LDL: 130-159 mg/dLHigh LDL: 160-189 mg/dLVery High LDL: greater than or equal to 190 mg/dL HDL Cholesterol 58 >40 mg/dL [facility] Comment:Desirable HDL: great er than 40 mg/dL Note: This HDL assay may give artificially low results in patients with liver disease. Blood 01/01/2024 10:3 7 AM EDT 01/01/2024 11:26 AM EDT Ana María Bryan MD LAB BLOOD ORDERABLES Fin al Result [facility] [address] [place] [address] [phone] * Colonoscopy (03/15/2022) Colonoscopy Normal Normal us Ana María Bryan MD HEALTH MAINTENANCE Final Result from Last 3 Months or Most Recently Relevant to Health Maintenance Insurance [facility] [id number] [facility] Care Teams Miller Apprentice Relationship Specialty Start Date End Date Ana María Bryan MD [address] [place] [phone] PCP - General Family Medicine 03/26/18
--- OUTSIDE RECORDS SUMMARY | 2025-01-20 19:04 | XMS_ITS | Encounter Summary ---
Author Organization [employer] Address [address] [facility] 7t [place] [address] Care Team Providers Care Herbologist Name Role Phone Ana María Bryan MD Primary Care Provider + Encounter Details Date Type Department Care Team (Late st Contact Info) Description 05/08/2022 [facility] [employer] Management [address] [place] [address] Ana María Bryan MD [address] [place] [address] Social History Tobacco Use Types Packs/Day Years [...] Info) Description 01/23/2025 11:00 AM EDT Immunization [facility] [address] [place] [phone] 04/01/2025 10:15 AM EST Office Visit [facility] [address] [place] [phone] Ana María Bryan MD [address] [place] [phone] documented as of this encounter Visit Diagnoses Not on filedocumented in this encounter Additional Health Concerns Assessment Noted Time PHQ-9 Depression Total Score: 1 04/13/19 23 10:26 AM EST documented as of this encounter Care Teams Herbologist Relationship Specialty Start Date End Date Ana María Bryan MD [address] [place] [phone] PCP - General Family Medicine 03/26/18 documented as of this encounter
--- OUTSIDE RECORDS SUMMARY | 2025-01-20 19:04 | XMS_ITS | Encounter Summary ---
Author Organization [employer] Address [address] [facility] 7t [place] [address] Care Team Providers Care Stock Unloader Name Role Phone Ana María Bryan MD Primary Care Provider + Reason for Visit * Reason Comments Med Refill Encounter Details Date Type Department Care Team (Late st Contact Info) Description 11/18/2023 Refill [facility] [address] [place] [address] Ana María Bryan MD [address] [place], [place] [phone] Acute deep vein thrombosis (DVT) of proximal [...] Info) Description 01/23/2025 11:00 AM EDT Immunization [facility] [address] [place] [phone] 04/01/2025 10:15 AM EST Office Visit [facility] [address] [place] [phone] Ana María Bryan MD [address] [place] [phone] documented as of this encounter Visit Diagnoses Diagnosis Acute deep vein thrombosis (DVT) of proximal vein of right lower extremity (HCC) documented in this encounter Additional Health Concerns Assessment Noted Time PHQ-9 Depression Total Score: 1 04/13/19 23 10:26 AM EST documented as of this encounter Care Teams Stock Unloader Relationship Specialty Start Date End Date Ana María Bryan MD [address] [place] [phone] PCP - General Family Medicine 03/26/18 documented as of this encounter
--- OUTSIDE RECORDS SUMMARY | 2025-01-20 19:05 | XMS_ITS | Encounter Summary ---
Author Organization [facility] Address [address] [facility] [address] [place] [phone] Phone Care Team Providers Care City Council Member Name Role Phone Ana María Bryan MD Primary Care Provider + Encounter Details Date Type Department Care Team (Late st Contact Info) Description 03/15/2022 Procedure Pass [facility] Endoscopy Admitting Dept Virtual Department [address] [place] [address] Social History Tobacco Use Types Packs/Day Years [...] on filedocumented in this encounter Care Teams City Council Member Relationship Specialty Start Date End Date Ana María Bryan MD [address] [place] [address] [place] [phone] PCP - General Internal Medicine 03/13/22 documented as of this encounter Additional Source Comments The information contained in this document represents components of the legal health record. It is not the complete legal health record.[facility]
--- OUTSIDE RECORDS SUMMARY | 2025-01-20 19:05 | XMS_ITS | Encounter Summary ---
Author Organization [facility] Address [address] [facility] [address] [place] [phone] Phone Care Team Providers Care Hook Tender Name Role Phone Ana María Bryan MD Primary Care Provider + Encounter Details Date Type Department Care Team (Late st Contact Info) Description 03/13/2022 Procedure Pass [facility], Ct Scan - [address] [address] Social History Tobacco Use Types Packs/Day Years [...] 03/13/2022 11:08 AM Susannah Flores RN * Ava Suicide Severity Rating Scale (Screener/Recent Self-Report) Question [...] documented as of this encounter Care Teams Hook Tender Relationship Specialty Start Date End Date Ana María Bryan MD [address] [place] [phone] PCP - General Internal Medicine 03/13/22 documented as of this encounter Additional Source Comments The information contained in this document represents components of the legal health record. It is not the complete legal health record.[facility]
--- OUTSIDE RECORDS SUMMARY | 2025-01-20 19:05 | XMS_ITS | Clinical Summary ---
Author Organization [facility] Address [address] [facility] [address] [place] [phone] Phone Care Team Providers Care Survey Cad Technician Name Role Phone Ana María Bryan [...] she states she has never had an MD/stents or stroke and has never had any [...] mg daily. Jardiance held at admission. -Monitor rixju-rm-[id number] glucose with meals and nightly, and every [...] this topic Medical Devices Implanted Type Area Gauger Chief Delivery Device Identifier Shelf Expiration Date Model / [...] 72 Admit Type: Inpatient Gender: Female Room: [place] [address] Referring MD: Ana María Bryan MD Exam [...] monitored continuously. The Olympus adult variable colonoscope [id number] #4 was introduced through the anus and [...] AM Procedure Date: 03/15/2022 7:17:58 AM [address] [place] [address] us Ana María Bryan MD GI PROCEDURE ORDERABLES Final Result from Last 3 Months or Most Recently Relevant to Health Maintenance Insurance [facility] MEDICARE REPLACEMENT ALEJANDRA ALVAREZ [id number] [facility] MEDICARE REPLACEMENT [facility] MEDICARE REPLAC[facility] MEDICARE REPLACEMENT [facility] MEDICARE REPLACEMENT [facility] MEDICARE REPLACEMENT [facility] MEDICARE REPLACEMENT [facility] MEDICARE REPLACEMENT Advance Directives For more information, please contact: [phone] (9AM - 5PM [facility], Sunday-Sunday) Documents on File Type Date Recorded Patient Mammography Technologist Expl anation MOLST 03/22/2022 1:22 PM * Full Code (Latest Code Status on File) Date Activated Date Inactivated Comments 03/24/2022 5:08 PM Question Answer Comments Code Status Confirmed With: Patient * Full Code Date Activated Date Inactivated Comments 03/13/2022 5:52 PM 03/24/2022 5:08 PM Question Answer Comments Code Status Confirmed With: PatientFamily Care Teams Survey Cad Technician Relationship Specialty Start Date End Date Ana María Bryan MD [address] [place] [phone] PCP - General Internal Medicine 03/13/22 Additional Source Comments The information contained in this document represents components of the legal health record. It is not the complete legal health record.[facility]
--- OUTSIDE RECORDS SUMMARY | 2025-01-20 19:05 | XMS_ITS | Clinical Summary ---
Author Organization [facility] Address [address] [place] [address] Care Team Providers Care Welding Pantograph Operator Name Role Phone Pcp, No Primary [...] Density (Females,Ag es 65 and older) 2014 RSV Vaccine 50 years and old er and Patients (1 - 1-dose 75+ series) 2024 Influenza Vaccine 10/24/2024 COVID-19 Vaccine ( - 2023-2 5 season) 2024 Hepatitis B Vaccines Aged Out No long er eligible based on patient's age to complete this topic Insurance [facility] MEDICARE MEDICAID OUT OF STATE [facility] Care Teams Welding Pantograph Operator Relationship Specialty Start Date End Date Pcp, No [address] [place] [address] PCP - General 12/17/19
== END 2025-01-20 17:17 | disposition home or self-care (01) ==
PROVIDERS: Physician Assistant; Emergency Provider Emergency Medicine; PCP Internal Medicine
DX: L08.9 Local infection of the skin and subcutaneous tissue, unspecified (principal); M79.674 Pain in right toe(s); M79.671 Pain in right foot; M77.31 Calcaneal spur, right foot; I10 Essential (primary) hypertension; E11.9 Type 2 diabetes mellitus without complications; Z79.4 Long term (current) use of insulin; E78.5 Hyperlipidemia, unspecified
CPT/HCPCS: 36415; 73630; 73650; 80053; 83605; 85025; 85652; 86140; 87040; 99283; 99284

== ENCOUNTER → 2025-01-20 13:48 | Outpatient (BNV) | payer OTHER, SELFPAY | PROVIDERS: Emergency Provider Emergency Medicine; PCP Internal Medicine; Visit Provider Radiology Diagnostic Radiology | DX: M79.674 Pain in right toe(s) (principal) | CPT/HCPCS: 73630 ==

== ENCOUNTER → 2025-02-26 15:01 | Outpatient (REF) | payer OTHER, SELFPAY ==
[2022-07-31 10:27] VITALS: BP 179/80; PULSE 83; O2SAT 99
--- NOTE | 2022-07-31 10:37 | PM.HEMONCCN ---
Subjective - Subjective Chief complaint: Consult for: Normochromic normocytic anemia. Patient: new to practice Consult date: 07/31/22 Requesting Physician: Donna Gomez. Primary Care Provider: Donna Bryan. Medical Summary: DIAGNOSIS: Normochromic normocytic anemia. HPI - Consult Narrative Reason for consult: Consult for: Normochromic normocytic anemia. Narrative: Sofiya Gallegos is a 72 year old lady referred by Donna Gomez, on account of normochromic normocytic anemia. Patient was originally referred here back in March. Somehow the referral caught delayed. Review of her labs revealed: 03/24/2022 hemoglobin 5.6. 04/13/2022 hemoglobin: 9.6. She was admitted to [facility] in February. She received blood transfusions. She ended up getting a GI evaluation. PAST MEDICAL HISTORY: She had a colonoscopy here in 2019 which revealed: Cecum ? Normal Ascending Colon ? Two 3-5 mm sessile polyps removed with cold biopsy Transverse Colon - Two 5-6 mm sessile polyps removed with cold biopsy Descending Colon ? One 4-5 mm sessile polyps removed with cold biopsy Sigmoid Colon ? Moderate diverticulosis Rectum ? Normal Ano-rectum - Normal Post Procedure Diagnosis: Colonoscopy Findings: Five polyps removed Moderate diverticulosis seen in the sigmoid colon Plan: Await pathology results. Resume Plavix today. Patient has an appointment on 10/03/19 in the GI Clinic with Christine Oliver NP. FAMILY HISTORY: Sister had breast and uterine cancer. SOCIAL HISTORY: She has never worked. She is . Has 3 children. She denies smoking. Denies alcohol. ROS: Her energy level is not too bad she calls it regular. Denies any fever nor chills. Appetite is good she eats small portions. She has lost some weight. She has headaches. No dizziness. She denies chest pain or trouble breathing. No cough no sputum. She has abdominal pain and bloating. She had been taking iron pills. That makes her constipated. She has previously had a renal transplant about 10 years ago. She follows with [facility]al at [facility]. She denies any new problems. She has joint pains. She has arthritis and osteoporosis. She is on Prolia Q 6 monthly. She gets tired upon walking. But no focal weakness. She denies depression. She denies skin rashes no pruritus. Review of Systems - Constitutional Reports system reviewed and no additional complaints, except as documented, Reports weight loss, Denies fever(s), Denies weakness, Denies weight gain - Eyes Reports system reviewed and no additional complaints, except as documented - ENT Reports system reviewed and no additional complaints, except as documented - Cardiovascular Reports system reviewed and no additional complaints, except as documented - Respiratory Reports no additional respiratory complaints - Gastrointestinal Reports system reviewed and no additional complaints, except as documented - Genitourinary Reports no additional female genitourinary complaints - Musculoskeletal Reports system reviewed and no additional complaints, except as documented - Integumentary/Breasts Skin/Breast: Reports no additional skin complaints - Neurologic Reports system reviewed and no additional complaints, except as documented - Psychiatric Reports system reviewed and no additional complaints, except as documented - Endocrine Reports no additional endocrine complaints - Hematologic/Lymphatic Reports system reviewed and no additional complaints, except as documented - Allergic/Immunologic Reports system reviewed and no additional complaints, except as documented Oncology Screenings - ECOG Performance Status ECOG Performance Status: 0 [facility] Medical History: Medical History (Last Reviewed 07/31/22 @ 10:29 by Layla Garcia) Diabetes type 2, uncontrolled Diabetic nephropathy associated with type 2 diabetes mellitus Diabetic retinopathy associated with type 2 diabetes mellitus Dyslipidemia Hypertension FPC (current) use of insulin Osteoporosis Vitamin D deficiency Family History: Family History (Last Reviewed 07/31/22 @ 10:29 by Layla Garcia) Father No problems noted. Mother No problems noted. Sister Breast cancer Diabetes Maternal Aunt Cancer Maternal Uncle Cancer Surgical History: Surgical History (Last Reviewed 07/31/22 @ 10:29 by Layla Garcia) History of renal transplant Hx of arteriovenostomy for renal dialysis Hx of section Hx of colonoscopy Hx of tonsillectomy Social History: Social History (Last Updated 07/31/22 @ 10:24 by Layla Garcia) Living Situation History: Household Members: Spouse Alcohol History Details: 1. How often do you have a drink containing alcohol?: a. Never Tobacco History: Patient Tobacco Use Status: Never used Tobacco Substance Use History: Use of substances other than those prescribed or required for medical reasons: No Domestic Abuse History: Have you been hit, kicked, punched, or otherwise hurt by someone within the past year? If so, by whom?: No Homicidal Assessment: Do you have thoughts of harming others: None Do you have a plan to hurt others: No Plan Occupation Assessmet: service: No Current occupational status: retired Sex/Gender Assessment: Gender identity: Female Home Medications and Allergies Home Medications Medication Instructions Recorded Confirmed Type amlodipine 10 mg tablet 10 mg PO DAILY 03/30/20 07/31/22 History docusate sodium 100 mg capsule 100 mg PO BID 03/30/20 07/31/22 History mycophenolate sodium 180 mg 180 mg PO BID 03/30/20 07/31/22 History tablet,delayed release pantoprazole 40 mg tablet,delayed 40 mg PO DAILY 03/30/20 07/31/22 History release prednisone 5 mg tablet 5 mg PO DAILY 03/30/20 07/31/22 History tacrolimus 1 mg capsule, 3 mg PO BID 03/30/20 07/31/22 History immediate-release trazodone 50 mg tablet 50 mg PO BEDTIME 03/30/20 07/31/22 History gabapentin 100 mg capsule 100 mg PO DAILY 06/21/20 07/31/22 History acetaminophen 500 mg tablet 500 mg PO NEEDED PRN Pain 10/01/20 07/31/22 History fluticasone propionate 50 1 - 2 spray intranasal DAILY PRN 12/07/21 07/31/22 History mcg/actuation nasal Allergy Symptoms spray,suspension apixaban 5 mg tablet (Eliquis) 5 mg PO DAILY 04/19/22 07/31/22 History ascorbic acid (vitamin C) 500 mg 500 mg PO QAM 04/19/22 07/31/22 History tablet (Vitamin C) ferrous sulfate 325 mg (65 mg 325 mg PO QAM 04/19/22 07/31/22 History iron) tablet (FeroSul) aspirin 81 mg tablet,delayed 81 mg PO QAM 07/31/22 07/31/22 History release empagliflozin 25 mg tablet 25 mg PO QAM 07/31/22 07/31/22 History (Jardiance) lisinopril 2.5 mg tablet 2.5 mg PO QAM 07/31/22 07/31/22 History patiromer calcium sorbitex 8.4 8.4 g PO DAILY 07/31/22 07/31/22 History gram oral powder packet (Veltassa) Allergies Allergy/AdvReac Type Severity Reaction Status Date / Time diphenhydramine AdvReac Anxiety Verified 07/31/22 10:24 [From Benadryl] Physical Exam Vital signs: Vital Signs Pulse 83 07/31/22 10:27 BP 179/80 H 07/31/22 10:27 Pulse Ox 99 07/31/22 10:27 O2 Del Method Room Air 07/31/22 10:27 Intake & Output 07/30/22 07/31/22 07/31/22 18:59 06:59 18:59 Other: Weight 49.6 kg Weight in Grams 33625 Weight 49.6 kg - Constitutional Present: no acute distress - Routine HEENT Exam Head: Present: normocephalic Eye: Present: normal appearance ENT: Present: mucous membranes moist - Routine Neck Exam Present: supple - Routine Respiratory Exam Present: CTAB - Routine Cardiovascular Exam Cardiovascular: Present: RRR, S1, S2 - Routine Abdominal Exam Present: normal bowel sounds, nontender - Routine Extremities Exam Present: nontender - Routine Skin Exam Present: intact - Routine Neurological Exam Present: alert, oriented X3 - Detailed Neurological Exam: Coma Scale Eye Opening: Spontaneous (4) Verbal Response: Oriented (5) - Routine Psychiatric Exam Present: normal affect Hem/Onc Consult Result - Labs CBC & Chem 7: 07/31/22 11:08 07/31/22 11:08 Assessment and Plan Patient Active problem list reviewed?: Yes (1) Normochromic normocytic anemia Status: Acute Assessment and plan: This is a pleasant 72-year-old lady with recently diagnosed normochromic normocytic anemia. DIFFERENTIAL DIAGNOSIS: 1. IRON DEFICIENCY ANEMIA: She was admitted to [facility] with hemoglobin of 5.6 back in February. She had GI bleeding. She received blood transfusion. Colonoscopy revealed polyps. These were removed. Recent hemoglobin from 07/11: 11.6. Iron studies: 377/400/94/19. 2. ANEMIA OF CHRONIC DISEASE: She does have CKD. She has actually had a kidney transplant. 3. HEMOLYTIC ANEMIA: Is in the differential. 4. UNDERLYING MYELO INFILTRATIVE DISORDER: Is a possibility. MDS versus multiple myeloma versus lymphoma. PLAN: I will proceed with further evaluation. Will check her CBC D today. Hemoglobin is actually 13. Checked iron studies and ferritin: 97/to 94/33/57. Check B12 and folate levels: 735/11.5. Check LDH: 181 and SIEPP: No monoclonal protein. At this point her blood count is normal. Will follow it over time. She will return in 3 months for a follow-up. I have requested the records from [facility] in the meantime. All her questions were answered to her satisfaction. Thank you, Cc: Dr. Ana María Gomez. Addendum: Admission note from [facility] on 03/24 till 03/25/2022: 71-year-old lady with past medical history of renal transplant recent diagnosis of schema colitis, CKD, DM sleep, recent DVT upper extremity on the right, presented to [facility], on account of fatigue, maroon-colored stool. Eliquis, Aspirin and Plavix were held. Her hemoglobin stabilized in the hospital. Hemoglobin was noted to be 7. She was transfused. Patient was discharged a week ago after being treated for melena and colonoscopy revealed ischemic colitis. During hospital stay she was noted to have right upper extremity swelling and was diagnosed with DVT. She was placed on Eliquis in addition to Plavix and aspirin. CT abdomen pelvis revealed small bilateral pleural effusion. Bowels small to moderate hiatus hernia. No distention or wall thickening. No masses or fluid. No adenopathy. No clear cause identified by CT for patient's symptoms. - Time Spent With Patient Time Spent with Patient (in minutes): 30
--- NOTE | 2022-07-31 11:19 | MHC.HEMONCMA ---
patient seen today for anemia, labs, vss, following up with 3 months
[2022-07-31 11:28] LABS: Baso%MD 0.5 %; Eos%MD 1.8 %; Hematocrit 43.9 % (37.0-47.0); Hemoglobin 13.9 g/dl (12.0-16.0); IG%MD 0.5 %; Lymph%MD 32.7 %; Mean Corpuscular HGB Conc 31.7 g/dl (31.0-35.0); Mean Corpuscular Hemoglobin 26.9 pg (27.0-33.0); Mean Corpuscular Volume 85.1 fL (80.0-98.0); Mono%MD 9.9 %; NRBC Abs Auto 0.000 X10*3/uL (0.0-0.012); NRBC Pct Auto 0.0 /100WBC (0.0-0.2); Neut%MD 54.6 %; Platelet Count 237 X10*3/uL (160-400); Red Blood Count 5.16 X10*6/uL (4.20-5.50); White Blood Count 8.2 X10*3/uL (4.8-10.8)
[2022-07-31 11:59] LABS: Atypical Lymph Absolute Manual 0.4 x10*3/uL; Atypical Lymphs Percent Manual 5 % (0-6); Band Neutrophils Percent 2 % (3-5); Basophils Abs Manual 0.1 X10*3/uL (0.0-0.2); Basophils Percent Manual 1 % (0-2); Lymphocytes Absolute Manual 2.5 X10*3/uL (1.2-4.9); Lymphocytes Percent Manual 31 % (20-40); Monocytes Absolute Manual 0.7 X10*3/uL (0.1-1.2); Monocytes Percent Manual 9 % (2-11); Neutrophils Absolute Manual 4.4 X10*3/uL (2.0-8.3); Neutrophils Percent Manual 52 % (45-73); RBC Morphology NOTED
[2022-07-31 12:00] LABS: Acanthocytes 3+ (>5) /OIF; Large Platelet PRESENT; Microcytosis 1+ (5-14) /OIF; Schistocytes 1+ (0-2) /OIF
[2022-07-31 12:01] LABS: Burr Cells 2+ (3-5) /OIF; Target Cells 1+ (5-14) /OIF
[2022-07-31 12:03] LABS: Alanine Aminotransferase 19 U/L (0-31); Albumin Level 4.3 g/dL (3.5-5.0); Alkaline Phosphatase 54 U/L (39-117); Anion Gap 11 (12-20); Aspartate Amino Transferase 20 U/L (5-31); Blood Urea Nitrogen 36 mg/dL (9-16); Calcium 10.3 mg/dL (8.4-10.2); Carbon Dioxide 27 mmol/L (22-29); Chloride 109 mmol/L (96-108); Estimated Glomerular Filt Rate 45; Iron 97 mcg/dL (30-160); Percent Iron Saturation 33 % (15-50); Potassium 5.1 mmol/L (3.3-5.1); Sodium 142 mmol/L (135-145); Total Iron Binding Capacity 294 mcg/dL (228-428); Total Protein 7.5 g/dL (6.5-8.0); Unsaturated Iron Binding 197 ug/dL
--- NOTE | 2022-07-31 12:10 | MHC.HEMONC ---
Lab called with critical glucose 56. This nurse called Pt daughter Geni to report Glucose and to have Sofiya eat something now. Pt is feeling ok per Daughter and daughter stated she will have her eat something now. Dr Austin aware.
[2022-07-31 12:17] LABS: Ferritin 57 ng/mL (10-250); Folate 11.5 ng/mL (> or = 4.0); Vitamin B12 735 pg/mL (200-900)
--- NOTE | 2022-10-31 15:04 | HE.ONCSEC ---
Bisi from [facility] called and asked to fax Dr notes from most recent visit. Faxed to [phone] consult notes from 07-31-22. Also let Bisi know pt was a no show for 10-31-22 f/u visit.
[2025-02-27 05:28] LABS: HBS Num1 1.54 mIU/mL (0-7.99); HBc Num1 0.13 S/CO (0.00-0.79); HBsAGNum1 0.30 S/CO (0.00-0.99); HIV Num 1 0.09 S/CO (0.00-0.99); Hepatitis B Surface Antigen Negative (Negative); ~HepC Num1 0.18 S/CO (0.00-0.79); ~Hepatitis B Surface Antibody NONREACTIVE (Nonreactive); ~Hepatitis C Antibody Nonreactive (Nonreactive)
== END | disposition home or self-care (01) ==
LOC: HO.LAB 05-18 11:06
PROVIDERS: PCP Internal Medicine; Visit Provider Internal Medicine Medical Oncology
DX: I82.621 Acute embolism and thrombosis of deep veins of right upper extremity (principal); D64.9 Anemia, unspecified; Z11.4 Encounter for screening for human immunodeficiency virus [HIV]
CPT/HCPCS: 36415; 80053; 82607; 82668; 82728; 82746; 82784; 83540; 83615; 85007; 85027; 86334; 86704; 86706; 86803; 87340; 87389; 99204

== ENCOUNTER 2025-03-02 10:06 | Outpatient (REF) | payer OTHER, SELFPAY ==
[2025-03-02 11:15] LABS: Microalbum/Creatinine Ratio Ur 55.4 ug/mg cr (<30)
[2025-03-02 11:17] LABS: Alanine Aminotransferase 11 U/L (0-31); Albumin Level 3.8 g/dL (3.5-5.0); Alkaline Phosphatase 61 U/L (39-117); Anion Gap 10 (12-20); Aspartate Amino Transferase 20 U/L (5-31); Blood Urea Nitrogen 28 mg/dL (9-16); Calcium 9.3 mg/dL (8.4-10.2); Carbon Dioxide 25 mmol/L (22-29); Chloride 106 mmol/L (96-108); Estimated Glomerular Filt Rate > 60; Potassium 4.3 mmol/L (3.3-5.1); Sodium 137 mmol/L (135-145); Total Protein 7.4 g/dL (6.5-8.0)
== END 2025-03-02 10:07 | disposition home or self-care (01) ==
LOC: HO.LAB 10:06
PROVIDERS: Physician Assistant; PCP Internal Medicine; Visit Provider Internal Medicine Endocrinology, Diabetes & Metabolism
DX: E11.22 Type 2 diabetes mellitus with diabetic chronic kidney disease (principal); I12.0 Hypertensive chronic kidney disease with stage 5 chronic kidney disease or end stage renal disease; N18.6 End stage renal disease; E11.65 Type 2 diabetes mellitus with hyperglycemia; Z94.0 Kidney transplant status; Z79.4 Long term (current) use of insulin; Z79.01 Long term (current) use of anticoagulants; Z79.899 Other long term (current) drug therapy
CPT/HCPCS: 36415; 80053; 82043; 82570; 82947; 83036; 99212

== ENCOUNTER 2025-03-02 10:47 | Outpatient (AMB) | payer OTHER, SELFPAY ==
[2025-03-02 10:49] VITALS: BP 160/56; PULSE 74; O2SAT 99; BMI 24.0
--- NOTE | 2025-03-02 10:49 | MHC.OFFVIS ---
Vital Signs 03/02/25 10:49 Height 4 ft 9 in Weight 110 lb 14.28 oz BMI 24.0 BP 160/56 H Blood Pressure Location Rt brachial Position Sitting Pulse 74 Pulse Source Pulse Oximeter Pulse Oximetry (%) 99 Oxygen Delivery Method Room Air Intake Visit Reasons: T2DM Intake Note: Patient present today for Type 2 Diabetes Mellitus Last Diabetic eye exam: Last exam was in June 2024 Last Podiatry Visit: Last visit was 2 weeks ago and was referred to Cardiovascular for her right foot. Random Glucose: 181 mg/dl HgA1C: 7.7% Interactive Art Director Required: Yes Interactive Art Director Language: Freight Loading Supervisor Services: Interactive Art Director Present Interactive Art Director Name: Kobe [id number] Information Interpreted: non-clinical & clinical Accompanied by: span Allergies diphenhydramine (From Benadryl) Adverse Reaction (Verified 03/02/25 10:59) Anxiety HPI HPI T2DM: Details: Patient is a 74-year-old female with a significant past medical history of diabetes, history of end-stage renal disease, s/p renal transplant, hypertension, hyperlipidemia, chronic anticoagulation, osteoporosis presenting today for a follow up regarding her diabetes. Security Operations Center Operator Kobe Hassan [place] [id number]. Patient is also accompanied by her daughter who is a caregiver. Dm- Her A1c is 7.7. She is currently on Lantus 12 units nightly, Humalog 2-6 units 3 times a day -does not always take the lantus in the evening. -She was getting utis with the jardiance and this was recently d/c'd by her arts and sciences dean. cgm-Gmi 8%, average glucose 195. Very hyperglycemic 19%, hyperglycemic 32%, in range 49%, hypoglycemic 0%. She denies any recent hypoglycemia On an GEORGETTE inhibitor Nephro: History of end-stage renal disease, s/p renal transplant 2011. Follows with Dr. Parr. CV: Blood pressure today in the office is 160/56. She is on lisinopril 2.5 mg. Cholesterol controlled with 80 mg of atorvastatin. Vasc: going to vascular surgery for her right foot. She was cutting her nails and injured herself and her analyst business analysis referred her to vascular surgery and she has an appointment tomorrow at [place]. she also gets pain in her legs with walking. Her pcp is aware. SHe is [facility] Medical History Vitamin D deficiency Hypertension Osteoporosis Diabetic retinopathy associated with type 2 diabetes mellitus Diabetic nephropathy associated with type 2 diabetes mellitus senior living (current) use of insulin Dyslipidemia Diabetes type 2, uncontrolled Surgical History History of esophagogastroduodenoscopy (EGD) Hx of colonoscopy Hx of section Hx of tonsillectomy Hx of arteriovenostomy for renal dialysis History of renal transplant Family History Father No problems noted. Mother No problems noted. Sister Breast cancer Diabetes Maternal Aunt Cancer Maternal Uncle Cancer Social History Household Members: Spouse Alcohol intake: never Patient Tobacco Use Status: Never used Tobacco service: No Current occupational status: retired Gender identity: Female Physical Exam Vital Signs: Last Vital Signs Pulse 74 03/02/25 10:49 BP 160/56 H 03/02/25 10:49 Pulse Ox 99 03/02/25 10:49 Oxygen Delivery Method Room Air 03/02/25 10:49 BMI result Body Mass Index 24.0 Const Orientation/consciousness: patient oriented x3 HEENT Ears: hearing grossly normal bilaterally Neck Thyroid: Thyroid normal Lymphatic: no lymphadenopathy noted Resp Auscultation: clear to auscultation bilaterally Cardio Rate: regular rate Rhythm: regular rhythm Heart sounds: S1 normal heart sound present and S2 normal heart sound present Neuro General: patient oriented x3, gait normal and no focal motor deficits Results AMB Hemoglobin A1c AMB Hemoglobin A1c 7.7 % Last Edit by ARTI Lawler on 03/02/25 11:11 Results Reviewed Results Reviewed: Laboratory Last Values Glucose (Clinic) 181 mg/dL (60-115) H 03/02/25 11:01 Assessment & Plan Assessment & Plan (1) Diabetic nephropathy associated with type 2 diabetes mellitus: Code(s): E11.21 - Type 2 diabetes mellitus with diabetic nephropathy Category: Medical Plan: switch lantus 12 units to AM dosing continue humalog 2-6 units follow up in 2-3 months or sooner pn (2) Hypertension: Code(s): I10 - Essential (primary) hypertension Category: Medical Plan: continue current plan Orders: Orders AMB Hemoglobin A1c Today E11.65 - Type 2 diabetes mellitus with hyperglycemia, Z13.9 - Encounter for screening, unspecified Coding Level of Care Code Est Pt Level 4 (03850) Complex visit Add On G2211 Diagnoses Diabetic nephropathy associated with type 2 diabetes mellitus E11.21 Hypertension I10
[2025-03-02 11:06] LABS: Glucose, Whole Blood 181 mg/dL (60-115)
== END 2025-03-02 11:23 | disposition home or self-care (01) ==
LOC: HO.ENCR 10:48
PROVIDERS: PCP Internal Medicine; Visit Provider Physician Assistant
DX: E11.21 Type 2 diabetes mellitus with diabetic nephropathy (principal); I10 Essential (primary) hypertension; Z13.9 Encounter for screening, unspecified; E11.65 Type 2 diabetes mellitus with hyperglycemia

== ENCOUNTER 2025-03-10 11:35 | Outpatient (AMB) | payer OTHER, SELFPAY ==
--- OUTSIDE RECORDS SUMMARY | 2025-03-03 12:04 | XMS_ITS | Encounter Summary ---
Author Organization [facility] Address [address] [place] [address] Care Team Providers Care B2B Outside Sales Representative Name Role Phone Ana María Bryan MD Primary Care Provider + [phone] Reason for Visit * Auth/Cert (Routine) Specialty Diagnoses / Procedures Referred By Contac t Referred To Contact Diagnoses Critical limb ischemia of right lower extremity (CMS/HCC V24, CMS/HCC V28) Critical limb ischemia of right lower extremity (CMS/HCC V24, CMS/HCC V28) [I70.221] Procedures [facility] ANGIOGRAPHY EXTREMITY UNILATERAL SUPERVISION & INTERPRETATION Angiography lower ext right Nando Botello MD [address] [place] [address] Phone: tel: fax: [facility]oa Bean [facility]er [address] [place] [phone] Phone: tel: Referral ID Status Reason Start Date Expiration Date Visits Re quested Visits Authorized [id number] 1 1 Encounter Details Date Type Department Care Team (Latest Contact Info) Description 03/03/2025 12:04 PM EST - 03/04/2025 7:04 PM EST Hospital Encounter [facility] Intermediate Care Unit [address] [place] [address] Nando Botello MD [address] [place] [phone] Vijay Brown MD [address] [place] [address] Ko Banerjee MD [address] [place] [id number] Critical limb ischemia of right lower extremity (CMS/HCC V24, CMS/HCC V28) Discharge Disposition: Home or Self Care Social History Tobacco Use Types Packs/Day Years Used Date Smoking Tobacco: Never Smokeless Tobacco: Never Alcohol Use Standard Drinks/Week Comments Not Currently 0 (1 standard drink = 0.6 oz pur e alcohol) Interpersonal Safety Answer Date Record ed Physical Abuse Unrecognized value 03/04/2025 Verbal Abuse Unrecognized value 03/04/2025 Comments Unknown Sex and Gender Information Value Date Recorded Sex Assigned at Female 02/27/2025 9:45 AM EST Legal Sex Female 2:31 PM EST Gender Identity Not on file Sexual Orientation Not on file documented as of this encounter Last Filed Vital Signs Vital Sign Reading Time Taken Comments Blood Pressure 144/49 03/04/2025 3:13 PM EST Pulse 66 03/04/2025 3:13 PM EST Temperature 36.2 C (97.2 F) 03/04/2025 3:13 PM EST Respiratory Rate 16 03/04/2025 3:13 PM EST Oxygen Saturation 96% 03/04/2025 3:13 PM EST Inhaled Oxygen Concentration - - Weight 49.9 kg (110 lb) 03/03/2025 12:52 PM EST Height 144.8 cm (4' 9 ) 03/03/2025 12:52 PM EST Body Mass Index 23.8 03/03/2025 12:52 PM EST documented in this encounter Functional Status * Calculated C-SSRS Risk Score (Lifetime/Recent) Answer Date of Assessment Author No Risk Indicated 03/04/2025 2:50 AM EST Chapito Arnold RN * Pierce Suicide Severity Rating Scale (Screener/Recent Self-Report) Question Answer Date of Assessment Author 1. Wish to be (Past 1 Month) No 025 2:50 AM EST Luci Arnold RN 2. Non-Specific Active Suici lyudmila Thoughts (Past 1 Month) No 03/04/2025 2:50 AM EST Luci Arnold RN 6. Suicidal Behavior (Lifetime) No 2:50 AM Luci Art RN documented as of this encounter Discharge Summaries * MINNA Oden - 03/04/2025 9:17 AM EST Discharge Final Diagnosis: Critical limb ischemia of right lower extremity ([facility] V24, CMS/[facility] V28) Hospital Course (include Reason for Hospitalization): 74 year old female Ivorian speaking female with history of CKD s/p renal transplant, IDDM, diabeticneuropathy, hypertension, hyperlipidemia, GERD, insomnia and critical limb ischemic of right lower extremity with dry gangrene of the heel, hallux and 4th toe. Patient underwent right lower extremity angiogram with orbital atherectomy and drug coated balloon angioplasty of suprageniculate poplitealartery (1.25 mm Diamondback orbital atherectomy device, 4 mm x 40 mm IN-PACT 018 DCB) by Dr. Guerrero 03/03/25. Patient's arterial supplied appeared to be optimized with inline flow to the ankle via the AT however there is extensive small vessel disease within the right foot and she remains at [facility] for below the knee amputation, plan to monitor clinically. Patient developed bleeding and small hematoma at the left groin site just prior to discharge from recovery yesterday following angiogram procedure. Pressure was held to the site for 20 minutes. SAMANTHA consult was requested and the patient was admitted to the hospital for observation. She had no acuteevents overnight. This AM, she is stable. Left groin access site is C/D/I without hematoma. H&His stable, 11.5 and 35.7. Creatinine is increased to 1.38 from 0.96 yesterday. She received 500 cc IV fluids, repeat creatinine unfortunately increased to 1.46. Discussed with nephrology, Dr. Richard, who recommended an additional 1 L IV fluids and repeat creatinine. Repeat creatinine improved to 1.39. Although creatinine has not returned to baseline, patient cleared for discharge from nephrology standpoint with close follow up with their service/repeat renal function. Procedures Performed: Procedure(s): Angiography lower ext right Issues Requiring Follow-Up Care: Follow up with nephrology for repeat/close monitoring of your kidney function. Outpatient Follow-Up Care: No future appointments. Discharge Medication List: Your medication list CONTINUE taking these medications Instructions Last Dose Given Next Dose Due ascorbic acid 500 mg tablet Commonly known as: VITAMIN C Take 1 tablet (500 mg total) by mouth 1 (one) time each day in the morning. aspirin 81 mg EC tablet Take 1 tablet (81 mg total) by mouth 1 (one) time each day. diclofenac 1 % topical gel Commonly known as: VOLTAREN APPLY 2 GRAM TOPICALLY TO AFFECTED AREA(S) (tacn) 4 TIMES A DAY IN THE MORNING, AT NOON, IN THE EVENING, AND AT BEDTIME FOR UP TO 10 DAYS docusate sodium 100 mg capsule Commonly known as: COLACE Take 1 capsule (100 mg total) by mouth 2 (two) times a day if needed. ferrous sulfate 325 mg (65 mg iron) EC tablet TAKE 1 TABLET BY MOUTH TWICE DAILY IN THE MORNING AND IN THE EVENING fluticasone propionate 50 mcg/actuation nasal spray Commonly known as: FLONASE Administer 1 spray into affected nostril(s). gabapentin 100 mg capsule Commonly known as: NEURONTIN Take 1 capsule (100 mg total) by mouth. at bedtime insulin lispro 100 unit/mL injection Inject 6 Units under the skin. Lantus Solostar U-100 Insulin 100 unit/mL (3 mL) injection pen Generic drug: insulin glargine INJECT 12 UNITS SUBCUTANEOUSLY EVERY EVENING lisinopriL 2.5 mg tablet Commonly known as: PRINIVIL,ZESTRIL [place] 1 tableta (2.5 mg en total) por v??a oral 1 (addie) vez al d??a. (Take 1 tablet (2.5 mg total) by mouth 1 (one) time each day.) melatonin 5 mg tablet Take 1 tablet (5 mg total) by mouth. OneTouch Ultra Test test strip Generic drug: glucose blood 4 (four) times a day. Prolia 60 mg/mL syringe syringe Generic drug: denosumab inject 1 milliliter by subcutaneous route every 6 months in the upper arm, upper thigh or abdomen tacrolimus 1 mg capsule Commonly known as: PROGRAF TAKE 3 CAPSULES BY MOUTH EVERY DAY IN THE MORNING and TAKE 2 CAPSULES BY MOUTH EVERY DAY IN THE EVENING Vitamin D3 25 mcg (1,000 unit) capsule Generic drug: cholecalciferol Take 2 capsules (2,000 Units total) by mouth 1 (one) time each day in the morning. Patient Condition and Disposition at Time of Discharge: Physical Exam General: Alert and oriented x 3, no acute distress, well-nourished HEENT: Normocephalic atraumatic Chest: Respiratory effort normal Cardiac: Regular rate rhythm Abdomen: Soft, non-tender Extremities: -Right upper extremity: 2+ radial artery pulses palpable. -Left upper extremity: 2+ radial artery pulses palpable. -Right lower extremity: 2+ femoral artery pulse palpable. No palpable popliteal artery pulse. DP and PT signals present. Gangrene affecting heel, hallux and 4th toe, dry. -Left lower extremity: Left groin dressing C/D/I, no hematoma. No palpable popliteal artery pulse. DP and PT signals present. No ulcers or gangrene. Neuro: Grossly intact Discharge Instructions: Please schedule or confirm a 2-4 week follow-up appointment with Dr. Botello's office at: [facility] [address] [place] [address], [place] [address] Please call the office at [phone] to confirm or schedule appointment You can take Tylenol up to 975 mg every 6 hours for pain. Do not exceed 4000 mg of Tylenol per day. Please take plavix (clopidogrel) in addition to aspirin for the next 30 days. After 30 days, stop plavix and continue aspirin. Please continue taking all other home medications as previously prescribed. Please call your stumper feller to schedule close follow up appointment and to monitor your kidney function. You can remove your dressing and shower in 24 hours. If you notice any increasing pain or swelling at the groin access site, please call the office. Some bruising is expected. Cosigned by Nando Botello MD at 03/04/2025 6:32 PM EST documented in this encounter Discharge Instructions * Discharge Instructions* MINNA Oden - 03/03/2025 2:57 PM EST Please schedule or confirm a 2-4 week follow-up appointment with Dr. Botello's office at: [facility] [address] [place] [address], [address] [place] [phone] Please call the office at [phone] to confirm or schedule appointment You can take Tylenol up to 975 mg every 6 hours for pain. Do not exceed 4000 mg of Tylenol per day. Please take plavix (clopidogrel) in addition to aspirin for the next 30 days. After 30 days, stop plavix and continue aspirin. Please continue taking all other home medications as previously prescribed. Please call your stumper feller to schedule close follow up appointment and to monitor your kidney function. You can remove your dressing and shower in 24 hours. If you notice any increasing pain or swelling at the groin access site, please call the office. Some bruising is expected. documented in this encounter Medications at Time of Discharge amLODIPine (NORVASC) 2.5 mg tablet Take 1 tablet (2.5 mg total) by mouth at bedtime. at bedtime. ascorbic acid (VITAMIN C) 500 mg tablet Take 1 tablet (500 mg total) by mouth 1 (one) time each day in the morning. 02/14/2024 aspirin 81 mg EC tablet Take 1 tablet (81 mg total) by mouth 1 (one) time each day. 02/23/2025 atorvastatin (LIPITOR) 80 mg tablet Take 1 tablet (80 mg total) by mouth at bedtime. denosumab (Prolia) 60 mg/mL syringe syringe inject 1 milliliter by subcutaneous route every 6 months in the upper arm, upper thigh or abdomen diclofenac (VOLTAREN) 1 % topical gel APPLY 2 GRAM TOPICALLY TO AFFECTED AREA(S) (tacn) 4 TIMES A DAY IN THE MORNING, AT NOON, IN THE EVENING, AND AT BEDTIME FOR UP TO 10 DAYS 01/10/2024 docusate sodium (COLACE) 100 mg capsule Take 1 capsule (100 mg total) by mouth 2 (two) times a day if needed for constipation. ferrous sulfate 325 mg (65 mg iron) EC tablet TAKE 1 TABLET BY MOUTH TWICE DAILY IN THE MORNING AND IN THE EVENING fluticasone propionate (FLONASE) 50 mcg/actuation nasal spray Administer 1 spray into affected nostril(s). gabapentin (NEURONTIN) 100 mg capsule Take 1 capsule (100 mg total) by mouth. at bedtime insulin lispro 100 unit/mL injection Inject 6 Units under the skin. Lantus Solostar U-100 Insulin 100 unit/mL (3 mL) injection pen 12 units in the morning or 6 units BID due to low blood sugars at night 03/21/2024 lisinopriL (PRINIVIL,ZESTRI L) 2.5 mg tablet Take 2 tablets (5 mg total) by mouth 1 (one) time each day. melatonin 5 mg tablet Take 1 tablet (5 mg total) by mouth at bedtime. 04/23/2024 mycophenolate (MYFORTIC) 180 mg EC tablet Take 1 tablet (180 mg total) by mouth 2 (two) times a day. OneTouch Ultra Test test strip 4 (four) times a day. 04/25/2024 pantoprazole (PROTONIX) 40 mg EC tablet Take 1 tablet (40 mg total) by mouth 2 (two) times daily before breakfast and lunch. Do not crush, chew, or split. polyethylene glycol (MIRALAX) 17 gram packet Take 17 g by mouth 1 (one) time each day if needed for constipation. predniSONE (DELTASONE) 5 mg tablet Take 1 tablet (5 mg total) by mouth 1 (one) time each day. tacrolimus (PROGRAF) 1 mg capsule TAKE 3 CAPSULES BY MOUTH EVERY DAY IN THE MORNING and TAKE 2 CAPSULES BY MOUTH EVERY DAY IN THE EVENING traMADoL (ULTRAM) 50 mg tablet Take 1 tablet (50 mg total) by mouth every 6 (six) hours if needed for severe pain. Max Daily Amount: 200 mg traZODone (DESYREL) 100 mg tablet Take 1-2 tablets (100-200 mg total) by mouth at bedtime. Vitamin D3 25 mcg (1,000 unit) capsule Take 2 capsules (2,000 Units total) by mouth 1 (one) time each day in the morning. 04/25/2024 documented as of this encounter Discharge Disposition Disposition Code Departure Means Destination Comment s Home or Self Care documented in this encounter Progress Notes * Makenna López RN - 03/04/2025 6:49 PM EST Patient medically stable to discharge home with family tonight. Discharge instructions gone over with candle cutter Nurse and patient and Daughter state understanding of instructions. * Newton Baptiste - 03/04/2025 12:25 PM EST SPIRITUAL CARE Date/Time:03/04/2025 at 12:25 PM EST Type of Visit: Initial Visit and Distribution Transformer Assembler Rounding Reason for Visit: Spiritual/Emotional Support Time Spent: 10 Minutes Location: Sacramental Encounters: Communion Given Indicator: Yes Sacrament of Sick-Anointing: Anointed Spiritual Distress Assessment: Spiritual Assessment/Distress Spiritual Care Assessment: Assessment: Sofiya, was awake, alert, lying down in the bed resting at the time of visit. Voiced desire to get better. Kavitha confucianist is listed as none but is Muslim, expressed desire to receive sacraments of anointing of the sick and Holy communion. Prayed for recovery and good health. Thankful for the visit. Intervention: NE Spiritual Care Interventions : provided support, explored hope, listened empathically, and provided prayer Outcomes: expressed gratitude Plan of Care: Visit as needed *Reference: Spiritual Distress Assessment Tool: The SDAT is a clinical tool used by chaplains to identify unmet spiritual and emotional needs that can impact Goals of Care in the following categories: Spiritual Distress Assessment Legend Spiritual Needs Related Questions Meaning Are you having difficulties coping with what is happening to your now? Does your hospitalization have any repercussions on the way you live usually? Transcendence Do you have a particular confucianist, kavitha, or spirituality? Is your confucianist/spirituality/kavitha challenged by what is happening to you now? Values Do you think that the health professionals caring for you know you well enough? Do you feel that you are participating in the decisions made about your care? Psycho-Social Identity Do you have any worries or difficulties regarding your family or other persons close to you? Do you feel lonely? Do you have links to your kavitha community? SCALE 0= no evidence of unmet spiritual needs 1= some evidence of unmet spiritual needs 2= substantial evidence of unmet spiritual needs 3= evidence of severe unmet spiritual needs * Michelle Miles RN - 03/04/2025 12:16 PM EST Images from the original note were not included. Wound Care Initial Consult Visit Date: 03/04/2025 Patient Name: Sofiya Gallegos Date of : 1950 Reason for Consult: Wound RN Consult received to assess rt foot wounds and recommend topical treatment. Patient is admitted with right limb critical ischemia and s/p aortogram with angioplasty on 03/03/[address] Botello. Patient Active Problem List Diagnosis Date Noted Critical limb ischemia of right lower extremity ([facility] V24, [facility] V28) 02/23/2025 COVID-19 12/04/2023 Postprandial abdominal pain in left upper quadrant 11/06/2022 Diarrhea 10/23/2022 Epigastric pain 05/18/2022 Anemia 03/24/2022 Deep vein thrombosis (DVT) of brachial vein of right upper extremity ([facility] V24, [facility] V28) 03/24/2022 Acute thoracic back pain 03/17/2022 Chronic kidney disease (CKD) stage G3a/A2, moderately decreased glomerular filtration rate (GFR) between 45-59 mL/min/1.73 square meter and albuminuria creatinine ratio bet* ([facility] V24, [facility] V28) 03/17/2022 Chronic kidney disease (CKD) stage G3a/A2, moderately decreased glomerular filtration rate (GFR) between 45-59 mL/min/1.73 square meter and albuminuria creatinine ratio bet* ([facility] V24, [facility] V28) 03/17/2022 Stage 3 chronic kidney disease ([facility] V24, [facility] V28) 03/17/2022 Foot pain 03/17/2022 Gastrointestinal hemorrhage 03/17/2022 Diabetes mellitus ([facility] V24, [facility] V28) 03/13/2022 Type 2 diabetes mellitus without complication 03/13/2022 Hypertensive disorder 03/13/2022 High cholesterol 03/13/2022 Diabetic nephropathy associated with type 2 diabetes mellitus ([facility] V24, [facility] V28) 05/11/2020 Essential hypertension 05/11/2020 History of kidney transplant 05/11/2020 Cough 04/29/2018 Backache 07/31/2017 Herpes labialis 03/09/2017 Herpesvirus infection 02/08/2017 Wound History: Nutritional Status: Pertinent Labs: WBC Date Value Ref Range Status 03/04/2025 12.1 (H) 4.8 - 10.8 K/mcL Final Glucose POCT Date Value Ref Range Status 03/04/2025 249 (H) 70 - 100 mg/dL Final Wound Assessment: Wound Arterial Ulcer 03/03/25 Heel Right (Active) Wound Image 03/04/25953 Wound Bed Tissue Assessment Black;Dry;Eschar 03/04/25953 Marya-Wound Assessment Dry;Painful 03/04/25799 Wound Length (cm) 4 cm 03/04/25953 Wound Width (cm) 4 cm 03/04/25953 Wound Surface Area (cm^2) 12.57 cm^2 03/04/25953 Wound Depth (cm) 0.1 cm 03/04/25953 Wound Volume (cm^3) 0.838 cm^3 03/04/25953 Dressing Betadine 03/04/25953 Dressing Status Other (Comment) 03/04/25106 State of Healing Eschar;Non-healing 03/04/25953 Wound Arterial Ulcer 03/03/25 Toe D1, Great Anterior;Right (Active) Wound Image 03/04/25950 Wound Bed Tissue Assessment Black;Eschar;Dry 03/04/25950 Marya-Wound Assessment Dry 03/04/25799 Wound Length (cm) 1.5 cm 03/04/25950 Wound Width (cm) 2 cm 03/04/25950 Wound Surface Area (cm^2) 2.36 cm^2 03/04/25950 Wound Depth (cm) 0.1 cm 03/04/25950 Wound Volume (cm^3) 0.157 cm^3 03/04/25950 Dressing Betadine 03/04/25950 Dressing Changed New 03/04/25950 Dressing Status Other (Comment) 03/04/25107 State of Healing Non-healing;Eschar 03/04/25950 Wound Incision 03/03/25 Thigh Anterior;Left;Proximal (Active) Wound Bed Tissue Assessment Unable to assess 03/04/25 08 Marya-Wound Assessment Unable to assess 03/04/25 0110 Dressing Status Clean;Dry;Intact 03/04/25799 Wound Arterial Ulcer 03/04/25 Toe D4, Fourth Anterior;Right (Active) Wound Image 03/04/25952 Wound Bed Tissue Assessment Black;Dry;Eschar 03/04/25952 Marya-Wound Assessment Dry 03/04/25799 Wound Length (cm) 1 cm 03/04/25952 Wound Width (cm) 1.5 cm 03/04/25952 Wound Surface Area (cm^2) 1.18 cm^2 03/04/25952 Wound Depth (cm) 0.1 cm 03/04/25952 Wound Volume (cm^3) 0.079 cm^3 03/04/25952 Dressing Betadine 03/04/25952 State of Healing Eschar;Non-healing 03/04/25952 Support Surface: Dylan is 18 and not at risk. Wound Summary Assessment: Rt heel, RT great toe tip and 4th toe tip with dry, black stable eschar. Foot warm to touch. Wound Plan: Recommending to paint with betadine. Recommending to offolad heel with waffle boot while in bed. 03/04/2025 12:16 PM EST * Roosevelt Rivera RN - 03/04/2025 11:14 AM EST Patient and daughter at bedside asking for recommendations regarding upcoming travel to [place] [id number]/12-03/22. Discussed with Vascular team: Patient and daughter notified that per Regina BUITRAGO Despite the revasculatization we performed she remains high risk for amputation of the foot still with the active gangrene . * Franci John RN - 03/04/2025 10:02 AM EST 03/04/25 1002 Initial Transition Plan Initial Transition Plan Home Discharge Planning Living Arrangements Children Type of Residence Private residence Assistive Devices Walker;Wheelchair;Shower chair Support Systems Children Medication Coverage Has Med Coverage Under Insurance Plan Yes Medication Affordability No concerns related to payment for meds Anticipated Discharge Needs Discipline following for SNF placement Tube Backer Informed Choice Informed Choice Given? Yes Transportation Transportation at discharge Family Final Discharge Disposition Home or Self Care ICC met with pt at bedside. Demographics confirmed. Not a . Has DME listed, no home O2 needs. No VNA or APPEALS SPECIALIST. No skilled need on DC. Can DC home self-care. Dtr Geni can transport per pt. ICCsigning off. * Ko Banerjee MD - 03/04/2025 8:19 AM EST Images from the original note were not included. SAMANTHA PROGRESS NOTE Date: 03/04/2025 Author: Ko Banerjee MD Patient ID: Sofiya Gallegos is a 74 y.o. female : 1950 MR#: [id number] SUBJECTIVE No bleeding or oozing from the groin. She remained hemodynamically stable. Current Medications: MEDSSCHEDULED[1] MEDSCONTINUOUS[2] MEDSPRN[3] OBJECTIVE Last Recorded Vitals: Vitals: 03/03/25 2241 03/04/25 0425 03/04/25 0540 03/04/25 0807 BP: (!) 163/62 (!) 118/46 129/56 (!) 164/74 BP Location: Right arm Right arm Right arm Right arm Patient Position: Lying Lying Lying Pulse: 85 70 76 Resp: 16 16 18 Temp: 36.1 ??C (96.9 ??F) 37.2 ??C (98.9 ??F) 36.6 ??C (97.9 ??F) TempSrc: Temporal Temporal Temporal SpO2: 98% 98% 100% Weight: Height: Physical Exam Constitutional: Appearance: Normal appearance. HENT: Head: Normocephalic and atraumatic. Mouth/Throat: Mouth: Mucous membranes are moist. Eyes: Extraocular Movements: Extraocular movements intact. Pupils: Pupils are equal, round, and reactive to light. Cardiovascular: Rate and Rhythm: Normal rate and regular rhythm. Pulses: Normal pulses. Pulmonary: Effort: Pulmonary effort is normal. Breath sounds: Normal breath sounds. Abdominal: General: Abdomen is flat. Bowel sounds are normal. Musculoskeletal: General: Normal range of motion. Cervical back: Normal range of motion and neck supple. Comments: Right foot, right toe has ischemic changes and dry gangrene. Left groin has no active bleeding. Skin: Findings: No erythema or rash. Comments: Right leg big toe has dry gangrene Neurological: General: No focal deficit present. Mental Status: She is alert and oriented to person, place, and time. Psychiatric: Mood and Affect: Mood normal. Lab Results: Admission on 03/03/2025 Component Date Value Sodium 03/03/2025 134 Potassium 03/03/2025 4.5 Chloride 03/03/2025 99 CO2 03/03/2025 26 Anion Gap 03/03/2025 9 Glucose 03/03/2025 224 (H) BUN 03/03/2025 23 Creatinine 03/03/2025 0.96 eGFR 03/03/2025 62 BUN/Creatinine Ratio 03/03/2025 24.0 Calcium 03/03/2025 9.8 Protime 03/03/2025 12.8 INR 03/03/2025 1.0 aPTT 03/03/2025 30.1 WBC 03/03/2025 14.6 (H) RBC 03/03/2025 4.40 Hemoglobin 03/03/2025 13.5 Hematocrit 03/03/2025 40.6 MCV 03/03/2025 92.7 MCH 03/03/2025 30.8 MCHC 03/03/2025 33.3 RDW 03/03/2025 15.7 (H) Platelets 03/03/2025 382 MPV 03/03/2025 12.1 (H) NRBC 03/03/2025 0.0 NRBC Absolute 03/03/2025 0.00 Neutrophils Relative 03/03/2025 84.9 Lymphocytes Relative 03/03/2025 8.6 Monocytes Relative 03/03/2025 5.5 Eosinophils Relative 03/03/2025 0.2 Basophils Relative 03/03/2025 0.3 Immature Granulocytes Re* 03/03/2025 0.5 Neutrophils Absolute 03/03/2025 12.40 (H) Lymphocytes Absolute 03/03/2025 1.26 Monocytes Absolute 03/03/2025 0.80 Eosinophils Absolute 03/03/2025 0.03 Basophils Absolute 03/03/2025 0.04 Immature Granulocytes Ab* 03/03/2025 0.07 (H) Activated Clotting Time * 03/03/2025 214 (H) Activated Clotting Time * 03/03/2025 194 (H) Activated Clotting Time * 03/03/2025 189 (H) Glucose POCT 03/03/2025 84 Sodium 03/04/2025 140 Potassium 03/04/2025 4.8 Chloride 03/04/2025 104 CO2 03/04/2025 26 Anion Gap 03/04/2025 10 Glucose 03/04/2025 140 (H) BUN 03/04/2025 31 (H) Creatinine 03/04/2025 1.38 (H) eGFR 03/04/2025 40 (L) BUN/Creatinine Ratio 03/04/2025 22.5 Calcium 03/04/2025 9.5 WBC 03/04/2025 12.1 (H) RBC 03/04/2025 3.80 Hemoglobin 03/04/2025 11.5 Hematocrit 03/04/2025 35.7 MCV 03/04/2025 93.7 MCH 03/04/2025 30.2 MCHC 03/04/2025 32.2 RDW 03/04/2025 15.9 (H) Platelets 03/04/2025 331 MPV 03/04/2025 11.7 (H) NRBC 03/04/2025 0.0 NRBC Absolute 03/04/2025 0.00 Neutrophils Relative 03/04/2025 68.4 Lymphocytes Relative 03/04/2025 18.9 Monocytes Relative 03/04/2025 11.5 Eosinophils Relative 03/04/2025 0.7 Basophils Relative 03/04/2025 0.2 Immature Granulocytes Re* 03/04/2025 0.3 Neutrophils Absolute 03/04/2025 8.30 (H) Lymphocytes Absolute 03/04/2025 2.29 Monocytes Absolute 03/04/2025 1.39 (H) Eosinophils Absolute 03/04/2025 0.08 Basophils Absolute 03/04/2025 0.03 Immature Granulocytes Ab* 03/04/2025 0.04 (H) Glucose POCT 03/04/2025 172 (H) Imaging: Invasive vascular procedure Per op note ASSESSMENT & PLAN Principal Problem: Critical limb ischemia of right lower extremity ([facility] V24, [facility] V28) 74 year old Ivorian speaking female with past medical history significant for CKD s/p renal transplant, diabetes mellitus requiring insulin, diabetic neuropathy, hypertension, hyperlipidemia, GERD, insomnia, who was admitted to the vascular surgery for an angiogram . Patient was recently found to have right foot gangrene, and subsequently underwent left common femoral artery ultrasound-guided access, catheter placement aorta, aortogram with bilateral iliofemoral runoff, third order selective catheterization of right superficial femoral artery, right lower extremity angiogram and orbital arthrectomy and drug-coated balloon angioplasty of suprageniculate popliteal artery with Dr. Botello 03/03/2025. Surgery was uncomplicated. In the PACU there was concern of bleeding from the catheterization site, vascular surgery admitted patient overnight and consulted Samantha for management. Critical limb ischemia of right lower extremity Right foot dry gangrene Postop hematoma, no further bleeding and no pain H&H remained stable - Continue care per vascular surgery recommendations Diabetes mellitus - No change in insulin ESRD Status post kidney transplant - Follow-up with Dr. Galarza of nephrology - Continue chronic prednisone, tacrolimus and mycophenolate as prescribed Primary hypertension - Continue chronic amlodipine and lisinopril as prescribed with holding parameters Mixed hyperlipidemia - Continue chronic statin VTE Prophylaxis: Venous boots Full Code - Default Disposition/patient need hospital stay because : Medically stable discharge will be done by vascular surgery if they consider her stable surgically. Health care proxy with phone number : [1] acetaminophen, 1,000 mg, oral, q6h [place] amLODIPine, 2.5 mg, oral, Nightly ascorbic acid, 500 mg, oral, q AM aspirin, 81 mg, oral, Daily atorvastatin, 80 mg, oral, Nightly fentaNYL, 25 mcg, intravenous, Once ferrous sulfate, 325 mg, oral, BID gabapentin, 100 mg, oral, Nightly insulin lispro, 1-6 Units, subcutaneous, Before meals & nightly lisinopriL, 5 mg, oral, Daily melatonin, 4.5 mg, oral, Nightly mycophenolate, 180 mg, oral, BID pantoprazole, 40 mg, oral, BID AC Breakfast & Lunch predniSONE, 5 mg, oral, Daily sodium chloride, 10 mL, intravenous, BID tacrolimus, 3 mg, oral, Daily And tacrolimus, 2 mg, oral, Nightly [2] sodium chloride, 75 mL/hr sodium chloride, 75 mL/hr [3] PRN medications: dextrose 50%, dextrose 50%, dextrose, dextrose, glucagon injection, ondansetron (ZOFRAN-ODT) disintegrating tablet OR ondansetron, oxyCODONE, oxyCODONE, oxyCODONE, Insert peripheral IV AND Maintain IV access AND Saline lock IV AND sodium chloride AND sodium chloride, traZODone documented in this encounter H&P Notes * Nando Botello MD - 03/03/2025 12:12 PM EST History and physical within 30 days with no changes. PATIENT: Sofiya Gallegos ENCOUNTER: 03/03/2025 EMRN: [id number] : 1950 Patient was examined. History and applicable lab work which was completed prior to admission but ismore than 24 hours old has been reviewed. No changes identified. Source Note - MINNA Strickland - 02/23/2025 1:00 PM EST PATIENT: Sofiya Glalegos ENCOUNTER: 02/23/2025 EMRN: [id number] : 1950 PCP: Ana María Bryan MD CHIEF COMPLAINT: Peripheral Vascular Disease HPI: This 74 y.o. female with renal transplant presents for evaluation of right foot gangrene. She presents with her granddaughter who is translating per patient request. She developed gangrene of multiple areas of the foot a few months ago. She initially went to the ED, then received a podiatry referral and appointment, and then was urgently referred to vascular by podiatry. Pt has had no prior vascular procedures. She is ambulatory but does have a wheelchair present at today's visit. She denies claudication. Denies rest pain in the left foot. She has no ulcers of the left foot. She has had a left ankle fracture s/p ORIF in 2017. She is a diabetic but has never smoked. History pertinent for kidney transplant in 2011, followed by Dr. Galarza. She denies being on any anticoagulation or antiplatelet however in other notes it does say she is on Eliquis. Her granddaughter has confirmed the patient is not on eliquis. PAST MEDICAL HISTORY: Problem List[1] PAST SURGICAL HISTORY: Surgical History[2] MEDICATIONS: Medications Taking[3] ALLERGIES: Current Allergies[4] SOCIAL HISTORY: Social History[5] FAMILY HISTORY: Family History[6] ROS: GENERAL: No malaise, significant weight loss or fever NECK: No lumps, goiter, pain or significant neck swelling RESPIRATORY: No cough, wheezing or shortness of breath CARDIAC: No chest pain or palpitations GI: No abdominal discomfort MUSCULOSKELETAL: SEE HPI SKIN: No lesions, rash or itching NEURO: No persistent headache, syncope, seizures, weakness or numbness VASCULAR: SEE HPI PHYSICAL EXAM: Vitals: 02/23/25 1309 BP: 128/72 BP Location: Right arm Patient Position: Sitting Weight: 49.6 kg (109 lb 6.4 oz) Height: 1.448 m (57 ) General: Alert and oriented x 3, no acute distress, well-nourished HEENT: Normocephalic atraumatic Chest: Respiratory effort normal Cardiac: Regular rate rhythm Abdomen: Soft, nontender, nondistended, aortic pulse is palpable, does not feel widened. Pulse present in RLQ ?renal transplant Extremities: -Right upper extremity: 2+ radial artery pulses palpable. -Left upper extremity: 2+ radial artery pulses palpable. -Right lower extremity: 2+ femoral artery pulse palpable. No palpable popliteal artery pulse. DP and PT signals present. Gangrene affecting heel, hallux and 4th toe, dry. -Left lower extremity: 2+ femoral artery pulse palpable. No palpable popliteal artery pulse. DP andPT signals present. No ulcers or gangrene. Neuro: Grossly intact DIAGNOSTIC TESTING: N/A ASSESSMENT: 1. Critical limb ischemia of right lower extremity ([facility] V24, [facility] V28) PLAN: 74 y.o. female with critical limb ischemia of the right foot with dry gangrene of the heel, hallux,and 4th toe. Pt has no prior vascular history but does have history of renal transplant in 2011. Wediscussed right lower extremity angiogram with possible intervention, possible CO2 angiography to be scheduled pierre. Patient agreeable and informed consent obtained. She is agreeable to starting aspirin daily. We discussed the natural pathophysiology of PAD. I spent 45 minutes in an encounter with this patient, including time spent with patient, chart review, and documentation. [1] Patient Active Problem List Diagnosis Acute thoracic back pain Anemia Backache Chronic kidney disease (CKD) stage G3a/A2, moderately decreased glomerular filtration rate (GFR) between 45-59 mL/min/1.73 square meter and albuminuria creatinine ratio bet* ([facility]/HCC V24, [facility] V28) Chronic kidney disease (CKD) stage G3a/A2, moderately decreased glomerular filtration rate (GFR) between 45-59 mL/min/1.73 square meter and albuminuria creatinine ratio bet* (CMS/HCC V24, [facility] V28) Stage 3 chronic kidney disease (CMS/HCC V24, CMS/HCC V28) Cough COVID-19 Deep vein thrombosis (DVT) of brachial vein of right upper extremity (CMS/HCC V24, CMS/HCC V28) Diabetes mellitus (CMS/HCC V24, [facility] V28) Type 2 diabetes mellitus without complication Diabetic nephropathy associated with type 2 diabetes mellitus (CMS/HCC V24, CMS/HCC V28) Diarrhea Epigastric pain Postprandial abdominal pain in left upper quadrant Essential hypertension Hypertensive disorder Foot pain Gastrointestinal hemorrhage Herpes labialis Herpesvirus infection High cholesterol History of kidney transplant Critical limb ischemia of right lower extremity (CMS/HCC V24, CMS/HCC V28) [2] No past surgical history on file. [3] Outpatient Medications Marked as Taking for the 02/23/25 encounter (Consult) with MINNA Strickland Medication Sig Dispense Refill ascorbic acid (VITAMIN C) 500 mg tablet Take 1 tablet (500 mg total) by mouth 1 (one) time each dayin the morning. cephalexin (KEFLEX) 500 mg capsule Take 1 capsule (500 mg total) by mouth 2 (two) times a day. for 7 days denosumab (Prolia) 60 mg/mL syringe syringe inject 1 milliliter by subcutaneous route every 6 months in the upper arm, upper thigh or abdomen diclofenac (VOLTAREN) 1 % topical gel APPLY 2 GRAM TOPICALLY TO AFFECTED AREA(S) (tacn) 4 TIMES A DAY IN THE MORNING, AT NOON, IN THE EVENING, AND AT BEDTIME FOR UP TO 10 DAYS docusate sodium (COLACE) 100 mg capsule Take 1 capsule (100 mg total) by mouth 2 (two) times a day if needed. doxycycline hyclate (VIBRA-TABS) 100 mg tablet TAKE 1 TABLET BY MOUTH TWICE DAILY FOR 7 DAYS WITH AFULL GLASS OF WATER. Do not lie down for 30 minutes after taking. ferrous sulfate 325 mg (65 mg iron) EC tablet TAKE 1 TABLET BY MOUTH TWICE DAILY IN THE MORNING ANDIN THE EVENING fluticasone propionate (FLONASE) 50 mcg/actuation nasal spray Administer 1 spray into affected nostril(s). gabapentin (NEURONTIN) 100 mg capsule Take 1 capsule (100 mg total) by mouth. at bedtime insulin lispro 100 unit/mL injection Inject 6 Units under the skin. Jardiance 25 mg tablet Take 1 tablet (25 mg total) by mouth 1 (one) time each day in the morning. Lantus Solostar U-100 Insulin 100 unit/mL (3 mL) injection pen INJECT 12 UNITS SUBCUTANEOUSLY EVERYEVENING lisinopriL (PRINIVIL,ZESTRIL) 2.5 mg tablet Take 1 tablet (2.5 mg total) by mouth 1 (one) time eachday. melatonin 5 mg tablet Take 1 tablet (5 mg total) by mouth. OneTouch Ultra Test test strip 4 (four) times a day. traMADoL (ULTRAM) 50 mg tablet Take 1 tablet (50 mg total) by mouth every 6 (six) hours if needed (Moderate to severe pain) for up to 7 days. Max Daily Amount: 200 mg 28 tablet 0 Vitamin D3 25 mcg (1,000 unit) capsule Take 2 capsules (2,000 Units total) by mouth 1 (one) time each day in the morning. [4] Allergies Allergen Reactions Diphenhydramine Other and Unknown Other reaction(s): Other (see comments) Other reaction(s): Other (see comments) feeling of panic feeling of panic [5] [6] No family history on file. documented in this encounter Procedure Notes * Bonita Jung RN - 03/03/2025 10:51 PM EST [place] [facility]. Report given to Rohini BUITRAGO, and Luci PLUMMER at bedside. * Bonita Jung RN - 03/03/2025 9:25 PM EST Pt assisted up to chair at 2039. Dressing was immediately clean/dry/intact. Upon recheck dressing was saturated with blood. Pt laid down and manual pressure was held for 20 minutes. VSS. Small hematoma noted. Provider made aware and ordered pt to be admitted for observation. * Bonita Jung RN - 03/03/2025 7:51 PM EST Pt sitting up in bed, VSS, no complaints or distress. Pt drinking water. Left groin site clean/dry and intact. * Nando Botello MD - 03/03/2025 1:22 PM EST Angiography lower ext right (R) OPERATIVE NOTE Date: 03/03/2025 Location: [facility] Cardiac [facility] [facility] Name: Sofiya Gallegos, : 1950, Diagnosis Pre-op Diagnosis * Critical limb ischemia of right lower extremity (CMS/HCC V24, CMS/HCC V28) [I70.221] Post-op Diagnosis * Critical limb ischemia of right lower extremity (CMS/HCC V24, CMS/HCC V28) [I70.221] Procedures 1. Left common femoral artery ultrasound-guided access 2. Catheter placement aorta 3. Aortogram with bilateral iliofemoral runoff 4. Third order selective catheterization of right superficial femoral artery 5. Right lower extremity angiogram 6. Orbital atherectomy and drug-coated balloon angioplasty of suprageniculate popliteal artery (1.25 mm Diamondback orbital atherectomy device, 4 mm x 40 mm IN-PACT 018 DCB) Indications: Sofiya Gallegos is an 74 y.o. female who is having surgery for Critical limb ischemiaof right lower extremity (CMS/HCC V24, CMS/HCC V28) [I70.221]. Surgeon(s) & Loan Processor(s) * Nando Botello MD - Primary Anesthesia: Moderate conscious sedation and local was performed for anesthesia under my direction. Ongoing assessment and monitoring of vital signs was performed from 1355 to 1448 by a dedicated registered nurse observer during MCS. Patient received 2 mg of IV midazolam and 125 mcg of IV fentanyl administrated by dedicated registered nurse observer. ASA: 3 Estimated Blood Loss: 20 mL Procedure Details: Patient brought into the [facility] placed on table in supine position. Bilateral groins were draped and prepped in usual sterile fashion. MAC anesthesia was given. A timeout was performed. The area overlying the left common femoral artery was then anesthetized with 1% lidocaine. Using ultrasound guidance and a micropuncture needle the left common femoral artery was cannulated. A microwire was then passed into the iliac artery under fluoroscopic guidance. The needle was exchanged for a slender 5 [place] sheath. The inner dilator was removed and the side-port was flushed with heparinized saline. J-wire was passed into the aorta under fluoroscopic guidance. A Omni Flush catheter was placed into the aorta and allowed to reform at the level of L3. An aortogram with bilateral iliofemoral runoff was performed. The arterial anatomy was delineated. The aorta bilateral common and external iliac arteries were patent with mild disease. The right superficial femoral artery was then selected out using multiple catheters and wires. A right lower extremity angiogram was then performed using serial stations with hand-injection and digital subtraction angiography. The arterial anatomy was delineated. The common femoral artery was patent with mild disease. The superficial femoral artery had mild disease along its entire course. The suprageniculate popliteal artery had a short segment calcified occlusion versus near occlusion. The infrageniculate popliteal artery was patent. There was three-vessel runoff at the calf with severely diseased posterior tibial and peroneal artery with occlusion of both vessels in the mid segments. Theanterior tibial artery was diseased but had runoff into the foot and was occluded at the dorsalis pedis. There was significantly delayed distal reconstitution of a severely diseased posterior tibial artery. There is extensive small vessel disease in the foot. There was no direct supply to the heel. The patient warranted intervention. The patient was systemically heparinized. A 5 [place] 70 cm Cookflexor sheath was brought up and over and parked in the contralateral distal superficial femoral artery. All the lesions were crossed using multiple catheters and wires. A 014, Viper wire was parked in the peroneal artery. A Diamondback 1.25 solid crown orbital atherectomy device was selected. The Diamondback orbital atherectomy device was prepared per standard protocol. Nitroglycerin was given intra-arterially. A orbital atherectomy was performed with multiple passes at 60 kRPM, 90 kRPM, and 120 kRPM per protocol on the lesion in the suprageniculate popliteal artery. The lesion was then angioplastied with a 4 mm x 40 mm IN-PACT 018 drug-coated balloon. Completion angiography revealed residual stenosis of less than 10%. This constituted a good technical result. Patient now had inline flow to the proximal foot via the anterior tibial artery. All catheters wires were removed. 70 cm 5 [place] sheath was exchanged for 10 cm 5 [place] sheath. Inner dilator of the sideport was flushed with saline. Sheath to be pulled per PACU protocol. Radiological supervision and interpretation: As stated above Complications: None; patient tolerated the procedure well. Disposition: PACU - hemodynamically stable. Condition: stable Plan: Patient's arterial supply appears to be optimized with inline flow to the ankle via the AT however there is extensive small vessel disease within the right foot. There is a late filling distal severely diseased posterior tibial which could potentially be a target however does not appear to have any significant outflow. Overall despite reestablishing flow to the foot patient remains at high risk for below the knee amputation due to small vessel disease. At this juncture in time we will monitor clinically. * Nando Botello MD - 03/03/2025 12:13 PM EST Mallampati classification: 3 ASA classification: 3 Diagnosis: PAD Patient had coffee with milk 4 hours ago. Given that she has critical limb ischemia we will proceed with right lower extremity angiogram with possible intervention. documented in this encounter Consult Notes * MINNA Hogan - 03/03/2025 10:21 PM ESTAssociated Order(s): IP CONSULT TO INTERNAL MEDICINE Images from the original note were not included. SAMANTHA CONSULTATION Please contact author [MINNA Hogan] via [employer]. Patient: Sofiya Gallegos Admission Date/Time: 03/03/2025 12:04 PM : 1950 [74 y.o.] Patient's PCP: Ana María Bryan MD Attending Provider: Vijay Brown MD CHIEF COMPLAINT SAMANTHA consultation HISTORY OF PRESENT ILLNESS This is a 74 year old Ivorian speaking female with past medical history significant for CKD s/p renal transplant, diabetes mellitus requiring insulin, diabetic neuropathy, hypertension, hyperlipidemia, GERD, insomnia, amongst others, who presented to [facility] for scheduled surgery. Patient was recently found to have right foot gangrene, and subsequently underwent left common femoral artery ultrasound-guided access, catheter placement aorta, aortogram with bilateral iliofemoral runoff, third order selective catheterization of right superficial femoral artery, right lower extremity a ngiogram and orbital arthrectomy and drug-coated balloon angioplasty of suprageniculate popliteal artery with Dr. Botello 03/03/2025. Surgery was uncomplicated. In the PACU patient was ready for discharge when she was noted to have bleeding and small hematoma to surgical site at left groin. Vascular s urgery was consulted and ultimately recommended patient be observed in the hospital with [place] consultation. Patient is Ivorian-speaking only requiring use of electronic director client services Akila #[id number], limiting H&P. Patient's daughter Magdalena is also at bedside, contributing to H&P. Patient complains ofright foot pain, specifically at her right heel/location of chronic wound. She denies additional complaints. Denies fever, chills, shortness of breath, chest pain, abdominal pain, nausea, vomiting, diarrhea or dysuria. Upon consultation patient is afebrile, heart rate 85, respiratory rate 16, blood pressure 163/62, oxygen saturation 98% on room air. Labs performed revealing WBC 14.6 with neutrophils 12.4, BUN 23 with creatinine 0.96. As stated above, patient developed hematoma and bleeding at surgical site at time of discharge and was recommended to be brought into the hospital under observation with [place] consultation. Review of Systems Review of Systems Musculoskeletal: Positive for gait problem and myalgias (foot pain). All other systems reviewed and are negative. MEDICAL HISTORY Past Medical History Medical History[1] Past Surgical History Surgical History[2] Social History reports that she has never smoked. She has never used smokeless tobacco. She reports that she does not currently use alcohol. She reports that she does not currently use drugs. Patient primarily lives alone. Patient's daughter reports recent loss in the family, of her father (unclear relation to patient). Patient's daughter had previously been caring for her father before he and is considering now caring for the patient. Patient uses or wheelchair for assistance with ambulation. She requires assistance with ADLs. Family History family history includes Breast cancer in her sister; Colon cancer in an other family member. Allergies is allergic to diphenhydramine. Home Medications Medications Ordered Prior to Encounter[3] OBJECTIVE Vitals Visit Vitals BP (!) 163/62 (BP Location: Right arm) Pulse 85 Temp 36.1 ??C (96.9 ??F) (Temporal) Resp 16 Temp (24hrs), Av.2 ??C (97.2 ??F), Min:36.1 ??C (96.9 ??F), Max:36.4 ??C (97.5 ??F) Body mass index is 23.8 kg/m??. No results found for: PTWT , PTHT Physical Examination General Exam: Age appropriate, awake, calm, cooperative, intermittently appearing uncomfortable although in no acute distress. Skin Exam: Warm, dry, intact, no diaphoresis. Capillary refill < 3 seconds. Large area of gangrene noted to the right heel, hallux and fourth toe, appearing dry. Areas are tender to palpation. Eye Exam: No scleral icterus HEENT exam: Head is normocephalic. Oral mucosa mildly dry. No trismus, drooling, or difficulty handling secretions. Neck Exam: Soft/supple, full range of motion, no nuchal rigidity Respiratory Exam: Clear to auscultation bilaterally, no wheezes, rales or rhonchi. No tripoding, retractions or increased work of breathing. Speaking in full sentences without difficulties. Cardiovascular Exam: Regular rate and rhythm, no rubs gallops. Gastrointestinal Exam: No pulsations or visible masses, nondistended. Normoactive bowel sounds. Abdomen is soft, nontender, without rebound/guarding. No peritoneal signs appreciated. Musculoskeletal Exam: No calf tenderness or asymmetry, no lower extremity pitting edema. Moving allextremities at the major joint spaces without difficulty. Neurological Exam: Alert and oriented X3. No focal deficit. Smile symmetric. No dysarthria/dysphagia. Hearing appropriate. Following commands without difficulties. LAB RESULTS (most recent) HEMATOLOGY Lab Results Component Value Date WBC 14.6 (H) 03/03/2025 HGB 13.5 03/03/2025 HCT 40.6 03/03/2025 MCV 92.7 03/03/2025 PLT 382 03/03/2025 CHEMISTRY Lab Results Component Value Date GLUCOSE 84 03/03/2025 NA 134 03/03/2025 K 4.5 03/03/2025 CO2 26 03/03/2025 CL 99 03/03/2025 BUN 23 03/03/2025 CREATININE 0.96 03/03/2025 EGFR 62 03/03/2025 CALCIUM 9.8 03/03/2025 ANIONGAP 9 03/03/2025 Radiology Invasive vascular procedure Final Result ASSESSMENT & PLAN Critical limb ischemia of right lower extremity Right foot dry gangrene Postop hematoma - Bring patient into the hospital, monitor vital signs, ins and outs peripheral protocol - Continue care per vascular surgery recommendations - Postoperatively patient developed hematoma at left groin/area of access. Repeat H&H ordered for morning - Currently on aspirin for procedure, continue as prescribed - As needed analgesia/antibiotics - Morning labs: CBC and BMP Diabetes mellitus - At time of interview [id number] into the 80s - Bedtime Lantus at this time - Recommend administering patient snack and recheck blood sugar at 2 AM, then ACHS - Hypoglycemic protocol as needed ESRD Status post kidney transplant - Follow-up with Dr. Galarza of nephrology - Continue chronic prednisone, tacrolimus and mycophenolate as prescribed Primary hypertension - Continue chronic amlodipine and lisinopril as prescribed with holding parameters Mixed hyperlipidemia - Continue chronic statin GERD - Continue PPI Insomnia - Continue and as needed trazodone Gait instability - Fall risk precaution, ambulate with assistance - Uses cane or walker at baseline Admission checklist [x] Code status: Full Code - Default [x] VTE Prophylaxis: Sequentials [x] Diet order on admission: Dietary Orders (From admission, onward) Start Ordered 03/03/25 1458 Adult diet [facility]; General; Regular Diet effective now Question Answer Comment Location [facility] Diet Type (req) General General Diet Regular 03/03/25 1501 [x] Medication reconciliation Health Care proxy with Phone number: Daughter Geni Ennis [phone] Brown Patient's daughter Magdalena updated at bedside and aware of plan for hospitalization. (Such he primarily lives in [place] though is currently visiting due to the of her father.) her sister Geni is the patient's healthcare proxy that was currently at work at time of H&P. Thank you for this consultation, we will follow along with you! [1] Past Medical History: Diagnosis Date CKD (chronic kidney disease) Diabetes mellitus ([facility] V24, [facility] V28) Hyperlipidemia Hypertension Insomnia Kidney transplanted Neuropathy [2] Past Surgical History: Procedure Laterality Date SECTION DIALYSIS FISTULA CREATION Left ORIF ANKLE FRACTURE TONSILLECTOMY TRANSPLANTATION RENAL [3] No current facility-administered medications on file prior to encounter. Current Outpatient Medications on File Prior to Encounter Medication Sig Dispense Refill ascorbic acid (VITAMIN C) 500 mg tablet Take 1 tablet (500 mg total) by mouth 1 (one) time each dayin the morning. aspirin 81 mg EC tablet Take 1 tablet (81 mg total) by mouth 1 (one) time each day. ferrous sulfate 325 mg (65 mg iron) EC tablet TAKE 1 TABLET BY MOUTH TWICE DAILY IN THE MORNING ANDIN THE EVENING gabapentin (NEURONTIN) 100 mg capsule Take 1 capsule (100 mg total) by mouth. at bedtime insulin lispro 100 unit/mL injection Inject 6 Units under the skin. Lantus Solostar U-100 Insulin 100 unit/mL (3 mL) injection pen 12 units in the morning or 6 units BID due to low blood sugars at night lisinopriL (PRINIVIL,ZESTRIL) 2.5 mg tablet Take 2 tablets (5 mg total) by mouth 1 (one) time each day. tacrolimus (PROGRAF) 1 mg capsule TAKE 3 CAPSULES BY MOUTH EVERY DAY IN THE MORNING and TAKE 2 CAPSULES BY MOUTH EVERY DAY IN THE EVENING Vitamin D3 25 mcg (1,000 unit) capsule Take 2 capsules (2,000 Units total) by mouth 1 (one) time each day in the morning. amLODIPine (NORVASC) 2.5 mg tablet Take 1 tablet (2.5 mg total) by mouth at bedtime. at bedtime. atorvastatin (LIPITOR) 80 mg tablet Take 1 tablet (80 mg total) by mouth at bedtime. denosumab (Prolia) 60 mg/mL syringe syringe inject 1 milliliter by subcutaneous route every 6 months in the upper arm, upper thigh or abdomen diclofenac (VOLTAREN) 1 % topical gel APPLY 2 GRAM TOPICALLY TO AFFECTED AREA(S) (tacn) 4 TIMES A DAY IN THE MORNING, AT NOON, IN THE EVENING, AND AT BEDTIME FOR UP TO 10 DAYS docusate sodium (COLACE) 100 mg capsule Take 1 capsule (100 mg total) by mouth 2 (two) times a day if needed for constipation. fluticasone propionate (FLONASE) 50 mcg/actuation nasal spray Administer 1 spray into affected nostril(s). melatonin 5 mg tablet Take 1 tablet (5 mg total) by mouth at bedtime. mycophenolate (MYFORTIC) 180 mg EC tablet Take 1 tablet (180 mg total) by mouth 2 (two) times a day. OneTouch Ultra Test test strip 4 (four) times a day. pantoprazole (PROTONIX) 40 mg EC tablet Take 1 tablet (40 mg total) by mouth 2 (two) times daily before breakfast and lunch. Do not crush, chew, or split. polyethylene glycol (MIRALAX) 17 gram packet Take 17 g by mouth 1 (one) time each day if needed forconstipation. predniSONE (DELTASONE) 5 mg tablet Take 1 tablet (5 mg total) by mouth 1 (one) time each day. traMADoL (ULTRAM) 50 mg tablet Take 1 tablet (50 mg total) by mouth every 6 (six) hours if needed for severe pain. Max Daily Amount: 200 mg (Patient not taking: Reported on 03/03/2025) traZODone (DESYREL) 100 mg tablet Take 1-2 tablets (100-200 mg total) by mouth at bedtime. [DISCONTINUED] cephalexin (KEFLEX) 500 mg capsule Take 1 capsule (500 mg total) by mouth 2 (two) times a day. for 7 days [DISCONTINUED] doxycycline hyclate (VIBRA-TABS) 100 mg tablet TAKE 1 TABLET BY MOUTH TWICE DAILY FOR 7 DAYS WITH A FULL GLASS OF WATER. Do not lie down for 30 minutes after taking. [DISCONTINUED] Jardiance 25 mg tablet Take 1 tablet (25 mg total) by mouth 1 (one) time each day inthe morning. Cosigned by Vijay Brown MD at 03/05/2025 11:12 PM EST Associated attestation - Vijay Brown MD - 03/05/2025 11:12 PM EST This is a split/shared visit with MINNA Hogan. I personally performed the medical decision making (MDM) for the care of this patient on 03/03/2025s documented below 74 year-old female with history of ESRD status post donor directed kidney transplantation, type 2 diabetes mellitus complicated by peripheral neuropathy, hypertension, hyperlipidemia, GERD who is POD#0 from popliteal arthrectomy and balloon angioplasty. The Hospitalist service has been consulted for management of the patient overnight after the patient developed a hematoma a the femoral puncturesite. The bleeding at the puncture site has been controlled with direct pressure. The patient will remainon bed rest tonight and no pharmacological DVT prophylaxis will be administered. Her blood counts will be rechecked in the morning. She will continue her low dose aspirin tomorrow if there is no further bleeding. Her anti-rejection drugs for her renal transplant will be continued unchanged. Her diabetes will be managed with insulin glargine and sliding scale insulin as indicated. Management of additional chronic medical problems as below. Vijay Brown MD 03/05/2025 11:04 PM EST documented in this encounter Plan of Treatment Upcoming Encounters Date Type Department Care Team (Late st Contact Info) Description 03/20/2025 1:00 PM EST Office Visit [facility] - [place] [address] [place] [address] Nando Botello MD [address] [place] [address] [phone] documented as of this encounter Procedures Procedure Name Priority Date/Time Associated Diagnosis Comments POCT GLUCOSE BLOOD Routine 03/04/2025 3: 14 PM EST CREATININE, SERUM Routine 03/04/2025 1:3 2 PM EST POCT GLUCOSE BLOOD Routine 03/04/2025 11 :20 AM EST EXTRA TUBES Routine 03/04/2025 10:36 AM EST LAVENDER - EDTA Routine 03/04/2025 10:36 AM EST CREATININE, SERUM Routine 03/04/2025 10: 36 AM EST POCT GLUCOSE BLOOD Routine 03/04/2025 8: 03 AM EST CBC WITH AUTO DIFFERENTIAL Routine 03/04/2025 5:49 AM EST CBC AND DIFFERENTIAL Routine 03/04/2025 5:49 AM EST BASIC METABOLIC PANEL Routine 03/04/2025 5:49 AM EST POCT GLUCOSE BLOOD Routine 03/03/2025 11 :16 PM EST POCT ACTIVATED CLOTTING TIME, KAOLIN Routine 03/03/2025 4:17 PM EST POCT ACTIVATED CLOTTING TIME, KAOLIN Routine 03/03/2025 4:00 PM EST POCT ACTIVATED CLOTTING TIME, KAOLIN Routine 03/03/2025 3:19 PM EST ANGIOGRAPHY LOWER EXT RIGHT Routine 03/03/2025 2:59 PM EST Critical limb ischemia of right lower extremity (CMS/HCC V24, CMS/HCC V28) CBC WITH AUTO DIFFERENTIAL Routine 03/03/2025 1:11 PM EST ACTIVATED PARTIAL THROMBOPLASTIN TIME Routine 03/03/2025 1:11 PM EST PROTHROMBIN TIME WITH INR Routine 03/03/2025 1:11 PM EST CBC AND DIFFERENTIAL Routine 03/03/2025 1:11 PM EST BASIC METABOLIC PANEL Routine 03/03/2025 1:11 PM EST documented in this encounter Results * (ABNORMAL) POCT Glucose, blood (03/04/2025 3:14 PM EST) Glucose POCT 286(H) 70 - 100 mg/dL 03/04/2025 3:16 PM EST [facility] Blood Capillary blood specimen / Unknown 03/04/2025 3:14 PM EST 03/04/2025 3:16 PM EST us Ko Banerjee MD LAB POINT OF CARE TE ST DOCKED DEVICE UNSOLICITED RESULTS Final Result [facility] [address] [place] [address], [place] [phone] * (ABNORMAL) Creatinine serum (03/04/2025 1:32 PM EST) Creatinine 1.39(H) 0.50 - 1.10 mg/dL 03/04/2025 3:47 PM EST [facility] eGFR 40(L) >=60 mL/min/1. 73m2 03/04/2025 3:47 PM EST [facility] Comment:Calculation based on the Chronic Kidney Disease Epidemiology Collaboration (CKD-EPI) equation refit without adjustment for race. Blood Venous blood specimen / Unknown Venipuncture / Unknown 03/04/2025 1:32 PM EST 03/04/2025 1:49 PM EST Regina BUITRAGO LAB BLOOD ORDERABLES Final Res ult Performing Organization Address City/[facility]/ZIP Co de Phone Number [facility] [address] [place] [address], [place] [phone] * (ABNORMAL) POCT Glucose, blood (03/04/2025 11:20 AM EST) Glucose POCT 249(H) 70 - 100 mg/dL 03/04/2025 11:21 AM EST [facility] Blood Capillary blood specimen / Unknown 03/04/2025 11:20 AM EST 03/04/2025 11:22 AM EST us Ko Banerjee MD LAB POINT OF CARE TE ST DOCKED DEVICE UNSOLICITED RESULTS Final Result Performing Organization Address City/[facility]/ZIP Co de Phone Number [facility] [address] [place] [address], [place] [phone] * Lavender tube (03/04/2025 10:36 AM EST) Extra Tube Hold for add-ons. 03/04/2025 12:03 PM EST [facility] Comment:Auto resulted. Blood Venous blood specimen / Unknown Venipuncture / Unknown 03/04/2025 10:36 AM EST 03/04/2025 10:42 AM EST us Ko Banerjee MD LAB BLOOD ORDERABLES Final Resul t [facility] [address] [place] [address], [place] [phone] * (ABNORMAL) Creatinine serum (03/04/2025 10:36 AM EST) Creatinine 1.46(H) 0.50 - 1.10 mg/dL 03/04/2025 11:19 AM EST [facility] eGFR 37(L) >=60 mL/min/1. 73m2 03/04/2025 11:19 AM EST [facility] Comment:Calculation based on the Chronic Kidney Disease Epidemiology Collaboration (CKD-EPI) equation refit without adjustment for race. Blood Venous blood specimen / Unknown Venipuncture / Unknown 03/04/2025 10:36 AM EST 03/04/2025 10:41 AM EST Regina BUITRAGO LAB BLOOD ORDERABLES Final Res ult Performing Organization Address City/[facility]/ZIP Co de Phone Number [facility] [address] [place] [address], * (ABNORMAL) POCT Glucose, blood (03/04/2025 8:03 AM EST) [facility] Glucose POCT 172(H) 70 - 100 mg/dL 03/04/2025 8:03 AM EST [facility] Blood Capillary blood specimen / Unknown 03/04/2025 8:03 AM EST 03/04/2025 8:05 AM EST Ko Banerjee MD LAB POINT OF CARE TE ST DOCKED DEVICE UNSOLICITED RESULTS Final Result [facility] [address] [place] [address], [place] [phone] * (ABNORMAL) CBC auto differential (03/04/2025 5:49 AM EST) Pathologist [facility] WBC 12.1(H) 4.8 - 10.8 K/mcL LAB HEMETOLOGY METHOD 03/04/2025 6:48 AM EST [facility] RBC 3.80 3.80 - 4.80 M/mcL LAB HEMETOLOGY METHOD 03/04/2025 6:48 AM [facility] Hemoglobin 11.5 11.5 - 16.0 g/dL LAB HEMETOLOGY METHOD 03/04/2025 6:48 AM [facility] Hematocrit 35.7 35.0 - 47.0 % LAB HEMETOLOGY METHOD 03/04/2025 6:48 AM [facility] MCV 93.7 79.0 - 98.0 FL LAB HEMETOLOGY METHOD 03/04/2025 6:48 AM [facility] MCH 30.2 27.0 - 32.0 pcg LAB HEMETOLOGY METHOD 03/04/2025 6:48 AM [facility] MCHC 32.2 32.0 - 37.0 g/dL LAB HEMETOLOGY METHOD 03/04/2025 6:48 AM [facility] RDW 15.9(H) 11.0 - 15.0 % LAB HEMETOLOGY METHOD 03/04/2025 6:48 AM [facility] Platelets 331 130 - 400 K/mcL LAB HEMETOLOGY METHOD 03/04/2025 6:48 AM [facility] MPV 11.7(H) 7.0 - 11.0 FL LAB HEMETOLOGY METHOD 03/04/2025 6:48 AM [facility] NRBC 0.0 <1.0 % LAB HEMETOLOGY METHOD 03/04/2025 6:48 AM [facility] NRBC Absolute 0.00 <0.10 K/mcL LAB HEMETOLOGY METHOD 03/04/2025 6:48 AM [facility] Neutrophils Relative 68.4 % LAB HEMETOLOGY METHOD 03/04/2025 6:48 AM [facility] Lymphocytes Relative 18.9 % LAB HEMETOLOGY METHOD 03/04/2025 6:48 AM [facility] Monocytes Relative 11.5 % LAB HEMETOLOGY METHOD 03/04/2025 6:48 AM [facility] Eosinophils Relative 0.7 % LAB HEMETOLOGY METHOD 03/04/2025 6:48 AM [facility] Basophils Relative 0.2 % LAB HEMETOLOGY METHOD 03/04/2025 6:48 AM [facility] Immature Granulocytes Relative 0.3 % LAB HEMETOLOGY METHOD 03/04/2025 6:48 AM [facility] Neutrophils Absolute 8.30(H) 1.50 - 7.00 K/mcL LAB HEMETOLOGY METHOD 03/04/2025 6:48 AM [facility] Lymphocytes Absolute 2.29 1.00 - 5.00 K/mcL LAB HEMETOLOGY METHOD 03/04/2025 6:48 AM [facility] Monocytes Absolute 1.39(H) 0.20 - 1.00 K/mcL LAB HEMETOLOGY METHOD 03/04/2025 6:48 AM [facility] Eosinophils Absolute 0.08 0.00 - 0.50 K/mcL LAB HEMETOLOGY METHOD 03/04/2025 6:48 AM [facility] Basophils Absolute 0.03 0.00 - 0.20 K/mcL LAB HEMETOLOGY METHOD 03/04/2025 6:48 AM [facility] Immature Granulocytes Absolute 0.04(H) 0.00 - 0.03 K/mcL LAB HEMETOLOGY METHOD 03/04/2025 6:48 AM [facility] Blood Venous blood specimen / Unknown Venipuncture / Unknown 03/04/2025 5:49 AM EST 03/04/2025 6:21 AM EST us Vijay Brown MD LAB BLOOD ORDERABLES Final Result [facility] [address] [place] [address], * (ABNORMAL) Basic metabolic panel (03/04/2025 5:49 AM EST) Sodium 140 133 - 145 mmol/L 03/04/2025 7:44 AM EST [facility] Potassium 4.8 3.5 - 5.5 mmol/L 03/04/2025 7:44 AM [facility] Chloride 104 96 - 110 mmol/L 03/04/2025 7:44 AM [facility] CO2 26 21 - 32 mmol/L 03/04/2025 7:44 AM [facility] Anion Gap 10 3 - 11 03/04/2025 7:44 AM [facility] Glucose 140(H) 70 - 100 mg/dL 03/04/2025 7:44 AM [facility] BUN 31(H) 5 - 25 mg/dL 03/04/2025 7:44 AM [facility] Creatinine 1.38(H) 0.50 - 1.10 mg/dL 03/04/2025 7:44 AM [facility] eGFR 40(L) >=60 mL/min/1. 73m2 03/04/2025 7:44 AM [facility] Comment:Calculation based on the Chronic Kidney Disease Epidemiology Collaboration (CKD-EPI) equation refit without adjustment for race. BUN/Creatinine Ratio 22.5 03/04/2025 7:44 AM [facility] Calcium 9.5 8.5 - 10.5 mg/dL 03/04/2025 7:44 AM [facility] Blood Venous blood specimen / Unknown Venipuncture / Unknown 03/04/2025 5:49 AM EST 03/04/2025 6:20 AM EST Vijay Brown MD LAB BLOOD ORDERABLES Final Result Performing Organization Address [facility]/ZIP Co de Phone Number [facility] [address] [place] [address], [place] [phone] * POCT Glucose, blood (03/03/2025 11:16 PM EST) Glucose POCT 84 70 - 100 mg/dL 03/03/2025 11:17 PM EST [facility] Blood Capillary blood specimen / Unknown 03/03/2025 11:16 PM EST 03/03/2025 11:19 PM EST Vijay Brown MD LAB POINT OF CARE T EST DOCKED DEVICE UNSOLICITED RESULTS Final Result Performing Organization Address [facility] Co de Phone Number [facility] [address] [place] [address], [place] [phone] * (ABNORMAL) POCT activated clotting time,kaolin (03/03/2025 4:17 PM EST) Activated Clotting Time Kaolin 189(H) 74 - 137 sec 03/03/2025 4:46 PM EST [facility] Blood Arterial blood specimen / Unknown 03/03/2025 4:17 PM EST 03/03/2025 4:48 PM EST Nando Botello MD LAB POINT OF CARE TE ST DOCKED DEVICE UNSOLICITED RESULTS Final Result Performing Organization Address [facility]/ZIP Co de Phone Number [facility] [address] [place] [address], [place] [phone] * (ABNORMAL) POCT activated clotting time,kaolin (03/03/2025 4:00 PM EST) Activated Clotting Time Kaolin 194(H) 74 - 137 sec 03/03/2025 4:46 PM EST [facility] Blood Arterial blood specimen / Unknown 03/03/2025 4:00 PM EST 03/03/2025 4:48 PM EST us Nando Botello MD LAB POINT OF CARE TE ST DOCKED DEVICE UNSOLICITED RESULTS Final Result Performing Organization Address [facility] Co de Phone Number [facility] [address] [place] [address], [place] [phone] * (ABNORMAL) POCT activated clotting time,kaolin (03/03/2025 3:19 PM EST) Pathologist [facility] Activated Clotting Time Kaolin 214(H) 74 - 137 sec 03/03/2025 4:46 PM EST [facility] Blood Arterial blood specimen / Unknown 03/03/2025 3:19 PM EST 03/03/2025 4:48 PM EST us Nando Botello MD LAB POINT OF CARE TE ST DOCKED DEVICE UNSOLICITED RESULTS Final Result Performing Organization Address [facility] de Phone Number [facility] [address] [place] [address], [place] [phone] * ANGIOGRAPHY LOWER EXT RIGHT (03/03/2025 2:59 PM EST) Anatomical Region Laterality Modality X-Ray Angiograph y Narrative 03/04/2025 6:49 AM EST Per op note Study Details 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 Clinical Background Per H&P Procedure Details Per op note us Kerry BUITRAGO CV INVASIVE VASCULAR PROCEDUR ES Final Result * (ABNORMAL) CBC auto differential (03/03/2025 1:11 PM EST) WBC 14.6(H) 4.8 - 10.8 K/mcL LAB HEMETOLOGY METHOD 03/03/2025 1:36 PM EST [facility] RBC 4.40 3.80 - 4.80 M/mcL LAB HEMETOLOGY METHOD 03/03/2025 1:36 PM [facility] Hemoglobin 13.5 11.5 - 16.0 g/dL LAB HEMETOLOGY METHOD 03/03/2025 1:36 PM [facility] Hematocrit 40.6 35.0 - 47.0 % LAB HEMETOLOGY METHOD 03/03/2025 1:36 PM [facility] MCV 92.7 79.0 - 98.0 FL LAB HEMETOLOGY METHOD 03/03/2025 1:36 PM [facility] MCH 30.8 27.0 - 32.0 pcg LAB HEMETOLOGY METHOD 03/03/2025 1:36 PM [facility] MCHC 33.3 32.0 - 37.0 g/dL LAB HEMETOLOGY METHOD 03/03/2025 1:36 PM [facility] RDW 15.7(H) 11.0 - 15.0 % LAB HEMETOLOGY METHOD 03/03/2025 1:36 PM [facility] Platelets 382 130 - 400 K/mcL LAB HEMETOLOGY METHOD 03/03/2025 1:36 PM [facility] MPV 12.1(H) 7.0 - 11.0 FL LAB HEMETOLOGY METHOD 03/03/2025 1:36 PM [facility] NRBC 0.0 <1.0 % LAB HEMETOLOGY METHOD 03/03/2025 1:36 PM [facility] NRBC Absolute 0.00 <0.10 K/mcL LAB HEMETOLOGY METHOD 03/03/2025 1:36 PM [facility] Neutrophils Relative 84.9 % LAB HEMETOLOGY METHOD 03/03/2025 1:36 PM [facility] Lymphocytes Relative 8.6 % LAB HEMETOLOGY METHOD 03/03/2025 1:36 PM EST [facility] Monocytes Relative 5.5 % LAB HEMETOLOGY METHOD 03/03/2025 1:36 PM [facility] Eosinophils Relative 0.2 % LAB HEMETOLOGY METHOD 03/03/2025 1:36 PM [facility] Basophils Relative 0.3 % LAB HEMETOLOGY METHOD 03/03/2025 1:36 PM [facility] Immature Granulocytes Relative 0.5 % LAB HEMETOLOGY METHOD 03/03/2025 1:36 PM [facility] Neutrophils Absolute 12.40(H) 1.50 - 7.00 K/mcL LAB HEMETOLOGY METHOD 03/03/2025 1:36 PM [facility] Lymphocytes Absolute 1.26 1.00 - 5.00 K/mcL LAB HEMETOLOGY METHOD 03/03/2025 1:36 PM [facility] Monocytes Absolute 0.80 0.20 - 1.00 K/mcL LAB HEMETOLOGY METHOD 03/03/2025 1:36 PM [facility] Eosinophils Absolute 0.03 0.00 - 0.50 K/mcL LAB HEMETOLOGY METHOD 03/03/2025 1:36 PM [facility] Basophils Absolute 0.04 0.00 - 0.20 K/mcL LAB HEMETOLOGY METHOD 03/03/2025 1:36 PM [facility] Immature Granulocytes Absolute 0.07(H) 0.00 - 0.03 K/mcL LAB HEMETOLOGY METHOD 03/03/2025 1:36 PM [facility] Blood Venous blood specimen / Unknown Venipuncture / Unknown 03/03/2025 1:11 PM EST 03/03/2025 1:30 PM EST us Kerry BUITRAGO LAB BLOOD ORDERABLES Final Re sult [facility] [address] [place] [address], [place] [phone] * Activated partial thromboplastin time (03/03/2025 1:11 PM EST) [facility] aPTT 30.1 24.1 - 39.3 sec LAB COAGULATION METHOD 03/03/2025 1:42 PM EST [facility] Blood Venous blood specimen / Unknown Venipuncture / Unknown 03/03/2025 1:11 PM EST 03/03/2025 1:30 PM EST us Kerry BUITRAGO LAB BLOOD ORDERABLES Final Re sult [facility] [address] [place] [address], [place] [phone] * Prothrombin time with INR (03/03/2025 1:11 PM EST) [facility] Protime 12.8 10.6 - 13.9 sec LAB COAGULATION METHOD 03/03/2025 1:42 PM EST [facility] INR 1.0 LAB COAGULATION METHOD 03/03/2025 1:42 PM EST [facility] Blood Venous blood specimen / Unknown Venipuncture / Unknown 03/03/2025 1:11 PM EST 03/03/2025 1:30 PM EST us Kerry BUITRAGO LAB BLOOD ORDERABLES Final Re sult [facility] [address] [place] [address], [place] [phone] * (ABNORMAL) Basic metabolic panel (03/03/2025 1:11 PM EST) [facility] Sodium 134 133 - 145 mmol/L 03/03/2025 2:02 PM EST [facility] Potassium 4.5 3.5 - 5.5 mmol/L 03/03/2025 2:02 PM [facility] Chloride 99 96 - 110 mmol/L 03/03/2025 2:02 PM [facility] CO2 26 21 - 32 mmol/L 03/03/2025 2:02 PM [facility] Anion Gap 9 3 - 11 03/03/2025 2:02 PM [facility] Glucose 224(H) 70 - 100 mg/dL 03/03/2025 2:02 PM [facility] BUN 23 5 - 25 mg/dL 03/03/2025 2:02 PM [facility] Creatinine 0.96 0.50 - 1.10 mg/dL 03/03/2025 2:02 PM [facility] eGFR 62 >=60 mL/min/1. 73m2 03/03/2025 2:02 PM [facility] Comment:Calculation based on the Chronic Kidney Disease Epidemiology Collaboration (CKD-EPI) equation refit without adjustment for race. BUN/Creatinine Ratio 24.0 03/03/2025 2:02 PM [facility] Calcium 9.8 8.5 - 10.5 mg/dL 03/03/2025 2:02 PM [facility] Blood Venous blood specimen / Unknown Venipuncture / Unknown 03/03/2025 1:11 PM EST 03/03/2025 1:30 PM EST us Kerry BUITRAGO LAB BLOOD ORDERABLES Final Re sult [facility] [address] [place] [address], documented in this encounter Visit Diagnoses Diagnosis Critical limb ischemia of right lower extremity (CMS/HCC V24, CMS/HCC V28)- Primary Critical limb ischemia of right lower extremity (CMS/HCC V24, CMS/HCC V28) documented in this encounter Admitting Diagnoses Diagnosis Critical limb ischemia of right lower extremity (CMS/HCC V24, CMS/HCC V28) documented in this encounter Administered Medications Inactive Administered Medications - up to 3 most recent administrations Medication Order MAR Action Action Date Dose Rate Site acetaminophen (TYLENOL) tablet 1,000 mg 1,000 mg, oral, Every 6 hours scheduled, First dose on Sun03/03/25 at 1800, Recovery [facility] On Unit Given 03/04/2025 5:41 PM EST 1,000 mg Given 03/04/2025 12:01 PM EST 1,000 mg Given 03/04/2025 6:15 AM EST 1,000 mg amLODIPine (NORVASC) tablet 2.5 mg 2.5 mg, oral, Nightly, First dose on Sun03/03/25 at 2330 Given 03/03/2025 11:54 PM EST 2.5 mg ascorbic acid (VITAMIN C) tablet 500 mg 500 mg, oral, Every morning, First dose on Sun03/04/25 at 0700 Given 03/04/2025 6:16 AM EST 500 mg aspirin EC tablet 81 mg 81 mg, oral, Daily, First dose on Sun03/04/25 at 0900, For 1 dose, Do not crush, chew, or split. Given 03/04/2025 8:23 AM EST 81 mg atorvastatin (LIPITOR) tablet 80 mg 80 mg, oral, Nightly, First dose on Sun03/03/25 at 2330 Given 03/03/2025 11:55 PM EST 80 mg dextrose (D50W) 50% injection 12.5 g 12.5 g, intravenous, Every 15 min PRN, low blood sugar, moderate hypoglycemia *Patient is Unconscious, NPO, unable to swallow: BG 54 - 69 mg/dl*, Starting on Sun03/03/25 at 2327 dextrose (D50W) 50% injection 25 g 25 g, intravenous, Every 15 min PRN, low blood sugar, severe hypoglycemia *Patient is Unconscious, NPO, unable to swallow: BG LESS than 54 mg/dL*, Starting on Sun03/03/25 at 2327 dextrose 15 gram/60 mL oral solution 15 g 15 g, oral, Every 15 min PRN, low blood sugar, hypoglycemia *Patient conscious AND able to drink and swallow safely*, Starting on Sun03/03/25 at 2327 dextrose 15 gram/60 mL oral solution 30 g 30 g, oral, Every 15 min PRN, low blood sugar, hypoglycemia *Patient conscious AND able to drink and swallow safely*, Starting on Sun03/03/25 at 232 ferrous sulfate tablet 325 mg 325 mg, oral, 2 times daily, First dose on Sun03/03/25 at 2330, Ordered as ferrous sulfate. 325 mg ferrous sulfate = 65 mg elemental iron. Given 03/04/2025 8:23 AM EST 325 mg Given 03/03/2025 11:55 PM EST 325 mg gabapentin (NEURONTIN) capsule 100 mg 100 mg, oral, Nightly, First dose on Sun03/03/25 at 2330 Given 03/03/2025 11:54 PM EST 100 mg glucagon HCL injection 1 mg 1 mg, intramuscular, Once as needed, low blood sugar, severe hypoglycemia, Starting on Sun03/03/25 at 232, For 1 dose HYDROmorphone (DILAUDID) injection 0.2 mg 0.2 mg, intravenous, Once, On Sun03/03/25 at 233, For 1 dose, Obtain vital signs prior to administration and document. Hold if SBP <110,RR<12, Lethargy/Somnolence Given 03/03/2025 11:53 PM EST 0.2 mg insulin lispro injection 1-6 Units 1-6 Units, subcutaneous, 4 times daily before meals and nightly, First dose on Sun03/04/25 at 0200, Indication: Total Daily Dose (TDD) LESS than 40 units Correction Scale: Low Dose Administer with meal and/or mealtime dose of insulin to correct high blood glucose If mealtime insulin dose not given (e.g. patient NPO or not eating), still administer correction factor for high blood glucose Given 03/04/2025 4:41 PM EST 3 Units Right Upper Arm (Back) Given 03/04/2025 12:01 PM EST 2 Units R ight Upper Arm (Back) Given 03/04/2025 8:22 AM EST 1 Units Ri ght Upper Arm (Back) lisinopriL (PRINIVIL,ZESTRIL) tablet 5 mg 5 mg, oral, Daily, First dose on Sun03/04/25 at 0900 Given 03/04/2025 8:23 AM EST 5 mg melatonin tablet 4.5 mg 4.5 mg (rounded from 5 mg), oral, Nightly, First dose on Sun03/03/25 at 2330 Given 03/03/2025 11:54 PM EST 4.5 mg mycophenolate (MYFORTIC) EC tablet 180 mg 180 mg, oral, 2 times daily, First dose on Sun03/03/25 at 2330, Do not crush or split. Give on an empty stomach. Hazardous Medication Intact: - Single pair of ASTM standard [id number] certified gloves - Eye/face protection if vomit or potential to spit up - Do NOT split, crush, or open dosage units Given 03/04/2025 8:[address] 180 mg Given 03/03/2025 11:55 PM EST 180 mg ondansetron (PF) (ZOFRAN) injection 4 mg 4 mg, intravenous, Every 8 hours PRN, vomiting, nausea, Starting on Sun03/03/25 at 1457, Recovery & On Unit, -ONLY give IV if patient is unable to take orally. -If inadequate response within 30 minutes, proceed to next-line agent or contact provider if no further options ordered. ondansetron ODT (ZOFRAN-ODT) disintegrating tablet 4 mg 4 mg, oral, Every 8 hours PRN, vomiting, nausea, Starting on Sun03/03/25 at 1457, Recovery & On Unit, -Give IV if patient is unable to take orally. -If inadequate response within 30 minutes, proceed to next-line agent or contact provider if no further options ordered. For ODT tablets: -Do not remove from blister pack until just before administering. -Patient should allow tablet to dissolve on tongue. oxyCODONE (ROXICODONE) immediate release tablet 10 mg 10 mg, oral, Every 6 hours PRN, severe pain, Starting on Sun03/03/25 at 2311 oxyCODONE (ROXICODONE) immediate release tablet 5 mg 5 mg, oral, Every 6 hours PRN, moderate pain, Starting on Sun03/03/25 at 2311 pantoprazole (PROTONIX) EC tablet 40 mg 40 mg, oral, 2 times daily before breakfast and lunch, First dose on Sun03/04/25 at 0730, Do not crush, chew, or split. Given 03/04/2025 12:01 PM EST 40 mg Given 03/04/2025 6:16 AM EST 40 mg predniSONE (DELTASONE) tablet 5 mg 5 mg, oral, Daily, First dose on Sun03/04/25 at 0900 Given 03/04/2025 8:23 AM EST 5 mg sodium chloride 0.9 % bolus 1,000 mL 1,000 mL, intravenous, at 1,000 mL/hr, Administer over 1 Hours, Once, On Sun03/04/25 at 1215, For 1 dose New Bag 03/04/2025 12:14 PM EST 1,000 mL 1000 mL/hr sodium chloride 0.9 % bolus 500 mL 500 mL, intravenous, at 500 mL/hr, Administer over 1 Hours, Once, On Sun03/04/25 at 0930, For 1 dose New Bag 03/04/2025 9:37 AM EST 500 mL 500 mL/hr sodium chloride 0.9 % flush 10 mL 10 mL, intravenous, 2 times daily, First dose on Sun03/03/25 at 2215 Given 03/04/2025 8:27 AM EST 10 mL Given 03/04/2025 12:01 AM EST 10 mL sodium chloride 0.9 % flush 10 mL 10 mL, intravenous, As needed, line care, Starting on Sun03/03/25 at 2156 sodium chloride 0.9 % infusion 75 mL/hr, intravenous, Continuous, Starting on Sun03/03/25 at 1315, Preprocedure tacrolimus (PROGRAF) capsule 2 mg 2 mg, oral, Nightly, First dose on Sun03/03/25 at 2330, Hazardous Medication Intact: - Single pair of ASTM standard [id number] certified gloves - Eye/face protection if vomit or potential to spit up Manipulated (opening capsule): - Double pair of ASTM standard [id number] certified gloves - Eye/face protection if vomit or potential to spit up - Staff at reproductive risk must also wear a hazardous gown Given 03/03/2025 11:54 PM EST 2 mg tacrolimus (PROGRAF) capsule 3 mg 3 mg, oral, Daily, First dose on Sun03/04/25 at 0900, Hazardous Medication Intact: - Single pair of ASTM standard [id number] certified gloves - Eye/face protection if vomit or potential to spit up Manipulated (opening capsule): - Double pair of ASTM standard [id number] certified gloves - Eye/face protection if vomit or potential to spit up - Staff at reproductive risk must also wear a hazardous gown Given 03/04/2025 8:23 AM EST 3 mg documented in this encounter Discontinued Medications Medication Sig Discontinue Reason Start Date End Da te cephalexin (KEFLEX) 500 mg capsule Take 1 capsule (500 mg total) by mouth 2 (two) times a day. for 7 days 09/14/2023 03/03/2025 doxycycline hyclate (VIBRA-TABS) 100 mg tablet TAKE 1 TABLET BY MOUTH TWICE DAILY FOR 7 DAYS WITH A FULL GLASS OF WATER. Do not lie down for 30 minutes after taking. 09/14/2023 03/03/2025 Jardiance 25 mg tablet Take 1 tablet (25 mg total) by mouth 1 (one) time each day in the morning. 03/03/2025 documented as of this encounter Historical Medications * This list may reflect changes made after this encounter. traZODone (DESYREL) 100 mg tablet Take 1-2 tablets (100-200 mg total) by mouth at bedtime. traMADoL (ULTRAM) 50 mg tablet Take 1 tablet (50 mg total) by mouth every 6 (six) hours if needed for severe pain. Max Daily Amount: 200 mg predniSONE (DELTASONE) 5 mg tablet Take 1 tablet (5 mg total) by mouth 1 (one) time each day. polyethylene glycol (MIRALAX) 17 gram packet Take 17 g by mouth 1 (one) time each day if needed for constipation. pantoprazole (PROTONIX) 40 mg EC tablet Take 1 tablet (40 mg total) by mouth 2 (two) times daily before breakfast and lunch. Do not crush, chew, or split. mycophenolate (MYFORTIC) 180 mg EC tablet Take 1 tablet (180 mg total) by mouth 2 (two) times a day. atorvastatin (LIPITOR) 80 mg tablet Take 1 tablet (80 mg total) by mouth at bedtime. amLODIPine (NORVASC) 2.5 mg tablet Take 1 tablet (2.5 mg total) by mouth at bedtime. at bedtime. added in this encounter Active and Recently Administered Medications Times are shown in EST. Scheduled Medication Order 03/02/2025 03/03/2025 03/04/2025 acetaminophen (TYLENOL) tablet 1,000 mg 1,000 mg, oral, Every 6 hours scheduled, First dose on Sun03/03/25 at 1800, Recovery & On Unit 1800 (Canceled Entry - Provider: Automatic Discharge Provider - Comment: Automatically canceled at discontinue of medication order)2354 (Given - Provider: Luci Anrold RN) 0615 (Given - Provider: Luci Arnold RN)1201 (Given - Provider: Roosevelt Rivera RN)1741 (Given - Provider: Roosevelt Rivera RN) amLODIPine (NORVASC) tablet 2.5 mg 2.5 mg, oral, Nightly, First dose on Sun03/03/25 at 2330 2354 (Given - Provider: Luci Arnold RN) 2100 (Canceled Entry - Provider: Automatic Discharge Provider - Comment: Automatically canceled at discontinue of medication order) ascorbic acid (VITAMIN C) tablet 500 mg 500 mg, oral, Every morning, First dose on Sun03/04/25 at 0700 0616 (Given - Provid er: Luci Arnold RN) aspirin EC tablet 81 mg (COMPLETED) 81 mg, oral, Daily, First dose on Sun03/04/25 at 0900, For 1 dose, Do not crush, chew, or split. 0823 (Given - Provid er: Roosevelt Rivera RN) atorvastatin (LIPITOR) tablet 80 mg 80 mg, oral, Nightly, First dose on Sun03/03/25 at 2330 2355 (Given - Provider: Luci Arnold RN) 2100 (Canceled Entry - Provider: Automatic Discharge Provider - Comment: Automatically canceled at discontinue of medication order) fentaNYL (PF) (SUBLIMAZE) injection 25 mcg 25 mcg, intravenous, Once, On Sun03/03/25 at 1545, For 1 dose, Recovery & On Unit 1545 (Canceled Entry - Provider: Automatic Discharge Provider - Comment: Automatically canceled at discontinue of medication order) ferrous sulfate tablet 325 mg 325 mg, oral, 2 times daily, First dose on Sun03/03/25 at 2330, Ordered as ferrous sulfate. 325 mg ferrous sulfate = 65 mg elemental iron. 2355 (Given - Provider: Luci Arnold RN) 0823 (Given - Provider: Roosevelt Rivera RN)2100 (Canceled Entry - Provider: Automatic Discharge Provider - Comment: Automatically canceled at discontinue of medication order) gabapentin (NEURONTIN) capsule 100 mg 100 mg, oral, Nightly, First dose on Sun03/03/25 at 2330 2354 (Given - Provider: Luci Arnold RN) 2100 (Canceled Entry - Provider: Automatic Discharge Provider - Comment: Automatically canceled at discontinue of medication order) HYDROmorphone (DILAUDID) injection 0.2 mg (COMPLETED) 0.2 mg, intravenous, Once, On Sun03/03/25 at 2330, For 1 dose, Obtain vital signs prior to administration and document. Hold if SBP <110,RR<12, Lethargy/Somnolence 235 (Given - Provider: Luci Arnold RN) insulin lispro injection 1-6 Units 1-6 Units, subcutaneous, 4 times daily before meals and nightly, First dose on Sun03/04/25 at 0200, Indication: Total Daily Dose (TDD) LESS than 40 units Correction Scale: Low Dose Administer with meal and/or mealtime dose of insulin to correct high blood glucose If mealtime insulin dose not given (e.g. patient NPO or not eating), still administer correction factor for high blood glucose 0253 (Not Given - Provider: Luci Arnold RN - Reason: See Provider Order - Comment: poc 84)0822 (Given - Provider: Roosevelt Rivera RN)1201 (Given - Provider: Roosveelt Rivera RN)1641 (Given - Provider: Roosevelt Rivera RN)2100 (Canceled Entry - Provider: Automatic Discharge Provider - Comment: Automatically canceled at discontinue of medication order) lisinopriL (PRINIVIL,ZESTRIL) tablet 5 mg 5 mg, oral, Daily, First dose on Sun03/04/25 at 0900 0823 (Given - Provid er: Roosevelt Rivera RN) melatonin tablet 4.5 mg 4.5 mg (rounded from 5 mg), oral, Nightly, First dose on Sun03/03/25 at 2330 2354 (Given - Provider: Luci Arnold RN) 2100 (Canceled Entry - Provider: Automatic Discharge Provider - Comment: Automatically canceled at discontinue of medication order) mycophenolate (MYFORTIC) EC tablet 180 mg 180 mg, oral, 2 times daily, First dose on Sun03/03/25 at 2330, Do not crush or split. Give on an empty stomach. Hazardous Medication Intact: - Single pair of ASTM standard [id number] certified gloves - Eye/face protection if vomit or potential to spit up - Do NOT split, crush, or open dosage units 2355 (Given - Provider: Luci Arnold RN) 0822 (Given - Provider: Roosevelt Rivera RN)2100 (Canceled Entry - Provider: Automatic Discharge Provider - Comment: Automatically canceled at discontinue of medication order) pantoprazole (PROTONIX) EC tablet 40 mg 40 mg, oral, 2 times daily before breakfast and lunch, First dose on Sun03/04/25 at 0730, Do not crush, chew, or split. 0616 (Given - Provid er: Luci Arnold RN - Comment: clustering care retimed)1201 (Given - Provider: Roosevelt Rivera RN) predniSONE (DELTASONE) tablet 5 mg 5 mg, oral, Daily, First dose on Sun03/04/25 at 0900 0823 (Given - Provid er: Roosevelt Rivera RN) sodium chloride 0.9 % bolus 1,000 mL (COMPLETED) 1,000 mL, intravenous, at 1,000 mL/hr, Administer over 1 Hours, Once, On Sun03/04/25 at 1215, For 1 dose 1214 (New Bag - Provider: Roosevelt Rivera RN)1314 (Stopped - Provider: Roosevelt Rivera RN) sodium chloride 0.9 % bolus 500 mL (COMPLETED) 500 mL, intravenous, at 500 mL/hr, Administer over 1 Hours, Once, On Sun03/04/25 at 0930, For 1 dose 0937 (New Bag - Provider: Roosevelt Rivera RN)1036 (Stopped - Provider: Roosevelt Rivera RN) sodium chloride 0.9 % flush 10 mL(Linked Group 1) 10 mL, intravenous, 2 times daily, First dose on Sun03/03/25 at 2215 0001 (Given - Provid er: Luci Arnold RN)0827 (Given - Provider: Roosevelt Rivera RN)2100 (Canceled Entry - Provider: Automatic Discharge Provider - Comment: Automatically canceled at discontinue of medication order) tacrolimus (PROGRAF) capsule 2 mg(Linked Group 2) 2 mg, oral, Nightly, First dose on Sun03/03/25 at 2330, Hazardous Medication Intact: - Single pair of ASTM standard [id number] certified gloves - Eye/face protection if vomit or potential to spit up Manipulated (opening capsule): - Double pair of ASTM standard [id number] certified gloves - Eye/face protection if vomit or potential to spit up - Staff at reproductive risk must also wear a hazardous gown 2354 (Given - Provider: Luci Arnold RN) 2100 (Canceled Entry - Provider: Automatic Discharge Provider - Comment: Automatically canceled at discontinue of medication order) tacrolimus (PROGRAF) capsule 3 mg(Linked Group 2) 3 mg, oral, Daily, First dose on Sun03/04/25 at 0900, Hazardous Medication Intact: - Single pair of ASTM standard [id number] certified gloves - Eye/face protection if vomit or potential to spit up Manipulated (opening capsule): - Double pair of ASTM standard [id number] certified gloves - Eye/face protection if vomit or potential to spit up - Staff at reproductive risk must also wear a hazardous gown 0823 (Given - Provid er: Roosevelt Rivera RN) Continuous Medication Order 03/02/2025 03/03/2025 03/04/2025 sodium chloride 0.9 % infusion 75 mL/hr, intravenous, Continuous, Starting on Sun03/03/25 at 1315, Preprocedure 1315 (Canceled Entry - Provi paula: Automatic Discharge Provider - Comment: Automatically canceled at discontinue of medication order) sodium chloride 0.9 % infusion 75 mL/hr, intravenous, Continuous, Starting on Sun03/03/25 at 1530, Recovery (only) 1530 (Canceled Entry - Provi paula: Automatic Discharge Provider - Comment: Automatically canceled at discontinue of medication order) PRN Medication Order 03/02/2025 03/03/2025 03/04/2025 dextrose (D50W) 50% injection 12.5 g 12.5 g, intravenous, Every 15 min PRN, low blood sugar, moderate hypoglycemia *Patient is Unconscious, NPO, unable to swallow: BG 54 - 69 mg/dl*, Starting on Sun03/03/25 at 2327 dextrose (D50W) 50% injection 25 g 25 g, intravenous, Every 15 min PRN, low blood sugar, severe hypoglycemia *Patient is Unconscious, NPO, unable to swallow: BG LESS than 54 mg/dL*, Starting on Sun03/03/25 at 2327 dextrose 15 gram/60 mL oral solution 15 g 15 g, oral, Every 15 min PRN, low blood sugar, hypoglycemia *Patient conscious AND able to drink and swallow safely*, Starting on Sun03/03/25 at 2327 dextrose 15 gram/60 mL oral solution 30 g 30 g, oral, Every 15 min PRN, low blood sugar, hypoglycemia *Patient conscious AND able to drink and swallow safely*, Starting on Sun03/03/25 at 2327 fentaNYL (PF) (SUBLIMAZE) injection (CANCELED) As needed, Starting on Sun03/03/25 at 1359, Intraprocedure 1359 (Given - Provider: Clarke Dunn RN)1428 (Given - Provider: Clarke Dunn RN)1434 (Given - Provider: Clarke Dunn RN)1437 (Given - Provider: Clarke Dunn RN)1442 (Given - Provider: Clarke Dunn RN) glucagon HCL injection 1 mg 1 mg, intramuscular, Once as needed, low blood sugar, severe hypoglycemia, Starting on Sun03/03/25 at 2327, For 1 dose heparin (PF) in 0.9 % sodium chloride 2 units/mL flush infusion (CANCELED) As needed, Starting on Sun03/03/25 at 1404, Intraprocedure 1404 (Given - Provider: Tabitha Marshall) heparin (UFH) injection (CANCELED) As needed, Starting on Sun03/03/25 at 1442, Intraprocedure 1442 (Given - Provider: Clarke Dunn RN) hydrALAZINE (APRESOLINE) injection (CANCELED) As needed, Starting on Sun03/03/25 at 1353, Intraprocedure 1353 (Given - Provider: Clarke Dunn RN) iopamidoL (ISOVUE-300) 300 mg iodine /mL (61 %) solution (CANCELED) As needed, Starting on Sun03/03/25 at 1359, Intraprocedure 1359 (Given - Provider: Nando Botello MD) lidocaine (XYLOCAINE) 1 % injection (CANCELED) As needed, Starting on Sun03/03/25 at 1358, Intraprocedure 1358 (Given - Provider: Nando Botello MD - Comment: LT FEM) midazolam (VERSED) injection (CANCELED) As needed, Starting on Sun03/03/25 at 1359, Intraprocedure 1359 (Given - Provider: Clarke Dunn, RN)1416 (Given - Provider: Clarke Dunn, RN)1428 (Given - Provider: Clarke Dunn, KAVITHA) nitroglycerin (TRIDIL) injection (CANCELED) As needed, Starting on Sun03/03/25 at 1423, Intraprocedure 1423 (Given - Provider: Nando Botello MD) ondansetron (PF) (ZOFRAN) injection 4 mg(Linked Group 3) 4 mg, intravenous, Every 8 hours PRN, vomiting, nausea, Starting on Sun03/03/25 at 1457, Recovery & On Unit, -ONLY give IV if patient is unable to take orally. -If inadequate response within 30 minutes, proceed to next-line agent or contact provider if no further options ordered. ondansetron ODT (ZOFRAN-ODT) disintegrating tablet 4 mg(Linked Group 3) 4 mg, oral, Every 8 hours PRN, vomiting, nausea, Starting on Sun03/03/25 at 1457, Recovery & On Unit, -Give IV if patient is unable to take orally. -If inadequate response within 30 minutes, proceed to next-line agent or contact provider if no further options ordered. For ODT tablets: -Do not remove from blister pack until just before administering. -Patient should allow tablet to dissolve on tongue. oxyCODONE (ROXICODONE) immediate release tablet 10 mg 10 mg, oral, Every 6 hours PRN, severe pain, Starting on Sun03/03/25 at 2311 oxyCODONE (ROXICODONE) immediate release tablet 5 mg 5 mg, oral, Every 4 hours PRN, Breakthrough pain, Starting on Sun03/03/25 at 1457, Recovery & On Unit oxyCODONE (ROXICODONE) immediate release tablet 5 mg 5 mg, oral, Every 6 hours PRN, moderate pain, Starting on Sun03/03/25 at 2311 sodium chloride 0.9 % flush 10 mL(Linked Group 1) 10 mL, intravenous, As needed, line care, Starting on Sun03/03/25 at 2156 traZODone (DESYREL) tablet 100 mg 100 mg, oral, Nightly PRN, sleep, Starting on Sun03/03/25 at 2314 Linked Groups Order Group 1: Insert peripheral IV (CANCELED) STAT, Once, On Sun03/03/25 at 215, For 1 occurrence And Maintain IV access (CANCELED) Until discontinued, Starting on Sun03/03/25 at 2156, Until Specified And Saline lock IV (CANCELED) Routine, Once, On Sun03/03/25 at 2156, For 1 occurrence And sodium chloride 0.9 % flush 10 mLJump to med 10 mL, intravenous, 2 times daily, First dose on Sun03/03/25 at 2215 And sodium chloride 0.9 % flush 10 mLJump to med 10 mL, intravenous, As needed, line care, Starting on Sun03/03/25 at 2156 Group 2: tacrolimus (PROGRAF) capsule 3 mgJump to med 3 mg, oral, Daily, First dose on Sun03/04/25 at 0900, Hazardous Medication Intact: - Single pair of ASTM standard [id number] certified gloves - Eye/face protection if vomit or potential to spit up Manipulated (opening capsule): - Double pair of ASTM standard [id number] certified gloves - Eye/face protection if vomit or potential to spit up - Staff at reproductive risk must also wear a hazardous gown And tacrolimus (PROGRAF) capsule 2 mgJump to med 2 mg, oral, Nightly, First dose on Sun03/03/25 at 2330, Hazardous Medication Intact: - Single pair of ASTM standard [id number] certified gloves - Eye/face protection if vomit or potential to spit up Manipulated (opening capsule): - Double pair of ASTM standard [id number] certified gloves - Eye/face protection if vomit or potential to spit up - Staff at reproductive risk must also wear a hazardous gown Group 3: ondansetron ODT (ZOFRAN-ODT) disintegrating tablet 4 mgJump to med 4 mg, oral, Every 8 hours PRN, vomiting, nausea, Starting on Sun03/03/25 at 1457, Recovery & On Unit, -Give IV if patient is unable to take orally. -If inadequate response within 30 minutes, proceed to next-line agent or contact provider if no further options ordered. For ODT tablets: -Do not remove from blister pack until just before administering. -Patient should allow tablet to dissolve on tongue. Or ondansetron (PF) (ZOFRAN) injection 4 mgJump to med 4 mg, intravenous, Every 8 hours PRN, vomiting, nausea, Starting on Sun03/03/25 at 1457, Recovery & On Unit, -ONLY give IV if patient is unable to take orally. -If inadequate response within 30 minutes, proceed to next-line agent or contact provider if no further options ordered. documented in this encounter Orders Medications Ordered That Sarkis ht Not Have Been Administered Count Last Ordered Date First Ordered Date aspirin chewable tablet 81 mg 1 03/03/2025 dextrose (D50W) 50% injection 12.5 g 1 11/2024 dextrose (D50W) 50% injection 25 g 1 2024 dextrose 15 gram/60 mL oral solution 15 g 1 03/03/2025 dextrose 15 gram/60 mL oral solution 30 g 1 03/03/2025 fentaNYL (PF) (SUBLIMAZE) injection 1 03/03 fentaNYL (PF) (SUBLIMAZE) injection 25 mcg 1 03/03/2025 glucagon HCL injection 1 mg 1 03/03/2025 heparin (PF) in 0.9 % sodium chloride 2 units/mL flush infusion 1 03/03/2025 heparin (UFH) injection 1 03/03/2025 hydrALAZINE (APRESOLINE) injection 1 2024 iopamidoL (ISOVUE-300) 300 m g iodine /mL (61 %) solution 1 03/03/2025 lidocaine (XYLOCAINE) 1 % injection 1 03/03 midazolam (VERSED) injection 1 03/03/2025 nitroglycerin (TRIDIL) injection 1 12/09/20 25 ondansetron (PF) (ZOFRAN) injection 4 mg 1 03/03/2025 ondansetron ODT (ZOFRAN-ODT) disintegrating tablet 4 mg 1 03/03/2025 oxyCODONE (ROXICODONE) immed iate release tablet 10 mg 1 03/03/2025 oxyCODONE (ROXICODONE) immed iate release tablet 5 mg 2 03/03/2025 sodium chloride 0.9 % flush 10 mL 3 025 sodium chloride 0.9 % infusion 2 03/03/2025 traZODone (DESYREL) tablet 100 mg 1 025 Lab Orders Without Results Count Last Ordered D ate First Ordered Date POCT GLUCOSE, BLOOD 3 03/04/2025 Diet Count Last Ordered Date First Orde red Date ADULT DISCHARGE DIET 1 03/03/2025 Nursing Count Last Ordered Date First Orde red Date FOLLOW UP WITH DEPARTMENT 1 03/03/2025 NOTIFY PROVIDER - INDICATE REASON 1 025 TOBACCO CESSATION EDUCATION 1 03/03/2025 WOUND CARE OP FOLLOW-UP 1 03/03/2025 Consult Count Last Ordered Date First Orde red Date IP CONSULT TO INTERNAL MEDICINE 1 WOUND CARE INPATIENT FOLLOW-UP 1 03/03/2025 Admission Count Last Ordered Date First Orde red Date INITIATE EXTENDED RECOVERY 1 03/04/2025 INITIATE OBSERVATION STATUS 1 03/03/2025 Discharge Count Last Ordered Date First Orde red Date DISCHARGE PATIENT 2 03/04/2025 03/03/2025 CORE MEASURES Count Last Ordered Date First Ord ered Date DISCHARGE ACTIVITY 2 03/03/2025 REASON FOR NO VTE PROPHYLAXI S - HOSPITAL ADMISSION - MEDICATIONS 2 03/03/2025 REASON FOR NOT PRESCRIBING A NTICOAGULATION THERAPY AT DISCHARGE 1 03/03/2025 documented in this encounter Care Teams [id number] Outside Sales Representative Relationship Specialty Start Date End Date Ana María Bryan MD [address] [place] [phone] PCP - General Internal Medicine 02/06/24 documented as of this encounter
[2025-03-10 11:41] VITALS: BP 130/56; PULSE 83; O2SAT 97; BMI 24.8
--- NOTE | 2025-03-10 11:41 | MHC.OFFVIS ---
Vital Signs 03/10/25 11:41 Height 4 ft 8.57 in Weight 112 lb 14.027 oz BMI 24.8 BP 130/56 L Blood Pressure Location Rt brachial Position Sitting Pulse 83 Pulse Source Pulse Oximeter Pulse Oximetry (%) 97 Oxygen Delivery Method Room Air Intake Visit Reasons: f/u osteoporosis Intake Note: atient present today for Osteoporosis follow up. Enrobing Machine Corder Required: Yes Enrobing Machine Corder Language: [employer] Services: Enrobing Machine Corder Present Enrobing Machine Corder Name: [facility] Information Interpreted: non-clinical & clinical Accompanied by: Daughter Allergies diphenhydramine (From Benadryl) Adverse Reaction (Verified 03/10/25 11:42) Anxiety Medication List - Last Reconciled 03/10/25 by Julius Pelletier MD acetaminophen 500 mg PO NEEDED PRN amoxicillin-pot clavulanate 875-125 mg 1 tab PO BID 7 days apixaban (Eliquis) 5 mg PO DAILY ascorbic acid (vitamin C) (Vitamin C) 500 mg PO QAM aspirin 81 mg PO DAILY atorvastatin 80 mg PO BEDTIME blood sugar diagnostic (Soceaniquch Verio test strips) 4 times in day blood-glucose meter (Soceaniquch Verio Flex Meter) As directed blood-glucose sensor (Dexcom G7 Sensor device) Use daily As directed to monitor glucose. change q 10 days cefuroxime axetil 500 mg PO BID 7 days cholecalciferol (vitamin D3) (Vitamin D3) 50 mcg (2 x 25 mcg (1,000 unit)) PO QAM docusate sodium 100 mg PO BID ferrous sulfate 325 mg PO BID fluticasone propionate 50 mcg/actuation 1 - 2 sprays intranasal DAILY PRN gabapentin 100 mg PO DAILY glucose (Dex4 Glucose) 16 grams (4 x 4 gram) PO Q15M PRN insulin glargine (Lantus Solostar U-100 Insulin) 10 units (0.1 mL) subcut QPM insulin lispro (Humalog KwikPen (U-100) Insulin) 2 - 6 units (0.02 - 0.06 mL) subcut TID lancets (Carista AppTouch Delica Plus Lancet) TEST BLOOD SUGAR 4 TIMES A DAY lisinopril 2.5 mg PO QAM melatonin 5 mg PO BEDTIME molnupiravir (Lagevrio) mg PO mupirocin 2% 1 appl topical BID mycophenolate sodium 180 mg PO BID oxycodone 5 mg PO Q6H PRN pantoprazole 40 mg PO DAILY pen needle, diabetic (BD Florencia 2nd Gen Pen Needle) twice a day prednisone 5 mg PO DAILY tacrolimus 3 mg PO BID trazodone 200 mg PO BEDTIME PRN HPI Comments Details: 74 yo female today for fup visit, she was seen for osteoporosis management She is feeling well. She has other PMH of ESRD s/p kidney transplant on 2011, on prednisone 5 mg daily, Sees Dr. Page of nephrology she had GERD, HTN, dyslipidemia. Osteoporosis. She has retinopathy s/p laser last time 1 year ago. Diabetic nephropathy, neuropathy. no Macrovascular disease. Last ophthalmology evaluation: 06/2022 - needs to make appt , she has retinopathy. She has nocturia 1 time only, denies polydipsia, polyuria, + numbness, tingling. denies blurred vision. 10/08/2019 DEXA scan AP SPINE L1-L4: Current: BMD 0.881 g/cm2, Z-score -0.7, T-score -2.5, osteoporosis, 17.2% increase from baseline (<5% change is not significant). Baseline: BMD 0.752 g/cm2. LEFT FEMUR, NECK: Current: BMD 0.650 g/cm2, Z-score -1.0, T-score -2.8, osteoporosis. Baseline: BMD 0.619 g/cm2. LEFT FEMUR, TOTAL: Current: BMD 0.676 g/cm2, Z-score -1.1, T-score -2.6, osteoporosis, 2.3% increase from baseline (<5% change is not significant). Baseline: BMD 0.661 g/cm2. Laboratory Tests 05/15/19 05/15/19 05/20/19 12:00 12:00 09:00 Sodium Potassium Creatinine Estimated GFR Hemoglobin A1c % Calcium AST ALT Alkaline Phosphatase N-Telopeptide X-linked 25-OH Vitamin D Total 54.7 Ur Random Microalbumin Ur 24 Hour Volume 2825 Ur Calcium 24 Hr 31 L Calcium/Creat 24 Hr 37 Bone Specific Alk Phos 6.0 08/13/19 05/28/20 05/28/20 11:20 10:45 10:48 Sodium 139 Potassium 4.7 Creatinine 1.22 Estimated GFR 44 Hemoglobin A1c % Calcium AST 24 ALT 25 Alkaline Phosphatase 50 N-Telopeptide X-linked 8 25-OH Vitamin D Total Ur Random Microalbumin 6.0 Ur 24 Hour Volume Ur Calcium 24 Hr Calcium/Creat 24 Hr Bone Specific Alk Phos 05/28/20 07/22/20 10:48 11:41 Sodium Potassium Creatinine Estimated GFR Hemoglobin A1c % 7.9 Calcium 10.2 AST ALT Alkaline Phosphatase N-Telopeptide X-linked 25-OH Vitamin D Total Ur Random Microalbumin Ur 24 Hour Volume Ur Calcium 24 Hr Calcium/Creat 24 Hr Bone Specific Alk Phos Laboratory Tests 05/15/19 05/20/19 08/13/19 12:00 09:00 11:20 Sodium Potassium Creatinine Estimated GFR Fasting Glucose Hgb A1c Fingerstick Hemoglobin A1c % Calcium AST ALT Albumin N-Telopeptide X-linked 25-OH Vitamin D Total 54.7 Ur Creatinine 24 Hour 0.84 Microalb/Creat Ratio 4.7 12/15/19 05/28/20 05/28/20 10:57 10:45 10:48 Sodium 139 Potassium 4.7 Creatinine 1.22 Estimated GFR 44 Fasting Glucose 184 H Hgb A1c Fingerstick 8.2 Hemoglobin A1c % Calcium 10.1 AST 24 ALT 25 Albumin 4.2 N-Telopeptide X-linked 8 25-OH Vitamin D Total Ur Creatinine 24 Hour Microalb/Creat Ratio 05/28/20 10:48 Sodium Potassium Creatinine Estimated GFR Fasting Glucose Hgb A1c Fingerstick Hemoglobin A1c % 7.9 Calcium AST ALT Albumin N-Telopeptide X-linked 25-OH Vitamin D Total Ur Creatinine 24 Hour Microalb/Creat Ratio on Prolia 60 mg q.6 months. . Tolerating Prolia well. No fx since last visit. . on calcium supplementation [id number] in AM 1300 mg with lunch and 1300 mg in dinner . 24 hour urine calcium was low with elevated PTH in past The patient is a 74-year-old female presenting with follow-up concerns regarding both osteoporosis and type 2 diabetes mellitus. She has experienced hypocalciuria and has been prescribed calcium supplementation using Viactive. The dosing has been variable, with possible inconsistencies in daily intake, leading to concerns about insufficient calcium for optimal bone health. Her osteoporosis management needs to be reassessed, considering the introduced regimen might not be entirely followed. No fx since last visit . 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 Mother No problems noted. Sister Breast cancer Diabetes Maternal Aunt Cancer Maternal Uncle Cancer Social History Household Members: Spouse Alcohol intake: never Patient Tobacco Use Status: Never used Tobacco service: No Current occupational status: retired Gender identity: Female Physical Exam Vital Signs: BMI result Body Mass Index 24.8 Assessment & Plan Assessment & Plan (1) Osteoporosis: Code(s): M81.0 - Age-related osteoporosis without current pathological fracture Category: Medical Plan: Patient has severe osteoporosis as a very high risk for fracture. She has CKD-bone mineral disease. Secondary workup was negative. , 24 hour urine for calcium was low suggesting insufficient calcium intake and secondary hyperparathyroidism component The plan is continue the Prolia. Patient will follow-up with Nephrology for treatment of the CKD-bone mineral disease to be optimized. Patient'sreceived Prolia injection is due December 2024 Will have patient start sugar free calcium citrate in the form of Viactiv 1300 mg in AM and lunch and 1300 mg in PM . Will recheck 24 hour urine for calcium and creatinine to adjust supplementation. Next DEXA 08/2026 Orders: Orders Comprehensive Met. Panel Today M81.0 - Age-related osteoporosis without current pathological fracture Calcium, 24 Hr Ur Today M81.0 - Age-related osteoporosis without current pathological fracture Coding Level of Care Code Est Pt Level 3 (66585) Add On Problem Visit Only Diagnoses Osteoporosis M81.0
--- OUTSIDE RECORDS SUMMARY | 2025-03-10 15:22 | XMS_ITS | Encounter Summary ---
Author Organization [employer] Address [address] [place] [address] Care Team Providers Care Account Support Associate Name Role Phone Ana María Bryan MD Primary Care Provider + Encounter Details Date Type Department Care Team (Latest Contact Info) Description 01/29/2019 Abstract [facility] CONVERSIONS Dental, Provider, DDS Social History Tobacco [...] Care Team ( st Contact Info) Description 04/01/2025 10:15 AM EST Office Visit [facility] MEDICINE [address] [place] [address] Ana María Bryan MD [address] [place] [address] documented as of this encounter Visit Diagnoses Not on filedocumented in this encounter Care Teams Account Support Associate Relationship Specialty Start Date End Date Ana María Bryan MD [address] [place] [address] PCP - General Family Medicine 1/1/19 documented as of this encounter
--- OUTSIDE RECORDS SUMMARY | 2025-03-10 15:22 | XMS_ITS | Clinical Summary ---
Author Organization [employer] Address [address] [facility] [facility] [address] [place] [address] Care Team Providers Care Inoculator Name Role Phone Ana María Bryan MD [...] MEALS DIRECTED Active Lancets (OneTouch Delica Plus [id number]) [facility] [place] BLOOD SUGAR 4 TIMES [...] (800 mg) po bid for 5 days. Norwegian label 40 capsule 024 Active fluticasone (Flonase) 50 MCG/ACT nasal sprayIndications:S easonal allergic rhinitis due to other allergic trigger Use 1-2 sprays in each nostril every day as needed 48 g 025 Active Acetaminophen Extra Strength 500 MG tablet 1 tab po tid prn pain/fever/TRAVIS 60 tablet 2 025 Active OneTouch Ultra Test test stripIndications:T [...] AFTER MEALS 60 tablet 3 025 Active docusate sodium (Colace) 100 MG capsule TAKE 1 CAPSULE BY MOUTH TWICE DAILY NEEDED 180 capsule 1 025 Active FT Stool Softener 50-8.6 MG tabletIndications: Constipation, unspecified constipation type TAKE 2 TABLETS BY MOUTH TODAY THEN 1 TABLET ONCE DAILY 30 tablet 1 025 Active gabapentin (Neurontin) 100 MG capsule TAKE 1 CAPSULE BY MOUTH AT BEDTIME 90 capsule 1 Active pantoprazole (ProtoNix) 40 MG EC tabletIndications: Upper gastrointestinal bleeding TAKE 1 TABLET BY MOUTH TWICE DAILY IN THE MORNING AND IN THE EVENING 180 tablet Active melatonin 5 MG tabletIndications: Primary insomnia TAKE 1 TABLET BY MOUTH AT BEDTIME 90 tablet 02/12/20 25 11:13 AM EST Active melatonin 5 MG tabletIndications: Primary insomnia Take 1 tablet (5 mg) by mouth at bedtime. 90 tablet Active atorvastatin (Lipitor) 80 MG tabletIndications: Hyperlipidemia, unspecified hyperlipidemia type TAKE 1 TABLET BY MOUTH EVERY EVENING 90 tablet 1 Active Ascorbic Acid (vitamin C) 500 MG tabletIndications: Iron deficiency anemia due to chronic blood loss TAKE 1 TABLET BY MOUTH EVERY MORNING 90 tablet 1 Active Pentips Generic Pen [place] 32G X 4 MM misc USE DIRECTED FOUR TIMES DAILY 100 each 11 Active polyethylene glycol, PEG, 3350 (Glycolax) 17 GM/SCOOP powderIndications: Constipation, unspecified constipation type TAKE 17 GM MIXED IN 8 OUNCES OF WATER, COFFEE OR TEA ONCE DAILY 510 g 2 025 Active polyethylene glycol, PEG, 3350 (MiraLax) 17 GM/SCOOP powderIndications: Constipation, unspecified constipation type Mix 1 capful in 8 in 8 oz water and drink daily 527 g 2 02/12/20 25 11:13 AM EST 025 03/05 Discontinued Pentips Generic Pen [place] 32G X 4 MM misc USE FOUR TIMES DAILY 100 each 5 025 02/27 Discontinued atorvastatin (Lipitor) 80 MG tabletIndications: Hyperlipidemia, unspecified hyperlipidemia type TAKE 1 TABLET BY MOUTH EVERY EVENING 90 tablet 1 025 02/24 Discontinued Ascorbic Acid (vitamin C) 500 MG tabletIndications: Iron deficiency anemia due to chronic blood loss TAKE 1 TABLET BY MOUTH EVERY MORNING 90 tablet 1 025 02/24 Discontinued melatonin 5 MG tabletIndications: Primary insomnia TAKE 1 TABLET BY MOUTH AT BEDTIME 90 tablet 025 02/09 Discontinued Active Problems Problem Noted Date Diagnosed Date Toe infection 01/22/2025 Diabetic ulcer of toe of rig ht foot associated with type 2 diabetes mellitus 01/22/2025 Closed fracture of multiple ribs of left [...] vs gastroparesis. r/o PUD. Refer to GI, [facility] does not accept patient's insurance. Will refer to [facility]. Counseled to drink herbal tea prior to [...] colonic polyp 03/24/2022 Overview (08/15/2023): Colonoscopy at [facility] on 03/15/22 (admitted due to rectal [...] at least until august and FU with improvement coordinator. We discussed avoid prolonged rest, ambulation [...] mg daily. Jardiance held at admission. -Monitor [id number] glucose with meals and nightly, and every [...] Continue Lantus 12 units and follow-up with electrical intern, she is off Jardiance due to side effects. Discussed importance of having small and fractioned meals I will follow-up in 3 to 4 months Referral to [facility] ([facility]) She has been referred to splitting machine feeder for toenail trimming Assessment & Plan (08/15/2023 11:55 AM EDT): Controlled. A1c is at goal. Continue on Lantus 10 units she will lower to 8 units only if she has persistent blood sugar below 70. Counseled re more frequent low calorie/carb meals. Check fgstk 3x daily Encouraged physical activity as tolerated. FU in 3 months. F/u with electrical intern Assessment & Plan (10/23/2022 5:09 PM EDT): [...] at goal. -She has follow up with Senior Coldfusion Developer next month. 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 3 weeks Check potassium next [...] Encounters Date Type Department Care Team Description 03/04/2025 Refill [facility] [address] [place], [place] [phone] Kelly Conner NP Constipation, unspecified constipation type 03/02/2025 Orders Only GENERIC EXTERNAL DATA DEPARTMENT Provider, Generic External Data 02/27/2025 Refill [facility] MEDICINE [address] [place], [place] [phone] Ana María Bryan MD 02/23/2025 Refill [facility] [address] [place], [place] [phone] Ana María Bryan MD Hyperlipidemia, unspecified hyperlipidemia type; Iron deficiency anemia due to chronic blood loss 02/09/2025 Refill [facility]IC[facility] [address] [place] [address] Ana María Bryan MD Primary insomnia 02/09/2025 Refill [facility] [address] [place] [address] Ana María Bryan MD Primary insomnia 01/20/2025 Orders Only GENERIC EXTERNAL DATA DEPARTMENT Provider, Generic External Data 01/19/2025 2:00 PM EDT Office Visit [facility] [address] [place] [phone] Candida Benites, MANAGER PACKAGE Diabetic ulcer of toe of right foot associated with type 2 diabetes mellitus, unspecified ulcer stage (HCC) (Primary Dx); Toe infection 01/19/2025 Travel 01/09/2025 Refill [facility] MEDICINE [address] [place] [phone] Ana María Bryan MD Upper gastrointestinal bleeding 12/31/2024 Orders Only GENERIC EXTERNAL DATA DEPARTMENT Provider, Generic External Data 12/29/2024 Refill [facility] [address] [place] [phone] Ana María Bryan MD 12/25/2024 Refill [facility] [address] [place] [phone] eKlly Conner NP Constipation, unspecified constipation type from Last 3 Months Immunizations Immunization Administration [...] Care Team (Late st Contact Info) Description 04/01/2025 10:15 AM EST Office Visit [facility] MEDICINE [address] [place] [address] Ana María Bryan MD [address] [place], [place] [phone] Health Maintenance Due Date Last Done Comments [...] on patient's age to complete this topic Goals Goal Patient Goal Type Associated Problems Recent Progress Patient-Stated? Author Help patients manage their type 2 diabetes Care Plan Help patients manage their type 2 diabetes No Vandana Case PharmD Weekly blood pressure task Care Plan Weekly blood pressure task No Vandana Case PharmD Help patients manage their type 2 diabetes Care Plan Help patients manage their type 2 diabetes No Vandana Case PharmHema Patient has chronic kidney disease Care Plan Patient has chronic kidney disease No Vandana Case PharmD Weekly blood pressure task Care Plan Weekly blood pressure task No Vandana Case PharmD Patient has chronic kidney disease Care Plan Patient has chronic kidney disease No Vandana Case PharmD Procedures Procedure Name Priority Date/Time Associated Diagnosis Comments GLUCOSE, WHOLE BLOOD Routine 03/02/2025 11:01 AM EST COMPREHENSIVE METABOLIC PANEL, FASTING Routine 03/02/2025 10:16 AM EST ALBUMIN, RANDOM URINE W/CREATININE Routine 03/02/2025 10:13 AM EST XR CALCANEUS 2 VIEWS BILATERAL Routine 01/20/2025 3:14 PM EDT XR FOOT 3+ VIEWS RIGHT Routine 3:00 PM EDT SED RATE BY MODIFIED WESTERGREN Routine 01/20/2025 2:10 PM EDT LACTIC ACID Routine 01/20/2025 2:10 PM EDT C-REACTIVE PROTEIN Routine 01/20/2025 2: 10 PM EDT COMPREHENSIVE METABOLIC PANEL Routine 01/20/2025 2:10 PM EDT CBC WITH AUTO DIFFERENTIAL Routine 01/20/2025 2:10 PM EDT BLOOD CULTURE (SECOND) Routine 2:10 PM EDT BLOOD CULTURE (FIRST) Routine 01/20/2025 2:10 PM EDT BASIC METABOLIC PANEL Routine 12/31/2024 12:25 PM EDT AMB REFERRAL TO OPHTHALMOLOGY Routine 11/20/2024 Type 2 diabetes mellitus with stage 3 chronic kidney disease, with long-term current use of insulin, unspecified whether stage 3a or 3b CKD (CMS/HCC) POCT GLYCATED HEMOGLOBIN, TOTAL Routine 10/03/2024 11:19 [...] Maintenance Results * (ABNORMAL) Glucose, Whole Blood (03/02/2025 11:01 AM EST) Glucose, Whole Blood 181(H) 60 - 115 mg/dL [facility] Comment:METER #: [id number] 0Testing performed in the Endocrinology Department [address] , [address], [facility]. 03/02/2025 11:0 1 AM EST 03/02/2025 11:05 AM EST us Generic External Data Provider LAB BLOOD ORDERAB LES Final Result [facility] [address] [place] [phone] [phone] * (ABNORMAL) Comprehensive Metabolic Panel, Fasting (03/02/2025 10:16 AM EST) Sodium 137 135 - 145 mmol/L [facility] Potassium 4.3 3.3 - 5.1 mmol/L [facility] Chloride 106 96 - 108 mmol/L [facility] Carbon Dioxide 25 22 - 29 mmol/L [facility] Anion Gap 10(L) 12 - 20 [facility] Urea Nitrogen (BUN) 28(H) 9 - 16 mg/dL [facility] Creatinine, Serum 0.89 0.5 - 1.4 mg/dL [facility] Estimated Glomerular Filt Rate >60 [facility] Comment:Chronic Kidney Disea se: Estimated GFR < 60 mL/min/[id number] Kidney Disease: Estimated GFR < 15 mL/min/1.73m2 Glucose Fasting 211(H) 60 - 99 mg/dL [facility] Comment:A fasting glucose of 126 mg/dl or greater on more than oneoccasion is considered diagnostic of diabetes. Calcium 9.3 8.4 - 10.2 mg/dL [facility] Bilirubin, Total 0.5 0.0 - 1.0 mg/dL [facility] Aspartate Amino Transferase 20 5 - 31 U/L [facility] Alanine Aminotransferase 11 0 - 31 U/L [facility] Total Protein 7.4 6.5 - 8.0 g/dL [facility] Albumin Level 3.8 3.5 - 5.0 g/dL [facility] Alkaline Phosphatase 61 39 - 117 U/L [facility] 03/02/2025 10:1 6 AM EST 03/02/2025 10:16 AM EST Generic External Data Provider LAB BLOOD ORDERAB LES Final Result Performing Organization Address [facility] de Phone Number [facility] [address] [place] [phone] * (ABNORMAL) Albumin, Random Urine W/Creatinine (03/02/2025 10:13 AM EST) Creatinine, Urine 73.94 mg/dL [facility] Microalbumin Urine 41.0 mg/L [facility] Microalbum Creatinine Ratio Ur 55.4(H) <30 ug/mg cr [facility] Comment:Albumin/Creatinine R atio Reference Ranges: Normal: < 30 ug/mg creatinine Microalbuminuria: 30 - 300 ug/mg creatinineClinical Albuminuria: > 300 ug/mg creatinine 03/02/2025 10:1 3 AM EST 03/02/2025 10:24 AM EST Generic External Data Provider LAB URINE ORDERAB LES Final Result Performing Organization Address [facility] de Phone Number [facility] [address] [place] [phone] * XR Calcaneus 2 Views Bilateral (01/20/2025 3:14 PM EDT) Anatomical Region Laterality Modality Lower Extremities, Calcaneus Bilateral Rad iographic Imaging 01/20/2025 3:14 PM EDT Narrative 01/20/2025 3:47 PM EDT [address] [address] XRay Report Signed Patient: Sofiya Julian MR#: [id number] : 1950 Acct:[id number] Age/Sex: 74 / F ADM Date: 01/20/25 Loc: HO.ED Attending Dr: Ordering Physician: Vasyl Alarcon MD Date of Service: 01/20/25 Procedure(s): XR Calcaneus Chavo min 2V Accession Number(s): [id number] cc: Ana María Bryan MD; Vasyl Alarcon [...] in OV> 01/20/25 1545 DD/ 1514 TD/TT: 01/20/25 151 [employer] And Bever[employer] Assistant Manager: JESSICA Procedure Note Donotuseinterpreter, Image - 01/20/[address] [address] XRay Report Signed Patient: Sofiya Julian [facility]#: [id number] : 1950Acct:[id number] Age/Sex: 74 / FADM Date: 01/20/25 Loc: HO.ED Attending Dr: Ordering Physician: Vasyl Alarcon MD Date of Service: 01/20/25 Procedure(s): XR Calcaneus Chavo min 2V Accession Number(s): [id number] cc: Ana María Bryan MD; Vasyl Alarcon [...] in OV> 01/20/25 1545 DD/ 1514 TD/TT: 01/20/25 1515 Food And Beverage Assistant Manager: JESSICA [facility] External Provider IMG XR PROCEDURES Final Result * XR Foot 3+ Views Right (01/20/2025 3:00 PM EDT) Anatomical Region Laterality Modality Lower Extremities, Foot Right Radiogra phic Imaging 01/20/2025 3:00 PM EDT Narrative 01/20/2025 3:44 PM EDT [address] [address] XRay Report Signed Patient: Sofiya Julian MR#: [id number] : 1950 Acct:[id number] Age/Sex: 74 / F ADM Date: 01/20/25 Loc: HO.ED Attending Dr: Ordering Physician: Eros Palm Date of Service: 01/20/25 Procedure(s): XR foot RT min 3V Accession Number(s): [id number] cc: Eros Palm; Ana María Bryan MD [...] 01/20/25 1541 DD/ 1500 TD/TT: 01/20/25 1512 Food And Beverage Assistant Manager: JESSICA Procedure Note Donotuseinterpreter, Image - 01/20/[address] [address] XRay Report Signed Patient: Sofiya Julian [facility]#: [id number] : 1950Acct:[id number] Age/Sex: 74 / FADM Date: 01/20/25 Loc: HO.ED Attending Dr: Ordering Physician: Eros Palm Date of Service: 01/20/25 Procedure(s): XR foot RT min 3V Accession Number(s): [id number] cc: Eros Palm; Ana María Bryan MD [...] 01/20/25 1541 DD/ 1500 TD/TT: 01/20/25 1512 Food And Beverage Assistant Manager: JESSICA [facility] External Provider IMG XR PROCEDURES Final Result * Blood Culture (First) (01/20/2025 2:10 PM EDT) Blood Venous blood specimen / Unknown 01/20/2025 2:10 PM EDT 01/20/2025 2:19 PM EDT Comment:Blood Narrative [facility] - 01/25/2025 4:19 PM EST Blood Culture (First) No growth after 5 days. Specimen Source: Blood Generic External Data Provider LAB MICROBIOLOGY - GENERAL ORDERABLES Final Result [facility] [address] [place] [phone] * Blood Culture (Second) (01/20/2025 2:10 PM EDT) Blood Venous blood specimen / Unknown 01/20/2025 2:10 PM EDT 01/20/2025 2:19 PM EDT Comment:Blood Narrative [facility] - 01/25/2025 4:19 PM EST Blood Culture (Second) No growth after 5 days. Specimen Source: Blood us Generic External Data Provider LAB MICROBIOLOGY - GENERAL ORDERABLES Final Result [facility] [address] [place], [place] [phone] * (ABNORMAL) CBC auto differential (01/20/2025 2:10 PM EDT) White Blood Count 12.1(H) 4.8 - 10.8 X10*3/uL [facility] Red Blood Count 3.99(L) 4.20 - 5.50 X10*6/uL [facility] Hemoglobin 12.2 12.0 - 16.0 g/dl [facility] Hematocrit 37.8 37.0 - 47.0 % [facility] Mean Corpuscular Volume 94.7 80.0 - 98.0 fL [facility] Mean Corpuscular Hemoglobin 30.6 27.0 - 33.0 pg [facility] Mean Corpuscular HGB Conc 32.3 31.0 - 35.0 g/dl [facility] Red Cell Distribution Width 16.9(H) 11.0 - 16.0 % [facility] Platelet Count 234 160 - 400 X10*3/uL [facility] Mean Platelet Volume 11.9 9.4 - 12.3 fL [facility] Neutrophils Percent Auto 85.6(H) 45 - 73 % [facility] Imm Gran Pct Auto 0.5(H) 0.0 - 0.4 % [facility] Lymphocytes Percent Auto 9.5(L) 20 - 40 % [facility] Monocytes Percent Auto 3.8 2 - 11 % [facility] Eosinophils Percent Auto 0.3 0 - 4 % [facility] Basophils Percent Auto 0.3 0 - 2 % [facility] NRBC Pct Auto 0.0 0.0 - 0.2 /100WBC [facility] Neutrophils Absolute Auto 10.3(H) 2.0 - 8.3 x10*3/uL [facility] Imm Gran Abs Auto 0.06(H) 0.00 - 0.03 X10*3/uL [facility] Lymphocytes Absolute Auto 1.2 1.2 - 4.9 X10*3/uL [facility] Monocytes Absolute Auto 0.5 0.1 - 1.2 X10*3/uL [facility] Eosinophils Absolute Auto 0.0 0.0 - 0.4 X10*3/uL [facility] Basophils Absolute Auto 0.0 0.0 - 0.2 X10*3/uL [facility] NRBC Abs Auto 0.000 0.0 - 0.012 X10*3/uL [facility] 01/20/2025 2:10 PM EDT 01/20/2025 2:19 PM EDT Generic External Data Provider LAB BLOOD ORDERAB LES Final Result Performing Organization Address City/[facility]/ZIP Co de Phone Number [facility] [address] [place] [phone] * Sed Rate by Modified Carmella (01/20/2025 2:10 PM EDT) Erythrocyte Sedimentation Rate 17 0 - 20 MM/HR [facility] Comment:Patients with polycy themia and many hemoglobin abnormalitiesmay have depressed sed rates whereas patients with anemiamay have elevated sed rates. 01/20/2025 2:10 PM EDT 01/20/2025 2:19 PM EDT Generic External Data Provider LAB BLOOD ORDERAB LES Final Result Performing Organization Address City/[facility]/ZIP Co de Phone Number [facility] [address] [place] [phone] * C-reactive Protein (01/20/2025 2:10 PM EDT) Pathologist [facility] C Reactive Protein 0.41 < or = 0.50 mg/dL [facility] 01/20/2025 2:10 PM EDT 01/20/2025 2:19 PM EDT Generic External Data Provider LAB BLOOD ORDERAB LES Final Result Performing Organization Address [facility] Co de Phone Number [facility] [address] [place] [phone] * Lactic Acid (01/20/2025 2:10 PM EDT) Pathologist [facility] Lactic Acid 1.4 0.5 - 2.0 mmol/L [facility] 01/20/2025 2:10 PM EDT 01/20/2025 2:19 PM EDT Generic External Data Provider LAB BLOOD ORDERAB LES Final Result Performing Organization Address [facility] Co de Phone Number [facility] [address] [place] [phone] * (ABNORMAL) Comprehensive Metabolic Panel (01/20/2025 2:10 PM EDT) [facility] Sodium 140 135 - 145 mmol/L [facility] Potassium 4.7 3.3 - 5.1 mmol/L [facility] Chloride 110(H) 96 - 108 mmol/L [facility] Carbon Dioxide 23 22 - 29 mmol/L [facility] Anion Gap 12 12 - 20 [facility] Urea Nitrogen (BUN) 40(H) 9 - 16 mg/dL [facility] Creatinine, Serum 1.08 0.5 - 1.4 mg/dL [facility] Creatinine Clr Calc Pharmacy 30.7 [facility] Comment:Provided height and weight: 144.78 cm,50.349 kg.eGFR (calculated from the MDRD study equation) and eCrCl(calculated from the Cockcroft-Gault equation) are based ondifferent parameters and may not yield comparable results.If eCrCl result is absurd, please check patient'sheight/weight. Estimated Glomerular Filt Rate 49 [facility] Comment:Chronic Kidney Disea se: Estimated GFR < 60 mL/min/1.15p6Micgrd Kidney Disease: Estimated GFR < 15 mL/min/1.73m2 Glucose 137(H) 60 - 115 mg/dL [facility] Calcium 9.3 8.4 - 10.2 mg/dL [facility] Bilirubin, Total 0.5 0.0 - 1.0 mg/dL [facility] Aspartate Amino Transferase 32(H) 5 - 31 U/L [facility] Alanine Aminotransferase 24 0 - 31 U/L [facility] Total Protein 7.5 6.5 - 8.0 g/dL [facility] Albumin Level 4.1 3.5 - 5.0 g/dL [facility] Alkaline Phosphatase 56 39 - 117 U/L [facility] 01/20/2025 2:10 PM EDT 01/20/2025 2:19 PM EDT us Generic External Data Provider LAB BLOOD ORDERAB LES Final Result [facility] [address] [place] [phone] * (ABNORMAL) Basic Metabolic Panel (12/31/2024 12:25 PM EDT) Sodium 140 135 - 145 mmol/L [facility] Potassium 4.6 3.3 - 5.1 mmol/L [facility] Chloride 105 96 - 108 mmol/L [facility] Carbon Dioxide 29 22 - 29 mmol/L [facility] Anion Gap 11(L) 12 - 20 [facility] Urea Nitrogen (BUN) 30(H) 9 - 16 mg/dL [facility] Creatinine, Serum 0.89 0.5 - 1.4 mg/dL [facility] Estimated Glomerular Filt Rate >60 [facility] Comment:Chronic Kidney Disea se: Estimated GFR < 60 mL/min/1.45q2Joxwfj Kidney Disease: Estimated GFR < 15 mL/min/1.73m2 Glucose 218(H) 60 - 115 mg/dL [facility] Calcium 9.5 8.4 - 10.2 mg/dL [facility] 12/31/2024 12:2 5 PM EDT 12/31/2024 12:25 PM EDT us Generic External Data Provider LAB BLOOD ORDERAB LES Final Result [facility] [address] [place] [phone] * (ABNORMAL) POCT HGB A1C (10/03/2024 11:19 AM EDT) Hemoglobin A1C 8.0(A) 4.0 - 5.7 % QC Media Lot # [id number] Lot# Expiration Date Blood 10/03/2024 11:1 9 AM EDT us Ana María Bryan MD POINT OF CARE TEST ENTER /EDIT ORDERABLES Final Result * Lipid Panel with Reflex to Direct LDL (01/01/2024 10:37 AM EDT) Triglycerides 97 <150 mg/dL [facility] [facility] Comment:Desirable Triglyceri de: less than 150 mg/dLBorderline High Triglyceride 150-199 mg/dLHigh Triglyceride: 200-499 mg/dLVery High Triglyceride: greater than or equal to 5OO mg/dL Cholesterol 138 <200 mg/dL [facility] Comment:Desirable Cholestero l: less than 200 mg/dLBorderline High Cholesterol: 200-239 mg/dLHigh Cholesterol: greater than 239 mg/dL LDL Cholesterol Calculated 61 <100 mg/dL [facility] Comment:Desirable LDL: less than 100 mg/dLNear [...] MD LAB BLOOD ORDERABLES Fin al Result [facility] [address] [place] [phone] * Hm Colonoscopy (03/15/2022) Colonoscopy Normal Normal us Ana María Bryan MD HEALTH MAINTENANCE Final Result from Last 3 Months or Most Recently Relevant to Health Maintenance Additional Health Concerns Active Problems Noted Date Diagnosed Date Help patients manage their type 2 diabetes 02/09 Weekly blood pressure task 02/09/2025 Help patients manage their type 2 diabetes 02/09 Patient has chronic kidney disease 02/09/2025 Weekly blood pressure task 02/09/2025 Patient has chronic kidney disease 02/09/2025 Insurance [facility] C3 Member Subscriber Plan / Payer (Ef fective 2022-Present) Name:Sofiya Julian Relation to Subscriber:Self Name:Sofiya Julian Payer ID:Not on file Group ID:Not on file Type:Medicaid Address: [facility] [id number] [place] [phone] [place] [address] Care Teams Inoculator Relationship Specialty Start Date End Date Ana María Bryan MD [address] [place] [phone] PCP - General Family Medicine 03/26/18
--- OUTSIDE RECORDS SUMMARY | 2025-03-10 15:22 | XMS_ITS | Encounter Summary ---
Author Organization [facility] Address [address] [place] [address] Care Team Providers Care Clinical Support Manager Name Role Phone Ana María Bryan MD Primary Care Provider + [phone] Reason for Visit * Reason Onset Date Comments Medication 03/06/2025 Encounter Details Date Type Department Care Team ([facility] st Contact Info) Description 03/06/2025 Telephone Vascular Surgery - [place] [address] [place] [address] Regina Dewitt PA [address] [place] [address] Social History Tobacco Use Types Packs/Day Years [...] on file documented as of this encounter Ordered Prescriptions Prescription Sig Dispense Quantity Refills Last Filled Start Date End Date clopidogreL (PLAVIX) 75 mg tablet Take 1 tablet (75 mg total) by mouth 1 (one) time each day. 30 each 03/06/2025 03/06/2026 documented in this encounter Progress Notes * Dewayne Rdz MA - 03/06/2025 11:34 AM EST Rx sent * Vijay Kaiser - 03/06/2025 11:04 AM EST Patient and pharmacy never received a script for plavix upon discharge from the hospital. The pharmacy only received the aspirin script. According to Liliana Reddy note: Please take plavix (clopidogrel) in addition to aspirin for the next 30 days. After 30 days, stop plavix and continue aspirin. Please send to the [facility] pharmacy on file. documented in this encounter Plan of Treatment Upcoming Encounters Date Type Department Care Team (Late st Contact Info) Description 03/20/2025 1:00 PM EST Office Visit Vascular Surgery - [place] [address] [facility] [address] [place] [address] Nando Botello MD [address] [place] [phone] documented as of this encounter Visit Diagnoses Not on filedocumented in this encounter Care Teams Clinical Support Manager Relationship Specialty Start Date End Date Ana María Bryan MD [address] [place] [phone] PCP - General Internal Medicine 02/06/24 documented as of this encounter
--- OUTSIDE RECORDS SUMMARY | 2025-03-10 15:22 | XMS_ITS | Clinical Summary ---
Author Organization [address] [facility] Address [address] [place] [address] Phone Care Team Providers Care Relay Tester Name Role Phone Ana María Bryan MD Primary Care Provider + [phone] Allergies Active Allergy Reactions Criticality Noted Date Comments Diphenhydramine Other,Unknown 08/18/2016 Other reaction(s): Other (see comments) Other reaction(s): Other (see comments) feeling of panic feeling of panic Medications ascorbic acid (VITAMIN C) 500 mg tablet Take 1 tablet (500 mg total) by mouth 1 (one) time each day in the morning. 02/14/20 24 Active melatonin 5 mg tablet Take 1 tablet (5 mg total) by mouth at bedtime. 04/23/19 25 Active lisinopriL (PRINIVIL,ZEST RIL) 2.5 mg tablet Take 2 tablets (5 mg total) by mouth 1 (one) time each day. Active insulin lispro 100 unit/mL injection Inject 6 Units under the skin. Active Lantus Solostar U-100 Insulin 100 unit/mL (3 mL) injection pen 12 units in the morning or 6 units BID due to low blood sugars at night 03/21/20 24 Active gabapentin (NEURONTIN) 100 mg capsule Take 1 capsule (100 mg total) by mouth. at bedtime Active fluticasone propionate (FLONASE) 50 mcg/actuation nasal spray Administer 1 spray into affected nostril(s). Active ferrous sulfate 325 mg (65 mg iron) EC tablet TAKE 1 TABLET BY MOUTH TWICE DAILY IN THE MORNING AND IN THE EVENING Active docusate sodium (COLACE) 100 mg capsule Take 1 capsule (100 mg total) by mouth 2 (two) times a day if needed for constipation. Active diclofenac (VOLTAREN) 1 % topical gel APPLY 2 GRAM TOPICALLY TO AFFECTED AREA(S) (tacn) 4 TIMES A DAY IN THE MORNING, AT NOON, IN THE EVENING, AND AT BEDTIME FOR UP TO 10 DAYS 01/10/20 24 Active denosumab (Prolia) 60 mg/mL syringe syringe inject 1 milliliter by subcutaneous route every 6 months in the upper arm, upper thigh or abdomen Active Vitamin D3 25 mcg (1,000 unit) capsule Take 2 capsules (2,000 Units total) by mouth 1 (one) time each day in the morning. 04/25/19 25 Active OneTouch Ultra Test test strip 4 (four) times a day. 04/25/19 25 Active aspirin 81 mg EC tablet Take 1 tablet (81 mg total) by mouth 1 (one) time each day. 02/24/20 25 Active tacrolimus (PROGRAF) 1 mg capsule TAKE 3 CAPSULES BY MOUTH EVERY DAY IN THE MORNING and TAKE 2 CAPSULES BY MOUTH EVERY DAY IN THE EVENING Active amLODIPine (NORVASC) 2.5 mg tablet Take 1 tablet (2.5 mg total) by mouth at bedtime. at bedtime. Active atorvastatin (LIPITOR) 80 mg tablet Take 1 tablet (80 mg total) by mouth at bedtime. Active mycophenolate (MYFORTIC) 180 mg EC tablet Take 1 tablet (180 mg total) by mouth 2 (two) times a day. Active pantoprazole (PROTONIX) 40 mg EC tablet Take 1 tablet (40 mg total) by mouth 2 (two) times daily before breakfast and lunch. Do not crush, chew, or split. Active polyethylene glycol (MIRALAX) 17 gram packet Take 17 g by mouth 1 (one) time each day if needed for constipation. Active predniSONE (DELTASONE) 5 mg tablet Take 1 tablet (5 mg total) by mouth 1 (one) time each day. Active traMADoL (ULTRAM) 50 mg tablet Take 1 tablet (50 mg total) by mouth every 6 (six) hours if needed for severe pain. Max Daily Amount: 200 mg Active traZODone (DESYREL) 100 mg tablet Take 1-2 tablets (100-200 mg total) by mouth at bedtime. Active clopidogreL (PLAVIX) 75 mg tablet Take 1 tablet (75 mg total) by mouth 1 (one) time each day. 30 each 03/06/20 25 026 Active Jardiance 25 mg tablet Take 1 tablet (25 mg total) by mouth 1 (one) time each day in the morning. 025 Discontinued doxycycline hyclate (VIBRA-TABS) 100 mg tablet TAKE 1 TABLET BY MOUTH TWICE DAILY FOR 7 DAYS WITH A FULL GLASS OF WATER. Do not lie down for 30 minutes after taking. 09/14/19 24 025 Discontinued cephalexin (KEFLEX) 500 mg capsule Take 1 capsule (500 mg total) by mouth 2 (two) times a day. for 7 days 09/14/19 025 Discontinued traMADoL (ULTRAM) 50 mg tablet Take 1 tablet (50 mg total) by mouth every 6 (six) hours if needed (Moderate to severe pain) for up to 7 days. Max Daily Amount: 200 mg 28 tablet 02/17/20 25 025 Active Problems Problem Noted Date Diagnosed Date Critical limb ischemia of right lower extremity 02/23/2025 COVID-19 12/04/2023 Postprandial abdominal pain in [...] vein of right upper extremity 03/24/2022 Overview (07/21/2024): On Eliquis 5mg bid. [...] square meter and albuminuria creatinine ratio bet* 03/17/2022 Chronic kidney disease (CKD) stage G3a/A2, moderately decreased glomerular filtration rate (GFR) between 45-59 mL/min/1.73 square meter and albuminuria creatinine ratio bet* 03/17/2022 Overview (07/21/2024): Last Assessment & Plan: History of renal transplant Creatinine is at baseline, avoid nephrotoxic medications, BUN is slightly elevated Continue patient's tacrolimus and prednisone Mycophenolate was not listed last admission but patient and her family tell me she is taking this twice a day, this has been added to her med list and ordered Stage 3 chronic kidney disease 03/17/2022 Overview (07/21/2024): Last Assessment & Plan: [...] pain 03/17/2022 Gastrointestinal hemorrhage 03/17/2022 Diabetes mellitus 03/13/2022 Overview (07/21/2024): Last Assessment & Plan: Patient normally takes a home regimen with combination oral agents and insulin. At home uses Humalog 3 times daily, 6 units before meals. Also takes Lantus at bedtime 8 units. In addition she takes Jardiance 25 mg daily. Jardiance held at admission. -Monitor [id number] glucose with meals and nightly, and every [...] tolerated. FU in 3 months. 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 05/11/2020 Essential hypertension 05/11/2020 History of kidney transplant 05/11/2020 Overview (07/21/2024): Last Assessment & Plan: Patient takes tacrolimus and mycophenolate, confirm these doses with me and these meds will continue She also states that she was put on Plavix at the time of her transplant, she states she has never had an IL/stents or stroke and has never had any [...] Encounters Date Type Department Care Team Description 03/06/2025 Telephone Vascular Surgery - [place] [address] [place] [address] Regina Dewitt PA 03/03/2025 1:30 PM EST - 03/03/2025 2:[address] [facility] [address] [place] [address] Nando Botello MD Angiography lower ext right [[id number] (CPT )] 03/03/2025 12:04 PM EST - 03/04/2025 7:04 PM EST Hospital Encounter [facility] [address] [place] [address] Nando Botello MD Jones, Christopher, MD Alam, Aroosa, MD Critical limb ischemia of right lower extremity ([facility] V24, [facility] V28) Discharge Disposition: Home or Self Care 02/23/2025 1:00 PM EST Consult Vascular Surgery - [place] [address] [place] [phone] Kerry Bustos PA Critical limb ischemia of right lower extremity ([facility] V24, [facility] V28) (Primary Dx) 02/16/2025 11:00 AM EST Office Visit Orthopedic Surgery [facility] [address] [phone] Chris Urrutia DPM Controlled type 2 diabetes with neuropathy ([facility] V24, [facility] V28) (Primary Dx); Gangrene of toe of right foot (CMS/[facility] V24, CMS/[facility] V28); Hammertoes of both feet; Arthritis of both feet from Last 3 Months Surgical History Surgery Date Site/Laterality Comments TRANSPLANTATION RENAL ORIF ANKLE FRACTURE SECTION TONSILLECTOMY DIALYSIS FISTULA CREATION Left Medical History Medical History Date Comments CKD (chronic kidney disease) Kidney transplanted Diabetes mellitus (CMS/[facility] V24, CMS/[facility] V28) Neuropathy Hypertension Hyperlipidemia Insomnia Family History Medical History Relation Name Comments Colon cancer Other Breast cancer Sister Relation Name Status Comments Other Sister Social History Tobacco Use Types Packs/Day [...] Mass Index 23.8 03/03/2025 12:52 PM EST Plan of Treatment Upcoming Encounters Date Type Department Care Team (Late st Contact Info) Description 03/20/2025 1:00 PM EST Office Visit Vascular Surgery - [place] [address] [facility] [address] [place] [phone] Nando Botello MD [address] [place] [phone] Health Maintenance Due Date Last Done Comments Colorectal Cancer Screening: Colonoscopy 1950 Diabetes: Annual Foot Exam 06/28/1959 Diabetes: Annual Retina Eye Exam 06/28/1959 Hepatitis B Vaccines (2 of 3 - 19+ 3-dose series) 05/02/2022 04/04/2022 Cholesterol Screening (Lipid Panel) 02/06/2024 Hepatitis C Screening 02/06/2024 Medicare Annual Wellness Visit 02/06/2024 Osteoporosis Screening (Bone Density Screening) 02/06/2024 Social Influencers of Health Screening 02/06/2024 Depression Screening 03/26/2024 RSV Immunization Adult Patients (1 - 1-dose 75+ series) 2024 COVID-19 Vaccine ( season) 2024 12/29/2022, 01/03/2022, 07/07/2021, Additional history exists Influenza Vaccine (#1) 2024 , 12/23/2021, 01/28/2021, Additional history exists Diabetes: Blood Sugar Control Test (HGBA1C) 04/05/2025 10/03/2024, 04/02/2024, 05/31/2022 Diabetes: Annual Urine Albumin-Creatinine Ratio (uACR) 12/31/2025 12/31/2024 Diabetes: Annual GFR (Glomerular Filtration Rate) 03/04/2026 03/04/2025, 03/04/2025, 03/04/2025, Additional history exists Falls Risk Assessment 03/04/2026 03/04/2025 Hypertension/CHF/CAD Annual BMP Blood Test 03/04/2026 03/04/2025, 03/04/2025, 03/04/2025, Additional history exists DTaP,Tdap,and Td Vaccines (2 - Td or [...] BLOOD Routine 03/04/2025 11 :20 AM EST LAVENDER - EDTA Routine 03/04/2025 10:36 AM EST EXTRA TUBES Routine 03/04/2025 10:36 AM EST CREATININE, SERUM [...] METABOLIC PANEL Routine 03/03/2025 1:11 PM EST from Last 3 Months Results * (ABNORMAL) POCT Glucose, blood (03/04/2025 3:14 PM EST) Only the most recent of4 resultswithin the time period is included. Glucose POCT 286(H) 70 - 100 mg/dL 03/04/2025 3:16 PM EST [facility] Blood Capillary blood specimen / Unknown 03/04/2025 3:14 PM EST 03/04/2025 3:16 PM EST Ko Banerjee MD LAB POINT OF CARE TE ST DOCKED DEVICE UNSOLICITED RESULTS Final Result [facility] [address] [place] [address], [place] [phone] * (ABNORMAL) Creatinine serum (03/04/2025 1:32 PM EST) Only the most recent of2 resultswithin the time period is included. Creatinine 1.39(H) 0.50 - 1.10 mg/dL 03/04/2025 3:47 PM EST [facility] eGFR 40(L) >=60 mL/min/1. 73m2 03/04/2025 3:47 PM EST [facility] Comment:Calculation based on the Chronic Kidney Disease Epidemiology Collaboration (CKD-EPI) equation refit without adjustment for race. Blood Venous blood specimen / Unknown Venipuncture / Unknown 03/04/2025 1:32 PM EST 03/04/2025 1:49 PM EST Regina BUITRAGO LAB BLOOD ORDERABLES Final Res ult Performing Organization Address City/[facility]/ZIP Co de Phone Number [facility] [address] [place] [address], [place] [phone] * Lavender tube (03/04/2025 10:36 AM EST) Pathologist [facility] Extra Tube Hold for add-ons. 03/04/2025 12:03 PM EST [facility] Comment:Auto resulted. Blood Venous blood specimen / Unknown Venipuncture / Unknown 03/04/2025 10:36 AM EST 03/04/2025 10:42 AM EST Ko Banerjee MD LAB BLOOD ORDERABLES Final Resul t Performing Organization Address [facility] Co de Phone Number [facility] [address] [place] [address], [place] [phone] * (ABNORMAL) CBC auto differential (03/04/2025 5:49 AM EST) Only the most recent of2 resultswithin the time period is included. [facility] WBC 12.1(H) 4.8 - 10.8 K/mcL LAB HEMETOLOGY METHOD 03/04/2025 6:48 AM [facility] RBC 3.80 3.80 - 4.80 M/mcL LAB HEMETOLOGY METHOD 03/04/2025 6:48 AM [facility] Hemoglobin 11.5 11.5 - 16.0 g/dL LAB HEMETOLOGY METHOD 03/04/2025 6:48 AM [facility] Hematocrit 35.7 35.0 - 47.0 % LAB HEMETOLOGY METHOD 03/04/2025 6:48 AM [facility] MCV 93.7 79.0 - 98.0 FL LAB HEMETOLOGY METHOD 03/04/2025 6:48 AM [facility] MCH 30.2 27.0 - 32.0 pcg LAB HEMETOLOGY METHOD 03/04/2025 6:48 AM [facility] MCHC 32.2 32.0 - 37.0 g/dL LAB HEMETOLOGY METHOD 03/04/2025 6:48 AM [facility] RDW 15.9(H) 11.0 - 15.0 % LAB HEMETOLOGY METHOD 03/04/2025 6:48 AM [facility] Platelets 331 130 - 400 K/mcL LAB HEMETOLOGY METHOD 03/04/2025 6:48 AM [facility] MPV 11.7(H) 7.0 - 11.0 FL LAB HEMETOLOGY METHOD 03/04/2025 6:48 AM [facility] NRBC 0.0 <1.0 % LAB HEMETOLOGY METHOD 03/04/2025 6:48 AM [facility] NRBC Absolute 0.00 <0.10 K/mcL LAB HEMETOLOGY METHOD 03/04/2025 6:48 AM [facility] Neutrophils Relative 68.4 % LAB HEMETOLOGY METHOD 03/04/2025 6:48 AM [facility] Lymphocytes Relative 18.9 % LAB HEMETOLOGY METHOD 03/04/2025 6:48 AM [facility] Monocytes Relative 11.5 % LAB HEMETOLOGY METHOD 03/04/2025 6:48 AM [facility] Eosinophils Relative 0.7 % LAB HEMETOLOGY METHOD 03/04/2025 6:48 AM [facility] Basophils Relative 0.2 % LAB HEMETOLOGY METHOD 03/04/2025 6:48 AM [facility] Immature Granulocytes Relative 0.3 % LAB HEMETOLOGY METHOD 03/04/2025 6:48 AM [facility] Neutrophils Absolute 8.30(H) 1.50 - 7.00 K/mcL LAB HEMETOLOGY METHOD 03/04/2025 6:48 AM EST [facility] Lymphocytes Absolute 2.29 1.00 - 5.00 K/[facility] LAB HEMETOLOGY METHOD 03/04/2025 6:48 AM EST [facility] Monocytes Absolute 1.39(H) 0.20 - 1.00 K/[facility] HEMETOLOGY METHOD 03/04/2025 6:48 AM EST [facility] Eosinophils Absolute 0.08 0.00 - 0.50 K/[facility] HEMETOLOGY METHOD 03/04/2025 6:48 AM EST [facility] Basophils Absolute 0.03 0.00 - 0.20 K/[facility] HEMETOLOGY METHOD 03/04/2025 6:48 AM [facility] Immature Granulocytes Absolute 0.04(H) 0.00 - 0.03 K/[facility] HEMETOLOGY METHOD 03/04/2025 6:48 AM [facility] Blood Venous blood specimen / Unknown Venipuncture / Unknown 03/04/2025 5:49 AM EST 03/04/2025 6:21 AM EST us Vijay Brown MD LAB BLOOD ORDERABLES Final Result [facility] [address] [place] [address], * (ABNORMAL) Basic metabolic panel (03/04/2025 5:49 AM EST) Only the most recent of2 resultswithin the time period is included. Sodium 140 133 - 145 mmol/L 03/04/2025 7:44 AM [facility] Potassium 4.8 3.5 - 5.5 mmol/L 03/04/2025 7:44 AM [facility] Chloride 104 96 - 110 mmol/L 03/04/2025 7:44 AM [facility] CO2 26 21 - 32 mmol/L 03/04/2025 7:44 AM [facility] Anion Gap 10 3 - 11 03/04/2025 7:44 AM [facility] Glucose 140(H) 70 - 100 mg/dL 03/04/2025 7:44 AM [facility] BUN 31(H) 5 - 25 mg/dL 03/04/2025 7:44 AM [facility] Creatinine 1.38(H) 0.50 - 1.10 mg/dL 03/04/2025 7:44 AM [facility] eGFR 40(L) >=60 mL/min/1. 73m2 03/04/2025 7:44 AM [facility] Comment:Calculation based on the Chronic Kidney Disease Epidemiology Collaboration (CKD-EPI) equation refit without adjustment for race. BUN/Creatinine Ratio 22.5 03/04/2025 7:44 AM [facility] Calcium 9.5 8.5 - 10.5 mg/dL 03/04/2025 7:44 AM [facility] Blood Venous blood specimen / Unknown Venipuncture / Unknown 03/04/2025 5:49 AM EST 03/04/2025 6:20 AM EST us Vijay Brown MD LAB BLOOD ORDERABLES Final Result [facility] [address] [place] [address], * (ABNORMAL) POCT activated clotting time,kaolin (03/03/2025 4:17 PM EST) Only the most recent of3 resultswithin the time period is included. Activated Clotting Time Kaolin 189(H) 74 - 137 sec 03/03/2025 4:46 PM [facility] Blood Arterial blood specimen / Unknown 03/03/2025 4:17 PM EST 03/03/2025 4:48 PM EST us Nando Botello MD LAB POINT OF CARE TE ST DOCKED DEVICE UNSOLICITED RESULTS Final Result Performing Organization Address [facility] Co de Phone Number [facility] [address] [place] [address], [place] [phone] * ANGIOGRAPHY LOWER EXT RIGHT (03/03/2025 2:59 PM EST) Anatomical Region Laterality Modality X-Ray Angiograph y Narrative 03/04/2025 6:49 AM EST Per op note Study Details 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 Clinical Background Per H&P Procedure Details Per op note us Kerry BUITRAGO CV INVASIVE VASCULAR PROCEDUR ES Final Result * Activated partial thromboplastin time (03/03/2025 1:11 PM EST) aPTT 30.1 24.1 - 39.3 sec LAB COAGULATION METHOD 03/03/2025 1:42 PM EST [facility] Blood Venous blood specimen / Unknown Venipuncture / Unknown 03/03/2025 1:11 PM EST 03/03/2025 1:30 PM EST us Kerry BUITRAGO LAB BLOOD ORDERABLES Final Re sult Performing Organization Address [facility]/ZIP Co de Phone Number [facility] [address] [place] [address], [place] [phone] * Prothrombin time with INR (03/03/2025 1:11 PM EST) Protime 12.8 10.6 - 13.9 sec LAB COAGULATION METHOD 03/03/2025 1:42 PM EST [facility] INR 1.0 LAB COAGULATION METHOD 03/03/2025 1:42 PM EST [facility] Blood Venous blood specimen / Unknown Venipuncture / Unknown 03/03/2025 1:11 PM EST 03/03/2025 1:30 PM EST us Kerry BUITRAGO LAB BLOOD ORDERABLES Final Re sult [facility] [address] [place] [address], from Last 3 Months Insurance [employer] Advance Directives * Full Code - Default (Latest Code Status on File) Date Activated Date Inactivated Comments 03/03/2025 12:54 PM 03/04/2025 9:04 PM This is or paula is used when code status has not been discussed with the patient, or code status is otherwise unknown/unconfirmed To update the patient's code status, place a code status order. Do not modify or discontinue any currently active code status orders. Care Teams Relay Tester Relationship Specialty Start Date End Date Ana María Bryan MD [address] [place] [phone] PCP - General Internal Medicine 02/06/24
--- OUTSIDE RECORDS SUMMARY | 2025-03-10 15:22 | XMS_ITS | Clinical Summary ---
Author Organization [facility] Address [address] [place] [address] Care Team Providers Care Stripping And Booking Machine Operator Name Role Phone Pcp, No Primary [...] Influenza Vaccine 10/24/2024 COVID-19 Vaccine ( - 2024-2 6 season) 2024 Hepatitis B Vaccines Aged Out No long er eligible based on patient's age to complete this topic Insurance [facility] MEDICARE MEDICAID OUT OF STATE [facility] Care Teams Stripping And Booking Machine Operator Relationship Specialty Start Date End Date Pcp, No [address] [place] [address] PCP - General 12/17/19
--- OUTSIDE RECORDS SUMMARY | 2025-03-10 15:22 | XMS_ITS | Encounter Summary ---
Author Organization [employer] Address [address] [facility] [address] [place] [address] Care Team Providers Care Cord Cutter Name Role Phone Ana María Bryan MD Primary Care Provider + Encounter Details Date Type Department Care Team (Latest Contact Info) Description 05/25/2021 Abstract [facility] CONVERSIONS Dental, Provider, DDS Social History Tobacco [...] Description 04/01/2025 10:15 AM EST Office Visit [facility] MEDIC[facility] [address] [place] [address] Ana María Bryan MD [address] [place] [address] documented as of this encounter Visit Diagnoses Not on filedocumented in this encounter Care Teams Cord Cutter Relationship Specialty Start Date End Date Ana María Bryan MD [address] [place] [address] PCP - General Family Medicine 03/26/18 documented as of this encounter
--- OUTSIDE RECORDS SUMMARY | 2025-03-10 15:22 | XMS_ITS | Encounter Summary ---
Author Organization [employer] Address [address] [facility] [address] [place] [address] Care Team Providers Care Channel Opener Outsoles Name Role Phone Ana María Bryan MD Primary Care Provider + Encounter Details Date Type Department Care Team (Late st Contact Info) Description 05/11/2022 Orders Only [facility] [address] [place] [address] Vandana Ledesma DO [address] [place] [address] Social History Tobacco Use Types Packs/Day Years [...] Description 04/01/2025 10:15 AM EST Office Visit [facility] [address] [place] [address] Ana María Bryan MD [address] [place] [address] documented as of this encounter Visit Diagnoses Not on filedocumented in this encounter Additional Health Concerns Assessment Noted Time PHQ-9 Depression Total Score: 1 04/13/19 23 10:26 AM EST documented as of this encounter Care Teams Channel Opener Outsoles Relationship Specialty Start Date End Date Ana María Bryan MD [address] [place] [address] PCP - General Family Medicine 03/26/18 documented as of this encounter
--- OUTSIDE RECORDS SUMMARY | 2025-03-10 15:22 | XMS_ITS | Encounter Summary ---
Author Organization [employer] Address 75 [facility] 7t [place] [address] Care Team Providers Care Dry Wall Applicator Name Role Phone Ana María Bryan MD Primary Care Provider + Encounter Details Date Type Department Care Team (Late st Contact Info) Description 05/08/2022 [facility] [employer] Information Management [address] [place] [address] Ana María Bryan MD [address] [place] [address] Social History Tobacco Use Types Packs/Day Years [...] Description 04/01/2025 10:15 AM EST Office Visit [facility] [address] [place] [address] Ana María Bryan MD [address] [place] [address] documented as of this encounter Visit Diagnoses Not on filedocumented in this encounter Additional Health Concerns Assessment Noted Time PHQ-9 Depression Total Score: 1 04/13/19 23 10:26 AM EST documented as of this encounter Care Teams Dry Wall Applicator Relationship Specialty Start Date End Date Ana María Bryan MD [address] [place] [phone] PCP - General Family Medicine 03/26/18 documented as of this encounter
--- OUTSIDE RECORDS SUMMARY | 2025-03-10 15:22 | XMS_ITS | Encounter Summary ---
Author Organization [employer] Address [address] [facility] 7t [place] [address] Care Team Providers Care Culled Fruit Packer Name Role Phone Ana María Bryan MD Primary Care Provider + Reason for Visit * Reason Comments Med Refill Encounter Details Date Type Department Care Team (Late st Contact Info) Description 11/18/2023 Refill [facility] [address] [place] [address] Ana María Bryan MD [address] [place], [place] [phone] Acute deep vein thrombosis (DVT) of proximal [...] Description 04/01/2025 10:15 AM EST Office Visit [facility] [address] [place] [address] Ana María Bryan MD [address] [place] [address] documented as of this encounter Visit Diagnoses Diagnosis Acute deep vein thrombosis (DVT) of proximal vein of right lower extremity (HCC) documented in this encounter Additional Health Concerns Assessment Noted Time PHQ-9 Depression Total Score: 1 04/13/19 23 10:26 AM EST documented as of this encounter Care Teams Culled Fruit Packer Relationship Specialty Start Date End Date Ana María Bryan MD [address] [place] [address] PCP - General Family Medicine 03/26/18 documented as of this encounter
--- OUTSIDE RECORDS SUMMARY | 2025-03-10 15:22 | XMS_ITS | Encounter Summary ---
Author Organization [employer] Address 75 [facility] 7t [place] [address] Care Team Providers Care Mat Man Name Role Phone Ana María Bryan MD Primary Care Provider + Reason for Visit * Reason Comments Med Refill Encounter Details Date Type Department Care Team ([facility] st Contact Info) Description 10/29/2023 Refill [facility] [address] [place] [address] Ana María Bryan MD [address] [place] [address] Primary insomnia Social History Tobacco Use Types [...] Description 04/01/2025 10:15 AM EST Office Visit [facility] MEDICINE [address] [place] [phone] Ana María Bryan MD [address] [place] [phone] documented as of this encounter Visit Diagnoses Diagnosis Primary insomnia Persistent disorder of initiating or maintaining sleep documented in this encounter Additional Health Concerns Assessment Noted Time PHQ-9 Depression Total Score: 1 04/13/19 23 10:26 AM EST documented as of this encounter Care Teams Mat Man Relationship Specialty Start Date End Date Ana María Bryan MD [address] [place] [phone] PCP - General Family Medicine 03/26/18 documented as of this encounter
--- OUTSIDE RECORDS SUMMARY | 2025-03-10 15:22 | XMS_ITS | Encounter Summary ---
Author Organization [employer] Address 75 [facility] 7t [place] [address] Care Team Providers Care Bookbinder Chief Name Role Phone Ana María Bryan MD Primary Care Provider + Encounter Details Date Type Department Care Team (Late st Contact Info) Description 03/17/[address] [facility] MEDICINE [address] [place] [phone] Dary Nuno MD [address] [place] [address] [phone] Acute deep vein thrombosis (DVT) of proximal [...] Description 04/01/2025 10:15 AM EST Office Visit [facility] [address] [place] [address] [phone] Ana María Bryan MD [address] [place], [place] [phone] documented as of this encounter Visit Diagnoses Diagnosis Acute deep vein thrombosis (DVT) of proximal vein of right lower extremity (HCC)- Primary documented in this encounter Care Teams Bookbinder Chief Relationship Specialty Start Date End Date Ana María Bryan MD [address] [place] [phone] PCP - General Family Medicine 03/26/18 documented as of this encounter
--- OUTSIDE RECORDS SUMMARY | 2025-03-10 15:23 | XMS_ITS | Encounter Summary ---
Author Organization [facility] Address [address] [facility] [address] [place] [phone] Phone Care Team Providers Care Professor Of Mechanical Engineering Name Role Phone Ana María Bryan MD Primary Care Provider + Encounter Details Date Type Department Care Team (Late st Contact Info) Description 03/13/2022 Procedure Pass [facility], Ct Scan - [address] [address] Social History Tobacco Use Types Packs/Day Years [...] 03/13/2022 11:08 AM Susannah Flores RN * [place] Suicide Severity Rating Scale (Screener/Recent Self-Report) Question [...] of this encounter Care Teams Professor Of Mechanical Engineering Relationship Specialty Start Date End Date Ana María Bryan MD [address] [place] [phone] PCP - General Internal Medicine 03/13/22 documented as of this encounter Additional Source Comments The information contained in this document represents components of the legal health record. It is not the complete legal health record.[facility]
--- OUTSIDE RECORDS SUMMARY | 2025-03-10 15:23 | XMS_ITS | Encounter Summary ---
Author Organization [email or web address] Address 75 [facility] 7t [place] [address] Care Team Providers Care Industrial Truck Mechanic Name Role Phone Ana María Bryan MD Primary Care Provider + Reason for Visit * Reason Comments Med Refill Encounter Details Date Type Department Care Team (Late st Contact Info) Description 11/21/2022 Refill [facility] [address] [place] [address] Ana María Bryan MD 230 [place], [place] [phone] Type 2 diabetes mellitus with stage 3 [...] Description 04/01/2025 10:15 AM EST Office Visit [facility] [address] [place] [address] Ana María Bryan MD [address] [place] [address] documented as of this encounter Visit Diagnoses Diagnosis Type 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
--- OUTSIDE RECORDS SUMMARY | 2025-03-10 15:23 | XMS_ITS | Encounter Summary ---
Author Organization [employer] Address 75 [facility] 7t [place] [address] Care Team Providers Care Precision Assembler Name Role Phone Ana María Bryan MD Primary Care Provider + Encounter Details Date Type Department Care Team (Late Contact Info) Description 09/12/2022 Abstract [facility] MED[facility]INE [address] [place] [address] Ana María Bryan MD [address] [place] [address] Social History Tobacco Use Types Packs/Day Years [...] Description 04/01/2025 10:15 AM EST Office Visit [facility] [address] [place] [phone] Ana María Bryan MD [address] [place] [address] documented as of this encounter Procedures Procedure [...] documented as of this encounter Care Teams Precision Assembler Relationship Specialty Start Date End Date Ana María Bryan MD [address] [place] [address] PCP - General Family Medicine 03/26/18 documented as of this encounter
--- OUTSIDE RECORDS SUMMARY | 2025-03-10 15:23 | XMS_ITS | Encounter Summary ---
Author Organization [facility] Address [address] [facility] [address] [place] [phone] Phone Care Team Providers Care Gynaecological Oncologist Name Role Phone Ana María Bryan MD Primary Care Provider + Encounter Details Date Type Department Care Team (Late st Contact Info) Description 03/15/2022 Procedure Pass [facility]oscopy Admitting Dept Virtual Department [address] [place] [address] Social History Tobacco Use Types Packs/Day Years [...] on filedocumented in this encounter Care Teams Gynaecological Oncologist Relationship Specialty Start Date End Date Ana María Bryan MD [address] [place] [address] [place] [phone] PCP - General Internal Medicine 03/13/22 documented as of this encounter Additional Source Comments The information contained in this document represents components of the legal health record. It is not the complete legal health record.[facility]
--- OUTSIDE RECORDS SUMMARY | 2025-03-10 15:23 | XMS_ITS | Encounter Summary ---
Author Organization [employer] Address [address] [facility] 7t [place] [address] Care Team Providers Care Farm Labor Contractor Name Role Phone Ana María Bryan MD Primary Care Provider + Reason for Visit * Reason Comments Med Refill Encounter Details Date Type Department Care Team ([facility] st Contact Info) Description 03/04/2025 Refill [facility] [address] [place] [address] Kelly Conner NP [address] [place], [place] [phone] Constipation, unspecified constipation type Social History Tobacco Use Types Packs/Day Years [...] Description 04/01/2025 10:15 AM EST Office Visit [facility] [address] [place] [phone] Ana María Bryan MD [address] [place] [address] documented as of this encounter Goals Goal Patient Goal Type Associated Problems [...] type 2 diabetes No Vandana Case PharmD Patient has chronic kidney disease Care Plan Patient has chronic kidney disease No Vandana Case PharmD Weekly blood pressure task Care Plan Weekly blood pressure task No Vandana Case PharmD Patient has chronic kidney disease Care Plan Patient has chronic kidney disease No Vandana Case PharmD documented as of this encounter Visit Diagnoses Diagnosis Constipation, unspecified constipation type documented in this encounter Additional Health Concerns Active Problems Noted Date Diagnosed Date Help patients manage their type 2 diabetes 02/09 Weekly blood pressure task 02/09/2025 Help patients manage their type 2 diabetes 02/09 Patient has chronic kidney disease 02/09/2025 Weekly blood pressure task 02/09/2025 Patient has chronic kidney disease 02/09/2025 Assessment Noted Time PHQ-9 Depression Total Score: 0 10/04/19 25 11:18 AM EDT documented as of this encounter Care Teams Farm Labor Contractor Relationship Specialty Start Date End Date Ana María Bryan MD [address] [place] [phone] PCP - General Family Medicine 03/26/18 documented as of this encounter
--- OUTSIDE RECORDS SUMMARY | 2025-03-10 15:23 | XMS_ITS | Clinical Summary ---
Author Organization [facility] Address [address] [facility] [address] [place] [phone] Phone Care Team Providers Care Highway Traffic Control Technician Name Role Phone Ana María Bryan [...] she states she has never had an NM/stents or stroke and has never had any [...] mg daily. Jardiance held at admission. -Monitor [id number] glucose with meals and nightly, and every [...] exists Adult Td,Tdap Booster 03/09/2027 03/09/2017 COLONOSCOPY 03/15/2027 03/15/2022 COLORECTAL CANCER SCREENING 03/15/2027 PNEUMOCOCCAL VACCINES (50+ years) Completed 05/07/2018, 03/09/2017 [...] this topic Medical Devices Implanted Type Area Nnps Device Identifier Shelf Expiration Date Model / [...] 71 Admit Type: Inpatient Gender: Female Room: [place] [address] Referring MD: Ana María Bryan MD Exam [...] monitored continuously. The Olympus adult variable colonoscope [id number] #4 was introduced through the anus and [...] AM Procedure Date: 03/15/2022 7:17:58 AM [address] [place] [address] us Ana María Bryan MD GI PROCEDURE ORDERABLES Final Result from Last 3 Months or Most Recently Relevant to Health Maintenance Insurance [facility] MEDICARE REPLACEMENT ALEJANDRA ALVAREZ [id number] [facility] MEDICARE REPLACEMENT [facility] MEDICARE [facility]PLACEMENT MEDICARE REPLACEMENT [facility] MEDICARE REPLACEMENT [facility] MEDICARE REPLACEMENT [facility] MEDICARE REPLACEMENT [facility] MEDICARE REPLACEMENT Advance Directives For more information, please contact: [phone] (9AM - 5PM [place], Sunday-Sunday) Documents on File Type Date Recorded Patient Provisioning Specialist Expl anation MOLST 03/22/2022 1:22 PM * Full Code (Latest Code Status on File) Date Activated Date Inactivated Comments 03/24/2022 5:08 PM Question Answer Comments Code Status Confirmed With: Patient * Full Code Date Activated Date Inactivated Comments 03/13/2022 5:52 PM 03/24/2022 5:08 PM Question Answer Comments Code Status Confirmed With: PatientFamily Care Teams Highway Traffic Control Technician Relationship Specialty Start Date End Date Ana María Bryan MD [address] [place] [phone] PCP - General Internal Medicine 03/13/22 Additional Source Comments The information contained in this document represents components of the legal health record. It is not the complete legal health record.[facility]
== END 2025-03-10 11:59 | disposition home or self-care (01) ==
LOC: HO.ENCR 11:36
PROVIDERS: PCP Internal Medicine; Visit Provider Internal Medicine Endocrinology, Diabetes & Metabolism
DX: M81.0 Age-related osteoporosis without current pathological fracture (principal)
CPT/HCPCS: 99213; G2211

== ENCOUNTER → 2025-03-10 11:35 | Outpatient (BNVA) | payer OTHER, SELFPAY | PROVIDERS: PCP Internal Medicine; Visit Provider Internal Medicine Endocrinology, Diabetes & Metabolism | DX: M81.0 Age-related osteoporosis without current pathological fracture (principal); N18.6 End stage renal disease; Z79.899 Other long term (current) drug therapy | CPT/HCPCS: 99212 ==